=== PATIENT | male | born 1960 | race Caucasian/White ===

== ENCOUNTER 2020-09-23 12:19 | Inpatient (IN) | payer OTHER ==
[2020-09-23] MEDS ORDERED: SODIUM CHLORIDE 0.9% 500 ML 500 ML IV STA (13:04)
--- NOTE | 2020-09-23 13:07 | ED ---
General Adult HPI - General Chief complaint: Chest Pain Stated complaint: MIRIAM, leukemia Time Seen by Provider: 09/23/20 12:25 Source: patient, RN notes reviewed, old records reviewed Mode of arrival: wheelchair Limitations: no limitations - History of Present Illness Initial comments: This is a 60-year-old male who presents emergency Department with a past medical history significant for leukemia and COPD. Patient comes in today because he states she's been coughing and having shortness of breath 1 month. Patient states also during that time anytime he takes a deep breath or coughs he states he has sharp anterior chest pain. Patient states it is not coughing and taking deep breath he has no chest pain whatsoever. Patient also states he occa sionally said some discomfort in epigastric region of his abdomen. Patient denies any fever or chills. Patient states symptoms are worsening over the month. Patient denies any smoking history currently. Patient denies any nausea vomiting or diarrhea. Patient denies lightheadedness or dizziness. Patient denies any loss of taste or smell. Denies any swelling to his legs or calf tenderness. - Related Data Allergies Allergy/AdvReac Type Severity Reaction Status Date / Time Penicillins Allergy Unknown Verified 09/23/20 12:32 Review of Systems ROS Statement: Those systems with pertinent positive or pertinent negative responses have been documented in the HPI. ROS Other: All systems not noted in ROS Statement are negative. Past Medical History Past Medical History: Cancer Additional Past Medical History / Comment(s): CCL leukemia, emphysema History of Any Multi-Drug Resistant Organisms: None Reported Past Surgical History: Appendectomy Past Psychological History: Anxiety, Depression Smoking Status: Former smoker Past Alcohol Use History: None Reported Past Drug Use History: Marijuana General Exam - General Exam Comments Initial Comments: GENERAL: Patient is well-developed and well-nourished. Patient is nontoxic and well- hydrated and is in mild distress. ENT: Neck is soft and supple. No significant lymphadenopathy is noted. Oropharynx is clear. Moist mucous membranes. Neck has full range of motion without eliciting any pain. EYES: The sclera were anicteric and conjunctiva were pink and moist. Extraocular movements were intact and pupils were equal round and reactive to light. Eyelids were unremarkable. PULMONARY: Unlabored respirations. Good breath sounds bilaterally. No audible rales rhonchi or wheezing was noted. CARDIOVASCULAR: There is a regular rate and rhythm without any murmurs gallops or rubs. Patient has reproducible anterior chest pain on both sides of the sternum. ABDOMEN: Soft and nontender with normal bowel sounds. SKIN: Skin is clear with no lesions or rashes and otherwise unremarkable. NEUROLOGIC: Patient is alert and oriented x3. Cranial nerves II through XII are grossly intact. Motor and sensory are also intact. Normal speech, volume and content. Symmetrical smile. MUSCULOSKELETAL: Normal extremities with adequate strength and full range of motion. No lower extremity swelling or edema. No calf tenderness. LYMPHATICS: No significant lymphadenopathy is noted PSYCHIATRIC: Normal psychiatric evaluation. Limitations: no limitations Course Vital Signs 09/23/20 12:26 Temperature 98.6 F Pulse Rate 94 Respiratory 18 Rate Blood Pressure 125/77 O2 Sat by Pulse 96 Oximetry Medical Decision Making - Medical Decision Making EKG shows normal sinus rhythm at 95 bpm ND interval 260 QRS is 92 QT interval 352 QTC is 442. Patient's EKG shows no ST segment elevation or depression. Chest x-ray shows shows bilateral pleural effusions more the left than the right. Computed tomography scan was done because the d-dimer is 26. No PE was noted bilateral pleural effusions were noted. I spoke with Dr. Singer agreed to admit the patient admitted the patient wrote admitting orders. - Lab Data Result diagrams: 09/23/20 13:07 09/23/20 13:06 Lab Results 09/23/20 09/23/20 09/23/20 Range/Units 13:06 13:06 13:07 WBC 51.0 H* (3.8-10.6) k/uL RBC 4.41 (4.30-5.90) m/uL Hgb 11.3 L (13.0-17.5) gm/dL Hct 33.8 L (39.0-53.0) % MCV 76.7 L (80.0-100.0) fL MCH 25.7 (25.0-35.0) pg MCHC 33.5 (31.0-37.0) g/dL RDW 19.7 H (11.5-15.5) % Plt Count 505 H (150-450) k/uL MPV 6.6 Neutrophils % (Manual) 8 % Lymphocytes % (Manual) 92 % Neutrophils # (Manual) 4.08 (1.3-7.7) k/uL Lymphocytes # (Manual) 46.92 H (1.0-4.8) k/uL Nucleated RBCs 0 (0-0) /100 WBC Differential Comment P Manual Slide Review Performed Polychromasia Present Hypochromasia Slight Poikilocytosis (manual Present Anisocytosis Slight Microcytosis Moderate PT (9.0-12.0) sec INR (<1.2) APTT (22.0-30.0) sec D-Dimer (<0.60) mg/L FEU Sodium 135 L (137-145) mmol/L Potassium 4.5 (3.5-5.1) mmol/L Chloride 103 (98-107) mmol/L Carbon Dioxide 26 (22-30) mmol/L Anion Gap 6 mmol/L BUN 17 (9-20) mg/dL Creatinine 1.11 (0.66-1.25) mg/dL Est GFR (CKD-EPI)AfAm 82 (>60 ml/min/1.73 sqM) Est GFR (CKD-EPI)NonAf 71 (>60 ml/min/1.73 sqM) Glucose 124 H (74-99) mg/dL Plasma Lactic Acid Justin (0.7-2.0) mmol/L Calcium 9.4 (8.4-10.2) mg/dL Magnesium 1.9 (1.6-2.3) mg/dL Total Bilirubin 0.8 (0.2-1.3) mg/dL AST 30 (17-59) U/L ALT 14 (4-49) U/L Alkaline Phosphatase 116 (38-126) U/L Troponin I <0.012 (0.000-0.034) ng/mL Total Protein 7.0 (6.3-8.2) g/dL Albumin 3.7 (3.5-5.0) g/dL Amylase 41 (30-110) U/L Lipase 103 (23-300) U/L 09/23/20 09/23/20 Range/Units 13:07 13:07 WBC (3.8-10.6) k/uL RBC (4.30-5.90) m/uL Hgb (13.0-17.5) gm/dL Hct (39.0-53.0) % MCV (80.0-100.0) fL MCH (25.0-35.0) pg MCHC (31.0-37.0) g/dL RDW (11.5-15.5) % Plt Count (150-450) k/uL MPV Neutrophils % (Manual) % Lymphocytes % (Manual) % Neutrophils # (Manual) (1.3-7.7) k/uL Lymphocytes # (Manual) (1.0-4.8) k/uL Nucleated RBCs (0-0) /100 WBC Differential Comment Manual Slide Review Polychromasia Hypochromasia Poikilocytosis (manual Anisocytosis Microcytosis PT 25.8 H (9.0-12.0) sec INR 2.7 H (<1.2) APTT 61.0 H (22.0-30.0) sec D-Dimer 26.85 H (<0.60) mg/L FEU Sodium (137-145) mmol/L Potassium (3.5-5.1) mmol/L Chloride (98-107) mmol/L Carbon Dioxide (22-30) mmol/L Anion Gap mmol/L BUN (9-20) mg/dL Creatinine (0.66-1.25) mg/dL Est GFR (CKD-EPI)AfAm (>60 ml/min/1.73 sqM) Est GFR (CKD-EPI)NonAf (>60 ml/min/1.73 sqM) Glucose (74-99) mg/dL Plasma Lactic Acid Justin 0.8 (0.7-2.0) mmol/L Calcium (8.4-10.2) mg/dL Magnesium (1.6-2.3) mg/dL Total Bilirubin (0.2-1.3) mg/dL AST (17-59) U/L ALT (4-49) U/L Alkaline Phosphatase (38-126) U/L Troponin I (0.000-0.034) ng/mL Total Protein (6.3-8.2) g/dL Albumin (3.5-5.0) g/dL Amylase (30-110) U/L Lipase (23-300) U/L Disposition Clinical Impression: Leukemia, Pleural effusion, Thoracic lymphadenopathy, Dyspnea Disposition: ADMITTED IP TO THIS [facility] Referrals: Mikhail Masters MD [Primary Care Provider] - 1-2 days Time of Disposition: 15:25
--- NOTE | 2020-09-23 13:26 | XR ---
EXAMINATION TYPE: XR chest 2V DATE OF EXAM: 09/23/2020 COMPARISON: NONE HISTORY: Chest pain, weight loss, history of leukemia TECHNIQUE: Frontal and lateral views of the chest are obtained. FINDINGS: There is small left pleural effusion and associated left basilar opacity. No suspicious fo dwayne airspace opacity or pneumothorax. The cardiac silhouette size is within normal limits. The osse ous structures are intact. IMPRESSION: Small left pleural effusion with associated left basilar atelectasis and/or infiltrate.
[2020-09-23 13:55] LABS: Albumin 3.7 g/dL (3.5-5.0); Calcium 9.4 mg/dL (8.4-10.2); Magnesium 1.9 mg/dL (1.6-2.3); Potassium 4.5 mmol/L (3.5-5.1); Total Bilirubin 0.8 mg/dL (0.2-1.3)
[2020-09-23 14:00] LABS: Anisocytosis Slight; HCT 33.8 % (39.0-53.0); HGB 11.3 gm/dL (13.0-17.5); Hypochromasia Slight; MCH 25.7 pg (25.0-35.0); MCHC 33.5 g/dL (31.0-37.0); MCV 76.7 fL (80.0-100.0); Mean Platelet Volume 6.6; Microcytosis Moderate; Platelet Count 505 k/uL (150-450); RBC 4.41 m/uL (4.30-5.90); RDW 19.7 % (11.5-15.5)
[2020-09-23 14:14] LABS: INR 2.7 (<1.2); Prothrombin Time 25.8 sec (9.0-12.0)
[2020-09-23 14:19] LABS: D-Dimer 26.85 mg/L FEU (<0.60)
[2020-09-23] MEDS ORDERED: cefTRIAXone IN SWFI 1,000 MG/10 ML SYRINGE IVP STA (14:20)
[2020-09-23 14:57] LABS: Lymphocytes # (M) 46.92 k/uL (1.0-4.8); Neutrophils # (M) 4.08 k/uL (1.3-7.7); Neutrophils % (M) 8 %; Nucleated Red Blood Cells 0 /100 WBC (0-0); Total Cells Counted 200
[2020-09-23 15:01] LABS: Poikilocytosis (M) Present; Polychromasia Present
--- NOTE | 2020-09-23 15:08 | CT ---
EXAMINATION TYPE: CT chest angio for PE DATE OF EXAM: 09/23/2020 COMPARISON: Chest x-ray earlier today HISTORY: Chest pain. History of leukemia. Elevated d-dimer. Evaluate loss. CT DLP: 225.5 mGycm Automated exposure control for dose reduction was used. CONTRAST: CT Chest for pulmonary embolism performed with with IV Contrast, patient injected with 100 mL of Isov ue 370. MIP Images were created and reviewed. FINDINGS: LUNGS: Mild to moderate underlying emphysematous change. Small left pleural effusion. Associated left basilar compressive atelectasis. Tiny right pleural effusion with associated compressive atelectasis . No pneumothorax seen bilaterally. No suspicious masses MEDIASTINUM: There is satisfactory enhancement of the pulmonary artery and its branches, there is no CT evidence for pulmonary embolism. Satisfactory enhancement of the thoracic aorta without aneurysm o r dissection. Bovine type arch which is normal variant. No cardiomegaly. Coronary artery calcificatio n is present which is noted marker for underlying coronary artery disease. No pericardial effusion. OTHER: Suspicious bilateral abnormal axillary lymph nodes. Mediastinum shows ill-defined fluid and f at stranding with probable abnormal low dense lymph nodes in the prevascular space, AP window, bilate ral hilar region, and subcarinal region. Low dense posterior adenopathy in the lower thorax adjacent to the ascending aorta is present. IMPRESSION: 1. No CT evidence for acute pulmonary embolism. 2. [id number] emphysematous change with multiple tiny left greater than right pleural effusions . 3. Abnormal thoracic adenopathy suspicious for active neoplastic or leukemia recurrence given patient 's history of leukemia.
[2020-09-23] MEDS ORDERED: MAG HYDROX/AL HYDROX/SIMETH 30 ML, HYOSCYAMINE ELIXIR 10 ML, LIDOCAINE VISCOUS 2% 10 ML PO ONE ×3 (17:05)
--- NOTE | 2020-09-23 19:07 | P.CONS ---
History of Present Illness - Reason for Consult Consult date: 09/23/20 CLL, bilateral pleural effusions, adenopathy - History of Present Illness The patient is a 60-year-old white male, with a known history of chronic lymphatic leukemia, followed by Dr. Chen in the outpatient setting. He was diagnosed in 12/02. He has been followed so far without need for treatment. He states his baseline white count is in the 50,000 range. He does have some lymph node enlargement in the submandibular area, and some splenomegaly at baseline. He presented to the hospital with complains of shortness of breath, as well as cough that is mostly dry, present for about one month, with slow progression in symptoms. In the emergency room labs showed a white count of 51,000 with predominant lymphocytes consistent with his known history. CT of the chest was negative for PE. It did show small bilateral pleural effusions left greater than right. He was also noted to have bilateral emphysematous changes. In addition bilateral axillary nodes as well as mediastinal nodes were mentioned. Exact size was not however commented upon. The patient's coronavirus testing was negative. He was therefore admitted for further management and consult placed Review of Systems Constitutional: Reports fatigue, Reports weight loss (Reports gradual weight loss of about 15 pounds. However weight has been stable over the past 6 months) Eyes: denies blurred vision, denies pain Ears: deny: decreased hearing, ear discharge, earache, tinnitus Ears, nose, mouth and throat: Reports neck lump Cardiovascular: Reports shortness of breath Respiratory: Reports congestion, Reports cough with sputum, Reports dyspnea Gastrointestinal: Denies abdominal pain, Denies diarrhea, Denies nausea, Denies vomiting Genitourinary: Reports as per HPI Musculoskeletal: Denies myalgias Integumentary: Denies pruritus, Denies rash Neurological: Reports weakness Psychiatric: Denies anxiety, Denies depression Endocrine: Reports fatigue, Reports weight change Hematologic/Lymphatic: Reports as per HPI, Reports lymphadenopathy Past Medical History Past Medical History: Cancer Additional Past Medical History / Comment(s): CCL leukemia, emphysema, plueral effusion 09/23/2020 History of Any Multi-Drug Resistant Organisms: None Reported Past Surgical History: Appendectomy Past Psychological History: Anxiety, Depression Smoking Status: Former smoker Past Alcohol Use History: None Reported Past Drug Use History: Marijuana Medications and Allergies Home Medications Medication Instructions Recorded Confirmed Type Albuterol Sulfate [Proair Hfa] 2 puff INHALATION RT-QID PRN 09/23/20 09/23/20 History Bismuth Subsalicylate 262 mg PO Q6H PRN 09/23/20 09/23/20 History [Pepto-Bismol] Calcium Carbonate [Tums] 1,000 mg PO TID PRN 09/23/20 09/23/20 History Cyclobenzaprine [Flexeril] 10 mg PO HS 09/23/20 09/23/20 History Ferrous Sulfate [Feosol] 325 mg PO DAILY 09/23/20 09/23/20 History Fluticasone/Salmeterol [Advair 1 puff INHALATION RT-BID 09/23/20 09/23/20 History 250-50 Diskus] Ibuprofen [Motrin] 600 mg PO Q8H PRN 09/23/20 09/23/20 History Omeprazole 20 mg PO DAILY 09/23/20 09/23/20 History PARoxetine [Paxil] 20 mg PO DAILY 09/23/20 09/23/20 History Tiotropium Snow [Spiriva] 1 cap INHALATION RT-DAILY@1200 09/23/20 09/23/20 History clonazePAM [KlonoPIN] 0.5 mg PO BID PRN 09/23/20 09/23/20 History Allergies Allergy/AdvReac Type Severity Reaction Status Date / Time Penicillins Allergy Unknown Verified 09/23/20 15:35 Childhood Physical Exam Vitals: Vital Signs Temp Pulse Resp BP Pulse Ox 09/23/20 17:37 78 18 138/70 97 09/23/20 16:01 98.3 F 78 18 130/86 94 L 09/23/20 12:26 98.6 F 94 18 125/77 96 Intake and Output 09/23/20 09/23/20 09/23/20 06:59 14:59 22:59 Other: Weight 62.142 kg 62.142 kg - Constitutional General appearance: no acute distress - EENT Eyes: EOMI, PERRLA ENT: hearing grossly normal, normal oropharynx - Neck Neck: lymphadenopathy (Bilateral submandibular nodes are large, 2.5-3 cm) Thyroid: bilateral: normal size - Respiratory Respiratory: bilateral: diminished (Suggestive of COPD. Markedly decreased air entry in bilateral bases) - Cardiovascular Rhythm: regular Heart sounds: normal: S1, S2 - Gastrointestinal General gastrointestinal: normal bowel sounds, soft, splenomegaly (About 2 fingers below costal margin) - Integumentary Integumentary: normal - Neurologic Neurologic: CNII-XII intact - Musculoskeletal Musculoskeletal: generalized weakness, strength equal bilaterally - Psychiatric Psychiatric: A&O x's 3, appropriate affect Results CBC & Chem 7: 09/23/20 13:07 09/23/20 13:06 Labs: Abnormal Lab Results - Last 24 Hours (Table) 09/23/20 09/23/20 09/23/20 Range/Units 13:06 13:07 13:07 WBC 51.0 H* (3.8-10.6) k/uL Hgb 11.3 L (13.0-17.5) gm/dL Hct 33.8 L (39.0-53.0) % MCV 76.7 L (80.0-100.0) fL RDW 19.7 H (11.5-15.5) % Plt Count 505 H (150-450) k/uL Lymphocytes # (Manual) 46.92 H (1.0-4.8) k/uL PT 25.8 H (9.0-12.0) sec INR 2.7 H (<1.2) APTT 61.0 H (22.0-30.0) sec D-Dimer 26.85 H (<0.60) mg/L FEU Sodium 135 L (137-145) mmol/L Glucose 124 H (74-99) mg/dL Chest x-ray: report reviewed CT scan - chest: report reviewed Assessment and Plan (1) Chronic lymphocytic leukemia not having achieved remission Narrative/Plan: The patient was diagnosed with the same, almost 2 years ago. He had elevated white count and some palpable adenopathy but no other symptoms. Therefore according to the standard of care, he has been followed with observation with no evidence of progression so far. - On evaluation today his WBC is essentially in the same range at 51,000 with predominant lymphocytes. He does appear to have some progression in adenopathy with bilateral axillary nodes palpable. However this is not very marked. CT scans mention presence of mediastinal adenopathy. However the size was not noted. - From the on-call standpoint, the main issue would be to determine if the patient is having progression which is symptomatic or not. The main factor in this would be the thoracic adenopathy. Bowel movements and has been consulted. I will discuss with them as to how significant the mediastinal nodes appeared t o be. In addition we'll also discuss how significant the pleural effusions are, especially if they are enough to warrant thoracentesis. - If lymph nodes and/or pleural effusions are felt to be significant, then progression of the CLL, including as a cause of his current symptoms becomes more likely. In that situation we would need to consider starting the patient on active treatment, as an outpatient. However if these are not felt to be significant, and shortness of breath is more likely due to COPD exacerbation, then we can continue observation. - If the patient doesn't require a thoracentesis, I would recommend performing a low cytometry for B lymphocytes on the fluid, in addition to the other routine tests. Current Visit: Yes Status: Acute Code(s): C91.10 - CHRONIC LYMPHOCYTIC LEUK OF B-CELL TYPE NOT ACHIEVE REMIS SNOMED Code(s): 83724804 (2) Dyspnea Narrative/Plan: As noted above, at this time the main issue is to determine if this is due to progressive CLL, specifically progressive mediastinal adenopathy and located effusions, versus COPD exacerbation. Plan as noted above. The patient clinically appears fairly comfortable at this time Current Visit: Yes Status: Acute Code(s): R06.00 - DYSPNEA, UNSPECIFIED SNOMED Code(s): 803016837 (3) Anemia Narrative/Plan: The patient has a mild anemia on this admission. Limited workup for the same will be ordered, with labs for blood loss and for hemolysis Current Visit: Yes Status: Acute Code(s): D64.9 - ANEMIA, UNSPECIFIED SNOMED Code(s): 197626754 (4) Coagulopathy Narrative/Plan: Patient's labs show elevated PT, PTT and d-dimer. He denies any use of anticoagulation. Check fibrinogen level. Above labs will be repeated on the other extremity, which does not have the IV. If these are persistently abnormal, and the patient will need additional workup for coagulopathy Current Visit: Yes Status: Acute Code(s): D68.9 - COAGULATION DEFECT, UNSPECIFIED SNOMED Code(s): 32783895
[2020-09-23 20:44] LABS: INR 3.1 (<1.2); Partial Thromboplastin Time 68.3 sec (22.0-30.0)
[2020-09-23] MEDS ORDERED: ACETAMINOPHEN TAB 500 MG TAB PO PRN (22:00)
[2020-09-23] MEDS ORDERED: clonazePAM 0.5 MG TAB PO PRN (22:00)
[2020-09-23] MEDS ORDERED: CALCIUM CARBONATE 500 MG CHEWABLE PO PRN (22:00)
[2020-09-23] MEDS ORDERED: IPRATROPIUM-ALBUTEROL 3 ML NEB INHALATION PRN (22:02)
[2020-09-23] MEDS ORDERED: ALBUTEROL HFA INHALER INHALATION PRN (22:15)
[2020-09-23] MEDS: CYCLOBENZAPRINE 10 MG TAB PO SCH (22:33)
[2020-09-23] MEDS: ACETAMINOPHEN TAB 500 MG TAB PO SCH (22:33)
[2020-09-23] MEDS ORDERED: BISMUTH SUBSALICYLATE 4,192 MG/240 ML BOTTLE PO PRN (23:00)
[2020-09-24] MEDS: ACETAMINOPHEN TAB 500 MG TAB PO SCH ×4 (05:34→23:16)
[2020-09-24 06:53] LABS: INR 3.2 (<1.2); Partial Thromboplastin Time 67.8 sec (22.0-30.0); Prothrombin Time 31.2 sec (9.0-12.0)
[2020-09-24] MEDS: SYMBICORT 80-4.5 MCG INHALER INHALATION SCH ×2 (07:31→20:02)
[2020-09-24] MEDS: FERROUS SULFATE 325 MG TAB PO SCH (09:05)
[2020-09-24] MEDS: PANTOPRAZOLE 40 MG TABLET PO SCH (09:05)
[2020-09-24] MEDS: PARoxetine 20 MG TAB PO SCH (09:05)
--- NOTE | 2020-09-24 10:56 | P.PN ---
Subjective Progress Note Date: 09/24/20 Patient reports improvement in shortness of breath and cough. He states he feels significantly better since his admission. No obvious bleeding or bruising noted. Objective - Vital Signs Vital signs: Vital Signs Temp 98 F 09/24/20 09:10 Pulse 89 09/24/20 09:10 Resp 18 09/24/20 09:10 BP 120/86 09/24/20 09:10 Pulse Ox 97 09/24/20 09:10 Intake & Output 09/23/20 09/24/20 09/24/20 18:59 06:59 18:59 Weight 62.142 kg Other: Voiding Method Toilet # Voids 1 1 - Constitutional General appearance: Present: no acute distress - EENT Eyes: Present: EOMI ENT: Present: hearing grossly normal, normal oropharynx - Neck Neck: Present: lymphadenopathy - Respiratory Respiratory: bilateral: diminished - Cardiovascular Rhythm: regular Heart sounds: normal: S1, S2 - Gastrointestinal General gastrointestinal: Present: soft, splenomegaly - Integumentary Integumentary: Present: normal - Neurologic Neurologic: Present: CNII-XII intact - Musculoskeletal Musculoskeletal: Present: strength equal bilaterally - Psychiatric Psychiatric: Present: A&O x's 3, appropriate affect - Additional findings Additional findings: Stable bilateral axillary adenopathy - Labs CBC & Chem 7: 09/23/20 13:07 09/23/20 13:06 Labs: Abnormal Lab Results - Last 24 Hours (Table) 09/23/20 09/23/20 09/23/20 Range/Units 13:06 13:07 13:07 WBC 51.0 H* (3.8-10.6) k/uL Hgb 11.3 L (13.0-17.5) gm/dL Hct 33.8 L (39.0-53.0) % MCV 76.7 L (80.0-100.0) fL RDW 19.7 H (11.5-15.5) % Plt Count 505 H (150-450) k/uL Lymphocytes # (Manual) 46.92 H (1.0-4.8) k/uL PT 25.8 H (9.0-12.0) sec INR 2.7 H (<1.2) APTT 61.0 H (22.0-30.0) sec D-Dimer 26.85 H (<0.60) mg/L FEU Sodium 135 L (137-145) mmol/L Glucose 124 H (74-99) mg/dL 09/23/20 09/24/20 Range/Units 19:20 05:33 WBC (3.8-10.6) k/uL Hgb (13.0-17.5) gm/dL Hct (39.0-53.0) % MCV (80.0-100.0) fL RDW (11.5-15.5) % Plt Count (150-450) k/uL Lymphocytes # (Manual) (1.0-4.8) k/uL PT 30.0 H 31.2 H (9.0-12.0) sec INR 3.1 H 3.2 H (<1.2) APTT 68.3 H 67.8 H (22.0-30.0) sec D-Dimer (<0.60) mg/L FEU Sodium (137-145) mmol/L Glucose (74-99) mg/dL Assessment and Plan (1) Coagulopathy Narrative/Plan: The patient had coags extubated last night and today, from peripheral stick from the upper extremity without the IV. This continued to show elevated PTT/INR and PTT. Etiology at this time is unclear. The patient is asymptomatic from the same. Given history of CLL, there is suspicion that this could represent an inhibitor. - Mixing study has been ordered, along with lupus anticoagulant - Continue to monitor for any signs of clinical bleeding or bruising. Current Visit: Yes Status: Acute Code(s): D68.9 - COAGULATION DEFECT, UNSPECIFIED SNOMED Code(s): 55437556 (2) Chronic lymphocytic leukemia not having achieved remission Narrative/Plan: If coagulopathy is due to development of new inhibitor, then this could potentially be an indication for treatment. At this time I'm also waiting evaluation by pulmonary medicine as to severity of the pleural effusions and mediastinal adenopathy. Current Visit: Yes Status: Acute Code(s): C91.10 - CHRONIC LYMPHOCYTIC LEUK OF B-CELL TYPE NOT ACHIEVE REMIS SNOMED Code(s): 44887106 (3) Dyspnea Current Visit: Yes Status: Acute Code(s): R06.00 - DYSPNEA, UNSPECIFIED SNOMED Code(s): 319224579 (4) Anemia Narrative/Plan: Labs ordered. Results pending to rule out any blood loss or hemolysis Current Visit: Yes Status: Acute Code(s): D64.9 - ANEMIA, UNSPECIFIED SNOMED Code(s): 249055415
[2020-09-24 11:01] LABS: Anisocytosis Slight; HCT 38.3 % (39.0-53.0); HGB 11.6 gm/dL (13.0-17.5); Hypochromasia Slight; MCH 23.9 pg (25.0-35.0); MCHC 30.3 g/dL (31.0-37.0); MCV 78.8 fL (80.0-100.0); Mean Platelet Volume 7.5; Microcytosis Slight; Platelet Count 527 k/uL (150-450); RBC 4.86 m/uL (4.30-5.90); RDW 19.6 % (11.5-15.5); Reticulocyte % 1.5 % (0.5-2.0); WBC 49.6 k/uL (3.8-10.6)
[2020-09-24] MEDS ORDERED: IPRATROPIUM 0.5 MG/2.5 ML NEBU INHALATION SCH (12:00)
[2020-09-24 12:24] LABS: Lymphocytes # (M) 43.65 k/uL (1.0-4.8); Monocytes # (M) 1.49 k/uL (0-1.0); Neutrophils # (M) 4.46 k/uL (1.3-7.7); Neutrophils % (M) 9 %; Nucleated Red Blood Cells 0 /100 WBC (0-0); Total Cells Counted 100
[2020-09-24 12:26] LABS: Poikilocytosis (M) Present
[2020-09-24 12:39] VITALS: BMI 22.1
--- NOTE | 2020-09-24 14:47 | P.CNPUL ---
History of Present Illness Consult date: 09/24/20 Requesting physician: Gregor Singer Reason for consult: dyspnea, abnormal CXR/CT (Small left-sided pleural effusion) Chief complaint: Shortness of breath, chest wall pain History of present illness: This is a very pleasant 60-year-old gentleman with a known history of chronic lymphocytic leukemia, currently under surveillance, on no treatment, follows with Dr. Chen, anxiety/depression, previous smoking history, marijuana use, COPD. He's been maintained on Advair, Spiriva, pro-air in the outpatient setting. He presented to the emergency room yesterday with complaints of increasing shortness of breath, cough and congestion that his been going on for possibly one month. He is also had some sharp anterior chest pain and chest wall pain. Abdominal discomfort as well. Chest x-ray revealed small left pleural effusion with associated left basilar atelectasis/infiltrate. CT angiogram ruled out pulmonary embolism. There is [id number] emphysematous changes and multiple tiny left greater than right pleural effusions. There is also noted abnormal thoracic adenopathy suspicious for active neoplastic or leukemia progression given the patient's history. His baseline white count is around 50,000. He does have some lymph node enlargement in the submandibular area and possible splenomegaly accounting for his abdominal discomfort. White count 49.6. Hemoglobin 11.6. Platelet count 527. Lymphocytes 43.6. Monocytes 1.49. INR 3.2. D-dimer 26.85. Sodium 135. Potassium 4.5. Creatinine 1.11. Troponin negative. Coronavirus negative. He is seen today in consultation on the regular medical floor. He is currently sitting up at the bedside. Awake and alert in no acute distress. Maintaining good O2 saturations in the upper 90s on room air. He's been afebrile. Hemodynamically stable. Initiated on Symbicort and DuoNeb inhalations. Review of Systems REVIEW OF SYSTEMS: CONSTITUTIONAL: Denies any recent significant weight loss or weight gain. EYES: Denies change in vision. EARS, NOSE, MOUTH, THROAT: Denies headaches, denies sore throat. CARDIOVASCULAR: Positive for chest wall pain no typical chest pain, palpitations or syncopal episodes. RESPIRATORY: Positive for shortness of breath, cough, congestion no hemoptysis. GASTROINTESTINAL: Denies change in appetite, denies abdominal pain GENITOURINARY: Denies hematuria, denies infections. MUSKULOSKELETAL: Denies pain, denies swelling. INTEGUMENTARY: Denies rash, denies eczema. NEUROLOGICAL: Denies recent memory loss, no recent seizure activity. PSYCHIATRIC: Denies anxiety, denies depression. HEMATOLOGIC/LYMPHATIC: Positive for enlarged lymph nodes. Past Medical History Past Medical History: Cancer Additional Past Medical History / Comment(s): CCL leukemia, emphysema, plueral effusion 09/23/2020 History of Any Multi-Drug Resistant Organisms: None Reported Past Surgical History: Appendectomy Past Psychological History: Anxiety, Depression Smoking Status: Former smoker Past Alcohol Use History: None Reported Past Drug Use History: Marijuana Medications and Allergies Home Medications Medication Instructions Recorded Confirmed Type Albuterol Sulfate [Proair Hfa] 2 puff INHALATION RT-QID PRN 09/23/20 09/23/20 History Bismuth Subsalicylate 262 mg PO Q6H PRN 09/23/20 09/23/20 History [Pepto-Bismol] Calcium Carbonate [Tums] 1,000 mg PO TID PRN 09/23/20 09/23/20 History Cyclobenzaprine [Flexeril] 10 mg PO HS 09/23/20 09/23/20 History Ferrous Sulfate [Feosol] 325 mg PO DAILY 09/23/20 09/23/20 History Fluticasone/Salmeterol [Advair 1 puff INHALATION RT-BID 09/23/20 09/23/20 History 250-50 Diskus] Ibuprofen [Motrin] 600 mg PO Q8H PRN 09/23/20 09/23/20 History Omeprazole 20 mg PO DAILY 09/23/20 09/23/20 History PARoxetine [Paxil] 20 mg PO DAILY 09/23/20 09/23/20 History Tiotropium [place] [Spiriva] 1 cap INHALATION RT-DAILY@1200 09/23/20 09/23/20 History clonazePAM [KlonoPIN] 0.5 mg PO BID PRN 09/23/20 09/23/20 History Allergies Allergy/AdvReac Type Severity Reaction Status Date / Time Penicillins Allergy Unknown Verified 09/23/20 15:35 Childhood Physical Exam Vitals: Vital Signs Temp Pulse Pulse Resp BP BP Pulse Ox 09/24/20 11:34 88 09/24/20 11:22 84 09/24/20 09:10 98 F 89 18 120/86 97 09/24/20 07:30 17 09/24/20 01:06 98.1 F 74 16 118/71 95 09/23/20 20:00 97.4 F L 90 20 125/76 95 09/23/20 17:37 78 18 138/70 97 09/23/20 16:01 98.3 F 78 18 130/86 94 L Intake and Output 09/23/20 09/24/20 09/24/20 22:59 06:59 14:59 Other: Voiding Method Toilet # Voids 1 1 Weight 62.142 kg 62.142 kg GENERAL EXAM: Alert, active, very pleasant 60-year-old gentleman, on room air, comfortable in no apparent distress. HEAD: Normocephalic. EYES: Normal reaction of pupils, equal size. NOSE: Clear with pink turbinates. THROAT: No erythema or exudates. NECK: Palpable lymph nodes. CHEST: No chest wall deformity. LUNGS: Equal air entry with faint end expiratory wheeze, diminished in the left base. CVS: S1 and S2 normal with no audible murmur, regular rhythm. ABDOMEN: Suspect splenomegaly, normal bowel sounds, no guarding or rigidity. SPINE: No scoliosis or deformity SKIN: No rashes CENTRAL NERVOUS SYSTEM: No focal deficits, tone is normal in all 4 extremities. EXTREMITIES: Bilateral axillary lymph nodes palpable. There is no peripheral edema. No clubbing, no cyanosis. Peripheral pulses are intact. Results - Laboratory Findings CBC and BMP: 09/24/20 05:33 09/23/20 13:06 PT/INR, D-dimer PT 31.2 sec (9.0-12.0) H 09/24/20 05:33 INR 3.2 (<1.2) H 09/24/20 05:33 D-Dimer 26.85 mg/L FEU (<0.60) H 09/23/20 13:07 Abnormal lab findings: Abnormal Labs 09/23/20 09/23/20 09/23/20 13:06 13:07 13:07 WBC 51.0 H* Hgb 11.3 L Hct 33.8 L MCV 76.7 L MCH MCHC RDW 19.7 H Plt Count 505 H Lymphocytes # (Manual) 46.92 H Monocytes # (Manual) PT 25.8 H INR 2.7 H APTT 61.0 H D-Dimer 26.85 H Sodium 135 L Glucose 124 H 09/23/20 09/24/20 09/24/20 19:20 05:33 05:33 WBC 49.6 H Hgb 11.6 L Hct 38.3 L MCV 78.8 L MCH 23.9 L MCHC 30.3 L RDW 19.6 H Plt Count 527 H Lymphocytes # (Manual) 43.65 H Monocytes # (Manual) 1.49 H PT 30.0 H 31.2 H INR 3.1 H 3.2 H APTT 68.3 H 67.8 H D-Dimer Sodium Glucose - Diagnostic Findings Chest x-ray: image reviewed CT scan - chest: image reviewed Assessment and Plan Assessment: 1 Dyspnea secondary to small bilateral effusions left greater than right, acute exacerbation of chronic obstructive pulmonary disease 2 Chest wall pain secondary to above 3 Lymphadenopathy, splenomegaly secondary to chronic lymphocytic leukemia 4 Chronic lymphocytic leukemia under surveillance, no treatment thus far 5 Leukocytosis secondary to above 6 Coagulopathy secondary to above 7 Former smoker 8 History of anxiety/depression 9 History of marijuana use Plan: The patient was seen and evaluated by Dr. Florez Chest x-ray, CAT scans and labs reviewed Consult interventional radiology for diagnostic CT-guided left-sided thoracentesis Rule out progression of his CLL Continue Symbicort, DuoNeb inhalations Add a short course of steroids We will continue to follow and make further recommendations based on his clinical status I, the cosigning physician, performed a history & physical examination of the patient. Lungs sounds with faint end expiratory wheeze, diminished in the left base. Maintaining good O2 saturations in the 90s on room air. I discussed the assessment and plan of care with my nurse practitioner, Elif Regalado. I attest to the above consultation as dictated by her. Time with Patient: Greater than 30
[2020-09-24] MEDS: IPRATROPIUM-ALBUTEROL 3 ML NEB INHALATION SCH ×2 (15:06→20:02)
[2020-09-24] MEDS: methylPREDNISolone SOD SUCCI 40 MG/ML 1 ML VIAL IV SCH ×2 (15:18→19:39)
[2020-09-24] MEDS ORDERED: HYDROmorphone 1 MG/ML 1 ML SYRINGE IVP PRN (17:13)
[2020-09-24 18:05] LABS: % Iron Saturation 27.94 (15.00-50.00)
[2020-09-24] MEDS: CYCLOBENZAPRINE 10 MG TAB PO SCH (19:38)
--- NOTE | 2020-09-24 21:22 | P.HPIM ---
History of Present Illness H&P Date: 09/24/20 Chief Complaint: Short of breath History of presenting complaint: This is a pleasant 60-year-old patient of Dr. Renny Masters. Chronic stable medical conditions include anxiety depression, GERD, COPD. Patient has known CLL with a baseline count running around 50. Follow[address] Faulkner. For at least over 2 weeks patient is noted to be increasingly short of breath. Has got a cough especially when he lies down. Does bring up some white phlegm. Denies any obvious fever and chills. Appetite is okay. The course of the year patient lost close to 30 pounds from 160 down to about 1:30 pounds. Review of systems: GEN.: Tired EYES: None HEENT: None NECK: None RESPIRATORY: As above CARDIOVASCULAR: None GASTROINTESTINAL: None GENITOURINARY: None MUSCULOSKELETAL: None LYMPHATICS: None HEMATOLOGICAL: None PSYCHIATRY: None NEUROLOGICAL: None Past medical history to include: Chronic lymphoid leukemia, COPD, anxiety, GERD, Social history: Patient smoked about a pack and half a day for close to 42 years stopped about 5 days ago. Lives alone. Employed for [email or web address] Family history: Reviewed, noncontributory to presentation Physical examination: VITAL SIGNS: 98.6, 94, 18, 125/77, 96% room air GENERAL: BMI 22.1, reclining in bed, not in distress. EYES: Pupils equal. Conjunctiva normal. HEENT: External appearance of nose and ears normal, oral cavity grossly normal. NECK: JVD not raised; masses not palpable. HEART: First and second heart sounds are normal; no edema. LUNGS: Respiratory rate increased, decreased breath sounds. ABDOMEN: Soft, nontender, liver spleen not palpable, no masses palpable. PSYCH: Alert and oriented x3; mood and affect normal. NEUROLOGICAL: Cranial nerves grossly intact; no facial asymmetry, power and sensation grossly intact. LYMPHATICS: [Lymph nodes palpable in the neck and submandibular area. INVESTIGATIONS, reviewed in the clinical context: White count 51 hemoglobin 11.3 platelets 505 lymphocytes 46.9 Pro-time 25.8 PTT 61.0 d-dimer 26.8 Potassium 4.5 creatinine 1.11 Coronavirus P/Cr-not detected EKG tracing personally reviewed by me-normal sinus rhythm Chest x-ray film personally reviewed by me-left pleural effusion CT chest angiogram for PE protocol-no PE. Mild to moderate emphysematous changes with left greater than right pleural effusion. Abnormal adenopathy Assessment: -Acute COPD exacerbation in an ex-smoker -Left pleural effusion, cause unclear -Chronic lymphocytic leukemia -Abnormal clotting profile with abnormal pro time PTT -GERD -Anxiety depression not otherwise specified Plan: Patient put on IV Solu-Medrol DuoNeb home medications resumed. Consultation is made to pulmonary and hematology. Left pleural effusion leading to be tapped. Care was discussed with the patient questions answered. Patient is auto anticoagulated. Past Medical History Past Medical History: Cancer Additional Past Medical History / Comment(s): CCL leukemia, emphysema, plueral effusion 09/23/2020 History of Any Multi-Drug Resistant Organisms: None Reported Past Surgical History: Appendectomy Past Psychological History: Anxiety, Depression Smoking Status: Former smoker Past Alcohol Use History: None Reported Past Drug Use History: Marijuana Medications and Allergies Home Medications Medication Instructions Recorded Confirmed Type Albuterol Sulfate [Proair Hfa] 2 puff INHALATION RT-QID PRN 09/23/20 09/23/20 History Bismuth Subsalicylate 262 mg PO Q6H PRN 09/23/20 09/23/20 History [Pepto-Bismol] Calcium Carbonate [Tums] 1,000 mg PO TID PRN 09/23/20 09/23/20 History Cyclobenzaprine [Flexeril] 10 mg PO HS 09/23/20 09/23/20 History Ferrous Sulfate [Feosol] 325 mg PO DAILY 09/23/20 09/23/20 History Fluticasone/Salmeterol [Advair 1 puff INHALATION RT-BID 09/23/20 09/23/20 History 250-50 Diskus] Ibuprofen [Motrin] 600 mg PO Q8H PRN 09/23/20 09/23/20 History Omeprazole 20 mg PO DAILY 09/23/20 09/23/20 History PARoxetine [Paxil] 20 mg PO DAILY 09/23/20 09/23/20 History Tiotropium [place] [Spiriva] 1 cap INHALATION RT-DAILY@1200 09/23/20 09/23/20 History clonazePAM [KlonoPIN] 0.5 mg PO BID PRN 09/23/20 09/23/20 History Allergies Allergy/AdvReac Type Severity Reaction Status Date / Time Penicillins Allergy Unknown Verified 09/23/20 15:35 Childhood Physical Exam Vitals: Vital Signs Temp Pulse Pulse Resp BP BP Pulse Ox 09/24/20 11:34 88 09/24/20 11:22 84 09/24/20 09:10 98 F 89 18 120/86 97 09/24/20 07:30 17 09/24/20 01:06 98.1 F 74 16 118/71 95 09/23/20 20:00 97.4 F L 90 20 125/76 95 09/23/20 17:37 78 18 138/70 97 09/23/20 16:01 98.3 F 78 18 130/86 94 L 09/23/20 12:26 98.6 F 94 18 125/77 96 Intake and Output 09/23/20 09/24/20 09/24/20 22:59 06:59 14:59 Other: Voiding Method Toilet # Voids 1 1 Weight 62.142 kg Results CBC & Chem 7: 09/24/20 05:33 09/23/20 13:06 Labs: Abnormal Lab Results - Last 24 Hours (Table) 09/23/20 09/23/20 09/23/20 Range/Units 13:06 13:07 13:07 WBC 51.0 H* (3.8-10.6) k/uL Hgb 11.3 L (13.0-17.5) gm/dL Hct 33.8 L (39.0-53.0) % MCV 76.7 L (80.0-100.0) fL MCH (25.0-35.0) pg MCHC (31.0-37.0) g/dL RDW 19.7 H (11.5-15.5) % Plt Count 505 H (150-450) k/uL Lymphocytes # (Manual) 46.92 H (1.0-4.8) k/uL PT 25.8 H (9.0-12.0) sec INR 2.7 H (<1.2) APTT 61.0 H (22.0-30.0) sec D-Dimer 26.85 H (<0.60) mg/L FEU Sodium 135 L (137-145) mmol/L Glucose 124 H (74-99) mg/dL 09/23/20 09/24/20 09/24/20 Range/Units 19:20 05:33 05:33 WBC 49.6 H (3.8-10.6) k/uL Hgb 11.6 L (13.0-17.5) gm/dL Hct 38.3 L (39.0-53.0) % MCV 78.8 L (80.0-100.0) fL MCH 23.9 L (25.0-35.0) pg MCHC 30.3 L (31.0-37.0) g/dL RDW 19.6 H (11.5-15.5) % Plt Count 527 H (150-450) k/uL Lymphocytes # (Manual) (1.0-4.8) k/uL PT 30.0 H 31.2 H (9.0-12.0) sec INR 3.1 H 3.2 H (<1.2) APTT 68.3 H 67.8 H (22.0-30.0) sec D-Dimer (<0.60) mg/L FEU Sodium (137-145) mmol/L Glucose (74-99) mg/dL Thrombosis Risk Factor Assmnt - Choose All That Apply Any of the Below Risk Factors Present?: Yes Each Factor Represents 1 point: Abnormal pulmonary function (COPD) Other Risk Factors: Yes Each Risk Factor Represents 2 Points: Age 61-74 years Other congenital or acquired thrombophilia - If yes, enter type in comment: No Thrombosis Risk Factor Assessment Total Risk Factor Score: 3 Thrombosis Risk Factor Assessment Level: Moderate Risk
[2020-09-25] MEDS: ACETAMINOPHEN TAB 500 MG TAB PO SCH ×3 (05:00→18:23)
[2020-09-25] MEDS: IPRATROPIUM-ALBUTEROL 3 ML NEB INHALATION SCH ×4 (08:13→20:53)
[2020-09-25] MEDS: SYMBICORT 80-4.5 MCG INHALER INHALATION SCH ×2 (08:13→20:53)
[2020-09-25] MEDS: FERROUS SULFATE 325 MG TAB PO SCH (09:18)
[2020-09-25] MEDS: PARoxetine 20 MG TAB PO SCH (09:19)
[2020-09-25] MEDS: PANTOPRAZOLE 40 MG TABLET PO SCH (09:19)
[2020-09-25] MEDS: methylPREDNISolone SOD SUCCI 40 MG/ML 1 ML VIAL IV SCH ×2 (09:19→20:31)
--- NOTE | 2020-09-25 13:07 | P.PN ---
Subjective Progress Note Date: 09/25/20 Principal diagnosis: Dyspnea, small left-sided pleural effusion This is a very pleasant 60-year-old gentleman with a known history of chronic lymphocytic leukemia, currently under surveillance, on no treatment, follows with Dr. Chen, anxiety/depression, previous smoking history, marijuana use, COPD. He's been maintained on Advair, Spiriva, pro-air in the outpatient setting. He presented to the emergency room yesterday with complaints of increasing shortness of breath, cough and congestion that his been going on for possibly one month. He is also had some sharp anterior chest pain and chest wall pain. Abdominal discomfort as well. Chest x-ray revealed small left ple ural effusion with associated left basilar atelectasis/infiltrate. CT angiogram ruled out pulmonary embolism. There is [id number] emphysematous changes and multiple tiny left greater than right pleural effusions. There is also noted abnormal thoracic adenopathy suspicious for active neoplastic or leukemia progression given the patient's history. His baseline white count is around 50,000. He does have some lymph node enlargement in the submandibular area and possible splenomegaly accounting for his abdominal discomfort. White count 49.6. Hemoglobin 11.6. Platelet count 527. Lymphocytes 43.6. Monocytes 1.49. INR 3.2. D-dimer 26.85. Sodium 135. Potassium 4.5. Creatinine 1.11. Troponin negative. Coronavirus negative. He is seen today in consultation on the regular medical floor. He is currently sitting up at the bedside. Awake and alert in no acute distress. Maintaining good O2 saturations in the upper 90s on room air. He's been afebrile. Hemodynamically stable. Initiated on Symbicort and DuoNeb inhalations. The patient is seen today February or 2020 follow-up on the regular medical floor. He is awake and alert in no acute distress. Currently sitting up in a chair at the bedside. Maintaining O2 saturations in the 90s on room air. Blood culture reveals no growth to date. Remains on Symbicort, DuoNeb inhalations and IV Solu-Medrol. We easier today compared to yesterday. Objective - Vital Signs Vital signs: Vital Signs Temp 97.5 F L 09/25/20 08:00 Pulse 88 09/25/20 12:01 Resp 17 09/25/20 08:00 BP 117/71 09/25/20 08:00 Pulse Ox 94 L 09/25/20 08:00 Intake & Output 09/24/20 09/25/20 09/25/20 18:59 06:59 18:59 Weight 62.142 kg Other: Voiding Method Toilet # Voids 2 2 # Bowel Movements 1 - Exam GENERAL EXAM: Alert, active, very pleasant 60-year-old gentleman, on room air, comfortable in no apparent distress. HEAD: Normocephalic. EYES: Normal reaction of pupils, equal size. NOSE: Clear with pink turbinates. THROAT: No erythema or exudates. NECK: Palpable lymph nodes. CHEST: No chest wall deformity. LUNGS: Equal air entry with faint end expiratory wheeze, diminished in the left base. CVS: S1 and S2 normal with no audible murmur, regular rhythm. ABDOMEN: Suspect splenomegaly, normal bowel sounds, no guarding or rigidity. SPINE: No scoliosis or deformity SKIN: No rashes CENTRAL NERVOUS SYSTEM: No focal deficits, tone is normal in all 4 extremities. EXTREMITIES: Bilateral axillary lymph nodes palpable. There is no peripheral edema. No clubbing, no cyanosis. Peripheral pulses are intact. - Labs CBC & Chem 7: 09/24/20 05:33 09/23/20 13:06 Labs: Abnormal Lab Results - Last 24 Hours (Table) 09/24/20 09/24/20 Range/Units 05:33 05:33 Haptoglobin 231.0 H (31.2-198.0) mg/dL Iron 57 L (65-175) ug/dL TIBC 204 L (228-460) ug/dL Microbiology - Last 24 Hours (Table) 09/23/20 15:00 Blood Culture - Preliminary Blood No Growth after 24 hours 09/23/20 14:43 Blood Culture - Preliminary Blood No Growth after 24 hours Assessment and Plan Assessment: 1 Dyspnea secondary to small bilateral effusions left greater than right, acute exacerbation of chronic obstructive pulmonary disease 2 Chest wall pain secondary to above 3 Lymphadenopathy, splenomegaly secondary to chronic lymphocytic leukemia 4 Chronic lymphocytic leukemia under surveillance, no treatment thus far 5 Leukocytosis secondary to above 6 Coagulopathy secondary to above 7 Former smoker 8 History of anxiety/depression 9 History of marijuana use Plan: The patient was seen and evaluated by Dr. Vikki Hartley from the pulmonary standpoint, on room air Consulted interventional radiology for diagnostic CT-guided left-sided thoracentesis Rule out progression of his CLL Continue Symbicort, DuoNeb inhalations, steroids We will continue to follow and make further recommendations based on his clinical status I, the cosigning physician, performed a history & physical examination of the patient. Lungs sounds with faint end expiratory wheeze, diminished in the left base. Maintaining good O2 saturations in the 90s on room air. I discussed the assessment and plan of care with my nurse practitioner, Elif Regalado. I attest to the above note as dictated by her.
[2020-09-25] MEDS: CYCLOBENZAPRINE 10 MG TAB PO SCH (20:32)
--- NOTE | 2020-09-25 20:39 | P.PN ---
Progress Note - Text Progress Note Date: 09/25/20 Chief Complaint: Short of breath History of presenting complaint: This is a pleasant 60-year-old patient of Dr. Renny Masters. Chronic stable medical conditions include anxiety depression, GERD, COPD. Patient has known CLL with a baseline count running around 50. Follow[address] by Dr[address] Faulkner. For at least over 2 weeks patient is noted to be increasingly short of breath. Has got a cough especially when he lies down. Does bring up some white phlegm. Denies any obvious fever and chills. Appetite is okay. The course of the year patient lost close to 30 pounds from 160 down to about 1:30 pounds. Admitted with acute COPD exacerbation. Started on nebulized bronchodilators and steroids. Patient does complain of a lesion in the roof of the mouth. That bleeds intermittently. Today-feeling much better. Oral intake is good. Breathing improved. Review of systems: Was done for constitutional, cardiovascular, GI, pulmonary. relevant finding as above Active Medications Acetaminophen (Acetaminophen Tab 500 Mg Tab) 1,000 mg PO Q6HR [facility] Last Admin: 09/25/20 18:23 Dose: 1,000 mg Documented by: Albuterol Sulfate (Albuterol Hfa Inhaler) 2 puff INHALATION RT-QID PRN PRN Reason: Shortness Of Breath Albuterol/Ipratropium (Ipratropium-Albuterol 3 Ml Neb) 3 ml INHALATION RT-QID [facility] Last Admin: 09/25/20 16:48 Dose: 3 ml Documented by: Bismuth Subsalicylate (Bismuth Subsalicylate 4,192 Mg/240 Ml Bottle) 262 mg PO Q6H PRN PRN Reason: GI Upset Last Admin: 09/24/20 19:37 Dose: 262 mg Documented by: Budesonide/Formoterol Fumarate (Symbicort 80-4.5 Mcg Inhaler) 2 puff INHALATION RT-BID [facility] Last Admin: 09/25/20 08:13 Dose: 2 puff Documented by: Calcium Carbonate/Glycine (Calcium Carbonate 500 Mg Chewable) 1,000 mg PO TID PRN PRN Reason: Heartburn Clonazepam (Clonazepam 0.5 Mg Tab) 0.5 mg PO BID PRN PRN Reason: Anxiety Cyclobenzaprine HCl (Cyclobenzaprine 10 Mg Tab) 10 mg PO HS [facility] Last Admin: 09/25/20 20:32 Dose: 10 mg Documented by: Ferrous Sulfate (Ferrous Sulfate 325 Mg Tab) 325 mg PO DAILY [facility] Last Admin: 09/25/20 09:18 Dose: 325 mg Documented by: Methylprednisolone Sodium Succinate (Methylprednisolone Sod Succi 40 Mg/Ml 1 Ml Vial) 40 mg IV Q12HR [facility] Last Admin: 09/25/20 20:31 Dose: 40 mg Documented by: Pantoprazole Sodium (Pantoprazole 40 Mg Tablet) 40 mg PO DAILY [facility] Last Admin: 09/25/20 09:19 Dose: 40 mg Documented by: Paroxetine HCl (Paroxetine 20 Mg Tab) 20 mg PO DAILY [facility] Last Admin: 09/25/20 09:19 Dose: 20 mg Documented by: Past medical history to include: Chronic lymphoid leukemia, COPD, anxiety, GERD, Social history: Patient smoked about a pack and half a day for close to 42 years stopped about 5 days ago. Lives alone. Employed for [employer] Family history: Reviewed, noncontributory to presentation Physical examination: VITAL SIGNS: 97.5, 88, 17, 117/71, 94% room air GENERAL: Sitting up, more comfortable today EYES: Pupils equal. Conjunctiva normal. HEENT: External appearance of nose and ears normal, linear superficial ulcer on the roof of the mouth posteriorly NECK: JVD not raised; masses not palpable. HEART: First and second heart sounds are normal; no edema. LUNGS: Respiratory rate normal, decreased breath sounds. ABDOMEN: Soft, nontender, liver spleen not palpable, no masses palpable. PSYCH: Alert and oriented x3; mood and affect normal. LYMPHATICS: [Lymph nodes palpable in the neck and submandibular area. INVESTIGATIONS, reviewed in the clinical context: White count 51 hemoglobin 11.3 platelets 505 lymphocytes 46.9 Pro-time 25.8 PTT 61.0 d-dimer 26.8 Potassium 4.5 creatinine 1.11 Coronavirus P/Cr-not detected EKG tracing personally reviewed by me-normal sinus rhythm Chest x-ray film personally reviewed by me-left pleural effusion CT chest angiogram for PE protocol-no PE. Mild to moderate emphysematous changes with left greater than right pleural effusion. Abnormal adenopathy Assessment: -Acute COPD exacerbation in an ex-smoker improving -Superficial ulcer on the roof of the mouth, possible apthhous -Left pleural effusion, cause unclear-awaiting diagnostic thoracentesis -Chronic lymphocytic leukemia -Abnormal clotting profile with abnormal pro time PTT-mixing study has been ordered along with lupus anticoagulant. -GERD -Anxiety depression not otherwise specified Plan: We'll consult ENT for the oral ulcer. Awaiting photosynthesis. Continue bronchodilator IV Solu-Medrol. Improving.
[2020-09-25] MEDS: CHLORHEXIDINE GLUCONATE 15 ML CUP MUCOUS MEM SCH (22:00)
[2020-09-26] MEDS: ACETAMINOPHEN TAB 500 MG TAB PO SCH ×5 (00:04→23:10)
[2020-09-26] MEDS: PANTOPRAZOLE 40 MG TABLET PO SCH (07:34)
[2020-09-26] MEDS: methylPREDNISolone SOD SUCCI 40 MG/ML 1 ML VIAL IV SCH ×2 (07:34→20:44)
[2020-09-26] MEDS: FERROUS SULFATE 325 MG TAB PO SCH (07:34)
[2020-09-26] MEDS: PARoxetine 20 MG TAB PO SCH (07:35)
[2020-09-26] MEDS: CHLORHEXIDINE GLUCONATE 15 ML CUP MUCOUS MEM SCH ×2 (07:35→20:44)
[2020-09-26] MEDS: SYMBICORT 80-4.5 MCG INHALER INHALATION SCH ×2 (09:14→19:49)
[2020-09-26] MEDS: IPRATROPIUM-ALBUTEROL 3 ML NEB INHALATION SCH ×4 (09:14→19:49)
[2020-09-26 09:26] LABS: INR 2.9 (<1.2); Prothrombin Time 28.4 sec (9.0-12.0)
[2020-09-26] MEDS ORDERED: PHYTONADIONE 5 MG in SODIUM CHLORIDE 0.9% 50 ML IVPB STA (11:39)
[2020-09-26] MEDS ORDERED: Kcentra PER PHARMACY 1 EACH MISC MISCELLANE PRN (11:55)
--- NOTE | 2020-09-26 13:59 | P.PN ---
Subjective Progress Note Date: 09/26/20 Principal diagnosis: dyspnea In f/u today pt denies MIRIAM, he is able to ambulate without too much SOB. He is tolerating oral intake, no other physical symptoms to report. Objective - Vital Signs Vital signs: Vital Signs Temp 97.6 F 09/26/20 07:48 Pulse 96 09/26/20 12:27 Resp 16 09/26/20 08:00 BP 105/66 09/26/20 07:48 Pulse Ox 98 09/26/20 09:14 Intake & Output 09/25/20 09/26/20 09/26/20 18:59 06:59 18:59 Intake Total 236 Balance 236 Intake: Oral 236 Other: Voiding Method Toilet # Voids 1 # Bowel Movements 1 - Constitutional General appearance: Present: cooperative, no acute distress, thin - EENT Eyes: Present: anicteric sclerae, EOMI - Respiratory Respiratory: bilateral: diminished (bases) - Cardiovascular Rhythm: regular Heart sounds: normal: S1, S2 Abnormal Heart Sounds: Absent: systolic murmur, diastolic murmur, rub, S3 Gallop, S4 Gallop, click, other - Peripheral edema leg Peripheral Edema: bilateral: None - Gastrointestinal General gastrointestinal: Present: normal bowel sounds, soft - Neurologic Neurologic: Present: CNII-XII intact - Musculoskeletal Musculoskeletal: Present: strength equal bilaterally - Psychiatric Psychiatric: Present: A&O x's 3, appropriate affect, intact judgment & insight - Labs CBC & Chem 7: 09/24/20 05:33 09/23/20 13:06 Labs: Abnormal Lab Results - Last 24 Hours (Table) 09/26/20 Range/Units 08:44 PT 28.4 H (9.0-12.0) sec INR 2.9 H (<1.2) Microbiology - Last 24 Hours (Table) 09/23/20 15:00 Blood Culture - Preliminary Blood No Growth after 48 hours 09/23/20 14:43 Blood Culture - Preliminary Blood No Growth after 48 hours Assessment and Plan (1) Pleural effusion Current Visit: Yes Status: Acute Priority: High Code(s): J90 - PLEURAL EFFUSION, NOT ELSEWHERE CLASSIFIED SNOMED Code(s): 78529158 (2) Thoracic lymphadenopathy Current Visit: Yes Status: Acute Priority: Medium Code(s): R59.0 - LOCALIZED ENLARGED LYMPH NODES SNOMED Code(s): 758416668 (3) Coagulopathy Current Visit: Yes Status: Acute Priority: High Code(s): D68.9 - COAGULATION DEFECT, UNSPECIFIED SNOMED Code(s): 71538895 (4) Chronic lymphocytic leukemia not having achieved remission Current Visit: Yes Status: Acute Priority: Medium Code(s): C91.10 - CHRONIC LYMPHOCYTIC LEUK OF B-CELL TYPE NOT ACHIEVE REMIS SNOMED Code(s): 01590075 Plan: Wanting to work up adenopathy. Ordered thoracentesis with flow cytometry on pleural fluid to rule out a progressive CLL. Pt has undiagnosed coagulopathy, pending lupus anticoagulant and mixing studies. If lupus anticoagulant positive then coags are artifactually elevated in vitro. Positive lupus anticoagulant ab is actually a pro coagulant in vivo so, thoracentesis can be performed without further intervention. If negative then, antibodies to clotting factors is the most likely cause for coagulopathy. Then the recommendation is for k-centra administration prior to procedure as there are more activated clotting factors in Kcentric. Case was discussed at length with PharmD. Since pt was not severely symptomatic we will await results of lab studies ordered. Thoracentesis is for diagnostic purposes as well as symptoms. Pending discussion with Pulmonary for comment on mediastinal lymphadenopathy- does it appeear pathologic vs reactive. Attests: I have seen and examined pt, developed impression and plan of care. Discussed with dictator. Agree with dictation, documented as a scribe. Time with Patient: Greater than 30
[2020-09-26 15:29] LABS: APTT 104 Sec(s) (<43); APTT 1:1 Mix 71 Sec(s) (<43); DRVVT 1:1 Mix 58 Sec(s) (<44); DRVVT Confirmation Negative (Negative); Dilute Russell Viper Venom 58 Sec(s) (<44); Hexagonal Phase Neutralization Positive (Negative)
--- NOTE | 2020-09-26 16:11 | P.PN ---
Subjective Progress Note Date: 09/26/20 Principal diagnosis: Dyspnea, small left-sided pleural effusion This is a very pleasant 60-year-old gentleman with a known history of chronic lymphocytic leukemia, currently under surveillance, on no treatment, follows with Dr. Chen, anxiety/depression, previous smoking history, marijuana use, COPD. He's been maintained on Advair, Spiriva, pro-air in the outpatient setting. He presented to the emergency room yesterday with complaints of increasing shortness of breath, cough and congestion that his been going on for possibly one month. He is also had some sharp anterior chest pain and chest wall pain. Abdominal discomfort as well. Chest x-ray revealed small left ple ural effusion with associated left basilar atelectasis/infiltrate. CT angiogram ruled out pulmonary embolism. There is [id number] emphysematous changes and multiple tiny left greater than right pleural effusions. There is also noted abnormal thoracic adenopathy suspicious for active neoplastic or leukemia progression given the patient's history. His baseline white count is around 50,000. He does have some lymph node enlargement in the submandibular area and possible splenomegaly accounting for his abdominal discomfort. White count 49.6. Hemoglobin 11.6. Platelet count 527. Lymphocytes 43.6. Monocytes 1.49. INR 3.2. D-dimer 26.85. Sodium 135. Potassium 4.5. Creatinine 1.11. Troponin negative. Coronavirus negative. He is seen today in consultation on the regular medical floor. He is currently sitting up at the bedside. Awake and alert in no acute distress. Maintaining good O2 saturations in the upper 90s on room air. He's been afebrile. Hemodynamically stable. Initiated on Symbicort and DuoNeb inhalations. The patient is seen today February or 2020 follow-up on the regular medical floor. He is awake and alert in no acute distress. Currently sitting up in a chair at the bedside. Maintaining O2 saturations in the 90s on room air. Blood culture reveals no growth to date. Remains on Symbicort, DuoNeb inhalations and IV Solu-Medrol. We easier today compared to yesterday. On 09/26/2020 patient seen in follow-up on the regular medical floor, is calm and comfortable, his pain management, he states his breathing is easier, does not seem to be any acute respiratory distress, he states at nighttime he still has some coughing episodes, but overall he is feeling better, room air pulse ox is 93%, his been afebrile, hemodynamically stable. His INR today is 2.9, and CT-guided left thoracentesis was postponed related to elevated INR, patient received 5 mg of vitamin K and KCentra. His coronavirus was negative, patient continues on bronchodilators, he is not on any antibiotics at this time. He remains on IV steroids. Objective - Vital Signs Vital signs: Vital Signs Temp 97.6 F 09/26/20 14:00 Pulse 114 H 09/26/20 14:00 Resp 16 09/26/20 14:00 BP 127/69 09/26/20 14:00 Pulse Ox 93 L 09/26/20 14:00 Intake & Output 09/25/20 09/26/20 09/26/20 18:59 06:59 18:59 Intake Total 472 Balance 472 Intake: Oral 472 Other: Voiding Method Toilet # Voids 1 # Bowel Movements 1 - Exam GENERAL EXAM: Alert, pleasant, 60-year-old white male, on room air, pulse ox of 93% comfortable in no apparent distress. HEAD: Normocephalic/atraumatic. EYES: Normal reaction of pupils, equal size. Conjunctiva pink, sclera white. NOSE: Clear with pink turbinates. THROAT: No erythema or exudates. NECK: No masses, no JVD, no thyroid enlargement, no adenopathy. CHEST: No chest wall deformity. Symmetrical expansion. LUNGS: Equal air entry with diminished breath sounds with bibasilar crackles CVS: Regular rate and rhythm, normal S1 and S2, no gallops, no murmurs, no rubs ABDOMEN: Soft, nontender. No hepatosplenomegaly, normal bowel sounds, no guarding or rigidity. EXTREMITIES: No clubbing, no edema, no cyanosis, 2+ pulses and upper and lower extremities. MUSCULOSKELETAL: Muscle strength and tone normal. SPINE: No scoliosis or deformity SKIN: No rashes CENTRAL NERVOUS SYSTEM: Alert and oriented -3. No focal deficits, tone is normal in all 4 extremities. PSYCHIATRIC: Alert and oriented -3. Appropriate affect. Intact judgment and insight. - Labs CBC & Chem 7: 09/24/20 05:33 09/23/20 13:06 Labs: Abnormal Lab Results - Last 24 Hours (Table) 09/23/20 09/26/20 Range/Units 22:20 08:44 PT 28.4 H (9.0-12.0) sec INR 2.9 H (<1.2) Lupus Anticoag aPTT 104 H (<43) Sec(s) Lupus Anticoag PTT Mix 71 H (<43) Sec(s) Dil Eric Viper Venom 58 H (<44) Sec(s) dRVVT 50:50 58 H (<44) Sec(s) Lupus Hexagonal Phase Positive A (Negative) Microbiology - Last 24 Hours (Table) 09/23/20 15:00 Blood Culture - Preliminary Blood No Growth after 48 hours 09/23/20 14:43 Blood Culture - Preliminary Blood No Growth after 48 hours Assessment and Plan Plan: Assessment: #1. Dyspnea, related to small bilateral pleural effusions left greater than right, CT-guided left-sided thoracentesis has been ordered however has been postponed related to increased INR, and this was done for diagnostic purposes #2. Acute exacerbation of COPD #3. Chest wall pain secondary to the above #4. Lymphadenopathy, splenomegaly secondary to chronic lymphocytic leukemia, not currently on any treatment #5. Chronic lymphocytic leukemia under surveillance, no treatment thus far #6. Coagulopathy #7. Former smoker #8. History of anxiety/depression #9. History of marijuana use Plan: Clinically patient is stable, he is feeling better, CT-guided left-sided thoracentesis was postponed related to increased INR. No fever or chills, continue with IV steroids, bronchodilators, blood cultures have shown no growth so far. Repeat INR in the morning. We'll continue to follow I performed a history & physical examination of the patient and discussed their management with my nurse practitioner, Deepa Busby. I reviewed the nurse practitioner's note and agree with the documented findings and plan of care. Lung sounds are positive for some bibasilar crackles. The findings and the impression was discussed with the patient. I attest to the documentation by the nurse practitioner. Time with Patient: Less than 30
[2020-09-26] MEDS: CYCLOBENZAPRINE 10 MG TAB PO SCH (20:44)
--- NOTE | 2020-09-26 20:45 | P.PN ---
Progress Note - Text Progress Note Date: 09/26/20 Chief Complaint: Short of breath History of presenting complaint: This is a pleasant 60-year-old patient of Dr. Renny Masters. Chronic stable medical conditions include anxiety depression, GERD, COPD. Patient has known CLL with a baseline count running around 50. Follows by Dr. Faulkner. For at least over 2 weeks patient is noted to be increasingly short of breath. Has got a cough especially when he lies down. Does bring up some white phlegm. Denies any obvious fever and chills. Appetite is okay. The course of the year patient lost close to 30 pounds from 160 down to about 1:30 pounds. Admitted with acute COPD exacerbation. Started on nebulized bronchodilators and steroids. Patient does complain of a lesion in the roof of the mouth. That bleeds intermittently. Today-breathing much improved. Because of elevated INR, thoracentesis postponed until tomorrow. Review of systems: Was done for constitutional, cardiovascular, GI, pulmonary. relevant finding as above Active Medications Acetaminophen (Acetaminophen Tab 500 Mg Tab) 1,000 mg PO Q6HR [facility] Last Admin: 09/26/20 18:06 Dose: 1,000 mg Documented by: Albuterol Sulfate (Albuterol Hfa Inhaler) 2 puff INHALATION RT-QID PRN PRN Reason: Shortness Of Breath Albuterol/Ipratropium (Ipratropium-Albuterol 3 Ml Neb) 3 ml INHALATION RT-QID [facility] Last Admin: 09/26/20 19:49 Dose: 3 ml Documented by: Bismuth Subsalicylate (Bismuth Subsalicylate 4,192 Mg/240 Ml Bottle) 262 mg PO Q6H PRN PRN Reason: GI Upset Last Admin: 09/24/20 19:37 Dose: 262 mg Documented by: Budesonide/Formoterol Fumarate (Symbicort 80-4.5 Mcg Inhaler) 2 puff INHALATION RT-BID [facility] Last Admin: 09/26/20 19:49 Dose: 2 puff Documented by: Calcium Carbonate/Glycine (Calcium Carbonate 500 Mg Chewable) 1,000 mg PO TID PRN PRN Reason: Heartburn Chlorhexidine Gluconate (Chlorhexidine Gluconate 15 Ml Cup) 15 ml MUCOUS MEM BID [facility] Last Admin: 09/26/20 07:35 Dose: 15 ml Documented by: Clonazepam (Clonazepam 0.5 Mg Tab) 0.5 mg PO BID PRN PRN Reason: Anxiety Cyclobenzaprine HCl (Cyclobenzaprine 10 Mg Tab) 10 mg PO HS [facility] Last Admin: 09/25/20 20:32 Dose: 10 mg Documented by: Ferrous Sulfate (Ferrous Sulfate 325 Mg Tab) 325 mg PO DAILY [facility] Last Admin: 09/26/20 07:34 Dose: 325 mg Documented by: Phytonadione 5 mg/ Sodium (Chloride) 50.5 mls @ 100 mls/hr IVPB ONCE ONE Stop: 09/26/20 21:30 Methylprednisolone Sodium Succinate (Methylprednisolone Sod Succi 40 Mg/Ml 1 Ml Vial) 40 mg IV Q12HR [facility] Last Admin: 09/26/20 07:34 Dose: 40 mg Documented by: Pantoprazole Sodium (Pantoprazole 40 Mg Tablet) 40 mg PO DAILY [facility] Last Admin: 09/26/20 07:34 Dose: 40 mg Documented by: Paroxetine HCl (Paroxetine 20 Mg Tab) 20 mg PO DAILY [facility] Last Admin: 09/26/20 07:35 Dose: 20 mg Documented by: Past medical history to include: Chronic lymphoid leukemia, COPD, anxiety, GERD, Social history: Patient smoked about a pack and half a day for close to 42 years stopped about 5 days ago. Lives alone. Employed for [employer] Family history: Reviewed, noncontributory to presentation Physical examination: VITAL SIGNS: 97.6, 107, 16, and 27/69, 93% room air GENERAL: Sitting up, comfortable EYES: Pupils equal. Conjunctiva normal. HEENT: External appearance of nose and ears normal, linear superficial ulcer on the roof of the mouth in the middle NECK: JVD not raised; masses not palpable. HEART: First and second heart sounds are normal; no edema. LUNGS: Respiratory rate normal, decreased breath sounds. ABDOMEN: Soft, nontender, liver spleen not palpable, no masses palpable. PSYCH: Alert and oriented x3; mood and affect normal. LYMPHATICS: [Lymph nodes palpable in the neck and submandibular area. INVESTIGATIONS, reviewed in the clinical context: September 26: INR 2.9 White count 51 hemoglobin 11.3 platelets 505 lymphocytes 46.9 Pro-time 25.8 PTT 61.0 d-dimer 26.8 Potassium 4.5 creatinine 1.11 Coronavirus P/Cr-not detected EKG tracing personally reviewed by me-normal sinus rhythm Chest x-ray film personally reviewed by me-left pleural effusion CT chest angiogram for PE protocol-no PE. Mild to moderate emphysematous changes with left greater than right pleural effusion. Abnormal adenopathy Assessment: -Acute COPD exacerbation in an ex-smoker improving -Superficial ulcer on the roof of the mouth, possible apthhous -Left pleural effusion, cause unclear-awaiting diagnostic thoracentesis -Chronic lymphocytic leukemia -Abnormal clotting profile with abnormal pro time PTT-mixing study has been ordered along with lupus anticoagulant. -GERD -Anxiety depression not otherwise specified Plan: White count admin K has been ordered. Repeat INR in the morning. Patient getting chlorhexidine mouthwash for the aphthous ulcer. Discussed with the patient. Clotting abnormalities being followed by Dr. Azar
[2020-09-26] MEDS ORDERED: PHYTONADIONE 5 MG in SODIUM CHLORIDE 0.9% 50 ML IVPB ONE (21:00)
[2020-09-27] MEDS: ACETAMINOPHEN TAB 500 MG TAB PO SCH ×2 (05:32→12:19)
[2020-09-27 06:34] LABS: INR 2.3 (<1.2); Prothrombin Time 22.4 sec (9.0-12.0)
[2020-09-27] MEDS: FERROUS SULFATE 325 MG TAB PO SCH (08:40)
[2020-09-27] MEDS: methylPREDNISolone SOD SUCCI 40 MG/ML 1 ML VIAL IV SCH (08:40)
[2020-09-27] MEDS: PANTOPRAZOLE 40 MG TABLET PO SCH (08:40)
[2020-09-27] MEDS: CHLORHEXIDINE GLUCONATE 15 ML CUP MUCOUS MEM SCH (08:41)
[2020-09-27] MEDS: PARoxetine 20 MG TAB PO SCH (08:41)
[2020-09-27] MEDS: SYMBICORT 80-4.5 MCG INHALER INHALATION SCH (09:06)
[2020-09-27] MEDS: IPRATROPIUM-ALBUTEROL 3 ML NEB INHALATION SCH ×2 (09:06→13:23)
--- NOTE | 2020-09-27 10:45 | P.PN ---
Subjective Progress Note Date: 09/27/20 Principal diagnosis: dyspnea In f/u today pt denies MIRIAM, he is able to ambulate without too much SOB. He is tolerating oral intake, no other physical symptoms to report. Objective - Vital Signs Vital signs: Vital Signs Temp 97.6 F 09/27/20 07:51 Pulse 92 09/27/20 09:18 Resp 16 09/27/20 08:00 BP 138/67 09/27/20 07:51 Pulse Ox 92 L 09/27/20 07:51 Intake & Output 09/26/20 09/27/20 09/27/20 18:59 06:59 18:59 Intake Total 472 100 Balance 472 100 Intake: Intake, IV Titration 100 Amount Phytonadione 5 mg In 100 Sodium Chloride 0.9% 50 ml @ 100 mls/hr IVPB ONCE ONE Rx#:[id number] Oral 472 Other: Voiding Method Toilet # Voids 3 4 - Constitutional General appearance: Present: average body habitus, cooperative, no acute distress - EENT Eyes: Present: anicteric sclerae, EOMI ENT: Present: hearing grossly normal - Respiratory Respiratory: bilateral: dullness - Cardiovascular Heart sounds: normal: S1, S2 Abnormal Heart Sounds: Absent: systolic murmur, diastolic murmur, rub, S3 Gallop, S4 Gallop, click, other - Gastrointestinal General gastrointestinal: Present: normal bowel sounds, soft - Neurologic Neurologic: Present: CNII-XII intact - Musculoskeletal Musculoskeletal: Present: strength equal bilaterally - Psychiatric Psychiatric: Present: A&O x's 3, appropriate affect, intact judgment & insight - Labs CBC & Chem 7: 09/24/20 05:33 09/23/20 13:06 Labs: Abnormal Lab Results - Last 24 Hours (Table) 09/23/20 09/27/20 Range/Units 22:20 05:54 PT 22.4 H (9.0-12.0) sec INR 2.3 H (<1.2) Lupus Anticoag aPTT 104 H (<43) Sec(s) Lupus Anticoag PTT Mix 71 H (<43) Sec(s) Dil Eric Viper Venom 58 H (<44) Sec(s) dRVVT 50:50 58 H (<44) Sec(s) Lupus Hexagonal Phase Positive A (Negative) Microbiology - Last 24 Hours (Table) 09/23/20 15:00 Blood Culture - Preliminary Blood No Growth after 72 hours 09/23/20 14:43 Blood Culture - Preliminary Blood No Growth after 72 hours Assessment and Plan (1) Pleural effusion Current Visit: Yes Status: Acute Priority: High Code(s): J90 - PLEURAL EFFUSION, NOT ELSEWHERE CLASSIFIED SNOMED Code(s): 66904726 (2) Thoracic lymphadenopathy Current Visit: Yes Status: Acute Priority: Medium Code(s): R59.0 - LOCALIZED ENLARGED LYMPH NODES SNOMED Code(s): 249072876 (3) Coagulopathy Current Visit: Yes Status: Acute Priority: High Code(s): D68.9 - COAGULATION DEFECT, UNSPECIFIED SNOMED Code(s): 74470262 (4) Chronic lymphocytic leukemia not having achieved remission Current Visit: Yes Status: Acute Priority: Medium Code(s): C91.10 - CHRONIC LYMPHOCYTIC LEUK OF B-CELL TYPE NOT ACHIEVE REMIS SNOMED Code(s): 88472288 Plan: Lupus anticoagulant positive, lab results reviewed. Dr. Azar discussed the case with Interventional Radiologist. Proceed with thoracentesis, no additional vitamin K needed at this time. Pending flow cytometry evaluation of pleural fluid. Autoimmune disease workup ordered due to the positive lupus anticoagulant. Positive lupus anticoagulant, aspirin 325 mg daily to be initiated post procedure. Doctor attests: I performed a history and physical examination of this patient, developed impression and plan of care. Discussed with dictator. I agree with dictators note, documented as a scribe.
[2020-09-27 10:50] VITALS: RESP 18
[2020-09-27 14:26] VITALS: BP 125/66; PULSE 88; TEMP 97.7
--- NOTE | 2020-09-27 14:48 | P.PN ---
Subjective Progress Note Date: 09/27/20 Principal diagnosis: Dyspnea, small left-sided pleural effusion This is a very pleasant 60-year-old gentleman with a known history of chronic lymphocytic leukemia, currently under surveillance, on no treatment, follows with Dr. Chen, anxiety/depression, previous smoking history, marijuana use, COPD. He's been maintained on Advair, Spiriva, pro-air in the outpatient setting. He presented to the emergency room yesterday with complaints of increasing shortness of breath, cough and congestion that his been going on for possibly one month. He is also had some sharp anterior chest pain and chest wall pain. Abdominal discomfort as well. Chest x-ray revealed small left ple ural effusion with associated left basilar atelectasis/infiltrate. CT angiogram ruled out pulmonary embolism. There is [id number] emphysematous changes and multiple tiny left greater than right pleural effusions. There is also noted abnormal thoracic adenopathy suspicious for active neoplastic or leukemia progression given the patient's history. His baseline white count is around 50,000. He does have some lymph node enlargement in the submandibular area and possible splenomegaly accounting for his abdominal discomfort. White count 49.6. Hemoglobin 11.6. Platelet count 527. Lymphocytes 43.6. Monocytes 1.49. INR 3.2. D-dimer 26.85. Sodium 135. Potassium 4.5. Creatinine 1.11. Troponin negative. Coronavirus negative. He is seen today in consultation on the regular medical floor. He is currently sitting up at the bedside. Awake and alert in no acute distress. Maintaining good O2 saturations in the upper 90s on room air. He's been afebrile. Hemodynamically stable. Initiated on Symbicort and DuoNeb inhalations. The patient is seen today February or 2020 follow-up on the regular medical floor. He is awake and alert in no acute distress. Currently sitting up in a chair at the bedside. Maintaining O2 saturations in the 90s on room air. Blood culture reveals no growth to date. Remains on Symbicort, DuoNeb inhalations and IV Solu-Medrol. We easier today compared to yesterday. On 09/26/2020 patient seen in follow-up on the regular medical floor, is calm and comfortable, his pain management, he states his breathing is easier, does not seem to be any acute respiratory distress, he states at nighttime he still has some coughing episodes, but overall he is feeling better, room air pulse ox is 93%, his been afebrile, hemodynamically stable. His INR today is 2.9, and CT-guided left thoracentesis was postponed related to elevated INR, patient received 5 mg of vitamin K and KCentra. His coronavirus was negative, patient continues on bronchodilators, he is not on any antibiotics at this time. He remains on IV steroids. On 09/27/2020 she seen in follow-up on medical floor, he is calm and comfortable, in no acute distress, his INR is down to 2.3, patient went down for his ultrasound-guided thoracentesis however the fluid pocket was very small and interventional radiologist was unable to get any fluid for analysis. Clinically his been stable, no complaints of chest pain, no significant cough or congestion, lung sounds without significant wheezing. Vital signs have been stable overnight, no fever or chills, he remains on bronchodilators, and IV steroids, he is feeling better, he wants to go home today. Blood cultures without any growth, and receive any empiric antibiotics however there is no clear evidence of infection either. Procalcitonin level came back low at 0.04. Objective - Vital Signs Vital signs: Vital Signs Temp 97.7 F 09/27/20 14:00 Pulse 88 09/27/20 14:00 Resp 18 09/27/20 14:00 BP 125/66 09/27/20 14:00 Pulse Ox 97 09/27/20 14:00 Intake & Output 09/26/20 09/27/20 09/27/20 18:59 06:59 18:59 Intake Total 472 100 Balance 472 100 Intake: Intake, IV Titration 100 Amount Phytonadione 5 mg In 100 Sodium Chloride 0.9% 50 ml @ 100 mls/hr IVPB ONCE ONE Rx#:[id number] Oral 472 Other: Voiding Method Toilet # Voids 3 4 - Exam GENERAL EXAM: Alert, pleasant, 60-year-old white male, on room air, pulse ox of 97% comfortable in no apparent distress. HEAD: Normocephalic/atraumatic. EYES: Normal reaction of pupils, equal size. Conjunctiva pink, sclera white. NOSE: Clear with pink turbinates. THROAT: No erythema or exudates. NECK: No masses, no JVD, no thyroid enlargement, no adenopathy. CHEST: No chest wall deformity. Symmetrical expansion. LUNGS: Equal air entry with diminished breath sounds with bibasilar crackles CVS: Regular rate and rhythm, normal S1 and S2, no gallops, no murmurs, no rubs ABDOMEN: Soft, nontender. No hepatosplenomegaly, normal bowel sounds, no guarding or rigidity. EXTREMITIES: No clubbing, no edema, no cyanosis, 2+ pulses and upper and lower extremities. MUSCULOSKELETAL: Muscle strength and tone normal. SPINE: No scoliosis or deformity SKIN: No rashes CENTRAL NERVOUS SYSTEM: Alert and oriented -3. No focal deficits, tone is normal in all 4 extremities. PSYCHIATRIC: Alert and oriented -3. Appropriate affect. Intact judgment and insight. - Labs CBC & Chem 7: 09/24/20 05:33 09/23/20 13:06 Labs: Abnormal Lab Results - Last 24 Hours (Table) 09/23/20 09/27/20 Range/Units 22:20 05:54 PT 22.4 H (9.0-12.0) sec INR 2.3 H (<1.2) Lupus Anticoag aPTT 104 H (<43) Sec(s) Lupus Anticoag PTT Mix 71 H (<43) Sec(s) Dil Eric Viper Venom 58 H (<44) Sec(s) dRVVT 50:50 58 H (<44) Sec(s) Lupus Hexagonal Phase Positive A (Negative) Microbiology - Last 24 Hours (Table) 09/23/20 15:00 Blood Culture - Preliminary Blood No Growth after 72 hours 09/23/20 14:43 Blood Culture - Preliminary Blood No Growth after 72 hours Assessment and Plan Plan: Assessment: #1. Dyspnea, related to small bilateral pleural effusions left greater than right, CT-guided left-sided thoracentesis has been ordered however has been postponed related to increased INR, and this was done for diagnostic purposes. Today on 09/27/2020 was not enough fluid for successful thoracentesis and the procedure was unsuccessful, however clinically patient remains stable #2. Acute exacerbation of COPD #3. Chest wall pain secondary to the above #4. Lymphadenopathy, splenomegaly secondary to chronic lymphocytic leukemia, not currently on any treatment #5. Chronic lymphocytic leukemia under surveillance, no treatment thus far #6. Coagulopathy #7. Former smoker #8. History of anxiety/depression #9. History of marijuana use Plan: The interventional radiology was unable to get any fluid from the left pleural effusion related to its very tiny size, and the risk of pneumothorax. His been stable overnight, no clear evidence of infection, poor calcitonin level is low at 0.04, no fever or chills, no worsening dyspnea, from pulmonary perspective he came to consider for discharge home today, he will need outpatient follow-up with Dr. Aguilar in the office in 7-10 days. I performed a history & physical examination of the patient and discussed their management with my nurse practitioner, Deepa Busby. I reviewed the nurse practitioner's note and agree with the documented findings and plan of care. Lung sounds are positive for some bibasilar crackles. The findings and the impression was discussed with the patient. I attest to the documentation by the nurse practitioner. Time with Patient: Less than 30
--- NOTE | 2020-09-27 16:00 | US ---
Discontinued thoracentesis HISTORY: Pleural effusion left correlation CT scan 09/23/2020 Only minimal effusion was identified on posterior left ultrasound. Exam is discontinued in discussion with the patient. impression: Discontinued exam due to minimal fluid
[2020-09-27 18:01] LABS: Cyclic Citrull Pep IgG Unit 7.6 U/mL; Cyclic Citrullinated Pep IgG POSITIVE (NEGATIVE); DNA Double-Stranded NEGATIVE (NEGATIVE)
--- NOTE | 2020-09-27 22:11 | P.DS ---
Providers Date of admission: 09/23/20 15:25 Expected date of discharge: 09/27/20 Attending physician: Gregor Singer Consults: 09/23/20 15:25 Consult Physician Urgent Consulting Provider: Ector Florez Consult Reason/Comments: Dyspnea Do you want consulting provider notified?: Yes Consult Physician Urgent Consulting Provider: Lance Azar Consult Reason/Comments: Leukemia Do you want consulting provider notified?: Yes 09/25/20 20:39 Consult Physician Routine Consulting Provider: Nj Ordaz Consult Reason/Comments: Mouth roof linear ulcer Do you want consulting provider notified?: Yes Primary care physician: Mikhail Masters [facility] Course: Chief Complaint: Short of breath History of presenting complaint: This is a pleasant 60-year-old patient of Dr. Renny Masters. Chronic stable medical conditions include anxiety depression, GERD, COPD. Patient has known CLL with a baseline count running around 50. Follows by Dr. Faulkner. For at least over 2 weeks patient is noted to be increasingly short of breath. Has got a cough especially when he lies down. Does bring up some white phlegm. Denies any obvious fever and chills. Appetite is okay. The course of the year patient lost close to 30 pounds from 160 down to about 1:30 pounds. Admitted with acute COPD exacerbation. Started on nebulized bronchodilators and steroids. Patient does complain of a lesion in the roof of the mouth. That bleeds intermittently. Today-thoracentesis was attempted today. It does become a very small amount. Unsuccessful. Patient is really doing well from a breathing standpoint. Chlorhexidine mouthwash is helping ulcer much improved. Continue the same. Patient follow-up with his oncologist. Discussion and discharge planning more than 35 minutes Consultation: Dr. Azar from oncology Dr. Caroline Florez from pulmonary. Past medical history to include: Chronic lymphoid leukemia, COPD, anxiety, GERD, Social history: Patient smoked about a pack and half a day for close to 42 years stopped about 5 days ago. Lives alone. Employed for [employer] Family history: Reviewed, noncontributory to presentation Physical examination: VITAL SIGNS: 97.7, 88, 18, 1 25 x 66, 97% room air GENERAL: Sitting up, comfortable EYES: Pupils equal. Conjunctiva normal. HEENT: External appearance of nose and ears normal, linear superficial ulcer on the roof of the mouth in the middle NECK: JVD not raised; masses not palpable. HEART: First and second heart sounds are normal; no edema. LUNGS: Respiratory rate normal, decreased breath sounds. ABDOMEN: Soft, nontender, liver spleen not palpable, no masses palpable. PSYCH: Alert and oriented x3; mood and affect normal. LYMPHATICS: [Lymph nodes palpable in the neck and submandibular area. INVESTIGATIONS, reviewed in the clinical context: September 26: INR 2.9 White count 51 hemoglobin 11.3 platelets 505 lymphocytes 46.9 Pro-time 25.8 PTT 61.0 d-dimer 26.8 Potassium 4.5 creatinine 1.11 Coronavirus P/Cr-not detected EKG tracing personally reviewed by me-normal sinus rhythm Chest x-ray film personally reviewed by me-left pleural effusion CT chest angiogram for PE protocol-no PE. Mild to moderate emphysematous changes with left greater than right pleural effusion. Abnormal adenopathy Assessment: -Acute COPD exacerbation in an ex-smoker -Superficial ulcer on the roof of the mouth, possible apthhous, responded well to chlorhexidine mouthwash -Left pleural effusionsmall, cause unclear-2 small 4 thoracentesis -Chronic lymphocytic leukemia -Abnormal clotting profile with abnormal pro time PTT-mixing study has been ordered along with lupus anticoagulant. -GERD -Anxiety depression not otherwise specified disposition: Home Patient Condition at Discharge: Stable Plan - Discharge Summary New Discharge Prescriptions: New Aspirin 325 mg PO DAILY #30 tab Chlorhexidine Gluconate [Peridex] 15 ml MUCOUS MEM BID #1 ml Continue Calcium Carbonate [Tums] 1,000 mg PO TID PRN PRN Reason: Heartburn clonazePAM [KlonoPIN] 0.5 mg PO BID PRN PRN Reason: Anxiety Tiotropium Garrett [Spiriva] 1 cap INHALATION RT-DAILY@1200 PARoxetine [Paxil] 20 mg PO DAILY Albuterol Sulfate [Proair Hfa] 2 puff INHALATION RT-QID PRN PRN Reason: Shortness Of Breath Omeprazole 20 mg PO DAILY Fluticasone/Salmeterol [Advair 250-50 Diskus] 1 puff INHALATION RT-BID Ferrous Sulfate [Iron (65 MG Elemental)] 325 mg PO DAILY Cyclobenzaprine [Flexeril] 10 mg PO HS Bismuth Subsalicylate [Pepto-Bismol] 262 mg PO Q6H PRN PRN Reason: Gi Upset Discontinued Ibuprofen [Motrin] 600 mg PO Q8H PRN PRN Reason: Pain Discharge Medication List Albuterol Sulfate [Proair Hfa] 2 puff INHALATION RT-QID PRN 09/23/20 [History] Bismuth Subsalicylate [Pepto-Bismol] 262 mg PO Q6H PRN 09/23/20 [History] Calcium Carbonate [Tums] 1,000 mg PO TID PRN 09/23/20 [History] Cyclobenzaprine [Flexeril] 10 mg PO HS 09/23/20 [History] Ferrous Sulfate [Iron (65 MG Elemental)] 325 mg PO DAILY 09/23/20 [History] Fluticasone/Salmeterol [Advair 250-50 Diskus] 1 puff INHALATION RT-BID 09/23/20 [History] Omeprazole 20 mg PO DAILY 09/23/20 [History] PARoxetine [Paxil] 20 mg PO DAILY 09/23/20 [History] Tiotropium Garrett [Spiriva] 1 cap INHALATION RT-DAILY@1200 09/23/20 [History] clonazePAM [KlonoPIN] 0.5 mg PO BID PRN 09/23/20 [History] Aspirin 325 mg PO DAILY #30 tab 09/27/20 [Rx] Chlorhexidine Gluconate [Peridex] 15 ml MUCOUS MEM BID #1 ml 09/27/20 [Rx] Follow up Appointment(s)/Referral(s): Ector Florez MD [STAFF PHYSICIAN] - 10/21/20 9:15 am Kemi Zapien ANPBC [Nurse Practitioner] - 10/05/20 10:30 am Debby Cervantes FNPBC [REFERRING] - 09/30/20 9:30 am Kevon Park MD [STAFF PHYSICIAN] - 1 Week (Office closed at time of discharge Please call to set up an appointment to be seen If they do not take your insurance please speak with your primary at your appointment on the to find an ENT that will accept your insurance) Patient Instructions/Handouts: Pleural Effusion (DC), Chronic Lymphocytic Leukemia (DC)
[2020-09-30 12:33] LABS: ANA Pattern Peripheral (Rim)
== END 2020-09-27 15:30 | disposition home or self-care (01) | DRG 191 ==
LOC: EC 12:19 → 5NMEDONC 15:25
PROVIDERS: ADMIT Hospitalist; ATTEND Hospitalist
PROC: 0WJB3ZZ Inspection of Left Pleural Cavity, Percutaneous Approach (ICD-10-PCS; principal; 2020-09-27)
DX: J44.1 Chronic obstructive pulmonary disease with (acute) exacerbation (principal); J90 Pleural effusion, not elsewhere classified; J98.11 Atelectasis; D68.9 Coagulation defect, unspecified; C91.10 Chronic lymphocytic leukemia of B-cell type not having achieved remission; D64.9 Anemia, unspecified; F41.8 Other specified anxiety disorders; K21.9 Gastro-esophageal reflux disease without esophagitis; F32.9 Major depressive disorder, single episode, unspecified; Z20.822 Contact with and (suspected) exposure to COVID-19; Z60.2 Problems related to living alone; Z53.09 Procedure and treatment not carried out because of other contraindication; Z90.49 Acquired absence of other specified parts of digestive tract; Z88.0 Allergy status to penicillin
CPT/HCPCS: 36415; 71046; 71275; 76604; 80053; 82150; 82728; 83010; 83540; 83550; 83605; 83690; 83735; 84145; 84484; 85025; 85045; 85379; 85384; 85598; 85610; 85613; 85730; 85732; 86038; 86039; 86200; 86225; 86431; 87040; 87635; 93005; 94640; 94760; 96361; 96374; 99285

== ENCOUNTER 2020-10-22 16:48 | Inpatient (IN) | payer OTHER ==
[2020-10-22] MEDS ORDERED: SODIUM CHLORIDE 0.9% 1,000 ML IV STA ×2 (16:56)
[2020-10-22] MEDS ORDERED: methylPREDNISolone SOD SUCCI 125 MG/2 ML VIAL IV STA (16:56)
--- NOTE | 2020-10-22 17:07 | ED ---
SOB HPI - General Chief Complaint: Shortness of Breath Stated Complaint: SOB/Diarrhea Time Seen by Provider: 10/22/20 16:48 Source: patient, EMS, RN notes reviewed, old records reviewed Mode of arrival: EMS Limitations: no limitations - History of Present Illness Initial Comments: this is a 60-year-old male history of emphysema as well as leukemia that was diagnosed recently also history of a pleural effusion who presents by EMS with complaints of shortness of breath exertional dyspnea and cough going on for at least a day or so. He states was refractory to his home medication. He denies any overt fevers chills or sweats he states he does feel very dehydrated however. He does feel weak. Other complaints at this time no other modifying factors he denies being a smoker at this time that he does have a history thereof. MD Complaint: shortness of breath, cough - Related Data Home Medications Medication Instructions Recorded Confirmed Albuterol Sulfate [Proair Hfa] 2 puff INHALATION RT-QID PRN 09/23/20 10/22/20 Bismuth Subsalicylate 262 mg PO Q6H PRN 09/23/20 10/22/20 [Pepto-Bismol] Calcium Carbonate [Tums] 1,000 mg PO TID PRN 09/23/20 10/22/20 Cyclobenzaprine [Flexeril] 10 mg PO HS 09/23/20 10/22/20 Ferrous Sulfate [Iron (65 MG 325 mg PO DAILY 09/23/20 10/22/20 Elemental)] Fluticasone/Salmeterol [Advair 1 puff INHALATION RT-BID 09/23/20 10/22/20 250-50 Diskus] Omeprazole 20 mg PO DAILY 09/23/20 10/22/20 PARoxetine [Paxil] 20 mg PO DAILY 09/23/20 10/22/20 Tiotropium [place] [Spiriva] 1 cap INHALATION RT-DAILY@1200 09/23/20 10/22/20 clonazePAM [KlonoPIN] 0.5 mg PO BID PRN 09/23/20 10/22/20 Previous Rx's Medication Instructions Recorded Aspirin 325 mg PO DAILY #30 tab 09/27/20 Chlorhexidine Gluconate [Peridex] 15 ml MUCOUS MEM BID #1 ml 09/27/20 Allergies Allergy/AdvReac Type Severity Reaction Status Date / Time Penicillins Allergy Unknown Verified 09/23/20 15:35 Childhood Review of Systems ROS Statement: Those systems with pertinent positive or pertinent negative responses have been documented in the HPI. ROS Other: All systems not noted in ROS Statement are negative. Past Medical History Past Medical History: Cancer Additional Past Medical History / Comment(s): CCL leukemia, emphysema, plueral effusion 09/23/2020 History of Any Multi-Drug Resistant Organisms: None Reported Past Surgical History: Appendectomy Past Psychological History: Anxiety, Depression Smoking Status: Former smoker Past Alcohol Use History: None Reported Past Drug Use History: Marijuana General Exam - General Exam Comments Initial Comments: this is a well-developed asthenic appearing male who is awake alert oriented 3 Limitations: no limitations General appearance: alert, in no apparent distress Head exam: Present: atraumatic, normocephalic, normal inspection Eye exam: Present: normal appearance, PERRL, EOMI. Absent: scleral icterus, conjunctival injection, periorbital swelling ENT exam: Present: mucous membranes dry, mucous membranes moist, other ( From his dentition.) Neck exam: Present: normal inspection. Absent: tenderness, meningismus, lymphadenopathy Respiratory exam: Present: wheezes, decreased breath sounds. Absent: resp iratory distress, rales, rhonchi, stridor Cardiovascular Exam: Present: regular rate, normal rhythm, normal heart sounds. Absent: systolic murmur, diastolic murmur, rubs, gallop, clicks GI/Abdominal exam: Present: soft, normal bowel sounds. Absent: distended, tenderness, guarding, rebound, rigid Extremities exam: Present: normal inspection, full ROM, normal capillary refill. Absent: tenderness, pedal edema, joint swelling, calf tenderness Back exam: Present: normal inspection Neurological exam: Present: alert, oriented X3, CN II-XII intact Psychiatric exam: Present: normal affect, normal mood Skin exam: Present: warm, dry, intact, normal color. Absent: rash Course Vital Signs 10/22/20 10/22/20 10/22/20 16:49 17:37 17:47 Temperature 98.9 F Pulse Rate 84 87 89 Respiratory 20 Rate Blood Pressure 96/72 O2 Sat by Pulse 98 Oximetry 10/22/20 18:27 Temperature Pulse Rate 92 Respiratory 18 Rate Blood Pressure 98/61 O2 Sat by Pulse 96 Oximetry Medical Decision Making - Medical Decision Making patient did get treatment in the emergency department with minimal relief thus far. The presentation is consistent with a COPD exacerbation. He does have a history of leukemia as noted. I did discuss the case with him as well as Dr. Singer the patient will be admitted also consultation by pulmonary medicine. - Lab Data Result diagrams: 10/22/20 17:07 10/22/20 17:07 Lab Results 10/22/20 10/22/20 10/22/20 Range/Units 17:07 17:07 17:07 WBC 35.0 H (3.8-10.6) k/uL RBC 4.57 (4.30-5.90) m/uL Hgb 11.7 L (13.0-17.5) gm/dL Hct 35.6 L (39.0-53.0) % MCV 78.0 L (80.0-100.0) fL MCH 25.7 (25.0-35.0) pg MCHC 32.9 (31.0-37.0) g/dL RDW 19.3 H (11.5-15.5) % Plt Count 303 (150-450) k/uL MPV 6.8 Neutrophils % (Manual) 6 % Band Neuts % (Manual) 1 % Lymphocytes % (Manual) 94 % Neutrophils # (Manual) 2.40 (1.3-7.7) k/uL Lymphocytes # (Manual) 32.90 H (1.0-4.8) k/uL Nucleated RBCs 0 (0-0) /100 WBC Manual Slide Review Performed Poikilocytosis Slight Anisocytosis Slight Microcytosis Slight PT 26.0 H (9.0-12.0) sec INR 2.7 H (<1.2) APTT 61.5 H (22.0-30.0) sec Sodium 130 L (137-145) mmol/L Potassium 4.6 (3.5-5.1) mmol/L Chloride 100 (98-107) mmol/L Carbon Dioxide 19 L (22-30) mmol/L Anion Gap 11 mmol/L BUN 30 H (9-20) mg/dL Creatinine 1.22 (0.66-1.25) mg/dL Est GFR (CKD-EPI)AfAm 73 (>60 ml/min/1.73 sqM) Est GFR (CKD-EPI)NonAf 63 (>60 ml/min/1.73 sqM) Glucose 92 (74-99) mg/dL Plasma Lactic Acid Justin (0.7-2.0) mmol/L Calcium 8.9 (8.4-10.2) mg/dL Magnesium 2.3 (1.6-2.3) mg/dL Total Bilirubin 1.2 (0.2-1.3) mg/dL AST 49 (17-59) U/L ALT 15 (4-49) U/L Alkaline Phosphatase 99 (38-126) U/L Creatine Kinase 43 L (55-170) U/L Troponin I (0.000-0.034) ng/mL NT-Pro-B Natriuret Pep pg/mL Total Protein 7.0 (6.3-8.2) g/dL Albumin 3.7 (3.5-5.0) g/dL Coronavirus (PCR) (Not Detectd) 10/22/20 10/22/20 10/22/20 Range/Units 17:07 17:07 17:07 WBC (3.8-10.6) k/uL RBC (4.30-5.90) m/uL Hgb (13.0-17.5) gm/dL Hct (39.0-53.0) % MCV (80.0-100.0) fL MCH (25.0-35.0) pg MCHC (31.0-37.0) g/dL RDW (11.5-15.5) % Plt Count (150-450) k/uL MPV Neutrophils % (Manual) % Band Neuts % (Manual) % Lymphocytes % (Manual) % Neutrophils # (Manual) (1.3-7.7) k/uL Lymphocytes # (Manual) (1.0-4.8) k/uL Nucleated RBCs (0-0) /100 WBC Manual Slide Review Poikilocytosis Anisocytosis Microcytosis PT (9.0-12.0) sec INR (<1.2) APTT (22.0-30.0) sec Sodium (137-145) mmol/L Potassium (3.5-5.1) mmol/L Chloride (98-107) mmol/L Carbon Dioxide (22-30) mmol/L Anion Gap mmol/L BUN (9-20) mg/dL Creatinine (0.66-1.25) mg/dL Est GFR (CKD-EPI)AfAm (>60 ml/min/1.73 sqM) Est GFR (CKD-EPI)NonAf (>60 ml/min/1.73 sqM) Glucose (74-99) mg/dL Plasma Lactic Acid Justin 1.3 (0.7-2.0) mmol/L Calcium (8.4-10.2) mg/dL Magnesium (1.6-2.3) mg/dL Total Bilirubin (0.2-1.3) mg/dL AST (17-59) U/L ALT (4-49) U/L Alkaline Phosphatase (38-126) U/L Creatine Kinase (55-170) U/L Troponin I <0.012 (0.000-0.034) ng/mL NT-Pro-B Natriuret Pep 35 pg/mL Total Protein (6.3-8.2) g/dL Albumin (3.5-5.0) g/dL Coronavirus (PCR) (Not Detectd) 10/22/20 Range/Units Unknown WBC (3.8-10.6) k/uL RBC (4.30-5.90) m/uL Hgb (13.0-17.5) gm/dL Hct (39.0-53.0) % MCV (80.0-100.0) fL MCH (25.0-35.0) pg MCHC (31.0-37.0) g/dL RDW (11.5-15.5) % Plt Count (150-450) k/uL MPV Neutrophils % (Manual) % Band Neuts % (Manual) % Lymphocytes % (Manual) % Neutrophils # (Manual) (1.3-7.7) k/uL Lymphocytes # (Manual) (1.0-4.8) k/uL Nucleated RBCs (0-0) /100 WBC Manual Slide Review Poikilocytosis Anisocytosis Microcytosis PT (9.0-12.0) sec INR (<1.2) APTT (22.0-30.0) sec Sodium (137-145) mmol/L Potassium (3.5-5.1) mmol/L Chloride (98-107) mmol/L Carbon Dioxide (22-30) mmol/L Anion Gap mmol/L BUN (9-20) mg/dL Creatinine (0.66-1.25) mg/dL Est GFR (CKD-EPI)AfAm (>60 ml/min/1.73 sqM) Est GFR (CKD-EPI)NonAf (>60 ml/min/1.73 sqM) Glucose (74-99) mg/dL Plasma Lactic Acid Justin (0.7-2.0) mmol/L Calcium (8.4-10.2) mg/dL Magnesium (1.6-2.3) mg/dL Total Bilirubin (0.2-1.3) mg/dL AST (17-59) U/L ALT (4-49) U/L Alkaline Phosphatase (38-126) U/L Creatine Kinase (55-170) U/L Troponin I (0.000-0.034) ng/mL NT-Pro-B Natriuret Pep pg/mL Total Protein (6.3-8.2) g/dL Albumin (3.5-5.0) g/dL Coronavirus (PCR) Detected A (Not Detectd) - EKG Data -: EKG Interpreted by Sc EKG shows normal: sinus rhythm EKG Comments: Sinus rhythm rate of 83. Interval 164 QRS 94 QT since QTC 360/[address]-T wave changes - Radiology Data Radiology results: report reviewed (imaging reviewed no definitive infiltrate seen.), image reviewed Critical Care Time Critical Care Time: Yes Total Critical Care Time: 31 Critical Care Time: total care time including initial presentation with history physical labs x- raysdiscussed with paramedics upon arrival. Old chart is available multiple reevaluation the patient responsive therapy. Discussed with the main physician admission orders and documentation of the above Disposition Clinical Impression: COPD exacerbation, Leukemia, Acute respiratory distress syndrome in adult, Bronchitis, Bronchospasm, acute Disposition: ADMITTED IP TO THIS HOSP Condition: Fair Referrals: Mikhail Msaters MD [Primary Care Provider] - 1-2 days
[2020-10-22 17:20] LABS: Anisocytosis Slight; HCT 35.6 % (39.0-53.0); HGB 11.7 gm/dL (13.0-17.5); MCH 25.7 pg (25.0-35.0); MCHC 32.9 g/dL (31.0-37.0); Mean Platelet Volume 6.8; Microcytosis Slight; Platelet Count 303 k/uL (150-450); Poikilocytosis Slight; RBC 4.57 m/uL (4.30-5.90); RDW 19.3 % (11.5-15.5)
[2020-10-22 17:34] LABS: Albumin 3.7 g/dL (3.5-5.0); Calcium 8.9 mg/dL (8.4-10.2); Magnesium 2.3 mg/dL (1.6-2.3); Potassium 4.6 mmol/L (3.5-5.1); Total Bilirubin 1.2 mg/dL (0.2-1.3)
[2020-10-22] MEDS: IPRATROPIUM-ALBUTEROL 3 ML NEB INHALATION STA ×2 (17:36→17:37)
[2020-10-22 17:44] LABS: Band Neutrophils % 1 %; Neutrophils % (M) 6 %; Nucleated Red Blood Cells 0 /100 WBC (0-0); Total Cells Counted 200
[2020-10-22 17:46] LABS: INR 2.7 (<1.2)
--- NOTE | 2020-10-22 17:56 | XR ---
EXAMINATION TYPE: XR chest 2V DATE OF EXAM: 10/22/2020 COMPARISON: 09/23/2020 HISTORY: Short of breath TECHNIQUE: FINDINGS: There is mild coarse interstitial density in the lower lung wolfe. Heart size is normal. T here is no heart failure. There are no hilar masses. There is no pulmonary consolidation. IMPRESSION: Mild interstitial increased pulmonary density slightly more than last exam. There is alvarez ring of the minimal fluid and pleural reaction left lateral lung base compared to old exam.
[2020-10-22 17:57] LABS: Partial Thromboplastin Time 61.5 sec (22.0-30.0)
[2020-10-22] MEDS ORDERED: BISMUTH SUBSALICYLATE 4,192 MG/240 ML BOTTLE PO PRN (19:28)
[2020-10-22] MEDS ORDERED: clonazePAM 0.5 MG TAB PO PRN (19:28)
[2020-10-22] MEDS ORDERED: CALCIUM CARBONATE 500 MG CHEWABLE PO PRN (19:28)
[2020-10-22] MEDS: CYCLOBENZAPRINE 10 MG TAB PO SCH (20:39)
[2020-10-22] MEDS: ALBUTEROL HFA INHALER INHALATION SCH (20:43)
[2020-10-22] MEDS: CHLORHEXIDINE GLUCONATE 15 ML CUP MUCOUS MEM SCH (21:19)
[2020-10-22] MEDS: methylPREDNISolone SOD SUCCI 125 MG/2 ML VIAL IV SCH (23:40)
[2020-10-23] MEDS: ALBUTEROL HFA INHALER INHALATION SCH ×7 (00:04→23:55)
[2020-10-23] MEDS: methylPREDNISolone SOD SUCCI 125 MG/2 ML VIAL IV SCH (05:39)
[2020-10-23 07:13] LABS: Glucose,Whole Blood 175 mg/dL (75-99)
[2020-10-23] MEDS ORDERED: PANTOPRAZOLE 40 MG TABLET PO SCH (07:30)
[2020-10-23] MEDS: TIOTROPIUM 2.5 MCG INHALER INHALATION SCH (07:41)
[2020-10-23] MEDS: PARoxetine 20 MG TAB PO SCH (08:33)
[2020-10-23] MEDS: CHLORHEXIDINE GLUCONATE 15 ML CUP MUCOUS MEM SCH ×2 (08:33→21:01)
[2020-10-23] MEDS: LEVOFLOXACIN 500 MG TAB PO SCH (08:35)
[2020-10-23] MEDS: FERROUS SULFATE 325 MG TAB PO SCH (08:35)
[2020-10-23 10:57] LABS: INR 2.35 (0.90-1.11); Prothrombin Time 24.2 sec (9.9-11.9)
[2020-10-23] MEDS ORDERED: REMDESIVIR 200 MG in SODIUM CHLORIDE 0.9% 250 ML IVPB ONE (11:00)
[2020-10-23 11:10] LABS: African American GFR (CKD) 93.1 (60.0-200.0); Albumin 4.2 g/dL (3.80-4.90); Albumin/Globulin Ratio 1.83 (1.60-3.17); Anion Gap 7.7 mmol/L (4.00-12.00); Calcium 8.5 mg/dL (8.7-10.3); Carbon Dioxide 21.3 mmol/L (21.6-31.8); Globulin 2.3 g/dL (1.6-3.3); Non-African American GFR(CKD) 80.3 (60.0-200.0); Potassium 4.5 mmol/L (3.5-5.5); Total Bilirubin 0.8 mg/dL (0.3-1.2); Total Protein 6.5 g/dL (6.2-8.2)
[2020-10-23 11:34] VITALS: BMI 21.4
[2020-10-23 11:47] LABS: HCT 36.9 % (39.6-50.0); HGB 11.4 g/dL (13.0-17.0); MCH 25.2 pg (27.0-32.0); MCHC 30.9 g/dL (32.0-37.0); MCV 81.5 fL (80.0-97.0); Mean Platelet Volume 8.8 fL (9.5-12.2); Platelet Count 286 X 10*3/uL (140-440); RBC 4.53 X 10*6/uL (4.40-5.60); RDW 21.2 % (11.5-14.5); WBC 40.39 X 10*3/uL (4.50-10.00)
[2020-10-23 11:48] LABS: Anisocytosis (M) 2+; Basophils # (M) 0 X 10*3/uL (0.00-0.10); Eosinophils # (M) 0 X 10*3/uL (0.04-0.35); Lymphocytes # (M) 37.16 X 10*3/uL (0.90-5.00); Neutrophils # (M) 2.83 X 10*3/uL (2.00-8.90); Neutrophils % (M) 7 %; Smudge Cells PRESENT
[2020-10-23 12:03] LABS: Glucose,Whole Blood 275 mg/dL (75-99)
--- NOTE | 2020-10-23 13:01 | P.CNPUL ---
History of Present Illness Consult date: 10/23/20 Requesting physician: Gregor Singer Reason for consult: dyspnea, cough, COPD, hypoxemia Chief complaint: Shortness of breath. History of present illness: 60-year-old male with a history of chronic lymphocytic leukemia, and COPD, who presents to the emergency department via EMS, on 10/22/2020, at 1648 in the afternoon. The patient came in complaining of shortness of breath. In addition, he did have a cough, that was mostly nonproductive. He was not getting any better at home and decided to come in to be evaluated. He denied any fever or chills, chest pain or chest discomfort. He was complaining of significant and progressive weakness. In addition, the patient was admitted to black loose stools. The patient also tested positive for COVID 19 infection, which may very well explain his symptoms. His chest x-ray showed some interstitial patchy densities, mostly in the left lung, when compared to a previous chest x-ray done on September 23 of this year. He was evaluated by Dr. Salgado in the emergency department and was admitted with a diagnosis of possible COVID 19 pneumonia, COPD exacerbation, as well as bronchitis, and leukemia. Currently, the patient's on O2 at 2 L. His symptoms started about 3-1/2-4 days ago. Hence, we placed the patient on remdesivir, Decadron, vitamin C, vitamin D3, zinc, Pepcid, and melatonin. We also ordered him 1 unit convalescent plasma. Review of Systems REVIEW OF SYSTEMS: CONSTITUTIONAL: Weakness and fatigue, poor appetite. NEUROLOGIC: [ Negative.] HEENT: [ Negative.] CARDIAC: [Negative.] PULMONARY: Shortness of breath, and mostly nonproductive cough. GI: Loose black stools. : [Negative.] RHEUMATOLOGIC: [ Negative.] IMMUNOLOGIC: [ Negative.] ENDOCRINE: [Negative. ] DERMATOLOGIC: [Negative.] Past Medical History Past Medical History: Cancer Additional Past Medical History / Comment(s): CCL leukemia, emphysema, plueral effusion 09/23/2020 History of Any Multi-Drug Resistant Organisms: None Reported Past Surgical History: Appendectomy Past Anesthesia/Blood Transfusion Reactions: No Reported Reaction Past Psychological History: Anxiety, Depression Additional Psychological History / Comment(s): pt states he gets occassional suicidal thoughts but doesn't have a plan and wants a plan Smoking Status: Former smoker Past Alcohol Use History: None Reported Past Drug Use History: Marijuana Medications and Allergies Home Medications Medication Instructions Recorded Confirmed Type Albuterol Sulfate [Proair Hfa] 2 puff INHALATION RT-QID PRN 09/23/20 10/22/20 History Bismuth Subsalicylate 262 mg PO Q6H PRN 09/23/20 10/22/20 History [Pepto-Bismol] Calcium Carbonate [Tums] 1,000 mg PO TID PRN 09/23/20 10/22/20 History Cyclobenzaprine [Flexeril] 10 mg PO HS 09/23/20 10/22/20 History Ferrous Sulfate [Iron (65 MG 325 mg PO DAILY 09/23/20 10/22/20 History Elemental)] Fluticasone/Salmeterol [Advair 1 puff INHALATION RT-BID 09/23/20 10/22/20 History 250-50 Diskus] Omeprazole 20 mg PO DAILY 09/23/20 10/22/20 History PARoxetine [Paxil] 20 mg PO DAILY 09/23/20 10/22/20 History Tiotropium Ranger [Spiriva] 1 cap INHALATION RT-DAILY@1200 09/23/20 10/22/20 History clonazePAM [KlonoPIN] 0.5 mg PO BID PRN 09/23/20 10/22/20 History Aspirin 325 mg PO DAILY #30 tab 09/27/20 10/22/20 Rx Chlorhexidine Gluconate [Peridex] 15 ml MUCOUS MEM BID #1 ml 09/27/20 10/22/20 Rx Allergies Allergy/AdvReac Type Severity Reaction Status Date / Time Penicillins Allergy Unknown Verified 09/23/20 15:35 Childhood Physical Exam Osteopathic Statement: *. No significant issues noted on an osteopathic structural exam other than those noted in the History and Physical/Consult. Vitals: Vital Signs Temp Pulse Pulse Resp BP BP Pulse Ox 10/23/20 10:30 96 F L 77 18 103/65 96 10/23/20 08:41 98.3 F 75 17 132/70 96 10/23/20 08:00 17 10/23/20 06:40 96.1 F L 68 90/47 96 10/23/20 02:46 97.5 F L 76 104/63 95 10/22/20 20:20 98.7 F 89 103/65 96 10/22/20 18:27 92 18 98/61 96 10/22/20 17:47 89 10/22/20 17:37 87 10/22/20 16:49 98.9 F 84 20 96/72 98 Intake and Output 10/22/20 10/23/20 10/23/20 22:59 06:59 14:59 Intake Total 200 Output Total 1 Balance 199 Intake: Oral 200 Output: Stool 1 Other: Voiding Method Toilet # Voids 2 Weight 60.328 kg 60.328 kg No acute distress, oriented 3. Pale. Nasal O2 in place at 2 L. No conversational dyspnea, use of accessory muscles, or audible wheezing. HEENT examination is grossly unremarkable. Mucous membranes are moist. Neck supple. Full range of motion. No adenopathy thyromegaly or neck vein distention. Cardiovascular examination reveals regular rhythm rate. S1-S2 normal. No S3 or S4. No discernible murmur noted. Heart rate 77 bpm. Heart sounds distant. Lungs reveal mostly clear breath sounds. A few scattered rhonchi are noted. No wheezes or crackles. Breath sounds equal bilaterally. Abdomen soft bowel sounds are heard. No masses or tenderness. Extremities are intact. No cyanosis clubbing or edema. Skin is without rash or lesion. Neurologic examination is brief but nonfocal. Results - Laboratory Findings CBC and BMP: 10/23/20 07:24 10/23/20 07:24 PT/INR, D-dimer PT 24.2 sec (9.9-11.9) H 10/23/20 07:24 INR 2.35 (0.90-1.11) H 10/23/20 07:24 D-Dimer 18.66 mg/L FEU (<0.60) H 10/23/20 10:54 Abnormal lab findings: Abnormal Labs 10/22/20 10/22/20 10/22/20 17:07 17:07 17:07 WBC 35.0 H Hgb 11.7 L Hct 35.6 L MCV 78.0 L MCH MCHC RDW 19.3 H MPV Absolute Nucleated RBC Lymphocytes # (Manual) 32.90 H Eosinophils # (Manual) NRBC/100 WBC Diff PT 26.0 H INR 2.7 H APTT 61.5 H D-Dimer Sodium 130 L Carbon Dioxide 19 L BUN 30 H BUN/Creatinine Ratio Glucose POC Glucose (mg/dL) Calcium Creatine Kinase 43 L Coronavirus (PCR) 10/22/20 10/23/20 10/23/20 Unknown 07:11 07:24 WBC 40.39 H Hgb 11.4 L Hct 36.9 L MCV MCH 25.2 L MCHC 30.9 L RDW 21.2 H MPV 8.8 L Absolute Nucleated RBC 0.03 H Lymphocytes # (Manual) 37.16 H Eosinophils # (Manual) 0 L NRBC/100 WBC Diff 0.1 H PT INR APTT D-Dimer Sodium Carbon Dioxide BUN BUN/Creatinine Ratio Glucose POC Glucose (mg/dL) 175 H Calcium Creatine Kinase Coronavirus (PCR) Detected A 10/23/20 10/23/20 10/23/20 07:24 07:24 10:54 WBC Hgb Hct MCV MCH MCHC RDW MPV Absolute Nucleated RBC Lymphocytes # (Manual) Eosinophils # (Manual) NRBC/100 WBC Diff PT 24.2 H INR 2.35 H APTT D-Dimer 18.66 H Sodium 134 L Carbon Dioxide 21.3 L BUN BUN/Creatinine Ratio 25.00 H Glucose 203 H POC Glucose (mg/dL) Calcium 8.5 L Creatine Kinase Coronavirus (PCR) 10/23/20 12:01 WBC Hgb Hct MCV MCH MCHC RDW MPV Absolute Nucleated RBC Lymphocytes # (Manual) Eosinophils # (Manual) NRBC/100 WBC Diff PT INR APTT D-Dimer Sodium Carbon Dioxide BUN BUN/Creatinine Ratio Glucose POC Glucose (mg/dL) 275 H Calcium Creatine Kinase Coronavirus (PCR) - Diagnostic Findings Chest x-ray: image reviewed Assessment and Plan Assessment: COVID 19 infection, with possible developing/mild pneumonia/pneumonitis, and mild hypoxemic respiratory failure. COPD, with possible COPD exacerbation. History of chronic lymphocytic leukemia. History of pleural effusion. History of gastroesophageal reflux disease. Prior history of heavy tobacco use. History of chronic anemia. Plan: Plan dated 10/23/2020. The patient was given remdesivir, 200 mg IV today, and 100 mg IV day 2,3,4 and 5. In addition, the patient was placed on Decadron, vitamin C, vitamin D3, and zinc. We also wrote for 1 unit of, convalescent plasma. Because of his elevated d-dimer, we will place him on therapeutic doses of Lovenox. We will continue to follow him closely and make recommendations were appropriate. The patient will also be on albuterol inhaler, along with his Symbicort. Prognosis is guarded. Hopefully, the patient will not deteriorate. Time with Patient: Greater than 30
[2020-10-23] MEDS: ZINC SULFATE 220 MG CAP PO SCH (15:12)
[2020-10-23] MEDS: ASCORBIC ACID 500 MG TAB PO SCH (15:12)
[2020-10-23] MEDS: CHOLECALCIFEROL 25 MCG (1000 IU) TABLET PO SCH (15:12)
[2020-10-23] MEDS: DEXAMETHASONE SOD PHOSPHATE 10 MG/ML 1 ML VIAL IV SCH (15:12)
[2020-10-23] MEDS: FAMOTIDINE 20 MG TAB PO SCH (15:12)
[2020-10-23] MEDS: ASPIRIN 325 MG TAB PO SCH (15:13)
[2020-10-23 17:18] LABS: Glucose,Whole Blood 211 mg/dL (75-99)
[2020-10-23] MEDS: SYMBICORT 160-4.5 MCG INHALER INHALATION SCH (20:18)
[2020-10-23 20:20] LABS: Glucose,Whole Blood 154 mg/dL (75-99)
[2020-10-23] MEDS: ENOXAPARIN 60 MG/0.6 ML SYRINGE SQ SCH (21:01)
[2020-10-23] MEDS: CYCLOBENZAPRINE 10 MG TAB PO SCH (21:01)
[2020-10-23] MEDS: MELATONIN 5 MG TABLET PO SCH (21:01)
--- NOTE | 2020-10-23 21:12 | P.HPIM ---
History of Present Illness H&P Date: 10/23/20 Chief Complaint: Not feeling well History of presenting complaint: This is a pleasant 60-year-old patient of Dr. Renny Masters. Chronic stable medical conditions include anxiety depression, GERD, COPD, known CLL with a baseline count running around [address]. [address] Faulkner. Positive lupus anticoagulant Patient now presents feeling unwell about 5 years ago. Had some diarrhea. Subsequently started feeling more weak and tired. The headache body aches. No change in taste or smell. Throat cough with clear phlegm. Having chills. No fever. Episode of dark stool. Patient tested positive for Coronavirus in the ER. Review of systems: GEN.: Tired EYES: None HEENT: None NECK: None RESPIRATORY: Cough some sputum CARDIOVASCULAR: None GASTROINTESTINAL: None GENITOURINARY: None MUSCULOSKELETAL: Generalized achiness LYMPHATICS: None HEMATOLOGICAL: None PSYCHIATRY: None NEUROLOGICAL: None Past medical history to include: Chronic lymphoid leukemia, COPD, anxiety, GERD, lupus anticoagulant positive Social history: Patient smoked about a pack and half a day for close to 42 years stopped recently. Lives alone. Employed for [employer] Family history: Reviewed, noncontributory to presentation Physical examination: VITAL SIGNS: 98.9, 84, 20, 96/72, 98% room air GENERAL: BMI 21.5, reclining in bed, not in distress. EYES: Pupils equal. Conjunctiva normal. HEENT: External appearance of nose and ears normal, oral cavity grossly normal. NECK: JVD not raised; masses not palpable. HEART: First and second heart sounds are normal; no edema. LUNGS: Respiratory rate increased, decreased breath sounds. ABDOMEN: Soft, nontender, liver spleen not palpable, no masses palpable. PSYCH: Alert and oriented x3; mood and affect normal. NEUROLOGICAL: Cranial nerves grossly intact; no facial asymmetry, power and sensation grossly intact. LYMPHATICS: No [Lymph nodes palpable in the neck and submandibular area. INVESTIGATIONS, reviewed in the clinical context: White count 35 hemoglobin 11.7 platelets 303 lymphocytes 32.9 Pro time 26 PTT 61.5 d-dimer 8.6 potassium 4.6 sodium 1:30 creatinine 1.2 to CRP 11 EKG tracing personally reviewed by me-sinus rhythm Chest x-ray film personally reviewed by me-bilateral consultation prominent Coronavirus [PCR]-detected Previous testing: Lupus anticoagulant APTT increased at 104 2% anticoagulant PTT mix increased at 71 Diluted Eric viper venom increased at 58 Lupus Hexagonal phase positive LA DRVVT confirm-negative DRVVT 50:50-increased at 58 Rheumatoid factor XII Cyclical Citra Obrien peptide IgG 7.6 Cyclic central peptide positive ANAs screen [place]NA[place]ón[place] [id number] In a pattern that if oral Double-stranded DNA antibody negative Assessment and plan: -COVID 19 pneumonia. Patient does not any significant hypoxia. Initial pulse ox 98% room air. Given Remdesivir. Also Decadron vitamin C vitamin D3 zinc. Also convalescent plasma ordered. Subcu Lovenox. -Chronic lymphocytic leukemia -GERD -Anxiety depression not otherwise specified -Positive lupus anticoagulant -Pulmonary consulted. Also consult hematology. Care was discussed with the patient. Check pro-calcitonin Past Medical History Past Medical History: Cancer Additional Past Medical History / Comment(s): CCL leukemia, emphysema, plueral effusion 09/23/2020 History of Any Multi-Drug Resistant Organisms: None Reported Past Surgical History: Appendectomy Past Anesthesia/Blood Transfusion Reactions: No Reported Reaction Past Psychological History: Anxiety, Depression Additional Psychological History / Comment(s): pt states he gets occassional suicidal thoughts but doesn't have a plan and wants a plan Smoking Status: Former smoker Past Alcohol Use History: None Reported Past Drug Use History: Marijuana Medications and Allergies Home Medications Medication Instructions Recorded Confirmed Type Albuterol Sulfate [Proair Hfa] 2 puff INHALATION RT-QID PRN 09/23/20 10/22/20 History Bismuth Subsalicylate 262 mg PO Q6H PRN 09/23/20 10/22/20 History [Pepto-Bismol] Calcium Carbonate [Tums] 1,000 mg PO TID PRN 09/23/20 10/22/20 History Cyclobenzaprine [Flexeril] 10 mg PO HS 09/23/20 10/22/20 History Ferrous Sulfate [Iron (65 MG 325 mg PO DAILY 09/23/20 10/22/20 History Elemental)] Fluticasone/Salmeterol [Advair 1 puff INHALATION RT-BID 09/23/20 10/22/20 History 250-50 Diskus] Omeprazole 20 mg PO DAILY 09/23/20 10/22/20 History PARoxetine [Paxil] 20 mg PO DAILY 09/23/20 10/22/20 History Tiotropium Jewett [Spiriva] 1 cap INHALATION RT-DAILY@1200 09/23/20 10/22/20 History clonazePAM [KlonoPIN] 0.5 mg PO BID PRN 09/23/20 10/22/20 History Aspirin 325 mg PO DAILY #30 tab 09/27/20 10/22/20 Rx Chlorhexidine Gluconate [Peridex] 15 ml MUCOUS MEM BID #1 ml 09/27/20 10/22/20 Rx Allergies Allergy/AdvReac Type Severity Reaction Status Date / Time Penicillins Allergy Unknown Verified 09/23/20 15:35 Childhood Physical Exam Vitals: Vital Signs Temp Pulse Pulse Resp BP BP Pulse Ox 10/23/20 08:41 98.3 F 75 17 132/70 96 10/23/20 08:00 17 10/23/20 06:40 96.1 F L 68 90/47 96 10/23/20 02:46 97.5 F L 76 104/63 95 10/22/20 20:20 98.7 F 89 103/65 96 10/22/20 18:27 92 18 98/61 96 10/22/20 17:47 89 10/22/20 17:37 87 10/22/20 16:49 98.9 F 84 20 96/72 98 Intake and Output 10/22/20 10/23/20 10/23/20 22:59 06:59 14:59 Intake Total 200 Output Total 1 Balance 199 Intake: Oral 200 Output: Stool 1 Other: Voiding Method Toilet # Voids 2 Weight 60.328 kg 60.328 kg Results CBC & Chem 7: 10/23/20 07:24 10/23/20 07:24 Labs: Abnormal Lab Results - Last 24 Hours (Table) 10/22/20 10/22/20 10/22/20 Range/Units 17:07 17:07 17:07 WBC 35.0 H (3.8-10.6) k/uL Hgb 11.7 L (13.0-17.5) gm/dL Hct 35.6 L (39.0-53.0) % MCV 78.0 L (80.0-100.0) fL MCH (27.0-32.0) pg MCHC (32.0-37.0) g/dL RDW 19.3 H (11.5-15.5) % MPV (9.5-12.2) fL Absolute Nucleated RBC (0.00-0.00) X 10*3/uL Lymphocytes # (Manual) 32.90 H (1.0-4.8) k/uL Eosinophils # (Manual) (0.04-0.35) X 10*3/uL NRBC/100 WBC Diff (0.0-0.0) /100 WBCS PT 26.0 H (9.0-12.0) sec INR 2.7 H (<1.2) APTT 61.5 H (22.0-30.0) sec D-Dimer (<0.60) mg/L FEU Sodium 130 L (137-145) mmol/L Carbon Dioxide 19 L (22-30) mmol/L BUN 30 H (9-20) mg/dL BUN/Creatinine Ratio (12.00-20.00) Ratio Glucose (70-110) mg/dL POC Glucose (mg/dL) (75-99) mg/dL Calcium (8.7-10.3) mg/dL Creatine Kinase 43 L (55-170) U/L Coronavirus (PCR) (Not Detectd) 10/22/20 10/23/20 10/23/20 Range/Units Unknown 07:11 07:24 WBC 40.39 H (3.8-10.6) k/uL Hgb 11.4 L (13.0-17.5) gm/dL Hct 36.9 L (39.0-53.0) % MCV (80.0-100.0) fL MCH 25.2 L (27.0-32.0) pg MCHC 30.9 L (32.0-37.0) g/dL RDW 21.2 H (11.5-15.5) % MPV 8.8 L (9.5-12.2) fL Absolute Nucleated RBC 0.03 H (0.00-0.00) X 10*3/uL Lymphocytes # (Manual) 37.16 H (1.0-4.8) k/uL Eosinophils # (Manual) 0 L (0.04-0.35) X 10*3/uL NRBC/100 WBC Diff 0.1 H (0.0-0.0) /100 WBCS PT (9.0-12.0) sec INR (<1.2) APTT (22.0-30.0) sec D-Dimer (<0.60) mg/L FEU Sodium (137-145) mmol/L Carbon Dioxide (22-30) mmol/L BUN (9-20) mg/dL BUN/Creatinine Ratio (12.00-20.00) Ratio Glucose (70-110) mg/dL POC Glucose (mg/dL) 175 H (75-99) mg/dL Calcium (8.7-10.3) mg/dL Creatine Kinase (55-170) U/L Coronavirus (PCR) Detected A (Not Detectd) 10/23/20 10/23/20 10/23/20 Range/Units 07:24 07:24 10:54 WBC (3.8-10.6) k/uL Hgb (13.0-17.5) gm/dL Hct (39.0-53.0) % MCV (80.0-100.0) fL MCH (27.0-32.0) pg MCHC (32.0-37.0) g/dL RDW (11.5-15.5) % MPV (9.5-12.2) fL Absolute Nucleated RBC (0.00-0.00) X 10*3/uL Lymphocytes # (Manual) (1.0-4.8) k/uL Eosinophils # (Manual) (0.04-0.35) X 10*3/uL NRBC/100 WBC Diff (0.0-0.0) /100 WBCS PT 24.2 H (9.0-12.0) sec INR 2.35 H (<1.2) APTT (22.0-30.0) sec D-Dimer 18.66 H (<0.60) mg/L FEU Sodium 134 L (137-145) mmol/L Carbon Dioxide 21.3 L (22-30) mmol/L BUN (9-20) mg/dL BUN/Creatinine Ratio 25.00 H (12.00-20.00) Ratio Glucose 203 H (70-110) mg/dL POC Glucose (mg/dL) (75-99) mg/dL Calcium 8.5 L (8.7-10.3) mg/dL Creatine Kinase (55-170) U/L Coronavirus (PCR) (Not Detectd) Thrombosis Risk Factor Assmnt - Choose All That Apply Each Risk Factor Represents 2 Points: Age 61-74 years Thrombosis Risk Factor Assessment Total Risk Factor Score: 2 Thrombosis Risk Factor Assessment Level: Low Risk
[2020-10-24] MEDS: ALBUTEROL HFA INHALER INHALATION SCH ×5 (03:58→20:18)
[2020-10-24 06:11] LABS: D-Dimer 8.06 mg/L FEU (<0.60); INR 2.8 (<1.2); Prothrombin Time 26.7 sec (9.0-12.0)
[2020-10-24 06:19] LABS: ALT 19 U/L (4-49); AST 38 U/L (17-59); African American GFR (CKD) >90 (>60 ml/min/1.73 sqM); Albumin 2.9 g/dL (3.5-5.0); Alkaline Phosphatase 77 U/L (38-126); Anion Gap 6 mmol/L; Blood Urea Nitrogen 21 mg/dL (9-20); C Reactive Protein 50.5 mg/L (<10.0); Calcium 8.6 mg/dL (8.4-10.2); Carbon Dioxide 20 mmol/L (22-30); Chloride 109 mmol/L (98-107); Globulin 2.8 g/dL; Glucose 152 mg/dL (74-99); Non-African American GFR(CKD) >90 (>60 ml/min/1.73 sqM); Potassium 4.4 mmol/L (3.5-5.1); Sodium 135 mmol/L (137-145); Total Bilirubin 0.5 mg/dL (0.2-1.3); Total Protein 5.7 g/dL (6.3-8.2)
[2020-10-24 07:10] LABS: Glucose,Whole Blood 125 mg/dL (75-99)
[2020-10-24] MEDS: FERROUS SULFATE 325 MG TAB PO SCH (07:55)
[2020-10-24] MEDS: CHOLECALCIFEROL 25 MCG (1000 IU) TABLET PO SCH (07:55)
[2020-10-24] MEDS: DEXAMETHASONE SOD PHOSPHATE 10 MG/ML 1 ML VIAL IV SCH ×2 (07:55→23:11)
[2020-10-24] MEDS: PARoxetine 20 MG TAB PO SCH (07:56)
[2020-10-24] MEDS: LEVOFLOXACIN 500 MG TAB PO SCH (07:56)
[2020-10-24] MEDS: ASCORBIC ACID 500 MG TAB PO SCH (07:56)
[2020-10-24] MEDS: ZINC SULFATE 220 MG CAP PO SCH (07:56)
[2020-10-24] MEDS: FAMOTIDINE 20 MG TAB PO SCH ×2 (07:56→20:54)
[2020-10-24] MEDS: ASPIRIN 325 MG TAB PO SCH (07:56)
[2020-10-24] MEDS: ENOXAPARIN 60 MG/0.6 ML SYRINGE SQ SCH ×2 (07:57→20:55)
[2020-10-24] MEDS: CHLORHEXIDINE GLUCONATE 15 ML CUP MUCOUS MEM SCH ×2 (07:57→21:49)
[2020-10-24] MEDS: SYMBICORT 160-4.5 MCG INHALER INHALATION SCH ×2 (08:24→20:26)
[2020-10-24] MEDS: TIOTROPIUM 2.5 MCG INHALER INHALATION SCH (08:25)
[2020-10-24 10:15] LABS: Basophils # (A) 0.06 X 10*3/uL (0.00-0.10); Basophils % (A) 0.1 %; Eosinophils # (A) 0 X 10*3/uL (0.04-0.35); Eosinophils % (A) 0 %; HGB 9.6 g/dL (13.0-17.0); Lymphocytes # (A) 32.44 X 10*3/uL (0.90-5.00); MCH 25.1 pg (27.0-32.0); MCV 80.9 fL (80.0-97.0); Mean Platelet Volume 9.3 fL (9.5-12.2); Monocytes # (A) 1.12 X 10*3/uL (0.20-1.00); Monocytes % (A) 2.8 %; Neutrophils # (A) 6.76 X 10*3/uL (1.80-7.70); Neutrophils % (A) 16.7 %; Platelet Count 310 X 10*3/uL (140-440); RBC 3.83 X 10*6/uL (4.40-5.60); RDW 21.3 % (11.5-14.5); WBC 40.53 X 10*3/uL (4.50-10.00)
[2020-10-24 11:17] LABS: Glucose,Whole Blood 161 mg/dL (75-99)
[2020-10-24] MEDS: REMDESIVIR 100 MG in SODIUM CHLORIDE 0.9% 250 ML IVPB SCH (11:42)
--- NOTE | 2020-10-24 11:51 | P.PN ---
Subjective Progress Note Date: 10/24/20 60-year-old male with a history of chronic lymphocytic leukemia, and COPD, who presents to the emergency department via EMS, on 10/22/2020, at 1648 in the afternoon. The patient came in complaining of shortness of breath. In addition, he did have a cough, that was mostly nonproductive. He was not getting any better at home and decided to come in to be evaluated. He denied any fever or chills, chest pain or chest discomfort. He was complaining of significant and progressive weakness. In addition, the patient was admitted to [facility]. The patient also tested positive for COVID 19 infection, which may very well explain his symptoms. His chest x-ray showed some interstitial patchy densities, mostly in the left lung, when compared to a previous chest x-ray done on September 23 of this year. He was evaluated by Dr. Salgado in the emergency department and was admitted with a diagnosis of possible COVID 19 pneumonia, COPD exacerbation, as well as bronchitis, and leukemia. Currently, the patient's on O2 at 2 L. His symptoms started about 3-1/2-4 days ago. Hence, we placed the patient on remdesivir, Decadron, vitamin C, vitamin D3, zinc, Pepcid, and melatonin. We also ordered him 1 unit convalescent plasma. 10/24/2019 over seeing the patient for a follow-up regarding Covid 19 related pneumonia. The patient's comorbidities including COPD and CLL. The patient also has a positive lupus anticoagulant. The patient was having increased cough and he tested positive for coronary via/Covid 19 infection on 10/22/2020. Currently he is admitted with some limited pneumonia and the patient is currently receiving a combination of treatment including remdesivir, Decadron, vitamin C, vitamin D3, zinc, Pepcid, and melatonin., And he also received 1 unit convalescent plasma.currently is on 6 mg of Decadron. He is afebrile. He remains on 2 L of oxygen by nasal cannula. His inflammatory markers showed a CRP level of 15, his LDH level was at 2 MESSI and his pro-calcitonin level was low at 0.12. Objective - Vital Signs Vital signs: Vital Signs Temp 97.5 F L 10/24/20 10:00 Pulse 87 10/24/20 10:00 Resp 18 10/24/20 10:00 BP 107/51 10/24/20 10:00 Pulse Ox 93 L 10/24/20 10:00 Intake & Output 10/23/20 10/24/20 10/24/20 18:59 06:59 18:59 Intake Total 0 210 Balance 0 210 Weight 60.328 kg Intake: Blood Product 0 210 Ffp Pher Conval Covid19 0 210 Acda 2 Unit [id number] Other: Voiding Method Toilet # Voids 3 2 # Bowel Movements 2 - Exam No acute distress, oriented 3. Pale. Nasal O2 in place at 2 L. No conversational dyspnea, use of accessory muscles, or audible wheezing. HEENT examination is grossly unremarkable. Mucous membranes are moist. Neck supple. Full range of motion. No adenopathy thyromegaly or neck vein distention. Cardiovascular examination reveals regular rhythm rate. S1-S2 normal. No S3 or S4. No discernible murmur noted. Lungs reveal mostly clear breath sounds. A few scattered rhonchi are noted. No wheezes or crackles. Breath sounds equal bilaterally. Abdomen soft bowel sounds are heard. No masses or tenderness. Extremities are intact. No cyanosis clubbing or edema. Skin is without rash or lesion. Neurologic examination is brief but nonfocal. - Labs CBC & Chem 7: 10/24/20 05:25 10/24/20 05:25 Labs: Abnormal Lab Results - Last 24 Hours (Table) 10/23/20 10/23/20 10/23/20 Range/Units 07:24 10:54 10:54 WBC 40.39 H (4.50-10.00) X 10*3/uL RBC (4.40-5.60) X 10*6/uL Hgb 11.4 L (13.0-17.0) g/dL Hct 36.9 L (39.6-50.0) % MCH 25.2 L (27.0-32.0) pg MCHC 30.9 L (32.0-37.0) g/dL RDW 21.2 H (11.5-14.5) % MPV 8.8 L (9.5-12.2) fL Absolute Nucleated RBC 0.03 H (0.00-0.00) X 10*3/uL Immature Gran # (0.00-0.04) X 10*3/uL Lymphocytes # (Manual) 37.16 H (0.90-5.00) X 10*3/uL Monocytes # (0.20-1.00) X 10*3/uL Eosinophils # (0.04-0.35) X 10*3/uL Eosinophils # (Manual) 0 L (0.04-0.35) X 10*3/uL NRBC/100 WBC Diff 0.1 H (0.0-0.0) /100 WBCS PT (9.0-12.0) sec INR (<1.2) D-Dimer 18.66 H (<0.60) mg/L FEU Sodium (137-145) mmol/L Chloride (98-107) mmol/L Carbon Dioxide (22-30) mmol/L BUN (9-20) mg/dL Glucose (74-99) mg/dL POC Glucose (mg/dL) (75-99) mg/dL Lactate Dehydrogenase 280 H (120-246) U/L C-Reactive Protein 11.0 H (0.0-0.8) mg/dL Total Protein (6.3-8.2) g/dL Albumin (3.5-5.0) g/dL Procalcitonin (0.02-0.09) ng/mL 10/23/20 10/23/20 10/23/20 Range/Units 12:01 17:06 20:18 WBC (4.50-10.00) X 10*3/uL RBC (4.40-5.60) X 10*6/uL Hgb (13.0-17.0) g/dL Hct (39.6-50.0) % MCH (27.0-32.0) pg MCHC (32.0-37.0) g/dL RDW (11.5-14.5) % MPV (9.5-12.2) fL Absolute Nucleated RBC (0.00-0.00) X 10*3/uL Immature Gran # (0.00-0.04) X 10*3/uL Lymphocytes # (Manual) (0.90-5.00) X 10*3/uL Monocytes # (0.20-1.00) X 10*3/uL Eosinophils # (0.04-0.35) X 10*3/uL Eosinophils # (Manual) (0.04-0.35) X 10*3/uL NRBC/100 WBC Diff (0.0-0.0) /100 WBCS PT (9.0-12.0) sec INR (<1.2) D-Dimer (<0.60) mg/L FEU Sodium (137-145) mmol/L Chloride (98-107) mmol/L Carbon Dioxide (22-30) mmol/L BUN (9-20) mg/dL Glucose (74-99) mg/dL POC Glucose (mg/dL) 275 H 211 H 154 H (75-99) mg/dL Lactate Dehydrogenase (120-246) U/L C-Reactive Protein (0.0-0.8) mg/dL Total Protein (6.3-8.2) g/dL Albumin (3.5-5.0) g/dL Procalcitonin (0.02-0.09) ng/mL 10/24/20 10/24/20 10/24/20 Range/Units 05:25 05:25 05:25 WBC 40.53 H (4.50-10.00) X 10*3/uL RBC 3.83 L (4.40-5.60) X 10*6/uL Hgb 9.6 L (13.0-17.0) g/dL Hct 31.0 L (39.6-50.0) % MCH 25.1 L (27.0-32.0) pg MCHC 31.0 L (32.0-37.0) g/dL RDW 21.3 H (11.5-14.5) % MPV 9.3 L (9.5-12.2) fL Absolute Nucleated RBC 0.03 H (0.00-0.00) X 10*3/uL Immature Gran # 0.15 H (0.00-0.04) X 10*3/uL Lymphocytes # (Manual) (0.90-5.00) X 10*3/uL Monocytes # 1.12 H (0.20-1.00) X 10*3/uL Eosinophils # 0 L (0.04-0.35) X 10*3/uL Eosinophils # (Manual) (0.04-0.35) X 10*3/uL NRBC/100 WBC Diff 0.1 H (0.0-0.0) /100 WBCS PT 26.7 H (9.0-12.0) sec INR 2.8 H (<1.2) D-Dimer 8.06 H (<0.60) mg/L FEU Sodium 135 L (137-145) mmol/L Chloride 109 H (98-107) mmol/L Carbon Dioxide 20 L (22-30) mmol/L BUN 21 H (9-20) mg/dL Glucose 152 H (74-99) mg/dL POC Glucose (mg/dL) (75-99) mg/dL Lactate Dehydrogenase (120-246) U/L C-Reactive Protein 50.5 H (0.0-0.8) mg/dL Total Protein 5.7 L (6.3-8.2) g/dL Albumin 2.9 L (3.5-5.0) g/dL Procalcitonin (0.02-0.09) ng/mL 10/24/20 10/24/20 10/24/20 Range/Units 05:25 07:07 11:15 WBC (4.50-10.00) X 10*3/uL RBC (4.40-5.60) X 10*6/uL Hgb (13.0-17.0) g/dL Hct (39.6-50.0) % MCH (27.0-32.0) pg MCHC (32.0-37.0) g/dL RDW (11.5-14.5) % MPV (9.5-12.2) fL Absolute Nucleated RBC (0.00-0.00) X 10*3/uL Immature Gran # (0.00-0.04) X 10*3/uL Lymphocytes # (Manual) (0.90-5.00) X 10*3/uL Monocytes # (0.20-1.00) X 10*3/uL Eosinophils # (0.04-0.35) X 10*3/uL Eosinophils # (Manual) (0.04-0.35) X 10*3/uL NRBC/100 WBC Diff (0.0-0.0) /100 WBCS PT (9.0-12.0) sec INR (<1.2) D-Dimer (<0.60) mg/L FEU Sodium (137-145) mmol/L Chloride (98-107) mmol/L Carbon Dioxide (22-30) mmol/L BUN (9-20) mg/dL Glucose (74-99) mg/dL POC Glucose (mg/dL) 125 H 161 H (75-99) mg/dL Lactate Dehydrogenase (120-246) U/L C-Reactive Protein (0.0-0.8) mg/dL Total Protein (6.3-8.2) g/dL Albumin (3.5-5.0) g/dL Procalcitonin 0.12 H (0.02-0.09) ng/mL Microbiology - Last 24 Hours (Table) 10/23/20 16:10 Stool Culture - Preliminary Stool 10/22/20 17:20 Blood Culture - Preliminary Blood No Growth after 24 hours 10/22/20 17:07 Blood Culture - Preliminary Blood No Growth after 24 hours Assessment and Plan Plan: 1 COVID 19 infection, with possible developing/mild pneumonia/pneumonitis, and mild hypoxemic respiratory failure. She has mild hypoxic respiratory failure and currently is on 2 L about 2 by nasal cannula. He is on a combination of Remdesivir, Decadron, zinc oxide, vitamin C, vitamin D, melatonin, Pepcid, and he is also receiving a unit of convalescent plasma. Inflammatory markers are not significantly elevated. He does have comorbidities including COPD and CLL. 2 COPD, with possible COPD exacerbation. 3 History of chronic lymphocytic leukemia. Patient is being monitored for now regarding his CLL. 4 History of pleural effusion. 5 History of gastroesophageal reflux disease. 6 Prior history of heavy tobacco use. 7 History of chronic anemia. 8 Lupus anticoagulant positive, with elevation of the dilation protocol including PT/INR. No history of any DVTs or pulmonary emboli. Plan: Continue same treatment. Monitor oxygenation. Monitor inflammatory markers. Repeat chest x-ray with next 24-48 hours. Continue Lovenox, his d-dimer is at 8 and the patient has a positive lupus anticoagulant.
--- NOTE | 2020-10-24 15:09 | P.CONS ---
History of Present Illness - Reason for Consult Consult date: 10/24/20 CLL, covid 19 infection Requesting physician: Gregor Singer - Chief Complaint SOB, cough - History of Present Illness NrJ Luis Cochran is a very pleasant male pt of Dr. Chen who was referred around 11/2019 for persistent leukocytosis/erythrocytosis and thrombocytosis. 09/29/19 CBC revealed total wbc of 41.5K, significant for lymphocytosis, mild basoplilia and monocytosis, Hgb 17.7gm/dl, Hct 56%, plt 433K. 11/21/19 flow cytometry on peripheral blood was consistent with CLL. 11/22/19 CT CAP revealed borderline enlarged axillary and mediastinal nodes, retroperitoneal nodes, largest 2.7x1.5cm, splenomegaly measured 17.5cm. He was put on observation as overall he was asymptomatic with no other labs abnormalities. He was told to keep up with vaccines and reminded that he is at risk for infection. Last seen in [facility] 08/2020, FISH studies show 13q deletion, monosomy 13, no other genetic abnormalities. He was inpt last month with pleural SOB and pleural effusion. Prior to procedure coags showed abnormal INR. Mixing study was not completed due to specimen, pt was lupus anticoagulant immunoglobulin positive. Pt is admitted with covid 19, cough, SOB, fever and weakness. Denies oral irritation, chest pain, hemoptysis, abd pain, N,V, acute changes in bowel or bladder, bleeding or rash. Review of Systems 14 point ROS is neg except as stated in HPI Past Medical History Past Medical History: Cancer Additional Past Medical History / Comment(s): Chronic lymphocytic leukemia, emphysema, plueral effusion 09/23/2020 History of Any Multi-Drug Resistant Organisms: None Reported Past Surgical History: Appendectomy Past Anesthesia/Blood Transfusion Reactions: No Reported Reaction Past Psychological History: Anxiety, Depression Additional Psychological History / Comment(s): pt states he gets occassional suicidal thoughts but doesn't have a plan and wants a plan Smoking Status: Former smoker Past Alcohol Use History: None Reported Past Drug Use History: Marijuana Medications and Allergies Home Medications Medication Instructions Recorded Confirmed Type Albuterol Sulfate [Proair Hfa] 2 puff INHALATION RT-QID PRN 09/23/20 10/22/20 History Bismuth Subsalicylate 262 mg PO Q6H PRN 09/23/20 10/22/20 History [Pepto-Bismol] Calcium Carbonate [Tums] 1,000 mg PO TID PRN 09/23/20 10/22/20 History Cyclobenzaprine [Flexeril] 10 mg PO HS 09/23/20 10/22/20 History Ferrous Sulfate [Iron (65 MG 325 mg PO DAILY 09/23/20 10/22/20 History Elemental)] Fluticasone/Salmeterol [Advair 1 puff INHALATION RT-BID 09/23/20 10/22/20 History 250-50 Diskus] Omeprazole 20 mg PO DAILY 09/23/20 10/22/20 History PARoxetine [Paxil] 20 mg PO DAILY 09/23/20 10/22/20 History Tiotropium [place] [Spiriva] 1 cap INHALATION RT-DAILY@1200 09/23/20 10/22/20 History clonazePAM [KlonoPIN] 0.5 mg PO BID PRN 09/23/20 10/22/20 History Aspirin 325 mg PO DAILY #30 tab 09/27/20 10/22/20 Rx Chlorhexidine Gluconate [Peridex] 15 ml MUCOUS MEM BID #1 ml 09/27/20 10/22/20 Rx Allergies Allergy/AdvReac Type Severity Reaction Status Date / Time Penicillins Allergy Unknown Verified 09/23/20 15:35 Childhood Physical Exam Vitals: Vital Signs Temp Pulse Pulse Resp BP BP Pulse Ox 10/24/20 10:00 97.5 F L 87 18 107/51 93 L 10/24/20 05:15 97.9 F 84 15 100/48 95 10/24/20 02:30 97.8 F 72 18 103/55 94 L 10/23/20 20:05 97.6 F 73 17 113/64 10/23/20 19:25 72 18 10/23/20 18:44 97.4 F L 69 18 118/70 96 10/23/20 18:14 97 F L 66 19 102/70 96 10/23/20 18:04 97.6 F 60 16 102/59 95 10/23/20 18:03 98 F 66 83 18 103/66 103/66 90 L Intake and Output 10/23/20 10/24/20 10/24/20 22:59 06:59 14:59 Intake Total 210 Balance 210 Intake: Blood Product 210 Ffp Pher Conval Covid19 210 Acda 2 Unit [id number] Other: Voiding Method Toilet # Voids 3 2 # Bowel Movements 2 - Constitutional General appearance: average body habitus, cooperative, no acute distress - EENT Eyes: anicteric sclerae, EOMI ENT: hearing grossly normal, normal oropharynx - Neck Neck: lymphadenopathy (sm LN bilateral axilla) - Respiratory Respiratory: bilateral: diminished - Cardiovascular Rhythm: regular Heart sounds: normal: S1, S2 Abnormal Heart Sounds: no systolic murmur, no diastolic murmur, no rub, no S3 Gallop, no S4 Gallop, no click, no other leg Peripheral Edema: bilateral: Trace - Gastrointestinal General gastrointestinal: no absent bowel sounds, no decreased bowel sounds, no distended, no hepatomegaly, no hyperactive bowel sounds, normal bowel sounds, no organomegaly, no rigid, no scaphoid, soft, splenomegaly, no tenderness, no umbilical hernia, no ventral hernia - Neurologic Neurologic: CNII-XII intact - Musculoskeletal Musculoskeletal: strength equal bilaterally - Psychiatric Psychiatric: A&O x's 3, appropriate affect, intact judgment & insight Results CBC & Chem 7: 10/24/20 05:25 10/24/20 05:25 Labs: Abnormal Lab Results - Last 24 Hours (Table) 10/23/20 10/23/20 10/23/20 Range/Units 10:54 12:01 17:06 WBC (4.50-10.00) X 10*3/uL RBC (4.40-5.60) X 10*6/uL Hgb (13.0-17.0) g/dL Hct (39.6-50.0) % MCH (27.0-32.0) pg MCHC (32.0-37.0) g/dL RDW (11.5-14.5) % MPV (9.5-12.2) fL Absolute Nucleated RBC (0.00-0.00) X 10*3/uL Immature Gran # (0.00-0.04) X 10*3/uL Monocytes # (0.20-1.00) X 10*3/uL Eosinophils # (0.04-0.35) X 10*3/uL NRBC/100 WBC Diff (0.0-0.0) /100 WBCS PT (9.0-12.0) sec INR (<1.2) D-Dimer (<0.60) mg/L FEU Sodium (137-145) mmol/L Chloride (98-107) mmol/L Carbon Dioxide (22-30) mmol/L BUN (9-20) mg/dL Glucose (74-99) mg/dL POC Glucose (mg/dL) 275 H 211 H (75-99) mg/dL Lactate Dehydrogenase 280 H (120-246) U/L C-Reactive Protein 11.0 H (0.0-0.8) mg/dL Total Protein (6.3-8.2) g/dL Albumin (3.5-5.0) g/dL Procalcitonin (0.02-0.09) ng/mL 10/23/20 10/24/20 10/24/20 Range/Units 20:18 05:25 05:25 WBC 40.53 H (4.50-10.00) X 10*3/uL RBC 3.83 L (4.40-5.60) X 10*6/uL Hgb 9.6 L (13.0-17.0) g/dL Hct 31.0 L (39.6-50.0) % MCH 25.1 L (27.0-32.0) pg MCHC 31.0 L (32.0-37.0) g/dL RDW 21.3 H (11.5-14.5) % MPV 9.3 L (9.5-12.2) fL Absolute Nucleated RBC 0.03 H (0.00-0.00) X 10*3/uL Immature Gran # 0.15 H (0.00-0.04) X 10*3/uL Monocytes # 1.12 H (0.20-1.00) X 10*3/uL Eosinophils # 0 L (0.04-0.35) X 10*3/uL NRBC/100 WBC Diff 0.1 H (0.0-0.0) /100 WBCS PT (9.0-12.0) sec INR (<1.2) D-Dimer (<0.60) mg/L FEU Sodium 135 L (137-145) mmol/L Chloride 109 H (98-107) mmol/L Carbon Dioxide 20 L (22-30) mmol/L BUN 21 H (9-20) mg/dL Glucose 152 H (74-99) mg/dL POC Glucose (mg/dL) 154 H (75-99) mg/dL Lactate Dehydrogenase (120-246) U/L C-Reactive Protein 50.5 H (0.0-0.8) mg/dL Total Protein 5.7 L (6.3-8.2) g/dL Albumin 2.9 L (3.5-5.0) g/dL Procalcitonin (0.02-0.09) ng/mL 10/24/20 10/24/20 10/24/20 Range/Units 05:25 05:25 07:07 WBC (4.50-10.00) X 10*3/uL RBC (4.40-5.60) X 10*6/uL Hgb (13.0-17.0) g/dL Hct (39.6-50.0) % MCH (27.0-32.0) pg MCHC (32.0-37.0) g/dL RDW (11.5-14.5) % MPV (9.5-12.2) fL Absolute Nucleated RBC (0.00-0.00) X 10*3/uL Immature Gran # (0.00-0.04) X 10*3/uL Monocytes # (0.20-1.00) X 10*3/uL Eosinophils # (0.04-0.35) X 10*3/uL NRBC/100 WBC Diff (0.0-0.0) /100 WBCS PT 26.7 H (9.0-12.0) sec INR 2.8 H (<1.2) D-Dimer 8.06 H (<0.60) mg/L FEU Sodium (137-145) mmol/L Chloride (98-107) mmol/L Carbon Dioxide (22-30) mmol/L BUN (9-20) mg/dL Glucose (74-99) mg/dL POC Glucose (mg/dL) 125 H (75-99) mg/dL Lactate Dehydrogenase (120-246) U/L C-Reactive Protein (0.0-0.8) mg/dL Total Protein (6.3-8.2) g/dL Albumin (3.5-5.0) g/dL Procalcitonin 0.12 H (0.02-0.09) ng/mL 10/24/20 Range/Units 11:15 WBC (4.50-10.00) X 10*3/uL RBC (4.40-5.60) X 10*6/uL Hgb (13.0-17.0) g/dL Hct (39.6-50.0) % MCH (27.0-32.0) pg MCHC (32.0-37.0) g/dL RDW (11.5-14.5) % MPV (9.5-12.2) fL Absolute Nucleated RBC (0.00-0.00) X 10*3/uL Immature Gran # (0.00-0.04) X 10*3/uL Monocytes # (0.20-1.00) X 10*3/uL Eosinophils # (0.04-0.35) X 10*3/uL NRBC/100 WBC Diff (0.0-0.0) /100 WBCS PT (9.0-12.0) sec INR (<1.2) D-Dimer (<0.60) mg/L FEU Sodium (137-145) mmol/L Chloride (98-107) mmol/L Carbon Dioxide (22-30) mmol/L BUN (9-20) mg/dL Glucose (74-99) mg/dL POC Glucose (mg/dL) 161 H (75-99) mg/dL Lactate Dehydrogenase (120-246) U/L C-Reactive Protein (0.0-0.8) mg/dL Total Protein (6.3-8.2) g/dL Albumin (3.5-5.0) g/dL Procalcitonin (0.02-0.09) ng/mL Microbiology - Last 24 Hours (Table) 10/23/20 16:10 Stool Culture - Preliminary Stool 10/22/20 17:20 Blood Culture - Preliminary Blood No Growth after 24 hours 10/22/20 17:07 Blood Culture - Preliminary Blood No Growth after 24 hours Assessment and Plan (1) COVID-19 Narrative/Plan: Pulm and IM managing Pt at higher risk for coagulopathy Current Visit: Yes Status: Acute Priority: High Code(s): U07.1 - COVID-19 SNOMED Code(s): 363169104 (2) Lupus anticoagulant positive Narrative/Plan: Diagnosed at last month visit after work up when pt presented with coagulopathy of unknown origin. With this diagnosis, INR is going to be falsely elevated. Agree with full dose anticoagulation with lovenox. Current Visit: Yes Status: Acute Priority: High Code(s): R76.0 - RAISED ANTIBODY TITER SNOMED Code(s): 61310830 (3) Chronic lymphocytic leukemia not having achieved remission Narrative/Plan: Pt WBC/ALC 40-60/70-80. Currently stable WBC/ALC. Pt is on observation only 13q deletion, monosomy 13 on recent FISH studies. No acute intervention Immunoglobulin levels ordered. Pt is at high risk for hypogammoglobulinemia Current Visit: Yes Status: Chronic Priority: Medium Code(s): C91.10 - CHRONIC LYMPHOCYTIC LEUK OF B-CELL TYPE NOT ACHIEVE REMIS SNOMED Code(s): 78123990 (4) Thoracic lymphadenopathy Narrative/Plan: Pt has Hx of LDN in chest. Acute resp illness likely contributing. F/U with Dr. Chen after discharge and covid treatment Current Visit: No Status: Chronic Priority: Medium Code(s): R59.0 - LOCALIZED ENLARGED LYMPH NODES SNOMED Code(s): 964693665 Plan: Case discussed with Pulmonary. Agree with full dose anticoagulation with lupus anticoag + and acute covid illness. Close monitoring for bleeding, CBC/Hgb monitoring.
[2020-10-24 16:47] LABS: Glucose,Whole Blood 220 mg/dL (75-99)
[2020-10-24 20:42] LABS: Glucose,Whole Blood 182 mg/dL (75-99)
[2020-10-24] MEDS: CYCLOBENZAPRINE 10 MG TAB PO SCH (20:54)
[2020-10-24] MEDS: MELATONIN 5 MG TABLET PO SCH (20:55)
--- NOTE | 2020-10-24 22:42 | P.PN ---
Progress Note - Text Progress Note Date: 10/24/20 Chief Complaint: Not feeling well History of presenting complaint: This is a pleasant 60-year-old patient of Dr. Renny Masters. Chronic stable medical conditions include anxiety depression, GERD, COPD, known CLL with a baseline count running around 50. Follow[address] Faulkner. Positive lupus anticoagulant Patient now presents feeling unwell about 5 years ago. Had some diarrhea. Subsequently started feeling more weak and tired. The headache body aches. No change in taste or smell. Throat cough with clear phlegm. Having chills. No fever. Episode of dark stool. Patient tested positive for Coronavirus in the ER. Admitted with COVID 19 pneumonia. Started on Remdesivir. Decadron. Vitamin C vitamin D. Zinc. Lovenox. Today-sitting up. Slightly tired. Eating well. Some shortness of breath. Review of systems: Was done for constitutional, cardiovascular, GI, pulmonary. relevant finding as above Active Medications Albuterol Sulfate (Albuterol Hfa Inhaler) 2 puff INHALATION RT-Q4H [facility] Last Admin: 10/24/20 20:18 Dose: 2 puff Documented by: Ascorbic Acid (Ascorbic Acid 500 Mg Tab) 1,000 mg PO DAILY [facility] Last Admin: 10/24/20 07:56 Dose: 1,000 mg Documented by: Aspirin (Aspirin 325 Mg Tab) 325 mg PO DAILY [facility] Last Admin: 10/24/20 07:56 Dose: 325 mg Documented by: Bismuth Subsalicylate (Bismuth Subsalicylate 4,192 Mg/240 Ml Bottle) 262 mg PO Q6H PRN PRN Reason: GI Upset Budesonide/Formoterol Fumarate (Symbicort 160-4.5 Mcg Inhaler) 2 puff INHALATION RT-BID [facility] Last Admin: 10/24/20 20:26 Dose: 2 puff Documented by: Chlorhexidine Gluconate (Chlorhexidine Gluconate 15 Ml Cup) 15 ml MUCOUS MEM B ID [facility] Last Admin: 10/24/20 21:49 Dose: 15 ml Documented by: Cholecalciferol (Cholecalciferol 25 Mcg (1000 Iu) Tablet) 25 mcg PO DAILY [facility] Last Admin: 10/24/20 07:55 Dose: 25 mcg Documented by: Clonazepam (Clonazepam 0.5 Mg Tab) 0.5 mg PO BID PRN PRN Reason: Anxiety Last Admin: 10/23/20 04:07 Dose: 0.5 mg Documented by: Cyclobenzaprine HCl (Cyclobenzaprine 10 Mg Tab) 10 mg PO HS [facility] Last Admin: 10/24/20 20:54 Dose: 10 mg Documented by: Dexamethasone Sodium Phosphate (Dexamethasone Sod Phosphate 10 Mg/Ml 1 Ml Vial) 6 mg IV DAILY [facility] Last Admin: 10/24/20 07:55 Dose: 6 mg Documented by: Enoxaparin Sodium (Enoxaparin 60 Mg/0.6 Ml Syringe) 60 mg SQ Q12HR [facility] Last Admin: 10/24/20 20:55 Dose: 60 mg Documented by: Famotidine (Famotidine 20 Mg Tab) 20 mg PO BID [facility] Last Admin: 10/24/20 20:54 Dose: 20 mg Documented by: Ferrous Sulfate (Ferrous Sulfate 325 Mg Tab) 325 mg PO DAILY [facility] Last Admin: 10/24/20 07:55 Dose: 325 mg Documented by: Remdesivir 100 mg/ Sodium (Chloride) 250 mls @ 250 mls/hr IVPB DAILY@1100 [facility] Stop: 10/27/20 11:59 Last Admin: 10/24/20 11:42 Dose: 250 mls/hr Documented by: Levofloxacin (Levofloxacin 500 Mg Tab) 500 mg PO DAILY [facility] Stop: 10/30/20 09:01 Last Admin: 10/24/20 07:56 Dose: 500 mg Documented by: Melatonin (Melatonin 5 Mg Tablet) 5 mg PO [facility] Last Admin: 10/24/20 20:55 Dose: 5 mg Documented by: Paroxetine HCl (Paroxetine 20 Mg Tab) 20 mg PO DAILY [facility] Last Admin: 10/24/20 07:56 Dose: 20 mg Documented by: Tiotropium [place] (Tiotropium 2.5 Mcg Inhaler) 2 puff INHALATION RT-DAILY [facility] Last Admin: 10/24/20 08:25 Dose: 2 puff Documented by: Zinc Sulfate (Zinc Sulfate 220 Mg Cap) 220 mg PO DAILY [facility] Last Admin: 10/24/20 07:56 Dose: 220 mg Documented by: Past medical history to include: Chronic lymphoid leukemia, COPD, anxiety, GERD, lupus anticoagulant positive Social history: Patient smoked about a pack and half a day for close to 42 years stopped recently. Lives alone. Employed for [employer]-m[employer] Family history: Reviewed, noncontributory to presentation Physical examination: VITAL SIGNS: 97.3, 87, 18, 107/70, 95% room air GENERAL: BMI 21.5, today up, looking better PSYCH: Alert and oriented x3; mood and affect normal. NEUROLOGICAL: Cranial nerves grossly intact; no facial asymmetry, moving all 4 limbs Rest of the exam as per pulmonary and nursing INVESTIGATIONS, reviewed in the clinical context: October 24: White count 40.5 hemoglobin 9.6 platelets 310 potassium 4.4 creatinine 0.85 d-dimer 8.06 CRP 50.5 White count 35 hemoglobin 11.7 platelets 303 lymphocytes 32.9 Pro time 26 PTT 61.5 d-dimer 8.6 potassium 4.6 sodium 1:30 creatinine 1.2 to CRP 11 EKG tracing personally reviewed by me-sinus rhythm Chest x-ray film personally reviewed by me-bilateral consultation prominent Coronavirus [PCR]-detected Previous testing: Lupus anticoagulant APTT increased at 104 2% anticoagulant PTT mix increased at 71 Diluted Eric viper venom increased at 58 Lupus Hexagonal phase positive LA DRVVT confirm-negative DRVVT 50:50-increased at 58 Rheumatoid factor XII Cyclical Citra Obrien peptide IgG 7.6 Cyclic central peptide positive ANAs screen [place]NA[place] [id number] In a pattern that if oral Double-stranded DNA antibody negative Assessment and plan: -COVID 19 pneumonia. Patient does not any significant hypoxia. Initial pulse ox 98% room air. Given Remdesivir. Also Decadron vitamin C vitamin D3 zinc. Also convalescent plasma ordered. Subcu Lovenox. Patient CRP is running high. Give high-dose steroids. -Chronic lymphocytic leukemia -GERD -Anxiety depression not otherwise specified -Positive lupus anticoagulant. High risk of coagulation. Therapeutic dose of Lovenox. Follow CRP/d-dimer
[2020-10-25] MEDS: ALBUTEROL HFA INHALER INHALATION SCH ×6 (01:13→21:38)
[2020-10-25 06:48] LABS: Glucose,Whole Blood 144 mg/dL (75-99)
[2020-10-25] MEDS: SYMBICORT 160-4.5 MCG INHALER INHALATION SCH ×2 (07:18→21:38)
[2020-10-25] MEDS: TIOTROPIUM 2.5 MCG INHALER INHALATION SCH (07:19)
[2020-10-25 07:23] LABS: C Reactive Protein 33.1 mg/L (<10.0)
[2020-10-25 07:34] LABS: D-Dimer 7.92 mg/L FEU (<0.60)
[2020-10-25] MEDS: LEVOFLOXACIN 500 MG TAB PO SCH (08:21)
[2020-10-25] MEDS: ZINC SULFATE 220 MG CAP PO SCH (08:21)
[2020-10-25] MEDS: DEXAMETHASONE SOD PHOSPHATE 10 MG/ML 1 ML VIAL IV SCH ×2 (08:21→20:33)
[2020-10-25] MEDS: ASCORBIC ACID 500 MG TAB PO SCH (08:21)
[2020-10-25] MEDS: ASPIRIN 325 MG TAB PO SCH (08:21)
[2020-10-25] MEDS: CHLORHEXIDINE GLUCONATE 15 ML CUP MUCOUS MEM SCH ×2 (08:21→21:58)
[2020-10-25] MEDS: ENOXAPARIN 60 MG/0.6 ML SYRINGE SQ SCH ×2 (08:21→20:34)
[2020-10-25] MEDS: CHOLECALCIFEROL 25 MCG (1000 IU) TABLET PO SCH (08:21)
[2020-10-25] MEDS: FAMOTIDINE 20 MG TAB PO SCH ×2 (08:21→20:32)
[2020-10-25] MEDS: FERROUS SULFATE 325 MG TAB PO SCH (08:21)
[2020-10-25] MEDS: PARoxetine 20 MG TAB PO SCH (08:21)
[2020-10-25 10:57] LABS: Basophils # (A) 0.08 X 10*3/uL (0.00-0.10); Basophils % (A) 0.2 %; Eosinophils # (A) 0 X 10*3/uL (0.04-0.35); Eosinophils % (A) 0 %; HCT 31.1 % (39.6-50.0); HGB 9.5 g/dL (13.0-17.0); Lymphocytes % (A) 81.4 %; MCHC 30.5 g/dL (32.0-37.0); MCV 81.8 fL (80.0-97.0); Mean Platelet Volume 9.1 fL (9.5-12.2); Monocytes # (A) 1.13 X 10*3/uL (0.20-1.00); Monocytes % (A) 2.6 %; Neutrophils # (A) 6.65 X 10*3/uL (1.80-7.70); Neutrophils % (A) 15.2 %; Platelet Count 372 X 10*3/uL (140-440); RDW 21.5 % (11.5-14.5); WBC 43.71 X 10*3/uL (4.50-10.00)
[2020-10-25 10:58] LABS: Anisocytosis (M) 2+
[2020-10-25 11:30] LABS: Glucose,Whole Blood 211 mg/dL (75-99)
[2020-10-25 12:01] LABS: Ferritin 165.2 ng/mL (22.0-322.0)
--- NOTE | 2020-10-25 12:17 | P.PN ---
Subjective Progress Note Date: 10/25/20 60-year-old male with a history of chronic lymphocytic leukemia, and COPD, who presents to the emergency department via EMS, on 10/22/2020, at 1648 in the afternoon. The patient came in complaining of shortness of breath. In addition, he did have a cough, that was mostly nonproductive. He was not getting any better at home and decided to come in to be evaluated. He denied any fever or chills, chest pain or chest discomfort. He was complaining of significant and progressive weakness. In addition, the patient was admitted to [facility]. The patient also tested positive for COVID 19 infection, which may very well explain his symptoms. His chest x-ray showed some interstitial patchy densities, mostly in the left lung, when compared to a previous chest x-ray done on September 23 of this year. He was evaluated by Dr. Salgado in the emergency department and was admitted with a diagnosis of possible COVID 19 pneumonia, COPD exacerbation, as well as bronchitis, and leukemia. Currently, the patient's on O2 at 2 L. His symptoms started about 3-1/2-4 days ago. Hence, we placed the patient on remdesivir, Decadron, vitamin C, vitamin D3, zinc, Pepcid, and melatonin. We also ordered him 1 unit convalescent plasma. 10/24/2019 over seeing the patient for a follow-up regarding Covid 19 related pneumonia. The patient's comorbidities including COPD and CLL. The patient also has a positive lupus anticoagulant. The patient was having increased cough and he tested positive for coronary via/Covid 19 infection on 10/22/2020. Currently he is admitted with some limited pneumonia and the patient is currently receiving a combination of treatment including remdesivir, Decadron, vitamin C, vitamin D3, zinc, Pepcid, and melatonin., And he also received 1 unit convalescent plasma.currently is on 6 mg of Decadron. He is afebrile. He remains on 2 L of oxygen by nasal cannula. His inflammatory markers showed a CRP level of 15, his LDH level was at 2 MESSI and his pro-calcitonin level was low at 0.12. On 10/25/2020, the patient is being seen for a follow-up. Is currently on room air oxygen. He is currently on 3 L of oxygen by nasal cannula. He is resting comfortably in bed. Based on today's blood work, his CRP level is down to 33, pro-calcitonin from yesterday was 0.12, his LDH level from few days ago was 218, his d-dimer is still elevated at 7.92. His white cell count is 43 consistent with his CLL. He is day #3 Remdesivir , in addition to Decadron and vitamin C and zinc and Pepcid and melatonin. He also received a unit of convalescent plasma. He reports improvement in his energy level. No nausea. No vomiting. No diarrhea. No abdominal pain. No chest pain. No other new complaints otherwise for now. The follow-up chest x-rays to be obtained tomorrow. Objective - Vital Signs Vital signs: Vital Signs Temp 97.5 F L 10/25/20 10:00 Pulse 80 10/25/20 10:00 Resp 18 10/25/20 10:00 BP 107/65 10/25/20 10:00 Pulse Ox 94 L 10/25/20 10:00 Intake & Output 10/24/20 10/25/20 10/25/20 18:59 06:59 18:59 Intake Total 250 Output Total 1 Balance 249 Intake: Intake, IV Titration 250 Amount Remdesivir 100 mg In 250 Sodium Chloride 0.9% 250 ml @ 250 mls/hr IVPB DAILY@1100 [facility] Rx#: [id number] Output: Stool 1 Other: Voiding Method Toilet # Voids 3 2 - Exam No acute distress, oriented 3. Pale. Nasal O2 in place at 3 L. No conversational dyspnea, use of accessory muscles, or audible wheezing. HEENT examination is grossly unremarkable. Mucous membranes are moist. Neck supple. Full range of motion. No adenopathy thyromegaly or neck vein distention. Cardiovascular examination reveals regular rhythm rate. S1-S2 normal. No S3 or S4. No discernible murmur noted. Lungs reveal mostly clear breath sounds. A few scattered rhonchi are noted. No wheezes or crackles. Breath sounds equal bilaterally. Abdomen soft bowel sounds are heard. No masses or tenderness. Extremities are intact. No cyanosis clubbing or edema. Skin is without rash or lesion. Neurologic examination is brief but nonfocal. - Labs CBC & Chem 7: 10/25/20 05:52 10/24/20 05:25 Labs: Abnormal Lab Results - Last 24 Hours (Table) 10/24/20 10/24/20 10/24/20 Range/Units 05:25 05:25 16:43 WBC (4.50-10.00) X 10*3/uL RBC (4.40-5.60) X 10*6/uL Hgb (13.0-17.0) g/dL Hct (39.6-50.0) % MCH (27.0-32.0) pg MCHC (32.0-37.0) g/dL RDW (11.5-14.5) % MPV (9.5-12.2) fL Absolute Nucleated RBC (0.00-0.00) X 10*3/uL Immature Gran # (0.00-0.04) X 10*3/uL Lymphocytes # 32.44 H (0.90-5.00) X 10*3/uL Monocytes # (0.20-1.00) X 10*3/uL Eosinophils # (0.04-0.35) X 10*3/uL NRBC/100 WBC Diff (0.0-0.0) /100 WBCS D-Dimer (<0.60) mg/L FEU POC Glucose (mg/dL) 220 H (75-99) mg/dL C-Reactive Protein (<10.0) mg/L IgM 443.0 H (40.0-280.0) mg/dL 10/24/20 10/25/20 10/25/20 Range/Units 20:41 05:52 05:52 WBC 43.71 H (4.50-10.00) X 10*3/uL RBC 3.80 L (4.40-5.60) X 10*6/uL Hgb 9.5 L (13.0-17.0) g/dL Hct 31.1 L (39.6-50.0) % MCH 25.0 L (27.0-32.0) pg MCHC 30.5 L (32.0-37.0) g/dL RDW 21.5 H (11.5-14.5) % MPV 9.1 L (9.5-12.2) fL Absolute Nucleated RBC 0.03 H (0.00-0.00) X 10*3/uL Immature Gran # 0.25 H (0.00-0.04) X 10*3/uL Lymphocytes # (0.90-5.00) X 10*3/uL Monocytes # 1.13 H (0.20-1.00) X 10*3/uL Eosinophils # 0 L (0.04-0.35) X 10*3/uL NRBC/100 WBC Diff 0.1 H (0.0-0.0) /100 WBCS D-Dimer (<0.60) mg/L FEU POC Glucose (mg/dL) 182 H (75-99) mg/dL C-Reactive Protein 33.1 H (<10.0) mg/L IgM (40.0-280.0) mg/dL 10/25/20 10/25/20 10/25/20 Range/Units 05:52 06:43 11:27 WBC (4.50-10.00) X 10*3/uL RBC (4.40-5.60) X 10*6/uL Hgb (13.0-17.0) g/dL Hct (39.6-50.0) % MCH (27.0-32.0) pg MCHC (32.0-37.0) g/dL RDW (11.5-14.5) % MPV (9.5-12.2) fL Absolute Nucleated RBC (0.00-0.00) X 10*3/uL Immature Gran # (0.00-0.04) X 10*3/uL Lymphocytes # (0.90-5.00) X 10*3/uL Monocytes # (0.20-1.00) X 10*3/uL Eosinophils # (0.04-0.35) X 10*3/uL NRBC/100 WBC Diff (0.0-0.0) /100 WBCS D-Dimer 7.92 H (<0.60) mg/L FEU POC Glucose (mg/dL) 144 H 211 H (75-99) mg/dL C-Reactive Protein (<10.0) mg/L IgM (40.0-280.0) mg/dL Microbiology - Last 24 Hours (Table) 10/22/20 17:20 Blood Culture - Preliminary Blood No Growth after 48 hours 10/22/20 17:07 Blood Culture - Preliminary Blood No Growth after 48 hours Assessment and Plan Plan: 1 COVID 19 infection, with possible developing/mild pneumonia/pneumonitis, and mild hypoxemic respiratory failure. She has mild hypoxic respiratory failure and currently is on 3 L by nasal cannula. He is on a combination of day #3 of Remdesivir, Decadron, zinc oxide, vitamin C, vitamin D, melatonin, Pepcid, and he is also receiving a unit of convalescent plasma. Inflammatory markers are not significantly elevated. He does have comorbidities including COPD and CLL. The patient clinically is doing better. 2 COPD, with possible COPD exacerbation. 3 History of chronic lymphocytic leukemia. Patient is being monitored for now regarding his CLL. 4 History of pleural effusion. 5 History of gastroesophageal reflux disease. 6 Prior history of heavy tobacco use. 7 History of chronic anemia. 8 Lupus anticoagulant positive, with elevation of the dilation protocol including PT/INR. No history of any DVTs or pulmonary emboli. Plan: Continue same treatment. Monitor oxygenation. Monitor inflammatory markers. Repeat chest x-ray tomorrow. Repeat inflammatory markers including LDH, CRP and d-dimer as for tomorrow.. Continue Lovenox, his d-dimer is at 8 and the patient has a positive lupus anticoagulant. Hematology recommended a therapeutic dose of Lovenox and this will be continued for now. We'll continue to follow.
[2020-10-25] MEDS: REMDESIVIR 100 MG in SODIUM CHLORIDE 0.9% 250 ML IVPB SCH (12:18)
[2020-10-25 12:39] LABS: % Iron Saturation 18.86 (15.00-50.00); African American GFR (CKD) 105.7 (60.0-200.0); Albumin 3.6 g/dL (3.80-4.90); Albumin/Globulin Ratio 2.12 (1.60-3.17); Anion Gap 8.2 mmol/L (4.00-12.00); BUN/Creat Ratio 28.89 Ratio (12.00-20.00); Calcium 8.6 mg/dL (8.7-10.3); Carbon Dioxide 21.8 mmol/L (21.6-31.8); Globulin 1.7 g/dL (1.6-3.3); Non-African American GFR(CKD) 91.2 (60.0-200.0); Potassium 4.4 mmol/L (3.5-5.5); Total Bilirubin 0.5 mg/dL (0.3-1.2); Total Protein 5.3 g/dL (6.2-8.2)
--- NOTE | 2020-10-25 15:04 | P.PN ---
Subjective Progress Note Date: 10/25/20 Principal diagnosis: CLL, lupus anticoagulant, covid infection Patient states he is feeling a little bit better today, he doesn't feel as dependent on the oxygen, respirations less labored,he denies any bleeding Objective - Vital Signs Vital signs: Vital Signs Temp 97.5 F L 10/25/20 10:00 Pulse 80 10/25/20 10:00 Resp 18 10/25/20 10:00 BP 107/65 10/25/20 10:00 Pulse Ox 94 L 10/25/20 10:00 Intake & Output 10/24/20 10/25/20 10/25/20 18:59 06:59 18:59 Intake Total 250 Output Total 1 Balance 249 Intake: Intake, IV Titration 250 Amount Remdesivir 100 mg In 250 Sodium Chloride 0.9% 250 ml @ 250 mls/hr IVPB DAILY@1100 [facility] Rx#: [id number] Output: Stool 1 Other: Voiding Method Toilet # Voids 3 2 - Constitutional General appearance: Present: average body habitus, cooperative, no acute distress - EENT Eyes: Present: anicteric sclerae, EOMI ENT: Present: hearing grossly normal - Neurologic Neurologic: Present: CNII-XII intact - Musculoskeletal Musculoskeletal: Present: strength equal bilaterally - Psychiatric Psychiatric: Present: A&O x's 3, appropriate affect, intact judgment & insight - Labs CBC & Chem 7: 10/25/20 05:52 10/25/20 05:52 Labs: Abnormal Lab Results - Last 24 Hours (Table) 10/24/20 10/24/20 10/25/20 Range/Units 16:43 20:41 05:52 WBC (4.50-10.00) X 10*3/uL RBC (4.40-5.60) X 10*6/uL Hgb (13.0-17.0) g/dL Hct (39.6-50.0) % MCH (27.0-32.0) pg MCHC (32.0-37.0) g/dL RDW (11.5-14.5) % MPV (9.5-12.2) fL Absolute Nucleated RBC (0.00-0.00) X 10*3/uL Immature Gran # (0.00-0.04) X 10*3/uL Monocytes # (0.20-1.00) X 10*3/uL Eosinophils # (0.04-0.35) X 10*3/uL NRBC/100 WBC Diff (0.0-0.0) /100 WBCS Haptoglobin (31.2-198.0) mg/dL D-Dimer (<0.60) mg/L FEU BUN/Creatinine Ratio 28.89 H (12.00-20.00) Ratio Glucose 136 H (70-110) mg/dL POC Glucose (mg/dL) 220 H 182 H (75-99) mg/dL Calcium 8.6 L (8.7-10.3) mg/dL Iron 33 L (65-175) ug/dL TIBC 175 L (228-460) ug/dL C-Reactive Protein 33.1 H (<10.0) mg/L Total Protein 5.3 L (6.2-8.2) g/dL Albumin 3.60 L (3.80-4.90) g/dL Vitamin B12 1377.0 H (200.0-944.0) pg/mL 10/25/20 10/25/20 10/25/20 Range/Units 05:52 05:52 05:52 WBC 43.71 H (4.50-10.00) X 10*3/uL RBC 3.80 L (4.40-5.60) X 10*6/uL Hgb 9.5 L (13.0-17.0) g/dL Hct 31.1 L (39.6-50.0) % MCH 25.0 L (27.0-32.0) pg MCHC 30.5 L (32.0-37.0) g/dL RDW 21.5 H (11.5-14.5) % MPV 9.1 L (9.5-12.2) fL Absolute Nucleated RBC 0.03 H (0.00-0.00) X 10*3/uL Immature Gran # 0.25 H (0.00-0.04) X 10*3/uL Monocytes # 1.13 H (0.20-1.00) X 10*3/uL Eosinophils # 0 L (0.04-0.35) X 10*3/uL NRBC/100 WBC Diff 0.1 H (0.0-0.0) /100 WBCS Haptoglobin 244.0 H (31.2-198.0) mg/dL D-Dimer 7.92 H (<0.60) mg/L FEU BUN/Creatinine Ratio (12.00-20.00) Ratio Glucose (70-110) mg/dL POC Glucose (mg/dL) (75-99) mg/dL Calcium (8.7-10.3) mg/dL Iron (65-175) ug/dL TIBC (228-460) ug/dL C-Reactive Protein (<10.0) mg/L Total Protein (6.2-8.2) g/dL Albumin (3.80-4.90) g/dL Vitamin B12 (200.0-944.0) pg/mL 10/25/20 10/25/20 Range/Units 06:43 11:27 WBC (4.50-10.00) X 10*3/uL RBC (4.40-5.60) X 10*6/uL Hgb (13.0-17.0) g/dL Hct (39.6-50.0) % MCH (27.0-32.0) pg MCHC (32.0-37.0) g/dL RDW (11.5-14.5) % MPV (9.5-12.2) fL Absolute Nucleated RBC (0.00-0.00) X 10*3/uL Immature Gran # (0.00-0.04) X 10*3/uL Monocytes # (0.20-1.00) X 10*3/uL Eosinophils # (0.04-0.35) X 10*3/uL NRBC/100 WBC Diff (0.0-0.0) /100 WBCS Haptoglobin (31.2-198.0) mg/dL D-Dimer (<0.60) mg/L FEU BUN/Creatinine Ratio (12.00-20.00) Ratio Glucose (70-110) mg/dL POC Glucose (mg/dL) 144 H 211 H (75-99) mg/dL Calcium (8.7-10.3) mg/dL Iron (65-175) ug/dL TIBC (228-460) ug/dL C-Reactive Protein (<10.0) mg/L Total Protein (6.2-8.2) g/dL Albumin (3.80-4.90) g/dL Vitamin B12 (200.0-944.0) pg/mL Microbiology - Last 24 Hours (Table) 10/22/20 17:20 Blood Culture - Preliminary Blood No Growth after 48 hours 10/22/20 17:07 Blood Culture - Preliminary Blood No Growth after 48 hours Assessment and Plan (1) COVID-19 Narrative/Plan: Pulm and IM managing Pt at higher risk for coagulopathy Current Visit: Yes Status: Acute Priority: High Code(s): U07.1 - COVID-19 SNOMED Code(s): 319584751 (2) Lupus anticoagulant positive Narrative/Plan: Diagnosed at last month visit after work up when pt presented with coagulopathy of unknown origin. With this diagnosis, INR is going to be falsely elevated. Agree with full dose anticoagulation with lovenox. Current Visit: Yes Status: Acute Priority: High Code(s): R76.0 - RAISED ANTIBODY TITER SNOMED Code(s): 90803182 (3) Chronic lymphocytic leukemia not having achieved remission Narrative/Plan: Pt WBC/ALC 40-60/70-80. Currently stable WBC/ALC. 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 No acute intervention Immunoglobulin levels adequate, no hypogammoglobulinemia Current Visit: Yes Status: Chronic Priority: Medium Code(s): C91.10 - CHRONIC LYMPHOCYTIC LEUK OF B-CELL TYPE NOT ACHIEVE REMIS SNOMED Code(s): 53338220 (4) Thoracic lymphadenopathy Narrative/Plan: Pt has Hx of LDN in chest. Acute resp illness likely contributing. F/U with Dr. Chen after discharge and covid recovery Current Visit: No Status: Chronic Priority: Medium Code(s): R59.0 - LOCALIZED ENLARGED LYMPH NODES SNOMED Code(s): 453798419 Plan: Agree with full dose anticoagulation with lupus anticoag + asa with acute covid illness and lupus antocoag +. Close monitoring for bleeding, CBC/Hgb monitoring ongoing.
[2020-10-25 15:55] LABS: INR 2.8 (<1.2); Prothrombin Time 26.9 sec (9.0-12.0)
[2020-10-25 17:00] LABS: Glucose,Whole Blood 195 mg/dL (75-99)
[2020-10-25] MEDS: CYCLOBENZAPRINE 10 MG TAB PO SCH (20:31)
[2020-10-25] MEDS: MELATONIN 5 MG TABLET PO SCH (20:31)
--- NOTE | 2020-10-25 20:43 | P.PN ---
Progress Note - Text Progress Note Date: 10/25/20 Chief Complaint: Not feeling well History of presenting complaint: This is a pleasant 60-year-old patient of Dr. Renny Masters. Chronic stable medical conditions include anxiety depression, GERD, COPD, known CLL with a baseline count running around 50. Follow[address] Faulkner. Positive lupus anticoagulant Patient now presents feeling unwell about 5 years ago. Had some diarrhea. Subsequently started feeling more weak and tired. The headache body aches. No change in taste or smell. Throat cough with clear phlegm. Having chills. No fever. Episode of dark stool. Patient tested positive for Coronavirus in the ER. Admitted with COVID 19 pneumonia. Started on Remdesivir. Decadron. Vitamin C vitamin D. Zinc. Lovenox. Today-Feeling a bit better.oral intake good. Some shortness of breath. Slight cough. Has been up in a chair. Review of systems: Was done for constitutional, cardiovascular, GI, pulmonary. relevant finding as above Active Medications Albuterol Sulfate (Albuterol Hfa Inhaler) 2 puff INHALATION RT-Q4H [facility] Last Admin: 10/25/20 16:10 Dose: 2 puff Documented by: Ascorbic Acid (Ascorbic Acid 500 Mg Tab) 1,000 mg PO DAILY [facility] Last Admin: 10/25/20 08:21 Dose: 1,000 mg Documented by: Aspirin (Aspirin 325 Mg Tab) 325 mg PO DAILY [facility] Last Admin: 10/25/20 08:21 Dose: 325 mg Documented by: Bismuth Subsalicylate (Bismuth Subsalicylate 4,192 Mg/240 Ml Bottle) 262 mg PO Q6H PRN PRN Reason: GI Upset Budesonide/Formoterol Fumarate (Symbicort 160-4.5 Mcg Inhaler) 2 puff INHALATION RT-BID [facility] Last Admin: 10/25/20 07:18 Dose: 2 puff Documented by: Chlorhexidine Gluconate (Chlorhexidine Gluconate 15 Ml Cup) 15 ml MUCOUS MEM BID [facility] Last Admin: 10/25/20 08:21 Dose: 15 ml Documented by: Cholecalciferol (Cholecalciferol 25 Mcg (1000 Iu) Tablet) 25 mcg PO DAILY [facility] Last Admin: 10/25/20 08:21 Dose: 25 mcg Documented by: Clonazepam (Clonazepam 0.5 Mg Tab) 0.5 mg PO BID PRN PRN Reason: Anxiety Last Admin: 10/23/20 04:07 Dose: 0.5 mg Documented by: Cyclobenzaprine HCl (Cyclobenzaprine 10 Mg Tab) 10 mg PO [facility] Last Admin: 10/25/20 20:31 Dose: 10 mg Documented by: Dexamethasone Sodium Phosphate (Dexamethasone Sod Phosphate 10 Mg/Ml 1 Ml Vial) 6 mg IV BID [facility] Last Admin: 10/25/20 20:33 Dose: 6 mg Documented by: Enoxaparin Sodium (Enoxaparin 60 Mg/0.6 Ml Syringe) 60 mg SQ Q12HR [facility] Last Admin: 10/25/20 20:34 Dose: 60 mg Documented by: Famotidine (Famotidine 20 Mg Tab) 20 mg PO BID [facility] Last Admin: 10/25/20 20:32 Dose: 20 mg Documented by: Ferrous Sulfate (Ferrous Sulfate 325 Mg Tab) 325 mg PO DAILY [facility] Last Admin: 10/25/20 08:21 Dose: 325 mg Documented by: Remdesivir 100 mg/ Sodium (Chloride) 250 mls @ 250 mls/hr IVPB DAILY@1100 [facility] Stop: 10/27/20 11:59 Last Admin: 10/25/20 12:18 Dose: 250 mls/hr Documented by: Levofloxacin (Levofloxacin 500 Mg Tab) 500 mg PO DAILY [facility] Stop: 10/30/20 09:01 Last Admin: 10/25/20 08:21 Dose: 500 mg Documented by: Melatonin (Melatonin 5 Mg Tablet) 5 mg PO [facility] Last Admin: 10/25/20 20:31 Dose: 5 mg Documented by: Paroxetine HCl (Paroxetine 20 Mg Tab) 20 mg PO DAILY [facility] Last Admin: 10/25/20 08:21 Dose: 20 mg Documented by: Tiotropium Blair (Tiotropium 2.5 Mcg Inhaler) 2 puff INHALATION RT-DAILY [facility] Last Admin: 10/25/20 07:19 Dose: 2 puff Documented by: Zinc Sulfate (Zinc Sulfate 220 Mg Cap) 220 mg PO DAILY [facility] Last Admin: 10/25/20 08:21 Dose: 220 mg Documented by: Past medical history to include: Chronic lymphoid leukemia, COPD, anxiety, GERD, lupus anticoagulant positive Social history: Patient smoked about a pack and half a day for close to 42 years stopped recently. Lives alone. Employed for [employer]-m[employer] Family history: Reviewed, noncontributory to presentation Physical examination: VITAL SIGNS:97.5, 80, 18, 107/65, 94% room air GENERAL: laying in bed, looks more comfortable PSYCH: Alert and oriented x3; mood and affect normal. NEUROLOGICAL: Cranial nerves grossly intact; no facial asymmetry, moving all 4 limbs Rest of the exam as per pulmonary and nursing INVESTIGATIONS, reviewed in the clinical context: October 25: White count 43.7 hemoglobin 9.5 d-dimer 7.9 to CRP 33.1 October 24: White count 40.5 hemoglobin 9.6 platelets 310 potassium 4.4 creatinine 0.85 d-dimer 8.06 CRP 50.5 White count 35 hemoglobin 11.7 platelets 303 lymphocytes 32.9 Pro time 26 PTT 61.5 d-dimer 8.6 potassium 4.6 sodium 1:30 creatinine 1.2 to CRP 11 EKG tracing personally reviewed by me-sinus rhythm Chest x-ray film personally reviewed by me-bilateral consultation prominent Coronavirus [PCR]-detected Previous testing: Lupus anticoagulant APTT increased at 104 2% anticoagulant PTT mix increased at 71 Diluted Eric viper venom increased at 58 Lupus Hexagonal phase positive LA DRVVT confirm-negative DRVVT 50:50-increased at 58 Rheumatoid factor XII Cyclical Citra Obrien peptide IgG 7.6 Cyclic central peptide positive ANAs screen [place]NA[place] [id number] In a pattern that if oral Double-stranded DNA antibody negative Assessment and plan: -COVID 19 pneumonia. Patient does not any significant hypoxia. Initial pulse ox 98% room air. Given Remdesivir. , Decadron vitamin C vitamin D3 zinc. , convalescent plasma given. Subcu Lovenox., Give high-dose steroids. -Chronic lymphocytic leukemia -GERD -Anxiety depression not otherwise specified -Positive lupus anticoagulant. High risk of coagulation. Therapeutic dose of L ovenox. doing better. Continue with Remdesivir, steroids, Lovenox. Patient encouraged to use incentive spirometry. sit up in a chair.
[2020-10-26] MEDS: ALBUTEROL HFA INHALER INHALATION SCH ×6 (01:18→20:47)
[2020-10-26 07:03] LABS: Glucose,Whole Blood 123 mg/dL (75-99)
--- NOTE | 2020-10-26 07:50 | XR ---
EXAMINATION TYPE: XR chest 1V DATE OF EXAM: 10/26/2020 COMPARISON: 10/22/2020 HISTORY: 60-year-old male COVID TECHNIQUE: Single frontal view of the chest is obtained. FINDINGS: Heart normal size. Aorta and pulmonary vasculature within normal limits. Patchy peripheral left mid a nd lower lung opacity. Patchy left basilar opacity and trace left effusion. Findings slightly more pr onounced as compared to 10/22/2020. Hyperinflation. IMPRESSION: 1. COPD. 2. Patchy peripheral and basilar interstitial infiltrate on the left has increased from prior exam. 3. Recurrent trace left effusion.
[2020-10-26] MEDS: TIOTROPIUM 2.5 MCG INHALER INHALATION SCH (08:21)
[2020-10-26] MEDS: SYMBICORT 160-4.5 MCG INHALER INHALATION SCH ×2 (08:21→20:47)
[2020-10-26 08:56] LABS: C Reactive Protein 21.5 mg/L (<10.0)
[2020-10-26] MEDS: DEXAMETHASONE SOD PHOSPHATE 10 MG/ML 1 ML VIAL IV SCH ×2 (09:25→20:14)
[2020-10-26] MEDS: CHLORHEXIDINE GLUCONATE 15 ML CUP MUCOUS MEM SCH ×2 (09:25→20:14)
[2020-10-26] MEDS: ASCORBIC ACID 500 MG TAB PO SCH (09:26)
[2020-10-26] MEDS: LEVOFLOXACIN 500 MG TAB PO SCH (09:26)
[2020-10-26] MEDS: ZINC SULFATE 220 MG CAP PO SCH (09:26)
[2020-10-26] MEDS: ASPIRIN 325 MG TAB PO SCH (09:26)
[2020-10-26] MEDS: FERROUS SULFATE 325 MG TAB PO SCH (09:26)
[2020-10-26] MEDS: ENOXAPARIN 60 MG/0.6 ML SYRINGE SQ SCH ×2 (09:27→20:14)
[2020-10-26] MEDS: FAMOTIDINE 20 MG TAB PO SCH ×2 (09:27→20:14)
[2020-10-26] MEDS: PARoxetine 20 MG TAB PO SCH (09:27)
[2020-10-26] MEDS: CHOLECALCIFEROL 25 MCG (1000 IU) TABLET PO SCH (09:27)
[2020-10-26] MEDS: REMDESIVIR 100 MG in SODIUM CHLORIDE 0.9% 250 ML IVPB SCH (09:31)
[2020-10-26 12:05] LABS: Anisocytosis (M) 2+; Basophils # (A) 0.04 X 10*3/uL (0.00-0.10); Basophils % (A) 0.1 %; Eosinophils # (A) 0 X 10*3/uL (0.04-0.35); Eosinophils % (A) 0 %; HCT 34.7 % (39.6-50.0); HGB 10.4 g/dL (13.0-17.0); Lymphocytes # (A) 41.68 X 10*3/uL (0.90-5.00); Lymphocytes % (A) 83.8 %; MCH 24.9 pg (27.0-32.0); Mean Platelet Volume 8.9 fL (9.5-12.2); Monocytes # (A) 1.32 X 10*3/uL (0.20-1.00); Monocytes % (A) 2.7 %; Neutrophils # (A) 6.48 X 10*3/uL (1.80-7.70); Platelet Count 440 X 10*3/uL (140-440); RBC 4.18 X 10*6/uL (4.40-5.60); RDW 22.2 % (11.5-14.5); WBC 49.74 X 10*3/uL (4.50-10.00)
--- NOTE | 2020-10-26 12:49 | CT ---
EXAMINATION TYPE: CT angio chest DATE OF EXAM: 10/26/2020 11:23 AM COMPARISON: 09/23/2020 HISTORY: SOB, Covid positive CT DLP: 249.4 mGycm Automated exposure control for dose reduction was used. CONTRAST: CTA scan of the thorax is performed with IV Contrast, patient injected with 100 mL of Isovue 370, pul monary embolism protocol. . FINDINGS: LUNGS: There is diffuse emphysematous changes. Peripheral areas of subsegmental consolidation are see n throughout the lungs bilaterally. There are small bilateral pleural effusions and basilar suspected compressive atelectasis. Central bronchiectasis basilar bronchiectasis to a mild degree noted. No pn eumothorax. MEDIASTINUM: Shotty adenopathy in the mediastinum. Aorta of normal caliber without evidence of aneury sm. Coronary artery calcification noted. Main pulmonary arteries have a normal enhancement pattern there is no diagnostic evidence of filling defect. There is 1.3 cm right lymphadenopathy hilum. OTHER: Hypertrophic and degenerative changes of the spine. There are numerous small sub-1 cm short a xis lymph nodes in the axilla bilaterally. Correlate with serum analysis. Does the patient have histo ry of leukemia? Also appears to be soft tissue fullness in the upper retroperitoneum periaortic regio n on the right which could represent additional areas of lymphadenopathy. Additionally appears to be increased soft tissue density in the nicko hepatis and peripancreatic region also suspicious for lymp hadenopathy. IMPRESSION: 1. No diagnostic evidence of pulmonary embolism. 2. There is a lower lobe and peripheral areas of subsegmental consolidation which could be associated with early pneumonitis including atypical pneumonia. There is a background of underlying chronic emp hysematous changes. 3. Persistent adenopathy as previously described compatible with the patient's reported history of l eukemia.
--- NOTE | 2020-10-26 13:43 | US ---
EXAMINATION TYPE: US venous doppler duplex LE DATE OF EXAM: 10/26/2020 12:35 PM COMPARISON: NONE CLINICAL HISTORY: leg ache. leg pain SIDE PERFORMED: bilateral TECHNIQUE: The lower extremity deep venous system is examined utilizing real time linear array sonog ruth with graded compression, doppler sonography and color-flow sonography. VESSELS IMAGED: Common Femoral Vein Deep Femoral Vein Greater Saphenous Vein * Femoral Vein Popliteal Vein Small Saphenous Vein * Proximal Calf Veins (* superficial vessels) There is normal flow, compressibility, vascular waveforms. Right Leg: no evidence of DVT Left Leg: no evidence of DVT IMPRESSION: No evident deep venous thrombosis at or above the knees
--- NOTE | 2020-10-26 14:41 | P.PN ---
Subjective Progress Note Date: 10/26/20 60-year-old male with a history of chronic lymphocytic leukemia, and COPD, who presents to the emergency department via EMS, on 10/22/2020, at 1648 in the afternoon. The patient came in complaining of shortness of breath. In addition, he did have a cough, that was mostly nonproductive. He was not getting any better at home and decided to come in to be evaluated. He denied any fever or chills, chest pain or chest discomfort. He was complaining of significant and progressive weakness. In addition, the patient was admitted to [facility]. The patient also tested positive for COVID 19 infection, which may very well explain his symptoms. His chest x-ray showed some interstitial patchy densities, mostly in the left lung, when compared to a previous chest x-ray done on September 23 of this year. He was evaluated by Dr. Salgado in the emergency department and was admitted with a diagnosis of possible COVID 19 pneumonia, COPD exacerbation, as well as bronchitis, and leukemia. Currently, the patient's on O2 at 2 L. His symptoms started about 3-1/2-4 days ago. Hence, we placed the patient on remdesivir, Decadron, vitamin C, vitamin D3, zinc, Pepcid, and melatonin. We also ordered him 1 unit convalescent plasma. 10/24/2019 over seeing the patient for a follow-up regarding Covid 19 related pneumonia. The patient's comorbidities including COPD and CLL. The patient also has a positive lupus anticoagulant. The patient was having increased cough and he tested positive for coronary via/Covid 19 infection on 10/22/2020. Currently he is admitted with some limited pneumonia and the patient is currently receiving a combination of treatment including remdesivir, Decadron, vitamin C, vitamin D3, zinc, Pepcid, and melatonin., And he also received 1 unit convalescent plasma.currently is on 6 mg of Decadron. He is afebrile. He remains on 2 L of oxygen by nasal cannula. His inflammatory markers showed a CRP level of 15, his LDH level was at 2 MESSI and his pro-calcitonin level was low at 0.12. On 10/25/2020, the patient is being seen for a follow-up. Is currently on room air oxygen. He is currently on 3 L of oxygen by nasal cannula. He is resting comfortably in bed. Based on today's blood work, his CRP level is down to 33, pro-calcitonin from yesterday was 0.12, his LDH level from few days ago was 218, his d-dimer is still elevated at 7.92. His white cell count is 43 consistent with his CLL. He is day #3 Remdesivir , in addition to Decadron and vitamin C and zinc and Pepcid and melatonin. He also received a unit of convalescent plasma. He reports improvement in his energy level. No nausea. No vomiting. No diarrhea. No abdominal pain. No chest pain. No other new complaints otherwise for now. The follow-up chest x-rays to be obtained tomorrow. 10/26/2020, the patient is resting comfortably in bed. No new complaints. Is currently on room air oxygen. No other significant events overnight. He is still being treated for his coronavirus/Covid 19 infection. He is on a day #4 of Remdesivir , in addition to Decadron and vitamin C and zinc and Pepcid and melatonin. His white cell count today's 49. Hemoglobin is 10.4. Platelet is at 440. CRP is down to 21 and LDH level is 532. No nausea. No vomiting. Griggs ited diarrhea. No chest pain. No altered mentation. No other significant events overnight. No side effects to the offer treatment. He is still receiving Decadron 6 mg IV every 24 hours. Objective - Vital Signs Vital signs: Vital Signs Temp 97.6 F 10/26/20 13:58 Pulse 95 10/26/20 13:58 Resp 18 10/26/20 13:58 BP 126/70 10/26/20 13:58 Pulse Ox 94 L 10/26/20 13:58 Intake & Output 10/25/20 10/26/20 10/26/20 18:59 06:59 18:59 Other: Voiding Method Toilet # Voids 3 2 - Exam No acute distress, oriented 3. The patient is resting comfortably on room air oxygen. No signs of any respiratory distress Head exam was generally normal. There was no scleral icterus or corneal arcus. Mucous membranes were moist. HEENT examination is grossly unremarkable. Mucous membranes are moist. Neck supple. Full range of motion. No adenopathy thyromegaly or neck vein distention. Cardiovascular examination reveals regular rhythm rate. S1-S2 normal. No S3 or S4. No discernible murmur noted. Lungs reveal mostly clear breath sounds. A few scattered rhonchi are noted. No wheezes or crackles. Breath sounds equal bilaterally. Abdomen soft bowel sounds are heard. No masses or tenderness. Extremities are intact. No cyanosis clubbing or edema. Skin is without rash or lesion. Neurologic examination is brief but nonfocal. - Labs CBC & Chem 7: 10/26/20 06:46 10/25/20 05:52 Labs: Abnormal Lab Results - Last 24 Hours (Table) 10/25/20 10/25/20 10/25/20 Range/Units 05:52 05:52 05:52 WBC (4.50-10.00) X 10*3/uL RBC (4.40-5.60) X 10*6/uL Hgb (13.0-17.0) g/dL Hct (39.6-50.0) % MCH (27.0-32.0) pg MCHC (32.0-37.0) g/dL RDW (11.5-14.5) % MPV (9.5-12.2) fL Absolute Nucleated RBC (0.00-0.00) X 10*3/uL Immature Gran # (0.00-0.04) X 10*3/uL Lymphocytes # 35.60 H (0.90-5.00) X 10*3/uL Monocytes # (0.20-1.00) X 10*3/uL Eosinophils # (0.04-0.35) X 10*3/uL NRBC/100 WBC Diff (0.0-0.0) /100 WBCS PT 26.9 H (9.0-12.0) sec INR 2.8 H (<1.2) D-Dimer (<0.60) mg/L FEU POC Glucose (mg/dL) (75-99) mg/dL C-Reactive Protein (<10.0) mg/L RBC Folate 1,323 H (280 - 791) ng/mL 10/25/20 10/26/20 10/26/20 Range/Units 16:45 06:46 06:46 WBC (4.50-10.00) X 10*3/uL RBC (4.40-5.60) X 10*6/uL Hgb (13.0-17.0) g/dL Hct (39.6-50.0) % MCH (27.0-32.0) pg MCHC (32.0-37.0) g/dL RDW (11.5-14.5) % MPV (9.5-12.2) fL Absolute Nucleated RBC (0.00-0.00) X 10*3/uL Immature Gran # (0.00-0.04) X 10*3/uL Lymphocytes # (0.90-5.00) X 10*3/uL Monocytes # (0.20-1.00) X 10*3/uL Eosinophils # (0.04-0.35) X 10*3/uL NRBC/100 WBC Diff (0.0-0.0) /100 WBCS PT (9.0-12.0) sec INR (<1.2) D-Dimer 4.56 H (<0.60) mg/L FEU POC Glucose (mg/dL) 195 H (75-99) mg/dL C-Reactive Protein 21.5 H (<10.0) mg/L RBC Folate (280 - 791) ng/mL 10/26/20 10/26/20 Range/Units 06:46 07:01 WBC 49.74 H (4.50-10.00) X 10*3/uL RBC 4.18 L (4.40-5.60) X 10*6/uL Hgb 10.4 L (13.0-17.0) g/dL Hct 34.7 L (39.6-50.0) % MCH 24.9 L (27.0-32.0) pg MCHC 30.0 L (32.0-37.0) g/dL RDW 22.2 H (11.5-14.5) % MPV 8.9 L (9.5-12.2) fL Absolute Nucleated RBC 0.04 H (0.00-0.00) X 10*3/uL Immature Gran # 0.22 H (0.00-0.04) X 10*3/uL Lymphocytes # (0.90-5.00) X 10*3/uL Monocytes # 1.32 H (0.20-1.00) X 10*3/uL Eosinophils # 0 L (0.04-0.35) X 10*3/uL NRBC/100 WBC Diff 0.1 H (0.0-0.0) /100 WBCS PT (9.0-12.0) sec INR (<1.2) D-Dimer (<0.60) mg/L FEU POC Glucose (mg/dL) 123 H (75-99) mg/dL C-Reactive Protein (<10.0) mg/L RBC Folate (280 - 791) ng/mL Microbiology - Last 24 Hours (Table) 10/22/20 17:20 Blood Culture - Preliminary Blood No Growth after 72 hours 10/22/20 17:07 Blood Culture - Preliminary Blood No Growth after 72 hours 10/23/20 16:10 Stool Culture - Preliminary Stool Assessment and Plan Plan: 1 COVID 19 infection, with possible developing/mild pneumonia/pneumonitis, and mild hypoxemic respiratory failure. The patient was hypoxic at the time of admission and gradually improved and currently is on room air oxygen. He is not having any significant shortness of breath. He continues to complete his t reatment for coronavirus/covered 19 infection. The patient is on a combination of day #4 of Remdesivir, Decadron, zinc oxide, vitamin C, vitamin D, melatonin, Pepcid, and he is also receiving a unit of convalescent plasma. Inflammatory markers are not significantly elevated. He does have comorbidities including COPD and CLL. The patient clinically is doing better. 2 COPD, with possible COPD exacerbation. 3 History of chronic lymphocytic leukemia. Patient is being monitored for now regarding his CLL. 4 History of pleural effusion. 5 History of gastroesophageal reflux disease. 6 Prior history of heavy tobacco use. 7 History of chronic anemia. 8 Lupus anticoagulant positive, with elevation of the dilation protocol including PT/INR. No history of any DVTs or pulmonary emboli. Plan: Continue same treatment. Monitor oxygenation. Monitor inflammatory markers. Repeat chest x-ray tomorrow. The chest x-ray today shows COPD with some patchy peripheral pulmonary infiltrates and his incision infiltrates in the left along with trace left-sided pleural effusion. Repeat inflammatory markers including LDH, CRP and d-dimer as for tomorrow.. Continue Lovenox, his d-dimer is at 4.56 and the patient has a positive lupus anticoagulant. Hematology recommended a therapeutic dose of Lovenox and this will be continued for now. The patient was given a Doppler of the lower extremities which turned out to be negative and CT of the chest that do not to be negative for pulmonary embolism. This was ordered by hematology oncology. The rationale behind these testing is not clear to me especially that patient was clinically getting better.. I reviewed the results and I reviewed the films and I do not have much to add.
--- NOTE | 2020-10-26 15:33 | P.PN ---
Subjective Progress Note Date: 10/26/20 Principal diagnosis: CLL, lupus anticoagulant, covid infection Patient stable today, still on O2, no bleeding. Objective - Vital Signs Vital signs: Vital Signs Temp 97.6 F 10/26/20 10:00 Pulse 82 10/26/20 10:00 Resp 20 10/26/20 10:00 BP 110/71 10/26/20 10:00 Pulse Ox 95 10/26/20 10:00 Intake & Output 10/25/20 10/26/20 10/26/20 18:59 06:59 18:59 Other: Voiding Method Toilet # Voids 3 2 - Constitutional General appearance: Present: average body habitus, cooperative, no acute distress - EENT Eyes: Present: anicteric sclerae, EOMI ENT: Present: hearing grossly normal - Respiratory Details: able to speak without labored breathing - Neurologic Neurologic: Present: CNII-XII intact - Musculoskeletal Musculoskeletal: Present: strength equal bilaterally - Psychiatric Psychiatric: Present: A&O x's 3, appropriate affect, intact judgment & insight - Labs CBC & Chem 7: 10/26/20 06:46 10/25/20 05:52 Labs: Abnormal Lab Results - Last 24 Hours (Table) 10/25/20 10/25/20 10/25/20 Range/Units 05:52 05:52 05:52 WBC 43.71 H (4.50-10.00) X 10*3/uL RBC 3.80 L (4.40-5.60) X 10*6/uL Hgb 9.5 L (13.0-17.0) g/dL Hct 31.1 L (39.6-50.0) % MCH 25.0 L (27.0-32.0) pg MCHC 30.5 L (32.0-37.0) g/dL RDW 21.5 H (11.5-14.5) % MPV 9.1 L (9.5-12.2) fL Absolute Nucleated RBC 0.03 H (0.00-0.00) X 10*3/uL Immature Gran # 0.25 H (0.00-0.04) X 10*3/uL Lymphocytes # 35.60 H (0.90-5.00) X 10*3/uL Monocytes # 1.13 H (0.20-1.00) X 10*3/uL Eosinophils # 0 L (0.04-0.35) X 10*3/uL NRBC/100 WBC Diff 0.1 H (0.0-0.0) /100 WBCS Haptoglobin 244.0 H (31.2-198.0) mg/dL PT (9.0-12.0) sec INR (<1.2) D-Dimer (<0.60) mg/L FEU BUN/Creatinine Ratio 28.89 H (12.00-20.00) Ratio Glucose 136 H (70-110) mg/dL POC Glucose (mg/dL) (75-99) mg/dL Calcium 8.6 L (8.7-10.3) mg/dL Iron 33 L (65-175) ug/dL TIBC 175 L (228-460) ug/dL C-Reactive Protein (<10.0) mg/L Total Protein 5.3 L (6.2-8.2) g/dL Albumin 3.60 L (3.80-4.90) g/dL Vitamin B12 1377.0 H (200.0-944.0) pg/mL 10/25/20 10/25/20 10/25/20 Range/Units 05:52 11:27 16:45 WBC (4.50-10.00) X 10*3/uL RBC (4.40-5.60) X 10*6/uL Hgb (13.0-17.0) g/dL Hct (39.6-50.0) % MCH (27.0-32.0) pg MCHC (32.0-37.0) g/dL RDW (11.5-14.5) % MPV (9.5-12.2) fL Absolute Nucleated RBC (0.00-0.00) X 10*3/uL Immature Gran # (0.00-0.04) X 10*3/uL Lymphocytes # (0.90-5.00) X 10*3/uL Monocytes # (0.20-1.00) X 10*3/uL Eosinophils # (0.04-0.35) X 10*3/uL NRBC/100 WBC Diff (0.0-0.0) /100 WBCS Haptoglobin (31.2-198.0) mg/dL PT 26.9 H (9.0-12.0) sec INR 2.8 H (<1.2) D-Dimer (<0.60) mg/L FEU BUN/Creatinine Ratio (12.00-20.00) Ratio Glucose (70-110) mg/dL POC Glucose (mg/dL) 211 H 195 H (75-99) mg/dL Calcium (8.7-10.3) mg/dL Iron (65-175) ug/dL TIBC (228-460) ug/dL C-Reactive Protein (<10.0) mg/L Total Protein (6.2-8.2) g/dL Albumin (3.80-4.90) g/dL Vitamin B12 (200.0-944.0) pg/mL 10/26/20 10/26/20 10/26/20 Range/Units 06:46 06:46 07:01 WBC (4.50-10.00) X 10*3/uL RBC (4.40-5.60) X 10*6/uL Hgb (13.0-17.0) g/dL Hct (39.6-50.0) % MCH (27.0-32.0) pg MCHC (32.0-37.0) g/dL RDW (11.5-14.5) % MPV (9.5-12.2) fL Absolute Nucleated RBC (0.00-0.00) X 10*3/uL Immature Gran # (0.00-0.04) X 10*3/uL Lymphocytes # (0.90-5.00) X 10*3/uL Monocytes # (0.20-1.00) X 10*3/uL Eosinophils # (0.04-0.35) X 10*3/uL NRBC/100 WBC Diff (0.0-0.0) /100 WBCS Haptoglobin (31.2-198.0) mg/dL PT (9.0-12.0) sec INR (<1.2) D-Dimer 4.56 H (<0.60) mg/L FEU BUN/Creatinine Ratio (12.00-20.00) Ratio Glucose (70-110) mg/dL POC Glucose (mg/dL) 123 H (75-99) mg/dL Calcium (8.7-10.3) mg/dL Iron (65-175) ug/dL TIBC (228-460) ug/dL C-Reactive Protein 21.5 H (<10.0) mg/L Total Protein (6.2-8.2) g/dL Albumin (3.80-4.90) g/dL Vitamin B12 (200.0-944.0) pg/mL Microbiology - Last 24 Hours (Table) 10/22/20 17:20 Blood Culture - Preliminary Blood No Growth after 72 hours 10/22/20 17:07 Blood Culture - Preliminary Blood No Growth after 72 hours 10/23/20 16:10 Stool Culture - Preliminary Stool - Imaging and Cardiology CT scan - chest: report reviewed Venous US: report reviewed Assessment and Plan (1) COVID-19 Narrative/Plan: Pulm and IM managing Pt at higher risk for coagulopathy with infection and underlying health conditions Current Visit: Yes Status: Acute Priority: High Code(s): U07.1 - COVID-19 SNOMED Code(s): 211048350 (2) Lupus anticoagulant positive Narrative/Plan: Diagnosed at last month visit after work up when pt presented with coagulopathy of unknown origin. With this diagnosis, INR is going to be falsely elevated. Agree with full dose anticoagulation with lovenox and asa. Current Visit: Yes Status: Acute Priority: High Code(s): R76.0 - RAISED ANTIBODY TITER SNOMED Code(s): 71425066 (3) Chronic lymphocytic leukemia not having achieved remission Narrative/Plan: Pt WBC/ALC 40-60/70-80. Currently stable WBC/ALC. 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 No acute intervention Immunoglobulin levels adequate, no hypogammoglobulinemia Current Visit: Yes Status: Chronic Priority: Medium Code(s): C91.10 - CHRONIC LYMPHOCYTIC LEUK OF B-CELL TYPE NOT ACHIEVE REMIS SNOMED Code(s): 11961577 (4) Thoracic lymphadenopathy Narrative/Plan: Pt has Hx of LDN in chest. Acute resp illness likely contributing. F/U with Dr. Chen after discharge and covid recovery for follow up imaging Current Visit: No Status: Chronic Priority: Medium Code(s): R59.0 - LOCALIZED ENLARGED LYMPH NODES SNOMED Code(s): 230700286 Plan: Agree with full dose anticoagulation with lupus anticoag + asa with acute covid illness and lupus antocoag +. Cont close monitoring for bleeding, CBC/Hgb monitoring ongoing. Rx sent for 6 weeks of lovenox on discharge, discussed with [facility] who will verify copay CTA for persistent SOB-high risk for PE BLE doppler for achy legs-high risk for DVT Both reports review-no clots. Cont antocoagluation as prescribed and after DC as reported above Attests: I have performed H&P and developed impression and plan of care of patient, discussed with dictator. I agree with dictated note, documented as a scribe.
[2020-10-26] MEDS: MELATONIN 5 MG TABLET PO SCH (20:14)
[2020-10-26] MEDS: CYCLOBENZAPRINE 10 MG TAB PO SCH (20:14)
--- NOTE | 2020-10-26 23:28 | P.PN ---
Progress Note - Text Progress Note Date: 10/26/20 Chief Complaint: Not feeling well History of presenting complaint: This is a pleasant 60-year-old patient of Dr. Renny Masters. Chronic stable medical conditions include anxiety depression, GERD, COPD, known CLL with a baseline count running around 50. Follow[address] by Dr[address] Faulkner. Positive lupus anticoagulant Patient now presents feeling unwell about 5 days . Had some diarrhea. Subsequently started feeling more weak and tired. The headache body aches. No change in taste or smell. cough with clear phlegm. Having chills. No fever. Episode of dark stool. Patient tested positive for Coronavirus in the ER. Admitted with COVID 19 pneumonia. Started on Remdesivir. Decadron. Vitamin C vitamin D. Zinc. Lovenox. Today-feeling much better. Day 4 of Remdesivir. Oral intake good. Has been up in a chair Review of systems: Was done for constitutional, cardiovascular, GI, pulmonary. relevant finding as above Active Medications Albuterol Sulfate (Albuterol Hfa Inhaler) 2 puff INHALATION RT-Q4H [facility] Last Admin: 10/26/20 20:47 Dose: 2 puff Documented by: Ascorbic Acid (Ascorbic Acid 500 Mg Tab) 1,000 mg PO DAILY [facility] Last Admin: 10/26/20 09:26 Dose: 1,000 mg Documented by: Aspirin (Aspirin 325 Mg Tab) 325 mg PO DAILY [facility] Last Admin: 10/26/20 09:26 Dose: 325 mg Documented by: Bismuth Subsalicylate (Bismuth Subsalicylate 4,192 Mg/240 Ml Bottle) 262 mg PO Q6H PRN PRN Reason: GI Upset Budesonide/Formoterol Fumarate (Symbicort 160-4.5 Mcg Inhaler) 2 puff INHALATION RT-BID [facility] Last Admin: 10/26/20 20:47 Dose: 2 puff Documented by: Chlorhexidine Gluconate (Chlorhexidine Gluconate 15 Ml Cup) 15 ml MUCOUS MEM BID [facility] Last Admin: 10/26/20 20:14 Dose: 15 ml Documented by: Cholecalciferol (Cholecalciferol 25 Mcg (1000 Iu) Tablet) 25 mcg PO DAILY [facility] Last Admin: 10/26/20 09:27 Dose: 25 mcg Documented by: Clonazepam (Clonazepam 0.5 Mg Tab) 0.5 mg PO BID PRN PRN Reason: Anxiety Last Admin: 10/23/20 04:07 Dose: 0.5 mg Documented by: Cyclobenzaprine HCl (Cyclobenzaprine 10 Mg Tab) 10 mg PO HS [facility] Last Admin: 10/26/20 20:14 Dose: 10 mg Documented by: Dexamethasone Sodium Phosphate (Dexamethasone Sod Phosphate 10 Mg/Ml 1 Ml Vial) 6 mg IV BID [facility] Last Admin: 10/26/20 20:14 Dose: 6 mg Documented by: Enoxaparin Sodium (Enoxaparin 60 Mg/0.6 Ml Syringe) 60 mg SQ Q12HR [facility] Last Admin: 10/26/20 20:14 Dose: 60 mg Documented by: Famotidine (Famotidine 20 Mg Tab) 20 mg PO BID [facility] Last Admin: 10/26/20 20:14 Dose: 20 mg Documented by: Ferrous Sulfate (Ferrous Sulfate 325 Mg Tab) 325 mg PO DAILY [facility] Last Admin: 10/26/20 09:26 Dose: 325 mg Documented by: Remdesivir 100 mg/ Sodium (Chloride) 250 mls @ 250 mls/hr IVPB DAILY@1100 [facility] Stop: 10/27/20 11:59 Last Admin: 10/26/20 09:31 Dose: 250 mls/hr Documented by: Levofloxacin (Levofloxacin 500 Mg Tab) 500 mg PO DAILY [facility] Stop: 10/30/20 09:01 Last Admin: 10/26/20 09:26 Dose: 500 mg Documented by: Melatonin (Melatonin 5 Mg Tablet) 5 mg PO HS [facility] Last Admin: 10/26/20 20:14 Dose: 5 mg Documented by: Paroxetine HCl (Paroxetine 20 Mg Tab) 20 mg PO DAILY [facility] Last Admin: 10/26/20 09:27 Dose: 20 mg Documented by: Tiotropium [place] (Tiotropium 2.5 Mcg Inhaler) 2 puff INHALATION RT-DAILY [facility] Last Admin: 10/26/20 08:21 Dose: 2 puff Documented by: Zinc Sulfate (Zinc Sulfate 220 Mg Cap) 220 mg PO DAILY [facility] Last Admin: 10/26/20 09:26 Dose: 220 mg Documented by: Past medical history to include: Chronic lymphoid leukemia, COPD, anxiety, GERD, lupus anticoagulant positive Social history: Patient smoked about a pack and half a day for close to 42 years stopped recently. Lives alone. Employed for [employer]-m[employer] Family history: Reviewed, noncontributory to presentation Physical examination: VITAL SIGNS: 97.6, 95, 18, 126.70, 94% on room air GENERAL: Sitting up in bed, comfortable PSYCH: Alert and oriented x3; mood and affect normal. NEUROLOGICAL: Cranial nerves grossly intact; no facial asymmetry, moving all 4 limbs Rest of the exam as per pulmonary and nursing INVESTIGATIONS, reviewed in the clinical context: Family dental: White count 49.7 hemoglobin 10.4 d-dimer 4.56 CRP 21.5 pro- calcitonin 0.06 October 25: White count 43.7 hemoglobin 9.5 d-dimer 7.9 to CRP 33.1 October 24: White count 40.5 hemoglobin 9.6 platelets 310 potassium 4.4 creatinine 0.85 d-dimer 8.06 CRP 50.5 White count 35 hemoglobin 11.7 platelets 303 lymphocytes 32.9 Pro time 26 PTT 61.5 d-dimer 8.6 potassium 4.6 sodium 1:30 creatinine 1.2 to CRP 11 EKG tracing personally reviewed by me-sinus rhythm Chest x-ray film personally reviewed by me-bilateral consultation prominent Coronavirus [PCR]-detected Previous testing: Lupus anticoagulant APTT increased at 104 2% anticoagulant PTT mix increased at 71 Diluted Eric viper venom increased at 58 Lupus Hexagonal phase positive LA DRVVT confirm-negative DRVVT 50:50-increased at 58 Rheumatoid factor XII Cyclical Citra Obrien peptide IgG 7.6 Cyclic central peptide positive ANAs screen [place]NA[place] [id number] In a pattern that if oral Double-stranded DNA antibody negative Assessment and plan: -COVID 19 pneumonia. Patient does not any significant hypoxia. Initial pulse ox 98% room air. Given Remdesivir. , Decadron vitamin C vitamin D3 zinc. , convalescent plasma given. Subcu Lovenox., Give high-dose steroids. Doing better -Chronic lymphocytic leukemia -GERD -Anxiety depression not otherwise specified -Positive lupus anticoagulant. High risk of coagulation. Therapeutic dose of Lovenox. Doing better. Discussed with Dr. Sevilla. Hopefully home tomorrow.
[2020-10-27] MEDS: ALBUTEROL HFA INHALER INHALATION SCH ×4 (02:04→11:44)
[2020-10-27 04:15] VITALS: RESP 16
[2020-10-27] MEDS: SYMBICORT 160-4.5 MCG INHALER INHALATION SCH (08:51)
[2020-10-27] MEDS: TIOTROPIUM 2.5 MCG INHALER INHALATION SCH (08:52)
[2020-10-27 08:57] LABS: Methylmalonic Acid 0.17 umol/L (<0.40)
[2020-10-27] MEDS: ENOXAPARIN 60 MG/0.6 ML SYRINGE SQ SCH (10:02)
[2020-10-27] MEDS: CHLORHEXIDINE GLUCONATE 15 ML CUP MUCOUS MEM SCH (10:02)
[2020-10-27] MEDS: DEXAMETHASONE SOD PHOSPHATE 10 MG/ML 1 ML VIAL IV SCH (10:02)
[2020-10-27] MEDS: REMDESIVIR 100 MG in SODIUM CHLORIDE 0.9% 250 ML IVPB SCH (10:02)
[2020-10-27] MEDS: ASCORBIC ACID 500 MG TAB PO SCH (10:03)
[2020-10-27] MEDS: LEVOFLOXACIN 500 MG TAB PO SCH (10:03)
[2020-10-27] MEDS: ASPIRIN 325 MG TAB PO SCH (10:03)
[2020-10-27] MEDS: FERROUS SULFATE 325 MG TAB PO SCH (10:03)
[2020-10-27] MEDS: PARoxetine 20 MG TAB PO SCH (10:03)
[2020-10-27] MEDS: CHOLECALCIFEROL 25 MCG (1000 IU) TABLET PO SCH (10:03)
[2020-10-27] MEDS: FAMOTIDINE 20 MG TAB PO SCH (10:03)
--- NOTE | 2020-10-27 10:32 | P.PN ---
Subjective Progress Note Date: 10/27/20 Principal diagnosis: CLL, lupus anticoagulant, covid infection Patient doing well today, off O2, being educated on his lovenox injections. He has no acute c/o. Objective - Vital Signs Vital signs: Vital Signs Temp 97.6 F 10/27/20 10:00 Pulse 70 10/27/20 10:00 Resp 16 10/27/20 10:00 BP 105/57 10/27/20 10:00 Pulse Ox 94 L 10/27/20 10:00 Intake & Output 10/26/20 10/27/20 10/27/20 18:59 06:59 18:59 Intake Total 360 296 Balance 360 296 Weight 60.328 kg Intake: Oral 360 296 Other: Voiding Method Toilet # Voids 4 1 # Bowel Movements 1 - Constitutional General appearance: Present: cooperative, no acute distress, thin - EENT Eyes: Present: anicteric sclerae, EOMI ENT: Present: hearing grossly normal - Respiratory Details: Pt is seen moving around without respiratory distress - Neurologic Neurologic: Present: CNII-XII intact (grossly) - Psychiatric Psychiatric: Present: A&O x's 3, appropriate affect, intact judgment & insight - Allied health notes Allied health notes reviewed: case management - Labs CBC & Chem 7: 10/26/20 06:46 10/25/20 05:52 Labs: Abnormal Lab Results - Last 24 Hours (Table) 10/25/20 10/26/20 Range/Units 05:52 06:46 WBC 49.74 H (4.50-10.00) X 10*3/uL RBC 4.18 L (4.40-5.60) X 10*6/uL Hgb 10.4 L (13.0-17.0) g/dL Hct 34.7 L (39.6-50.0) % MCH 24.9 L (27.0-32.0) pg MCHC 30.0 L (32.0-37.0) g/dL RDW 22.2 H (11.5-14.5) % MPV 8.9 L (9.5-12.2) fL Absolute Nucleated RBC 0.04 H (0.00-0.00) X 10*3/uL Immature Gran # 0.22 H (0.00-0.04) X 10*3/uL Monocytes # 1.32 H (0.20-1.00) X 10*3/uL Eosinophils # 0 L (0.04-0.35) X 10*3/uL NRBC/100 WBC Diff 0.1 H (0.0-0.0) /100 WBCS RBC Folate 1,323 H (280 - 791) ng/mL Microbiology - Last 24 Hours (Table) 10/23/20 16:10 Stool Culture - Final Stool 10/22/20 17:20 Blood Culture - Preliminary Blood No Growth after 96 hours 10/22/20 17:07 Blood Culture - Preliminary Blood No Growth after 96 hours - Imaging and Cardiology CT scan - chest: report reviewed Venous US: report reviewed Assessment and Plan (1) COVID-19 Narrative/Plan: Pulm and IM managing Pt at higher risk for coagulopathy with infection and underlying health conditions Pt is recovering Current Visit: Yes Status: Acute Priority: High Code(s): U07.1 - COVID-19 SNOMED Code(s): 212172793 (2) Lupus anticoagulant positive Narrative/Plan: Diagnosed at last month visit after work up when pt presented with coagulopathy of unknown origin. With this diagnosis, INR is going to be falsely elevated. Agree with full dose anticoagulation with lovenox and asa during acute illness and during recovery. Current Visit: Yes Status: Acute Priority: High Code(s): R76.0 - RAISED ANTIBODY TITER SNOMED Code(s): 59320430 (3) Chronic lymphocytic leukemia not having achieved remission Narrative/Plan: Pt WBC/ALC 40-60/70-80. Currently stable WBC/ALC. Pt is on observation only for CLL. F/U Dr. Chen in a few weeks is scheduled 13q deletion, monosomy 13 on recent FISH studies. No acute intervention Immunoglobulin levels adequate, no hypogammoglobulinemia Current Visit: Yes Status: Chronic Priority: Medium Code(s): C91.10 - CHRONIC LYMPHOCYTIC LEUK OF B-CELL TYPE NOT ACHIEVE REMIS SNOMED Code(s): 33054968 (4) Thoracic lymphadenopathy Narrative/Plan: Pt has Hx of LDN in chest. Acute resp illness likely contributing. F/U with Dr. Chen after discharge and covid recovery for follow up imaging. Current Visit: No Status: Chronic Priority: Medium Code(s): R59.0 - LOCALIZED ENLARGED LYMPH NODES SNOMED Code(s): 429569364 Plan: Agree with full dose anticoagulation with lupus anticoag + asa with acute covid illness and lupus antocoag +. Cont close monitoring for bleeding, CBC/Hgb monitoring ongoing. Rx sent for 6 weeks of lovenox on discharge approved. Pt being educated on administration of SQ injections. Reinforced he is to stay on his asa as well, pt verbalized understanding. CTA for persistent SOB-high risk for PE-negative BLE doppler for achy legs-high risk for DVT-negative
[2020-10-27 10:34] LABS: HCT 31.6 % (39.6-50.0); HGB 9.7 g/dL (13.0-17.0); MCH 24.9 pg (27.0-32.0); MCHC 30.7 g/dL (32.0-37.0); MCV 81.2 fL (80.0-97.0); Platelet Count 431 X 10*3/uL (140-440); RBC 3.89 X 10*6/uL (4.40-5.60); WBC 37.41 X 10*3/uL (4.50-10.00)
[2020-10-27] MEDS: ZINC SULFATE 220 MG CAP PO SCH (11:41)
[2020-10-27 11:53] LABS: Anisocytosis (M) 2+; Basophils # (A) 0.07 X 10*3/uL (0.00-0.10); Basophils % (A) 0.2 %; Eosinophils # (A) 0 X 10*3/uL (0.04-0.35); Eosinophils % (A) 0 %; Lymphocytes # (A) 31.39 X 10*3/uL (0.90-5.00); Lymphocytes % (A) 83.9 %; Monocytes # (A) 0.38 X 10*3/uL (0.20-1.00); Neutrophils # (A) 5.38 X 10*3/uL (1.80-7.70); Neutrophils % (A) 14.4 %; Smudge Cells PRESENT
--- NOTE | 2020-10-27 13:53 | CDI ---
Documentation Clarification Form Date: 10/27/2020 01:27:39 PM From: Berenice DesaiKaye, [facility], CCDS Admit Date: 10/22/2020 07:29:00 PM Patient Name: Zana Cochran Visit Number: [id number] Discharge Date: ATTENTION: The Clinical Documentation Specialists (CDI) and [facility] Coding Staff appreciate your assistance in clarifying documentation. Please respond to the clarification below the line at the bottom and electronically sign. The CDI & [facility] Coding staff will review the response and follow-up if needed. Please note: Queries are made part of the Legal Health Record. If you have any questions, please contact the author of this message via ITS. Dr. Lance Azar: History of Chronic Anemia is documented in the 10/23 Pulmonary Consult and subsequent Progress Notes. Per the 10/24 Hematology/Oncology Consult: "Anemia noted on today's CBC: Hemolysis and anemia workup ordered. History/Risk Factors Per the 10/22 ED Note Past Medical History: Emphysema, CLL not in remission, Positive Lupus Anticoagulant, Former Smoker. Clinical indicators: Presented to the ED on 10/22 with SOB and Diarrhea via EMS. History of recently pleural effusion. ED Clinical Impression: COPD Exacerbation, Leukemia, Acute Respiratory Distress Syndrome, Bronchitis, Bronchospasm. 10/23 History & Physical: Patient complained of weakness, tired, diarrhea, headache, cough, fever, episode of dark stool. Tested Positive for COVID-19. Assessment: COVID 19 Pneumonia. Hemoglobin 10/22: 11.7, 10/23: 11.4, 10/24: 9.6, 10/25: 9.5, 10/26: 10.4, 10/27: 9.7 Hematocrit 10/22: 35.6, 10/23: 36.9, 10/24: 31.0, 10/25: 31.1, 10/26: 34.7, 10/27: 31.6 Stool Lactoferrin Negative 10/23 Immunology: IgG 864.0, IgA 105.0, IgM 443.0 10/24 Serology: COVID Detected 10/22. C Diff Negative 10/23. Nutritional Assessment 10/22: Nutrition Intake: Good, consumed 75-100% diet, Weight 60.328 kg, Height 5 ft 6 in, BMI 21.4, W 58.967 kg, 102% [place] body Weight. Dietary Supplement: Ensure. Treatment: INH Duoneb, IV Solumedrol, IV fluid 1,000 mls @ 130 mls/hr q7H, IV fluid 1,000 mls @ 999 mls/hr q1H, INH Ventolin, PO Protonix, PO Aspirin, PO Feosol, PO Levaquin, PO Vit C, PO Vit D3, IV Decadron, PO Orazinc, IV Remdesivir, INH Symbicort, Lovenox sq. Transfused 1 unit FFP/Convalescent Plasma on 10/23 In order to capture the severity of condition, please clarify the type of anemia and etiology if known:. Acute blood loss anemia Acute on chronic blood loss anemia Chronic blood loss anemia Iron deficiency anemia Hemolytic anemia Drug induced anemia Anemia due to malignancy Nutritional anemia Unable to determine Other, please specify (Last Form Revision: November 2019) MTDD
--- NOTE | 2020-10-27 14:06 | CDI ---
Documentation Clarification Form Date: 10/27/2020 01:55:00 PM From: Berenice DesaiKayeJUAN ANTONIO grigsby, CCDS Admit Date: 10/22/2020 07:29:00 PM Patient Name: Zana Cochran Visit Number: [id number] Discharge Date: ATTENTION: The Clinical Documentation Specialists (CDI) and [facility] Coding Staff appreciate your assistance in clarifying documentation. Please respond to the clarification below the line at the bottom and electronically sign. The CDI & [facility] Coding staff will review the response and follow-up if needed. Please note: Queries are made part of the Legal Health Record. If you have any questions, please contact the author of this message via ITS. Dr. Gregor Singer: This patient is admitted with COVID 19 Pneumonia, Possible COPD Exacerbation, Mild Hypoxemic Respiratory Failure and has a history of CLL on observation, also diagnosed with Lupus Anticoagulant Positive. History/Risk Factors Per the 10/22 ED Note Past Medical History: Emphysema, CLL not in remission, Positive Lupus Anticoagulant, Former Smoker. Clinical indicators: Presented to the ED on 10/22 with SOB and Diarrhea via EMS. History of recently pleural effusion. ED Clinical Impression: COPD Exacerbation, Leukemia, Acute Respiratory Distress Syndrome, Bronchitis, Bronchospasm. 10/23 History & Physical: Patient complained of weakness, tired, diarrhea, headache, cough, fever, episode of dark stool. Tested Positive for COVID-19. Assessment: COVID 19 Pneumonia. 10/22 VS: T 98.9, P 84, R 20 (labored, cough), BP 96/72, PO 98 - 96 2Lnc 10/22 LAB: WBC 35.0, Hgb 11.7, Hct 35.6, Lymph 32.90, PT 26.0, INR 2.7, APTT 61.5, Na 130, CO2 19, BUN 30, Cr 1.22, Cr Kinase 43, Lactic Acid 1.3 Stool Lactoferrin Negative 10/23 Immunology: IgG 864.0, IgA 105.0, IgM 443.0 10/24 Serology: COVID Detected 10/22. C Diff Negative 10/23. 10/22 Treatment: INH Duoneb, IV Solumedrol, IV fluid 1,000 mls @ 130 mls/hr q7H, IV fluid 1,000 mls @ 999 mls/hr q1H, INH Ventolin. 10/23: INH Spiriva, Vit C, Vit D3, IV Decadron, po Orazinc, IV Remdesivir, INH Symbicort, Lovenox sq, Transfused Convalescent Plasma In your professional opinion, please clarify if these findings signify one of the following conditions, whether the condition is POA, and cause, if known: Sepsis ruled out Sepsis ruled in: o With Severe Sepsis o Without Severe Sepsis Other, please specify Unable to determine Present on Admission o Yes o No Identify the (suspected) organism Link or clarify if there is associated (due to/with): o Organ failure (Last Revision: December 2017) Sepsis ruled out MTDD
--- NOTE | 2020-10-27 14:13 | CDI ---
Documentation Clarification Form Date: 10/27/2020 02:07:21 PM From: Berenice DesaiKaye, [facility], CCDS Admit Date: 10/22/2020 07:29:00 PM Patient Name: Zana Cochran Visit Number: [id number] Discharge Date: ATTENTION: The Clinical Documentation Specialists (CDI) and [facility] Coding Staff appreciate your assistance in clarifying documentation. Please respond to the clarification below the line at the bottom and electronically sign. The CDI & [facility] Coding staff will review the response and follow-up if needed. Please note: Queries are made part of the Legal Health Record. If you have any questions, please contact the author of this message via ITS. Dr. Gregor Singer: This patient is admitted with COVID 19 pneumonia, possible COPD exacerbation and history of CLL not in remission, Positive Lupus Anticoagulant at high risk for coagulopathy on dietary supplements with BMI 21.5. History/Risk Factors Per the 10/22 ED Note Past Medical History: Emphysema, CLL not in remission, Positive Lupus Anticoagulant, Former Smoker. Clinical indicators: Presented to the ED on 10/22 with SOB and Diarrhea via EMS. History of recently pleural effusion. ED Clinical Impression: COPD Exacerbation, Leukemia, Acute Respiratory Distress Syndrome, Bronchitis, Bronchospasm. 10/23 History & Physical: Patient complained of weakness, tired, diarrhea, headache, cough, fever, episode of dark stool. Tested Positive for COVID-19. Assessment: COVID 19 Pneumonia. VS 10/22: T 98.9, P 84, R 20 (labored, cough), BP 96/72, PO 98 RA. BMI: 21.5 LAB 10/22: WBC 36.0, Hgb 11.7, Hct 35.6, Lymph 32.90, Total Protein 7.0, Albumin 3.7 Stool Lactoferrin Negative 10/23 Immunology: IgG 864.0, IgA 105.0, IgM 443.0 10/24 Serology: COVID Detected 10/22. C Diff Negative 10/23. Nutritional Assessment 10/22: Nutrition Intake: Good, consumed 75-100% diet, Weight 60.328 kg, Height 5 ft 6 in, BMI 21.4, W 58.967 kg, 102% [place] body Weight. Dietary Supplement: Ensure. Treatment: INH Duoneb, IV Solumedrol, IV fluid 1,000 mls @ 130 mls/hr q7H, IV fluid 1,000 mls @ 999 mls/hr q1H, INH Ventolin, PO Protonix, PO Aspirin, PO Feosol, PO Levaquin, PO Vit C, PO Vit D3, IV Decadron, PO Orazinc, IV Remdesivir, INH Symbicort, Lovenox sq. Transfused 1 unit FFP/Convalescent Plasma on 10/23 In your professional opinion, can you please clarify if these findings signify one of the following conditions? o Mild Protein-Calorie Malnutrition o Moderate Protein-Calorie Malnutrition o Other condition, please specify o Unable to determine (Last Revision: March 2019) No malnutrition MTDD
[2020-10-27 14:29] VITALS: BP 126/78; PULSE 74; TEMP 97.5
--- NOTE | 2020-10-27 16:09 | P.PN ---
Subjective Progress Note Date: 10/27/20 60-year-old male with a history of chronic lymphocytic leukemia, and COPD, who presents to the emergency department via EMS, on 10/22/2020, at 1648 in the afternoon. The patient came in complaining of shortness of breath. In addition, he did have a cough, that was mostly nonproductive. He was not getting any better at home and decided to come in to be evaluated. He denied any fever or chills, chest pain or chest discomfort. He was complaining of significant and progressive weakness. In addition, the patient was admitted to [facility]. The patient also tested positive for COVID 19 infection, which may very well explain his symptoms. His chest x-ray showed some interstitial patchy densities, mostly in the left lung, when compared to a previous chest x-ray done on September 23 of this year. He was evaluated by Dr. Salgado in the emergency department and was admitted with a diagnosis of possible COVID 19 pneumonia, COPD exacerbation, as well as bronchitis, and leukemia. Currently, the patient's on O2 at 2 L. His symptoms started about 3-1/2-4 days ago. Hence, we placed the patient on remdesivir, Decadron, vitamin C, vitamin D3, zinc, Pepcid, and melatonin. We also ordered him 1 unit convalescent plasma. 10/24/2019 over seeing the patient for a follow-up regarding Covid 19 related pneumonia. The patient's comorbidities including COPD and CLL. The patient also has a positive lupus anticoagulant. The patient was having increased cough and he tested positive for coronary via/Covid 19 infection on 10/22/2020. Currently he is admitted with some limited pneumonia and the patient is currently receiving a combination of treatment including remdesivir, Decadron, vitamin C, vitamin D3, zinc, Pepcid, and melatonin., And he also received 1 unit convalescent plasma.currently is on 6 mg of Decadron. He is afebrile. He remains on 2 L of oxygen by nasal cannula. His inflammatory markers showed a CRP level of 15, his LDH level was at 2 MESSI and his pro-calcitonin level was low at 0.12. On 10/25/2020, the patient is being seen for a follow-up. Is currently on room air oxygen. He is currently on 3 L of oxygen by nasal cannula. He is resting comfortably in bed. Based on today's blood work, his CRP level is down to 33, pro-calcitonin from yesterday was 0.12, his LDH level from few days ago was 218, his d-dimer is still elevated at 7.92. His white cell count is 43 consistent with his CLL. He is day #3 Remdesivir , in addition to Decadron and vitamin C and zinc and Pepcid and melatonin. He also received a unit of convalescent plasma. He reports improvement in his energy level. No nausea. No vomiting. No diarrhea. No abdominal pain. No chest pain. No other new complaints otherwise for now. The follow-up chest x-rays to be obtained tomorrow. 10/26/2020, the patient is resting comfortably in bed. No new complaints. Is currently on room air oxygen. No other significant events overnight. He is still being treated for his coronavirus/Covid 19 infection. He is on a day #4 of Remdesivir , in addition to Decadron and vitamin C and zinc and Pepcid and melatonin. His white cell count today's 49. Hemoglobin is 10.4. Platelet is at 440. CRP is down to 21 and LDH level is 532. No nausea. No vomiting. Griggs ited diarrhea. No chest pain. No altered mentation. No other significant events overnight. No side effects to the offer treatment. He is still receiving Decadron 6 mg IV every 24 hours. On 10/27/2020, the patient is on room air oxygen. No respiratory distress. Minimal cough. He has completed his course of Remdesivir and the patient is also on Decadron. No new complaints. White cycles at 37.4. Hemoglobin is at 9.7. No nausea. No vomiting. No chest pain. No altered mentation. The plan is to discharge this patient home today to be followed up on outpatient basis. Note that the patient also received 1 unit of convalescent plasma. His energy level is adequate. Objective - Vital Signs Vital signs: Vital Signs Temp 97.5 F L 10/27/20 14:00 Pulse 74 10/27/20 14:00 Resp 16 10/27/20 14:00 BP 126/78 10/27/20 14:00 Pulse Ox 95 10/27/20 14:00 Intake & Output 0210/27/20 10/27/20 18:59 06:59 18:59 Intake Total 360 592 Balance 360 592 Weight 60.328 kg Intake: Oral 360 592 Other: Voiding Method Toilet # Voids 4 1 # Bowel Movements 1 - Exam No acute distress, oriented 3. The patient is resting comfortably on room air oxygen. No signs of any respiratory distress Head exam was generally normal. There was no scleral icterus or corneal arcus. Mucous membranes were moist. HEENT examination is grossly unremarkable. Mucous membranes are moist. Neck supple. Full range of motion. No adenopathy thyromegaly or neck vein distention. Cardiovascular examination reveals regular rhythm rate. S1-S2 normal. No S3 or S4. No discernible murmur noted. Lungs reveal mostly clear breath sounds. A few scattered rhonchi are noted. No wheezes or crackles. Breath sounds equal bilaterally. Abdomen soft bowel sounds are heard. No masses or tenderness. Extremities are intact. No cyanosis clubbing or edema. Skin is without rash or lesion. Neurologic examination is brief but nonfocal. - Labs CBC & Chem 7: 10/27/20 07:28 10/25/20 05:52 Labs: Abnormal Lab Results - Last 24 Hours (Table) 10/26/20 10/27/20 Range/Units 06:46 07:28 WBC 37.41 H (4.50-10.00) X 10*3/uL RBC 3.89 L (4.40-5.60) X 10*6/uL Hgb 9.7 L (13.0-17.0) g/dL Hct 31.6 L (39.6-50.0) % MCH 24.9 L (27.0-32.0) pg MCHC 30.7 L (32.0-37.0) g/dL RDW 22.0 H (11.5-14.5) % MPV 9.0 L (9.5-12.2) fL Absolute Nucleated RBC 0.05 H (0.00-0.00) X 10*3/uL Immature Gran # 0.19 H (0.00-0.04) X 10*3/uL Lymphocytes # 41.68 H (0.90-5.00) X 10*3/uL Eosinophils # 0 L (0.04-0.35) X 10*3/uL NRBC/100 WBC Diff 0.1 H (0.0-0.0) /100 WBCS Microbiology - Last 24 Hours (Table) 10/23/20 16:10 Stool Culture - Final Stool 10/22/20 17:20 Blood Culture - Preliminary Blood No Growth after 96 hours 10/22/20 17:07 Blood Culture - Preliminary Blood No Growth after 96 hours Assessment and Plan Plan: 1 COVID 19 infection, with possible developing/mild pneumonia/pneumonitis, and mild hypoxemic respiratory failure. The patient was hypoxic at the time of admission and gradually improved and currently is on room air oxygen. He is not having any significant shortness of breath. He continues to complete his treatment for coronavirus/covered 19 infection. The patient is on a combination of day #4 of Remdesivir, Decadron, zinc oxide, vitamin C, vitamin D, melatonin, Pepcid, and he is also receiving a unit of convalescent plasma. Inflammatory markers are not significantly elevated. He does have comorbidities including COPD and CLL. The patient clinically is doing better. 2 COPD, with possible COPD exacerbation. 3 History of chronic lymphocytic leukemia. Patient is being monitored for now regarding his CLL. 4 History of pleural effusion. 5 History of gastroesophageal reflux disease. 6 Prior history of heavy tobacco use. 7 History of chronic anemia. 8 Lupus anticoagulant positive, with elevation of the dilation protocol including PT/INR. No history of any DVTs or pulmonary emboli. Plan: Patient can be discharged home. Completed total of 10 day course of Decadron 6 mg by mouth daily Increased level of activity as tolerated Will need a follow-up chest x-ray in 4-6 weeks time in our office regarding the peripheral pulmonary infiltrate described earlier We'll recommend anticoagulation per hematology oncology and the patient is curre ntly on aspirin. The patient is also receiving therapeutic dose of Lovenox 60 mg subcu every 12 hours. Please confirm with hematology oncology the choice of anticoagulant the time of discharge And the patient may benefit from a course of Eliquis or Xarelto or the next 30 days. Otherwise, he can be discharged from the pulmonary and critical care standpoint to be followed up on outpatient basis. He does have a combination of Advair and Spiriva regarding his COPD. Please confirmed anticoagulants with hematology oncology.
--- NOTE | 2020-10-27 23:15 | P.DS ---
Providers Date of admission: 10/22/20 19:29 Expected date of discharge: 10/27/20 Attending physician: Gregor Singer Consults: 10/22/20 19:26 Consult Physician Routine Consulting Provider: Luis A Velazquez Consult Reason/Comments: COPD, bronchitis Do you want consulting provider notified?: Yes, Notify in am 10/23/20 13:12 Consult Physician Routine Consulting Provider: Lance Azar Consult Reason/Comments: Recent CLL diagnosis, known to dr Chen Do you want consulting provider notified?: Yes Primary care physician: Mikhail Masters [facility] Course: Chief Complaint: Not feeling well History of presenting complaint: This is a pleasant 60-year-old patient of Dr. Renny Masters. Chronic stable medical conditions include anxiety depression, GERD, COPD, known CLL with a baseline count running around 50. Follows by Dr[address] Faulkner. Positive lupus anticoagulant Patient now presents feeling unwell about 5 days . Had some diarrhea. Subsequently started feeling more weak and tired. The headache body aches. No change in taste or smell. cough with clear phlegm. Having chills. No fever. Episode of dark stool. Patient tested positive for Coronavirus in the ER. Admitted with COVID 19 pneumonia. Started on Remdesivir. Decadron. Vitamin C vitamin D. Zinc. Lovenox. Today-doing well. Breathing stable. Eating well. Up and about. Pulse ox 95% room air. Because of high risk of clotting patient be discharged on Lovenox. Care was discussed with the patient. Promotional Demonstrator: Dr. Sevilla from pulmonary Dr. Azar from oncology Past medical history to include: Chronic lymphoid leukemia, COPD, anxiety, GERD, lupus anticoagulant positive Social history: Patient smoked about a pack and half a day for close to 42 years stopped recently. Lives alone. Employed for [employer] Family history: Reviewed, noncontributory to presentation Physical examination: VITAL SIGNS: 97.5, 74, 16, 126 bun 78, 95% room air GENERAL: Sitting up in bed, comfortable PSYCH: Alert and oriented x3; mood and affect normal. NEUROLOGICAL: Cranial nerves grossly intact; no facial asymmetry, moving all 4 limbs Rest of the exam as per pulmonary and nursing INVESTIGATIONS, reviewed in the clinical context: October 27: WBC 37.4 hemoglobin 9.7 platelets 431 October 26: White count 49.7 hemoglobin 10.4 d-dimer 4.56 CRP 21.5 pro-calcitonin 0.06 October 25: White count 43.7 hemoglobin 9.5 d-dimer 7.9 to CRP 33.1 October 24: White count 40.5 hemoglobin 9.6 platelets 310 potassium 4.4 creatinine 0.85 d-dimer 8.06 CRP 50.5 White count 35 hemoglobin 11.7 platelets 303 lymphocytes 32.9 Pro time 26 PTT 61.5 d-dimer 8.6 potassium 4.6 sodium 1:30 creatinine 1.2 to CRP 11 EKG tracing personally reviewed by me-sinus rhythm Chest x-ray film personally reviewed by me-bilateral consultation prominent Coronavirus [PCR]-detected Previous testing: Lupus anticoagulant APTT increased at 104 2% anticoagulant PTT mix increased at 71 Diluted Eric viper venom increased at 58 Lupus Hexagonal phase positive LA DRVVT confirm-negative DRVVT 50:50-increased at 58 Rheumatoid factor XII Cyclical Citra Obrien peptide IgG 7.6 Cyclic central peptide positive ANAs screen [place]NA[place] [id number] In a pattern that if oral Double-stranded DNA antibody negative Assessment and plan: -COVID 19 pneumonia. Patient does not any significant hypoxia. Initial pulse ox 98% room air. Given Remdesivir. , Decadron vitamin C vitamin D3 zinc. , convalescent plasma given. Subcu Lovenox., Give high-dose steroids. Improved -Chronic lymphocytic leukemia -GERD -Anxiety depression not otherwise specified -Positive lupus anticoagulant. High risk of coagulation. Disposition: Home Patient Condition at Discharge: Fair Plan - Discharge Summary Discharge Rx Participant: Yes New Discharge Prescriptions: New Enoxaparin [Lovenox] 60 mg SQ Q12H 42 Days #84 syringe Melatonin 5 mg PO HS tablet Zinc Sulfate [Orazinc] 220 mg PO DAILY #30 cap Ascorbic Acid [Vitamin C] 1,000 mg PO DAILY #30 tab Cholecalciferol [Vitamin D3 (25 Mcg = 1000 Iu)] 25 mcg PO DAILY #30 tablet predniSONE 10 mg PO DAILY #30 tab Continue Calcium Carbonate [Tums] 1,000 mg PO TID PRN PRN Reason: Heartburn clonazePAM [KlonoPIN] 0.5 mg PO BID PRN PRN Reason: Anxiety Tiotropium Endeavor [Spiriva] 1 cap INHALATION RT-DAILY@1200 PARoxetine [Paxil] 20 mg PO DAILY Albuterol Sulfate [Proair Hfa] 2 puff INHALATION RT-QID PRN PRN Reason: Shortness Of Breath Omeprazole 20 mg PO DAILY Fluticasone/Salmeterol [Advair 250-50 Diskus] 1 puff INHALATION RT-BID Ferrous Sulfate [Iron (65 MG Elemental)] 325 mg PO DAILY Cyclobenzaprine [Flexeril] 10 mg PO HS Bismuth Subsalicylate [Pepto-Bismol] 262 mg PO Q6H PRN PRN Reason: Gi Upset Aspirin 325 mg PO DAILY #30 tab Discontinued Chlorhexidine Gluconate [Peridex] 15 ml MUCOUS MEM BID #1 ml Discharge Medication List Albuterol Sulfate [Proair Hfa] 2 puff INHALATION RT-QID PRN 09/23/20 [History] Bismuth Subsalicylate [Pepto-Bismol] 262 mg PO Q6H PRN 09/23/20 [History] Calcium Carbonate [Tums] 1,000 mg PO TID PRN 09/23/20 [History] Cyclobenzaprine [Flexeril] 10 mg PO HS 09/23/20 [History] Ferrous Sulfate [Iron (65 MG Elemental)] 325 mg PO DAILY 09/23/20 [History] Fluticasone/Salmeterol [Advair 250-50 Diskus] 1 puff INHALATION RT-BID 09/23/20 [History] Omeprazole 20 mg PO DAILY 09/23/20 [History] PARoxetine [Paxil] 20 mg PO DAILY 09/23/20 [History] Tiotropium Endeavor [Spiriva] 1 cap INHALATION RT-DAILY@1200 09/23/20 [History] clonazePAM [KlonoPIN] 0.5 mg PO BID PRN 09/23/20 [History] Aspirin 325 mg PO DAILY #30 tab 09/27/20 [Rx] Enoxaparin [Lovenox] 60 mg SQ Q12H 42 Days #84 syringe 10/26/20 [Rx] Ascorbic Acid [Vitamin C] 1,000 mg PO DAILY #30 tab 10/27/20 [Rx] Cholecalciferol [Vitamin D3 (25 Mcg = 1000 Iu)] 25 mcg PO DAILY #30 tablet 10/27/20 [Rx] Melatonin 5 mg PO HS tablet 10/27/20 [Rx] Zinc Sulfate [Orazinc] 220 mg PO DAILY #30 cap 10/27/20 [Rx] predniSONE 10 mg PO DAILY #30 tab 10/27/20 [Rx] Follow up Appointment(s)/Referral(s): Mikhail Masters MD [Primary Care Provider] - 10/31/20 11:15 am (Please call the office when arrive - to check in from your vehicle. Nurse will come and collect you from the vehicle when ready.) Teri Chen MD [STAFF PHYSICIAN] - 12/06/20 11:15 am Patient Instructions/Handouts: Enoxaparin (By injection), Coronavirus Disease 2019 (COVID-19), ARDS (Acute Respiratory Distress Syndrome) (GEN) Discharge Disposition: HOME SELF-CARE
== END 2020-10-27 16:21 | disposition home or self-care (01) | DRG 177 ==
LOC: EC 16:48 → 4SSUR 19:29
PROVIDERS: ADMIT Hospitalist; ATTEND Hospitalist
PROC: XW033E5 Introduction of Remdesivir Anti-infective into Peripheral Vein, Percutaneous Approach, New Technology Group 5 (ICD-10-PCS; principal; 2020-10-22)
PROC: XW13325 Transfusion of Convalescent Plasma (Nonautologous) into Peripheral Vein, Percutaneous Approach, New Technology Group 5 (ICD-10-PCS; 2020-10-23)
DX: U07.1 COVID-19 (principal); J80 Acute respiratory distress syndrome; J12.82 Pneumonia due to coronavirus disease 2019; D68.62 Lupus anticoagulant syndrome; C91.10 Chronic lymphocytic leukemia of B-cell type not having achieved remission; Q93.9 Deletion from autosomes, unspecified; R45.851 Suicidal ideations; J43.9 Emphysema, unspecified; F41.8 Other specified anxiety disorders; K21.9 Gastro-esophageal reflux disease without esophagitis; Z79.82 Long term (current) use of aspirin; Z79.899 Other long term (current) drug therapy; Z87.891 Personal history of nicotine dependence; D64.9 Anemia, unspecified; Z90.49 Acquired absence of other specified parts of digestive tract; Z60.2 Problems related to living alone; R59.0 Localized enlarged lymph nodes; Z88.0 Allergy status to penicillin
CPT/HCPCS: 36415; 71045; 71046; 71275; 80053; 82550; 82607; 82728; 82747; 82784; 83010; 83540; 83550; 83605; 83615; 83630; 83735; 83880; 83921; 84145; 84484; 85025; 85379; 85610; 85730; 86140; 86850; 86900; 86901; 87040; 87045; 87046; 87324; 87635; 93005; 93970; 94640; 94760; 96361; 96374; 99291

== ENCOUNTER 2020-11-01 15:58 | Emergency (ER) | payer OTHER ==
[2020-11-01 16:09] VITALS: BP 145/73; PULSE 89; RESP 16; TEMP 98.5
[2020-11-01] MEDS ORDERED: LIDOCAINE/EPINEPHR/TETRACAINE 5 ML BOTTLE TOPICAL ONE ×3 (16:33→17:13)
--- NOTE | 2020-11-01 17:03 | ED ---
ENT HPI - General Chief complaint: Dental/Oral Stated complaint: bit tongue/bleeding Time Seen by Provider: 11/01/20 16:13 Source: patient, RN notes reviewed Mode of arrival: ambulatory Limitations: no limitations - History of Present Illness Initial comments: This a 60-year-old male presents emergency Department chief complaint of bleeding from his tongue. Patient states that he x-ray dizziness tongue few hours ago states the bleeding has not subsided. Patient states he's only put gauze or a has not put much pressure. Patient does admit that his been on Lovenox recently secondary to having Covid denies having on room was more DVT. Patient states she's had this happen the past where he had have sutures placed. Patient offers no complaints. - Related Data Home Medications Medication Instructions Recorded Confirmed Albuterol Sulfate [Proair Hfa] 2 puff INHALATION RT-QID PRN 09/23/20 10/22/20 Bismuth Subsalicylate 262 mg PO Q6H PRN 09/23/20 10/22/20 [Pepto-Bismol] Calcium Carbonate [Tums] 1,000 mg PO TID PRN 09/23/20 10/22/20 Cyclobenzaprine [Flexeril] 10 mg PO HS 09/23/20 10/22/20 Ferrous Sulfate [Iron (65 MG 325 mg PO DAILY 09/23/20 10/22/20 Elemental)] Fluticasone/Salmeterol [Advair 1 puff INHALATION RT-BID 09/23/20 10/22/20 250-50 Diskus] Omeprazole 20 mg PO DAILY 09/23/20 10/22/20 PARoxetine [Paxil] 20 mg PO DAILY 09/23/20 10/22/20 Tiotropium Spencer [Spiriva] 1 cap INHALATION RT-DAILY@1200 09/23/20 10/22/20 clonazePAM [KlonoPIN] 0.5 mg PO BID PRN 09/23/20 10/22/20 Previous Rx's Medication Instructions Recorded Aspirin 325 mg PO DAILY #30 tab 09/27/20 Enoxaparin [Lovenox] 60 mg SQ Q12H 42 Days #84 syringe 10/26/20 Ascorbic Acid [Vitamin C] 1,000 mg PO DAILY #30 tab 10/27/20 Cholecalciferol [Vitamin D3 (25 25 mcg PO DAILY #30 tablet 10/27/20 Mcg = 1000 Iu)] Melatonin 5 mg PO HS tablet 10/27/20 Zinc Sulfate [Orazinc] 220 mg PO DAILY #30 cap 10/27/20 predniSONE 10 mg PO DAILY #30 tab 10/27/20 Allergies Allergy/AdvReac Type Severity Reaction Status Date / Time Penicillins Allergy Unknown Verified 11/01/20 16:10 Childhood Review of Systems ROS Statement: Those systems with pertinent positive or pertinent negative responses have been documented in the HPI. ROS Other: All systems not noted in ROS Statement are negative. Past Medical History Past Medical History: Cancer Additional Past Medical History / Comment(s): Chronic lymphocytic leukemia, emphysema, plueral effusion 09/23/2020 History of Any Multi-Drug Resistant Organisms: None Reported Past Surgical History: Appendectomy Past Anesthesia/Blood Transfusion Reactions: No Reported Reaction Past Psychological History: Anxiety, Depression Smoking Status: Former smoker Past Alcohol Use History: None Reported Past Drug Use History: Marijuana General Exam Limitations: no limitations General appearance: alert, in no apparent distress Head exam: Present: atraumatic, normocephalic, normal inspection Eye exam: Present: normal appearance, PERRL, EOMI. Absent: scleral icterus, conjunctival injection, periorbital swelling ENT exam: Present: mucous membranes moist, TM's normal bilaterally. Absent: normal exam, normal oropharynx (Small puncture wound noted on the right side of the tongue there is no noted large laceration that needs closure) Neck exam: Present: normal inspection, full ROM. Absent: tenderness, meningismus, lymphadenopathy Respiratory exam: Present: normal lung sounds bilaterally. Absent: respiratory distress, wheezes, rales, rhonchi, stridor Cardiovascular Exam: Present: regular rate, normal rhythm, normal heart sounds. Absent: systolic murmur, diastolic murmur, rubs, gallop, clicks Course Vital Signs 11/01/20 16:03 Temperature 98.5 F Pulse Rate 89 Respiratory 16 Rate Blood Pressure 145/73 O2 Sat by Pulse 97 Oximetry Procedures - Procedures Initial comment: Patient held let solution over the wound which minimally improved his symptoms. One mL of lidocaine was injected over the area and pressure was applied and which symptoms have greatly improved Medical Decision Making - Medical Decision Making Patient presented for bleeding from his tongue. Patient's had bleeding for several hours. Patient's bleeding is improved after injection of the site. Patient feels comfortable with discharge she'll continue ice, pressure over the area and return for any worsening changing symptoms. Patient is on Lovenox for slightly after having Covid. Patient will discontinue Lovenox as started by dr serrano. Patient will restart after 2 days in the bleeding Disposition Clinical Impression: Open wound of tongue Disposition: HOME SELF-CARE Condition: Stable Instructions (If sedation given, give patient instructions): Laceration (ED) Additional Instructions: Continued to apply pressure and ice over the area. Please return to the Emergency Department if symptoms worsen or any other concerns. Is patient prescribed a controlled substance at d/c from ED?: No Referrals: Mikhail Masters MD [Primary Care Provider] - 1-2 days Time of Disposition: 18:57
[2020-11-01] MEDS ORDERED: LIDOCAINE 1%-EPI 1:100,000 20 ML VIAL SQ STA (17:54)
== END 2020-11-01 19:10 | disposition home or self-care (01) ==
LOC: EC 15:58
DX: S01.532A Puncture wound without foreign body of oral cavity, initial encounter (principal); F41.9 Anxiety disorder, unspecified; F32.9 Major depressive disorder, single episode, unspecified; J43.9 Emphysema, unspecified; Z79.51 Long term (current) use of inhaled steroids; Z79.899 Other long term (current) drug therapy; Z88.0 Allergy status to penicillin; Z85.6 Personal history of leukemia; Z87.891 Personal history of nicotine dependence; Z90.49 Acquired absence of other specified parts of digestive tract; X58.XXXA Exposure to other specified factors, initial encounter
CPT/HCPCS: 99282

== ENCOUNTER 2020-11-18 17:04 | Inpatient (IN) | payer OTHER ==
[2020-11-18] MEDS ORDERED: PANTOPRAZOLE 40 MG/10 ML VIAL IVP STA (17:28)
--- NOTE | 2020-11-18 17:34 | ED ---
General Adult HPI - General Chief complaint: Shortness of Breath Stated complaint: MIRIAM Time Seen by Provider: 11/18/20 17:16 Source: patient, RN notes reviewed Mode of arrival: wheelchair Limitations: no limitations - History of Present Illness Initial comments: Patient is a pleasant 60-year-old male presenting to the emergency Department with complaints of difficulty breathing. Onset of symptoms was yesterday. Patient does have history of CLL and is currently being watched with Dr. Chen. Patient does admit to having some dark stools recently however appeared somewhat normal today. Patient does feel generally fatigued. No isolated area of we akness. No fevers. No cough. Patient did have huff virus infection 1 month ago however did feel like he was doing better following that. Patient does admit that other people have also felt he looked pale. Patient has not been taking his blood thinners recently because he has occasionally that his mouth/tongue and had some bleeding - Related Data Home Medications Medication Instructions Recorded Confirmed Albuterol Sulfate [Proair Hfa] 2 puff INHALATION RT-QID PRN 09/23/20 11/18/20 Bismuth Subsalicylate 262 mg PO Q6H PRN 09/23/20 11/18/20 [Pepto-Bismol] Calcium Carbonate [Tums] 1,000 mg PO TID PRN 09/23/20 11/18/20 Cyclobenzaprine [Flexeril] 10 mg PO HS 09/23/20 11/18/20 Ferrous Sulfate [Iron (65 MG 325 mg PO DAILY 09/23/20 11/18/20 Elemental)] Fluticasone/Salmeterol [Advair 1 puff INHALATION RT-BID 09/23/20 11/18/20 250-50 Diskus] Omeprazole 20 mg PO DAILY 09/23/20 11/18/20 PARoxetine [Paxil] 20 mg PO DAILY 09/23/20 11/18/20 Tiotropium [place] [Spiriva] 1 cap INHALATION RT-DAILY@1200 09/23/20 11/18/20 clonazePAM [KlonoPIN] 0.5 mg PO BID PRN 09/23/20 11/18/20 Previous Rx's Medication Instructions Recorded Aspirin 325 mg PO DAILY #30 tab 09/27/20 Enoxaparin [Lovenox] 60 mg SQ Q12H 42 Days #84 syringe 10/26/20 Ascorbic Acid [Vitamin C] 1,000 mg PO DAILY #30 tab 10/27/20 Cholecalciferol [Vitamin D3 (25 25 mcg PO DAILY #30 tablet 10/27/20 Mcg = 1000 Iu)] Melatonin 5 mg PO HS tablet 10/27/20 Zinc Sulfate [Orazinc] 220 mg PO DAILY #30 cap 10/27/20 Allergies Allergy/AdvReac Type Severity Reaction Status Date / Time Penicillins Allergy Unknown Verified 11/18/20 18:47 Childhood Review of Systems ROS Statement: Those systems with pertinent positive or pertinent negative responses have been documented in the HPI. ROS Other: All systems not noted in ROS Statement are negative. Constitutional: Denies: fever Eyes: Denies: eye pain ENT: Denies: ear pain Respiratory: Reports: dyspnea. Denies: cough Cardiovascular: Denies: chest pain Endocrine: Reports: fatigue Gastrointestinal: Reports: melena. Denies: abdominal pain, nausea, vomiting Genitourinary: Denies: dysuria Musculoskeletal: Denies: back pain Skin: Denies: rash Neurological: Denies: headache Past Medical History Past Medical History: Cancer Additional Past Medical History / Comment(s): Chronic lymphocytic leukemia, emphysema, plueral effusion 09/23/2020 History of Any Multi-Drug Resistant Organisms: None Reported Past Surgical History: Appendectomy Past Anesthesia/Blood Transfusion Reactions: No Reported Reaction Past Psychological History: Anxiety, Depression Smoking Status: Former smoker Past Alcohol Use History: None Reported Past Drug Use History: Marijuana General Exam Limitations: no limitations General appearance: alert, in no apparent distress Head exam: Present: atraumatic Eye exam: Present: other (Pale conjunctiva) ENT exam: Present: normal oropharynx Neck exam: Present: normal inspection Respiratory exam: Present: normal lung sounds bilaterally Cardiovascular Exam: Present: regular rate, normal rhythm GI/Abdominal exam: Present: soft. Absent: distended, tenderness Rectal exam: Present: normal rectal tone. Absent: black stool, bloody stool Neurological exam: Present: alert Psychiatric exam: Present: normal affect, normal mood Skin exam: Present: pallor Course Vital Signs 11/18/20 17:06 Temperature 98.4 F Pulse Rate 93 Respiratory 20 Rate Blood Pressure 96/61 O2 Sat by Pulse 100 Oximetry EKG Findings - EKG Comments: EKG Findings:: Normal sinus rhythm 84. OR 170. QRS 90. QT 372. QTC 439. Normal axis. Normal QRS. No acute ST change. Medical Decision Making - Medical Decision Making Patient reevaluated and updated. Patient ordered blood transfusion. Dr. Singer has been paged for admission, covering for Dr. Masters. Oncology will also be placed on consult. GI will also be placed on consult - Lab Data Result diagrams: 11/18/20 17:36 11/18/20 17:36 Lab Results 11/18/20 11/18/20 11/18/20 Range/Units 17:30 17:36 17:36 WBC 15.9 H (3.8-10.6) k/uL RBC 2.47 L (4.30-5.90) m/uL Hgb 6.5 L* D (13.0-17.5) gm/dL Hct 20.7 L (39.0-53.0) % MCV 84.2 D (80.0-100.0) fL MCH 26.2 (25.0-35.0) pg MCHC 31.2 (31.0-37.0) g/dL RDW 19.9 H (11.5-15.5) % Plt Count 400 (150-450) k/uL MPV 7.1 Neutrophils % (Manual) 13 % Lymphocytes % (Manual) 85 % Monocytes % (Manual) 2 % Metamyelocytes % 1 % Neutrophils # (Manual) 2.07 (1.3-7.7) k/uL Lymphocytes # (Manual) 13.52 H (1.0-4.8) k/uL Monocytes # (Manual) 0.32 (0-1.0) k/uL Metamyelocytes # (Man) 0.16 H (0) k/uL Nucleated RBCs 1 H (0-0) /100 WBC Manual Slide Review Performed Hypochromasia Marked Poikilocytosis Moderate Anisocytosis Slight Microcytosis Slight PT 18.8 H (9.0-12.0) sec INR 1.9 H (<1.2) APTT 48.7 H (22.0-30.0) sec Sodium (137-145) mmol/L Potassium (3.5-5.1) mmol/L Chloride (98-107) mmol/L Carbon Dioxide (22-30) mmol/L Anion Gap mmol/L BUN (9-20) mg/dL Creatinine (0.66-1.25) mg/dL Est GFR (CKD-EPI)AfAm (>60 ml/min/1.73 sqM) Est GFR (CKD-EPI)NonAf (>60 ml/min/1.73 sqM) Glucose (74-99) mg/dL Plasma Lactic Acid Justin (0.7-2.0) mmol/L Calcium (8.4-10.2) mg/dL Total Bilirubin (0.2-1.3) mg/dL AST (17-59) U/L ALT (4-49) U/L Alkaline Phosphatase (38-126) U/L Troponin I (0.000-0.034) ng/mL C-Reactive Protein (<10.0) mg/L NT-Pro-B Natriuret Pep pg/mL Total Protein (6.3-8.2) g/dL Albumin (3.5-5.0) g/dL Stool Occult Blood (Negative) Blood Type A Negative Blood Type Recheck A Neg Bld Type Recheck Status No Antibody Screen NEGATIVE Spec Expiration Date 11/21/2020 - 232911/18/20 11/18/20 11/18/20 Range/Units 17:36 17:36 17:36 WBC (3.8-10.6) k/uL RBC (4.30-5.90) m/uL Hgb (13.0-17.5) gm/dL Hct (39.0-53.0) % MCV (80.0-100.0) fL MCH (25.0-35.0) pg MCHC (31.0-37.0) g/dL RDW (11.5-15.5) % Plt Count (150-450) k/uL MPV Neutrophils % (Manual) % Lymphocytes % (Manual) % Monocytes % (Manual) % Metamyelocytes % % Neutrophils # (Manual) (1.3-7.7) k/uL Lymphocytes # (Manual) (1.0-4.8) k/uL Monocytes # (Manual) (0-1.0) k/uL Metamyelocytes # (Man) (0) k/uL Nucleated RBCs (0-0) /100 WBC Manual Slide Review Hypochromasia Poikilocytosis Anisocytosis Microcytosis PT (9.0-12.0) sec INR (<1.2) APTT (22.0-30.0) sec Sodium 134 L (137-145) mmol/L Potassium 3.9 (3.5-5.1) mmol/L Chloride 104 (98-107) mmol/L Carbon Dioxide 22 (22-30) mmol/L Anion Gap 8 mmol/L BUN 16 (9-20) mg/dL Creatinine 1.10 (0.66-1.25) mg/dL Est GFR (CKD-EPI)AfAm 83 (>60 ml/min/1.73 sqM) Est GFR (CKD-EPI)NonAf 72 (>60 ml/min/1.73 sqM) Glucose 148 H (74-99) mg/dL Plasma Lactic Acid Justin 2.0 (0.7-2.0) mmol/L Calcium 8.9 (8.4-10.2) mg/dL Total Bilirubin 0.6 (0.2-1.3) mg/dL AST 24 (17-59) U/L ALT 13 (4-49) U/L Alkaline Phosphatase 70 (38-126) U/L Troponin I <0.012 (0.000-0.034) ng/mL C-Reactive Protein <5.0 (<10.0) mg/L NT-Pro-B Natriuret Pep pg/mL Total Protein 5.7 L (6.3-8.2) g/dL Albumin 3.5 (3.5-5.0) g/dL Stool Occult Blood (Negative) Blood Type Blood Type Recheck Bld Type Recheck Status Antibody Screen Spec Expiration Date 11/18/20 11/18/20 Range/Units 17:36 17:36 WBC (3.8-10.6) k/uL RBC (4.30-5.90) m/uL Hgb (13.0-17.5) gm/dL Hct (39.0-53.0) % MCV (80.0-100.0) fL MCH (25.0-35.0) pg MCHC (31.0-37.0) g/dL RDW (11.5-15.5) % Plt Count (150-450) k/uL MPV Neutrophils % (Manual) % Lymphocytes % (Manual) % Monocytes % (Manual) % Metamyelocytes % % Neutrophils # (Manual) (1.3-7.7) k/uL Lymphocytes # (Manual) (1.0-4.8) k/uL Monocytes # (Manual) (0-1.0) k/uL Metamyelocytes # (Man) (0) k/uL Nucleated RBCs (0-0) /100 WBC Manual Slide Review Hypochromasia Poikilocytosis Anisocytosis Microcytosis PT (9.0-12.0) sec INR (<1.2) APTT (22.0-30.0) sec Sodium (137-145) mmol/L Potassium (3.5-5.1) mmol/L Chloride (98-107) mmol/L Carbon Dioxide (22-30) mmol/L Anion Gap mmol/L BUN (9-20) mg/dL Creatinine (0.66-1.25) mg/dL Est GFR (CKD-EPI)AfAm (>60 ml/min/1.73 sqM) Est GFR (CKD-EPI)NonAf (>60 ml/min/1.73 sqM) Glucose (74-99) mg/dL Plasma Lactic Acid Justin (0.7-2.0) mmol/L Calcium (8.4-10.2) mg/dL Total Bilirubin (0.2-1.3) mg/dL AST (17-59) U/L ALT (4-49) U/L Alkaline Phosphatase (38-126) U/L Troponin I (0.000-0.034) ng/mL C-Reactive Protein (<10.0) mg/L NT-Pro-B Natriuret Pep 258 pg/mL Total Protein (6.3-8.2) g/dL Albumin (3.5-5.0) g/dL Stool Occult Blood Positive (Negative) Blood Type Blood Type Recheck Bld Type Recheck Status Antibody Screen Spec Expiration Date Critical Care Time Critical Care Time: Yes Total Critical Care Time: 32 Disposition Clinical Impression: GI hemorrhage, Symptomatic anemia Disposition: ADMITTED IP TO THIS HOSP Condition: Serious Is patient prescribed a controlled substance at d/c from ED?: No Referrals: Mikhail Masters MD [Primary Care Provider] - 1-2 days Decision Time: 19:04
[2020-11-18 17:45] LABS: Anisocytosis Slight; HCT 20.7 % (39.0-53.0); Hypochromasia Marked; MCH 26.2 pg (25.0-35.0); MCHC 31.2 g/dL (31.0-37.0); MCV 84.2 fL (80.0-100.0); Mean Platelet Volume 7.1; Microcytosis Slight; Platelet Count 400 k/uL (150-450); Poikilocytosis Moderate; RBC 2.47 m/uL (4.30-5.90); RDW 19.9 % (11.5-15.5)
[2020-11-18 17:56] LABS: INR 1.9 (<1.2); Partial Thromboplastin Time 48.7 sec (22.0-30.0); Prothrombin Time 18.8 sec (9.0-12.0)
[2020-11-18 17:59] LABS: ALT 13 U/L (4-49); AST 24 U/L (17-59); African American GFR (CKD) 83 (>60 ml/min/1.73 sqM); Albumin 3.5 g/dL (3.5-5.0); Alkaline Phosphatase 70 U/L (38-126); Anion Gap 8 mmol/L; Blood Urea Nitrogen 16 mg/dL (9-20); C Reactive Protein <5.0 mg/L (<10.0); Calcium 8.9 mg/dL (8.4-10.2); Carbon Dioxide 22 mmol/L (22-30); Chloride 104 mmol/L (98-107); Glucose 148 mg/dL (74-99); HGB 6.5 gm/dL (13.0-17.5); Non-African American GFR(CKD) 72 (>60 ml/min/1.73 sqM); Potassium 3.9 mmol/L (3.5-5.1); Sodium 134 mmol/L (137-145); Total Bilirubin 0.6 mg/dL (0.2-1.3); Total Protein 5.7 g/dL (6.3-8.2)
[2020-11-18 18:12] LABS: Lymphocytes # (M) 13.52 k/uL (1.0-4.8); Metamyelocytes # (M) 0.16 k/uL (0); Metamyelocytes % 1 %; Monocytes # (M) 0.32 k/uL (0-1.0); Neutrophils # (M) 2.07 k/uL (1.3-7.7); Neutrophils % (M) 13 %; Nucleated Red Blood Cells 1 /100 WBC (0-0); Total Cells Counted 200; WBC 15.9 k/uL (3.8-10.6)
--- NOTE | 2020-11-18 18:14 | XR ---
EXAMINATION TYPE: XR chest 2V DATE OF EXAM: 11/18/2020 COMPARISON: 10/26/2020 HISTORY: Short of breath. Fatigue. TECHNIQUE: 2 views FINDINGS: Heart and mediastinum are normal. Lungs are clear. Diaphragm is normal. Bony thorax appears normal. IMPRESSION: Normal chest. Normal heart. There is clearing of the left lower lobe pneumonia compared t o old exam.
[2020-11-18] MEDS ORDERED: NALOXONE 0.4 MG/ML 1 ML VIAL IV PRN (19:04)
[2020-11-18] MEDS ORDERED: clonazePAM 0.5 MG TAB PO PRN (19:06)
[2020-11-18] MEDS: ALBUTEROL NEBULIZED 2.5 MG/3 ML INHALATION PRN (20:30)
[2020-11-18] MEDS: SODIUM CHLORIDE 0.9% 1,000 ML IV SCH (21:11)
[2020-11-18] MEDS: CYCLOBENZAPRINE 10 MG TAB PO SCH (22:27)
[2020-11-18] MEDS: MELATONIN 5 MG TABLET PO SCH (22:27)
[2020-11-19] MEDS: ALBUTEROL NEBULIZED 2.5 MG/3 ML INHALATION PRN (06:58)
[2020-11-19] MEDS: FERROUS SULFATE 325 MG TAB PO SCH (09:06)
[2020-11-19] MEDS: PANTOPRAZOLE 40 MG/10 ML VIAL IV SCH (09:06)
[2020-11-19] MEDS: ALBUTEROL HFA INHALER INHALATION PRN (10:42)
[2020-11-19] MEDS ORDERED: CALCIUM CARBONATE 500 MG CHEWABLE PO PRN (11:08)
[2020-11-19] MEDS: SYMBICORT 80-4.5 MCG INHALER INHALATION SCH (11:41)
[2020-11-19] MEDS: TIOTROPIUM 2.5 MCG INHALER INHALATION SCH (11:42)
[2020-11-19] MEDS: SODIUM CHLORIDE 0.9% 1,000 ML IV SCH (11:45)
[2020-11-19] MEDS: ZINC SULFATE 220 MG CAP PO SCH (11:46)
[2020-11-19] MEDS: PARoxetine 20 MG TAB PO SCH (11:46)
[2020-11-19] MEDS: CHOLECALCIFEROL 25 MCG (1000 IU) TABLET PO SCH (11:46)
[2020-11-19] MEDS ORDERED: ONDANSETRON 4 MG/2 ML VIAL IVP PRN (13:14)
[2020-11-19 18:04] LABS: Basophils # (A) 0.03 X 10*3/uL (0.00-0.10); Basophils % (A) 0.2 %; Eosinophils # (A) 0.31 X 10*3/uL (0.04-0.35); Eosinophils % (A) 2.3 %; HCT 22.4 % (39.6-50.0); HGB 6.4 g/dL (13.0-17.0); Lymphocytes # (A) 10.81 X 10*3/uL (0.90-5.00); Lymphocytes % (A) 78.6 %; MCH 25.9 pg (27.0-32.0); MCHC 28.6 g/dL (32.0-37.0); MCV 90.7 fL (80.0-97.0); Mean Platelet Volume 8.8 fL (9.5-12.2); Monocytes # (A) 0.32 X 10*3/uL (0.20-1.00); Monocytes % (A) 2.3 %; Neutrophils # (A) 2.19 X 10*3/uL (1.80-7.70); Neutrophils % (A) 15.9 %; Platelet Count 304 X 10*3/uL (140-440); RBC 2.47 X 10*6/uL (4.40-5.60); RDW 19.9 % (11.5-14.5); WBC 13.75 X 10*3/uL (4.50-10.00)
--- NOTE | 2020-11-19 20:29 | P.HPIM ---
History of Present Illness H&P Date: 11/19/20 Chief Complaint: Dark stools History of presenting complaint: This is a pleasant 60-year-old patient of Dr. Renny Masters. Chronic stable medical conditions include anxiety depression, GERD, COPD, known CLL with a baseline count running around 50. [address] Faulkner. Positive lupus anticoagulant Admitted to the hospital in October 22 with COVID 19 pneumonia. Because of high risk of clotting was discharged home on Lovenox. Patient now presents with dark stools for about 2 weeks. Some nausea. Tired rundown dizzy lightheaded. No fever no chills. Found to have a hemoglobin of 6.5. 1 unit of blood was ordered in the ER. Patient's Lovenox has been now held Review of systems: GEN.: Tired EYES: None HEENT: None NECK: None RESPIRATORY: None CARDIOVASCULAR: None GASTROINTESTINAL: As above GENITOURINARY: None MUSCULOSKELETAL: Generalized achiness LYMPHATICS: None HEMATOLOGICAL: None PSYCHIATRY: None NEUROLOGICAL: None Past medical history to include: Chronic lymphoid leukemia, COPD, anxiety, GERD, lupus anticoagulant positive. COVID 19 pneumonia Social history: Patient smoked about a pack and half a day for close to 42 years stopped recently. Lives alone. Employed for [employer] Family history: Reviewed, noncontributory to presentation Physical examination: VITAL SIGNS: 98.4, 93, 20, 96/61, 100% room air GENERAL: BMI 22.6, laying in bed, tired EYES: Pupils equal. Conjunctiva pale. HEENT: External appearance of nose and ears normal, oral cavity grossly normal. NECK: JVD not raised; masses not palpable. HEART: First and second heart sounds are normal; no edema. LUNGS: Respiratory rate increased, decreased breath sounds. ABDOMEN: Soft, nontender, liver spleen not palpable, no masses palpable. PSYCH: Alert and oriented x3; mood and affect anxious NEUROLOGICAL: Cranial nerves grossly intact; no facial asymmetry, power and sensation grossly intact. LYMPHATICS: No Lymph nodes palpable in the neck and submandibular area. INVESTIGATIONS, reviewed in the clinical context: WBC 15.9 hemoglobin 6.5 platelets 400 pro time 18.8 PTT 48.7 potassium 3.9 creatinine 1.10 CRP less than 5 stool occult blood positive Coronavirus [PCR]-detected Chest x-ray film personally reviewed by me-no obvious infiltrate Previous testing: Lupus anticoagulant APTT increased at 104 2% anticoagulant PTT mix increased at 71 Diluted Eric viper venom increased at 58 Lupus Hexagonal phase positive LA DRVVT confirm-negative DRVVT 50:50-increased at 58 Rheumatoid factor XII Cyclical Citra [place]rien peptide IgG 7.6 Cyclic central peptide positive ANAs screen [place]NAs món[place] [id number] In a pattern that if oral Double-stranded DNA antibody negative Assessment and plan: -Acute GI bleed, on a patient who has been on Lovenox following COVID 19 pneumonia and being a high risk of clotting. Lovenox now being held. GI co nsulted. -Acute severe blood loss anemia hemoglobin 6.4. Symptomatic. 1 unit of blood was given in the ER. -Chronic lymphocytic leukemia. Hematology consulted -GERD -Anxiety depression not otherwise specified -Positive lupus anticoagulant. High risk of coagulation. -Patient was diagnosed with COVID 19 pneumonia on August 21. Was treated. Still positive. Asymptomatic. No respiratory symptoms. Pulse ox 100% on room air. Precautions Care was discussed with the patient. Questions were answered. Follow labs. Expect the patient to be in the hospital at least for 2 nights. Past Medical History Past Medical History: Cancer Additional Past Medical History / Comment(s): Chronic lymphocytic leukemia, emphysema, plueral effusion 09/23/2020 History of Any Multi-Drug Resistant Organisms: None Reported Past Surgical History: Appendectomy Past Anesthesia/Blood Transfusion Reactions: No Reported Reaction Past Psychological History: Anxiety, Depression Additional Psychological History / Comment(s): pt states he gets occassional suicidal thoughts but doesn't have a plan and wants a plan Smoking Status: Former smoker Past Alcohol Use History: None Reported Past Drug Use History: Marijuana Medications and Allergies Home Medications Medication Instructions Recorded Confirmed Type Albuterol Sulfate [Proair Hfa] 2 puff INHALATION RT-QID PRN 09/23/20 11/18/20 History Bismuth Subsalicylate 262 mg PO Q6H PRN 09/23/20 11/18/20 History [Pepto-Bismol] Calcium Carbonate [Tums] 1,000 mg PO TID PRN 09/23/20 11/18/20 History Cyclobenzaprine [Flexeril] 10 mg PO HS 09/23/20 11/18/20 History Ferrous Sulfate [Iron (65 MG 325 mg PO DAILY 09/23/20 11/18/20 History Elemental)] Fluticasone/Salmeterol [Advair 1 puff INHALATION RT-BID 09/23/20 11/18/20 History 250-50 Diskus] Omeprazole 20 mg PO DAILY 09/23/20 11/18/20 History PARoxetine [Paxil] 20 mg PO DAILY 09/23/20 11/18/20 History Tiotropium [place] [Spiriva] 1 cap INHALATION RT-DAILY@1200 09/23/20 11/18/20 History clonazePAM [KlonoPIN] 0.5 mg PO BID PRN 09/23/20 11/18/20 History Aspirin 325 mg PO DAILY #30 tab 09/27/20 11/18/20 Rx Enoxaparin [Lovenox] 60 mg SQ Q12H 42 Days #84 syringe 10/26/20 11/18/20 Rx Ascorbic Acid [Vitamin C] 1,000 mg PO DAILY #30 tab 10/27/20 11/18/20 Rx Cholecalciferol [Vitamin D3 (25 25 mcg PO DAILY #30 tablet 10/27/20 11/18/20 Rx Mcg = 1000 Iu)] Melatonin 5 mg PO HS tablet 10/27/20 11/18/20 Rx Zinc Sulfate [Orazinc] 220 mg PO DAILY #30 cap 10/27/20 11/18/20 Rx Allergies Allergy/AdvReac Type Severity Reaction Status Date / Time Penicillins Allergy Unknown Verified 11/18/20 18:47 Childhood Physical Exam Vitals: Vital Signs Temp Pulse Pulse Resp BP BP Pulse Ox 11/19/20 08:45 18 11/19/20 08:32 97.4 F L 86 18 155/72 99 11/19/20 07:12 80 11/19/20 07:01 88 11/19/20 05:35 97.6 F 82 14 100/67 98 11/19/20 04:40 97.5 F L 81 16 91/46 94 L 11/19/20 00:58 98.1 F 74 18 104/62 100 11/18/20 23:48 98.6 F 79 18 107/62 100 11/18/20 23:18 97.8 F 81 18 102/66 100 11/18/20 23:08 97.7 F 78 18 100/62 100 11/18/20 22:10 97.3 F L 87 16 102/64 98 11/18/20 21:10 77 18 114/81 100 11/18/20 20:42 80 11/18/20 20:36 97 11/18/20 20:30 80 11/18/20 19:30 82 18 104/61 100 11/18/20 19:00 85 18 102/55 100 11/18/20 18:30 111/58 100 11/18/20 18:00 86 18 106/67 100 11/18/20 17:36 100 11/18/20 17:06 98.4 F 93 20 96/61 100 Intake and Output 11/18/20 11/19/20 11/19/20 22:59 06:59 14:59 Intake Total 310 Balance 310 Intake: Blood Product 310 Rc As-1 Unit 310 [id number] Other: Voiding Method Toilet Toilet Weight 63.503 kg Results CBC & Chem 7: 11/19/20 07:33 11/18/20 17:36 Labs: Abnormal Lab Results - Last 24 Hours (Table) 11/18/20 11/18/20 11/18/20 Range/Units 17:30 17:36 17:36 WBC 15.9 H (3.8-10.6) k/uL RBC 2.47 L (4.30-5.90) m/uL Hgb 6.5 L* D (13.0-17.5) gm/dL Hct 20.7 L (39.0-53.0) % RDW 19.9 H (11.5-15.5) % Lymphocytes # (Manual) 13.52 H (1.0-4.8) k/uL Metamyelocytes # (Man) 0.16 H (0) k/uL Nucleated RBCs 1 H (0-0) /100 WBC PT 18.8 H (9.0-12.0) sec INR 1.9 H (<1.2) APTT 48.7 H (22.0-30.0) sec Sodium (137-145) mmol/L Glucose (74-99) mg/dL Total Protein (6.3-8.2) g/dL Coronavirus (PCR) (Not Detectd) Crossmatch See Detail 11/18/20 11/18/20 Range/Units 17:36 20:45 WBC (3.8-10.6) k/uL RBC (4.30-5.90) m/uL Hgb (13.0-17.5) gm/dL Hct (39.0-53.0) % RDW (11.5-15.5) % Lymphocytes # (Manual) (1.0-4.8) k/uL Metamyelocytes # (Man) (0) k/uL Nucleated RBCs (0-0) /100 WBC PT (9.0-12.0) sec INR (<1.2) APTT (22.0-30.0) sec Sodium 134 L (137-145) mmol/L Glucose 148 H (74-99) mg/dL Total Protein 5.7 L (6.3-8.2) g/dL Coronavirus (PCR) Detected A (Not Detectd) Crossmatch Thrombosis Risk Factor Assmnt - Choose All That Apply Any of the Below Risk Factors Present?: Yes Each Factor Represents 1 point: Abnormal pulmonary function (COPD) Other Risk Factors: Yes Each Risk Factor Represents 2 Points: Age 61-74 years, Malignancy Other congenital or acquired thrombophilia - If yes, enter type in comment: No Thrombosis Risk Factor Assessment Total Risk Factor Score: 5 Thrombosis Risk Factor Assessment Level: High Risk
--- NOTE | 2020-11-19 21:10 | P.CONS ---
History of Present Illness - Reason for Consult Consult date: 11/19/20 Anemia, CLL, lupus anticoagulant - History of Present Illness Mr Cochran is a 60 yr old male pt of Dr. Chen who was referred around 11/2019 for persistent leukocytosis/erythrocytosis and thrombocytosis. 09/29/19 C BC revealed total wbc of 41.5K, significant for lymphocytosis, mild basoplilia and monocytosis, Hgb 17.7gm/dl, Hct 56%, plt 433K. 11/21/19 flow cytometry on peripheral blood was consistent with CLL. 11/22/19 CT CAP revealed borderline enlarged axillary and mediastinal nodes, retroperitoneal nodes, largest 2.7x1.5cm, splenomegaly measured 17.5cm. He was put on observation as overall he was asymptomatic with no other labs abnormalities. He was told to keep up with vaccines and reminded that he is at risk for infection. Last seen in [facility] 08/2020, FISH studies show 13q deletion, monosomy 13, no other genetic abnormalities. He was inpt last month with pleural SOB and pleural effusion. Prior to procedure coags showed abnormal INR. Mixing study was not completed due to specimen, pt was lupus anticoagulant immunoglobulin positive. It was discussed with the patient, and the admitting service that this is actually a hypercoagulable state, causing artifactual in vitro elevated coags. Patient was asked to take aspirin as an outpatient Pt was admitted with covid 19, cough, SOB, fever and weakness, On 10/25/20. He was placed on full dose anticoagulation, given underlying lupus anticoagulant, as well as new acute illness which is also associated with high risk of thrombosis. He was discharged on Lovenox, full dose, for 6 weeks. He apparently stopped taking it after a few weeks, Since 11/17/20, because of having bitten his tongue and having some bleeding. Patient was admitted now with some shortness of breath on exertion, and was found to have hemoglobin of 6.5. On further questioning he does endorse possibly some black stools. Review of Systems Constitutional: Reports fatigue Eyes: denies blurred vision, denies pain Ears: deny: decreased hearing, ear discharge, earache, tinnitus Ears, nose, mouth and throat: Reports as per HPI, Denies headache, Denies sore throat Cardiovascular: Reports dyspnea on exertion, Denies chest pain, Denies shortness of breath Respiratory: Reports as per HPI (Recent coronavirus infection), Reports dyspnea Genitourinary: Reports nocturia Musculoskeletal: Denies myalgias Integumentary: Denies pruritus, Denies rash Neurological: Reports weakness Psychiatric: Denies anxiety, Denies depression Endocrine: Reports fatigue Hematologic/Lymphatic: Reports as per HPI, Reports thrombophilia Past Medical History Past Medical History: Cancer Additional Past Medical History / Comment(s): Chronic lymphocytic leukemia, emphysema, plueral effusion 09/23/2020 History of Any Multi-Drug Resistant Organisms: None Reported Past Surgical History: Appendectomy Past Anesthesia/Blood Transfusion Reactions: No Reported Reaction Past Psychological History: Anxiety, Depression Additional Psychological History / Comment(s): pt states he gets occassional suicidal thoughts but doesn't have a plan and wants a plan Smoking Status: Former smoker Past Alcohol Use History: None Reported Past Drug Use History: Marijuana Medications and Allergies Home Medications Medication Instructions Recorded Confirmed Type Albuterol Sulfate [Proair Hfa] 2 puff INHALATION RT-QID PRN 09/23/20 11/18/20 History Bismuth Subsalicylate 262 mg PO Q6H PRN 09/23/20 11/18/20 History [Pepto-Bismol] Calcium Carbonate [Tums] 1,000 mg PO TID PRN 09/23/20 11/18/20 History Cyclobenzaprine [Flexeril] 10 mg PO HS 09/23/20 11/18/20 History Ferrous Sulfate [Iron (65 MG 325 mg PO DAILY 09/23/20 11/18/20 History Elemental)] Fluticasone/Salmeterol [Advair 1 puff INHALATION RT-BID 09/23/20 11/18/20 History 250-50 Diskus] Omeprazole 20 mg PO DAILY 09/23/20 11/18/20 History PARoxetine [Paxil] 20 mg PO DAILY 09/23/20 11/18/20 History Tiotropium [place] [Spiriva] 1 cap INHALATION RT-DAILY@1200 09/23/20 11/18/20 History clonazePAM [KlonoPIN] 0.5 mg PO BID PRN 09/23/20 11/18/20 History Aspirin 325 mg PO DAILY #30 tab 09/27/20 11/18/20 Rx Enoxaparin [Lovenox] 60 mg SQ Q12H 42 Days #84 syringe 02/10/21 03/05/21 Rx Ascorbic Acid [Vitamin C] 1,000 mg PO DAILY #30 tab 10/27/20 11/18/20 Rx Cholecalciferol [Vitamin D3 (25 25 mcg PO DAILY #30 tablet 10/27/20 11/18/20 Rx Mcg = 1000 Iu)] Melatonin 5 mg PO HS tablet 10/27/20 11/18/20 Rx Zinc Sulfate [Orazinc] 220 mg PO DAILY #30 cap 10/27/20 11/18/20 Rx Allergies Allergy/AdvReac Type Severity Reaction Status Date / Time Penicillins Allergy Unknown Verified 11/18/20 18:47 Childhood Physical Exam Vitals: Vital Signs Temp Pulse Pulse Resp BP BP Pulse Ox 11/19/20 08:45 18 11/19/20 08:32 97.4 F L 86 18 155/72 99 11/19/20 07:12 80 11/19/20 07:01 88 11/19/20 05:35 97.6 F 82 14 100/67 98 11/19/20 04:40 97.5 F L 81 16 91/46 94 L 11/19/20 00:58 98.1 F 74 18 104/62 100 11/18/20 23:48 98.6 F 79 18 107/62 100 11/18/20 23:18 97.8 F 81 18 102/66 100 11/18/20 23:08 97.7 F 78 18 100/62 100 11/18/20 22:10 97.3 F L 87 16 102/64 98 11/18/20 21:10 77 18 114/81 100 11/18/20 20:42 80 11/18/20 20:36 97 11/18/20 20:30 80 11/18/20 19:30 82 18 104/61 100 11/18/20 19:00 85 18 102/55 100 11/18/20 18:30 111/58 100 11/18/20 18:00 86 18 106/67 100 11/18/20 17:36 100 11/18/20 17:06 98.4 F 93 20 96/61 100 Intake and Output 11/18/20 11/19/20 11/19/20 22:59 06:59 14:59 Intake Total 310 Balance 310 Intake: Blood Product 310 Rc As-1 Unit 310 [id number] Other: Voiding Method Toilet Toilet Weight 63.503 kg - Constitutional General appearance: no acute distress - EENT Eyes: EOMI, PERRLA ENT: hearing grossly normal, normal oropharynx - Neck Neck: no lymphadenopathy Thyroid: bilateral: normal size - Respiratory Respiratory: bilateral: CTA - Cardiovascular Rhythm: regular Heart sounds: normal: S1, S2 - Gastrointestinal General gastrointestinal: normal bowel sounds, soft - Integumentary Integumentary: normal - Neurologic Neurologic: CNII-XII intact - Musculoskeletal Musculoskeletal: generalized weakness, strength equal bilaterally - Psychiatric Psychiatric: A&O x's 3, appropriate affect Results CBC & Chem 7: 11/19/20 07:33 11/18/20 17:36 Labs: Abnormal Lab Results - Last 24 Hours (Table) 11/18/20 11/18/20 11/18/20 Range/Units 17:30 17:36 17:36 WBC 15.9 H (3.8-10.6) k/uL RBC 2.47 L (4.30-5.90) m/uL Hgb 6.5 L* D (13.0-17.5) gm/dL Hct 20.7 L (39.0-53.0) % RDW 19.9 H (11.5-15.5) % Lymphocytes # (Manual) 13.52 H (1.0-4.8) k/uL Metamyelocytes # (Man) 0.16 H (0) k/uL Nucleated RBCs 1 H (0-0) /100 WBC PT 18.8 H (9.0-12.0) sec INR 1.9 H (<1.2) APTT 48.7 H (22.0-30.0) sec Sodium (137-145) mmol/L Glucose (74-99) mg/dL Total Protein (6.3-8.2) g/dL Coronavirus (PCR) (Not Detectd) Crossmatch See Detail 11/18/20 11/18/20 Range/Units 17:36 20:45 WBC (3.8-10.6) k/uL RBC (4.30-5.90) m/uL Hgb (13.0-17.5) gm/dL Hct (39.0-53.0) % RDW (11.5-15.5) % Lymphocytes # (Manual) (1.0-4.8) k/uL Metamyelocytes # (Man) (0) k/uL Nucleated RBCs (0-0) /100 WBC PT (9.0-12.0) sec INR (<1.2) APTT (22.0-30.0) sec Sodium 134 L (137-145) mmol/L Glucose 148 H (74-99) mg/dL Total Protein 5.7 L (6.3-8.2) g/dL Coronavirus (PCR) Detected A (Not Detectd) Crossmatch Comments: EKG imaging reviewed. Normal sinus rhythm Chest x-ray: report reviewed Assessment and Plan (1) Symptomatic anemia Narrative/Plan: This is a new onset, and given the major change in hemoglobin over a fairly short time, as well as recent and declaration and history of black stools, appears to be most likely due to GI blood loss. This was discussed with the patient. He had stopped anticoagulation just about 3 days ago. - Continue to hold anticoagulation presently - Check labs to rule out other causes, including hemolysis. I will also check iron studies - Patient was advised that he will require upper and lower endoscopic workup. GI has been consulted. The patient has never had endoscopic workup previously. - Continue to monitor and transfuse to keep hemoglobin greater than 7. Assuming other causes such as hemolysis are ruled out, the patient will also need to be started on iron supplementation. Current Visit: Yes Status: Acute Code(s): D64.9 - ANEMIA, UNSPECIFIED SNOMED Code(s): 003346085 (2) Leukemia Narrative/Plan: There appears to be no progression, with no new adenopathy. W BC is actually somewhat lower than baseline. Continue to monitor Current Visit: No Status: Acute Code(s): C95.90 - LEUKEMIA, UNSPECIFIED NOT HAVING ACHIEVED REMISSION SNOMED Code(s): 31342324 (3) Lupus anticoagulant positive Narrative/Plan: The patient had completed nearly 4 weeks of anticoagulation after his recent admission for coronavirus infection. Ideally the patient should be on at least prophylactic anticoagulation during any hospital admission. However as GI blood loss is strongly suspected, that would not be recommended, pending GI workup. Utilize SCDs. Current Visit: No Status: Acute Priority: High Code(s): R76.0 - RAISED ANTIBODY TITER SNOMED Code(s): 99610953
[2020-11-19] MEDS: CYCLOBENZAPRINE 10 MG TAB PO SCH (21:37)
[2020-11-19] MEDS: MELATONIN 5 MG TABLET PO SCH (21:37)
[2020-11-20] MEDS: SYMBICORT 80-4.5 MCG INHALER INHALATION SCH ×3 (02:14→19:28)
[2020-11-20] MEDS: SODIUM CHLORIDE 0.9% 1,000 ML IV SCH ×2 (03:54→11:36)
[2020-11-20] MEDS: TIOTROPIUM 2.5 MCG INHALER INHALATION SCH (07:18)
[2020-11-20] MEDS: ALBUTEROL HFA INHALER INHALATION PRN ×4 (07:18→19:28)
[2020-11-20] MEDS: CHOLECALCIFEROL 25 MCG (1000 IU) TABLET PO SCH (08:24)
[2020-11-20] MEDS: PARoxetine 20 MG TAB PO SCH (08:24)
[2020-11-20] MEDS: FERROUS SULFATE 325 MG TAB PO SCH (08:25)
[2020-11-20] MEDS: PANTOPRAZOLE 40 MG/10 ML VIAL IV SCH (08:25)
[2020-11-20] MEDS: ASCORBIC ACID 500 MG TAB PO SCH (08:25)
[2020-11-20] MEDS: ZINC SULFATE 220 MG CAP PO SCH (08:25)
--- NOTE | 2020-11-20 10:11 | P.CONS ---
History of Present Illness - Reason for Consult Consult date: 11/19/20 Anemia,melena Requesting physician: Gregor Singer - Chief Complaint Difficulty breathing - History of Present Illness 60-year-old male with multiple medical comorbidities including anxiety, depression, GERD, COPD and CLL who presented to the hospital due to complaints of shortness of breath and difficulty breathing. Patient currently follows up in the outpatient setting with hematology/oncology. He does report increasing shortness of breath. The patient states that he has been seen dark-colored stool for approximately 2 weeks. He denies any gross GI bleeding but notes that the bowel movements have been black in color. He denies any abdominal pain, nausea, vomiting, hematemesis or coffee-ground emesis. The patient has not had any prior endoscopy with either EGD or colonoscopy in the past. He denies any history of peptic ulcer disease. He does take omeprazole for GI upset and reports that symptoms of been controlled on this medication. He had a chest x- ray on presentation which was essentially negative for any acute intra-abdominal pathology. Hemoglobin 6.5 on presentation down from his baseline of approximately 9-10 with WBC 15.9, platelet count 400,000, total bilirubin 0.6, alkaline phosphatase 70, AST 24 and ALT 13. Review of Systems REVIEW OF SYSTEMS: CONSTITUTIONAL: Denies any fevers, chills, weight change or fatigue. CARDIOVASCULAR: Denies any chest pain, palpitations high or low blood pressures RESPIRATORY: Denies any cough or hemoptysis but does report shortness of breath orifice with exacerbation. GENITOURINARY: No dysuria or hematuria. MUSCULOSKELETAL: No weakness reported. SKIN: Denies any new rashes or lesions, jaundice or pallor. PSYCHIATRIC: Denies any depression or anxiety currently but does have a history of such at baseline. NEUROLOGY: Denies headache, denies any new focal deficits. EARS/NOSE/THROAT: No recent hearing change, congestion, nasal discharge or sore throat. EYES: No pain in eyes, discharge or change in vision. GASTROINTESTINAL: As per HPI. Past Medical History Past Medical History: Cancer Additional Past Medical History / Comment(s): Chronic lymphocytic leukemia, emphysema, plueral effusion 09/23/2020 History of Any Multi-Drug Resistant Organisms: None Reported Past Surgical History: Appendectomy Past Anesthesia/Blood Transfusion Reactions: No Reported Reaction Past Psychological History: Anxiety, Depression Additional Psychological History / Comment(s): pt states he gets occassional suicidal thoughts but doesn't have a plan and wants a plan Smoking Status: Former smoker Past Alcohol Use History: None Reported Past Drug Use History: Marijuana Additional History: Family history: Reviewed with the patient and noncontributory to current medical presentation. Medications and Allergies Home Medications Medication Instructions Recorded Confirmed Type Albuterol Sulfate [Proair Hfa] 2 puff INHALATION RT-QID PRN 09/23/20 11/18/20 History Bismuth Subsalicylate 262 mg PO Q6H PRN 09/23/20 11/18/20 History [Pepto-Bismol] Calcium Carbonate [Tums] 1,000 mg PO TID PRN 09/23/20 11/18/20 History Cyclobenzaprine [Flexeril] 10 mg PO HS 09/23/20 11/18/20 History Ferrous Sulfate [Iron (65 MG 325 mg PO DAILY 09/23/20 11/18/20 History Elemental)] Fluticasone/Salmeterol [Advair 1 puff INHALATION RT-BID 09/23/20 11/18/20 History 250-50 Diskus] Omeprazole 20 mg PO DAILY 09/23/20 11/18/20 History PARoxetine [Paxil] 20 mg PO DAILY 09/23/20 11/18/20 History Tiotropium [place] [Spiriva] 1 cap INHALATION RT-DAILY@1200 09/23/20 11/18/20 History clonazePAM [KlonoPIN] 0.5 mg PO BID PRN 09/23/20 11/18/20 History Aspirin 325 mg PO DAILY #30 tab 09/27/20 11/18/20 Rx Enoxaparin [Lovenox] 60 mg SQ Q12H 42 Days #84 syringe 10/26/20 11/18/20 Rx Ascorbic Acid [Vitamin C] 1,000 mg PO DAILY #30 tab 10/27/20 11/18/20 Rx Cholecalciferol [Vitamin D3 (25 25 mcg PO DAILY #30 tablet 10/27/20 11/18/20 Rx Mcg = 1000 Iu)] Melatonin 5 mg PO HS tablet 10/27/20 11/18/20 Rx Zinc Sulfate [Orazinc] 220 mg PO DAILY #30 cap 10/27/20 11/18/20 Rx Allergies Allergy/AdvReac Type Severity Reaction Status Date / Time Penicillins Allergy Unknown Verified 11/18/20 18:47 Childhood Physical Exam Vitals: Vital Signs Temp Pulse Pulse Resp BP BP Pulse Ox 11/19/20 08:45 18 11/19/20 08:32 97.4 F L 86 18 155/72 99 11/19/20 07:12 80 11/19/20 07:01 88 11/19/20 05:35 97.6 F 82 14 100/67 98 11/19/20 04:40 97.5 F L 81 16 91/46 94 L 11/19/20 00:58 98.1 F 74 18 104/62 100 11/18/20 23:48 98.6 F 79 18 107/62 100 11/18/20 23:18 97.8 F 81 18 102/66 100 11/18/20 23:08 97.7 F 78 18 100/62 100 11/18/20 22:10 97.3 F L 87 16 102/64 98 11/18/20 21:10 77 18 114/81 100 11/18/20 20:42 80 11/18/20 20:36 97 11/18/20 20:30 80 11/18/20 19:30 82 18 104/61 100 11/18/20 19:00 85 18 102/55 100 11/18/20 18:30 111/58 100 11/18/20 18:00 86 18 106/67 100 11/18/20 17:36 100 11/18/20 17:06 98.4 F 93 20 96/61 100 Intake and Output 11/18/20 11/19/20 11/19/20 22:59 06:59 14:59 Intake Total 310 Balance 310 Intake: Blood Product 310 Rc As-1 Unit 310 [id number] Other: Voiding Method Toilet Toilet Weight 63.503 kg On physical examination, patient appears comfortable in no apparent distress. HEAD: Normocephalic, atraumatic. EYES: No scleral icterus. No conjunctival injection. MOUTH: No lesions, tongue midline. NECK: Trachea midline, no gross abnormalities. CHEST: Clear to auscultation with no wheezing or rhonchi appreciated. HEART: Regular rate and rhythm. ABDOMEN: Soft, obese. Bowel sounds are positive. No organomegaly. No guarding or rigidity. EXTREMITIES: No pedal edema. SKIN: No rashes, no jaundice. NEUROLOGIC: Alert and oriented x3. No focal deficits. Results CBC & Chem 7: 11/19/20 07:33 11/18/20 17:36 Labs: Abnormal Lab Results - Last 24 Hours (Table) 11/18/20 11/18/20 11/18/20 Range/Units 17:30 17:36 17:36 WBC 15.9 H (3.8-10.6) k/uL RBC 2.47 L (4.30-5.90) m/uL Hgb 6.5 L* D (13.0-17.5) gm/dL Hct 20.7 L (39.0-53.0) % RDW 19.9 H (11.5-15.5) % Lymphocytes # (Manual) 13.52 H (1.0-4.8) k/uL Metamyelocytes # (Man) 0.16 H (0) k/uL Nucleated RBCs 1 H (0-0) /100 WBC PT 18.8 H (9.0-12.0) sec INR 1.9 H (<1.2) APTT 48.7 H (22.0-30.0) sec Sodium (137-145) mmol/L Glucose (74-99) mg/dL Total Protein (6.3-8.2) g/dL Coronavirus (PCR) (Not Detectd) Crossmatch See Detail 11/18/20 11/18/20 Range/Units 17:36 20:45 WBC (3.8-10.6) k/uL RBC (4.30-5.90) m/uL Hgb (13.0-17.5) gm/dL Hct (39.0-53.0) % RDW (11.5-15.5) % Lymphocytes # (Manual) (1.0-4.8) k/uL Metamyelocytes # (Man) (0) k/uL Nucleated RBCs (0-0) /100 WBC PT (9.0-12.0) sec INR (<1.2) APTT (22.0-30.0) sec Sodium 134 L (137-145) mmol/L Glucose 148 H (74-99) mg/dL Total Protein 5.7 L (6.3-8.2) g/dL Coronavirus (PCR) Detected A (Not Detectd) Crossmatch Chest x-ray: report reviewed (Chest x-ray negative for any acute process.) Assessment and Plan (1) Symptomatic anemia Narrative/Plan: 60-year-old male with multiple medical comorbidities presenting for shortness of breath and found to be anemic with hemoglobin of 6.5 down from his baseline of 9-10. Patient had normocytic normochromic indices on presentation. Stool testing was positive for blood and he does report dark colored stool. Unclear if anemia is hematologic in nature, with concern for possible GI bleed and plan for endoscopic evaluation to rule out a source of bleeding such as gastritis, peptic ulcer disease, AVM, malignancy or other etiology. Current Visit: Yes Status: Acute Code(s): D64.9 - ANEMIA, UNSPECIFIED SNOMED Code(s): 053827056 (2) Melena Current Visit: Yes Status: Acute Code(s): K92.1 - MELENA SNOMED Code(s): 6749447 (3) Occult blood positive stool Current Visit: Yes Status: Acute Code(s): R19.5 - OTHER FECAL ABNORMALITIES SNOMED Code(s): 91358957 Plan: Supportive care Okay for diet today and clear liquid diet tomorrow Continue to monitor hemoglobin and hematocrit and transfuse as needed Hematology/oncology consulted to see the patient Plan is for EGD and colonoscopy on 11/21/2020 with all of the risks, benefits and possible complications explained to the patient length with all of his questions answered to his satisfaction Thank you for allowing us to participate in the care of the patient we will continue to follow
[2020-11-20 11:49] LABS: Reticulocyte % 4.38 % (0.10-1.80)
[2020-11-20 12:36] LABS: Basophils # (M) 0 X 10*3/uL (0.00-0.10); Eosinophils # (M) 0.64 X 10*3/uL (0.04-0.35); HCT 23.4 % (39.6-50.0); MCHC 29.5 g/dL (32.0-37.0); MCV 88.3 fL (80.0-97.0); Mean Platelet Volume 8.6 fL (9.5-12.2); Monocytes # (M) 0.32 X 10*3/uL (0.20-1.00); Neutrophils # (M) 1.17 X 10*3/uL (2.00-8.90); Neutrophils % (M) 11 %; Platelet Count 241 X 10*3/uL (140-440); RBC 2.65 X 10*6/uL (4.40-5.60); RDW 18.3 % (11.5-14.5); WBC 10.63 X 10*3/uL (4.50-10.00)
[2020-11-20 12:40] LABS: % Iron Saturation 5.34 (15.00-50.00)
--- NOTE | 2020-11-20 12:46 | P.PN ---
Subjective Progress Note Date: 11/20/20 the patient is medically stable. He denies any new symptoms other than persistent fatigue and some weakness. He has not had any obvious bleeding but has not had another bowel movement since our visit yesterday. Objective - Vital Signs Vital signs: Vital Signs Temp 97.7 F 11/20/20 09:20 Pulse 70 11/20/20 09:20 Resp 17 11/20/20 09:20 BP 119/79 11/20/20 08:20 Pulse Ox 96 11/20/20 09:20 Intake & Output 11/19/20 11/20/20 11/20/20 18:59 06:59 18:59 Intake Total 900 284 Balance 900 284 Intake: Intake, IV Titration 900 Amount Sodium Chloride 0.9% 1, 900 000 ml @ 75 mls/hr IV . [id number] [facility] Rx#:[id number] Blood Product 284 Rc Pheresis As-3 Unit 284 [id number] Other: Voiding Method Toilet # Voids 3 1 - Constitutional General appearance: Present: no acute distress - EENT Eyes: Present: EOMI ENT: Present: hearing grossly normal, normal oropharynx - Respiratory Respiratory: bilateral: CTA - Cardiovascular Rhythm: regular Heart sounds: normal: S1, S2 - Gastrointestinal General gastrointestinal: Present: normal bowel sounds, soft - Integumentary Integumentary: Present: normal - Neurologic Neurologic: Present: CNII-XII intact - Musculoskeletal Musculoskeletal: Present: generalized weakness, strength equal bilaterally - Psychiatric Psychiatric: Present: A&O x's 3, appropriate affect - Labs CBC & Chem 7: 11/20/20 06:41 11/18/20 17:36 Labs: Abnormal Lab Results - Last 24 Hours (Table) 11/18/20 11/19/20 11/20/20 Range/Units 17:30 07:33 06:41 WBC 13.75 H 10.63 H (4.50-10.00) X 10*3/uL RBC 2.47 L 2.65 L (4.40-5.60) X 10*6/uL Hgb 6.4 L* 6.9 L* (13.0-17.0) g/dL Hct 22.4 L 23.4 L (39.6-50.0) % MCH 25.9 L 26.0 L (27.0-32.0) pg MCHC 28.6 L 29.5 L (32.0-37.0) g/dL RDW 19.9 H 18.3 H (11.5-14.5) % MPV 8.8 L 8.6 L (9.5-12.2) fL Absolute Nucleated RBC 0.06 H 0.05 H (0.00-0.00) X 10*3/uL Immature Gran # 0.09 H (0.00-0.04) X 10*3/uL Neutrophils # (Manual) 1.17 L (2.00-8.90) X 10*3/uL Lymphocytes # 10.81 H (0.90-5.00) X 10*3/uL Lymphocytes # (Manual) 8.50 H (0.90-5.00) X 10*3/uL Eosinophils # (Manual) 0.64 H (0.04-0.35) X 10*3/uL NRBC/100 WBC Diff 0.4 H 0.5 H (0.0-0.0) /100 WBCS Retic Count (0.10-1.80) % Iron (65-175) ug/dL % Saturation (15.00-50.00) Ferritin (22.0-322.0) ng/mL Crossmatch See Detail 11/20/20 11/20/20 Range/Units 06:41 06:41 WBC (4.50-10.00) X 10*3/uL RBC (4.40-5.60) X 10*6/uL Hgb (13.0-17.0) g/dL Hct (39.6-50.0) % MCH (27.0-32.0) pg MCHC (32.0-37.0) g/dL RDW (11.5-14.5) % MPV (9.5-12.2) fL Absolute Nucleated RBC (0.00-0.00) X 10*3/uL Immature Gran # (0.00-0.04) X 10*3/uL Neutrophils # (Manual) (2.00-8.90) X 10*3/uL Lymphocytes # (0.90-5.00) X 10*3/uL Lymphocytes # (Manual) (0.90-5.00) X 10*3/uL Eosinophils # (Manual) (0.04-0.35) X 10*3/uL NRBC/100 WBC Diff (0.0-0.0) /100 WBCS Retic Count 4.38 H (0.10-1.80) % Iron 14 L (65-175) ug/dL % Saturation 5.34 L (15.00-50.00) Ferritin 18.0 L (22.0-322.0) ng/mL Crossmatch Assessment and Plan (1) Symptomatic anemia Narrative/Plan: this was clinically felt to be due to acute GI blood loss. Patient's and studies confirm the same with markedly low iron stores. Patient has been seen by gastroenterology, and GI workup is planned for 11/21/20. The patient has never had a colonoscopy before. Await results of the same. - The patient received an additional unit of PRBC yesterday for hemoglobin persistently in the 6 range. Await CBC from the same. Repeat transfusion if needed to keep hemoglobin greater than 7 - Hemolysis workup is still pending, but is not felt to be of significant concern at this time, as iron studies are confirming blood loss. Current Visit: Yes Status: Acute Code(s): D64.9 - ANEMIA, UNSPECIFIED SNOMED Code(s): 775148968 (2) Leukemia Narrative/Plan: no evidence of progression as noted. Continue to monitor Current Visit: No Status: Acute Code(s): C95.90 - LEUKEMIA, UNSPECIFIED NOT HAVING ACHIEVED REMISSION SNOMED Code(s): 59435556 (3) Lupus anticoagulant positive Narrative/Plan: anticoagulation is appropriately on hold, given new onset GI bleed. Once GI workup is completed, depending on the patient's status, we will need to make a decision about placing him on aspirin, as soon as this is felt to be appropriate Current Visit: No Status: Acute Priority: High Code(s): R76.0 - RAISED AN TIBODY TITER SNOMED Code(s): 08531051
--- NOTE | 2020-11-20 14:01 | P.PN ---
Subjective Progress Note Date: 11/20/20 Principal diagnosis: Symptomatic anemia, melena Patient seen lying in bed denying any abdominal pain. No further melena since presentation. No nausea vomiting reported. He is on a clear liquid diet. Objective - Vital Signs Vital signs: Vital Signs Temp 97.7 F 11/20/20 09:20 Pulse 70 11/20/20 09:20 Resp 17 11/20/20 09:20 BP 119/79 11/20/20 08:20 Pulse Ox 96 11/20/20 09:20 Intake & Output 11/19/20 11/20/20 11/20/20 18:59 06:59 18:59 Intake Total 900 284 Balance 900 284 Intake: Intake, IV Titration 900 Amount Sodium Chloride 0.9% 1, 900 000 ml @ 75 mls/hr IV . [id number] [facility] Rx#:[id number] Blood Product 284 Rc Pheresis As-3 Unit 284 [id number] Other: Voiding Method Toilet # Voids 3 1 - Exam On physical examination, patient appears comfortable in no apparent distress. HEAD: Normocephalic, atraumatic. EYES: No scleral icterus. No conjunctival injection. MOUTH: No lesions, tongue midline. NECK: Trachea midline, no gross abnormalities. . ABDOMEN: Soft, thin and nontender. Bowel sounds are positive. No organomegaly. No guarding or rigidity. EXTREMITIES: No pedal edema. SKIN: No rashes, no jaundice. NEUROLOGIC: Alert and oriented x3. No focal deficits. - Labs CBC & Chem 7: 11/20/20 06:41 11/18/20 17:36 Labs: Abnormal Lab Results - Last 24 Hours (Table) 11/18/20 11/19/20 Range/Units 17:30 07:33 WBC 13.75 H (4.50-10.00) X 10*3/uL RBC 2.47 L (4.40-5.60) X 10*6/uL Hgb 6.4 L* (13.0-17.0) g/dL Hct 22.4 L (39.6-50.0) % MCH 25.9 L (27.0-32.0) pg MCHC 28.6 L (32.0-37.0) g/dL RDW 19.9 H (11.5-14.5) % MPV 8.8 L (9.5-12.2) fL Absolute Nucleated RBC 0.06 H (0.00-0.00) X 10*3/uL Immature Gran # 0.09 H (0.00-0.04) X 10*3/uL Lymphocytes # 10.81 H (0.90-5.00) X 10*3/uL NRBC/100 WBC Diff 0.4 H (0.0-0.0) /100 WBCS Crossmatch See Detail Assessment and Plan (1) Symptomatic anemia Narrative/Plan: 60-year-old male with multiple medical comorbidities presenting for shortness of breath and found to be anemic with hemoglobin of 6.5 down from his baseline of 9-10. Patient had normocytic normochromic indices on presentation. Stool te sting was positive for blood and he does report dark colored stool. Unclear if anemia is hematologic in nature, with concern for possible GI bleed and plan for endoscopic evaluation to rule out a source of bleeding such as gastritis, peptic ulcer disease, AVM, malignancy or other etiology. Current Visit: Yes Status: Acute Code(s): D64.9 - ANEMIA, UNSPECIFIED SNOMED Code(s): 709557398 (2) Melena Current Visit: Yes Status: Acute Code(s): K92.1 - MELENA SNOMED Code(s): 1034546 (3) Occult blood positive stool Current Visit: Yes Status: Acute Code(s): R19.5 - OTHER FECAL ABNORMALITIES SNOMED Code(s): 46935120 Plan: Supportive care Clear liquid diet, nothing by mouth after midnight Continue to monitor hemoglobin and hematocrit and transfuse as needed Hematology/oncology consulted to see the patient Plan is for EGD and colonoscopy on 11/21/2020 with all of the risks, benefits and possible complications explained to the patient length with all of his questions answered to his satisfaction Bowel prep ordered Thank you for allowing us to participate in the care of the patient we will continue to follow
[2020-11-20] MEDS ORDERED: PEG 3350-NA SULF,BICARB,CL/KCL 4,000 ML BOTTLE PO ONE (16:00)
[2020-11-20] MEDS ORDERED: bisacodyL 5 MG TABLET.DR PO ONE (17:00)
[2020-11-20] MEDS: CYCLOBENZAPRINE 10 MG TAB PO SCH (21:12)
[2020-11-20] MEDS: MELATONIN 5 MG TABLET PO SCH (21:12)
--- NOTE | 2020-11-20 22:04 | P.PN ---
Progress Note - Text Progress Note Date: 11/20/20 Chief Complaint: Dark stools History of presenting complaint: This is a pleasant 60-year-old patient of Dr. Renny Masters. Chronic stable medical conditions include anxiety depression, GERD, COPD, known CLL with a baseline count running around 50. [address] Faulkner. Positive lupus anticoagulant Admitted to the hospital in October 22 with COVID 19 pneumonia. Because of high risk of clotting was discharged home on Lovenox. Patient now presents with dark stools for about 2 weeks. Some nausea. Tired rundown dizzy lightheaded. No fever no chills. Found to have a hemoglobin of 6.5. 1 unit of blood was ordered in the ER. Patient's Lovenox has been now h eld Today-patient received a second unit of blood last night. No further bowel movement. Tired. Hemoglobin is still running low. Below 7. Review of systems: Was done for constitutional, cardiovascular, GI, pulmonary. relevant finding as above Active Medications Albuterol Sulfate (Albuterol Hfa Inhaler) 2 puff INHALATION RT-QID PRN PRN Reason: Shortness Of Breath Last Admin: 11/20/20 19:28 Dose: 2 puff Documented by: Ascorbic Acid (Ascorbic Acid 500 Mg Tab) 1,000 mg PO DAILY [facility] Last Admin: 11/20/20 08:25 Dose: 1,000 mg Documented by: Budesonide/Formoterol Fumarate (Symbicort 80-4.5 Mcg Inhaler) 2 puff INHALATION RT-BID [facility] Last Admin: 11/20/20 19:28 Dose: 2 puff Documented by: Calcium Carbonate/Glycine (Calcium Carbonate 500 Mg Chewable) 1,000 mg PO TID PRN PRN Reason: Heartburn Cholecalciferol (Cholecalciferol 25 Mcg (1000 Iu) Tablet) 25 mcg PO DAILY [facility] Last Admin: 11/20/20 08:24 Dose: 25 mcg Documented by: Clonazepam (Clonazepam 0.5 Mg Tab) 0.5 mg PO BID PRN PRN Reason: Anxiety Cyclobenzaprine HCl (Cyclobenzaprine 10 Mg Tab) 10 mg PO HS [facility] Last Admin: 11/20/20 21:12 Dose: 10 mg Documented by: Ferrous Sulfate (Ferrous Sulfate 325 Mg Tab) 325 mg PO DAILY [facility] Last Admin: 03/07/21 08:25 Dose: 325 mg Documented by: Sodium Chloride (Saline 0.9%) 1,000 mls @ 75 mls/hr IV .[id number] [facility] Last Admin: 11/20/20 11:36 Dose: Not Given Documented by: Melatonin (Melatonin 5 Mg Tablet) 5 mg PO HS [facility] Last Admin: 11/20/20 21:12 Dose: 5 mg Documented by: Naloxone HCl (Naloxone 0.4 Mg/Ml 1 Ml Vial) 0.2 mg IV Q2M PRN PRN Reason: Opioid Reversal Ondansetron HCl (Ondansetron 4 Mg/2 Ml Vial) 4 mg IVP Q6HR PRN PRN Reason: Nausea And Vomiting Pantoprazole Sodium (Pantoprazole 40 Mg/10 Ml Vial) 40 mg IV DAILY [facility] Last Admin: 11/20/20 08:25 Dose: 40 mg Documented by: Paroxetine HCl (Paroxetine 20 Mg Tab) 20 mg PO DAILY [facility] Last Admin: 11/20/20 08:24 Dose: 20 mg Documented by: Tiotropium [place] (Tiotropium 2.5 Mcg Inhaler) 2 puff INHALATION RT-DAILY@1200 [facility] Last Admin: 11/20/20 07:18 Dose: 2 puff Documented by: Zinc Sulfate (Zinc Sulfate 220 Mg Cap) 220 mg PO DAILY [facility] Last Admin: 11/20/20 08:25 Dose: 220 mg Documented by: Past medical history to include: Chronic lymphoid leukemia, COPD, anxiety, GERD, lupus anticoagulant positive. COVID 19 pneumonia Social history: Patient smoked about a pack and half a day for close to 42 years stopped recently. Lives alone. Employed for [employer] Family history: Reviewed, noncontributory to presentation Physical examination: VITAL SIGNS: 97.6, 76, 16, 111/68, 100% room air GENERAL: BMI 22.6, laying in bed, tired EYES: Pupils equal. Conjunctiva pale. HEENT: External appearance of nose and ears normal, oral cavity grossly normal. NECK: JVD not raised; masses not palpable. HEART: First and second heart sounds are normal; no edema. LUNGS: Respiratory rate increased, decreased breath sounds. ABDOMEN: Soft, nontender, liver spleen not palpable, no masses palpable. PSYCH: Alert and oriented x3; mood and affect anxious INVESTIGATIONS, reviewed in the clinical context: November 20: Hemoglobin 6.9 white count 10.6 platelets 241 IM 14 TIBC 262% saturation 5.34 ferritin 18 WBC 15.9 hemoglobin 6.5 platelets 400 pro time 18.8 PTT 48.7 potassium 3.9 creatinine 1.10 CRP less than 5 stool occult blood positive Coronavirus [PCR]-detected Chest x-ray film personally reviewed by me-no obvious infiltrate Previous testing: Lupus anticoagulant APTT increased at 104 2% anticoagulant PTT mix increased at 71 Diluted Eric viper venom increased at 58 Lupus Hexagonal phase positive LA DRVVT confirm-negative DRVVT 50:50-increased at 58 Rheumatoid factor XII Cyclical Citra Obrien peptide IgG 7.6 Cyclic central peptide positive ANAs screen [place]NAs [place]ón[place] [id number] In a pattern that if oral Double-stranded DNA antibody negative Assessment and plan: -Acute GI bleed, on a patient who has been on Lovenox following COVID 19 pneumonia and being a high risk of clotting. Lovenox -discontinued. Pending endoscopy -Acute severe blood loss anemia hemoglobin 6.4. Symptomatic. Receive 2 units of blood. 13 of blood being ordered today.-Slow to respond -Iron deficiency anemia from acute GI bleed. Patient getting third unit of blood today. -Chronic lymphocytic leukemia. Hematology consulted. Not for any further intervention at present time. -GERD -Anxiety depression not otherwise specified -Positive lupus anticoagulant. High risk of coagulation. -Patient was diagnosed with COVID 19 pneumonia on August 21. Was treated. Still positive. Asymptomatic. No respiratory symptoms. Pulse ox 100% on room air. Precautions Care was discussed with the patient. And Dr. Azar from oncology. Out of the unit of blood ordered.
[2020-11-21] MEDS: SODIUM CHLORIDE 0.9% 1,000 ML IV SCH ×2 (02:35→14:32)
[2020-11-21] MEDS: ALBUTEROL HFA INHALER INHALATION PRN ×2 (07:21→19:31)
[2020-11-21] MEDS: TIOTROPIUM 2.5 MCG INHALER INHALATION SCH (07:21)
[2020-11-21] MEDS: SYMBICORT 80-4.5 MCG INHALER INHALATION SCH ×2 (07:22→19:31)
[2020-11-21 08:54] LABS: African American GFR (CKD) 79 (>60 ml/min/1.73 sqM); Anion Gap 8 mmol/L; Blood Urea Nitrogen 7 mg/dL (9-20); Calcium 8.3 mg/dL (8.4-10.2); Carbon Dioxide 24 mmol/L (22-30); Chloride 106 mmol/L (98-107); Glucose 73 mg/dL (74-99); Non-African American GFR(CKD) 68 (>60 ml/min/1.73 sqM); Potassium 3.7 mmol/L (3.5-5.1); Sodium 138 mmol/L (137-145)
[2020-11-21 08:58] LABS: Anisocytosis Slight; HCT 26.2 % (39.0-53.0); Hypochromasia Marked; MCH 27.5 pg (25.0-35.0); MCHC 32.6 g/dL (31.0-37.0); MCV 84.5 fL (80.0-100.0); Mean Platelet Volume 6.7; Platelet Count 246 k/uL (150-450); Poikilocytosis Marked; RDW 17.4 % (11.5-15.5); WBC 8.3 k/uL (3.8-10.6)
[2020-11-21 09:10] LABS: HGB 8.5 gm/dL (13.0-17.5)
[2020-11-21 09:20] LABS: HGB 6.9 g/dL (13.0-17.0)
[2020-11-21] MEDS: PANTOPRAZOLE 40 MG/10 ML VIAL IV SCH (09:57)
[2020-11-21] MEDS ORDERED: LIDOCAINE 1% INJ 10MG/ML (20 ML MDV) ONE (13:23)
[2020-11-21] MEDS ORDERED: PROPOFOL 10 MG/ML 20 ML VIAL IV ONE (13:23)
[2020-11-21] MEDS ORDERED: IV FLUID CONTINUATION 1,000 ML IV ONE ×3 (13:27)
[2020-11-21] MEDS ORDERED: LACTATED RINGERS 1,000 ML IV ONE ×2 (13:59)
--- NOTE | 2020-11-21 14:13 | P.PCN ---
Date of Procedure: 11/21/20 Description of Procedure: Brief history: 60-year-old male with multiple medical comorbidities including anxiety, depression, GERD, COPD and CLL who presented to the hospital due to complaints of shortness of breath and difficulty breathing. Patient currently follows up in the outpatient setting with hematology/oncology. He does report increasing shortness of breath. The patient states that he has been seen dark-colored stool for approximately 2 weeks. He denies any gross GI bleeding but notes that the bowel movements have been black in color. He denies any abdominal pain, nausea, vomiting, hematemesis or coffee-ground emesis. The patient has not had any prior endoscopy with either EGD or colonoscopy in the past. He denies any history of peptic ulcer disease. He does take omeprazole for GI upset and reports that symptoms of been controlled on this medication. He had a chest x- ray on presentation which was essentially negative for any acute intra-abdominal pathology. Hemoglobin 6.5 on presentation down from his baseline of approximately 9-10. Procedure performed: Esophagogastroduodenoscopy with biopsy Colonoscopy Estimated blood loss: Minimal. Preoperative diagnosis: Melena, anemia Anesthesia: MAC Procedure: After informed consent was obtained from the patient was brought into the endoscopy unit and IV sedation was administered by anesthesia under continuous monitoring. Initially upper endoscopy was done. The Olympus GF 190 video endoscope was inserted into the mouth and esophagus intubated without any difficulty and was gradually advanced into the stomach and duodenum and carefully examined. The bulb and second part of the duodenum appeared normal, with biopsies taken. The scope was then withdrawn into the stomach adequately insufflated with air and upon careful examination the antrum and body, cardia and fundus appeared normal, except for some mild scattered erythema in antrum suggestive of mild gastritis with biopsies taken of the antrum body. The scope was then withdrawn into the esophagus. The GE junction was located at 39 cm to the incisors. It appeared regular with no erythema erosions or ulcerations. Rest of the esophagus appeared normal. Patient tolerated the procedure well. At this time the patient continued to remain sedation. Initial digital rectal examination was normal. Olympus CF 190 video colonoscope was then inserted into the rectum and gradually advanced to the cecum without any difficulty. Careful examination was performed as the scope was gradually being withdrawn. The prep was fair with liquid stool throughout the entire colon. The cecum, ascending colon, transverse colon, descending colon, sigmoid colon and rectum appeared normal, with complete visualization prohibited by fair prep. A few scattered diverticula in the sigmoid colon. Retroflexion was performed in the rectum and no lesions were noted, low-grade internal hemorrhoids. Patient tolerated the procedure well. Impression: 1. No active bleeding, or blood or pathology to explain anemia. 2. Mild gastritis. Biopsies of the antrum and body and duodenum. 3. Mild sigmoid diverticulosis. Fair prep. Internal hemorrhoids. Recommendations: Findings of this examination were discussed with the patient. Okay to resume diet. Okay to resume medications. Continue iron supplementation. Continue other medical management per primary team. Continue evaluation by hematology service. If patient continues to have persistent anemia can consider video capsule endoscopy in the outpatient setting for further evaluation and to rule out small bowel pathology.
[2020-11-21] MEDS: PARoxetine 20 MG TAB PO SCH (14:31)
[2020-11-21] MEDS: CHOLECALCIFEROL 25 MCG (1000 IU) TABLET PO SCH (14:31)
[2020-11-21] MEDS: FERROUS SULFATE 325 MG TAB PO SCH (14:31)
[2020-11-21] MEDS: ZINC SULFATE 220 MG CAP PO SCH (14:31)
[2020-11-21] MEDS: ASCORBIC ACID 500 MG TAB PO SCH (14:32)
[2020-11-21] MEDS: MELATONIN 5 MG TABLET PO SCH (20:19)
[2020-11-21] MEDS: CYCLOBENZAPRINE 10 MG TAB PO SCH (20:19)
--- NOTE | 2020-11-21 20:47 | P.PN ---
Progress Note - Text Progress Note Date: 11/21/20 Chief Complaint: Dark stools History of presenting complaint: This is a pleasant 60-year-old patient of Dr. Renny Masters. Chronic stable medical conditions include anxiety depression, GERD, COPD, known CLL with a baseline count running around 50. Follow[address] Faulkner. Positive lupus anticoagulant Admitted to the hospital in October 22 with COVID 19 pneumonia. Because of high risk of clotting was discharged home on Lovenox. Patient now presents with dark stools for about 2 weeks. Some nausea. Tired rundown dizzy lightheaded. No fever no chills. Found to have a hemoglobin of 6.5. Patient's Lovenox discontinued. Patient has received total of 3 units of blood.. Slow the patient this morning. Feeling better. No further dock stools. Pending endoscopy. Review of systems: Was done for constitutional, cardiovascular, GI, pulmonary. relevant finding as above Active Medications Albuterol Sulfate (Albuterol Hfa Inhaler) 2 puff INHALATION RT-QID PRN PRN Reason: Shortness Of Breath Last Admin: 11/21/20 19:31 Dose: 2 puff Documented by: Ascorbic Acid (Ascorbic Acid 500 Mg Tab) 1,000 mg PO DAILY [facility] Last Admin: 11/21/20 14:32 Dose: 1,000 mg Documented by: Budesonide/Formoterol Fumarate (Symbicort 80-4.5 Mcg Inhaler) 2 puff INHALATION RT-BID [facility] Last Admin: 11/21/20 19:31 Dose: 2 puff Documented by: Calcium Carbonate/Glycine (Calcium Carbonate 500 Mg Chewable) 1,000 mg PO TID PRN PRN Reason: Heartburn Cholecalciferol (Cholecalciferol 25 Mcg (1000 Iu) Tablet) 25 mcg PO DAILY [facility] Last Admin: 11/21/20 14:31 Dose: 25 mcg Documented by: Clonazepam (Clonazepam 0.5 Mg Tab) 0.5 mg PO BID PRN PRN Reason: Anxiety Last Admin: 11/21/20 20:19 Dose: 0.5 mg Documented by: Cyclobenzaprine HCl (Cyclobenzaprine 10 Mg Tab) 10 mg PO HS [facility] Last Admin: 11/21/20 20:19 Dose: 10 mg Documented by: Ferrous Sulfate (Ferrous Sulfate 325 Mg Tab) 325 mg PO DAILY [facility] Last Admin: 11/21/20 14:31 Dose: 325 mg Documented by: Sodium Chloride (Saline 0.9%) 1,000 mls @ 75 mls/hr IV .[id number] [facility] Last Admin: 11/21/20 14:32 Dose: 75 mls/hr Documented by: Melatonin (Melatonin 5 Mg Tablet) 5 mg PO HS [facility] Last Admin: 11/21/20 20:19 Dose: 5 mg Documented by: Naloxone HCl (Naloxone 0.4 Mg/Ml 1 Ml Vial) 0.2 mg IV Q2M PRN PRN Reason: Opioid Reversal Ondansetron HCl (Ondansetron 4 Mg/2 Ml Vial) 4 mg IVP Q6HR PRN PRN Reason: Nausea And Vomiting Pantoprazole Sodium (Pantoprazole 40 Mg/10 Ml Vial) 40 mg IV DAILY [facility] Last Admin: 11/21/20 09:57 Dose: 40 mg Documented by: Paroxetine HCl (Paroxetine 20 Mg Tab) 20 mg PO DAILY [facility] Last Admin: 11/21/20 14:31 Dose: 20 mg Documented by: Tiotropium [place] (Tiotropium 2.5 Mcg Inhaler) 2 puff INHALATION RT-DAILY@1200 [facility] Last Admin: 11/21/20 07:21 Dose: 2 puff Documented by: Zinc Sulfate (Zinc Sulfate 220 Mg Cap) 220 mg PO DAILY [facility] Last Admin: 11/21/20 14:31 Dose: 220 mg Documented by: Past medical history to include: Chronic lymphoid leukemia, COPD, anxiety, GERD, lupus anticoagulant positive. COVID 19 pneumonia Social history: Patient smoked about a pack and half a day for close to 42 years stopped recently. Lives alone. Employed for [employer] Family history: Reviewed, noncontributory to presentation Physical examination: VITAL SIGNS: 97.5, 62, 18, 1 22 x 74, 97% room air GENERAL: BMI 22.6, sitting up, awake EYES: Pupils equal. Conjunctiva pale. HEENT: External appearance of nose and ears normal, oral cavity grossly normal. NECK: JVD not raised; masses not palpable. HEART: First and second heart sounds are normal; no edema. LUNGS: Respiratory rate increased, decreased breath sounds. ABDOMEN: Soft, nontender, liver spleen not palpable, no masses palpable. PSYCH: Alert and oriented x3; mood and affect anxious INVESTIGATIONS, reviewed in the clinical context: November 21: Hemoglobin 8.5 platelets 246 November 20: Hemoglobin 6.9 white count 10.6 platelets 241 IM 14 TIBC 262% saturation 5.34 ferritin 18 WBC 15.9 hemoglobin 6.5 platelets 400 pro time 18.8 PTT 48.7 potassium 3.9 creatinine 1.10 CRP less than 5 stool occult blood positive Coronavirus [PCR]-detected Chest x-ray film personally reviewed by me-no obvious infiltrate Previous testing: Lupus anticoagulant APTT increased at 104 2% anticoagulant PTT mix increased at 71 Diluted Eric viper venom increased at 58 Lupus Hexagonal phase positive LA DRVVT confirm-negative DRVVT 50:50-increased at 58 Rheumatoid factor XII Cyclical Citra Obrien peptide IgG 7.6 Cyclic central peptide positive ANAs screen [place]NAs [place]ón[place] is [id number] In a pattern that if oral Double-stranded DNA antibody negative Assessment and plan: -Acute GI bleed, on a patient who has been on Lovenox following COVID 19 pneumonia and being a high risk of clotting. Lovenox -discontinued. Today underwent EGD and colonoscopy. Mild gastritis. Mild sigmoid diverticulosis. Internal hemorrhoids. For the out patient workup. -Acute severe blood loss anemia hemoglobin 6.4. Symptomatic. Received 3 units of blood. -Iron deficiency anemia from acute GI bleed. Patient getting third unit of blood today. -Chronic lymphocytic leukemia. Hematology consulted. Not for any further intervention at present time. -Chronic diverticulosis -Internal hemorrhoids -GERD -Anxiety depression not otherwise specified -Positive lupus anticoagulant. High risk of coagulation. -Patient was diagnosed with COVID 19 pneumonia on August 21. Was treated. Still positive. Asymptomatic. No respiratory symptoms. Pulse ox 100% on room air. Precautions Continue current medication treatment plan. Repeat CBC in the morning. Hopefully home tomorrow.
[2020-11-22] MEDS: SODIUM CHLORIDE 0.9% 1,000 ML IV SCH (05:45)
[2020-11-22 06:41] LABS: Anisocytosis Slight; HCT 26.8 % (39.0-53.0); HGB 8.7 gm/dL (13.0-17.5); Hypochromasia Moderate; MCH 27.7 pg (25.0-35.0); MCHC 32.5 g/dL (31.0-37.0); MCV 85.1 fL (80.0-100.0); Mean Platelet Volume 6.8; Platelet Count 250 k/uL (150-450); Poikilocytosis Moderate; RBC 3.15 m/uL (4.30-5.90); RDW 17.4 % (11.5-15.5); WBC 9.3 k/uL (3.8-10.6)
[2020-11-22 07:26] VITALS: RESP 16
[2020-11-22] MEDS: FERROUS SULFATE 325 MG TAB PO SCH (07:27)
[2020-11-22] MEDS: ZINC SULFATE 220 MG CAP PO SCH (07:27)
[2020-11-22] MEDS: PARoxetine 20 MG TAB PO SCH (07:27)
[2020-11-22] MEDS: CHOLECALCIFEROL 25 MCG (1000 IU) TABLET PO SCH (07:27)
[2020-11-22] MEDS: PANTOPRAZOLE 40 MG/10 ML VIAL IV SCH (07:27)
[2020-11-22] MEDS: ASCORBIC ACID 500 MG TAB PO SCH (07:27)
[2020-11-22] MEDS: ALBUTEROL HFA INHALER INHALATION PRN ×2 (07:55→11:30)
[2020-11-22] MEDS: SYMBICORT 80-4.5 MCG INHALER INHALATION SCH (07:55)
[2020-11-22] MEDS: TIOTROPIUM 2.5 MCG INHALER INHALATION SCH (07:56)
[2020-11-22 10:17] LABS: Eosinophils # (M) 0.19 k/uL (0-0.7); Lymphocytes # (M) 6.88 k/uL (1.0-4.8); Monocytes # (M) 0.19 k/uL (0-1.0); Neutrophils # (M) 2.05 k/uL (1.3-7.7); Neutrophils % (M) 22 %; Nucleated Red Blood Cells 0 /100 WBC (0-0); Total Cells Counted 100
--- NOTE | 2020-11-22 11:15 | P.PN ---
Subjective Progress Note Date: 11/22/20 Principal diagnosis: Anemia Patient is seen and examined sitting up in bed. He is status post upper and lower endoscopy yesterday with no signs of any active bleeding or old blood noted. He denies any abdominal pain, nausea, or vomiting. He denies any symptoms of GI bleed. His hemoglobin is stable at 8.7. Objective - Vital Signs Vital signs: Vital Signs Temp 98.0 F 11/22/20 07:25 Pulse 74 11/22/20 07:25 Resp 16 11/22/20 07:25 BP 118/71 11/22/20 07:25 Pulse Ox 95 11/22/20 07:56 Intake & Output 11/21/20 11/22/20 11/22/20 18:59 06:59 18:59 Intake Total 500 Balance 500 Intake: IV 500 Other: Voiding Method Toilet # Voids 2 3 # Bowel Movements 1 2 - Exam General appearance: The patient is alert, oriented, appears in no acute distress. HET: Head is normocephalic and atraumatic. Conjunctiva pink. Sclera anicteric. Neck: Supple without lymphadenopathy. Abdomen: Soft, nontender, nondistended with bowel sounds. No guarding or rigidity. Extremities: Normal skin color and turgor. No pedal edema Skin: No rashes, no jaundice Neurological: No focal deficits. Alert and oriented 3. - Labs CBC & Chem 7: 11/22/20 05:19 11/21/20 08:16 Labs: Abnormal Lab Results - Last 24 Hours (Table) 11/22/20 Range/Units 05:19 RBC 3.15 L (4.30-5.90) m/uL Hgb 8.7 L (13.0-17.5) gm/dL Hct 26.8 L (39.0-53.0) % RDW 17.4 H (11.5-15.5) % Lymphocytes # (Manual) 6.88 H (1.0-4.8) k/uL Assessment and Plan (1) Symptomatic anemia Narrative/Plan: 60-year-old male with multiple medical comorbidities presenting for shortness of breath and found to be anemic with hemoglobin of 6.5 down from his baseline of 9-10. Patient had normocytic normochromic indices on presentation. Stool testing was positive for blood and he does report dark colored stool. Unclear if anemia is hematologic in nature, with concern for possible GI bleed and plan for endoscopic evaluation to rule out a source of bleeding such as gastritis, peptic ulcer disease, AVM, malignancy or other etiology. Patient is status post EGD and colonoscopy. Upper endoscopy findings included mild gastritis, no evidence of any active bleeding or old blood to explain anemia. Colonoscopy showed mild sigmoid diverticulosis, no active bleeding or old blood noted. Fair prep. Patient had internal hemorrhoids. Current Visit: Yes Status: Acute Priority: High Code(s): D64.9 - ANEMIA, UNSPECIFIED SNOMED Code(s): 716373136 (2) Melena Current Visit: Yes Status: Acute Code(s): K92.1 - MELENA SNOMED Code(s): 6921721 (3) Occult blood positive stool Current Visit: Yes Status: Acute Priority: High Code(s): R19.5 - OTHER FECAL ABNORMALITIES SNOMED Code(s): 88949518 Plan: Supportive care Diet as tolerated Hematology on consult, appreciate recommendations Patient is status post EGD and colonoscopy without any active bleeding or old blood noted Continue Protonix Continue daily CBC, transfuse for hemoglobin less than 7 The patient continues to have severe symptomatic anemia, can consider further investigation with a small bowel video capsule endoscopy as an outpatient The patient may be discharged home from a gastroenterology standpoint once medically stable Thank you for this consult, we sign off at this time I agree with the dictator's note, documented as a scribe by tEta OWENS.
[2020-11-22 11:39] VITALS: BP 121/69; PULSE 84; TEMP 97.5
--- NOTE | 2020-11-22 13:09 | P.PN ---
Subjective Progress Note Date: 11/22/20 Principal diagnosis: Lupus anticoagulant, GI bleeding, anemia In f/u pt denies any bleeding, he feels better then he did on admit, little more energy. His endoscopy did not show any acute pathological findings, biopsies pending Objective - Vital Signs Vital signs: Vital Signs Temp 97.5 F L 11/22/20 11:37 Pulse 84 11/22/20 11:37 Resp 16 11/22/20 11:37 BP 121/69 11/22/20 11:37 Pulse Ox 100 11/22/20 11:37 Intake & Output 11/21/20 11/22/20 11/22/20 18:59 06:59 18:59 Intake Total 500 Balance 500 Intake: IV 500 Other: Voiding Method Toilet # Voids 2 3 # Bowel Movements 1 2 - Constitutional General appearance: Present: cooperative, no acute distress, thin - EENT Eyes: Present: anicteric sclerae, EOMI ENT: Present: hearing grossly normal - Respiratory Details: resp even and unlabored - Cardiovascular Heart sounds: normal: S1, S2 - Peripheral edema leg Peripheral Edema: bilateral: None - Neurologic Neurologic: Present: CNII-XII intact - Musculoskeletal Musculoskeletal: Present: strength equal bilaterally - Psychiatric Psychiatric: Present: A&O x's 3, appropriate affect, intact judgment & insight - Labs CBC & Chem 7: 11/22/20 05:19 11/21/20 08:16 Labs: Abnormal Lab Results - Last 24 Hours (Table) 11/22/20 Range/Units 05:19 RBC 3.15 L (4.30-5.90) m/uL Hgb 8.7 L (13.0-17.5) gm/dL Hct 26.8 L (39.0-53.0) % RDW 17.4 H (11.5-15.5) % Lymphocytes # (Manual) 6.88 H (1.0-4.8) k/uL Assessment and Plan (1) GI hemorrhage Current Visit: Yes Status: Acute Priority: High Code(s): K92.2 - GASTROINTESTINAL HEMORRHAGE, UNSPECIFIED SNOMED Code(s): 40351491 (2) Occult blood positive stool Current Visit: Yes Status: Acute Priority: High Code(s): R19.5 - OTHER FECAL ABNORMALITIES SNOMED Code(s): 51483321 (3) Symptomatic anemia Current Visit: Yes Status: Acute Priority: High Code(s): D64.9 - ANEMIA, UNSPECIFIED SNOMED Code(s): 554374209 (4) Lupus anticoagulant positive Narrative/Plan: Patient is to be on full dose aspirin. Okay to resume the same. Recommend patience se CBC monitoring over the next several weeks Current Visit: No Status: Chronic Priority: Medium Code(s): R76.0 - RAISED ANTIBODY TITER SNOMED Code(s): 35354523 (5) Chronic lymphocytic leukemia not having achieved remission Narrative/Plan: WBC and differential are within normal limits. No treatment needed at this time Current Visit: No Status: Chronic Priority: Medium Code(s): C91.10 - CHRONIC LYMPHOCYTIC LEUK OF B-CELL TYPE NOT ACHIEVE REMIS SNOMED Code(s): 62319496 Plan: Patient was worked up for hemolysis, workup negative. Patient has had upper and lower endoscopy with no acute bleeding, biopsies are pending. Patient was on Lovenox post Covid infection because of lupus anticoagulant positive. Patient had noted black stools since last discharge, reports biting his tongue quite a bit. Patient's significant drop in hemoglobin does appear to be related to acute blood loss. Iron studies show iron deficiency. Parenteral iron ordered. Patient is on oral iron. The Lovenox has been stopped. Patient is okay from a Hematology standpoint to resume his 325 mg aspirin daily once he has been cleared by Gastroenterology, Attending and other Consults.
[2020-11-22] MEDS ORDERED: SODIUM FERRIC GLUCONAT-SUCROSE 125 MG in SODIUM CHLORIDE 0.9% 100 ML IVPB SCH (13:30)
--- NOTE | 2020-11-23 17:41 | P.DS ---
Providers Date of admission: 11/18/20 19:04 Expected date of discharge: 11/22/20 Attending physician: Gregor Singer Consults: 11/18/20 19:05 Consult Physician Urgent Consulting Provider: Teri Chen Consult Reason/Comments: oncological care Do you want consulting provider notified?: Yes Consult Physician Urgent Consulting Provider: Heidi Acuña Consult Reason/Comments: gi hemorrhage Do you want consulting provider notified?: Yes Primary care physician: Mikhail Masters [facility] Course: Chief Complaint: Dark stools History of presenting complaint: This is a pleasant 60-year-old patient of Dr. Renny Masters. Chronic stable medical conditions include anxiety depression, GERD, COPD, known CLL with a baseline count running around 50. Follow[address] Faulkner. Positive lupus anticoagulant Admitted to the hospital in October 22 with COVID 19 pneumonia. Because of high risk of clotting was discharged home on Lovenox. Patient now presents with dark stools for about 2 weeks. Some nausea. Tired rundown dizzy lightheaded. No fever no chills. Found to have a hemoglobin of 6.5. Patient's Lovenox discontinued. Patient has received total of 3 units of blood.. Patient did undergo EGD colonoscopy. Found to have mild gastritis, mild sigmoid diverticulosis, internal hemorrhoids. Today-feels better. Up and about. Hemoglobin 8.7. Patient to remain off Lovenox but to keep an aspirin. Cleared by hematology. Consultation: Dr. Ca from GI Dr. Azar from hematology Past medical history to include: Chronic lymphoid leukemia, COPD, anxiety, GERD, lupus anticoagulant positive. COVID 19 pneumonia Social history: Patient smoked about a pack and half a day for close to 42 years stopped recently. Lives alone. Employed for [employer] Family history: Reviewed, noncontributory to presentation Physical examination: VITAL SIGNS: 97.5, 84, 16, 121/69, 100% on room air GENERAL: BMI 22.6, sitting up, awake EYES: Pupils equal. Conjunctiva pale. HEENT: External appearance of nose and ears normal, oral cavity grossly normal. NECK: JVD not raised; masses not palpable. HEART: First and second heart sounds are normal; no edema. LUNGS: Respiratory rate increased, decreased breath sounds. ABDOMEN: Soft, nontender, liver spleen not palpable, no masses palpable. PSYCH: Alert and oriented x3; mood and affect anxious INVESTIGATIONS, reviewed in the clinical context: November 22: Hemoglobin 8.7 November 21: Hemoglobin 8.5 platelets 246 November 20: Hemoglobin 6.9 white count 10.6 platelets 241 IM 14 TIBC 262% saturation 5.34 ferritin 18 WBC 15.9 hemoglobin 6.5 platelets 400 pro time 18.8 PTT 48.7 potassium 3.9 creatinine 1.10 CRP less than 5 stool occult blood positive Coronavirus [PCR]-detected Chest x-ray film personally reviewed by me-no obvious infiltrate Previous testing: Lupus anticoagulant APTT increased at 104 2% anticoagulant PTT mix increased at 71 Diluted Eric viper venom increased at 58 Lupus Hexagonal phase positive LA DRVVT confirm-negative DRVVT 50:50-increased at 58 Rheumatoid factor XII Cyclical Citra Obrien peptide IgG 7.6 Cyclic central peptide positive ANAs screen [place]NA[place] [id number] In a pattern that if oral Double-stranded DNA antibody negative Assessment and plan: -Acute GI bleed, on a patient who has been on Lovenox following COVID 19 pneumonia and being a high risk of clotting. Lovenox -discontinued. -Mild gastritis, -Mild sigmoid diverticulosis -Internal hemorrhoids -Acute severe blood loss anemia hemoglobin 6.4. Symptomatic. Received 3 units of blood. -Iron deficiency anemia from acute GI bleed. Patient getting third unit of blood today. -Chronic lymphocytic leukemia. Hematology consulted. Not for any further intervention at present time. -Chronic diverticulosis -Internal hemorrhoids -GERD -Anxiety depression not otherwise specified -Positive lupus anticoagulant. High risk of coagulation. -Patient was diagnosed with COVID 19 pneumonia on August 21. Was treated. Still positive. Asymptomatic. No respiratory symptoms. Pulse ox 100% on room air. Precautions Disposition: Home Plan - Discharge Summary Discharge Rx Participant: No New Discharge Prescriptions: Continue Calcium Carbonate [Tums] 1,000 mg PO TID PRN PRN Reason: Heartburn clonazePAM [KlonoPIN] 0.5 mg PO BID PRN PRN Reason: Anxiety Tiotropium Addison [Spiriva] 1 cap INHALATION RT-DAILY@1200 PARoxetine [Paxil] 20 mg PO DAILY Albuterol Sulfate [Proair Hfa] 2 puff INHALATION RT-QID PRN PRN Reason: Shortness Of Breath Omeprazole 20 mg PO DAILY Fluticasone/Salmeterol [Advair 250-50 Diskus] 1 puff INHALATION RT-BID Ferrous Sulfate [Iron (65 MG Elemental)] 325 mg PO DAILY Cyclobenzaprine [Flexeril] 10 mg PO HS Bismuth Subsalicylate [Pepto-Bismol] 262 mg PO Q6H PRN PRN Reason: Gi Upset Aspirin 325 mg PO DAILY #30 tab Melatonin 5 mg PO HS tablet Zinc Sulfate [Orazinc] 220 mg PO DAILY #30 cap Ascorbic Acid [Vitamin C] 1,000 mg PO DAILY #30 tab Cholecalciferol [Vitamin D3 (25 Mcg = 1000 Iu)] 25 mcg PO DAILY #30 tablet Discontinued Enoxaparin [Lovenox] 60 mg SQ Q12H 42 Days #84 syringe Discharge Medication List Albuterol Sulfate [Proair Hfa] 2 puff INHALATION RT-QID PRN 09/23/20 [History] Bismuth Subsalicylate [Pepto-Bismol] 262 mg PO Q6H PRN 09/23/20 [History] Calcium Carbonate [Tums] 1,000 mg PO TID PRN 09/23/20 [History] Cyclobenzaprine [Flexeril] 10 mg PO HS 09/23/20 [History] Ferrous Sulfate [Iron (65 MG Elemental)] 325 mg PO DAILY 09/23/20 [History] Fluticasone/Salmeterol [Advair 250-50 Diskus] 1 puff INHALATION RT-BID 09/23/20 [History] Omeprazole 20 mg PO DAILY 09/23/20 [History] PARoxetine [Paxil] 20 mg PO DAILY 09/23/20 [History] Tiotropium Addison [Spiriva] 1 cap INHALATION RT-DAILY@1200 09/23/20 [History] clonazePAM [KlonoPIN] 0.5 mg PO BID PRN 09/23/20 [History] Aspirin 325 mg PO DAILY #30 tab 09/27/20 [Rx] Ascorbic Acid [Vitamin C] 1,000 mg PO DAILY #30 tab 10/27/20 [Rx] Cholecalciferol [Vitamin D3 (25 Mcg = 1000 Iu)] 25 mcg PO DAILY #30 tablet 10/27/20 [Rx] Melatonin 5 mg PO HS tablet 10/27/20 [Rx] Zinc Sulfate [Orazinc] 220 mg PO DAILY #30 cap 10/27/20 [Rx] Follow up Appointment(s)/Referral(s): Mikhail Masters MD [Primary Care Provider] - 1-2 days Teri Chen MD [STAFF PHYSICIAN] - 12/06/20 11:15 am Activity/Diet/Wound Care/Special Instructions: cbc - 3 days Discharge Disposition: HOME SELF-CARE
== END 2020-11-22 15:40 | disposition home or self-care (01) | DRG 377 ==
LOC: EC 17:04 → 5NMEDONC 19:04 → 4SSUR 11-19 05:48
PROVIDERS: ADMIT Hospitalist; ATTEND Hospitalist
PROC: 0DJD8ZZ Inspection of Lower Intestinal Tract, Via Natural or Artificial Opening Endoscopic (ICD-10-PCS; principal; 2020-11-21 07:30)
PROC: 0DB68ZX Excision of Stomach, Via Natural or Artificial Opening Endoscopic, Diagnostic (ICD-10-PCS; principal; 2020-11-21 07:30)
PROC: 0DB98ZX Excision of Duodenum, Via Natural or Artificial Opening Endoscopic, Diagnostic (ICD-10-PCS; principal; 2020-11-21 07:30)
PROC: 0DB78ZX Excision of Stomach, Pylorus, Via Natural or Artificial Opening Endoscopic, Diagnostic (ICD-10-PCS; principal; 2020-11-21 07:30)
DX: K92.1 Melena (principal); U07.1 COVID-19; C91.10 Chronic lymphocytic leukemia of B-cell type not having achieved remission; D62 Acute posthemorrhagic anemia; D68.62 Lupus anticoagulant syndrome; Q93.9 Deletion from autosomes, unspecified; D50.9 Iron deficiency anemia, unspecified; D47.3 Essential (hemorrhagic) thrombocythemia; F41.8 Other specified anxiety disorders; J43.9 Emphysema, unspecified; K21.9 Gastro-esophageal reflux disease without esophagitis; K29.70 Gastritis, unspecified, without bleeding; K57.30 Diverticulosis of large intestine without perforation or abscess without bleeding; K64.8 Other hemorrhoids; Z79.82 Long term (current) use of aspirin; Z79.899 Other long term (current) drug therapy; Z87.891 Personal history of nicotine dependence; Z88.0 Allergy status to penicillin; Z60.2 Problems related to living alone; Z90.49 Acquired absence of other specified parts of digestive tract
CPT/HCPCS: 36415; 43239; 45378; 71046; 80048; 80053; 82272; 82728; 83010; 83540; 83550; 83605; 83615; 83880; 84484; 85025; 85027; 85045; 85610; 85730; 86140; 86850; 86900; 86901; 86920; 87635; 88305; 93005; 94640; 94760; 96374; 99285

== ENCOUNTER 2021-04-24 17:34 | Observation (INO) | payer BC, OTHER ==
--- NOTE | 2021-04-24 18:14 | ED ---
SOB HPI - General Source: patient Mode of arrival: wheelchair Limitations: no limitations <Rin Cole - Last Filed: 04/24/21 22:18> <Camelia Teran - Last Filed: 05/06/21 19:17> - General Chief Complaint: Shortness of Breath Stated Complaint: SOB Time Seen by Provider: 04/24/21 17:58 - History of Present Illness Initial Comments: 60 year-old male patient with history of chronic lymphocytic leukemia, not c urrently in treatment, presents to the emergency department for evaluation of shortness of breath especially with activity. States symptoms worsening since . Denies any chest pain. Reports productive cough. Denies fever or chills. Denies nausea, vomiting, or abdominal pain. Denies any leg pain or swelling. Denies history of blood clot. Patient denies any recent rash, diarrhea, constipation, back pain, numbness, tingling, dizziness, weakness, hematuria, dysuria, urinary urgency, urinary frequency, headache, visual changes, or any other complaints. (Rin Cole) - Related Data Home Medications Medication Instructions Recorded Confirmed Albuterol Sulfate [Proair Hfa] 2 puff INHALATION RT-QID PRN 09/23/20 05/04/21 Calcium Carbonate [Tums] 1,000 mg PO TID PRN 09/23/20 05/04/21 Cyclobenzaprine [Flexeril] 10 mg PO HS 09/23/20 05/04/21 Ferrous Sulfate [Iron (65 MG 325 mg PO DAILY 09/23/20 05/04/21 Elemental)] Fluticasone/Salmeterol [Advair 1 puff INHALATION RT-BID 09/23/20 05/04/21 250-50 Diskus] Omeprazole 40 mg PO DAILY 09/23/20 05/04/21 PARoxetine [Paxil] 20 mg PO DAILY 09/23/20 05/04/21 Tiotropium North [Spiriva] 1 cap INHALATION RT-DAILY 09/23/20 05/04/21 Ascorbic Acid [Vitamin C] 1,000 mg PO DAILY 04/24/21 05/04/21 Cyanocobalamin (Vitamin B-12) 1,000 mcg PO DAILY 04/24/21 05/04/21 [Vitamin B-12] Diclofenac Sodium Gel [Voltaren 1 applic TOPICAL QID PRN 04/24/21 05/04/21 Gel] Glucosam/Reynold-Msm1/C/Lorenzo/Bosw 2 tab PO DAILY 04/24/21 05/04/21 [Glucosamine-Chondroitin Tablet] Inulin/Chromium Picolinate [Fiber 1 tab PO DAILY 04/24/21 05/04/21 Gummies Chew] Multivitamins, Thera [Multivitamin 1 tab PO DAILY 04/24/21 05/04/21 (formulary)] Previous Rx's Medication Instructions Recorded Aspirin 325 mg PO DAILY #30 tab 09/27/20 Cholecalciferol [Vitamin D3 (25 25 mcg PO DAILY #30 tablet 10/27/20 Mcg = 1000 Iu)] Sulfamethox-Tmp 800-160Mg [Bactrim 1 tab PO Q12HR #6 tab 05/05/21 DS 800-160 mg] Allergies Allergy/AdvReac Type Severity Reaction Status Date / Time Penicillins Allergy Unknown Verified 05/04/21 19:14 Childhood Review of Systems ROS Other: All systems not noted in ROS Statement are negative. <Rin Cole - Last Filed: 04/24/21 22:18> ROS Other: All systems not noted in ROS Statement are negative. <Camelia Teran - Last Filed: 05/06/21 19:17> ROS Statement: Those systems with pertinent positive or pertinent negative responses have been documented in the HPI. Past Medical History Past Medical History: Cancer Additional Past Medical History / Comment(s): Chronic lymphocytic leukemia, emphysema, plueral effusion 09/23/2020, covid 10/2020 History of Any Multi-Drug Resistant Organisms: None Reported Past Surgical History: Appendectomy Past Anesthesia/Blood Transfusion Reactions: No Reported Reaction Past Psychological History: Anxiety, Depression Smoking Status: Former smoker Past Alcohol Use History: None Reported Past Drug Use History: Marijuana <Rin Cole - Last Filed: 04/24/21 22:18> General Exam Limitations: no limitations General appearance: alert, in no apparent distress, other (This is a well- developed, thin appearing adult male patient in no acute distress. Vital signs upon presentation are temperature 97.8F, pulse 92, respirations 22, blood pressure 96/61, pulse ox 97% on room air.) Eye exam: Present: normal appearance, PERRL, EOMI. Absent: scleral icterus, conjunctival injection, periorbital swelling ENT exam: Present: normal exam, normal oropharynx, mucous membranes moist Respiratory exam: Present: normal lung sounds bilaterally. Absent: respiratory distress, wheezes, rales, rhonchi, stridor Cardiovascular Exam: Present: regular rate, normal rhythm, normal heart sounds. Absent: systolic murmur, diastolic murmur, rubs, gallop, clicks GI/Abdominal exam: Present: soft, normal bowel sounds. Absent: distended, tenderness, guarding, rebound, rigid Neurological exam: Present: alert, oriented X3, CN II-XII intact Psychiatric exam: Present: normal affect, normal mood Skin exam: Present: warm, dry, intact, normal color. Absent: rash <CandietleRin M - Last Filed: 04/24/21 22:18> Course Vital Signs 04/24/21 04/24/21 04/24/21 17:52 19:44 21:00 Temperature 97.8 F Pulse Rate 92 84 88 Respiratory 22 20 18 Rate Blood Pressure 96/61 92/60 99/65 O2 Sat by Pulse 97 87 L 93 L Oximetry 04/24/21 04/24/21 04/24/21 22:25 22:35 22:38 Temperature Pulse Rate 81 85 84 Respiratory 18 Rate Blood Pressure 91/64 O2 Sat by Pulse 96 Oximetry 04/25/21 04/25/21 04/25/21 02:29 05:48 06:23 Temperature Pulse Rate 92 93 88 Respiratory 21 22 18 Rate Blood Pressure 99/68 98/65 120/76 O2 Sat by Pulse 96 97 96 Oximetry 04/25/21 04/25/21 04/25/21 07:22 07:36 08:35 Temperature 97.7 F Pulse Rate 87 74 98 Respiratory 16 16 18 Rate Blood Pressure 120/76 O2 Sat by Pulse 94 L 91 L Oximetry 04/25/21 04/25/21 04/25/21 10:37 10:48 11:20 Temperature Pulse Rate 85 88 98 Respiratory 18 18 18 Rate Blood Pressure 120/76 O2 Sat by Pulse 92 L Oximetry 04/25/21 04/25/21 04/25/21 16:00 16:11 16:53 Temperature Pulse Rate 93 84 100 Respiratory 18 18 18 Rate Blood Pressure 120/76 O2 Sat by Pulse 92 L Oximetry Medical Decision Making - Lab Data Result diagrams: 04/24/21 18:34 04/24/21 18:34 - Radiology Data Radiology results: report reviewed, image reviewed <Rin Cole - Last Filed: 04/24/21 22:18> - Lab Data Result diagrams: 04/26/21 07:10 04/26/21 07:10 <Camelia Teran - Last Filed: 05/06/21 19:17> - Medical Decision Making 60-year-old male patient with past medical history significant for leukemia presents for evaluation of increased shortness of breath over the last couple days. Does report productive cough. Lungs did reveal coarse expiratory wheezi ng. Labs reviewed and did reveal white blood cell count is 17.8, hemoglobin 10.6, d-dimer is 24.96, INR 3.1. Carbon dioxide was 21, creatinine 1.44. Troponin negative. EKG unremarkable. CT chest angiography for PE was obtained and showed no evidence for pulmonary embolism. COVID-19 negative. Oxygen saturation did decrease to 87% while here he was placed on oxygen. He'll be admitted to the hospital for COPD exacerbation with IV azithromycin, Solu- Medrol, DuoNeb treatments. We'll consult pulmonology. He is agreeable with this plan. Case discussed with my attending Dr. Teran. (Rin Cole) I was available for consultation in the emergency department. The history and physical exam were done by the midlevel provider. I was consulted for this patients care. I reviewed the case with the midlevel provider and based on their presentation of the patient, I agree with the assessment, medical decision making and plan of care as documented. Chart was dictated using [employer] dictation software. Attempts were made to correct any dictation errors however some typographical errors may persist. Patient was seen during a national state of emergency due to the Covid-19 pandemic. (Camelia Teran) - Lab Data Lab Results 04/24/21 04/24/21 04/24/21 Range/Units 18:34 18:34 18:34 WBC 17.8 H (3.8-10.6) k/uL RBC 4.57 (4.30-5.90) m/uL Hgb 10.6 L (13.0-17.5) gm/dL Hct 33.9 L (39.0-53.0) % MCV 74.2 L (80.0-100.0) fL MCH 23.2 L (25.0-35.0) pg MCHC 31.2 (31.0-37.0) g/dL RDW 18.6 H (11.5-15.5) % Plt Count 387 (150-450) k/uL MPV 6.9 Neutrophils % % Neutrophils % (Manual) 25 % Lymphocytes % % Lymphocytes % (Manual) 74 % Monocytes % % Monocytes % (Manual) 1 % Eosinophils % % Basophils % % Other Cells % % Neutrophils # (1.3-7.7) k/uL Neutrophils # (Manual) 4.45 (1.3-7.7) k/uL Lymphocytes # (1.0-4.8) k/uL Lymphocytes # (Manual) 13.17 H (1.0-4.8) k/uL Monocytes # (0-1.0) k/uL Monocytes # (Manual) 0.18 (0-1.0) k/uL Eosinophils # (0-0.7) k/uL Basophils # (0-0.2) k/uL Nucleated RBCs 0 (0-0) /100 WBC Manual Slide Review Performed Polychromasia Present Hypochromasia Moderate Poikilocytosis Slight Anisocytosis Slight Microcytosis Moderate Tear Drop Cells ESR (0-15) mm/hr Retic Count (0.5-2.0) % Haptoglobin (31.2-198.0) mg/dL PT 29.6 H (9.0-12.0) sec INR 3.1 H (<1.2) APTT Cancelled D-Dimer 24.96 H (<0.60) mg/L FEU Sodium 137 (137-145) mmol/L Potassium 4.3 (3.5-5.1) mmol/L Chloride 106 (98-107) mmol/L Carbon Dioxide 21 L (22-30) mmol/L Anion Gap 10 mmol/L BUN 16 (9-20) mg/dL Creatinine 1.44 H (0.66-1.25) mg/dL Est GFR (CKD-EPI)AfAm 60 (>60 ml/min/1.73 sqM) Est GFR (CKD-EPI)NonAf 52 (>60 ml/min/1.73 sqM) Glucose 111 H (74-99) mg/dL Plasma Lactic Acid Justin (0.7-2.0) mmol/L Uric Acid (3.5-8.5) mg/dL Calcium 10.4 H (8.4-10.2) mg/dL Phosphorus (2.5-4.5) mg/dL Magnesium 2.1 (1.6-2.3) mg/dL Iron (65-175) ug/dL TIBC (228-460) ug/dL % Saturation (15.00-50.00) Ferritin (22.0-322.0) ng/mL Total Bilirubin 1.2 (0.2-1.3) mg/dL AST 25 (17-59) U/L ALT 9 (4-49) U/L Alkaline Phosphatase 121 (38-126) U/L Lactate Dehydrogenase (313-618) U/L Troponin I (0.000-0.034) ng/mL Total Protein 7.0 (6.3-8.2) g/dL Albumin 3.7 (3.5-5.0) g/dL Globulin g/dL Albumin/Globulin Ratio IgG (700.0-1600.0) mg/dL Coronavirus (PCR) (Not Detectd) 04/24/21 04/24/21 04/24/21 Range/Units 18:34 18:34 19:26 WBC (3.8-10.6) k/uL RBC (4.30-5.90) m/uL Hgb (13.0-17.5) gm/dL Hct (39.0-53.0) % MCV (80.0-100.0) fL MCH (25.0-35.0) pg MCHC (31.0-37.0) g/dL RDW (11.5-15.5) % Plt Count (150-450) k/uL MPV Neutrophils % % Neutrophils % (Manual) % Lymphocytes % % Lymphocytes % (Manual) % Monocytes % % Monocytes % (Manual) % Eosinophils % % Basophils % % Other Cells % % Neutrophils # (1.3-7.7) k/uL Neutrophils # (Manual) (1.3-7.7) k/uL Lymphocytes # (1.0-4.8) k/uL Lymphocytes # (Manual) (1.0-4.8) k/uL Monocytes # (0-1.0) k/uL Monocytes # (Manual) (0-1.0) k/uL Eosinophils # (0-0.7) k/uL Basophils # (0-0.2) k/uL Nucleated RBCs (0-0) /100 WBC Manual Slide Review Polychromasia Hypochromasia Poikilocytosis Anisocytosis Microcytosis Tear Drop Cells ESR (0-15) mm/hr Retic Count (0.5-2.0) % Haptoglobin (31.2-198.0) mg/dL PT (9.0-12.0) sec INR (<1.2) APTT D-Dimer (<0.60) mg/L FEU Sodium (137-145) mmol/L Potassium (3.5-5.1) mmol/L Chloride (98-107) mmol/L Carbon Dioxide (22-30) mmol/L Anion Gap mmol/L BUN (9-20) mg/dL Creatinine (0.66-1.25) mg/dL Est GFR (CKD-EPI)AfAm (>60 ml/min/1.73 sqM) Est GFR (CKD-EPI)NonAf (>60 ml/min/1.73 sqM) Glucose (74-99) mg/dL Plasma Lactic Acid Justin 1.1 (0.7-2.0) mmol/L Uric Acid (3.5-8.5) mg/dL Calcium (8.4-10.2) mg/dL Phosphorus (2.5-4.5) mg/dL Magnesium (1.6-2.3) mg/dL Iron (65-175) ug/dL TIBC (228-460) ug/dL % Saturation (15.00-50.00) Ferritin (22.0-322.0) ng/mL Total Bilirubin (0.2-1.3) mg/dL AST (17-59) U/L ALT (4-49) U/L Alkaline Phosphatase (38-126) U/L Lactate Dehydrogenase (313-618) U/L Troponin I <0.012 (0.000-0.034) ng/mL Total Protein (6.3-8.2) g/dL Albumin (3.5-5.0) g/dL Globulin g/dL Albumin/Globulin Ratio IgG (700.0-1600.0) mg/dL Coronavirus (PCR) Not Detected (Not Detectd) 04/24/21 04/25/21 04/25/21 Range/Units 21:20 09:24 09:24 WBC 28.6 H (3.8-10.6) k/uL RBC 4.26 L (4.30-5.90) m/uL Hgb 10.0 L (13.0-17.5) gm/dL Hct 31.9 L (39.0-53.0) % MCV 74.8 L (80.0-100.0) fL MCH 23.4 L (25.0-35.0) pg MCHC 31.3 (31.0-37.0) g/dL RDW 19.0 H (11.5-15.5) % Plt Count 439 (150-450) k/uL MPV 6.4 Neutrophils % 14 % Neutrophils % (Manual) 18 % Lymphocytes % 74 % Lymphocytes % (Manual) 80 % Monocytes % 0 % Monocytes % (Manual) 2 % Eosinophils % 0 % Basophils % 1 % Other Cells % % Neutrophils # 4.1 (1.3-7.7) k/uL Neutrophils # (Manual) 5.15 (1.3-7.7) k/uL Lymphocytes # 21.0 H (1.0-4.8) k/uL Lymphocytes # (Manual) 22.88 H (1.0-4.8) k/uL Monocytes # 0.1 (0-1.0) k/uL Monocytes # (Manual) 0.57 (0-1.0) k/uL Eosinophils # 0.0 (0-0.7) k/uL Basophils # 0.1 (0-0.2) k/uL Nucleated RBCs 0 (0-0) /100 WBC Manual Slide Review Polychromasia Hypochromasia Marked Poikilocytosis Slight Anisocytosis Slight Microcytosis Moderate Tear Drop Cells Present ESR (0-15) mm/hr Retic Count (0.5-2.0) % Haptoglobin (31.2-198.0) mg/dL PT 27.6 H (9.0-12.0) sec INR 2.9 H (<1.2) APTT 40.2 H D-Dimer 16.30 H (<0.60) mg/L FEU Sodium 137 (137-145) mmol/L Potassium 4.3 (3.5-5.1) mmol/L Chloride 108 H (98-107) mmol/L Carbon Dioxide 18 L (22-30) mmol/L Anion Gap 11 mmol/L BUN 17 (9-20) mg/dL Creatinine 1.29 H (0.66-1.25) mg/dL Est GFR (CKD-EPI)AfAm 68 (>60 ml/min/1.73 sqM) Est GFR (CKD-EPI)NonAf 59 (>60 ml/min/1.73 sqM) Glucose 276 H (74-99) mg/dL Plasma Lactic Acid Justin (0.7-2.0) mmol/L Uric Acid 11.0 H (3.5-8.5) mg/dL Calcium 9.9 (8.4-10.2) mg/dL Phosphorus 4.8 H (2.5-4.5) mg/dL Magnesium 2.2 (1.6-2.3) mg/dL Iron (65-175) ug/dL TIBC (228-460) ug/dL % Saturation (15.00-50.00) Ferritin (22.0-322.0) ng/mL Total Bilirubin 0.9 (0.2-1.3) mg/dL AST 27 (17-59) U/L ALT 11 (4-49) U/L Alkaline Phosphatase 110 (38-126) U/L Lactate Dehydrogenase 561 (313-618) U/L Troponin I (0.000-0.034) ng/mL Total Protein 6.6 (6.3-8.2) g/dL Albumin 3.5 (3.5-5.0) g/dL Globulin 3.1 g/dL Albumin/Globulin Ratio 1.1 IgG (700.0-1600.0) mg/dL Coronavirus (PCR) (Not Detectd) 04/25/21 04/25/21 04/25/21 Range/Units 09:24 09:24 09:24 WBC (3.8-10.6) k/uL RBC (4.30-5.90) m/uL Hgb (13.0-17.5) gm/dL Hct (39.0-53.0) % MCV (80.0-100.0) fL MCH (25.0-35.0) pg MCHC (31.0-37.0) g/dL RDW (11.5-15.5) % Plt Count (150-450) k/uL MPV Neutrophils % % Neutrophils % (Manual) % Lymphocytes % % Lymphocytes % (Manual) % Monocytes % % Monocytes % (Manual) % Eosinophils % % Basophils % % Other Cells % % Neutrophils # (1.3-7.7) k/uL Neutrophils # (Manual) (1.3-7.7) k/uL Lymphocytes # (1.0-4.8) k/uL Lymphocytes # (Manual) (1.0-4.8) k/uL Monocytes # (0-1.0) k/uL Monocytes # (Manual) (0-1.0) k/uL Eosinophils # (0-0.7) k/uL Basophils # (0-0.2) k/uL Nucleated RBCs (0-0) /100 WBC Manual Slide Review Polychromasia Hypochromasia Poikilocytosis Anisocytosis Microcytosis Tear Drop Cells ESR 58 H (0-15) mm/hr Retic Count 4.0 H (0.5-2.0) % Haptoglobin (31.2-198.0) mg/dL PT (9.0-12.0) sec INR (<1.2) APTT D-Dimer (<0.60) mg/L FEU Sodium (137-145) mmol/L Potassium (3.5-5.1) mmol/L Chloride (98-107) mmol/L Carbon Dioxide (22-30) mmol/L Anion Gap mmol/L BUN (9-20) mg/dL Creatinine (0.66-1.25) mg/dL Est GFR (CKD-EPI)AfAm (>60 ml/min/1.73 sqM) Est GFR (CKD-EPI)NonAf (>60 ml/min/1.73 sqM) Glucose (74-99) mg/dL Plasma Lactic Acid Justin (0.7-2.0) mmol/L Uric Acid (3.5-8.5) mg/dL Calcium (8.4-10.2) mg/dL Phosphorus (2.5-4.5) mg/dL Magnesium (1.6-2.3) mg/dL Iron 24 L (65-175) ug/dL TIBC 245 (228-460) ug/dL % Saturation 9.80 L (15.00-50.00) Ferritin 39.2 (22.0-322.0) ng/mL Total Bilirubin (0.2-1.3) mg/dL AST (17-59) U/L ALT (4-49) U/L Alkaline Phosphatase (38-126) U/L Lactate Dehydrogenase (313-618) U/L Troponin I (0.000-0.034) ng/mL Total Protein (6.3-8.2) g/dL Albumin (3.5-5.0) g/dL Globulin g/dL Albumin/Globulin Ratio IgG 1290.0 (700.0-1600.0) mg/dL Coronavirus (PCR) (Not Detectd) 04/25/21 Range/Units 09:24 WBC (3.8-10.6) k/uL RBC (4.30-5.90) m/uL Hgb (13.0-17.5) gm/dL Hct (39.0-53.0) % MCV (80.0-100.0) fL MCH (25.0-35.0) pg MCHC (31.0-37.0) g/dL RDW (11.5-15.5) % Plt Count (150-450) k/uL MPV Neutrophils % % Neutrophils % (Manual) % Lymphocytes % % Lymphocytes % (Manual) % Monocytes % % Monocytes % (Manual) % Eosinophils % % Basophils % % Other Cells % % Neutrophils # (1.3-7.7) k/uL Neutrophils # (Manual) (1.3-7.7) k/uL Lymphocytes # (1.0-4.8) k/uL Lymphocytes # (Manual) (1.0-4.8) k/uL Monocytes # (0-1.0) k/uL Monocytes # (Manual) (0-1.0) k/uL Eosinophils # (0-0.7) k/uL Basophils # (0-0.2) k/uL Nucleated RBCs (0-0) /100 WBC Manual Slide Review Polychromasia Hypochromasia Poikilocytosis Anisocytosis Microcytosis Tear Drop Cells ESR (0-15) mm/hr Retic Count (0.5-2.0) % Haptoglobin 210.0 H (31.2-198.0) mg/dL PT (9.0-12.0) sec INR (<1.2) APTT D-Dimer (<0.60) mg/L FEU Sodium (137-145) mmol/L Potassium (3.5-5.1) mmol/L Chloride (98-107) mmol/L Carbon Dioxide (22-30) mmol/L Anion Gap mmol/L BUN (9-20) mg/dL Creatinine (0.66-1.25) mg/dL Est GFR (CKD-EPI)AfAm (>60 ml/min/1.73 sqM) Est GFR (CKD-EPI)NonAf (>60 ml/min/1.73 sqM) Glucose (74-99) mg/dL Plasma Lactic Acid Justin (0.7-2.0) mmol/L Uric Acid (3.5-8.5) mg/dL Calcium (8.4-10.2) mg/dL Phosphorus (2.5-4.5) mg/dL Magnesium (1.6-2.3) mg/dL Iron (65-175) ug/dL TIBC (228-460) ug/dL % Saturation (15.00-50.00) Ferritin (22.0-322.0) ng/mL Total Bilirubin (0.2-1.3) mg/dL AST (17-59) U/L ALT (4-49) U/L Alkaline Phosphatase (38-126) U/L Lactate Dehydrogenase (313-618) U/L Troponin I (0.000-0.034) ng/mL Total Protein (6.3-8.2) g/dL Albumin (3.5-5.0) g/dL Globulin g/dL Albumin/Globulin Ratio IgG (700.0-1600.0) mg/dL Coronavirus (PCR) (Not Detectd) - Radiology Data Two-view x-ray of the chest is obtained. Report was reviewed in its entirety. Impression by Dr. Peña shows emphysematous changes without acute process. CT chest angiography for pulmonary embolism was obtained. Report is reviewed in its entirety. Impression by Dr. Peña shows no central or lobar pulmonary embolism. Limited assessment of the segmental and subsegmental vessels due to poor opacification. Prominent lymphadenopathy and enlarged spleen similar to prior. Emphysematous changes. (Rin Cole) Disposition Decision to Admit Reason: Admit from EC Decision Date: 04/24/21 Decision Time: 22:02 <Rin Cole - Last Filed: 04/24/21 22:18> <Camelia Teran - Last Filed: 05/06/21 19:17> Clinical Impression: COPD exacerbation Disposition: ADMITTED IP TO THIS HOSP Condition: Stable
[2021-04-24 18:54] LABS: Anisocytosis Slight; HCT 33.9 % (39.0-53.0); HGB 10.6 gm/dL (13.0-17.5); Hypochromasia Moderate; MCH 23.2 pg (25.0-35.0); MCHC 31.2 g/dL (31.0-37.0); MCV 74.2 fL (80.0-100.0); Mean Platelet Volume 6.9; Microcytosis Moderate; Platelet Count 387 k/uL (150-450); Poikilocytosis Slight; RBC 4.57 m/uL (4.30-5.90); RDW 18.6 % (11.5-15.5); WBC 17.8 k/uL (3.8-10.6)
[2021-04-24 19:04] LABS: Albumin 3.7 g/dL (3.5-5.0); Calcium 10.4 mg/dL (8.4-10.2); Magnesium 2.1 mg/dL (1.6-2.3); Potassium 4.3 mmol/L (3.5-5.1); Total Bilirubin 1.2 mg/dL (0.2-1.3)
[2021-04-24 19:45] LABS: INR 3.1 (<1.2); Prothrombin Time 29.6 sec (9.0-12.0)
--- NOTE | 2021-04-24 19:55 | XR ---
EXAMINATION TYPE: XR chest 2V DATE OF EXAM: 04/24/2021 COMPARISON: Radiograph 11/18/2020 HISTORY: Difficulty breathing. TECHNIQUE: Frontal and lateral views of the chest are obtained. FINDINGS: There is reticular opacity throughout the lungs similar to prior. There is flattening of t he diaphragm. There is no focal air space opacity, pleural effusion, or pneumothorax seen. The cardi ac silhouette size is within normal limits. The osseous structures are intact. IMPRESSION: Emphysematous lungs without an acute process.
--- NOTE | 2021-04-24 21:33 | CT ---
EXAMINATION TYPE: CT chest angio for PE DATE OF EXAM: 04/24/2021 COMPARISON: CT angiography chest 10/26/2020 HISTORY: SOB CT DLP: 266.2 mGycm Automated exposure control for dose reduction was used. CONTRAST: CT Chest for pulmonary embolism performed with with IV Contrast, patient injected with 80 mL of Isovu e 370. FINDINGS: Artifacts from patient's arms overlying the chest slightly limits assessment. LUNGS: Emphysematous changes. No consolidation. There is no pleural effusion or pneumothorax seen. The tracheobronchial tree is patent. MEDIASTINUM: There is satisfactory enhancement of the pulmonary artery and its branches, there is no CT evidence for pulmonary embolism. Prominent axillary, AP window lymph nodes. No pericardial effusio n is seen. OTHER: Prominent retroperitoneal lymph nodes. The spleen is enlarged. IMPRESSION: 1. No central or lobar pulmonary embolism. Limited assessment of the segmental and subsegmental vess els due to poor opacification. 2. Prominent lymphadenopathy and an enlarged spleen similar to prior. 3. Emphysematous changes.
[2021-04-24 21:38] LABS: Lymphocytes # (M) 13.17 k/uL (1.0-4.8); Monocytes # (M) 0.18 k/uL (0-1.0); Neutrophils # (M) 4.45 k/uL (1.3-7.7); Neutrophils % (M) 25 %; Nucleated Red Blood Cells 0 /100 WBC (0-0); Total Cells Counted 100
[2021-04-24 21:41] LABS: Polychromasia Present
[2021-04-24] MEDS ORDERED: methylPREDNISolone SOD SUCCI 125 MG/2 ML VIAL IV STA (21:59)
[2021-04-24] MEDS ORDERED: IPRATROPIUM-ALBUTEROL 3 ML NEB INHALATION STA (21:59)
[2021-04-24] MEDS ORDERED: SODIUM CHLORIDE 0.9% 1,000 ML IV ONE (21:59)
[2021-04-24] MEDS ORDERED: AZITHROMYCIN 500 MG in SODIUM CHLORIDE 0.9% 250 ML IVPB STA (21:59)
[2021-04-24 22:13] LABS: INR 2.9 (<1.2); Partial Thromboplastin Time 40.2 sec (22.0-30.0); Prothrombin Time 27.6 sec (9.0-12.0)
[2021-04-24] MEDS ORDERED: NALOXONE 0.4 MG/ML 1 ML VIAL IV PRN (22:16)
[2021-04-24] MEDS ORDERED: IPRATROPIUM-ALBUTEROL 3 ML NEB INHALATION PRN (22:17)
[2021-04-25] MEDS ORDERED: SODIUM CHLORIDE 0.9% 1,000 ML IV STA (01:30)
[2021-04-25] MEDS: methylPREDNISolone SOD SUCCI 125 MG/2 ML VIAL IV SCH ×5 (01:34→23:39)
--- NOTE | 2021-04-25 01:50 | P.HPIM ---
History of Present Illness H&P Date: 04/24/21 Chief Complaint: shortness of breath 60-year-old male with CLL, COPD patient comes in today due to hypoxemia trouble breathing. He was checking his pulse ox at home and was dropping to the 80s, he claims that when he is resting doing nothing he would feel better however with slightest activity he will get severely short of breath he denies any fevers or chills he denies any sick contacts he claims that she has very mild cough sometimes productive of whitish yellowish sputum denies any hemoptysis denies any recent travel denies any history of blood clots. Denies any chest pain denies any nausea vomiting or abdominal pain he does report some dysuria denies any hematuria. He has quit smoking 5 years ago after smoking for so many years. He was diagnosed with COPD then he's been using inhalers. He's been sick this year as he had Covid back in October 2020 before that he had pneumonia in September 2020 and then in November 2020 he comes in with GI bleeding after he was on anticoagulation at home through injections subcu post Covid. Since then he's been doing okay he uses a nebulizer and rescue inhaler at home however for the past 5 days she's been feeling weak and progressive shortness of breath with exertion. For which today he decided to come in for evaluation In the ED he was found to have leukocytosis and elevated d-dimer he had a CT angiogram the chest done showed no acute PE however did show some lymphadenopathy and enlarged spleen which are both chronic nature, also showed emphysema. R also showed acute kidney injury, Covid was negative Patient had hypoxemia in the ED he was started on supplemental oxygen given some breathing treatments was admitted for further care Review of Systems Pertinent positives as noted in HPI. All other systems were reviewed and are negative Past Medical History Past Medical History: Cancer Additional Past Medical History / Comment(s): Chronic lymphocytic leukemia, emphysema, plueral effusion 09/23/2020, covid 10/2020 History of Any Multi-Drug Resistant Organisms: None Reported Past Surgical History: Appendectomy Past Anesthesia/Blood Transfusion Reactions: No Reported Reaction Past Psychological History: Anxiety, Depression Smoking Status: Former smoker Past Alcohol Use History: None Reported Past Drug Use History: Marijuana - Past Family History Family Family Medical History: No Reported History Medications and Allergies Home Medications Medication Instructions Recorded Confirmed Type Albuterol Sulfate [Proair Hfa] 2 puff INHALATION RT-QID PRN 09/23/20 04/24/21 History Calcium Carbonate [Tums] 1,000 mg PO TID PRN 09/23/20 04/24/21 History Cyclobenzaprine [Flexeril] 10 mg PO HS 09/23/20 04/24/21 History Ferrous Sulfate [Iron (65 MG 325 mg PO DAILY 09/23/20 04/24/21 History Elemental)] Fluticasone/Salmeterol [Advair 1 puff INHALATION RT-BID 09/23/20 04/24/21 History 250-50 Diskus] Omeprazole 40 mg PO DAILY 09/23/20 04/24/21 History PARoxetine [Paxil] 20 mg PO DAILY 09/23/20 04/24/21 History Tiotropium [place] [Spiriva] 1 cap INHALATION RT-DAILY 09/23/20 04/24/21 History Aspirin 325 mg PO DAILY #30 tab 09/27/20 04/24/21 Rx Cholecalciferol [Vitamin D3 (25 25 mcg PO DAILY #30 tablet 10/27/20 04/24/21 Rx Mcg = 1000 Iu)] Ascorbic Acid [Vitamin C] 1,000 mg PO DAILY 04/24/21 04/24/21 History Cyanocobalamin (Vitamin B-12) 1,000 mcg PO DAILY 04/24/21 04/24/21 History [Vitamin B-12] Diclofenac Sodium Gel [Voltaren 1 applic TOPICAL QID PRN 04/24/21 04/24/21 History Gel] Glucosam/Reynold-Msm1/C/Lorenzo/Bosw 2 tab PO DAILY 04/24/21 04/24/21 History [Glucosamine-Chondroitin Tablet] Inulin/Chromium Picolinate [Fiber 1 tab PO DAILY 04/24/21 04/24/21 History Gummies Chew] Multivitamins, Thera [Multivitamin 1 tab PO DAILY 04/24/21 04/24/21 History (formulary)] Allergies Allergy/AdvReac Type Severity Reaction Status Date / Time Penicillins Allergy Unknown Verified 04/24/21 19:17 Childhood Physical Exam Vitals: Vital Signs Temp Pulse Resp BP Pulse Ox 04/24/21 21:00 88 18 99/65 93 L 08/09/21 19:44 84 20 92/60 87 L 04/24/21 17:52 97.8 F 92 22 96/61 97 Intake and Output 04/24/21 04/24/21 04/24/21 06:59 14:59 22:59 Other: Weight 61.235 kg Constitutional: No acute distress, conversant, pleasant Eyes: Anicteric sclerae, moist conjunctiva, Pupils equal round reactive to light ENMT: NC/AT Oropharynx clear, no erythema, or exudates Neck: Supple, FROM, no masses, or JVD No carotid bruits No thyromegaly Lungs: Decreased breath sounds at lung bases with fine inspiratory rales, no wheezing Clear to percussion Normal respiratory effort, no accessory muscle use Cardiovascular: Heart regular in rate and rhythm, No murmurs, gallops, or rubs No peripheral edema Abdominal: Soft Nontender, no guarding, rebound or rigidity Abdomen moving with respiration Normoactive bowel sounds No hepatomegaly, No splenomegaly No palpable mass No abdominal wall hernia noted Skin: Normal temperature, tone, texture, turgor No induration No subcutaneous nodules No rash, lesions No ulcers Extremities: No digital cyanosis No clubbing Pedal pulses intact and symmetrical Radial pulses intact and symmetrical No calf tenderness Psychiatric: Alert and oriented to person, place and time Appropriate affect fair judgement Neuro Muscles Strength 5/5 in all 4 extremities Sensation to light touch grossly present throughout Cranial nerves II-XII grossly intact No focal sensory deficits Lymphatics: no palpable cervical or supraclavicular , or inguinal lymph nodes Results CBC & Chem 7: 04/24/21 18:34 04/24/21 18:34 Labs: Abnormal Lab Results - Last 24 Hours (Table) 04/24/21 04/24/21 04/24/21 Range/Units 18:34 18:34 18:34 WBC 17.8 H (3.8-10.6) k/uL Hgb 10.6 L (13.0-17.5) gm/dL Hct 33.9 L (39.0-53.0) % MCV 74.2 L (80.0-100.0) fL MCH 23.2 L (25.0-35.0) pg RDW 18.6 H (11.5-15.5) % Lymphocytes # (Manual) 13.17 H (1.0-4.8) k/uL PT 29.6 H (9.0-12.0) sec INR 3.1 H (<1.2) D-Dimer 24.96 H (<0.60) mg/L FEU Carbon Dioxide 21 L (22-30) mmol/L Creatinine 1.44 H (0.66-1.25) mg/dL Glucose 111 H (74-99) mg/dL Calcium 10.4 H (8.4-10.2) mg/dL Assessment and Plan Assessment: Acute hypoxic respiratory failure Acute COPD exacerbation Plan Supplemental oxygen Patient was given azithromycin in the ED DuoNeb's as needed Continue with inhalers Systemic parenteral steroids Pulmonary consultation for evaluation Assess ambulatory oxygen saturation the morning Patient again counseled to avoid smoke exposure Monitor vital signs Covid negative CT angios the chest was reviewed Acute kidney injury Patient received contrast for CT angios and chest Aggressive IV fluid hydration Avoid nephrotoxic meds Monitor urine output and renal function Dysuria Check urinalysis Monitor for any fevers Chronic conditions CLL with leukocytosis and anemia chronic in nature currently not on treatment Hematology consultation for follow-up CODE STATUS: Full code DVT prophylaxis: Heparin subcu 3 times a day Discussed with: Patient, ER, Anticipated length of stay more than [address]: Home A total of 75 minutes was spent on the care of this complex patient more than 50% of the time was spent in counseling and care coordination.
[2021-04-25] MEDS: IPRATROPIUM-ALBUTEROL 3 ML NEB INHALATION SCH ×4 (07:22→21:45)
[2021-04-25] MEDS ORDERED: IPRATROPIUM-ALBUTEROL 3 ML NEB INHALATION PRN (07:55)
[2021-04-25] MEDS ORDERED: NON FORMULARY DRUG (Tiotropium Bromide [Spiriva] 18 MCG Cap.W.Dev) INHALATION SCH (08:00)
[2021-04-25] MEDS ORDERED: SYMBICORT 80-4.5 MCG INHALER INHALATION SCH (08:00)
[2021-04-25] MEDS: PANTOPRAZOLE 40 MG TABLET PO SCH (08:43)
[2021-04-25] MEDS: ASPIRIN 325 MG TAB PO SCH (08:43)
[2021-04-25] MEDS: PARoxetine 20 MG TAB PO SCH (08:43)
[2021-04-25] MEDS: HEPARIN SODIUM,PORCINE/PF 5,000 UNIT/0.5 ML SYRINGE SQ SCH ×3 (08:43→23:39)
--- NOTE | 2021-04-25 09:22 | P.CNPUL ---
History of Present Illness Consult date: 04/25/21 Requesting physician: Kathryn Downs Reason for consult: dyspnea, cough, COPD, hypoxemia Chief complaint: Shortness of breath, cough, wheezing. History of present illness: Pulmonary/critical care consultation dated 04/25/2021. 60-year-old male, who looks much older than his stated age, who has a history of chronic lymphocytic leukemia and COPD. The patient arrives in the emergency room on April 24 at 1734. His complaint was that of increasing shortness of breath with any activity. In addition, he does have cough and chest tightness, as well as wheezing. He is coughing up phlegm. He does have an established history of COPD and apparently used to see a chemical checker at [facility]. Apparently he is not seen anybody recently. The patient was not receiving any IV fluids. He is on 3 L nasal cannula. He states he does not use oxygen at home. His primary care physician is Dr. Masters in [facility]. The patient states that he did have coronavirus infection and October 2020. It should be noted that even though the patient does not smoke currently, he has smoked for 43 straight years. White count 17.8, hemoglobin 10.6, hematocrit 33.9, and platelet count 387,000. PTT 27.6 INR 2.9 PTT is 40.2 and d-dimer is 16.30. Sodium 137, potassium 4.3, chlorides 106, CO2 21, anion gap 10, BUN 16, creatinine 1.44. Chest x-ray shows changes of COPD. Computed tomography scan shows no evidence of pulmonary embolism, changes of COPD, and significant thoracic adenopathy and splenomegaly, consistent with his known history of chronic leukocytic leukemia, unchanged. Review of Systems REVIEW OF SYSTEMS: CONSTITUTIONAL: [Negative.] NEUROLOGIC: [ Negative.] HEENT: [ Negative.] CARDIAC: [Negative.] PULMONARY: Shortness of breath, cough, chest tightness, wheezing, and phlegm production. GI: [Negative.] : [Negative.] RHEUMATOLOGIC: [ Negative.] IMMUNOLOGIC: [ Negative.] ENDOCRINE: [Negative. ] DERMATOLOGIC: [Negative.] Past Medical History Past Medical History: Cancer Additional Past Medical History / Comment(s): Chronic lymphocytic leukemia, emphysema, plueral effusion 09/23/2020, covid 10/2020 History of Any Multi-Drug Resistant Organisms: None Reported Past Surgical History: Appendectomy Past Anesthesia/Blood Transfusion Reactions: No Reported Reaction Past Psychological History: Anxiety, Depression Smoking Status: Former smoker Past Alcohol Use History: None Reported Past Drug Use History: Marijuana - Past Family History Family Family Medical History: No Reported History Medications and Allergies Home Medications Medication Instructions Recorded Confirmed Type Albuterol Sulfate [Proair Hfa] 2 puff INHALATION RT-QID PRN 09/23/20 04/24/21 History Calcium Carbonate [Tums] 1,000 mg PO TID PRN 09/23/20 04/24/21 History Cyclobenzaprine [Flexeril] 10 mg PO HS 09/23/20 04/24/21 History Ferrous Sulfate [Iron (65 MG 325 mg PO DAILY 09/23/20 04/24/21 History Elemental)] Fluticasone/Salmeterol [Advair 1 puff INHALATION RT-BID 09/23/20 04/24/21 History 250-50 Diskus] Omeprazole 40 mg PO DAILY 09/23/20 04/24/21 History PARoxetine [Paxil] 20 mg PO DAILY 09/23/20 04/24/21 History Tiotropium [place] [Spiriva] 1 cap INHALATION RT-DAILY 09/23/20 04/24/21 History Aspirin 325 mg PO DAILY #30 tab 09/27/20 04/24/21 Rx Cholecalciferol [Vitamin D3 (25 25 mcg PO DAILY #30 tablet 10/27/20 04/24/21 Rx Mcg = 1000 Iu)] Ascorbic Acid [Vitamin C] 1,000 mg PO DAILY 04/24/21 04/24/21 History Cyanocobalamin (Vitamin B-12) 1,000 mcg PO DAILY 04/24/21 04/24/21 History [Vitamin B-12] Diclofenac Sodium Gel [Voltaren 1 applic TOPICAL QID PRN 04/24/21 04/24/21 History Gel] Glucosam/Reynold-Msm1/C/Lorenzo/Bosw 2 tab PO DAILY 04/24/21 04/24/21 History [Glucosamine-Chondroitin Tablet] Inulin/Chromium Picolinate [Fiber 1 tab PO DAILY 04/24/21 04/24/21 History Gummies Chew] Multivitamins, Thera [Multivitamin 1 tab PO DAILY 04/24/21 04/24/21 History (formulary)] Allergies Allergy/AdvReac Type Severity Reaction Status Date / Time Penicillins Allergy Unknown Verified 04/24/21 19:17 Childhood Physical Exam Osteopathic Statement: *. No significant issues noted on an osteopathic structural exam other than those noted in the History and Physical/Consult. Vitals: Vital Signs Temp Pulse Resp BP Pulse Ox 04/25/21 08:35 97.7 F 98 18 120/76 91 L 04/25/21 07:36 74 16 04/25/21 07:22 87 16 94 L 04/25/21 06:23 88 18 120/76 96 04/25/21 05:48 93 22 98/65 97 04/25/21 02:29 92 21 99/68 96 04/24/21 22:38 84 18 91/64 96 04/24/21 22:35 85 04/24/21 22:25 81 04/24/21 21:00 88 18 99/65 93 L 04/24/21 19:44 84 20 92/60 87 L 04/24/21 17:52 97.8 F 92 22 96/61 97 Intake and Output 04/24/21 04/25/21 04/25/21 22:59 06:59 14:59 Other: Weight 61.235 kg No acute distress, oriented 3. The patient has no evidence of conversational dyspnea, use of accessory muscles, or audible wheezing. The patient's currently on 3 L. Saturations are excellent. HEENT examination is grossly unremarkable. Neck supple. Full range of motion. No adenopathy thyromegaly or neck vein distention. Cardiovascular examination reveals regular rhythm rate. S1-S2 normal. No S3 or S4. No discernible murmur noted. Heart sounds are distant. Heart rate 98 bpm. Lungs reveal diminished breath sounds bilaterally. Mild expiratory wheezes and rhonchi are noted. No crackles. There is prolongation on forced maneuver. Breath sounds are equal bilaterally but diminished throughout. Abdomen soft bowel sounds are heard. No masses or tenderness. Extremities are intact. No cyanosis clubbing or edema. Skin is without rash or lesion. Neurologic examination is brief but nonfocal. Results - Laboratory Findings CBC and BMP: 04/24/21 18:34 04/24/21 18:34 PT/INR, D-dimer PT 27.6 sec (9.0-12.0) H 04/24/21 21:20 INR 2.9 (<1.2) H 04/24/21 21:20 D-Dimer 16.30 mg/L FEU (<0.60) H 04/24/21 21:20 Abnormal lab findings: Abnormal Labs 04/24/21 04/24/21 04/24/21 18:34 18:34 18:34 WBC 17.8 H Hgb 10.6 L Hct 33.9 L MCV 74.2 L MCH 23.2 L RDW 18.6 H Lymphocytes # (Manual) 13.17 H PT 29.6 H INR 3.1 H APTT D-Dimer 24.96 H Carbon Dioxide 21 L Creatinine 1.44 H Glucose 111 H Calcium 10.4 H 04/24/21 21:20 WBC Hgb Hct MCV MCH RDW Lymphocytes # (Manual) PT 27.6 H INR 2.9 H APTT 40.2 H D-Dimer 16.30 H Carbon Dioxide Creatinine Glucose Calcium - Diagnostic Findings Chest x-ray: image reviewed CT scan - chest: image reviewed Assessment and Plan Assessment: Acute COPD exacerbation, likely complicated by purulent tracheobronchitis, without pasha pneumonia. Chronic lymphocytic leukemia. Prior history of heavy tobacco use. History of pleural effusion. Prior history of coronavirus infection, October 2020. History of anxiety/depression. Plan: Plan dated 04/25/2021. The patient will be treated in standard fashion, with Zithromax orally, Symbi anabel, albuterol sulfate and ipratropium bromide updrafts, and Solu-Medrol. Additional recommendations and suggestions are forthcoming. The patient should reestablish himself with head pulmonary/critical care doctor. He has not seen the prior one for some time. We will continue to follow make recommendations were appropriate. Prognosis is guarded. Time with Patient: Greater than 30
[2021-04-25 09:40] LABS: Anisocytosis Slight; Basophils # (A) 0.1 k/uL (0-0.2); Basophils % (A) 1 %; Eosinophils % (A) 0 %; HCT 31.9 % (39.0-53.0); Hypochromasia Marked; Lymphocytes % (A) 74 %; MCH 23.4 pg (25.0-35.0); MCHC 31.3 g/dL (31.0-37.0); MCV 74.8 fL (80.0-100.0); Mean Platelet Volume 6.4; Microcytosis Moderate; Monocytes # (A) 0.1 k/uL (0-1.0); Monocytes % (A) 0 %; Neutrophils # (A) 4.1 k/uL (1.3-7.7); Neutrophils % (A) 14 %; Platelet Count 439 k/uL (150-450); Poikilocytosis Slight; RBC 4.26 m/uL (4.30-5.90); WBC 28.6 k/uL (3.8-10.6)
[2021-04-25 10:20] LABS: ALT 11 U/L (4-49); AST 27 U/L (17-59); African American GFR (CKD) 68 (>60 ml/min/1.73 sqM); Albumin 3.5 g/dL (3.5-5.0); Albumin/Globulin Ratio 1.1; Alkaline Phosphatase 110 U/L (38-126); Anion Gap 11 mmol/L; Blood Urea Nitrogen 17 mg/dL (9-20); Calcium 9.9 mg/dL (8.4-10.2); Carbon Dioxide 18 mmol/L (22-30); Chloride 108 mmol/L (98-107); Globulin 3.1 g/dL; Glucose 276 mg/dL (74-99); LDH 561 U/L (313-618); Magnesium 2.2 mg/dL (1.6-2.3); Non-African American GFR(CKD) 59 (>60 ml/min/1.73 sqM); Phosphorus 4.8 mg/dL (2.5-4.5); Potassium 4.3 mmol/L (3.5-5.1); Sodium 137 mmol/L (137-145); Total Bilirubin 0.9 mg/dL (0.2-1.3); Total Protein 6.6 g/dL (6.3-8.2)
[2021-04-25 11:55] LABS: Glucose,Whole Blood 268 mg/dL (75-99)
[2021-04-25] MEDS: INSULIN ASPART (NovoLOG) 100 UNIT/ML VIAL SQ SCH ×3 (11:58→21:06)
--- NOTE | 2021-04-25 12:49 | P.CONS ---
History of Present Illness - Reason for Consult Consult date: 04/25/21 CLL Requesting physician: Sylvain العراقي - Chief Complaint Shortness of Breath - History of Present Illness Mr Cochran is a 60 yr old male pt of Dr. Chen who was referred around 11/2019 for persistent leukocytosis/erythrocytosis and thrombocytosis. 09/29/19 CBC revealed total wbc of 41.5K, significant for lymphocytosis, mild basoplilia and monocytosis, Hgb 17.7gm/dl, Hct 56%, plt 433K. 11/21/19 flow cytometry on peripheral blood was consistent with CLL. 11/22/19 CT CAP revealed borderline enlarged axillary and mediastinal nodes, retroperitoneal nodes, largest 2.7x1.5cm, splenomegaly measured 17.5cm. He was put on observation as overall he was asymptomatic with no other labs abnormalities. He was told to keep up with vaccines and reminded that he is at risk for infection. Last seen in ofc 08/2020, FISH studies show 13q deletion, monosomy 13, no other genetic abnormalities. He was inpt in November shortly after a hospitalization in October 2020 in which he presented with with pleural SOB and pleural effusion. Prior to procedure coags showed abnormal INR. Mixing study was not completed due to specimen, pt was lupus anticoagulant immunoglobulin positive. It was discussed with the patient, and the admitting service that this is actually a hypercoagulable state, causing artifactual in vitro elevated coags. Patient was asked to take aspirin as an outpatient although shortly after he was admitted with covid 19, cough, SOB, fever and weakness, On 10/25/20. He was placed on full dose anticoagulation (due to the increased hypercoagulability with COVID 19), given underlying lupus anticoagulant, as well as new acute illness which is also associated with high risk of thrombosis. He was discharged on Lovenox, full dose, for 6 weeks. He apparently stopped taking it after a few weeks, Since 11/17/20, because of having bitten his tongue and having some bleeding. when he was seen in ER in November it was found that he had evidence of GI blood loss, he presented that time with hemoglobin 6.5. He was taken off ongoing full dose anticoagulation and remained on aspirin. He has been stable since. His CLL has remained on obserbation, not requiring treatment. He presents now with complaints of shortness of breath. His CTA was negative for PE. Chest xray also performed. He is winded with conversation during evaluation today. oXYGEN LEVEL ON 3 l IS 86-91%, depending on his exertional conversation. . Review of Systems All systems: negative Constitutional: Reports as per HPI Past Medical History Past Medical History: Cancer Additional Past Medical History / Comment(s): Chronic lymphocytic leukemia, emp hysema, plueral effusion 09/23/2020, covid 10/2020 History of Any Multi-Drug Resistant Organisms: None Reported Past Surgical History: Appendectomy Past Anesthesia/Blood Transfusion Reactions: No Reported Reaction Past Psychological History: Anxiety, Depression Smoking Status: Former smoker Past Alcohol Use History: None Reported Past Drug Use History: Marijuana - Past Family History Family Family Medical History: No Reported History Medications and Allergies Home Medications Medication Instructions Recorded Confirmed Type Albuterol Sulfate [Proair Hfa] 2 puff INHALATION RT-QID PRN 09/23/20 04/24/21 History Calcium Carbonate [Tums] 1,000 mg PO TID PRN 09/23/20 04/24/21 History Cyclobenzaprine [Flexeril] 10 mg PO HS 09/23/20 04/24/21 History Ferrous Sulfate [Iron (65 MG 325 mg PO DAILY 09/23/20 04/24/21 History Elemental)] Fluticasone/Salmeterol [Advair 1 puff INHALATION RT-BID 09/23/20 04/24/21 History 250-50 Diskus] Omeprazole 40 mg PO DAILY 09/23/20 04/24/21 History PARoxetine [Paxil] 20 mg PO DAILY 09/23/20 04/24/21 History Tiotropium [place] [Spiriva] 1 cap INHALATION RT-DAILY 09/23/20 04/24/21 History Aspirin 325 mg PO DAILY #30 tab 09/27/20 04/24/21 Rx Cholecalciferol [Vitamin D3 (25 25 mcg PO DAILY #30 tablet 10/27/20 04/24/21 Rx Mcg = 1000 Iu)] Ascorbic Acid [Vitamin C] 1,000 mg PO DAILY 04/24/21 04/24/21 History Cyanocobalamin (Vitamin B-12) 1,000 mcg PO DAILY 04/24/21 04/24/21 History [Vitamin B-12] Diclofenac Sodium Gel [Voltaren 1 applic TOPICAL QID PRN 04/24/21 04/24/21 History Gel] Glucosam/Reynold-Msm1/C/Lorenzo/Bosw 2 tab PO DAILY 04/24/21 04/24/21 History [Glucosamine-Chondroitin Tablet] Inulin/Chromium Picolinate [Fiber 1 tab PO DAILY 04/24/21 04/24/21 History Gummies Chew] Multivitamins, Thera [Multivitamin 1 tab PO DAILY 04/24/21 04/24/21 History (formulary)] Allergies Allergy/AdvReac Type Severity Reaction Status Date / Time Penicillins Allergy Unknown Verified 04/24/21 19:17 Childhood Physical Exam Vitals: Vital Signs Temp Pulse Resp BP Pulse Ox 04/25/21 11:20 98 18 120/76 92 L 04/25/21 10:48 88 18 04/25/21 10:37 85 18 04/25/21 08:35 97.7 F 98 18 120/76 91 L 04/25/21 07:36 74 16 04/25/21 07:22 87 16 94 L 04/25/21 06:23 88 18 120/76 96 04/25/21 05:48 93 22 98/65 97 04/25/21 02:29 92 21 99/68 96 04/24/21 22:38 84 18 91/64 96 04/24/21 22:35 85 04/24/21 22:25 81 04/24/21 21:00 88 18 99/65 93 L 04/24/21 19:44 84 20 92/60 87 L 04/24/21 17:52 97.8 F 92 22 96/61 97 Intake and Output 04/24/21 04/25/21 04/25/21 22:59 06:59 14:59 Other: Weight 61.235 kg - Constitutional General appearance: Present: cooperative, no acute distress, thin - EENT Eyes: Present: anicteric sclerae, EOMI ENT: Present: hearing grossly normal - Respiratory Details: resp even and unlabored - Cardiovascular Heart sounds: normal: S1, S2 - Peripheral edema leg Peripheral Edema: bilateral: None - Neurologic Neurologic: Present: CNII-XII intact - Musculoskeletal Musculoskeletal: Present: strength equal bilaterally - Psychiatric Psychiatric: Present: A&O x's 3, appropriate affect, intact judgment & insight Results CBC & Chem 7: 04/25/21 09:24 04/25/21 09:24 Labs: Abnormal Lab Results - Last 24 Hours (Table) 04/24/21 04/24/21 04/24/21 Range/Units 18:34 18:34 18:34 WBC 17.8 H (3.8-10.6) k/uL RBC (4.30-5.90) m/uL Hgb 10.6 L (13.0-17.5) gm/dL Hct 33.9 L (39.0-53.0) % MCV 74.2 L (80.0-100.0) fL MCH 23.2 L (25.0-35.0) pg RDW 18.6 H (11.5-15.5) % Lymphocytes # (Manual) 13.17 H (1.0-4.8) k/uL PT 29.6 H (9.0-12.0) sec INR 3.1 H (<1.2) APTT (22.0-30.0) sec D-Dimer 24.96 H (<0.60) mg/L FEU Chloride (98-107) mmol/L Carbon Dioxide 21 L (22-30) mmol/L Creatinine 1.44 H (0.66-1.25) mg/dL Glucose 111 H (74-99) mg/dL POC Glucose (mg/dL) (75-99) mg/dL Uric Acid (3.5-8.5) mg/dL Calcium 10.4 H (8.4-10.2) mg/dL Phosphorus (2.5-4.5) mg/dL 04/24/21 04/25/21 04/25/21 Range/Units 21:20 09:24 09:24 WBC 28.6 H (3.8-10.6) k/uL RBC 4.26 L (4.30-5.90) m/uL Hgb 10.0 L (13.0-17.5) gm/dL Hct 31.9 L (39.0-53.0) % MCV 74.8 L (80.0-100.0) fL MCH 23.4 L (25.0-35.0) pg RDW 19.0 H (11.5-15.5) % Lymphocytes # (Manual) (1.0-4.8) k/uL PT 27.6 H (9.0-12.0) sec INR 2.9 H (<1.2) APTT 40.2 H (22.0-30.0) sec D-Dimer 16.30 H (<0.60) mg/L FEU Chloride 108 H (98-107) mmol/L Carbon Dioxide 18 L (22-30) mmol/L Creatinine 1.29 H (0.66-1.25) mg/dL Glucose 276 H (74-99) mg/dL POC Glucose (mg/dL) (75-99) mg/dL Uric Acid 11.0 H (3.5-8.5) mg/dL Calcium (8.4-10.2) mg/dL Phosphorus 4.8 H (2.5-4.5) mg/dL 04/25/21 Range/Units 11:52 WBC (3.8-10.6) k/uL RBC (4.30-5.90) m/uL Hgb (13.0-17.5) gm/dL Hct (39.0-53.0) % MCV (80.0-100.0) fL MCH (25.0-35.0) pg RDW (11.5-15.5) % Lymphocytes # (Manual) (1.0-4.8) k/uL PT (9.0-12.0) sec INR (<1.2) APTT (22.0-30.0) sec D-Dimer (<0.60) mg/L FEU Chloride (98-107) mmol/L Carbon Dioxide (22-30) mmol/L Creatinine (0.66-1.25) mg/dL Glucose (74-99) mg/dL POC Glucose (mg/dL) 268 H (75-99) mg/dL Uric Acid (3.5-8.5) mg/dL Calcium (8.4-10.2) mg/dL Phosphorus (2.5-4.5) mg/dL Chest x-ray: report reviewed CT scan - chest: report reviewed Assessment and Plan (1) Microcytic anemia Current Visit: Yes Status: Acute Code(s): D50.9 - IRON DEFICIENCY ANEMIA, UNSPECIFIED SNOMED Code(s): 149565852 (2) Acute respiratory distress syndrome in adult Current Visit: No Status: Acute Code(s): J80 - ACUTE RESPIRATORY DISTRESS SYNDROME SNOMED Code(s): 08382899 (3) Symptomatic anemia Current Visit: No Status: Acute Priority: High Code(s): D64.9 - ANEMIA, UNSPECIFIED SNOMED Code(s): 179946900 (4) Chronic lymphocytic leukemia not having achieved remission Current Visit: No Status: Chronic Priority: Medium Code(s): C91.10 - CHRONIC LYMPHOCYTIC LEUK OF B-CELL TYPE NOT ACHIEVE REMIS SNOMED Code(s): 15279710 (5) Lupus anticoagulant positive Current Visit: No Status: Chronic Priority: Medium Code(s): R76.0 - RAISED ANTIBODY TITER SNOMED Code(s): 62625098 (6) Thoracic lymphadenopathy Current Visit: No Status: Chronic Priority: Medium Code(s): R59.0 - LOCALIZED ENLARGED LYMPH NODES SNOMED Code(s): 328150862 Plan: Assessment and Recommendations: CLL: - As far as CLL his WBC and adenopathy appears stable - He can follow up with Dr. Chen as scheduled as outpatient - Check for tumor lysis given increased calcium, renal function Acute on Chronic Respiratory Failure: - Requiring 3-5L oxygen to maintain o2 greater than 90% - CTA negative - Pulmonary is following Microcytic Anemia: - Evidence of anemia present and microcytosis - Repeat Iron Studies, hemolysis labs - Likely component of blood loss anemia from recent GI blood loss admission while on anticoagualtions for COVID infection. Increased Renal Function: - Likely pre-renal dehydration - Approved after hydration Physician Attest: I have completed the full history and physical and agree with above dictation, dictated as a ascribe.
[2021-04-25 14:06] LABS: Erythrocyte Sedimentation Rate 58 mm/hr (0-15)
[2021-04-25 14:46] LABS: Lymphocytes # (M) 22.88 k/uL (1.0-4.8); Monocytes # (M) 0.57 k/uL (0-1.0); Neutrophils # (M) 5.15 k/uL (1.3-7.7); Neutrophils % (M) 18 %; Nucleated Red Blood Cells 0 /100 WBC (0-0); Total Cells Counted 100
[2021-04-25 14:48] LABS: Tear Drop Cells Present
--- NOTE | 2021-04-25 16:10 | P.PN ---
Subjective Progress Note Date: 04/25/21 Hospital course: Patient is a very pleasant 60-year-old male with a past medical history of chronic lymphocytic leukemia, COPD, history of Covid in Oct 2020, and pneumonia. He presented to the emergency department secondary to increased shortness of breath and hypoxia after checking his home pulse ox with reports of dropping into the 80s. He was seen and fully evaluated in the emergency department and found to have leukocytosis with WBC count of 17.8, chest x-ray showing emphysematous changes and negative for acute cardiopulmonary process, elevated d-dimer 24.96, and CTA chest negative for acute PE revealing emphysematous changes as well as lymphodenopathy and enlarged spleen which are both chronic in nature. Covid 19 PCR negative. Troponin negative. EKG normal sinus rhythm at 86 bpm with no noted T-wave or ST abnormalities. Patient was placed on supplemental oxygen, started on azithromycin, and steroids. He was admitted under our services with consultation to cardiology. Physical exam: Patient seen and fully evaluated at the bedside this morning. He reports improvement of his shortness of breath since arrival but states continued shortness of breath with exertion, increase in coughing frequency, increase in sputum productivity, and generalized fatigue. Patient currently on 4 L O2 via nasal cannula. He denies having any headache, lightheadedness, dizziness, chest pain, palpitations, or experiencing any numbness/tingling/weakness/swelling in his extremities. Vital signs reviewed and stable. General: Nontoxic, no distress and appears stated age. Thin build. Derm: Skin warm and dry, normal coloration for ethnicity. Head: Atraumatic, normocephalic and symmetric. Eyes: EOMs intact, no lid lag, and anicteric sclera Mouth: no lip lesions, mucus membranes moist Cardiovascular: regular rate and rhythm with normal S1S2, no murmur, positive posterior tibial pulses bilaterally, and cap refill < 2 seconds. Lungs: Respirations even, regular, and unlabored on 4 L O2 via nasal cannula with SpO2 of 91%. Equal air movement, soft diffuse expiratory wheezes bilaterally, no rhonchi, rales, or crackles noted. No accessory muscle usage. Abdominal: soft, nontender to palpation, no guarding, no appreciable organomegaly Ext: ROM intact. No gross muscle atrophy, no edema, no contractures Neuro: Speech clear, face symmetrical and CN II-XII grossly intact with no noted focal neuro deficits Psych: Alert and oriented to person, place, time, and situation. Appropriate and pleasant affect. Assessment and Plan of Care: Acute on chronic respiratory failure with hypoxia Acute COPD exacerbation -Chest x-ray showing emphysematous changes and negative for acute cardiopulmonary process -CTA chest negative for acute PE revealing emphysematous changes as well as lymphodenopathy and enlarged spleen which are both chronic in nature. -Covid 19 PCR negative. -Consult to Pulmonology, appreciate further recommendations. -Oxygenation to be administered and titrated as needed to maintain SPO2 equal to or greater than 92%, wean once patient tolerates -Telemetry monitoring. -Continuation of Symbicort -Duonebs as needed for SOB and/or wheezing -Incentive Spirometry -Steroids: Solu-Medrol -Antibiotics: Azithromycin Elevated d-dimer, CTA chest negative for acute PE KEERTHI, improved -Continue close monitoring with repeat a.m. labs. Other Chronic conditions include: Leukocytosis and stable Chronic Anemia secondary to CLL. CODE STATUS: Full code DVT prophylaxis: Heparin Discussed with: Patient and RN Anticipated discharge date: Clinical course to determine Anticipated discharge place: Home with home care A total of 40 minutes was spent on the care of this complex patient more than 50% of the time was spent in counseling and care coordination. Objective - Vital Signs Vital signs: Vital Signs Temp 97.7 F 04/25/21 08:35 Pulse 98 04/25/21 11:20 Resp 18 04/25/21 11:20 BP 120/76 04/25/21 11:20 Pulse Ox 92 L 04/25/21 11:20 Intake & Output 04/24/21 04/25/21 04/25/21 18:59 06:59 18:59 Weight 61.235 kg - Labs CBC & Chem 7: 04/25/21 09:24 04/25/21 09:24 Labs: Abnormal Lab Results - Last 24 Hours (Table) 04/24/21 04/24/21 04/24/21 Range/Units 18:34 18:34 18:34 WBC 17.8 H (3.8-10.6) k/uL RBC (4.30-5.90) m/uL Hgb 10.6 L (13.0-17.5) gm/dL Hct 33.9 L (39.0-53.0) % MCV 74.2 L (80.0-100.0) fL MCH 23.2 L (25.0-35.0) pg RDW 18.6 H (11.5-15.5) % Lymphocytes # (1.0-4.8) k/uL Lymphocytes # (Manual) 13.17 H (1.0-4.8) k/uL ESR (0-15) mm/hr Retic Count (0.5-2.0) % PT 29.6 H (9.0-12.0) sec INR 3.1 H (<1.2) APTT (22.0-30.0) sec D-Dimer 24.96 H (<0.60) mg/L FEU Chloride (98-107) mmol/L Carbon Dioxide 21 L (22-30) mmol/L Creatinine 1.44 H (0.66-1.25) mg/dL Glucose 111 H (74-99) mg/dL POC Glucose (mg/dL) (75-99) mg/dL Uric Acid (3.5-8.5) mg/dL Calcium 10.4 H (8.4-10.2) mg/dL Phosphorus (2.5-4.5) mg/dL 04/24/21 04/25/21 04/25/21 Range/Units 21:20 09:24 09:24 WBC 28.6 H (3.8-10.6) k/uL RBC 4.26 L (4.30-5.90) m/uL Hgb 10.0 L (13.0-17.5) gm/dL Hct 31.9 L (39.0-53.0) % MCV 74.8 L (80.0-100.0) fL MCH 23.4 L (25.0-35.0) pg RDW 19.0 H (11.5-15.5) % Lymphocytes # 21.0 H (1.0-4.8) k/uL Lymphocytes # (Manual) 22.88 H (1.0-4.8) k/uL ESR (0-15) mm/hr Retic Count (0.5-2.0) % PT 27.6 H (9.0-12.0) sec INR 2.9 H (<1.2) APTT 40.2 H (22.0-30.0) sec D-Dimer 16.30 H (<0.60) mg/L FEU Chloride 108 H (98-107) mmol/L Carbon Dioxide 18 L (22-30) mmol/L Creatinine 1.29 H (0.66-1.25) mg/dL Glucose 276 H (74-99) mg/dL POC Glucose (mg/dL) (75-99) mg/dL Uric Acid 11.0 H (3.5-8.5) mg/dL Calcium (8.4-10.2) mg/dL Phosphorus 4.8 H (2.5-4.5) mg/dL 04/25/21 04/25/21 Range/Units 09:24 11:52 WBC (3.8-10.6) k/uL RBC (4.30-5.90) m/uL Hgb (13.0-17.5) gm/dL Hct (39.0-53.0) % MCV (80.0-100.0) fL MCH (25.0-35.0) pg RDW (11.5-15.5) % Lymphocytes # (1.0-4.8) k/uL Lymphocytes # (Manual) (1.0-4.8) k/uL ESR 58 H (0-15) mm/hr Retic Count 4.0 H (0.5-2.0) % PT (9.0-12.0) sec INR (<1.2) APTT (22.0-30.0) sec D-Dimer (<0.60) mg/L FEU Chloride (98-107) mmol/L Carbon Dioxide (22-30) mmol/L Creatinine (0.66-1.25) mg/dL Glucose (74-99) mg/dL POC Glucose (mg/dL) 268 H (75-99) mg/dL Uric Acid (3.5-8.5) mg/dL Calcium (8.4-10.2) mg/dL Phosphorus (2.5-4.5) mg/dL
[2021-04-25 17:33] LABS: Glucose,Whole Blood 215 mg/dL (75-99)
[2021-04-25 20:31] LABS: Glucose,Whole Blood 188 mg/dL (75-99)
[2021-04-25] MEDS ORDERED: CYCLOBENZAPRINE 10 MG TAB PO SCH (21:00)
[2021-04-25] MEDS: SYMBICORT 160-4.5 MCG INHALER INHALATION SCH (21:45)
[2021-04-25] MEDS ORDERED: AZITHROMYCIN 500 MG TAB PO SCH (22:00)
[2021-04-25 22:29] LABS: Ferritin 39.2 ng/mL (22.0-322.0)
[2021-04-25 22:37] LABS: % Iron Saturation 9.8 (15.00-50.00)
[2021-04-25] MEDS ORDERED: AZITHROMYCIN 500 MG in SODIUM CHLORIDE 0.9% 250 ML IVPB SCH (23:00)
[2021-04-26] MEDS: methylPREDNISolone SOD SUCCI 125 MG/2 ML VIAL IV SCH (05:32)
[2021-04-26 07:02] LABS: Glucose,Whole Blood 163 mg/dL (75-99)
[2021-04-26] MEDS: PANTOPRAZOLE 40 MG TABLET PO SCH (07:37)
[2021-04-26] MEDS: PARoxetine 20 MG TAB PO SCH (07:37)
[2021-04-26] MEDS: ASPIRIN 325 MG TAB PO SCH (07:37)
[2021-04-26] MEDS: HEPARIN SODIUM,PORCINE/PF 5,000 UNIT/0.5 ML SYRINGE SQ SCH (07:38)
[2021-04-26] MEDS: INSULIN ASPART (NovoLOG) 100 UNIT/ML VIAL SQ SCH ×2 (07:38→13:43)
[2021-04-26] MEDS: SYMBICORT 160-4.5 MCG INHALER INHALATION SCH (07:42)
[2021-04-26] MEDS: IPRATROPIUM-ALBUTEROL 3 ML NEB INHALATION SCH ×2 (07:42→11:11)
[2021-04-26 08:31] VITALS: BP 125/63; TEMP 97.7
[2021-04-26] MEDS ORDERED: SODIUM FERRIC GLUCONAT-SUCROSE 125 MG in SODIUM CHLORIDE 0.9% 100 ML IVPB SCH (09:00)
[2021-04-26 10:48] VITALS: PULSE 96
[2021-04-26 11:14] VITALS: RESP 18
[2021-04-26 11:35] LABS: African American GFR (CKD) 67.8 (60.0-200.0); Albumin 3.5 g/dL (3.80-4.90); Albumin/Globulin Ratio 1.4 (1.60-3.17); Anion Gap 8.3 mmol/L (4.00-12.00); BUN/Creat Ratio 19.23 Ratio (12.00-20.00); Calcium 9.4 mg/dL (8.7-10.3); Carbon Dioxide 21.7 mmol/L (21.6-31.8); Globulin 2.5 g/dL (1.6-3.3); Non-African American GFR(CKD) 58.5 (60.0-200.0); Potassium 4.6 mmol/L (3.5-5.5); Total Bilirubin 0.7 mg/dL (0.3-1.2)
[2021-04-26 12:01] LABS: Glucose,Whole Blood 202 mg/dL (75-99)
[2021-04-26 12:15] LABS: Anisocytosis (M) 2+; Basophils # (M) 0 X 10*3/uL (0.00-0.10); Eosinophils # (M) 0 X 10*3/uL (0.04-0.35); HCT 30.6 % (39.6-50.0); HGB 8.4 g/dL (13.0-17.0); Lymphocytes # (M) 26.84 X 10*3/uL (0.90-5.00); MCH 21.6 pg (27.0-32.0); MCHC 27.5 g/dL (32.0-37.0); MCV 78.9 fL (80.0-97.0); Mean Platelet Volume 8.2 fL (9.5-12.2); Monocytes # (M) 0.37 X 10*3/uL (0.20-1.00); Neutrophils # (M) 10.07 X 10*3/uL (2.00-8.90); Neutrophils % (M) 27 %; Platelet Count 341 X 10*3/uL (140-440); RBC 3.88 X 10*6/uL (4.40-5.60); Smudge Cells PRESENT; WBC 37.28 X 10*3/uL (4.50-10.00)
--- NOTE | 2021-04-26 13:00 | P.DS ---
Providers Date of admission: 04/25/21 11:09 Expected date of discharge: 04/26/21 Attending physician: Kathryn Downs MD Consults: 04/24/21 22:16 Consult Physician Routine Consulting Provider: Luis A Velazquez Consult Reason/Comments: COPD exacerbation Do you want consulting provider notified?: Yes 04/25/21 01:28 Consult Physician Routine Consulting Provider: Teri Chen Consult Reason/Comments: CLL, known to doc Do you want consulting provider notified?: Yes, Notify in am Primary care physician: Mikhail Masters Hospital Course: Discharge Diagnosis: Acute exacerbation of COPD Acute on chronic hypoxic respiratory failure Iron deficiency anemia KEERTHI CLL Leukocytosis due to CLL and steroid use History of prior tobacco abuse Hospital Course: Patient is a 60-year-old male with a history of CLL, COPD, and prior Covid along with pneumonia who initially presented with complaints of shortness of breath and hypoxia at home. In the ER he underwent an extensive evaluation. Chest x- ray showed emphysematous changes and was negative for an acute cardiopulmonary process. He was found have an elevated d-dimer and underwent CT of the chest which was negative for PE but did demonstrate lymphadenopathy and an enlarged spleen chronic in nature reflective of his CLL. Repeat COVID PCR was negative. Troponin was negative. He is admitted for further monitoring. He was placed on oxygen, Zithromax, and steroids. He was seen by pulmonary who agreed with plan of care. He had a rapid improvement in his breathing and he was determined stable for discharge. Follow-up: Complete steroid course, completing antibiotic course, reestablish with service now developer, follow with Dr. Masters in 3-5 days. Patient seen and examined at bedside. No chest pain, breathing much better, no nausea. Vital signs reviewed and stable. General: non toxic, no distress, appears older than stated age Derm: warm, dry Head: atraumatic, normocephalic, symmetric Eyes: EOMI, no lid lag, anicteric sclera Mouth: no lip lesion, mucus membranes moist Cardiovascular: S1S2 reg, no murmur, positive posterior tibial pulse bilateral, Lungs: Course bs bilateral, no rhonchi, no rales , no accessory muscle use Abdominal: soft, nontender to palpation, no guarding, no appreciable organomegaly Ext: no gross muscle atrophy, no edema, no contractures Neuro: CN II-XI grossly intact, no focal neuro deficits Psych: Alert, oriented, appropriate affect A total of 37 minutes of time were spent preparing this complex discharge s sylvie . Patient Condition at Discharge: Stable Plan - Discharge Summary Discharge Rx Participant: Yes New Discharge Prescriptions: New predniSONE [Deltasone] 60 mg PO DAILY #15 tab Azithromycin [Zithromax] 500 mg PO DAILY@2200 #4 tab Continue Calcium Carbonate [Tums] 1,000 mg PO TID PRN PRN Reason: Heartburn Tiotropium [place] [Spiriva] 1 cap INHALATION RT-DAILY PARoxetine [Paxil] 20 mg PO DAILY Albuterol Sulfate [Proair Hfa] 2 puff INHALATION RT-QID PRN PRN Reason: Shortness Of Breath Omeprazole 40 mg PO DAILY Fluticasone/Salmeterol [Advair 250-50 Diskus] 1 puff INHALATION RT-BID Ferrous Sulfate [Iron (65 MG Elemental)] 325 mg PO DAILY Cyclobenzaprine [Flexeril] 10 mg PO HS Aspirin 325 mg PO DAILY #30 tab Cholecalciferol [Vitamin D3 (25 Mcg = 1000 Iu)] 25 mcg PO DAILY #30 tablet Glucosam/Reynold-Msm1/C/Lorenzo/Bosw [Glucosamine-Chondroitin Tablet] 2 tab PO DAILY Cyanocobalamin (Vitamin B-12) [Vitamin B-12] 1,000 mcg PO DAILY Multivitamins, Thera [Multivitamin (formulary)] 1 tab PO DAILY Inulin/Chromium Picolinate [Fiber Gummies Chew] 1 tab PO DAILY Diclofenac Sodium Gel [Voltaren Gel] 1 applic TOPICAL QID PRN PRN Reason: Pain Ascorbic Acid [Vitamin C] 1,000 mg PO DAILY Discharge Medication List Albuterol Sulfate [Proair Hfa] 2 puff INHALATION RT-QID PRN 09/23/20 [History] Calcium Carbonate [Tums] 1,000 mg PO TID PRN 09/23/20 [History] Cyclobenzaprine [Flexeril] 10 mg PO HS 09/23/20 [History] Ferrous Sulfate [Iron (65 MG Elemental)] 325 mg PO DAILY 09/23/20 [History] Fluticasone/Salmeterol [Advair 250-50 Diskus] 1 puff INHALATION RT-BID 09/23/20 [History] Omeprazole 40 mg PO DAILY 09/23/20 [History] PARoxetine [Paxil] 20 mg PO DAILY 09/23/20 [History] Tiotropium [place] [Spiriva] 1 cap INHALATION RT-DAILY 09/23/20 [History] Aspirin 325 mg PO DAILY #30 tab 09/27/20 [Rx] Cholecalciferol [Vitamin D3 (25 Mcg = 1000 Iu)] 25 mcg PO DAILY #30 tablet 10/27/20 [Rx] Ascorbic Acid [Vitamin C] 1,000 mg PO DAILY 04/24/21 [History] Cyanocobalamin (Vitamin B-12) [Vitamin B-12] 1,000 mcg PO DAILY 04/24/21 [History] Diclofenac Sodium Gel [Voltaren Gel] 1 applic TOPICAL QID PRN 04/24/21 [History] Glucosam/Reynold-Msm1/C/Lorenzo/Bosw [Glucosamine-Chondroitin Tablet] 2 tab PO DAILY 04/24/21 [History] Inulin/Chromium Picolinate [Fiber Gummies Chew] 1 tab PO DAILY 04/24/21 [History] Multivitamins, Thera [Multivitamin (formulary)] 1 tab PO DAILY 04/24/21 [History] Azithromycin [Zithromax] 500 mg PO DAILY@2200 #4 tab 04/26/21 [Rx] predniSONE [Deltasone] 60 mg PO DAILY #15 tab 04/26/21 [Rx] Follow up Appointment(s)/Referral(s): Mikhail Masters MD [Primary Care Provider] - 1-2 days Luis A Velazquez DO [Doctor of Osteopathic Medicine] - 2 Weeks Discharge Disposition: HOME SELF-CARE
--- NOTE | 2021-04-26 13:47 | P.PN ---
Subjective Progress Note Date: 04/26/21 iron studies low, Question recurrent gi bleeding. Objective - Vital Signs Vital signs: Vital Signs Temp 97.7 F 04/26/21 07:56 Pulse 96 04/26/21 10:42 Resp 18 04/26/21 11:14 BP 125/63 04/26/21 07:56 Pulse Ox 94 L 04/26/21 11:14 Intake & Output 04/25/21 04/26/21 04/26/21 18:59 06:59 18:59 Intake Total 600 Balance 600 Weight 61.235 kg Intake: Intake, IV Titration 600 Amount Sodium Chloride 0.9% 1, 600 000 ml @ 100 mls/hr IV . Q10H STA Rx#:[id number] Other: Voiding Method Toilet Toilet # Voids 2 - Labs CBC & Chem 7: 04/26/21 07:10 04/26/21 07:10 Labs: Abnormal Lab Results - Last 24 Hours (Table) 04/25/21 04/25/21 04/25/21 Range/Units 09:24 09:24 09:24 WBC (4.50-10.00) X 10*3/uL RBC (4.40-5.60) X 10*6/uL Hgb (13.0-17.0) g/dL Hct (39.6-50.0) % MCV (80.0-97.0) fL MCH (27.0-32.0) pg MCHC (32.0-37.0) g/dL RDW (11.5-14.5) % MPV (9.5-12.2) fL Absolute Nucleated RBC (0.00-0.00) X 10*3/uL Neutrophils # (Manual) (2.00-8.90) X 10*3/uL Lymphocytes # 21.0 H (1.0-4.8) k/uL Lymphocytes # (Manual) 22.88 H (1.0-4.8) k/uL Eosinophils # (Manual) (0.04-0.35) X 10*3/uL NRBC/100 WBC Diff (0.0-0.0) /100 WBCS ESR 58 H (0-15) mm/hr Chloride (96-109) mmol/L Est GFR (CKD-EPI)NonAf (60.0-200.0) Glucose (70-110) mg/dL POC Glucose (mg/dL) (75-99) mg/dL Iron 24 L (65-175) ug/dL % Saturation 9.80 L (15.00-50.00) Total Protein (6.2-8.2) g/dL Albumin (3.80-4.90) g/dL Albumin/Globulin Ratio (1.60-3.17) g/dL 04/25/21 04/25/21 04/26/21 Range/Units 17:25 20:30 07:01 WBC (4.50-10.00) X 10*3/uL RBC (4.40-5.60) X 10*6/uL Hgb (13.0-17.0) g/dL Hct (39.6-50.0) % MCV (80.0-97.0) fL MCH (27.0-32.0) pg MCHC (32.0-37.0) g/dL RDW (11.5-14.5) % MPV (9.5-12.2) fL Absolute Nucleated RBC (0.00-0.00) X 10*3/uL Neutrophils # (Manual) (2.00-8.90) X 10*3/uL Lymphocytes # (1.0-4.8) k/uL Lymphocytes # (Manual) (1.0-4.8) k/uL Eosinophils # (Manual) (0.04-0.35) X 10*3/uL NRBC/100 WBC Diff (0.0-0.0) /100 WBCS ESR (0-15) mm/hr Chloride (96-109) mmol/L Est GFR (CKD-EPI)NonAf (60.0-200.0) Glucose (70-110) mg/dL POC Glucose (mg/dL) 215 H 188 H 163 H (75-99) mg/dL Iron (65-175) ug/dL % Saturation (15.00-50.00) Total Protein (6.2-8.2) g/dL Albumin (3.80-4.90) g/dL Albumin/Globulin Ratio (1.60-3.17) g/dL 04/26/21 04/26/21 04/26/21 Range/Units 07:10 07:10 12:00 WBC 37.28 H (4.50-10.00) X 10*3/uL RBC 3.88 L (4.40-5.60) X 10*6/uL Hgb 8.4 L (13.0-17.0) g/dL Hct 30.6 L (39.6-50.0) % MCV 78.9 L (80.0-97.0) fL MCH 21.6 L (27.0-32.0) pg MCHC 27.5 L (32.0-37.0) g/dL RDW 21.0 H (11.5-14.5) % MPV 8.2 L (9.5-12.2) fL Absolute Nucleated RBC 0.04 H (0.00-0.00) X 10*3/uL Neutrophils # (Manual) 10.07 H (2.00-8.90) X 10*3/uL Lymphocytes # (1.0-4.8) k/uL Lymphocytes # (Manual) 26.84 H (1.0-4.8) k/uL Eosinophils # (Manual) 0 L (0.04-0.35) X 10*3/uL NRBC/100 WBC Diff 0.1 H (0.0-0.0) /100 WBCS ESR (0-15) mm/hr Chloride 110 H (96-109) mmol/L Est GFR (CKD-EPI)NonAf 58.5 L (60.0-200.0) Glucose 157 H (70-110) mg/dL POC Glucose (mg/dL) 202 H (75-99) mg/dL Iron (65-175) ug/dL % Saturation (15.00-50.00) Total Protein 6.0 L (6.2-8.2) g/dL Albumin 3.50 L (3.80-4.90) g/dL Albumin/Globulin Ratio 1.40 L (1.60-3.17) g/dL Assessment and Plan (1) Microcytic anemia Current Visit: Yes Status: Acute Code(s): D50.9 - IRON DEFICIENCY ANEMIA, UNSPECIFIED SNOMED Code(s): 655340709 (2) Acute respiratory distress syndrome in adult Current Visit: No Status: Acute Code(s): J80 - ACUTE RESPIRATORY DISTRESS SYNDROME SNOMED Code(s): 53168083 (3) Symptomatic anemia Current Visit: No Status: Acute Priority: High Code(s): D64.9 - ANEMIA, UNSPECIFIED SNOMED Code(s): 191439816 (4) Chronic lymphocytic leukemia not having achieved remission Current Visit: No Status: Chronic Priority: Medium Code(s): C91.10 - CHRONIC LYMPHOCYTIC LEUK OF B-CELL TYPE NOT ACHIEVE REMIS SNOMED Code(s): 94255254 (5) Lupus anticoagulant positive Current Visit: No Status: Chronic Priority: Medium Code(s): R76.0 - RAISED ANTIBODY TITER SNOMED Code(s): 51673227 (6) Thoracic lymphadenopathy Current Visit: No Status: Chronic Priority: Medium Code(s): R59.0 - LOCALIZED ENLARGED LYMPH NODES SNOMED Code(s): 902502601 Plan: Assessment and Recommendations: CLL: - As far as CLL his WBC and adenopathy appears stable - He can follow up with Dr. Chen as scheduled as outpatient - Check for tumor lysis given increased calcium, renal function Acute on Chronic Respiratory Failure: - Requiring 3-5L oxygen to maintain o2 greater than 90% - CTA negative - Pulmonary is following Microcytic Anemia: - Evidence of anemia present and microcytosis - Repeat Iron Studies, hemolysis labs - Likely component of blood loss anemia from recent GI blood loss admission while on anticoagualtions for COVID infection. Increased Renal Function: - Likely pre-renal dehydration - Approved after hydration Have set up for Parental Iron in office GI to re-evaluate to confirm no active bleeding
--- NOTE | 2021-04-26 14:20 | P.PN ---
Subjective Progress Note Date: 04/26/21 Principal diagnosis: COPD exacerbation 60-year-old male, who looks much older than his stated age, who has a history of chronic lymphocytic leukemia and COPD. The patient arrives in the emergency room on April 24 at 1734. His complaint was that of increasing shortness of breath with any activity. In addition, he does have cough and chest tightness, as well as wheezing. He is coughing up phlegm. He does have an established history of COPD and apparently used to see a stogy maker at [facility]. Apparently he is not seen anybody recently. The patient was not receiving any IV fluids. He is on 3 L nasal cannula. He states he does not use oxygen at home. His primary care physician is Dr. Masters in [facility]. The patient states that he did have coronavirus infection and October 2020. It should be noted that even though the patient does not smoke currently, he has smoked for 43 straight years. White count 17.8, hemoglobin 10.6, hematocrit 33.9, and platelet count 387,000. PTT 27.6 INR 2.9 PTT is 40.2 and d-dimer is 16.30. Sodium 137, potassium 4.3, chlorides 106, CO2 21, anion gap 10, BUN 16, creatinine 1.44. Chest x-ray shows changes of COPD. Computed tomography scan shows no evidence of pulmonary embolism, changes of COPD, and significant thoracic adenopathy and splenomegaly, consistent with his known history of chronic leukocytic leukemia, unchanged. The patient is seen today 04/26/2021 in follow-up on the regular medical floor. He is currently sitting up at the bedside. Awake and alert in no acute distress. Breathing quite a bit easier today compared to yesterday. He is maintaining good O2 saturations in the mid 90s on room air. He's been afebrile. Hemodynamically stable. White count 37.2. Hemoglobin 8.4. Sodium 140. Potassium 4.6. Creatinine 1.3. He is continued on DuoNeb inhalations, Symbicort, IV Solu-Medrol. Antibiotics in the form of azithromycin. Objective - Vital Signs Vital signs: Vital Signs Temp 97.7 F 04/26/21 07:56 Pulse 96 04/26/21 10:42 Resp 18 04/26/21 11:14 BP 125/63 04/26/21 07:56 Pulse Ox 94 L 04/26/21 11:14 Intake & Output 04/25/21 04/26/21 04/26/21 18:59 06:59 18:59 Intake Total 600 Balance 600 Weight 61.235 kg Intake: Intake, IV Titration 600 Amount Sodium Chloride 0.9% 1, 600 000 ml @ 100 mls/hr IV . Q10H STA Rx#:[id number] Other: Voiding Method Toilet Toilet # Voids 2 - Exam GENERAL EXAM: Alert, pleasant 60-year-old gentleman, on room air, comfortable in no apparent distress. HEAD: Normocephalic. EYES: Normal reaction of pupils, equal size. NOSE: Clear with pink turbinates. THROAT: No erythema or exudates. NECK: No masses, no JVD. CHEST: No chest wall deformity. LUNGS: Equal air entry with end expiratory wheeze, few scattered rhonchi. CVS: S1 and S2 normal with no audible murmur, regular rhythm. ABDOMEN: No hepatosplenomegaly, normal bowel sounds, no guarding or rigidity. SPINE: No scoliosis or deformity SKIN: No rashes CENTRAL NERVOUS SYSTEM: No focal deficits, tone is normal in all 4 extremities. EXTREMITIES: There is no peripheral edema. No clubbing, no cyanosis. Peripheral pulses are intact. - Labs CBC & Chem 7: 04/26/21 07:10 04/26/21 07:10 Labs: Abnormal Lab Results - Last 24 Hours (Table) 04/25/21 04/25/21 04/25/21 Range/Units 09:24 09:24 09:24 WBC (4.50-10.00) X 10*3/uL RBC (4.40-5.60) X 10*6/uL Hgb (13.0-17.0) g/dL Hct (39.6-50.0) % MCV (80.0-97.0) fL MCH (27.0-32.0) pg MCHC (32.0-37.0) g/dL RDW (11.5-14.5) % MPV (9.5-12.2) fL Absolute Nucleated RBC (0.00-0.00) X 10*3/uL Neutrophils # (Manual) (2.00-8.90) X 10*3/uL Lymphocytes # 21.0 H (1.0-4.8) k/uL Lymphocytes # (Manual) 22.88 H (1.0-4.8) k/uL Eosinophils # (Manual) (0.04-0.35) X 10*3/uL NRBC/100 WBC Diff (0.0-0.0) /100 WBCS Haptoglobin 210.0 H (31.2-198.0) mg/dL Chloride (96-109) mmol/L Est GFR (CKD-EPI)NonAf (60.0-200.0) Glucose (70-110) mg/dL POC Glucose (mg/dL) (75-99) mg/dL Iron 24 L (65-175) ug/dL % Saturation 9.80 L (15.00-50.00) Total Protein (6.2-8.2) g/dL Albumin (3.80-4.90) g/dL Albumin/Globulin Ratio (1.60-3.17) g/dL 04/25/21 04/25/21 04/26/21 Range/Units 17:25 20:30 07:01 WBC (4.50-10.00) X 10*3/uL RBC (4.40-5.60) X 10*6/uL Hgb (13.0-17.0) g/dL Hct (39.6-50.0) % MCV (80.0-97.0) fL MCH (27.0-32.0) pg MCHC (32.0-37.0) g/dL RDW (11.5-14.5) % MPV (9.5-12.2) fL Absolute Nucleated RBC (0.00-0.00) X 10*3/uL Neutrophils # (Manual) (2.00-8.90) X 10*3/uL Lymphocytes # (1.0-4.8) k/uL Lymphocytes # (Manual) (1.0-4.8) k/uL Eosinophils # (Manual) (0.04-0.35) X 10*3/uL NRBC/100 WBC Diff (0.0-0.0) /100 WBCS Haptoglobin (31.2-198.0) mg/dL Chloride (96-109) mmol/L Est GFR (CKD-EPI)NonAf (60.0-200.0) Glucose (70-110) mg/dL POC Glucose (mg/dL) 215 H 188 H 163 H (75-99) mg/dL Iron (65-175) ug/dL % Saturation (15.00-50.00) Total Protein (6.2-8.2) g/dL Albumin (3.80-4.90) g/dL Albumin/Globulin Ratio (1.60-3.17) g/dL 04/26/21 04/26/21 04/26/21 Range/Units 07:10 07:10 12:00 WBC 37.28 H (4.50-10.00) X 10*3/uL RBC 3.88 L (4.40-5.60) X 10*6/uL Hgb 8.4 L (13.0-17.0) g/dL Hct 30.6 L (39.6-50.0) % MCV 78.9 L (80.0-97.0) fL MCH 21.6 L (27.0-32.0) pg MCHC 27.5 L (32.0-37.0) g/dL RDW 21.0 H (11.5-14.5) % MPV 8.2 L (9.5-12.2) fL Absolute Nucleated RBC 0.04 H (0.00-0.00) X 10*3/uL Neutrophils # (Manual) 10.07 H (2.00-8.90) X 10*3/uL Lymphocytes # (1.0-4.8) k/uL Lymphocytes # (Manual) 26.84 H (1.0-4.8) k/uL Eosinophils # (Manual) 0 L (0.04-0.35) X 10*3/uL NRBC/100 WBC Diff 0.1 H (0.0-0.0) /100 WBCS Haptoglobin (31.2-198.0) mg/dL Chloride 110 H (96-109) mmol/L Est GFR (CKD-EPI)NonAf 58.5 L (60.0-200.0) Glucose 157 H (70-110) mg/dL POC Glucose (mg/dL) 202 H (75-99) mg/dL Iron (65-175) ug/dL % Saturation (15.00-50.00) Total Protein 6.0 L (6.2-8.2) g/dL Albumin 3.50 L (3.80-4.90) g/dL Albumin/Globulin Ratio 1.40 L (1.60-3.17) g/dL Assessment and Plan Assessment: Acute COPD exacerbation, likely complicated by purulent tracheobronchitis, without pasha pneumonia. Chronic lymphocytic leukemia. Prior history of heavy tobacco use. History of pleural effusion. Prior history of coronavirus infection, October 2020. History of anxiety/depression. Plan: The patient was seen and evaluated by Dr. Velazquez He is cleared for discharge from the pulmonary standpoint Complete a prednisone taper starting at 40 mg daily for 4 days Complete a course of antibiotics Follow-up closely with his PCP, oncology, stogy maker I, the cosigning physician, performed a history & physical examination of the patient. Lungs sounds faint end expiratory wheeze, few scattered rhonchi. Main taining good O2 saturations in the 90s on room air. I discussed the assessment and plan of care with my nurse practitioner, Elif Regalado. I attest to the above note as dictated by her.
[2021-04-26] MEDS ORDERED: methylPREDNISolone SOD SUCCI 125 MG/2 ML VIAL IV SCH (21:00)
== END 2021-04-26 14:13 | disposition home or self-care (01) ==
LOC: EC 17:34 → 6NMEDSUR 22:34 → OBSVTOIN 04-25 11:09 → INTOOBSV 04-25 11:09 → 4SSUR 04-25 16:22 → UNDODISIN 04-26 14:13
PROVIDERS: ADMIT Internal Medicine; ATTEND Internal Medicine
DX: J43.9 Emphysema, unspecified (principal); J96.21 Acute and chronic respiratory failure with hypoxia; D50.9 Iron deficiency anemia, unspecified; N17.9 Acute kidney failure, unspecified; C91.10 Chronic lymphocytic leukemia of B-cell type not having achieved remission; R79.89 Other specified abnormal findings of blood chemistry; F41.9 Anxiety disorder, unspecified; R30.0 Dysuria; F32.9 Major depressive disorder, single episode, unspecified; Q93.9 Deletion from autosomes, unspecified; D68.62 Lupus anticoagulant syndrome; Z86.16 Personal history of COVID-19; Z87.01 Personal history of pneumonia (recurrent); Z20.822 Contact with and (suspected) exposure to COVID-19; Z87.891 Personal history of nicotine dependence; Z87.09 Personal history of other diseases of the respiratory system; Z87.19 Personal history of other diseases of the digestive system; Z79.899 Other long term (current) drug therapy; Z79.82 Long term (current) use of aspirin; Z88.0 Allergy status to penicillin; Z98.890 Other specified postprocedural states
CPT/HCPCS: 96376 ×3; 96361 ×3; 96372 ×3; 96365 ×2; 96375; 99285; 36415; 94640 ×5; 93005; 85379; 80053 ×3; 85652; 82728; 83540; 83550; 83605; 83615; 83735 ×2; 84100; 84550; 84484; 85025 ×3; 85610; 85045; 85730; 82784; 83010; 87635; 71046; 71275; G0378 ×4; J2930 ×3; J0456; J2916; Q9967; J1644 ×2

== ENCOUNTER 2021-05-04 14:44 | Observation (INO) | payer BC, OTHER ==
[2021-05-04 16:23] LABS: Anisocytosis Slight; HCT 32.8 % (39.0-53.0); HGB 10.1 gm/dL (13.0-17.5); Hypochromasia Moderate; MCH 23.7 pg (25.0-35.0); MCHC 30.9 g/dL (31.0-37.0); MCV 76.9 fL (80.0-100.0); Mean Platelet Volume 6.6; Microcytosis Moderate; Platelet Count 471 k/uL (150-450); Poikilocytosis Slight; RBC 4.26 m/uL (4.30-5.90); WBC 28.4 k/uL (3.8-10.6)
[2021-05-04 16:28] LABS: Albumin 3.2 g/dL (3.5-5.0); Calcium 8.9 mg/dL (8.4-10.2); Potassium 4.2 mmol/L (3.5-5.1); Total Bilirubin 1.1 mg/dL (0.2-1.3); Total Protein 5.5 g/dL (6.3-8.2)
[2021-05-04 16:37] LABS: RBC,Urine >182 /hpf (0-5); WBC,Urine >182 /hpf (0-5)
[2021-05-04 16:39] LABS: Color,Urine Red
[2021-05-04 17:25] LABS: Lymphocytes # (M) 20.16 k/uL (1.0-4.8); Neutrophils # (M) 7.67 k/uL (1.3-7.7); Neutrophils % (M) 27 %
[2021-05-04 17:26] LABS: Anisocytosis (M) Present; Monocytes # (M) 0.57 k/uL (0-1.0); Nucleated Red Blood Cells 0 /100 WBC (0-0); Poikilocytosis (M) Present; Tear Drop Cells Present; Total Cells Counted 100
--- NOTE | 2021-05-04 17:56 | ED ---
General Adult HPI - General Source: patient, RN notes reviewed Mode of arrival: ambulatory Limitations: no limitations - History of Present Illness -: days(s) (3) Severity scale (1-10): 0 Quality: burning Associated Symptoms: other (Hematuria) Treatments Prior to Arrival: none <Brooks Manuel - Last Filed: 05/04/21 19:33> <WinstonPedro Pablo - Last Filed: 05/04/21 21:34> - General Chief complaint: Urogenital Stated complaint: Blood in urine - History of Present Illness Initial comments: 60-year-old white male, alert and oriented 4, presents to the emergency room with complaints of hematuria that started on Saturday. Patient states that he felt some burning with urination and noticed some cloudiness at that time and then he started to have hematuria for the past 2 days. Patient states that today he had difficulty starting his stream and it was pasha red blood with clots. He denies any pain or any fevers. He states that this is never happened to him before. No history of kidney stones. He does have a history of CLL with WBC counts up to 50. He is a former smoker, quit 4 years ago. (Brooks Manuel) - Related Data Home Medications Medication Instructions Recorded Confirmed Albuterol Sulfate [Proair Hfa] 2 puff INHALATION RT-QID PRN 09/23/20 05/04/21 Calcium Carbonate [Tums] 1,000 mg PO TID PRN 09/23/20 05/04/21 Cyclobenzaprine [Flexeril] 10 mg PO HS 09/23/20 05/04/21 Ferrous Sulfate [Iron (65 MG 325 mg PO DAILY 09/23/20 05/04/21 Elemental)] Fluticasone/Salmeterol [Advair 1 puff INHALATION RT-BID 09/23/20 05/04/21 250-50 Diskus] Omeprazole 40 mg PO DAILY 09/23/20 05/04/21 PARoxetine [Paxil] 20 mg PO DAILY 09/23/20 05/04/21 Tiotropium Vancleve [Spiriva] 1 cap INHALATION RT-DAILY 09/23/20 05/04/21 Ascorbic Acid [Vitamin C] 1,000 mg PO DAILY 04/24/21 05/04/21 Cyanocobalamin (Vitamin B-12) 1,000 mcg PO DAILY 04/24/21 05/04/21 [Vitamin B-12] Diclofenac Sodium Gel [Voltaren 1 applic TOPICAL QID PRN 04/24/21 05/04/21 Gel] Glucosam/Reynold-Msm1/C/Lorenzo/Bosw 2 tab PO DAILY 04/24/21 05/04/21 [Glucosamine-Chondroitin Tablet] Inulin/Chromium Picolinate [Fiber 1 tab PO DAILY 04/24/21 05/04/21 Gummies Chew] Multivitamins, Thera [Multivitamin 1 tab PO DAILY 04/24/21 05/04/21 (formulary)] Previous Rx's Medication Instructions Recorded Aspirin 325 mg PO DAILY #30 tab 09/27/20 Cholecalciferol [Vitamin D3 (25 25 mcg PO DAILY #30 tablet 10/27/20 Mcg = 1000 Iu)] Allergies Allergy/AdvReac Type Severity Reaction Status Date / Time Penicillins Allergy Unknown Verified 05/04/21 19:14 Childhood Review of Systems ROS Other: All systems not noted in ROS Statement are negative. <Brooks Manuel - Last Filed: 05/04/21 19:33> ROS Other: All systems not noted in ROS Statement are negative. <Pedro Pablo Winston - Last Filed: 05/04/21 21:34> ROS Statement: Those systems with pertinent positive or pertinent negative responses have been documented in the HPI. Past Medical History Past Medical History: Cancer Additional Past Medical History / Comment(s): Chronic lymphocytic leukemia, emphysema, plueral effusion 09/23/2020, covid 10/2020 History of Any Multi-Drug Resistant Organisms: None Reported Past Surgical History: Appendectomy Past Anesthesia/Blood Transfusion Reactions: No Reported Reaction Past Psychological History: Anxiety, Depression Smoking Status: Former smoker Past Alcohol Use History: None Reported Past Drug Use History: Marijuana - Past Family History Family Family Medical History: No Reported History <Brooks Manuel - Last Filed: 05/04/21 19:33> General Exam Limitations: no limitations General appearance: alert, in no apparent distress Head exam: Present: atraumatic, normocephalic, normal inspection Eye exam: Present: normal appearance, PERRL, EOMI. Absent: scleral icterus, conjunctival injection, periorbital swelling ENT exam: Present: normal exam, normal oropharynx, mucous membranes moist Neck exam: Present: normal inspection. Absent: tenderness, meningismus, lymphadenopathy Respiratory exam: Present: normal lung sounds bilaterally. Absent: respiratory distress, wheezes, rales, rhonchi, stridor, chest wall tenderness, accessory muscle use, decreased breath sounds Cardiovascular Exam: Present: tachycardia. Absent: JVD GI/Abdominal exam: Present: soft, normal bowel sounds. Absent: distended, tenderness, guarding, rebound, rigid Extremities exam: Present: normal inspection, full ROM, normal capillary refill. Absent: tenderness, pedal edema, joint swelling, calf tenderness Back exam: Present: normal inspection, full ROM. Absent: tenderness, CVA tenderness (R), CVA tenderness (L), muscle spasm, paraspinal tenderness, vertebral tenderness, rash noted Neurological exam: Present: alert, oriented X3, CN II-XII intact Psychiatric exam: Present: normal affect, normal mood Skin exam: Present: warm, dry, intact, normal color, abrasion (Bilateral lower extremity). Absent: rash <Brooks Manuel - Last Filed: 05/04/21 19:33> Course Vital Signs 05/04/21 05/04/21 15:17 20:26 Temperature 98.6 F 98.2 F Pulse Rate 101 H 83 Respiratory 18 20 Rate Blood Pressure 110/71 111/64 O2 Sat by Pulse 98 97 Oximetry Medical Decision Making - Lab Data Result diagrams: 05/04/21 16:09 05/04/21 16:09 <Brooks Manuel - Last Filed: 05/04/21 19:33> - Lab Data Result diagrams: 05/04/21 16:09 05/04/21 16:09 <Pedro Pablo Winston - Last Filed: 05/04/21 21:34> - Medical Decision Making WBC count is 28.4 patient has a history of CLL. His hemoglobin and hematocrit is 10.1 and 32.8 respectively. UA shows greater than 182 WBCs and RBCs. Ultrasound of the kidneys and bladder shows a mild left sided hydronephrosis. There is a solid lesion measuring 1.6 x 1.3 x 1.1 cm the lower pole of the right kidney. As recommended to have CT. There is also evidence of multiple debris within the urinary bladder presumably hemorrhagic clots. Case was discussed with Dr. Winston. A CT abdomen and pelvis with contrast was ordered. (Brooks Manuel) Computed tomography scan of the abdomen shows possible hemorrhoids and an extra renal area by the left kidney. Patient's collecting system on the left also is mildly dilated. Patient has some adenopathy from inguinal area in the iliacs up into the aortic region. I spoke with Dr. Carlene nixon the urologist he wanted the patient admitted he will follow-up the patient tomorrow. I spoke with some physicians Dr. Downs and he agrees to admit the patient I wrote admitting orders. I will keep the patient on antibiotics. (Pedro Pablo Winston) - Lab Data Lab Results 05/04/21 05/04/21 05/04/21 Range/Units 16:09 16:09 16:09 WBC 28.4 H (3.8-10.6) k/uL RBC 4.26 L (4.30-5.90) m/uL Hgb 10.1 L (13.0-17.5) gm/dL Hct 32.8 L (39.0-53.0) % MCV 76.9 L (80.0-100.0) fL MCH 23.7 L (25.0-35.0) pg MCHC 30.9 L (31.0-37.0) g/dL RDW 20.0 H (11.5-15.5) % Plt Count 471 H (150-450) k/uL MPV 6.6 Neutrophils % Not Reportable Neutrophils % (Manual) 27 % Lymphocytes % Not Reportable Lymphocytes % (Manual) 71 % Monocytes % Not Reportable Monocytes % (Manual) 2 % Eosinophils % Not Reportable Basophils % Not Reportable Neutrophils # Not Reportable Neutrophils # (Manual) 7.67 (1.3-7.7) k/uL Lymphocytes # Not Reportable Lymphocytes # (Manual) 20.16 H (1.0-4.8) k/uL Monocytes # Not Reportable Monocytes # (Manual) 0.57 (0-1.0) k/uL Eosinophils # Not Reportable Basophils # Not Reportable Nucleated RBCs 0 (0-0) /100 WBC Manual Slide Review Performed Hypochromasia Moderate Poikilocytosis Slight Poikilocytosis (manual Present Anisocytosis Slight Anisocytosis (manual) Present Microcytosis Moderate Tear Drop Cells Present PT (9.0-12.0) sec INR (<1.2) Sodium 130 L (137-145) mmol/L Potassium 4.2 (3.5-5.1) mmol/L Chloride 98 (98-107) mmol/L Carbon Dioxide 27 (22-30) mmol/L Anion Gap 5 mmol/L BUN 19 (9-20) mg/dL Creatinine 1.21 (0.66-1.25) mg/dL Est GFR (CKD-EPI)AfAm 74 (>60 ml/min/1.73 sqM) Est GFR (CKD-EPI)NonAf 64 (>60 ml/min/1.73 sqM) Glucose 100 H (74-99) mg/dL Calcium 8.9 (8.4-10.2) mg/dL Total Bilirubin 1.1 (0.2-1.3) mg/dL AST 19 (17-59) U/L ALT 10 (4-49) U/L Alkaline Phosphatase 75 (38-126) U/L Total Protein 5.5 L (6.3-8.2) g/dL Albumin 3.2 L (3.5-5.0) g/dL Urine Color Red Urine RBC >182 H (0-5) /hpf Urine WBC >182 H (0-5) /hpf 05/04/21 Range/Units 19:33 WBC (3.8-10.6) k/uL RBC (4.30-5.90) m/uL Hgb (13.0-17.5) gm/dL Hct (39.0-53.0) % MCV (80.0-100.0) fL MCH (25.0-35.0) pg MCHC (31.0-37.0) g/dL RDW (11.5-15.5) % Plt Count (150-450) k/uL MPV Neutrophils % Neutrophils % (Manual) % Lymphocytes % Lymphocytes % (Manual) % Monocytes % Monocytes % (Manual) % Eosinophils % Basophils % Neutrophils # Neutrophils # (Manual) (1.3-7.7) k/uL Lymphocytes # Lymphocytes # (Manual) (1.0-4.8) k/uL Monocytes # Monocytes # (Manual) (0-1.0) k/uL Eosinophils # Basophils # Nucleated RBCs (0-0) /100 WBC Manual Slide Review Hypochromasia Poikilocytosis Poikilocytosis (manual Anisocytosis Anisocytosis (manual) Microcytosis Tear Drop Cells PT 26.3 H (9.0-12.0) sec INR 2.7 H (<1.2) Sodium (137-145) mmol/L Potassium (3.5-5.1) mmol/L Chloride (98-107) mmol/L Carbon Dioxide (22-30) mmol/L Anion Gap mmol/L BUN (9-20) mg/dL Creatinine (0.66-1.25) mg/dL Est GFR (CKD-EPI)AfAm (>60 ml/min/1.73 sqM) Est GFR (CKD-EPI)NonAf (>60 ml/min/1.73 sqM) Glucose (74-99) mg/dL Calcium (8.4-10.2) mg/dL Total Bilirubin (0.2-1.3) mg/dL AST (17-59) U/L ALT (4-49) U/L Alkaline Phosphatase (38-126) U/L Total Protein (6.3-8.2) g/dL Albumin (3.5-5.0) g/dL Urine Color Urine RBC (0-5) /hpf Urine WBC (0-5) /hpf Disposition <Brooks Manuel - Last Filed: 05/04/21 19:33> Time of Disposition: 21:34 <Pedro Pablo Winston - Last Filed: 05/04/21 21:34> Clinical Impression: Hematuria, Renal hemorrhage, left Disposition: ADMITTED IP TO THIS HOSP Referrals: Mikhail Masters MD [Primary Care Provider] - 1-2 days
--- NOTE | 2021-05-04 19:04 | US ---
EXAMINATION TYPE: US kidneys/renal and bladder DATE OF EXAM: 05/04/2021 COMPARISON: Subdiaphragmatic images from CT chest 04/24/[address] chest 10/26/2020 CLINICAL HISTORY: hematuria. patient states passing clots while urinating. Leukemia. EXAM MEASUREMENTS: Right Kidney: 11.3 x 4.2 x 3.7 cm Left Kidney: 9.5 x 5.1 x 4.2 cm Right Kidney: Lower pole lateral solid lesion =1.6 x 1.3 x 1.1 cm Left Kidney: Mild hydronephrosis with possible debris. Appears smaller in size compared to contralat eral kidney. Bladder: Thickened wall. Internal debris seen. Possible clot vs tissue vs lesion seen left posterior bladder = 2.6 x 2.1 x 2.2 cm Bilateral Jets not seen Incidental finding: Enlarged spleen = 19.1 cm IMPRESSION: 1. Mild left-sided hydronephrosis. 2. Evident lower pole solid lesion measuring 1.6 x 1.3 x 1.1 cm. This can be best evaluated with ded icated CT or MRI-abdomen/renal protocol. 3. Echogenic mobile debris within urinary bladder, presumably hemorrhagic clots; cystoscopy can add specificity if indicated. 4. Redemonstrated prominent splenomegaly.
[2021-05-04 20:18] LABS: INR 2.7 (<1.2); Prothrombin Time 26.3 sec (9.0-12.0)
--- NOTE | 2021-05-04 20:57 | CT ---
EXAMINATION TYPE: CT abdomen pelvis w con DATE OF EXAM: 05/04/2021 COMPARISON: Ultrasound 05/04/2021 HISTORY: RT kidney lesion, hematuria CT DLP: 714 mGycm Automated exposure control for dose reduction was used. TECHNIQUE: Helical acquisition of images was performed from the lung bases through the pelvis. CONTRAST: Performed without Oral Contrast and with IV Contrast, patient injected with 100 mL of Isovu e 300. FINDINGS: LUNG BASES: No significant abnormality is appreciated. LIVER/GB: There is no hepatomegaly. No significant abnormality is appreciated. PANCREAS: No significant abnormality is seen. SPLEEN: The spleen measures 18 x 16 x 7 cm. No focal splenic lesions. ADRENALS: No significant abnormality is seen. KIDNEYS: Arising laterally off the lower pole right kidney is the ill-defined approximately 1.5 cm in diameter focus seen at ultrasound. This focus demonstrates ill-defined margins and appears to be ext rarenal. It may represent a focal hemorrhage or peritoneal stud. Follow-up imaging studies will be ab le to further characterize. On the left, mild distention of the collecting system is noted. PERITONEAL CAVITY: No pneumoperitoneum. ADENOPATHY: Bilateral inguinal, external iliac, common iliac, and aortocaval moderate adenopathy note d - up to the level of the renal veins. REPRODUCTIVE ORGANS: No significant abnormality is seen URINARY BLADDER: There is moderate urinary bladder distention. OSSEOUS STRUCTURES: No significant abnormality is seen. BOWEL: No significant abnormality is seen. OTHER: No acute vascular findings. IMPRESSION: 1. Urinary bladder distention with moderate adenopathy in the bilateral inguinal, external iliac, co mmon iliac, and aortocaval positions, up the level of the renal veins. 2. Moderate/marked splenomegaly.
[2021-05-04] MEDS ORDERED: SODIUM CHLORIDE 0.9% 1,000 ML IV ONE (21:34)
[2021-05-04] MEDS ORDERED: cefTRIAXone IN SWFI 1,000 MG/10 ML SYRINGE IVP STA (21:37)
[2021-05-05] MEDS ORDERED: ALBUTEROL NEBULIZED 2.5 MG/3 ML INHALATION PRN (02:13)
--- NOTE | 2021-05-05 02:26 | P.HPIM ---
History of Present Illness H&P Date: 05/04/21 Chief Complaint: Hematuria 60-year-old male with CLL not currently on treatment, lupus anticoagulant, chronic anemia, COPD Patient comes in due to 2 day history of pasha hematuria pretty much denies any fevers or chills or pain however he does get some discomfort when he is unable to initiate urine which he believes is due to blood clots forming into his urinary bladder which has affected his urinary stream. He denies being on any blood thinners he denies any history of hematuria or kidney stones. He denies any denies or vomiting or back pain he denies any recent trauma. He went to an urgent care today before going to work he was told to go to the ER. Patient was recently hospitalized for COPD exacerbation. Patient also recalls Covid infection back in October he was discharged on blood thinners and presents to the hospital with GI bleeding in November of this year. Other than that he denies any history of bleeding Patient denies any recent changes in his medications. He denies being on any blood thinners. He does take daily aspirin In the ED ultrasound of the abdomen was done showed possible debris in his urinary bladder along with left mild hydronephrosis and possible solid lesion around his right kidney this was confirmed with computed tomography scan of the abdomen and pelvis which showed 1.61.31.1 cm mass however it was thought to be extrarenal with possible hemorrhage. Blood work showed chronic anemia with microcytosis, elevated white blood count with history of CLL with lymphocytosis. Elevated INR of 2.7. Low sodium of 130 During my interview with the patient he had to go to the bathroom upon coming back he said urine was flowing fine and it was only showing slight pinkish discoloration he did not notice any clots or any pasha hematuria he felt properly relieved after urinating with no residual discomfort denies any associ ated dysuria Review of Systems Pertinent positives as noted in HPI. All other systems were reviewed and are negative Past Medical History Past Medical History: Cancer, COPD Additional Past Medical History / Comment(s): Chronic lymphocytic leukemia, emphysema, plueral effusion 09/23/2020, covid 10/2020, lupus anticoagulant History of Any Multi-Drug Resistant Organisms: None Reported Past Surgical History: Appendectomy Past Anesthesia/Blood Transfusion Reactions: No Reported Reaction Past Psychological History: Anxiety, Depression Smoking Status: Former smoker Past Alcohol Use History: None Reported Past Drug Use History: Marijuana - Past Family History Family Family Medical History: No Reported History Medications and Allergies Home Medications Medication Instructions Recorded Confirmed Type Albuterol Sulfate [Proair Hfa] 2 puff INHALATION RT-QID PRN 09/23/20 05/04/21 History Calcium Carbonate [Tums] 1,000 mg PO TID PRN 09/23/20 05/04/21 History Cyclobenzaprine [Flexeril] 10 mg PO HS 09/23/20 05/04/21 History Ferrous Sulfate [Iron (65 MG 325 mg PO DAILY 09/23/20 05/04/21 History Elemental)] Fluticasone/Salmeterol [Advair 1 puff INHALATION RT-BID 09/23/20 05/04/21 History 250-50 Diskus] Omeprazole 40 mg PO DAILY 09/23/20 05/04/21 History PARoxetine [Paxil] 20 mg PO DAILY 09/23/20 05/04/21 History Tiotropium [place] [Spiriva] 1 cap INHALATION RT-DAILY 09/23/20 05/04/21 History Aspirin 325 mg PO DAILY #30 tab 09/27/20 05/04/21 Rx Cholecalciferol [Vitamin D3 (25 25 mcg PO DAILY #30 tablet 10/27/20 05/04/21 Rx Mcg = 1000 Iu)] Ascorbic Acid [Vitamin C] 1,000 mg PO DAILY 04/24/21 05/04/21 History Cyanocobalamin (Vitamin B-12) 1,000 mcg PO DAILY 04/24/21 05/04/21 History [Vitamin B-12] Diclofenac Sodium Gel [Voltaren 1 applic TOPICAL QID PRN 04/24/21 05/04/21 History Gel] Glucosam/Reynold-Msm1/C/Lorenzo/Bosw 2 tab PO DAILY 04/24/21 05/04/21 History [Glucosamine-Chondroitin Tablet] Inulin/Chromium Picolinate [Fiber 1 tab PO DAILY 04/24/21 05/04/21 History Gummies Chew] Multivitamins, Thera [Multivitamin 1 tab PO DAILY 04/24/21 05/04/21 History (formulary)] Allergies Allergy/AdvReac Type Severity Reaction Status Date / Time Penicillins Allergy Unknown Verified 05/04/21 19:14 Childhood Physical Exam Vitals: Vital Signs Temp Pulse Resp BP Pulse Ox 05/05/21 02:00 88 20 111/59 96 05/04/21 22:20 84 20 103/68 97 05/04/21 20:26 98.2 F 83 20 111/64 97 05/04/21 15:17 98.6 F 101 H 18 110/71 98 Intake and Output 05/04/21 05/04/21 05/05/21 14:59 22:59 06:59 Other: Weight 61.235 kg Constitutional: No acute distress, conversant, pleasant Eyes: Anicteric sclerae, moist conjunctiva, Pupils equal round reactive to light ENMT: NC/AT Oropharynx clear, no erythema, or exudates Neck: Supple, FROM, no masses, or JVD No carotid bruits No thyromegaly Lungs: Clear to auscultation Clear to percussion Normal respiratory effort, no accessory muscle use Cardiovascular: Heart regular in rate and rhythm, No murmurs, gallops, or rubs No peripheral edema Abdominal: Soft, slight discomfort to deep suprapubic palpation, no tenderness to percussion over the costovertebral angles bilaterally Nontender, no guarding, rebound or rigidity Abdomen moving with respiration Normoactive bowel sounds No hepatomegaly, spleen is palpable 3 fingers below costal margin No palpable mass No abdominal wall hernia noted Skin: Normal temperature, tone, texture, turgor No induration No subcutaneous nodules No rash, lesions No ulcers Extremities: No digital cyanosis No clubbing Pedal pulses intact and symmetrical Radial pulses intact and symmetrical No calf tenderness Psychiatric: Alert and oriented to person, place and time Appropriate affect fair judgement Neuro Muscles Strength 5/5 in all 4 extremities Sensation to light touch grossly present throughout Cranial nerves II-XII grossly intact No focal sensory deficits Lymphatics: no palpable cervical or supraclavicular lymph nodes , positive inguinal lymph nodes Results CBC & Chem 7: 05/04/21 16:09 05/04/21 16:09 Labs: Abnormal Lab Results - Last 24 Hours (Table) 05/04/21 05/04/21 05/04/21 Range/Units 16:09 16:09 16:09 WBC 28.4 H (3.8-10.6) k/uL RBC 4.26 L (4.30-5.90) m/uL Hgb 10.1 L (13.0-17.5) gm/dL Hct 32.8 L (39.0-53.0) % MCV 76.9 L (80.0-100.0) fL MCH 23.7 L (25.0-35.0) pg MCHC 30.9 L (31.0-37.0) g/dL RDW 20.0 H (11.5-15.5) % Plt Count 471 H (150-450) k/uL Lymphocytes # (Manual) 20.16 H (1.0-4.8) k/uL PT (9.0-12.0) sec INR (<1.2) Sodium 130 L (137-145) mmol/L Glucose 100 H (74-99) mg/dL Total Protein 5.5 L (6.3-8.2) g/dL Albumin 3.2 L (3.5-5.0) g/dL Urine RBC >182 H (0-5) /hpf Urine WBC >182 H (0-5) /hpf 05/04/21 Range/Units 19:33 WBC (3.8-10.6) k/uL RBC (4.30-5.90) m/uL Hgb (13.0-17.5) gm/dL Hct (39.0-53.0) % MCV (80.0-100.0) fL MCH (25.0-35.0) pg MCHC (31.0-37.0) g/dL RDW (11.5-15.5) % Plt Count (150-450) k/uL Lymphocytes # (Manual) (1.0-4.8) k/uL PT 26.3 H (9.0-12.0) sec INR 2.7 H (<1.2) Sodium (137-145) mmol/L Glucose (74-99) mg/dL Total Protein (6.3-8.2) g/dL Albumin (3.5-5.0) g/dL Urine RBC (0-5) /hpf Urine WBC (0-5) /hpf Assessment and Plan Assessment: Pasha hematuria Unknown underlying cause Patient was given 1 dose of antibiotic in the ED for possible UTI Computed tomography scan of the abdomen and pelvis, ultrasound of the abdomen both were reviewed Await urology recommendations and evaluation Continue to monitor urine output with postvoid bladder scan to assess for residual Monitor hemoglobin Hold aspirin Hyponatremia IV fluid hydration with normal saline Monitor sodium level Chronic conditions CLL not currently on treatment continue outpatient follow-up with oncology Lupus anticoagulant with hypercoagulability. Per hematology this creates a falls in vitro elevated coags and INR, resume aspirin once cleared by urology, utilize mechanical DVT prophylaxis for now until cleared by hematology then consider starting patient on pharmacologic DVT prophylaxis if patient stays in the hospital COPD currently compensated continue with home inhalers Chronic microcytic anemia continue with by mouth iron Preformed a thorough record review from recent hospitalization in October for Covid, in November for GI bleeding, earlier this month for acute COPD exacerbation CODE STATUS: Full code DVT prophylaxis: Mechanical Discussed with: Patient, ER, RN Anticipated length of stay less than [address]: Home A total of 70 minutes was spent on the care of this complex patient more than 50% of the time was spent in counseling and care coordination.
[2021-05-05] MEDS ORDERED: IPRATROPIUM 0.5 MG/2.5 ML NEBU INHALATION SCH (08:00)
[2021-05-05] MEDS ORDERED: SYMBICORT 80-4.5 MCG INHALER INHALATION SCH (08:00)
[2021-05-05] MEDS ORDERED: PARoxetine 20 MG TAB PO SCH (09:00)
[2021-05-05] MEDS ORDERED: FERROUS SULFATE 325 MG TAB PO SCH (09:00)
[2021-05-05] MEDS ORDERED: PANTOPRAZOLE 40 MG TABLET PO SCH (09:00)
[2021-05-05 09:19] VITALS: BP 109/66; PULSE 94; RESP 18; TEMP 97.9
[2021-05-05 09:38] LABS: Anisocytosis Slight; Calcium 8.9 mg/dL (8.4-10.2); HCT 30.1 % (39.0-53.0); HGB 9.5 gm/dL (13.0-17.5); Hypochromasia Marked; MCHC 31.4 g/dL (31.0-37.0); MCV 76.5 fL (80.0-100.0); Mean Platelet Volume 6.3; Microcytosis Moderate; Platelet Count 454 k/uL (150-450); Poikilocytosis Slight; RBC 3.94 m/uL (4.30-5.90); RDW 19.5 % (11.5-15.5); WBC 15.9 k/uL (3.8-10.6)
--- NOTE | 2021-05-05 13:25 | P.DS ---
Providers Date of admission: 05/04/21 21:35 Expected date of discharge: 05/05/21 Attending physician: Kathryn Downs MD Consults: 05/04/21 21:34 Consult Physician Urgent Consulting Provider: Jeff Adair Consult Reason/Comments: Renal hemorrhage, hematuria Do you want consulting provider notified?: Already Contacted Primary care physician: Mikhail Masters Hospital Course: Discharge Diagnosis: Hematuria, gorss Cystitis Bladder Abnormality on ultrasound Chornic anemia, stable CLL COPD without exacerbation Thrombocytosis Hospital Course: Patient is a 60-year-old male with a history of CLL, Lupus anticoagulant on ASA, COPD, and prior Covid along with pneumonia who initially presented with complai nts of heamturia. He had recently been admitted from 04/25-04/26 due to COPD exacerbation. US demonstrated cystitis and he was started on an antibiotic. He was seen by urology who recommended f/u in 4 weeks for cystoscopy. His hematuria resolved, his hemoglobin was stable. He was determined stable for discharge with close outpatient follow-up. Follow-up: Dr. Li in 4 weeks, Dr. Masters in 2 days, Dr. Azar in 2 weeks, take antibiotics as prescribed. Monitor urine. Repeat CBC with Dr. Masters office's in 3-[address] abd and pelvis- bladder distention with moderate adenopathy, marked spleno megally, mass appears to be extrarenal and is possible focal hemorrhage. Renal ultrasound- mild left hydro, lower pole lesion left kidney, echogenic material in the urinary bladder likely hemorrhagic clots, splenomegaly. Patient seen and examined at bedside. He reports that his heamturia is resolved. He deneis any pain. His breathing is at baseline. He was seen by Dr. Adair and is aware of the need for follow up for visualization of the bladder. Vital signs reviewed and stable. General: non toxic, no distress, appears at stated age Derm: warm, dry Head: atraumatic, normocephalic, symmetric Eyes: EOMI, no lid lag, anicteric sclera Mouth: no lip lesion, mucus membranes moist Cardiovascular: S1S2 reg, no murmur, positive posterior tibial pulse bilateral, Lungs: CTA bilateral, no rhonchi, no rales , no accessory muscle use Abdominal: soft, nontender to palpation, no guarding, no appreciable organomegaly Ext: no gross muscle atrophy, no edema, no contractures Neuro: CN II-XI grossly intact, no focal neuro deficits Psych: Alert, oriented, appropriate affect A total of 35 minutes of time were spent preparing this complex discharge summary . Patient Condition at Discharge: Stable Plan - Discharge Summary New Discharge Prescriptions: New Sulfamethox-Tmp 800-160Mg [Bactrim DS 800-160 mg] 1 tab PO Q12HR #6 tab Continue Calcium Carbonate [Tums] 1,000 mg PO TID PRN PRN Reason: Heartburn Tiotropium [place] [Spiriva] 1 cap INHALATION RT-DAILY PARoxetine [Paxil] 20 mg PO DAILY Albuterol Sulfate [Proair Hfa] 2 puff INHALATION RT-QID PRN PRN Reason: Shortness Of Breath Omeprazole 40 mg PO DAILY Fluticasone/Salmeterol [Advair 250-50 Diskus] 1 puff INHALATION RT-BID Ferrous Sulfate [Iron (65 MG Elemental)] 325 mg PO DAILY Cyclobenzaprine [Flexeril] 10 mg PO HS Aspirin 325 mg PO DAILY #30 tab Cholecalciferol [Vitamin D3 (25 Mcg = 1000 Iu)] 25 mcg PO DAILY #30 tablet Glucosam/Reynold-Msm1/C/Lorenzo/Bosw [Glucosamine-Chondroitin Tablet] 2 tab PO DAILY Cyanocobalamin (Vitamin B-12) [Vitamin B-12] 1,000 mcg PO DAILY Multivitamins, Thera [Multivitamin (formulary)] 1 tab PO DAILY Inulin/Chromium Picolinate [Fiber Gummies Chew] 1 tab PO DAILY Diclofenac Sodium Gel [Voltaren Gel] 1 applic TOPICAL QID PRN PRN Reason: Pain Ascorbic Acid [Vitamin C] 1,000 mg PO DAILY Discharge Medication List Albuterol Sulfate [Proair Hfa] 2 puff INHALATION RT-QID PRN 09/23/20 [History] Calcium Carbonate [Tums] 1,000 mg PO TID PRN 09/23/20 [History] Cyclobenzaprine [Flexeril] 10 mg PO HS 09/23/20 [History] Ferrous Sulfate [Iron (65 MG Elemental)] 325 mg PO DAILY 09/23/20 [History] Fluticasone/Salmeterol [Advair 250-50 Diskus] 1 puff INHALATION RT-BID 09/23/20 [History] Omeprazole 40 mg PO DAILY 09/23/20 [History] PARoxetine [Paxil] 20 mg PO DAILY 09/23/20 [History] Tiotropium [place] [Spiriva] 1 cap INHALATION RT-DAILY 09/23/20 [History] Aspirin 325 mg PO DAILY #30 tab 09/27/20 [Rx] Cholecalciferol [Vitamin D3 (25 Mcg = 1000 Iu)] 25 mcg PO DAILY #30 tablet 10/27/20 [Rx] Ascorbic Acid [Vitamin C] 1,000 mg PO DAILY 04/24/21 [History] Cyanocobalamin (Vitamin B-12) [Vitamin B-12] 1,000 mcg PO DAILY 04/24/21 [History] Diclofenac Sodium Gel [Voltaren Gel] 1 applic TOPICAL QID PRN 04/24/21 [History] Glucosam/Reynold-Msm1/C/Lorenzo/Bosw [Glucosamine-Chondroitin Tablet] 2 tab PO DAILY 04/24/21 [History] Inulin/Chromium Picolinate [Fiber Gummies Chew] 1 tab PO DAILY 04/24/21 [History] Multivitamins, Thera [Multivitamin (formulary)] 1 tab PO DAILY 04/24/21 [History] Sulfamethox-Tmp 800-160Mg [Bactrim DS 800-160 mg] 1 tab PO Q12HR #6 tab 05/05/21 [Rx] Follow up Appointment(s)/Referral(s): Mikhail Masters MD [Primary Care Provider] - 1-2 days Lance Azar MD [STAFF PHYSICIAN] - 2 Weeks Jeff Adair MD [STAFF PHYSICIAN] - 4 Weeks Activity/Diet/Wound Care/Special Instructions: Activity: as tolerated Diet: Heart healthy Special Instructions: Resume Aspirin on 05/07 Repeat blood count in 3-[address] Masters Discharge Disposition: HOME SELF-CARE
[2021-05-05 14:16] LABS: Band Neutrophils % 3 %; Eosinophils # (M) 0.32 k/uL (0-0.7); Lymphocytes # (M) 10.65 k/uL (1.0-4.8); Monocytes # (M) 0.32 k/uL (0-1.0); Neutrophils % (M) 26 %; Nucleated Red Blood Cells 0 /100 WBC (0-0); Total Cells Counted 100
--- NOTE | 2021-05-05 18:00 | P.GSCN ---
History of Present Illness Consult date: 05/05/21 Reason for Consult: Gross hematuria History of present illness: This is a 60-year-old male presents with gross hematuria, of sudden onset. Den ies any previous history of gross hematuria, he indicates his hematuria is associated with blood clots, and mild dysuria area denies any voiding difficulty. No previous history of gross hematuria. Denies any flank pain. He underwent a CT abdomen and pelvis demonstrated evidence 1.5 cm well-defined lesion inferior to the lower pole of the right kidney. CT also showed evidence of lymphadenopathy along the inguinal and iliac chain. Of note he has history of CLL currently not on any treatment. On evaluation today he indicated his hematuria has resolved, he is voiding without any issues. Review of Systems - Constitutional Denies fever, Denies weight loss - Cardiovascular Denies chest pain, Denies shortness of breath - Respiratory Denies cough, Denies 7 - Gastrointestinal Reports as per HPI - Genitourinary Reports hematuria - Integumentary Denies rash, Denies unusual bruising - Neurological Denies headaches, Denies syncope Past Medical History Past Medical History: Cancer, COPD Additional Past Medical History / Comment(s): Chronic lymphocytic leukemia, emphysema, plueral effusion 09/23/2020, covid 10/2020, lupus anticoagulant History of Any Multi-Drug Resistant Organisms: None Reported Past Surgical History: Appendectomy Past Anesthesia/Blood Transfusion Reactions: No Reported Reaction Past Psychological History: Anxiety, Depression Smoking Status: Former smoker Past Alcohol Use History: None Reported Past Drug Use History: Marijuana - Past Family History Family Family Medical History: No Reported History Medications and Allergies Home Medications Medication Instructions Recorded Confirmed Type Albuterol Sulfate [Proair Hfa] 2 puff INHALATION RT-QID PRN 09/23/20 05/04/21 History Calcium Carbonate [Tums] 1,000 mg PO TID PRN 09/23/20 05/04/21 History Cyclobenzaprine [Flexeril] 10 mg PO HS 09/23/20 05/04/21 History Ferrous Sulfate [Iron (65 MG 325 mg PO DAILY 09/23/20 05/04/21 History Elemental)] Fluticasone/Salmeterol [Advair 1 puff INHALATION RT-BID 09/23/20 05/04/21 History 250-50 Diskus] Omeprazole 40 mg PO DAILY 09/23/20 05/04/21 History PARoxetine [Paxil] 20 mg PO DAILY 09/23/20 05/04/21 History Tiotropium [place] [Spiriva] 1 cap INHALATION RT-DAILY 09/23/20 05/04/21 History Aspirin 325 mg PO DAILY #30 tab 09/27/20 05/04/21 Rx Cholecalciferol [Vitamin D3 (25 25 mcg PO DAILY #30 tablet 10/27/20 05/04/21 Rx Mcg = 1000 Iu)] Ascorbic Acid [Vitamin C] 1,000 mg PO DAILY 04/24/21 05/04/21 History Cyanocobalamin (Vitamin B-12) 1,000 mcg PO DAILY 04/24/21 05/04/21 History [Vitamin B-12] Diclofenac Sodium Gel [Voltaren 1 applic TOPICAL QID PRN 04/24/21 05/04/21 History Gel] Glucosam/Reynold-Msm1/C/Lorenzo/Bosw 2 tab PO DAILY 04/24/21 05/04/21 History [Glucosamine-Chondroitin Tablet] Inulin/Chromium Picolinate [Fiber 1 tab PO DAILY 04/24/21 05/04/21 History Gummies Chew] Multivitamins, Thera [Multivitamin 1 tab PO DAILY 04/24/21 05/04/21 History (formulary)] Sulfamethox-Tmp 800-160Mg [Bactrim 1 tab PO Q12HR #6 tab 05/05/21 Rx DS 800-160 mg] Allergies Allergy/AdvReac Type Severity Reaction Status Date / Time Penicillins Allergy Unknown Verified 05/04/21 19:14 Childhood Surgical - Exam Vital Signs Temp Pulse Resp BP Pulse Ox 98.6 F 101 H 18 110/71 98 05/04/21 15:17 05/04/21 15:17 05/04/21 15:17 05/04/21 15:17 05/04/21 15:17 - General well developed, well nourished, no distress, no pain - Eyes PERRL, normal ocular movement - ENT normal nares, normal mucosa - Respiratory normal expansion, normal respiratory effort - Abdomen Abdomen: soft, non tender - Psychiatric oriented to time, oriented to person, oriented to place, speech is normal Results - Labs 05/05/21 08:31 05/05/21 08:31 Abnormal Lab Results - Last 24 Hours (Table) 05/04/21 05/05/21 05/05/21 Range/Units 19:33 08:31 08:31 WBC 15.9 H (3.8-10.6) k/uL RBC 3.94 L (4.30-5.90) m/uL Hgb 9.5 L (13.0-17.5) gm/dL Hct 30.1 L (39.0-53.0) % MCV 76.5 L (80.0-100.0) fL MCH 24.0 L (25.0-35.0) pg RDW 19.5 H (11.5-15.5) % Plt Count 454 H (150-450) k/uL Lymphocytes # (Manual) 10.65 H (1.0-4.8) k/uL PT 26.3 H (9.0-12.0) sec INR 2.7 H (<1.2) Sodium 134 L (137-145) mmol/L Glucose 110 H (74-99) mg/dL Diabetes panel 05/05/21 Range/Units 08:31 Sodium 134 L (137-145) mmol/L Potassium 4.0 (3.5-5.1) mmol/L Chloride 101 (98-107) mmol/L Carbon Dioxide 27 (22-30) mmol/L BUN 18 (9-20) mg/dL Creatinine 1.20 (0.66-1.25) mg/dL Glucose 110 H (74-99) mg/dL Calcium 8.9 (8.4-10.2) mg/dL Calcium panel 05/05/21 Range/Units 08:31 Calcium 8.9 (8.4-10.2) mg/dL Pituitary panel 05/05/21 Range/Units 08:31 Sodium 134 L (137-145) mmol/L Potassium 4.0 (3.5-5.1) mmol/L Chloride 101 (98-107) mmol/L Carbon Dioxide 27 (22-30) mmol/L BUN 18 (9-20) mg/dL Creatinine 1.20 (0.66-1.25) mg/dL Glucose 110 H (74-99) mg/dL Calcium 8.9 (8.4-10.2) mg/dL Adrenal panel 05/05/21 Range/Units 08:31 Sodium 134 L (137-145) mmol/L Potassium 4.0 (3.5-5.1) mmol/L Chloride 101 (98-107) mmol/L Carbon Dioxide 27 (22-30) mmol/L BUN 18 (9-20) mg/dL Creatinine 1.20 (0.66-1.25) mg/dL Glucose 110 H (74-99) mg/dL Calcium 8.9 (8.4-10.2) mg/dL Assessment and Plan Assessment: 60-year-old male admitted to the hospital with gross hematuria, he UA showed a possible UTI. CT showed an ill-defined lesion, we will delay lower pole of the right kidney. I reviewed the images difficult to exclude an exophytic RCC. His hemoglobin is stable, his hematuria has resolved -Recommend discharging home with antibiotics -We will arrange for an outpatient CT urogram to better evaluate that renal lesion. He will also need an outpatient cystoscopy given his gross hematuria.
[2021-05-05] MEDS ORDERED: CYCLOBENZAPRINE 10 MG TAB PO SCH (21:00)
== END 2021-05-05 12:41 | disposition home or self-care (01) ==
LOC: EC 14:44 → 1SOBS 21:35 → 6NMEDSUR 05-05 05:08
PROVIDERS: ADMIT Internal Medicine; ATTEND Internal Medicine
DX: N30.01 Acute cystitis with hematuria (principal); D50.9 Iron deficiency anemia, unspecified; C91.10 Chronic lymphocytic leukemia of B-cell type not having achieved remission; E87.1 Hypo-osmolality and hyponatremia; F32.9 Major depressive disorder, single episode, unspecified; F41.9 Anxiety disorder, unspecified; J44.9 Chronic obstructive pulmonary disease, unspecified; Z79.82 Long term (current) use of aspirin; Z79.899 Other long term (current) drug therapy; Z86.16 Personal history of COVID-19; Z87.891 Personal history of nicotine dependence
CPT/HCPCS: 96361 ×2; 96374; 99284; 36415; 94640 ×2; 80053; 80048; 85025 ×2; 85610; 81001; 76770; 74177; G0378 ×2; J0696; Q9967

== ENCOUNTER 2021-05-22 21:38 | Inpatient (IN) | payer BC, OTHER ==
[2021-05-22] MEDS ORDERED: KETOROLAC 15 MG/ML 1 ML VIAL IVP STA (22:18)
[2021-05-22] MEDS ORDERED: SODIUM CHLORIDE 0.9% 1,000 ML IV STA (22:18)
[2021-05-22] MEDS ORDERED: ACETAMINOPHEN TAB 500 MG TAB PO STA (22:18)
[2021-05-22] MEDS ORDERED: IPRATROPIUM-ALBUTEROL 3 ML NEB INHALATION STA (22:22)
--- NOTE | 2021-05-22 22:34 | ED ---
Fever HPI - General Chief Complaint: Shortness of Breath Stated Complaint: SOB, Abd Pain Time Seen by Provider: 05/22/21 22:08 Source: patient, RN notes reviewed, old records reviewed Mode of arrival: wheelchair Limitations: no limitations - History of Present Illness MD Complaint: fever, weakness -: days(s) Temperature Source: subjective Context: on chemotherapy Associated Symptoms: chills, myalgias, shortness of breath, abdominal pain, nausea Treatments Prior to Arrival: none - Related Data Home Medications Medication Instructions Recorded Confirmed Albuterol Sulfate [Proair Hfa] 2 puff INHALATION RT-QID PRN 09/23/20 05/22/21 Calcium Carbonate [Tums] 1,000 mg PO TID PRN 09/23/20 05/22/21 Cyclobenzaprine [Flexeril] 10 mg PO HS 09/23/20 05/22/21 Ferrous Sulfate [Iron (65 MG 325 mg PO DAILY 09/23/20 05/22/21 Elemental)] Fluticasone/Salmeterol [Advair 1 puff INHALATION RT-BID 09/23/20 05/22/21 250-50 Diskus] Omeprazole 40 mg PO DAILY 09/23/20 05/22/21 PARoxetine [Paxil] 20 mg PO DAILY 09/23/20 05/22/21 Tiotropium [place] [Spiriva] 1 cap INHALATION RT-DAILY 09/23/20 05/22/21 Ascorbic Acid [Vitamin C] 1,000 mg PO DAILY 04/24/21 05/22/21 Cyanocobalamin (Vitamin B-12) 1,000 mcg PO DAILY 04/24/21 05/22/21 [Vitamin B-12] Diclofenac Sodium Gel [Voltaren 1 applic TOPICAL QID PRN 04/24/21 05/22/21 Gel] Glucosam/[place]old-Msm1/C/Lorenzo/Bosw 2 tab PO DAILY 04/24/21 05/22/21 [Glucosamine-Chondroitin Tablet] Inulin/Chromium Picolinate [Fiber 1 tab PO DAILY 04/24/21 05/22/21 Gummies Chew] Multivitamins, Thera [Multivitamin 1 tab PO DAILY 04/24/21 05/22/21 (formulary)] Previous Rx's Medication Instructions Recorded Aspirin 325 mg PO DAILY #30 tab 01/12/21 Cholecalciferol [Vitamin D3 (25 25 mcg PO DAILY #30 tablet 10/27/20 Mcg = 1000 Iu)] Allergies Allergy/AdvReac Type Severity Reaction Status Date / Time Penicillins Allergy Unknown Verified 05/22/21 22:03 Childhood Review of Systems ROS Statement: Those systems with pertinent positive or pertinent negative responses have been documented in the HPI. ROS Other: All systems not noted in ROS Statement are negative. Past Medical History Past Medical History: Cancer, COPD Additional Past Medical History / Comment(s): Chronic lymphocytic leukemia, emphysema, plueral effusion 09/23/2020, covid 10/2020, lupus anticoagulant History of Any Multi-Drug Resistant Organisms: None Reported Past Surgical History: Appendectomy, Orthopedic Surgery Additional Past Surgical History / Comment(s): rt knee Past Anesthesia/Blood Transfusion Reactions: No Reported Reaction Past Psychological History: Anxiety, Depression Smoking Status: Former smoker Past Alcohol Use History: None Reported Past Drug Use History: Marijuana - Past Family History Family Family Medical History: No Reported History General Exam Limitations: no limitations General appearance: alert, in no apparent distress, anxious Head exam: Present: atraumatic, normocephalic, normal inspection Eye exam: Present: normal appearance, PERRL, EOMI. Absent: scleral icterus, conjunctival injection, periorbital swelling ENT exam: Present: normal exam, mucous membranes moist Neck exam: Present: normal inspection. Absent: tenderness, meningismus, lymphadenopathy Respiratory exam: Present: wheezes, accessory muscle use, decreased breath sounds, prolonged expiratory. Absent: respiratory distress, rales, rhonchi, stridor Cardiovascular Exam: Present: normal rhythm, tachycardia, normal heart sounds. Absent: systolic murmur, diastolic murmur, rubs, gallop, clicks GI/Abdominal exam: Present: soft, normal bowel sounds. Absent: distended, tenderness, guarding, rebound, rigid Extremities exam: Present: normal inspection, full ROM, normal capillary refill. Absent: tenderness, pedal edema, joint swelling, calf tenderness Back exam: Present: normal inspection Neurological exam: Present: alert, oriented X3, CN II-XII intact Psychiatric exam: Present: normal affect, normal mood Skin exam: Present: warm, dry, intact, normal color. Absent: rash Course Vital Signs 05/22/21 05/22/21 05/22/21 22:00 22:03 23:02 Temperature 101.5 F H 99.0 F Pulse Rate 114 H 112 H Respiratory 24 Rate Blood Pressure 109/64 O2 Sat by Pulse 99 Oximetry 05/22/21 23:18 Temperature Pulse Rate 113 H Respiratory Rate Blood Pressure O2 Sat by Pulse Oximetry - Reevaluation(s) Reevaluation #1: 05/23/21 00:03 Medical record is reviewed Reevaluation #2: 05/23/21 00:03 Patient's breathing is improved here in the ER, symptoms are improved Reevaluation #3: 05/23/21 00:04 Patient informed results and questions have been answered Medical Decision Making - Lab Data Result diagrams: 05/22/21 22:30 05/22/21 22:30 Lab Results 05/22/21 05/22/21 05/22/21 Range/Units 22:30 22:30 22:30 WBC 17.4 H (3.8-10.6) k/uL RBC 4.21 L (4.30-5.90) m/uL Hgb 10.1 L (13.0-17.5) gm/dL Hct 32.6 L (39.0-53.0) % MCV 77.5 L (80.0-100.0) fL MCH 23.9 L (25.0-35.0) pg MCHC 30.8 L (31.0-37.0) g/dL RDW 19.1 H (11.5-15.5) % Plt Count 440 (150-450) k/uL MPV 6.5 Hypochromasia Moderate Poikilocytosis Slight Anisocytosis Slight Microcytosis Slight PT 30.2 H (9.0-12.0) sec INR 3.1 H (<1.2) APTT 69.6 H (22.0-30.0) sec VBG pH (7.31-7.41) VBG pCO2 (37-51) mmHg VBG HCO3 (24-28) mmol/L Sodium (137-145) mmol/L Potassium (3.5-5.1) mmol/L Chloride (98-107) mmol/L Carbon Dioxide (22-30) mmol/L Anion Gap mmol/L BUN (9-20) mg/dL Creatinine (0.66-1.25) mg/dL Est GFR (CKD-EPI)AfAm (>60 ml/min/1.73 sqM) Est GFR (CKD-EPI)NonAf (>60 ml/min/1.73 sqM) Glucose (74-99) mg/dL Plasma Lactic Acid Justin (0.7-2.0) mmol/L Calcium (8.4-10.2) mg/dL Magnesium (1.6-2.3) mg/dL Total Bilirubin (0.2-1.3) mg/dL AST (17-59) U/L ALT (4-49) U/L Alkaline Phosphatase (38-126) U/L Lactate Dehydrogenase (313-618) U/L C-Reactive Protein (<1.0) mg/dL Total Protein (6.3-8.2) g/dL Albumin (3.5-5.0) g/dL Urine Color Yellow Urine Appearance Turbid (Clear) Urine pH 8.5 H (5.0-8.0) Ur Specific [place] 1.019 (1.001-1.035) Urine Protein 2+ H (Negative) Urine Glucose (UA) Negative (Negative) Urine Ketones Negative (Negative) Urine Blood Large H (Negative) Urine Nitrite Positive (Negative) Urine Bilirubin Negative (Negative) Urine Urobilinogen <2.0 (<2.0) mg/dL Ur Leukocyte Esterase Large H (Negative) Urine RBC 65 H (0-5) /hpf Urine WBC >182 H (0-5) /hpf Urine WBC Clumps Many H (None) /hpf Urine Bacteria Few H (None) /hpf 05/22/21 05/22/21 05/22/21 Range/Units 22:30 22:30 22:30 WBC (3.8-10.6) k/uL RBC (4.30-5.90) m/uL Hgb (13.0-17.5) gm/dL Hct (39.0-53.0) % MCV (80.0-100.0) fL MCH (25.0-35.0) pg MCHC (31.0-37.0) g/dL RDW (11.5-15.5) % Plt Count (150-450) k/uL MPV Hypochromasia Poikilocytosis Anisocytosis Microcytosis PT (9.0-12.0) sec INR (<1.2) APTT (22.0-30.0) sec VBG pH 7.40 (7.31-7.41) VBG pCO2 34 L (37-51) mmHg VBG HCO3 20 L (24-28) mmol/L Sodium 134 L (137-145) mmol/L Potassium 4.7 (3.5-5.1) mmol/L Chloride 103 (98-107) mmol/L Carbon Dioxide 20 L (22-30) mmol/L Anion Gap 11 mmol/L BUN 33 H (9-20) mg/dL Creatinine 2.49 H (0.66-1.25) mg/dL Est GFR (CKD-EPI)AfAm 31 (>60 ml/min/1.73 sqM) Est GFR (CKD-EPI)NonAf 27 (>60 ml/min/1.73 sqM) Glucose 110 H (74-99) mg/dL Plasma Lactic Acid Justin 1.5 (0.7-2.0) mmol/L Calcium 9.6 (8.4-10.2) mg/dL Magnesium 2.0 (1.6-2.3) mg/dL Total Bilirubin 1.1 (0.2-1.3) mg/dL AST 30 (17-59) U/L ALT 10 (4-49) U/L Alkaline Phosphatase 137 H (38-126) U/L Lactate Dehydrogenase 687 H (313-618) U/L C-Reactive Protein 15.9 H (<1.0) mg/dL Total Protein 7.0 (6.3-8.2) g/dL Albumin 4.2 (3.5-5.0) g/dL Urine Color Urine Appearance (Clear) Urine pH (5.0-8.0) Ur Specific [place] (1.001-1.035) Urine Protein (Negative) Urine Glucose (UA) (Negative) Urine Ketones (Negative) Urine Blood (Negative) Urine Nitrite (Negative) Urine Bilirubin (Negative) Urine Urobilinogen (<2.0) mg/dL Ur Leukocyte Esterase (Negative) Urine RBC (0-5) /hpf Urine WBC (0-5) /hpf Urine WBC Clumps (None) /hpf Urine Bacteria (None) /hpf - EKG Data -: EKG Interpreted by Me (EKG shows sinus tachycardia 121 QRS 84 QTc 426) Disposition Clinical Impression: Leukemia, Bronchospasm, acute, COPD exacerbation, Community acquired pneumonia, Fever, UTI (urinary tract infection) Disposition: ADMITTED IP TO THIS HOSP Condition: Fair Is patient prescribed a controlled substance at d/c from ED?: No
[2021-05-22 23:01] LABS: Anisocytosis Slight; HCT 32.6 % (39.0-53.0); HGB 10.1 gm/dL (13.0-17.5); Hypochromasia Moderate; MCH 23.9 pg (25.0-35.0); MCHC 30.8 g/dL (31.0-37.0); MCV 77.5 fL (80.0-100.0); Mean Platelet Volume 6.5; Microcytosis Slight; Platelet Count 440 k/uL (150-450); Poikilocytosis Slight; RBC 4.21 m/uL (4.30-5.90); RDW 19.1 % (11.5-15.5); VBG PH 7.4 (7.31-7.41); WBC 17.4 k/uL (3.8-10.6)
--- NOTE | 2021-05-22 23:11 | XR ---
EXAMINATION TYPE: XR chest 1V portable DATE OF EXAM: 05/22/2021 COMPARISON: 04/24/2021 HISTORY: Short of breath TECHNIQUE: Single view FINDINGS: There is some infiltrate in the medial left lower lobe. Heart size is normal. There are no hilar masses. There is no mediastinal adenopathy. Costophrenic angles are clear. IMPRESSION: There is some infiltrate and volume loss in the medial left lower lobe that is increased compared to recent exam. No heart failure. Normal heart.
[2021-05-22 23:16] LABS: Albumin 4.2 g/dL (3.5-5.0); Calcium 9.6 mg/dL (8.4-10.2); Potassium 4.7 mmol/L (3.5-5.1); Total Bilirubin 1.1 mg/dL (0.2-1.3)
[2021-05-22 23:33] LABS: C Reactive Protein 15.9 mg/dL (<1.0)
[2021-05-22 23:38] LABS: INR 3.1 (<1.2); Prothrombin Time 30.2 sec (9.0-12.0)
[2021-05-22] MEDS ORDERED: SODIUM CHLORIDE 0.9% 1,000 ML IV SCH (23:45)
[2021-05-22] MEDS ORDERED: ONDANSETRON 4 MG/2 ML VIAL IVP PRN (23:47)
[2021-05-22] MEDS ORDERED: AZITHROMYCIN 500 MG in SODIUM CHLORIDE 0.9% 250 ML IVPB STA (23:47)
[2021-05-22] MEDS ORDERED: ACETAMINOPHEN TAB 325 MG TAB PO PRN (23:47)
[2021-05-22] MEDS ORDERED: PNEUMONIA PROTOCOL UTILIZED 1 EACH MISC PO PRN (23:47)
[2021-05-22] MEDS ORDERED: NALOXONE 0.4 MG/ML 1 ML VIAL IV PRN (23:47)
[2021-05-22 23:54] LABS: Appearance,Urine Turbid (Clear); Bacteria,Urine Few /hpf; Bilirubin,Urine Negative (Negative); Blood,Urine Large (Negative); Color,Urine Yellow; Glucose,Urine (UA) Negative (Negative); Ketones,Urine Negative (Negative); Leukocyte Esterase,Urine Large (Negative); Nitrite,Urine Positive (Negative); PH, Urine 8.5 (5.0-8.0); Protein,Urine 2+ (Negative); RBC,Urine 65 /hpf (0-5); Specific Gravity,Urine 1.019 (1.001-1.035); Urobilinogen,Urine <2.0 mg/dL (<2.0); WBC,Urine >182 /hpf (0-5)
[2021-05-23 00:10] LABS: Partial Thromboplastin Time 69.6 sec (22.0-30.0)
[2021-05-23] MEDS: MORPHINE SULFATE 4 MG/ML SYRINGE IV PRN ×2 (00:41→08:46)
[2021-05-23 01:13] LABS: Band Neutrophils % 1 %; Lymphocytes # (M) 10.44 k/uL (1.0-4.8); Monocytes # (M) 1.22 k/uL (0-1.0); Neutrophils % (M) 32 %; Nucleated Red Blood Cells 0 /100 WBC (0-0); Total Cells Counted 100
[2021-05-23 01:14] LABS: Polychromasia Present
[2021-05-23] MEDS ORDERED: HYDROmorphone 1 MG/ML 1 ML SYRINGE IVP STA (02:28)
--- NOTE | 2021-05-23 03:40 | P.HPIM ---
History of Present Illness H&P Date: 05/23/21 Chief Complaint: urianry symptoms, SOB 60 year old male with CLL, COPD not on home oxygen , Lupus anticoagulant on ASA, patient was discharged recently 05/05 after an admission for pasha hematuria , he was also found to have possible renal or extrarenal mass, and urology re commended repeat testing OP in 4 weeks from discharge, he was also admitted 04/25-04/26 for acute COPD exacerbation October 2020 admitted for COVID November 2020 admitted for GI bleeding this time he comes in due to not feeling well, he describes, cloudy urine with dysuria mainly today , but urine was bothering him for couple days, he was also having progressive difficulty breathing described as heavy breathing denies any wheezing , or sick contact, but he is having worsening of his baseline cough. denies any chest pain , denies any hematuria . denies any sore throat , loss of smell or taste sensation , denies any generalized body aches. however, he does report not feeling well, and struggling through his work due to generalized weakness and fatigue no recent travel , no recent changes in his medications. blood work inthe ED showed , leukocytosis which is slightly worse than last adm ission , however he does have chronic elevation of his WBC from CLL, stable microcytic anemia , INR elevated 3.1 (lupus anticoagulant ) new KEERTHI CXR showed left lower lobe infilterates, and his urine was positive for UTI, patient does report one episode of vomiting yesterday , but claims to be due to pulmonary congestion and repeated coughing Review of Systems Pertinent positives as noted in HPI. All other systems were reviewed and are negative Past Medical History Past Medical History: Cancer, COPD Additional Past Medical History / Comment(s): Chronic lymphocytic leukemia, emphysema, plueral effusion 09/23/2020, covid 10/2020, lupus anticoagulant History of Any Multi-Drug Resistant Organisms: None Reported Past Surgical History: Appendectomy, Orthopedic Surgery Additional Past Surgical History / Comment(s): rt knee Past Anesthesia/Blood Transfusion Reactions: No Reported Reaction Past Psychological History: Anxiety, Depression Smoking Status: Former smoker Past Alcohol Use History: None Reported Past Drug Use History: Marijuana - Past Family History Family Family Medical History: No Reported History Medications and Allergies Home Medications Medication Instructions Recorded Confirmed Type Albuterol Sulfate [Proair Hfa] 2 puff INHALATION RT-QID PRN 09/23/20 05/22/21 History Calcium Carbonate [Tums] 1,000 mg PO TID PRN 09/23/20 05/22/21 History Cyclobenzaprine [Flexeril] 10 mg PO HS 09/23/20 05/22/21 History Ferrous Sulfate [Iron (65 MG 325 mg PO DAILY 09/23/20 05/22/21 History Elemental)] Fluticasone/Salmeterol [Advair 1 puff INHALATION RT-BID 09/23/20 05/22/21 History 250-50 Diskus] Omeprazole 40 mg PO DAILY 09/23/20 05/22/21 History PARoxetine [Paxil] 20 mg PO DAILY 09/23/20 05/22/21 History Tiotropium Lima [Spiriva] 1 cap INHALATION RT-DAILY 09/23/20 05/22/21 History Aspirin 325 mg PO DAILY #30 tab 09/27/20 05/22/21 Rx Cholecalciferol [Vitamin D3 (25 25 mcg PO DAILY #30 tablet 10/27/20 05/22/21 Rx Mcg = 1000 Iu)] Ascorbic Acid [Vitamin C] 1,000 mg PO DAILY 04/24/21 05/22/21 History Cyanocobalamin (Vitamin B-12) 1,000 mcg PO DAILY 04/24/21 05/22/21 History [Vitamin B-12] Diclofenac Sodium Gel [Voltaren 1 applic TOPICAL QID PRN 04/24/21 05/22/21 History Gel] Glucosam/Reynold-Msm1/C/Lorenzo/Bosw 2 tab PO DAILY 04/24/21 05/22/21 History [Glucosamine-Chondroitin Tablet] Inulin/Chromium Picolinate [Fiber 1 tab PO DAILY 04/24/21 05/22/21 History Gummies Chew] Multivitamins, Thera [Multivitamin 1 tab PO DAILY 04/24/21 05/22/21 History (formulary)] Allergies Allergy/AdvReac Type Severity Reaction Status Date / Time Penicillins Allergy Unknown Verified 05/22/21 22:03 Childhood Physical Exam Vitals: Vital Signs Temp Pulse Resp BP Pulse Ox 05/23/21 02:32 88 17 108/65 93 L 05/23/21 00:44 98.6 F 109 H 16 124/62 92 L 09/06/21 23:18 113 H 05/22/21 23:02 112 H 05/22/21 22:03 99.0 F 05/22/21 22:00 101.5 F H 114 H 24 109/64 99 Intake and Output 05/22/21 05/22/21 05/23/21 14:59 22:59 06:59 Other: Voiding Method Toilet Weight 61.235 kg Constitutional: No acute distress, conversant, pleasant Eyes: Anicteric sclerae, moist conjunctiva, Pupils equal round reactive to light ENMT: NC/AT Oropharynx clear, no erythema, or exudates Neck: Supple, no masses, or JVD No carotid bruits No thyromegaly Lungs: Clear to auscultation, good breath sounds throughout Clear to percussion Normal respiratory effort, no accessory muscle use Cardiovascular: Heart regular in rate and rhythm, No murmurs, gallops, or rubs No peripheral edema Abdominal: Soft, no tenderness to percussion over costovertebral angles Nontender, no guarding, rebound or rigidity Abdomen moving with respiration Normoactive bowel sounds marked splenomegaly No palpable mass No abdominal wall hernia noted Skin: Normal temperature, tone, texture, turgor No induration No subcutaneous nodules No rash, lesions No ulcers Extremities: No digital cyanosis No clubbing Pedal pulses intact and symmetrical Radial pulses intact and symmetrical No calf tenderness Psychiatric: Alert and oriented to person, place and time Appropriate affect fair judgement Neuro Muscles Strength 4/5 in all 4 extremities Sensation to light touch grossly present throughout Cranial nerves II-XII grossly intact No focal sensory deficits Lymphatics: no palpable cervical or supraclavicular , or inguinal lymph nodes Results CBC & Chem 7: 05/22/21 22:30 05/22/21 22:30 Labs: Abnormal Lab Results - Last 24 Hours (Table) 05/22/21 05/22/21 05/22/21 Range/Units 22:30 22:30 22:30 WBC 17.4 H (3.8-10.6) k/uL RBC 4.21 L (4.30-5.90) m/uL Hgb 10.1 L (13.0-17.5) gm/dL Hct 32.6 L (39.0-53.0) % MCV 77.5 L (80.0-100.0) fL MCH 23.9 L (25.0-35.0) pg MCHC 30.8 L (31.0-37.0) g/dL RDW 19.1 H (11.5-15.5) % Lymphocytes # (Manual) 10.44 H (1.0-4.8) k/uL Monocytes # (Manual) 1.22 H (0-1.0) k/uL PT 30.2 H (9.0-12.0) sec INR 3.1 H (<1.2) APTT 69.6 H (22.0-30.0) sec VBG pCO2 (37-51) mmHg VBG HCO3 (24-28) mmol/L Sodium (137-145) mmol/L Carbon Dioxide (22-30) mmol/L BUN (9-20) mg/dL Creatinine (0.66-1.25) mg/dL Glucose (74-99) mg/dL Alkaline Phosphatase (38-126) U/L Lactate Dehydrogenase (313-618) U/L C-Reactive Protein (<1.0) mg/dL Urine pH 8.5 H (5.0-8.0) Urine Protein 2+ H (Negative) Urine Blood Large H (Negative) Ur Leukocyte Esterase Large H (Negative) Urine RBC 65 H (0-5) /hpf Urine WBC >182 H (0-5) /hpf Urine WBC Clumps Many H (None) /hpf Urine Bacteria Few H (None) /hpf 05/22/21 05/22/21 Range/Units 22:30 22:30 WBC (3.8-10.6) k/uL RBC (4.30-5.90) m/uL Hgb (13.0-17.5) gm/dL Hct (39.0-53.0) % MCV (80.0-100.0) fL MCH (25.0-35.0) pg MCHC (31.0-37.0) g/dL RDW (11.5-15.5) % Lymphocytes # (Manual) (1.0-4.8) k/uL Monocytes # (Manual) (0-1.0) k/uL PT (9.0-12.0) sec INR (<1.2) APTT (22.0-30.0) sec VBG pCO2 34 L (37-51) mmHg VBG HCO3 20 L (24-28) mmol/L Sodium 134 L (137-145) mmol/L Carbon Dioxide 20 L (22-30) mmol/L BUN 33 H (9-20) mg/dL Creatinine 2.49 H (0.66-1.25) mg/dL Glucose 110 H (74-99) mg/dL Alkaline Phosphatase 137 H (38-126) U/L Lactate Dehydrogenase 687 H (313-618) U/L C-Reactive Protein 15.9 H (<1.0) mg/dL Urine pH (5.0-8.0) Urine Protein (Negative) Urine Blood (Negative) Ur Leukocyte Esterase (Negative) Urine RBC (0-5) /hpf Urine WBC (0-5) /hpf Urine WBC Clumps (None) /hpf Urine Bacteria (None) /hpf Assessment and Plan Assessment: severe sepsis secondary to UTI and possible pneumonia KEERTHI CLL chronic microcytic anemia , stable lupus anticoagulant renal mass (or extrarenal mass) continue with OP follow up plan follow up cultures started on azithro and rocephin IVF hydration with 1 L bolus normal saline , then continue at 100 cc per hour lactic acid unremarkable tylenol for fever, breathing treatment as needed continue home inhalers no systemic steroids monitor vital signs f/u morning labs lovenox SC daily for DVT PPX GI PPX with PPI avoid nephrotoxic meds monitor urine output follow up renal function COVID test negative full code anticipated length of stay > 2 midnights anticipated discharge to home
[2021-05-23 05:01] LABS: Anisocytosis Slight; HCT 33.1 % (39.0-53.0); HGB 9.8 gm/dL (13.0-17.5); Hypochromasia Marked; MCH 24.5 pg (25.0-35.0); MCHC 29.6 g/dL (31.0-37.0); Mean Platelet Volume 6.6; Microcytosis Slight; Platelet Count 361 k/uL (150-450); Poikilocytosis Slight; WBC 16.5 k/uL (3.8-10.6)
[2021-05-23] MEDS ORDERED: LORazepam 2 MG/ML INJ IV STA (05:05)
[2021-05-23] MEDS ORDERED: LORazepam 2 MG/ML INJ IV PRN (05:05)
[2021-05-23 05:17] LABS: Albumin 3.9 g/dL (3.5-5.0); Calcium 8.8 mg/dL (8.4-10.2); Phosphorus 5.5 mg/dL (2.5-4.5); Total Bilirubin 0.9 mg/dL (0.2-1.3); Total Protein 6.8 g/dL (6.3-8.2)
[2021-05-23 05:20] LABS: Potassium 5.1 mmol/L (3.5-5.1)
[2021-05-23] MEDS ORDERED: SODIUM CHLORIDE 0.9% 500 ML 500 ML IV ONE (05:55)
[2021-05-23] MEDS ORDERED: SODIUM CHLORIDE 0.9% 1,000 ML IV ONE (05:55)
[2021-05-23] MEDS: SODIUM CHLORIDE 0.9% 1,000 ML IV SCH ×3 (06:03→20:52)
[2021-05-23] MEDS: methylPREDNISolone SOD SUCCI 125 MG/2 ML VIAL IV SCH ×3 (06:04→18:28)
[2021-05-23 06:09] LABS: MCV 82.7 fL (80.0-100.0)
[2021-05-23 07:45] LABS: Eosinophils # (M) 0.17 k/uL (0-0.7); Lymphocytes # (M) 10.73 k/uL (1.0-4.8); Monocytes # (M) 0.66 k/uL (0-1.0); Neutrophils # (M) 4.95 k/uL (1.3-7.7); Neutrophils % (M) 30 %; Nucleated Red Blood Cells 0 /100 WBC (0-0); Total Cells Counted 100
[2021-05-23] MEDS: TIOTROPIUM 2.5 MCG INHALER INHALATION SCH ×2 (07:55→11:19)
[2021-05-23] MEDS: ALBUTEROL HFA INHALER INHALATION PRN ×4 (07:56→19:23)
[2021-05-23] MEDS: SYMBICORT 80-4.5 MCG INHALER INHALATION SCH ×2 (07:56→19:24)
[2021-05-23] MEDS ORDERED: IPRATROPIUM 0.5 MG/2.5 ML NEBU INHALATION SCH (08:00)
[2021-05-23] MEDS: ASPIRIN 325 MG TAB PO SCH (08:35)
[2021-05-23] MEDS: PANTOPRAZOLE 40 MG TABLET PO SCH (08:35)
[2021-05-23] MEDS: PARoxetine 20 MG TAB PO SCH (08:35)
[2021-05-23] MEDS ORDERED: ENOXAPARIN 40 MG/0.4 ML SYRINGE SQ SCH (09:00)
--- NOTE | 2021-05-23 10:18 | XR ---
EXAMINATION TYPE: XR chest 2V DATE OF EXAM: 05/23/2021 COMPARISON: 05/22/2021 INDICATION: Pneumonia TECHNIQUE: Frontal and lateral views of the chest are obtained. FINDINGS: The heart size is normal. The pulmonary vasculature is normal. On the lateral projection there is some posterior infiltrate above the diaphragm. Additional infiltra jose r are not evident. IMPRESSION: 1. Posterior basilar infiltrate. Correlate for pneumonia and atelectasis. Follow-up can be performed as clinically indicated.
--- NOTE | 2021-05-23 14:48 | P.PN ---
Subjective Progress Note Date: 05/23/21 Hospital course: Patient is a very pleasant 60-year-old male with a past medical history of CLL, COPD, and lupus anticoagulant in which she takes aspirin for treatment. He presented to the emergency department with a chief complaint of generally just not feeling well accompanied by dysuria, generalized weakness, fatigue, dyspnea with exertion, and worsening cough. Patient reports these symptoms began 2 days ago and progressively worsened. He was seen and fully evaluated in the emergency department where he was found to have an elevated temp of 101.5F, t achycardia with heart rate of 130, and hypoxic requiring 4L O2 to maintain SpO2 of 90%. Labs completed revealing leukocytosis with WBC count of 17.4 with left shift; and microcytic microchromic anemia with hemoglobin of 10.1 (at baseline level); compensated metabolic acidosis with pH of 7.4, pCO2 of 34, and bicarb of 20; acute kidney injury with BUN 33, creatinine 2.49, and GFR of 27 with baselin e creatinine of 1.2; and urinalysis was positive for UTI. Covid PCR negative. Chest x-ray showing posterior basilar infiltrate concerning for possible pneumonia versus atelectasis. EKG revealed sinus tachycardia at 121 bpm. Patient was admitted under our services and started on IV antibiotics az ithromycin and Rocephin. Physical exam: Vital signs reviewed and stable. General: Nontoxic, no distress and appears stated age. Derm: Skin warm and dry, normal coloration for ethnicity. Head: Atraumatic, normocephalic and symmetric. Eyes: EOMs intact, no lid lag, and anicteric sclera Mouth: no lip lesions, mucus membranes moist Cardiovascular: regular rate and rhythm with normal S1S2, no murmur, positive posterior tibial pulses bilaterally, and cap refill < 2 seconds. Lungs: Respirations even, regular, and unlabored on room air. Lungs CTA echo aterally, no rhonchi, no rales, no wheezing, and no accessory muscle usage. Abdominal: soft, nontender to palpation, no guarding, no appreciable organomegaly Ext: ROM intact. No gross muscle atrophy, no edema, no contractures Neuro: Speech clear, face symmetrical and CN II-XII grossly intact with no noted focal neuro deficits Psych: Alert and oriented to person, place, time, and situation. Appropriate and pleasant affect. Assessment and Plan of Care: Severe sepsis secondary to UTI and concerns of underlying pneumonia with imaging findings of posterior basilar infiltrate -Covid PCR negative. -Urinalysis positive for infection, urine cultures sent to lab and pending results -Chest x-ray showing posterior basilar infiltrate concerning for possible pneumonia versus atelectasis -Oxygenation to be administered and titrated as needed to maintain SPO2 equal to or greater than 92% -Telemetry monitoring. -Bladder management to monitor for postvoid residual -Duonebs as needed for SOB and/or wheezing -Incentive Spirometry -Steroids: Solu-Medrol -Antibiotics: Azithromycin and Rocephin Acute kidney injury -Treatment of underlying infection. -Bladder management, monitor for postvoid residuals -Urine culture pending -Continue with hydration with IV fluids -Continued close monitoring with repeat a.m. labs. -Hold nephrotoxic medications Lupus anticoagulant -Continue daily aspirin COPD, not home oxygen dependent -Patient currently requiring 4 L O2 to maintain SpO2 of 90%. -Patient to continue daily Symbicort and albuterol as needed. -Solu-Medrol CODE STATUS: Full code DVT prophylaxis: Heparin Discussed with: Patient and RN Anticipated discharge date: Clinical course to determine Anticipated discharge place: Home A total of 45 minutes was spent on the care of this complex patient more than 50% of the time was spent in counseling and care coordination. Objective - Vital Signs Vital signs: Vital Signs Temp 97.8 F 05/23/21 05:13 Pulse 127 H 05/23/21 06:07 Resp 18 05/23/21 06:07 BP 117/57 05/23/21 06:07 Pulse Ox 95 05/23/21 07:59 Intake & Output 05/22/21 05/23/21 05/23/21 18:59 06:59 18:59 Weight 61.235 kg Other: Voiding Method Toilet - Labs CBC & Chem 7: 05/23/21 04:39 05/23/21 04:39 Labs: Abnormal Lab Results - Last 24 Hours (Table) 05/22/21 05/22/21 05/22/21 Range/Units 22:30 22:30 22:30 WBC 17.4 H (3.8-10.6) k/uL RBC 4.21 L (4.30-5.90) m/uL Hgb 10.1 L (13.0-17.5) gm/dL Hct 32.6 L (39.0-53.0) % MCV 77.5 L (80.0-100.0) fL MCH 23.9 L (25.0-35.0) pg MCHC 30.8 L (31.0-37.0) g/dL RDW 19.1 H (11.5-15.5) % Lymphocytes # (Manual) 10.44 H (1.0-4.8) k/uL Monocytes # (Manual) 1.22 H (0-1.0) k/uL PT 30.2 H (9.0-12.0) sec INR 3.1 H (<1.2) APTT 69.6 H (22.0-30.0) sec VBG pCO2 (37-51) mmHg VBG HCO3 (24-28) mmol/L Sodium (137-145) mmol/L Carbon Dioxide (22-30) mmol/L BUN (9-20) mg/dL Creatinine (0.66-1.25) mg/dL Glucose (74-99) mg/dL Phosphorus (2.5-4.5) mg/dL Alkaline Phosphatase (38-126) U/L Lactate Dehydrogenase (313-618) U/L C-Reactive Protein (<1.0) mg/dL Urine pH 8.5 H (5.0-8.0) Urine Protein 2+ H (Negative) Urine Blood Large H (Negative) Ur Leukocyte Esterase Large H (Negative) Urine RBC 65 H (0-5) /hpf Urine WBC >182 H (0-5) /hpf Urine WBC Clumps Many H (None) /hpf Urine Bacteria Few H (None) /hpf 05/22/21 05/22/21 05/23/21 Range/Units 22:30 22:30 04:39 WBC 16.5 H (3.8-10.6) k/uL RBC 4.00 L (4.30-5.90) m/uL Hgb 9.8 L (13.0-17.5) gm/dL Hct 33.1 L (39.0-53.0) % MCV (80.0-100.0) fL MCH 24.5 L (25.0-35.0) pg MCHC 29.6 L (31.0-37.0) g/dL RDW 19.0 H (11.5-15.5) % Lymphocytes # (Manual) 10.73 H (1.0-4.8) k/uL Monocytes # (Manual) (0-1.0) k/uL PT (9.0-12.0) sec INR (<1.2) APTT (22.0-30.0) sec VBG pCO2 34 L (37-51) mmHg VBG HCO3 20 L (24-28) mmol/L Sodium 134 L (137-145) mmol/L Carbon Dioxide 20 L (22-30) mmol/L BUN 33 H (9-20) mg/dL Creatinine 2.49 H (0.66-1.25) mg/dL Glucose 110 H (74-99) mg/dL Phosphorus (2.5-4.5) mg/dL Alkaline Phosphatase 137 H (38-126) U/L Lactate Dehydrogenase 687 H (313-618) U/L C-Reactive Protein 15.9 H (<1.0) mg/dL Urine pH (5.0-8.0) Urine Protein (Negative) Urine Blood (Negative) Ur Leukocyte Esterase (Negative) Urine RBC (0-5) /hpf Urine WBC (0-5) /hpf Urine WBC Clumps (None) /hpf Urine Bacteria (None) /hpf 05/23/21 Range/Units 04:39 WBC (3.8-10.6) k/uL RBC (4.30-5.90) m/uL Hgb (13.0-17.5) gm/dL Hct (39.0-53.0) % MCV (80.0-100.0) fL MCH (25.0-35.0) pg MCHC (31.0-37.0) g/dL RDW (11.5-15.5) % Lymphocytes # (Manual) (1.0-4.8) k/uL Monocytes # (Manual) (0-1.0) k/uL PT (9.0-12.0) sec INR (<1.2) APTT (22.0-30.0) sec VBG pCO2 (37-51) mmHg VBG HCO3 (24-28) mmol/L Sodium (137-145) mmol/L Carbon Dioxide 14 L (22-30) mmol/L BUN 34 H (9-20) mg/dL Creatinine 2.58 H (0.66-1.25) mg/dL Glucose 106 H (74-99) mg/dL Phosphorus 5.5 H (2.5-4.5) mg/dL Alkaline Phosphatase (38-126) U/L Lactate Dehydrogenase (313-618) U/L C-Reactive Protein (<1.0) mg/dL Urine pH (5.0-8.0) Urine Protein (Negative) Urine Blood (Negative) Ur Leukocyte Esterase (Negative) Urine RBC (0-5) /hpf Urine WBC (0-5) /hpf Urine WBC Clumps (None) /hpf Urine Bacteria (None) /hpf
[2021-05-23] MEDS: CYCLOBENZAPRINE 10 MG TAB PO SCH (22:00)
[2021-05-24] MEDS: methylPREDNISolone SOD SUCCI 125 MG/2 ML VIAL IV SCH ×4 (01:00→17:15)
[2021-05-24] MEDS: SODIUM CHLORIDE 0.9% 1,000 ML IV SCH ×3 (02:13→14:14)
[2021-05-24] MEDS: AZITHROMYCIN 500 MG in SODIUM CHLORIDE 0.9% 250 ML IVPB SCH (02:15)
[2021-05-24] MEDS: ALBUTEROL HFA INHALER INHALATION PRN ×4 (07:27→20:03)
[2021-05-24] MEDS: SYMBICORT 80-4.5 MCG INHALER INHALATION SCH ×2 (07:28→20:03)
[2021-05-24] MEDS: TIOTROPIUM 2.5 MCG INHALER INHALATION SCH (07:28)
[2021-05-24] MEDS: PARoxetine 20 MG TAB PO SCH (09:13)
[2021-05-24] MEDS: ASPIRIN 325 MG TAB PO SCH (09:15)
[2021-05-24] MEDS: HEPARIN SODIUM,PORCINE/PF 5,000 UNIT/0.5 ML SYRINGE SQ SCH ×2 (09:16→17:14)
[2021-05-24] MEDS: PANTOPRAZOLE 40 MG TABLET PO SCH (09:16)
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
--- NOTE | 2021-05-24 14:18 | P.PN ---
Subjective Progress Note Date: 05/24/21 Hospital course: Patient is a very pleasant 60-year-old male with a past medical history of CLL, COPD, and lupus anticoagulant in which she takes aspirin for treatment. He presented to the emergency department with a chief complaint of generally just not feeling well accompanied by dysuria, generalized weakness, fatigue, dyspnea with exertion, and worsening cough. Patient reports these symptoms began 2 days ago and progressively worsened. He was seen and fully evaluated in the emergency department where he was found to have an elevated temp of 101.5F, t achycardia with heart rate of 130, and hypoxic requiring 4L O2 to maintain SpO2 of 90%. Labs completed revealing leukocytosis with WBC count of 17.4 with left shift; and microcytic microchromic anemia with hemoglobin of 10.1 (at baseline level); compensated metabolic acidosis with pH of 7.4, pCO2 of 34, and bicarb of 20; acute kidney injury with BUN 33, creatinine 2.49, and GFR of 27 with baselin e creatinine of 1.2; and urinalysis was positive for UTI. Covid PCR negative. Chest x-ray showing posterior basilar infiltrate concerning for possible pneumonia versus atelectasis. EKG revealed sinus tachycardia at 121 bpm. Patient was admitted under our services and started on IV antibiotics az ithromycin and Rocephin. Subjective: Feels okay, no chest pain no abdominal pain no nausea no vomiting. He remains afebrile. Objective - Vital Signs Vital signs: Vital Signs Temp 97.5 F L 05/24/21 07:00 Pulse 82 05/24/21 13:11 Resp 14 05/24/21 13:11 BP 130/70 05/24/21 07:00 Pulse Ox 94 L 05/24/21 07:00 Intake & Output 05/23/21 05/24/21 05/24/21 18:59 06:59 18:59 Weight 61.235 kg Other: Voiding Method Toilet Toilet # Voids 1 - Exam General: Nontoxic, no distress and appears stated age. Derm: Skin warm and dry, normal coloration for ethnicity. Head: Atraumatic, normocephalic and symmetric. Eyes: EOMs intact Mouth: no lip lesions, mucus membranes moist Cardiovascular: regular rate and rhythm with normal S1S2, no murmur, positive posterior tibial pulses bilaterally, and cap refill < 2 seconds. Lungs: Respirations even, regular, and unlabored on room air. Lungs CTA bilaterally, no rhonchi, no rales, no wheezing Abdominal: soft, nontender to palpation, no guarding, no appreciable organomegaly Ext: ROM intact. No gross muscle atrophy, no edema, no contractures Neuro: Speech clear, face symmetrical and CN II-XII grossly intact with no noted focal neuro deficits Psych: Alert and oriented to person, place, time, and situation. Appropriate and pleasant affect. - Labs CBC & Chem 7: 05/23/21 04:39 05/23/21 04:39 Labs: Microbiology - Last 24 Hours (Table) 05/22/21 22:30 Urine Culture - Preliminary Urine,Voided Gram Neg Bacilli 05/22/21 22:30 Blood Culture Gram Stain - Preliminary Blood Blood Culture - Preliminary Proteus spec 05/22/21 15:59 Gram Stain - Preliminary Sputum Sputum Culture - Preliminary 05/22/21 22:30 Blood Culture - Final Blood Assessment and Plan Plan: Severe sepsis secondary to UTI and concerns of underlying pneumonia with imaging findings of posterior basilar infiltrate -Covid PCR negative. -Urinalysis positive for infection, urine cultures sent to lab and pending results -Chest x-ray showing posterior basilar infiltrate concerning for possible pneumonia versus atelectasis -Oxygenation to be administered and titrated as needed to maintain SPO2 equal to or greater than 92% -Telemetry monitoring. -Bladder management to monitor for postvoid residual -Duonebs as needed for SOB and/or wheezing -Incentive Spirometry -Steroids: Solu-Medrol -Antibiotics: Azithromycin and Rocephin WBC 16,000 from 17,000 on admission Acute kidney injury -Treatment of underlying infection. -Bladder management, monitor for postvoid residuals -Urine culture pending -Continue with IV fluids -Continued close monitoring with repeat a.m. labs. -Hold nephrotoxic medications Serum creatinine remained stable at 2.5, pending labs today. Lupus anticoagulant -Continue daily aspirin COPD, not home oxygen dependent -Oxygen bronchodilators antibiotics and steroids. CODE STATUS: Full code DVT prophylaxis: Heparin Discussed with: Patient and RN Anticipated discharge date: Clinical course to determine Anticipated discharge place: Home in 1-2 days
[2021-05-24] MEDS: CYCLOBENZAPRINE 10 MG TAB PO SCH (21:59)
[2021-05-25] MEDS: HEPARIN SODIUM,PORCINE/PF 5,000 UNIT/0.5 ML SYRINGE SQ SCH ×3 (00:33→16:13)
[2021-05-25] MEDS: methylPREDNISolone SOD SUCCI 125 MG/2 ML VIAL IV SCH ×4 (00:33→18:16)
[2021-05-25] MEDS: AZITHROMYCIN 500 MG in SODIUM CHLORIDE 0.9% 250 ML IVPB SCH (02:23)
[2021-05-25] MEDS: SODIUM CHLORIDE 0.9% 1,000 ML IV SCH ×2 (04:21→18:18)
[2021-05-25] MEDS: TIOTROPIUM 2.5 MCG INHALER INHALATION SCH (07:50)
[2021-05-25] MEDS: ALBUTEROL HFA INHALER INHALATION PRN ×3 (07:50→20:16)
[2021-05-25] MEDS: SYMBICORT 80-4.5 MCG INHALER INHALATION SCH ×2 (07:50→20:16)
[2021-05-25] MEDS: ASPIRIN 325 MG TAB PO SCH (10:19)
[2021-05-25] MEDS: PARoxetine 20 MG TAB PO SCH (10:19)
[2021-05-25] MEDS: PANTOPRAZOLE 40 MG TABLET PO SCH (10:19)
[2021-05-25 13:59] LABS: Basophils # (A) 0.03 X 10*3/uL (0.00-0.10); Basophils % (A) 0.1 %; Eosinophils # (A) 0 X 10*3/uL (0.04-0.35); Eosinophils % (A) 0 %; HCT 26.5 % (39.6-50.0); HGB 7.9 g/dL (13.0-17.0); Lymphocytes # (A) 14.08 X 10*3/uL (0.90-5.00); Lymphocytes % (A) 64.3 %; MCH 23.7 pg (27.0-32.0); MCHC 29.8 g/dL (32.0-37.0); MCV 79.6 fL (80.0-97.0); Monocytes # (A) 1.39 X 10*3/uL (0.20-1.00); Monocytes % (A) 6.3 %; Neutrophils # (A) 6.27 X 10*3/uL (1.80-7.70); Neutrophils % (A) 28.7 %; Platelet Count 312 X 10*3/uL (140-440); RBC 3.33 X 10*6/uL (4.40-5.60); RDW 20.9 % (11.5-14.5); WBC 21.91 X 10*3/uL (4.50-10.00)
[2021-05-25 14:54] LABS: ALT 9 U/L (4-49); AST 23 U/L (17-59); African American GFR (CKD) 54 (>60 ml/min/1.73 sqM); Albumin 3.2 g/dL (3.5-5.0); Albumin/Globulin Ratio 1.2; Alkaline Phosphatase 90 U/L (38-126); Anion Gap 11 mmol/L; Blood Urea Nitrogen 42 mg/dL (9-20); Calcium 8.6 mg/dL (8.4-10.2); Carbon Dioxide 14 mmol/L (22-30); Chloride 115 mmol/L (98-107); Globulin 2.6 g/dL; Glucose 175 mg/dL (74-99); Non-African American GFR(CKD) 47 (>60 ml/min/1.73 sqM); Sodium 140 mmol/L (137-145); Total Bilirubin 0.3 mg/dL (0.2-1.3); Total Protein 5.8 g/dL (6.3-8.2)
--- NOTE | 2021-05-25 16:43 | P.PN ---
Subjective Progress Note Date: 05/25/21 Hospital course: Patient is a very pleasant 60-year-old male with a past medical history of CLL, COPD, and lupus anticoagulant in which she takes aspirin for treatment. He presented to the emergency department with a chief complaint of generally just not feeling well accompanied by dysuria, generalized weakness, fatigue, dyspnea with exertion, and worsening cough. Patient reports these symptoms began 2 days ago and progressively worsened. He was seen and fully evaluated in the emergency department where he was found to have an elevated temp of 101.5F, t achycardia with heart rate of 130, and hypoxic requiring 4L O2 to maintain SpO2 of 90%. Labs completed revealing leukocytosis with WBC count of 17.4 with left shift; and microcytic microchromic anemia with hemoglobin of 10.1 (at baseline level); compensated metabolic acidosis with pH of 7.4, pCO2 of 34, and bicarb of 20; acute kidney injury with BUN 33, creatinine 2.49, and GFR of 27 with baselin e creatinine of 1.2; and urinalysis was positive for UTI. Covid PCR negative. Chest x-ray showing posterior basilar infiltrate concerning for possible pneumonia versus atelectasis. EKG revealed sinus tachycardia at 121 bpm. Patient was admitted under our services and started on IV antibiotics az ithromycin and Rocephin. Subjective: Feels okay, no chest pain no abdominal pain no nausea no vomiting. He remains afebrile. No dizziness Objective - Vital Signs Vital signs: Vital Signs Temp 97 F L 05/25/21 14:54 Pulse 88 05/25/21 14:54 Resp 16 05/25/21 14:54 BP 121/66 05/25/21 14:54 Pulse Ox 96 05/25/21 14:54 Intake & Output 05/24/21 05/25/21 05/25/21 18:59 06:59 18:59 Intake Total 120 Balance 120 Intake: Oral 120 Other: Voiding Method Toilet Toilet Toilet # Voids 3 2 1 # Bowel Movements 0 - Exam General: Nontoxic, no distress and appears stated age. Derm: Skin warm and dry, normal coloration for ethnicity. Head: Atraumatic, normocephalic and symmetric. Eyes: EOMs intact Mouth: no lip lesions, Cardiovascular: regular rate and rhythm with normal S1S2, no murmur, positive posterior tibial pulses bilaterally, and cap refill < 2 seconds. Lungs: Respirations even, regular, and unlabored on room air. Lungs CTA bilaterally, no rhonchi, no rales, no wheezing Abdominal: soft, nontender to palpation, no guarding, no appreciable organomegaly Ext: ROM intact. No gross muscle atrophy, no edema, no contractures Neuro: Speech clear, face symmetrical and CN II-XII grossly intact with no noted focal neuro deficits Psych: Alert and oriented to person, place, time, and situation. Appropriate and pleasant affect. - Labs CBC & Chem 7: 05/25/21 07:26 05/25/21 07:26 Labs: Abnormal Lab Results - Last 24 Hours (Table) 05/25/21 05/25/21 Range/Units 07:26 07:26 WBC 21.91 H (4.50-10.00) X 10*3/uL RBC 3.33 L (4.40-5.60) X 10*6/uL Hgb 7.9 L (13.0-17.0) g/dL Hct 26.5 L (39.6-50.0) % MCV 79.6 L (80.0-97.0) fL MCH 23.7 L (27.0-32.0) pg MCHC 29.8 L (32.0-37.0) g/dL RDW 20.9 H (11.5-14.5) % MPV 9.0 L (9.5-12.2) fL Absolute Nucleated RBC 0.02 H (0.00-0.00) X 10*3/uL Immature Gran # 0.14 H (0.00-0.04) X 10*3/uL Lymphocytes # 14.08 H (0.90-5.00) X 10*3/uL Monocytes # 1.39 H (0.20-1.00) X 10*3/uL Eosinophils # 0 L (0.04-0.35) X 10*3/uL NRBC/100 WBC Diff 0.1 H (0.0-0.0) /100 WBCS Chloride 115 H (98-107) mmol/L Carbon Dioxide 14 L (22-30) mmol/L BUN 42 H (9-20) mg/dL Creatinine 1.56 H (0.66-1.25) mg/dL Glucose 175 H (74-99) mg/dL Total Protein 5.8 L (6.3-8.2) g/dL Albumin 3.2 L (3.5-5.0) g/dL Microbiology - Last 24 Hours (Table) 05/22/21 15:59 Gram Stain - Final Sputum Sputum Culture - Final 05/22/21 22:30 Urine Culture - Final Urine,Voided Proteus mirabilis Assessment and Plan Plan: Severe sepsis secondary to UTI and concerns of underlying pneumonia with imaging findings of posterior basilar infiltrate -Covid PCR negative. -Urinalysis positive for infection, urine cultures sent to lab and pending results -Chest x-ray showing posterior basilar infiltrate concerning for possible pneumonia versus atelectasis -Oxygenation to be administered and titrated as needed to maintain SPO2 equal to or greater than 92% -Telemetry monitoring. -Bladder management to monitor for postvoid residual -Duonebs as needed for SOB and/or wheezing -Incentive Spirometry -Steroids: Solu-Medrol -Antibiotics: Azithromycin and Rocephin WBC fluctuates , up to 21,000 Acute kidney injury -Treatment of underlying infection. -Bladder management, monitor for postvoid residuals -Urine culture pending -Continue with IV fluids -Hold nephrotoxic medications Serum creatinine improve to 1.5 from 2.5 Lupus anticoagulant -Continue daily aspirin COPD, not home oxygen dependent -Oxygen bronchodilators antibiotics and steroids. Metabolic acidosis secondary to acute kidney injury Serum bicarbonate 14, start oral bicarbonate CODE STATUS: Full code DVT prophylaxis: Heparin Discussed with: Patient and RN Anticipated discharge date: Clinical course to determine Anticipated discharge place: Home in 1-2 days, pending clinical progression
[2021-05-25] MEDS: SODIUM BICARBONATE TAB 650 MG TAB PO SCH ×2 (17:15→20:15)
[2021-05-25] MEDS: clonazePAM 0.5 MG TAB PO PRN (20:15)
[2021-05-25] MEDS: CYCLOBENZAPRINE 10 MG TAB PO SCH (20:15)
[2021-05-26] MEDS: methylPREDNISolone SOD SUCCI 125 MG/2 ML VIAL IV SCH ×2 (00:05→05:26)
[2021-05-26] MEDS: HEPARIN SODIUM,PORCINE/PF 5,000 UNIT/0.5 ML SYRINGE SQ SCH ×4 (00:05→20:21)
[2021-05-26] MEDS: SODIUM CHLORIDE 0.9% 1,000 ML IV SCH ×2 (05:25→20:23)
[2021-05-26] MEDS: SYMBICORT 80-4.5 MCG INHALER INHALATION SCH ×2 (08:19→21:16)
[2021-05-26] MEDS: TIOTROPIUM 2.5 MCG INHALER INHALATION SCH (08:20)
[2021-05-26] MEDS: AZITHROMYCIN 500 MG TAB PO SCH (08:22)
[2021-05-26] MEDS: SODIUM BICARBONATE TAB 650 MG TAB PO SCH ×3 (08:22→20:21)
[2021-05-26] MEDS: ASPIRIN 325 MG TAB PO SCH (08:22)
[2021-05-26] MEDS: PANTOPRAZOLE 40 MG TABLET PO SCH ×2 (08:22→16:57)
[2021-05-26] MEDS: PARoxetine 20 MG TAB PO SCH (08:23)
[2021-05-26 10:20] LABS: Basophils # (A) 0.01 X 10*3/uL (0.00-0.10); Basophils % (A) 0.1 %; Eosinophils # (A) 0 X 10*3/uL (0.04-0.35); Eosinophils % (A) 0 %; HCT 26.5 % (39.6-50.0); HGB 7.7 g/dL (13.0-17.0); Lymphocytes # (A) 12.66 X 10*3/uL (0.90-5.00); Lymphocytes % (A) 68.6 %; MCH 23.1 pg (27.0-32.0); MCHC 29.1 g/dL (32.0-37.0); MCV 79.6 fL (80.0-97.0); Monocytes # (A) 0.91 X 10*3/uL (0.20-1.00); Monocytes % (A) 4.9 %; Neutrophils # (A) 4.71 X 10*3/uL (1.80-7.70); Neutrophils % (A) 25.5 %; Platelet Count 304 X 10*3/uL (140-440); Polychromasia 2+; RBC 3.33 X 10*6/uL (4.40-5.60); RDW 20.8 % (11.5-14.5); WBC 18.45 X 10*3/uL (4.50-10.00)
[2021-05-26 10:24] LABS: Anisocytosis Slight; HCT 29.2 % (39.0-53.0); HGB 8.7 gm/dL (13.0-17.5); Hypochromasia Marked; MCH 23.8 pg (25.0-35.0); MCHC 29.9 g/dL (31.0-37.0); MCV 79.7 fL (80.0-100.0); Microcytosis Slight; Platelet Count 362 k/uL (150-450); Poikilocytosis Slight; RBC 3.67 m/uL (4.30-5.90); RDW 18.8 % (11.5-15.5); WBC 19.7 k/uL (3.8-10.6)
[2021-05-26 10:28] LABS: African American GFR (CKD) 52.7 (60.0-200.0); Albumin 3.4 g/dL (3.80-4.90); Albumin/Globulin Ratio 1.62 (1.60-3.17); Anion Gap 9.9 mmol/L (4.00-12.00); BUN/Creat Ratio 28.13 Ratio (12.00-20.00); Calcium 8.3 mg/dL (8.7-10.3); Carbon Dioxide 19.1 mmol/L (21.6-31.8); Globulin 2.1 g/dL (1.6-3.3); Non-African American GFR(CKD) 45.5 (60.0-200.0); Potassium 3.9 mmol/L (3.5-5.5); Total Bilirubin 0.3 mg/dL (0.2-1.2); Total Protein 5.5 g/dL (6.2-8.2)
--- NOTE | 2021-05-26 11:41 | XR ---
EXAMINATION TYPE: XR chest 2V DATE OF EXAM: 05/26/2021 COMPARISON: 05/23/2021 HISTORY: Shortness of breath TECHNIQUE: Frontal and lateral views of the chest are obtained. FINDINGS: Scattered senescent parenchymal changes noted. Hyperinflation compatible with COPD. Moderate sized infiltrate right upper lobe. Left lower lobe atelectasis or additional infiltrate. Sma ll left effusion. Heart size is stable. Mediastinal structures are stable and grossly unremarkable. No evidence for hilar prominence. Degenerative changes dorsal spine. IMPRESSION: 1. Moderate sized infiltrate right upper lobe. Left lower lobe atelectasis or additional infiltrate. Small left effusion.
--- NOTE | 2021-05-26 12:24 | P.PN ---
Subjective Progress Note Date: 05/26/21 Interval history:Patient is a very pleasant 60-year-old male with a past medical history of CLL, COPD, and lupus anticoagulant in which she takes aspirin for treatment. He presented to the emergency department with a chief complaint of generally just not feeling well accompanied by dysuria, generalized weakness, fatigue, dyspnea with exertion, and worsening cough. Patient reports these symptoms began 2 days ago and progressively worsened. He was seen and fully evaluated in the emergency department where he was found to have an elevated temp of 101.5F, tachycardia with heart rate of 130, and hypoxic requiring 4L O2 to maintain SpO2 of 90%. Labs completed revealing leukocytosis with WBC count of 17.4 with left shift; and microcytic microchromic anemia with hemoglobin of 10.1 (at baseline level); compensated metabolic acidosis with pH of 7.4, pCO2 of 34, and bicarb of 20; acute kidney injury with BUN 33, creatinine 2.49, and GFR of 27 with baseline creatinine of 1.2; and urinalysis was positive for UTI. Covid PCR negative. Chest x-ray showing posterior basilar infiltrate concerning for possible pneumonia versus atelectasis. EKG revealed sinus tachycardia at 121 bpm. Patient was admitted under our services and started on IV antibiotics azithromycin and Rocephin. [id number]: Patient seen and examined today. His breathing has improved. He denies any nausea vomiting fever or chills. He remains on IV antibiotic therapy. He continues to remain on 4 L of oxygen Objective - Vital Signs Vital signs: Vital Signs Temp 97.4 F L 05/26/21 07:00 Pulse 82 05/26/21 07:00 Resp 18 05/26/21 08:00 BP 143/69 05/26/21 07:00 Pulse Ox 91 L 05/26/21 07:00 Intake & Output 05/25/21 05/26/21 05/26/21 18:59 06:59 18:59 Intake Total 210 118 Balance 210 118 Intake: Oral 210 118 Other: Voiding Method Toilet Toilet Toilet # Voids 1 2 - Constitutional General appearance: Present: average body habitus - EENT Eyes: Present: EOMI, PERRLA ENT: Present: normal oropharynx - Neck Neck: Present: normal ROM - Respiratory Respiratory: bilateral: CTA - Cardiovascular Rhythm: regular Heart sounds: normal: S1, S2 - Gastrointestinal General gastrointestinal: Present: normal bowel sounds, soft - Neurologic Neurologic: Present: CNII-XII intact - Psychiatric Psychiatric: Present: A&O x's 3 - Labs CBC & Chem 7: 05/26/21 09:34 05/26/21 05:05 Labs: Abnormal Lab Results - Last 24 Hours (Table) 05/25/21 05/25/21 05/26/21 Range/Units 07:26 07:26 05:05 WBC 21.91 H 18.45 H (4.50-10.00) X 10*3/uL RBC 3.33 L 3.33 L (4.40-5.60) X 10*6/uL Hgb 7.9 L 7.7 L (13.0-17.0) g/dL Hct 26.5 L 26.5 L (39.6-50.0) % MCV 79.6 L 79.6 L (80.0-97.0) fL MCH 23.7 L 23.1 L (27.0-32.0) pg MCHC 29.8 L 29.1 L (32.0-37.0) g/dL RDW 20.9 H 20.8 H (11.5-14.5) % MPV 9.0 L 9.0 L (9.5-12.2) fL Absolute Nucleated RBC 0.02 H 0.04 H (0.00-0.00) X 10*3/uL Immature Gran # 0.14 H 0.16 H (0.00-0.04) X 10*3/uL Lymphocytes # 14.08 H 12.66 H (0.90-5.00) X 10*3/uL Monocytes # 1.39 H (0.20-1.00) X 10*3/uL Eosinophils # 0 L 0 L (0.04-0.35) X 10*3/uL NRBC/100 WBC Diff 0.1 H 0.2 H (0.0-0.0) /100 WBCS Chloride 115 H (98-107) mmol/L Carbon Dioxide 14 L (22-30) mmol/L BUN 42 H (9-20) mg/dL Creatinine 1.56 H (0.66-1.25) mg/dL Est GFR (CKD-EPI)AfAm (60.0-200.0) Est GFR (CKD-EPI)NonAf (60.0-200.0) BUN/Creatinine Ratio (12.00-20.00) Ratio Glucose 175 H (74-99) mg/dL Calcium (8.7-10.3) mg/dL Total Protein 5.8 L (6.3-8.2) g/dL Albumin 3.2 L (3.5-5.0) g/dL 05/26/21 05/26/21 Range/Units 05:05 09:34 WBC 19.7 H (4.50-10.00) X 10*3/uL RBC 3.67 L (4.40-5.60) X 10*6/uL Hgb 8.7 L (13.0-17.0) g/dL Hct 29.2 L (39.6-50.0) % MCV 79.7 L (80.0-97.0) fL MCH 23.8 L (27.0-32.0) pg MCHC 29.9 L (32.0-37.0) g/dL RDW 18.8 H (11.5-14.5) % MPV (9.5-12.2) fL Absolute Nucleated RBC (0.00-0.00) X 10*3/uL Immature Gran # (0.00-0.04) X 10*3/uL Lymphocytes # (0.90-5.00) X 10*3/uL Monocytes # (0.20-1.00) X 10*3/uL Eosinophils # (0.04-0.35) X 10*3/uL NRBC/100 WBC Diff (0.0-0.0) /100 WBCS Chloride 115 H (98-107) mmol/L Carbon Dioxide 19.1 L (22-30) mmol/L BUN 45.0 H (9-20) mg/dL Creatinine 1.6 H (0.66-1.25) mg/dL Est GFR (CKD-EPI)AfAm 52.7 L (60.0-200.0) Est GFR (CKD-EPI)NonAf 45.5 L (60.0-200.0) BUN/Creatinine Ratio 28.13 H (12.00-20.00) Ratio Glucose 152 H (74-99) mg/dL Calcium 8.3 L (8.7-10.3) mg/dL Total Protein 5.5 L (6.3-8.2) g/dL Albumin 3.40 L (3.5-5.0) g/dL Microbiology - Last 24 Hours (Table) 05/22/21 22:30 Blood Culture Gram Stain - Final Blood Blood Culture - Final Proteus mirabilis 05/22/21 15:59 Gram Stain - Final Sputum Sputum Culture - Final 05/22/21 22:30 Urine Culture - Final Urine,Voided Proteus mirabilis Assessment and Plan Assessment: Severe sepsis secondary to UTI, Bilateral pneumonia. -Covid PCR negative. -Urinalysis positive for infection, urine cultures sent to lab and pending results -Chest x-ray reviewed today shows a moderate-sized infiltrate involving the right upper lobe, left lower lobe atelectasis/infiltrate. -Patient's current oxygenation is 91% on 2 L nasal cannula which has improved from yesterday. -Telemetry monitoring. -Duonebs as needed for SOB and/or wheezing -Incentive Spirometry -Steroids: Solu-Medrol has been changed to prednisone daily -Antibiotics: Azithromycin and Rocephin Acute kidney injury -Prerenal injury. Which has improved with IV fluids. Patient is urinating without any difficulty -Hold nephrotoxic medications current serum creatinine 1.6 Lupus anticoagulant Patient's home medication regimen is a daily aspirin 325 daily for anticoagulation. At this time patient has worsening anemia therefore aspirin w ill be discontinued and we'll monitor Acute exacerbation of COPD Patient does not use any home oxygen at baseline. Currently on 2 L. Patient was started on IV Solu-Medrol on admission to the hospital. At this time we'll de-escalate to 40 mg daily steroid taper Metabolic acidosis secondary to acute kidney injury Continue with oral bicarbonate. Patient's acidosis has improved. Microcytic anemia We'll check iron studies. Concern for hemoglobin drop. Patient's hemoglobin on admission was 10.1 most recently has dropped down to 7.7. Patient denies any symptoms of bleeding. Denies any melanotic stools. Will change patient Protonix to twice daily. We will discontinue aspirin for now. We'll repeat a stat CBC. We'll continue to monitor hemoglobin. We'll check iron studies CODE STATUS: Full code DVT prophylaxis: Heparin Discussed with: Patient and RN Anticipated discharge date: Clinical course to determine Anticipated discharge place: Home in 1-2 days, pending clinical progression (1) Community acquired pneumonia Current Visit: Yes Status: Acute Code(s): J18.9 - PNEUMONIA, UNSPECIFIED ORGANISM SNOMED Code(s): 151144571
[2021-05-26] MEDS: ALBUTEROL HFA INHALER INHALATION PRN ×2 (15:20→21:16)
[2021-05-26] MEDS: clonazePAM 0.5 MG TAB PO PRN (20:21)
[2021-05-26] MEDS: CYCLOBENZAPRINE 10 MG TAB PO SCH (20:21)
[2021-05-26 21:49] LABS: % Iron Saturation 8.8 (15.00-50.00)
[2021-05-27 06:26] LABS: Anisocytosis Slight; Basophils % (A) 0 %; Eosinophils % (A) 0 %; HCT 25.8 % (39.0-53.0); Hypochromasia Marked; Lymphocytes # (A) 10.2 k/uL (1.0-4.8); Lymphocytes % (A) 65 %; MCH 24.3 pg (25.0-35.0); MCV 78.2 fL (80.0-100.0); Mean Platelet Volume 6.6; Microcytosis Slight; Monocytes # (A) 0.3 k/uL (0-1.0); Monocytes % (A) 2 %; Neutrophils # (A) 4.6 k/uL (1.3-7.7); Neutrophils % (A) 29 %; Platelet Count 376 k/uL (150-450); Poikilocytosis Slight; RBC 3.29 m/uL (4.30-5.90); WBC 15.6 k/uL (3.8-10.6)
[2021-05-27 06:42] LABS: African American GFR (CKD) 64 (>60 ml/min/1.73 sqM); Anion Gap 9 mmol/L; Blood Urea Nitrogen 38 mg/dL (9-20); Calcium 8.8 mg/dL (8.4-10.2); Carbon Dioxide 18 mmol/L (22-30); Chloride 116 mmol/L (98-107); Glucose 136 mg/dL (74-99); Non-African American GFR(CKD) 55 (>60 ml/min/1.73 sqM); Potassium 3.8 mmol/L (3.5-5.1); Sodium 143 mmol/L (137-145)
[2021-05-27] MEDS: ALBUTEROL HFA INHALER INHALATION PRN ×2 (06:57→19:21)
[2021-05-27] MEDS: TIOTROPIUM 2.5 MCG INHALER INHALATION SCH (06:57)
[2021-05-27] MEDS: SYMBICORT 80-4.5 MCG INHALER INHALATION SCH ×2 (06:57→19:19)
[2021-05-27] MEDS: PANTOPRAZOLE 40 MG TABLET PO SCH ×2 (07:26→17:25)
[2021-05-27] MEDS: HEPARIN SODIUM,PORCINE/PF 5,000 UNIT/0.5 ML SYRINGE SQ SCH ×3 (07:26→20:24)
[2021-05-27] MEDS: predniSONE 20 MG TAB PO SCH (07:26)
[2021-05-27] MEDS: PARoxetine 20 MG TAB PO SCH (07:27)
[2021-05-27] MEDS: SODIUM BICARBONATE TAB 650 MG TAB PO SCH ×3 (07:27→20:24)
[2021-05-27] MEDS: AZITHROMYCIN 500 MG TAB PO SCH (07:27)
[2021-05-27] MEDS: SODIUM CHLORIDE 0.9% 1,000 ML IV SCH ×2 (10:42→20:24)
[2021-05-27] MEDS: MORPHINE SULFATE 4 MG/ML SYRINGE IV PRN (15:19)
--- NOTE | 2021-05-27 16:43 | P.PN ---
Subjective Progress Note Date: 05/27/21 Principal diagnosis: Shortness of breath Interval history:Patient is a very pleasant 60-year-old male with a past medical history of CLL, COPD, and lupus anticoagulant in which she takes aspirin for treatment. He presented to the emergency department with a chief complaint of generally just not feeling well accompanied by dysuria, generalized weakness, fatigue, dyspnea with exertion, and worsening cough. Patient reports these symptoms began 2 days ago and progressively worsened. He was seen and fully evaluated in the emergency department where he was found to have an elevated temp of 101.5F, tachycardia with heart rate of 130, and hypoxic requiring 4L O2 to maintain SpO2 of 90%. Labs completed revealing leukocytosis with WBC count of 17.4 with left shift; and microcytic microchromic anemia with hemoglobin of 10.1 (at baseline level); compensated metabolic acidosis with pH of 7.4, pCO2 of 34, and bicarb of 20; acute kidney injury with BUN 33, creatinine 2.49, and GFR of 27 with baseline creatinine of 1.2; and urinalysis was positive for UTI. Covid PCR negative. Chest x-ray showing posterior basilar infiltrate concerning for possible pneumonia versus atelectasis. EKG revealed sinus tachycardia at 121 bpm. Patient was admitted under our services and started on IV antibiotics azithromycin and Rocephin. [id number]: Patient seen and examined today. His breathing has improved. He denies any nausea vomiting fever or chills. Patient remains on IV antibiotic therapy for his pneumonia. Patient continues to remain on 4 L of oxygen at this time at home patient is not on any oxygen at all Objective - Vital Signs Vital signs: Vital Signs Temp 97.7 F 05/27/21 13:38 Pulse 85 05/27/21 13:38 Resp 22 05/27/21 13:38 BP 155/88 05/27/21 13:38 Pulse Ox 97 05/27/21 13:38 Intake & Output 05/26/21 05/27/21 05/27/21 18:59 06:59 18:59 Intake Total 118 398 Balance 118 398 Intake: Oral 118 398 Other: Voiding Method Toilet Toilet Toilet # Voids 2 3 1 - Exam - Constitutional General appearance: Present: average body habitus - EENT Eyes: Present: EOMI, PERRLA ENT: Present: normal oropharynx - Neck Neck: Present: normal ROM - Respiratory Respiratory: bilateral: CTA - Cardiovascular Rhythm: regular Heart sounds: normal: S1, S2 - Gastrointestinal General gastrointestinal: Present: normal bowel sounds, soft - Neurologic Neurologic: Present: CNII-XII intact - Psychiatric Psychiatric: Present: A&O x's 3 - Labs CBC & Chem 7: 05/27/21 05:50 05/27/21 05:50 Labs: Abnormal Lab Results - Last 24 Hours (Table) 05/26/21 05/27/21 05/27/21 Range/Units 05:50 05:50 05:50 WBC 15.6 H (3.8-10.6) k/uL RBC 3.29 L (4.30-5.90) m/uL Hgb 8.0 L (13.0-17.5) gm/dL Hct 25.8 L (39.0-53.0) % MCV 78.2 L (80.0-100.0) fL MCH 24.3 L (25.0-35.0) pg RDW 19.0 H (11.5-15.5) % Lymphocytes # 10.2 H (1.0-4.8) k/uL Chloride 116 H (98-107) mmol/L Carbon Dioxide 18 L (22-30) mmol/L BUN 38 H (9-20) mg/dL Creatinine 1.36 H (0.66-1.25) mg/dL Glucose 136 H (74-99) mg/dL Iron 22 L (65-175) ug/dL % Saturation 8.80 L (15.00-50.00) Assessment and Plan Assessment: Severe sepsis secondary to UTI, Bilateral pneumonia with bacteremia -Proteus Mirabelis bacteremia -Urine culture positive for Proteus Mirabilis -Chest x-ray reviewed shows a moderate-sized infiltrate involving the right upper lobe, left lower lobe atelectasis/infiltrate. -Patient's current oxygenation is 96% on 3 L nasal cannula which is improving -Telemetry monitoring. -Duonebs as needed for SOB and/or wheezing -Incentive Spirometry -Steroids: Patient is on prednisone daily for COPD exacerbation -Antibiotics: Azithromycin and Rocephin Acute kidney injury -Prerenal injury. Which has improved with IV fluids. Patient is urinating without any difficulty -Hold nephrotoxic medications. IV fluids have now been discontinued patient encouraged for oral intake current serum creatinine 1.6 Lupus anticoagulant Patient's home medication regimen is a daily aspirin 325 daily for anticoagulation. Due to concern of worsening anemia and patient's given history of upper GI bleed. I have discontinued his aspirin and will continue to monitor his hemoglobin. May resume aspirin on discharge of patient's anemia stays stable Acute exacerbation of COPD Patient does not use any home oxygen at baseline. Currently on 3 L. Patient was started on IV Solu-Medrol on admission to the hospital. She has been now been tapered down to 40 mg daily. Patient is no longer having any further w heezing Metabolic acidosis secondary to acute kidney injury Continue with oral bicarbonate. Patient's acidosis has improved. Microcytic anemia We'll check iron studies. Concern for hemoglobin drop. Patient's hemoglobin on admission was 10.1 most recently has dropped down to 8. Patient denies any symptoms of bleeding. Denies any melanotic stools. She was on Protonix twice daily. Aspirin was discontinued. Iron studies are currently pending CODE STATUS: Full code DVT prophylaxis: Heparin Discussed with: Patient and RN Anticipated discharge date: Clinical course to determine Anticipated discharge place: Home in 1-2 days, pending clinical progression (1) Community acquired pneumonia Current Visit: Yes Status: Acute Code(s): J18.9 - PNEUMONIA, UNSPECIFIED ORGANISM SNOMED Code(s): 357053379
[2021-05-27] MEDS: CYCLOBENZAPRINE 10 MG TAB PO SCH (20:23)
[2021-05-28] MEDS: SODIUM BICARBONATE TAB 650 MG TAB PO SCH ×3 (07:11→21:05)
[2021-05-28] MEDS: PANTOPRAZOLE 40 MG TABLET PO SCH ×2 (07:11→16:00)
[2021-05-28] MEDS: predniSONE 20 MG TAB PO SCH (07:11)
[2021-05-28] MEDS: AZITHROMYCIN 500 MG TAB PO SCH (07:12)
[2021-05-28] MEDS: PARoxetine 20 MG TAB PO SCH (07:12)
[2021-05-28] MEDS: HEPARIN SODIUM,PORCINE/PF 5,000 UNIT/0.5 ML SYRINGE SQ SCH ×2 (07:12→16:00)
[2021-05-28] MEDS: SYMBICORT 80-4.5 MCG INHALER INHALATION SCH ×2 (08:31→20:54)
[2021-05-28] MEDS: TIOTROPIUM 2.5 MCG INHALER INHALATION SCH (08:31)
[2021-05-28] MEDS: ALBUTEROL HFA INHALER INHALATION PRN ×2 (08:31→20:54)
[2021-05-28] MEDS: SODIUM CHLORIDE 0.9% 1,000 ML IV SCH ×2 (12:00→16:00)
[2021-05-28 12:26] LABS: HCT 30.8 % (39.6-50.0); HGB 8.7 g/dL (13.0-17.0); MCH 22.5 pg (27.0-32.0); MCHC 28.2 g/dL (32.0-37.0); MCV 79.8 fL (80.0-97.0); Mean Platelet Volume 8.6 fL (9.5-12.2); Platelet Count 362 X 10*3/uL (140-440); RBC 3.86 X 10*6/uL (4.40-5.60); RDW 20.5 % (11.5-14.5); WBC 20.75 X 10*3/uL (4.50-10.00)
[2021-05-28 13:12] LABS: African American GFR (CKD) 74.7 (60.0-200.0); Anion Gap 7.7 mmol/L (4.00-12.00); BUN/Creat Ratio 24.17 Ratio (12.00-20.00); Calcium 8.9 mg/dL (8.7-10.3); Carbon Dioxide 24.3 mmol/L (21.6-31.8); Non-African American GFR(CKD) 64.4 (60.0-200.0); Potassium 3.7 mmol/L (3.5-5.5)
[2021-05-28 13:27] LABS: Basophils # (A) 0.03 X 10*3/uL (0.00-0.10); Basophils % (A) 0.1 %; Eosinophils # (A) 0.06 X 10*3/uL (0.04-0.35); Eosinophils % (A) 0.3 %; Lymphocytes # (A) 16.45 X 10*3/uL (0.90-5.00); Lymphocytes % (A) 79.3 %; Monocytes % (A) 1.9 %; Neutrophils # (A) 3.65 X 10*3/uL (1.80-7.70); Neutrophils % (A) 17.6 %
--- NOTE | 2021-05-28 14:19 | P.PN ---
Subjective Progress Note Date: 05/28/21 Hospital course: Patient is a very pleasant 60-year-old male with a past medical history of CLL, COPD, and lupus anticoagulant in which she takes aspirin for treatment. He presented to the emergency department with a chief complaint of generally just not feeling well accompanied by dysuria, generalized weakness, fatigue, dyspnea with exertion, and worsening cough. Patient reports these symptoms began 2 days ago and progressively worsened. He was seen and fully evaluated in the emergency department where he was found to have an elevated temp of 101.5F, t achycardia with heart rate of 130, and hypoxic requiring 4L O2 to maintain SpO2 of 90%. Labs completed revealing leukocytosis with WBC count of 17.4 with left shift; and microcytic microchromic anemia with hemoglobin of 10.1 (at baseline level); compensated metabolic acidosis with pH of 7.4, pCO2 of 34, and bicarb of 20; acute kidney injury with BUN 33, creatinine 2.49, and GFR of 27 with baselin e creatinine of 1.2; and urinalysis was positive for UTI. Covid PCR negative. Chest x-ray showing posterior basilar infiltrate concerning for possible pneumonia versus atelectasis. EKG revealed sinus tachycardia at 121 bpm. Patient was admitted under our services and started on IV antibiotics az ithromycin and Rocephin. Subjective: 05/28/2021: Feels okay, no chest pain no abdominal pain no nausea no vomiting. He remains afebrile. No dizziness . Now on 3 L of oxygen. Objective - Vital Signs Vital signs: Vital Signs Temp 97.9 F 05/28/21 14:03 Pulse 86 05/28/21 14:03 Resp 20 05/28/21 14:03 BP 134/75 05/28/21 14:03 Pulse Ox 99 05/28/21 14:03 Intake & Output 05/27/21 05/28/21 05/28/21 18:59 06:59 18:59 Intake Total 398 200 Balance 398 200 Intake: Oral 398 200 Other: Voiding Method Toilet Toilet Toilet # Voids 1 1 - Exam General: Nontoxic, no distress and appears stated age. Derm: Skin warm and dry, normal coloration for ethnicity. Head: Atraumatic, normocephalic and symmetric. Eyes: EOMs intact Mouth: no lip lesions, Cardiovascular: regular rate and rhythm with normal S1S2, no murmur Lungs: Respirations even, regular, and unlabored on room air. Lungs CTA bilaterally, no rhonchi, no rales, no wheezing Abdominal: soft, nontender to palpation, no guarding, no appreciable organomeg lisa Ext: ROM intact. No gross muscle atrophy, no edema, Neuro: Speech clear, face symmetrical and CN II-XII grossly intact with no noted focal neuro deficits Psych: Alert and oriented to person, place, time, and situation. Appropriate and pleasant affect. - Labs CBC & Chem 7: 05/28/21 07:02 05/28/21 07:02 Labs: Abnormal Lab Results - Last 24 Hours (Table) 05/28/21 05/28/21 Range/Units 07:02 07:02 WBC 20.75 H (4.50-10.00) X 10*3/uL RBC 3.86 L (4.40-5.60) X 10*6/uL Hgb 8.7 L (13.0-17.0) g/dL Hct 30.8 L (39.6-50.0) % MCV 79.8 L (80.0-97.0) fL MCH 22.5 L (27.0-32.0) pg MCHC 28.2 L (32.0-37.0) g/dL RDW 20.5 H (11.5-14.5) % MPV 8.6 L (9.5-12.2) fL Absolute Nucleated RBC 0.10 H (0.00-0.00) X 10*3/uL Immature Gran # 0.16 H (0.00-0.04) X 10*3/uL NRBC/100 WBC Diff 0.5 H (0.0-0.0) /100 WBCS BUN 29.0 H (9.0-27.0) mg/dL BUN/Creatinine Ratio 24.17 H (12.00-20.00) Ratio Glucose 62 L (70-110) mg/dL Assessment and Plan Plan: Severe sepsis secondary to UTI and concerns of underlying pneumonia with imaging findings of posterior basilar infiltrate -Covid PCR negative. -Urinalysis positive for infection, urine cultures sent to lab and pending r esults -Chest x-ray showing posterior basilar infiltrate concerning for possible pneumonia versus atelectasis -Oxygenation to be administered and titrated as needed to maintain SPO2 equal to or greater than 92% -Telemetry monitoring. -Bladder management to monitor for postvoid residual -Duonebs as needed for SOB and/or wheezing -Incentive Spirometry -Steroids: Solu-Medrol -Antibiotics: Azithromycin and Rocephin WBC fluctuates , up to 20,000 Recheck chest x-ray by tomorrow. Acute kidney injury -Treatment of underlying infection. -Bladder management, monitor for postvoid residuals -Urine culture pending -Continue with IV fluids -Hold nephrotoxic medications Serum creatinine improve to 1.2 from 2.5 Lupus anticoagulant -Continue daily aspirin COPD, not home oxygen dependent -Oxygen bronchodilators antibiotics and steroids. Currently on 3 L of oxygen. Metabolic acidosis secondary to acute kidney injury Serum bicarbonate was 14, continue oral bicarbonate, currently up to 24. Discontinue sodium bicarbonate by tomorrow if bicarbonate remained stable. CODE STATUS: Full code DVT prophylaxis: Heparin Discussed with: Patient and RN Anticipated discharge date: Clinical course to determine Anticipated discharge place: Home in 1-2 days, pending clinical progression
[2021-05-28] MEDS: CYCLOBENZAPRINE 10 MG TAB PO SCH (21:05)
[2021-05-29] MEDS: HEPARIN SODIUM,PORCINE/PF 5,000 UNIT/0.5 ML SYRINGE SQ SCH ×4 (00:18→23:49)
[2021-05-29] MEDS: SODIUM BICARBONATE TAB 650 MG TAB PO SCH ×3 (07:20→21:51)
[2021-05-29] MEDS: PARoxetine 20 MG TAB PO SCH (07:20)
[2021-05-29] MEDS: AZITHROMYCIN 500 MG TAB PO SCH (07:21)
[2021-05-29] MEDS: PANTOPRAZOLE 40 MG TABLET PO SCH ×2 (07:32→16:40)
[2021-05-29] MEDS: SYMBICORT 80-4.5 MCG INHALER INHALATION SCH ×2 (08:28→20:22)
[2021-05-29] MEDS: ALBUTEROL HFA INHALER INHALATION PRN ×4 (08:28→20:22)
[2021-05-29] MEDS: TIOTROPIUM 2.5 MCG INHALER INHALATION SCH (08:28)
--- NOTE | 2021-05-29 10:08 | XR ---
EXAMINATION TYPE: XR chest 1V DATE OF EXAM: 05/29/2021 HISTORY: Shortness of breath. COMPARISON: 05/26/21 TECHNIQUE: Single view of the chest is submitted. FINDINGS: Demonstrated are scattered senescent parenchymal change. Right upper lobe infiltrate persists although is much improved. Left lower lobe atelectasis or infilt rate is unchanged. I suspect tiny effusions. The heart is stable. Hilar and mediastinal structures are within normal limits. Degenerative changes are seen of the dorsal spine. IMPRESSION: 1. Right upper lobe infiltrate persists although is much improved. Left lower lobe atelectasis or in filtrate is unchanged. I suspect tiny effusions.
[2021-05-29] MEDS: SODIUM CHLORIDE 0.9% 1,000 ML IV SCH (12:05)
[2021-05-29] MEDS: predniSONE 20 MG TAB PO SCH (12:05)
[2021-05-29 12:34] LABS: HCT 25.7 % (39.6-50.0); HGB 7.5 g/dL (13.0-17.0); MCH 22.7 pg (27.0-32.0); MCHC 29.2 g/dL (32.0-37.0); MCV 77.9 fL (80.0-97.0); Mean Platelet Volume 8.9 fL (9.5-12.2); Platelet Count 316 X 10*3/uL (140-440); RDW 19.9 % (11.5-14.5); WBC 11.63 X 10*3/uL (4.50-10.00)
[2021-05-29 16:07] LABS: African American GFR (CKD) 74.7 (60.0-200.0); Albumin 3.3 g/dL (3.80-4.90); Albumin/Globulin Ratio 1.83 (1.60-3.17); Anion Gap 7.2 mmol/L (4.00-12.00); BUN/Creat Ratio 21.67 Ratio (12.00-20.00); Calcium 8.4 mg/dL (8.7-10.3); Carbon Dioxide 25.8 mmol/L (21.6-31.8); Globulin 1.8 g/dL (1.6-3.3); Non-African American GFR(CKD) 64.4 (60.0-200.0); Potassium 3.5 mmol/L (3.5-5.5); Total Bilirubin 0.7 mg/dL (0.2-1.2); Total Protein 5.1 g/dL (6.2-8.2)
[2021-05-29] MEDS: CYCLOBENZAPRINE 10 MG TAB PO SCH (21:51)
--- NOTE | 2021-05-29 21:51 | P.PN ---
Subjective Progress Note Date: 05/29/21 (delayed charting seen at 1400) Patient is a 60-year-old male with a history of CLL, COPD not requiring home oxygen, lupus anticoagulant, and prior COVID-19 who presented to the hospital with complaints of shortness of breath and feelings of urinary retention. Patient had been discharged here on 820 after an admission for pasha hematuria with possible renal or extrarenal mass. The ER he was found to have urinary tract infection and possible pneumonia with severe sepsis and acute kidney injury. He was started on Rocephin and Zithromax. He was also given IV fluids. There was also concerns for acute COPD He was seen by psychiatry for depression and they recommended outpatient follow-up. He ultimately came back with Proteus urinary tract infection and Proteus bacteremia. Chest x-ray continued to demonstrate a right upper lobe infiltrate as well as left lower lobe atelectasis or infiltrate throughout his hospital stay. Patient seen and examined at bedside. He is feeling much better today his breathing is better, he states that he is urinating better than he hasn't months, no nausea, vomiting, or diarrhea. General: non toxic, no distress, appears older than stated age Derm: warm, dry Head: atraumatic, normocephalic, symmetric Eyes: EOMI, no lid lag, anicteric sclera Mouth: no lip lesion, mucus membranes moist Cardiovascular: S1S2 reg, no murmur, positive posterior tibial pulse bilateral, Lungs: Coarse breath sounds bilateral bilateral, no rhonchi, no rales , no accessory muscle use Abdominal: soft, nontender to palpation, no guarding, no appreciable organomegaly Ext: no gross muscle atrophy, no edema, no contractures Neuro: CN II-XI grossly intact, no focal neuro deficits Psych: Alert, oriented, appropriate affect Proteus urinary tract infection with Proteus bacteremia, present on admission Severe sepsis -Patient with recent renal versus extrarenal lesion demonstrated on CT 05/04 -Repeat renal ultrasound -Consult ID -Continue with Rocephin - need outpatient urology follow-up Pneumonia, present on admission -COVID-19 testing negative -Continue with Rocephin and Zithromax -Supportive care Severe iron deficiency anemia with percent saturation of 8.8 -IV iron 1 CLL -Continue outpatient follow-up COPD with acute exacerbation -Patient has been on IV Solu-Medrol -Now transitioned to oral prednisone - conitnue with bronchdilators KEERTHI, resolved Metabolic acidosis Objective - Vital Signs Vital signs: Vital Signs Temp 97.8 F 05/29/21 20:00 Pulse 89 05/29/21 20:00 Resp 16 05/29/21 20:00 BP 145/73 05/29/21 20:00 Pulse Ox 92 L 05/29/21 20:22 Intake & Output 05/29/21 05/29/21 05/30/21 06:59 18:59 06:59 Other: Voiding Method Toilet # Voids 2 3 - Labs CBC & Chem 7: 05/29/21 05:41 05/29/21 05:41 Labs: Abnormal Lab Results - Last 24 Hours (Table) 05/28/21 05/29/21 05/29/21 Range/Units 07:02 05:41 05:41 WBC 11.63 H (4.50-10.00) X 10*3/uL RBC 3.30 L (4.40-5.60) X 10*6/uL Hgb 7.5 L (13.0-17.0) g/dL Hct 25.7 L (39.6-50.0) % MCV 77.9 L (80.0-97.0) fL MCH 22.7 L (27.0-32.0) pg MCHC 29.2 L (32.0-37.0) g/dL RDW 19.9 H (11.5-14.5) % MPV 8.9 L (9.5-12.2) fL Absolute Nucleated RBC 0.07 H (0.00-0.00) X 10*3/uL Lymphocytes # 16.45 H (0.90-5.00) X 10*3/uL NRBC/100 WBC Diff 0.6 H (0.0-0.0) /100 WBCS BUN/Creatinine Ratio 21.67 H (12.00-20.00) Ratio Calcium 8.4 L (8.7-10.3) mg/dL AST 13 L (14-35) U/L Total Protein 5.1 L (6.2-8.2) g/dL Albumin 3.30 L (3.80-4.90) g/dL
--- NOTE | 2021-05-29 23:31 | P.CONS ---
History of Present Illness - Reason for Consult Consult date: 05/29/21 Proteus bacteremia Requesting physician: Cindy Aggarwal - Chief Complaint urinary burning x few days - History of Present Illness History of present illness : Patient is 60-year-old male presenting to the ER about a week ago on 05/22/2021 for evaluation of not feeling well patient did have a cloudy urine dysuria with the symptoms that has been progressively getting worse for the last few days also complaining of increasing shortness of breath no chest pain no worsening cough no nausea no vomiting no abdominal pain or any diarrhea on presentation to the hospital patient did have a fever of 101.5 degree form height patient has been afebrile since then patient did have a white count of 21.9 that is down to 11.63 today patient did have elevated BUN and creatinine that has subsequently normalized did have a positive UA huff PCR has been negative patient did have a positive blood culture as well as urine culture for Proteus mirabilis that is a sensitive pathogen patient is being treated with Rocephin 1 g daily along with Zithromax patient chest x-ray on admission medial left lower lobe infiltrate chest x-ray obtained today right upper lobe infiltrate persists but much improved infectious disease was consulted today for his bacteremia after the patient has been in the hospital for almost a week, patient is overall feeling better urinary symptom has improved denies having headache chest pain shortness of breath minimal cough no abdominal pain no diarrhea Review of system: CONSTITUTIONAL: Positive for weakness along with the fever. EYES: No complaint. ENT: No complaint. RESPIRATORY: As per history of present illness. CARDIOVASCULAR: No complaint. GENITOURINARY: As per history of present illness. GASTROINTESTINAL: No complaint. MUSCULOSKELETAL: No complaint. INTEGUMENTARY: No complaint. PSYCHOLOGIC: No complaint. ENDOCRINE: No complaint. NEUROLOGIC: No complaint. Past medical history : Reviewed, documented below Past surgical history : Reviewed, documented below Social history: Reviewed, documented below Medications: Reviewed, as documented below EXAMINATION: Vital sigans= Reviewed and documented below GENERAL DESCRIPTION: Middle-aged male lying in bed, no distress. No tachypnea or accessory muscle of respiration use. HEENT: Shows Pallor , no scleral icterus. Oral mucous membrane is dry. NECK: Trachea central, no thyromegaly. LUNGS: Unlabored breathing. Clear to auscultation anteriorly. No wheeze or crackle. HEART: S1, S2, regular rate and rhythm. ABDOMEN: Soft, no tenderness , guarding or rigidity EXTREMITIES: No edema of feet. SKIN: No rash, no masses palpable. NEUROLOGICAL: The patient is awake, alert, oriented x3, mood and affect normal. LABS AND RADIOLOGY: Reviewed results see below Assessment : Patient presented to hospital with urinary burning frequency in this patient who did have a fever did have a positive UA now do have evidence of Proteus mirabilis bacteremia secondary to urinary source concerning for possible complicated UTI in this patient seen her overall improvement with the Rocephin Plan: 1-Rocephin 1 g daily to continue 2-obtain ultrasound of the kidney bladder to make sure no evidence of any structural abnormality 3-if continue to improve to finish therapy with either Cipro or Ceftin, and duration of antibiotic should be total of 12 weeks We will follow on clinical condition and cultures to further adjust medication if needed Thank you for this consultation we will follow the patient along with you Past Medical History Past Medical History: Cancer, COPD Additional Past Medical History / Comment(s): Chronic lymphocytic leukemia, emphysema, plueral effusion 09/23/2020, covid 10/2020, lupus anticoagulant History of Any Multi-Drug Resistant Organisms: None Reported Past Surgical History: Appendectomy, Orthopedic Surgery Additional Past Surgical History / Comment(s): rt knee Past Anesthesia/Blood Transfusion Reactions: No Reported Reaction Past Psychological History: Anxiety, Depression Additional Psychological History / Comment(s): pt states he gets occassional suicidal thoughts but doesn't have a plan and wants a plan Smoking Status: Former smoker Past Alcohol Use History: None Reported Past Drug Use History: Marijuana - Past Family History Family Family Medical History: No Reported History Medications and Allergies Home Medications Medication Instructions Recorded Confirmed Type Albuterol Sulfate [Proair Hfa] 2 puff INHALATION RT-QID PRN 09/23/20 05/22/21 History Calcium Carbonate [Tums] 1,000 mg PO TID PRN 09/23/20 05/22/21 History Cyclobenzaprine [Flexeril] 10 mg PO HS 09/23/20 05/22/21 History Ferrous Sulfate [Iron (65 MG 325 mg PO DAILY 09/23/20 05/22/21 History Elemental)] Fluticasone/Salmeterol [Advair 1 puff INHALATION RT-BID 09/23/20 05/22/21 History 250-50 Diskus] Omeprazole 40 mg PO DAILY 09/23/20 05/22/21 History PARoxetine [Paxil] 20 mg PO DAILY 09/23/20 05/22/21 History Tiotropium [place] [Spiriva] 1 cap INHALATION RT-DAILY 09/23/20 05/22/21 History Aspirin 325 mg PO DAILY #30 tab 09/27/20 05/22/21 Rx Cholecalciferol [Vitamin D3 (25 25 mcg PO DAILY #30 tablet 10/27/20 05/22/21 Rx Mcg = 1000 Iu)] Ascorbic Acid [Vitamin C] 1,000 mg PO DAILY 04/24/21 05/22/21 History Cyanocobalamin (Vitamin B-12) 1,000 mcg PO DAILY 04/24/21 05/22/21 History [Vitamin B-12] Diclofenac Sodium Gel [Voltaren 1 applic TOPICAL QID PRN 04/24/21 05/22/21 History Gel] Glucosam/Reynold-Msm1/C/Lorenzo/Bosw 2 tab PO DAILY 04/24/21 05/22/21 History [Glucosamine-Chondroitin Tablet] Inulin/Chromium Picolinate [Fiber 1 tab PO DAILY 04/24/21 05/22/21 History Gummies Chew] Multivitamins, Thera [Multivitamin 1 tab PO DAILY 04/24/21 05/22/21 History (formulary)] Allergies Allergy/AdvReac Type Severity Reaction Status Date / Time Penicillins Allergy Unknown Verified 05/22/21 22:03 Childhood Physical Exam Vitals: Vital Signs Temp Pulse Resp BP Pulse Ox 05/29/21 14:43 97.9 F 84 16 112/61 92 L 05/29/21 14:00 16 05/29/21 08:00 18 05/29/21 07:00 97.7 F 87 17 140/88 96 05/29/21 01:06 97.5 F L 68 16 142/73 92 L 05/28/21 19:32 97.4 F L 73 16 152/80 100 Intake and Output 05/29/21 05/29/21 05/29/21 06:59 14:59 22:59 Other: Voiding Method Toilet # Voids 2 3 Results CBC & Chem 7: 05/29/21 05:41 05/29/21 05:41 Labs: Abnormal Lab Results - Last 24 Hours (Table) 05/28/21 05/29/21 05/29/21 Range/Units 07:02 05:41 05:41 WBC 11.63 H (4.50-10.00) X 10*3/uL RBC 3.30 L (4.40-5.60) X 10*6/uL Hgb 7.5 L (13.0-17.0) g/dL Hct 25.7 L (39.6-50.0) % MCV 77.9 L (80.0-97.0) fL MCH 22.7 L (27.0-32.0) pg MCHC 29.2 L (32.0-37.0) g/dL RDW 19.9 H (11.5-14.5) % MPV 8.9 L (9.5-12.2) fL Absolute Nucleated RBC 0.07 H (0.00-0.00) X 10*3/uL Lymphocytes # 16.45 H (0.90-5.00) X 10*3/uL NRBC/100 WBC Diff 0.6 H (0.0-0.0) /100 WBCS BUN/Creatinine Ratio 21.67 H (12.00-20.00) Ratio Calcium 8.4 L (8.7-10.3) mg/dL AST 13 L (14-35) U/L Total Protein 5.1 L (6.2-8.2) g/dL Albumin 3.30 L (3.80-4.90) g/dL
[2021-05-29] MEDS: SODIUM FERRIC GLUCONAT-SUCROSE 125 MG in SODIUM CHLORIDE 0.9% 100 ML IVPB SCH (23:41)
[2021-05-30] MEDS: TIOTROPIUM 2.5 MCG INHALER INHALATION SCH (07:45)
[2021-05-30] MEDS: ALBUTEROL HFA INHALER INHALATION PRN ×2 (07:45→11:18)
[2021-05-30] MEDS: SYMBICORT 80-4.5 MCG INHALER INHALATION SCH (07:45)
--- NOTE | 2021-05-30 08:24 | US ---
EXAMINATION TYPE: US kidneys/renal and bladder DATE OF EXAM: 05/30/2021 COMPARISON: 05/04/2021 CLINICAL HISTORY: 60-year-old male with GI and bacteremia. Acute Lymphocytic Leukemia, pneumonia, UTI , renal infection. TECHNIQUE: Multiple sonographic images of the kidneys and bladder are obtained. FINDINGS: EXAM MEASUREMENTS: Right Kidney: 11.1 x 5.1 x 3.5 cm Left Kidney: 12.1 x 3.8 x 5.1 cm Post Void Residual Volume: not assessed on inpatient Right Kidney: inferior pole solid, oval mass seen adjacent to the cortex = 1.3 x 1.1 x 0.6cm and is i soechoic to renal cortex (measured at 1.6 x 1.3 cm on 05/04/2021) Left Kidney: mild hydronephrosis is noted Bladder: appears wnl Bilateral Jets seen: yes Nitroglycerin Supervisor notes: Incidental findings: small amount of ascites seen near liver and spleen; left pleu ral effusion is also seen; enlarged spleen is imaged = 19.8 x 19.3cm. IMPRESSION: 1. Interval development of mild left-sided hydronephrosis. 2. Known pararenal soft tissue deposit on the right currently measuring 1.3 cm versus 1.6 cm on 2020. 3. Mild abdominal ascites, small left pleural effusion. 4. Marked splenomegaly at 19.8 cm redemonstrated.
[2021-05-30 08:26] VITALS: BP 136/78; PULSE 72; TEMP 97.9
[2021-05-30] MEDS: SODIUM FERRIC GLUCONAT-SUCROSE 125 MG in SODIUM CHLORIDE 0.9% 100 ML IVPB SCH (08:39)
[2021-05-30] MEDS: HEPARIN SODIUM,PORCINE/PF 5,000 UNIT/0.5 ML SYRINGE SQ SCH (08:40)
[2021-05-30] MEDS: SODIUM BICARBONATE TAB 650 MG TAB PO SCH (08:40)
[2021-05-30] MEDS: PANTOPRAZOLE 40 MG TABLET PO SCH (08:40)
[2021-05-30] MEDS: AZITHROMYCIN 500 MG TAB PO SCH (08:40)
[2021-05-30] MEDS: predniSONE 20 MG TAB PO SCH (08:40)
[2021-05-30] MEDS: PARoxetine 20 MG TAB PO SCH (08:40)
[2021-05-30] MEDS: SODIUM CHLORIDE 0.9% 1,000 ML IV SCH (08:51)
[2021-05-30 09:07] VITALS: RESP 16
--- NOTE | 2021-05-30 13:47 | PN ---
PROGRESS NOTE DATE OF SERVICE: 05/30/2021 REASON FOR FOLLOWUP: Proteus mirabilis urinary tract infection and bacteremia. INTERVAL HISTORY: The patient was seen on rounds this morning. The patient has been afebrile. The patient overall is feeling better, breathing comfortably. No chest pain. No cough. No abdominal pain or diarrhea. PHYSICAL EXAMINATION: Blood pressure 133/78 with a pulse of 72, temperature 97.9. He is 95% on 3 L nasal cannula. GENERAL DESCRIPTION: General description is a middle-aged male lying in bed in no distress. RESPIRATORY SYSTEM: Unlabored breathing. Clear to auscultation anteriorly. HEART: S1, S2. Regular rate and rhythm. ABDOMEN: Soft. No tenderness. LABS: No new labs have been obtained today. Ultrasound shows mild hydronephrosis. DIAGNOSTIC IMPRESSION AND PLAN: Patient with Proteus mirabilis bacteremia secondary to urinary tract infection, finishing therapy with 12 days of oral Ceftin. Plan of care was discussed with the admitting physician. Continue supportive care. MMODL / IJN: [id number] /
--- NOTE | 2021-05-30 19:47 | P.DS ---
Providers Date of admission: 05/24/21 09:41 Expected date of discharge: 05/30/21 Attending physician: Kathryn Downs MD Consults: 05/23/21 19:18 Consult Physician Routine Consulting Provider: Damian Villasenor Consult Reason/Comments: suicide ideation, depressed mood, frequent hospitalization Do you want consulting provider notified?: Already Contacted 05/29/21 14:38 Consult Physician Routine Consulting Provider: Crystal Maher Consult Reason/Comments: proteous bacteremia Do you want consulting provider notified?: Yes Primary care physician: Mikhail Masters Hospital Course: Discharge Diagnosis: Proteus urinary tract infection with Proteus bacteremia, present on admission Severe sepsis Pneumonia, present on admission CLL COPD with acute exacerbation KEERTHI, resolved Metabolic acidosis Hospital Course: Patient is a 60-year-old male with a history of CLL, COPD not requiring home oxygen, lupus anticoagulant, and prior COVID-19 who presented to the hospital with complaints of shortness of breath and feelings of urinary retention. Patient had been discharged here on 05/05 after an admission for pasha hematuria with possible renal or extrarenal mass. In the ER this admission he was found to have urinary tract infection and possible pneumonia with severe sepsis and acute kidney injury. He was started on Rocephin and Zithromax. He was also given IV fluids. There was also concerns for acute COPD He was seen by psychiatry for depression and they recommended outpatient follow-up. He ultimately came back with Proteus urinary tract infection and Proteus bacteremia. Chest x-ray continued to demonstrate a right upper lobe infiltrate as well as left lower lobe atelectasis or infiltrate throughout his hospital stay. He was seen by infectious disease who recommended 2 weeks of oral antibiotics. Imaging: Chest x-ray bilateral infiltrate Renal ultrasound: Mild left-sided high or low, no pararenal soft tissue deposition on the right now 1.3 cm versus prior 1.6, mild abdominal ascites, marked splenomegaly Follow-up: Dr. Masters in 2-3 days, Dr. Adair of urology in 2 weeks, Ceftin 12 additional days, prednisone 20 mg for 3 additional days. Patient seen and examined at bedside. He is feeling much better and is ready to go home. He feels too tired to go back to work yet. He denies any chest pain, shortness breath, nausea, vomiting, or additional I'll bowel movement. He understands the importance of follow-up. Vital signs reviewed and stable. General: non toxic, no distress, appears at stated age Derm: warm, dry Head: atraumatic, normocephalic, symmetric Eyes: EOMI, no lid lag, anicteric sclera Mouth: no lip lesion, mucus membranes moist, poor dentition Cardiovascular: S1S2 reg, no murmur, positive posterior tibial pulse bilateral, Lungs: Worse breath sounds bilateral, no rhonchi, no rales , no accessory muscle use Abdominal: soft, nontender to palpation, no guarding, no appreciable organomegaly Ext: no gross muscle atrophy, no edema, no contractures Neuro: CN II-XI grossly intact, no focal neuro deficits Psych: Alert, oriented, appropriate affect A total of 32 minutes of time were spent preparing this complex discharge summary . Patient Condition at Discharge: Fair Plan - Discharge Summary Discharge Rx Participant: No New Discharge Prescriptions: New Cefuroxime Axetil [Ceftin] 500 mg PO BID 12 Days #24 tab predniSONE [Deltasone] 20 mg PO DAILY #3 tab Continue Calcium Carbonate [Tums] 1,000 mg PO TID PRN PRN Reason: Heartburn Tiotropium [place] [Spiriva] 1 cap INHALATION RT-DAILY PARoxetine [Paxil] 20 mg PO DAILY Albuterol Sulfate [Proair Hfa] 2 puff INHALATION RT-QID PRN PRN Reason: Shortness Of Breath Omeprazole 40 mg PO DAILY Fluticasone/Salmeterol [Advair 250-50 Diskus] 1 puff INHALATION RT-BID Cyclobenzaprine [Flexeril] 10 mg PO HS Aspirin 325 mg PO DAILY #30 tab Cholecalciferol [Vitamin D3 (25 Mcg = 1000 Iu)] 25 mcg PO DAILY #30 tablet Glucosam/Reynold-Msm1/C/Lorenzo/Bosw [Glucosamine-Chondroitin Tablet] 2 tab PO DAILY Cyanocobalamin (Vitamin B-12) [Vitamin B-12] 1,000 mcg PO DAILY Multivitamins, Thera [Multivitamin (formulary)] 1 tab PO DAILY Inulin/Chromium Picolinate [Fiber Gummies Chew] 1 tab PO DAILY Diclofenac Sodium Gel [Voltaren Gel] 1 applic TOPICAL QID PRN PRN Reason: Pain Ferrous Sulfate [Iron (65 MG Elemental)] 325 mg PO DAILY #0 Ascorbic Acid [Vitamin C] 1,000 mg PO DAILY Discharge Medication List Albuterol Sulfate [Proair Hfa] 2 puff INHALATION RT-QID PRN 09/23/20 [History] Calcium Carbonate [Tums] 1,000 mg PO TID PRN 09/23/20 [History] Cyclobenzaprine [Flexeril] 10 mg PO HS 09/23/20 [History] Fluticasone/Salmeterol [Advair 250-50 Diskus] 1 puff INHALATION RT-BID 09/23/20 [History] Omeprazole 40 mg PO DAILY 09/23/20 [History] PARoxetine [Paxil] 20 mg PO DAILY 09/23/20 [History] Tiotropium [place] [Spiriva] 1 cap INHALATION RT-DAILY 09/23/20 [History] Aspirin 325 mg PO DAILY #30 tab 09/27/20 [Rx] Cholecalciferol [Vitamin D3 (25 Mcg = 1000 Iu)] 25 mcg PO DAILY #30 tablet 10/27/20 [Rx] Ascorbic Acid [Vitamin C] 1,000 mg PO DAILY 04/24/21 [History] Cyanocobalamin (Vitamin B-12) [Vitamin B-12] 1,000 mcg PO DAILY 04/24/21 [History] Diclofenac Sodium Gel [Voltaren Gel] 1 applic TOPICAL QID PRN 04/24/21 [History] Glucosam/Reynold-Msm1/C/Lorenzo/Bosw [Glucosamine-Chondroitin Tablet] 2 tab PO DAILY 04/24/21 [History] Inulin/Chromium Picolinate [Fiber Gummies Chew] 1 tab PO DAILY 04/24/21 [History] Multivitamins, Thera [Multivitamin (formulary)] 1 tab PO DAILY 04/24/21 [History] Cefuroxime Axetil [Ceftin] 500 mg PO BID 12 Days #24 tab 05/30/21 [Rx] Ferrous Sulfate [Iron (65 MG Elemental)] 325 mg PO DAILY #0 05/30/21 [Rx] predniSONE [Deltasone] 20 mg PO DAILY #3 tab 05/30/21 [Rx] Follow up Appointment(s)/Referral(s): Mikhail Masters MD [Primary Care Provider] - 06/02/21 8:45 am Jeff Adair MD [STAFF PHYSICIAN] - 06/23/21 11:20 am Patient Instructions/Handouts: Urinary Tract Infection in Men (DC), Pneumonia (DC) Activity/Diet/Wound Care/Special Instructions: Activity: as tolerated Diet: Regular Special Instructions: ensure you take antibiotics as prescribed Please follow-up on renal lesion Discharge/Stand Alone Forms: Work/Release Restrictions Form Discharge Disposition: HOME SELF-CARE
== END 2021-05-30 11:44 | disposition home or self-care (01) | DRG 871 ==
LOC: EC 21:38 → 6NMEDSUR 23:47 → OBSVTOIN 05-24 09:41
PROVIDERS: ADMIT Internal Medicine; ATTEND Internal Medicine
DX: A41.59 Other Gram-negative sepsis (principal); J18.9 Pneumonia, unspecified organism; C91.10 Chronic lymphocytic leukemia of B-cell type not having achieved remission; D68.62 Lupus anticoagulant syndrome; E87.2 Acidosis; N39.0 Urinary tract infection, site not specified; R45.851 Suicidal ideations; N17.9 Acute kidney failure, unspecified; J44.0 Chronic obstructive pulmonary disease with (acute) lower respiratory infection; J44.1 Chronic obstructive pulmonary disease with (acute) exacerbation; R18.8 Other ascites; Z87.891 Personal history of nicotine dependence; R65.20 Severe sepsis without septic shock; Z79.899 Other long term (current) drug therapy; Z20.822 Contact with and (suspected) exposure to COVID-19; Z79.82 Long term (current) use of aspirin; D50.9 Iron deficiency anemia, unspecified; F32.9 Major depressive disorder, single episode, unspecified; F41.9 Anxiety disorder, unspecified; N28.89 Other specified disorders of kidney and ureter; R31.0 Gross hematuria; R16.1 Splenomegaly, not elsewhere classified; F10.21 Alcohol dependence, in remission; F19.11 Other psychoactive substance abuse, in remission
CPT/HCPCS: 36415; 71045; 71046; 76770; 80048; 80053; 81001; 82803; 83540; 83550; 83605; 83615; 83735; 84100; 85025; 85027; 85610; 85730; 86140; 87040; 87070; 87077; 87086; 87186; 87205; 87635; 93005; 94640; 94760; 96361; 96374; 99285

== ENCOUNTER 2021-07-18 19:00 | Emergency (ER) | payer BC, OTHER ==
[2021-07-18 19:57] VITALS: TEMP 98.2
[2021-07-18 20:57] LABS: Appearance,Urine Clear (Clear); Bilirubin,Urine Negative (Negative); Blood,Urine Negative (Negative); Color,Urine Yellow; Glucose,Urine (UA) Negative (Negative); Ketones,Urine Negative (Negative); Leukocyte Esterase,Urine Negative (Negative); Nitrite,Urine Negative (Negative); Protein,Urine Trace (Negative); Specific Gravity,Urine 1.012 (1.001-1.035); Urobilinogen,Urine <2.0 mg/dL (<2.0)
[2021-07-18 20:59] LABS: Anisocytosis Slight; HCT 33.6 % (39.0-53.0); HGB 10.6 gm/dL (13.0-17.5); Hypochromasia Slight; MCH 24.1 pg (25.0-35.0); MCHC 31.5 g/dL (31.0-37.0); MCV 76.5 fL (80.0-100.0); Microcytosis Slight; Platelet Count 270 k/uL (150-450); RDW 16.9 % (11.5-15.5); WBC 7.7 k/uL (3.8-10.6)
[2021-07-18 21:24] LABS: Prothrombin Time 28.6 sec (9.0-12.0)
[2021-07-18 21:25] LABS: Albumin 4.2 g/dL (3.5-5.0); Calcium 10.1 mg/dL (8.4-10.2); Potassium 3.9 mmol/L (3.5-5.1); Total Bilirubin 0.8 mg/dL (0.2-1.3); Total Protein 7.3 g/dL (6.3-8.2)
--- NOTE | 2021-07-18 21:27 | ED ---
General Adult HPI - General Chief complaint: Abdominal Pain Stated complaint: abd pain Time Seen by Provider: 07/18/21 19:59 Source: patient, RN notes reviewed, old records reviewed Mode of arrival: ambulatory Limitations: no limitations - History of Present Illness Initial comments: 61-year-old male presenting with abdominal pain. Patient states over the past several weeks he's noticed increased abdominal distention. He states he has a bowel movement every 3 days which is normal for him. No vomiting. No fevers. He does have leukemia and COPD. - Related Data Home Medications Medication Instructions Recorded Confirmed Albuterol Sulfate [Proair Hfa] 2 puff INHALATION RT-QID PRN 09/23/20 07/18/21 Calcium Carbonate [Tums] 1,000 mg PO TID PRN 09/23/20 07/18/21 Cyclobenzaprine [Flexeril] 10 mg PO HS 09/23/20 07/18/21 Fluticasone/Salmeterol [Advair 1 puff INHALATION RT-BID 09/23/20 07/18/21 250-50 Diskus] Omeprazole 40 mg PO DAILY 09/23/20 07/18/21 PARoxetine [Paxil] 20 mg PO DAILY 09/23/20 07/18/21 Tiotropium [place] [Spiriva] 1 cap INHALATION RT-DAILY 09/23/20 07/18/21 Ascorbic Acid [Vitamin C] 1,000 mg PO DAILY 04/24/21 07/18/21 Cyanocobalamin (Vitamin B-12) 1,000 mcg PO DAILY 04/24/21 07/18/21 [Vitamin B-12] Diclofenac Sodium Gel [Voltaren 1 applic TOPICAL QID PRN 04/24/21 07/18/21 Gel] Glucosam/Reynold-Msm1/C/Lorenzo/Bosw 2 tab PO DAILY 04/24/21 07/18/21 [Glucosamine-Chondroitin Tablet] Inulin/Chromium Picolinate [Fiber 1 tab PO DAILY 04/24/21 07/18/21 Gummies Chew] Multivitamins, Thera [Multivitamin 1 tab PO DAILY 04/24/21 07/18/21 (formulary)] Albuterol Nebulized [Ventolin 2.5 mg INHALATION RT-QID PRN 07/18/21 07/18/21 Nebulized] Ferrous Sulfate [Iron (65 MG 325 mg PO Q48H 07/18/21 07/18/21 Elemental)] Gabapentin [Neurontin] 100 mg PO HS 07/18/21 07/18/21 Previous Rx's Medication Instructions Recorded Aspirin 325 mg PO DAILY #30 tab 09/27/20 Cholecalciferol [Vitamin D3 (25 25 mcg PO DAILY #30 tablet 10/27/20 Mcg = 1000 Iu)] Allergies Allergy/AdvReac Type Severity Reaction Status Date / Time Penicillins Allergy Unknown Verified 07/18/21 19:57 Childhood Review of Systems ROS Statement: Those systems with pertinent positive or pertinent negative responses have been documented in the HPI. ROS Other: All systems not noted in ROS Statement are negative. Past Medical History Past Medical History: Cancer, COPD Additional Past Medical History / Comment(s): Chronic lymphocytic leukemia, emphysema, plueral effusion 09/23/2020, covid 10/2020, lupus anticoagulant History of Any Multi-Drug Resistant Organisms: None Reported Past Surgical History: Appendectomy, Orthopedic Surgery Additional Past Surgical History / Comment(s): rt knee Past Anesthesia/Blood Transfusion Reactions: No Reported Reaction Past Psychological History: Anxiety, Depression Smoking Status: Former smoker Past Alcohol Use History: None Reported Past Drug Use History: Marijuana - Past Family History Family Family Medical History: No Reported History General Exam Limitations: no limitations General appearance: alert, in no apparent distress Head exam: Present: atraumatic, normocephalic Eye exam: Present: normal appearance, PERRL ENT exam: Present: normal exam Neck exam: Present: normal inspection. Absent: tenderness, meningismus Respiratory exam: Present: normal lung sounds bilaterally. Absent: respiratory distress, wheezes Cardiovascular Exam: Present: regular rate, normal rhythm GI/Abdominal exam: Present: soft, distended, tenderness. Absent: guarding Extremities exam: Present: normal inspection, normal capillary refill. Absent: pedal edema Neurological exam: Present: alert, oriented X3, CN II-XII intact. Absent: motor sensory deficit Psychiatric exam: Present: normal affect, normal mood Skin exam: Present: warm, dry, intact. Absent: cyanosis, diaphoretic Course Vital Signs 07/18/21 19:53 Temperature 98.2 F Pulse Rate 92 Respiratory 22 Rate Blood Pressure 115/68 O2 Sat by Pulse 97 Oximetry Medical Decision Making - Medical Decision Making 61-year-old male who does follow with Dr. Faulkner for leukemia presents with abdominal pain and distention. Patient has minimal tenderness. He has stable vitals. Workup was initiated, normal white blood cell count, hemoglobin is improved from prior attempt 0.6. He has a mild elevation in creatinine at 1.9 which she has had several times in the past. Urinalysis is negative. CT of the abdomen and chest showing lymphadenopathy and splenomegaly. He states that he has not been to see the campaign marketing manager or oncologist in several months. I did encourage this patient to arrange for more urgent follow-up. He states that he will call in the morning. Return parameters are discussed. - Lab Data Result diagrams: 07/18/21 20:50 07/18/21 20:50 Lab Results 07/18/21 07/18/21 07/18/21 Range/Units 20:50 20:50 20:50 WBC 7.7 (3.8-10.6) k/uL RBC 4.40 (4.30-5.90) m/uL Hgb 10.6 L (13.0-17.5) gm/dL Hct 33.6 L (39.0-53.0) % MCV 76.5 L (80.0-100.0) fL MCH 24.1 L (25.0-35.0) pg MCHC 31.5 (31.0-37.0) g/dL RDW 16.9 H (11.5-15.5) % Plt Count 270 (150-450) k/uL MPV 7.0 Neutrophils % (Manual) 48 % Lymphocytes % (Manual) 45 % Monocytes % (Manual) 6 % Eosinophils % (Manual) 1 % Neutrophils # (Manual) 3.70 (1.3-7.7) k/uL Lymphocytes # (Manual) 3.47 (1.0-4.8) k/uL Monocytes # (Manual) 0.46 (0-1.0) k/uL Eosinophils # (Manual) 0.08 (0-0.7) k/uL Nucleated RBCs 0 (0-0) /100 WBC Differential Comment Manual Slide Review Performed Hypochromasia Slight Poikilocytosis (manual Present Anisocytosis Slight Anisocytosis (manual) Present Microcytosis Slight Tear Drop Cells Present Ovalocytes Present PT 28.6 H (9.0-12.0) sec INR 3.0 H (<1.2) APTT 85.7 H (22.0-30.0) sec Sodium (137-145) mmol/L Potassium (3.5-5.1) mmol/L Chloride (98-107) mmol/L Carbon Dioxide (22-30) mmol/L Anion Gap mmol/L BUN (9-20) mg/dL Creatinine (0.66-1.25) mg/dL Est GFR (CKD-EPI)AfAm (>60 ml/min/1.73 sqM) Est GFR (CKD-EPI)NonAf (>60 ml/min/1.73 sqM) Glucose (74-99) mg/dL Plasma Lactic Acid Justin (0.7-2.0) mmol/L Calcium (8.4-10.2) mg/dL Total Bilirubin (0.2-1.3) mg/dL AST (17-59) U/L ALT (4-49) U/L Alkaline Phosphatase (38-126) U/L Total Protein (6.3-8.2) g/dL Albumin (3.5-5.0) g/dL Amylase (30-110) U/L Lipase (23-300) U/L Urine Color Yellow Urine Appearance Clear (Clear) Urine pH 6.0 (5.0-8.0) Ur Specific [place] 1.012 (1.001-1.035) Urine Protein Trace H (Negative) Urine Glucose (UA) Negative (Negative) Urine Ketones Negative (Negative) Urine Blood Negative (Negative) Urine Nitrite Negative (Negative) Urine Bilirubin Negative (Negative) Urine Urobilinogen <2.0 (<2.0) mg/dL Ur Leukocyte Esterase Negative (Negative) 07/18/21 07/18/21 Range/Units 20:50 20:50 WBC (3.8-10.6) k/uL RBC (4.30-5.90) m/uL Hgb (13.0-17.5) gm/dL Hct (39.0-53.0) % MCV (80.0-100.0) fL MCH (25.0-35.0) pg MCHC (31.0-37.0) g/dL RDW (11.5-15.5) % Plt Count (150-450) k/uL MPV Neutrophils % (Manual) % Lymphocytes % (Manual) % Monocytes % (Manual) % Eosinophils % (Manual) % Neutrophils # (Manual) (1.3-7.7) k/uL Lymphocytes # (Manual) (1.0-4.8) k/uL Monocytes # (Manual) (0-1.0) k/uL Eosinophils # (Manual) (0-0.7) k/uL Nucleated RBCs (0-0) /100 WBC Differential Comment Manual Slide Review Hypochromasia Poikilocytosis (manual Anisocytosis Anisocytosis (manual) Microcytosis Tear Drop Cells Ovalocytes PT (9.0-12.0) sec INR (<1.2) APTT (22.0-30.0) sec Sodium 140 (137-145) mmol/L Potassium 3.9 (3.5-5.1) mmol/L Chloride 96 L (98-107) mmol/L Carbon Dioxide 20 L (22-30) mmol/L Anion Gap 24 mmol/L BUN 28 H (9-20) mg/dL Creatinine 1.91 H (0.66-1.25) mg/dL Est GFR (CKD-EPI)AfAm 42 (>60 ml/min/1.73 sqM) Est GFR (CKD-EPI)NonAf 37 (>60 ml/min/1.73 sqM) Glucose 89 (74-99) mg/dL Plasma Lactic Acid Justin 0.8 (0.7-2.0) mmol/L Calcium 10.1 (8.4-10.2) mg/dL Total Bilirubin 0.8 (0.2-1.3) mg/dL AST 32 (17-59) U/L ALT 10 (4-49) U/L Alkaline Phosphatase 92 (38-126) U/L Total Protein 7.3 (6.3-8.2) g/dL Albumin 4.2 (3.5-5.0) g/dL Amylase 51 (30-110) U/L Lipase 119 (23-300) U/L Urine Color Urine Appearance (Clear) Urine pH (5.0-8.0) Ur Specific [place] (1.001-1.035) Urine Protein (Negative) Urine Glucose (UA) (Negative) Urine Ketones (Negative) Urine Blood (Negative) Urine Nitrite (Negative) Urine Bilirubin (Negative) Urine Urobilinogen (<2.0) mg/dL Ur Leukocyte Esterase (Negative) Disposition Clinical Impression: Chronic lymphocytic leukemia not having achieved remission, Lymphadenopathy, Splenomegaly Disposition: HOME SELF-CARE Condition: Fair Instructions (If sedation given, give patient instructions): Lymphadenopathy (ED), Abdominal Pain (ED) Is patient prescribed a controlled substance at d/c from ED?: No Referrals: Mikhail Masters MD [Primary Care Provider] - 1-2 days Teri Chen MD [STAFF PHYSICIAN] - 1-2 days Time of Disposition: 22:45
[2021-07-18 21:35] LABS: Partial Thromboplastin Time 85.7 sec (22.0-30.0)
--- NOTE | 2021-07-18 22:07 | CT ---
EXAMINATION TYPE: CT ChestAbdPelvis wo con DATE OF EXAM: 07/18/2021 INDICATION: Cough, abdominal pain, bloating and nausea. COMPARISON: 05/04/2021 CT DLP: 450.2 mGycm CONTRAST: Performed without Oral Contrast. TECHNIQUE: Axial images at 5 mm thick sections. Reconstructed images in the coronal plane. Delayed images through the kidneys. FINDINGS: CT CHEST: Portion of the thyroid visualized is normal. No suspicious lung nodules or focal infiltrates are present. There may be a 1.2 cm subcarinal lymph node present. Small aortopulmonic window and pretracheal space lymphadenopathy appears to be present. Multiple small lymph nodes are in the axillary regions. Small left pleural effusion is present. There appears to be large posterior lymph node in the subcari nal space. Additional workup is recommended. The ascending aorta diameter at the level of the main pulmonary artery is 3.8 cm. The main pulmonary artery diameter at the bifurcation is 2.[address] ABDOMEN: Liver: Normal Spleen: There is marked splenomegaly. Pancreas: Normal Adrenal glands: The adrenal glands are normal. Gallbladder: Normal Kidneys: No masses are evident. No hydronephrosis is present. No cysts are present. No renal stone s are identified. Aorta: Vascular calcification is within the aorta. . There appear to multiple scattered mesenteric l ymph nodes present. Inferior vena cava: Normal. CT PELVIS: Loops of bowel within the abdomen and pelvis are normal. Exam is limited due to lack of oral cont rast Appendix: Not identified. No obvious dilated tubular structures are evident Urinary bladder: Normal. Genitourinary structures: Uterus and adnexa appear normal Osseous structures: No suspicious lytic or sclerotic lesions. IMPRESSIONS: 1. Extensive lymphadenopathy present especially noted through the retrocrural region. There is marked splenomegaly. Workup for lymphoma is recommended. 2. Small left pleural effusion. 3. Exam is limited due to lack of intravenous and oral contrast.
[2021-07-18 22:16] LABS: Eosinophils # (M) 0.08 k/uL (0-0.7); Lymphocytes # (M) 3.47 k/uL (1.0-4.8); Monocytes # (M) 0.46 k/uL (0-1.0); Neutrophils % (M) 48 %; Nucleated Red Blood Cells 0 /100 WBC (0-0); Total Cells Counted 100
[2021-07-18 22:18] LABS: Anisocytosis (M) Present; Ovalocytes Present; Poikilocytosis (M) Present; Tear Drop Cells Present
[2021-07-18 23:17] VITALS: BP 108/74; PULSE 97; RESP 16
== END 2021-07-18 23:15 | disposition home or self-care (01) ==
LOC: EC 19:00
DX: C91.10 Chronic lymphocytic leukemia of B-cell type not having achieved remission (principal); R16.1 Splenomegaly, not elsewhere classified; R59.0 Localized enlarged lymph nodes; J44.9 Chronic obstructive pulmonary disease, unspecified; D68.62 Lupus anticoagulant syndrome; F41.9 Anxiety disorder, unspecified; F32.9 Major depressive disorder, single episode, unspecified; F12.90 Cannabis use, unspecified, uncomplicated; Z79.82 Long term (current) use of aspirin; Z88.0 Allergy status to penicillin; Z90.49 Acquired absence of other specified parts of digestive tract; Z87.891 Personal history of nicotine dependence
CPT/HCPCS: 36415; 71250; 74176; 80053; 81003; 82150; 83605; 83690; 85025; 85610; 85730; 99284

== ENCOUNTER 2021-07-21 16:50 | Observation (INO) | payer BC, OTHER ==
[2021-07-21] MEDS ORDERED: IPRATROPIUM-ALBUTEROL 3 ML NEB INHALATION STA (19:59)
--- NOTE | 2021-07-21 20:05 | ED ---
General Adult HPI - General Chief complaint: Shortness of Breath Stated complaint: MIRIAM, Weakness, CA PT Time Seen by Provider: 07/21/21 19:44 Source: patient, RN notes reviewed, old records reviewed Mode of arrival: wheelchair Limitations: no limitations - History of Present Illness Initial comments: 61-year-old male gentleman presents to the emergency room with complaints of cough and fatigue for the past 3 days. Patient states that he was in the em ergency room 3 days ago and seen for abdominal pain. He states he did a CAT scan at that time and nothing was found. 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 He states he has an appointment with them on Saturday morning with the nurse practitioner. He states he is coming back to the emergency room with shortness of breath for 3 days. He states he used his albuterol at home with no relief. He is concerned for Covid virus. He states he did get 1 vaccine but just the first dose he has not had second dose yet. He is satting 98% on room air, denies any fevers at home. He does have a history of leukemia and COPD. He is no longer smoking. -: days(s) (3) Location: chest, abdomen Severity scale (1-10): 8 Consistency: intermittent Improves with: rest Worsens with: other (cough) Associated Symptoms: cough, malaise, shortness of breath Treatments Prior to Arrival: other (albuterol 1600) - Related Data Home Medications Medication Instructions Recorded Confirmed Albuterol Sulfate [Proair Hfa] 2 puff INHALATION RT-Q6H PRN 09/23/20 07/21/21 Cyclobenzaprine [Flexeril] 10 mg PO HS PRN 09/23/20 07/21/21 Fluticasone/Salmeterol [Advair 1 puff INHALATION RT-BID 09/23/20 07/21/21 250-50 Diskus] Omeprazole 40 mg PO DAILY 09/23/20 07/21/21 PARoxetine [Paxil] 20 mg PO HS 09/23/20 07/21/21 Tiotropium [place] [Spiriva] 1 cap INHALATION RT-DAILY 09/23/20 07/21/21 Ascorbic Acid [Vitamin C] 1,000 mg PO DAILY 04/24/21 07/21/21 Inulin/Chromium Picolinate [Fiber 4 tab PO DAILY 04/24/21 07/21/21 Gummies Chew] Multivitamins, Thera [Multivitamin 1 tab PO DAILY 04/24/21 07/21/21 (formulary)] Albuterol Nebulized [Ventolin 2.5 mg INHALATION RT-QID PRN 07/18/21 07/21/21 Nebulized] Ferrous Sulfate [Iron (65 MG 325 mg PO Q48H 07/18/21 07/21/21 Elemental)] Gabapentin [Neurontin] 100 mg PO HS 07/18/21 07/21/21 [place]-3 Fatty Acids/Fish Oil [Fish 1 cap PO DAILY 07/21/21 07/21/21 Oil 1,000 mg Softgel] Vitamin B Complex 1 cap PO DAILY 07/21/21 07/21/21 Previous Rx's Medication Instructions Recorded Aspirin 325 mg PO DAILY #30 tab 09/27/20 Cholecalciferol [Vitamin D3 (25 25 mcg PO DAILY #30 tablet 10/27/20 Mcg = 1000 Iu)] Allergies Allergy/AdvReac Type Severity Reaction Status Date / Time Penicillins Allergy Unknown Verified 07/21/21 22:20 Childhood Review of Systems ROS Statement: Those systems with pertinent positive or pertinent negative responses have been documented in the HPI. ROS Other: All systems not noted in ROS Statement are negative. Past Medical History Past Medical History: Cancer, COPD Additional Past Medical History / Comment(s): Chronic lymphocytic leukemia, emphysema, plueral effusion 09/23/2020, covid 10/2020, lupus anticoagulant History of Any Multi-Drug Resistant Organisms: None Reported Past Surgical History: Appendectomy, Orthopedic Surgery Additional Past Surgical History / Comment(s): rt knee Past Anesthesia/Blood Transfusion Reactions: No Reported Reaction Past Psychological History: Anxiety, Depression Smoking Status: Former smoker Past Alcohol Use History: None Reported Past Drug Use History: Marijuana - Past Family History Family Family Medical History: No Reported History General Exam Limitations: no limitations General appearance: alert, in no apparent distress Head exam: Present: atraumatic, normocephalic, normal inspection Eye exam: Present: normal appearance, PERRL, EOMI. Absent: scleral icterus, conjunctival injection, periorbital swelling ENT exam: Present: normal exam, mucous membranes moist, other Neck exam: Present: normal inspection, full ROM. Absent: tenderness, meningismus, lymphadenopathy, thyromegaly Respiratory exam: Present: wheezes. Absent: rhonchi, stridor, chest wall tenderness, accessory muscle use Cardiovascular Exam: Present: regular rate, normal rhythm. Absent: JVD GI/Abdominal exam: Present: soft, distended, normal bowel sounds. Absent: tenderness, guarding, rebound, rigid Extremities exam: Present: normal inspection, full ROM, normal capillary refill. Absent: tenderness, pedal edema, joint swelling, calf tenderness Back exam: Present: normal inspection. Absent: tenderness, CVA tenderness (R), CVA tenderness (L), rash noted Neurological exam: Present: alert, oriented X3 Psychiatric exam: Present: normal affect, normal mood Skin exam: Present: warm, dry, intact, normal color. Absent: rash, cyanosis, diaphoretic, petechiae, pallor Course Vital Signs 07/21/21 07/21/21 07/21/21 17:53 20:22 20:23 Temperature 96.9 F L Pulse Rate 71 64 Respiratory 18 28 H Rate Blood Pressure 99/63 O2 Sat by Pulse 98 Oximetry 07/21/21 07/21/21 07/21/21 20:29 21:00 21:24 Temperature Pulse Rate 66 91 Respiratory 22 Rate Blood Pressure 102/54 O2 Sat by Pulse 91 L 95 Oximetry EKG Findings - EKG Results: EKG: sinus rhythm (Ventricular rate 90, UT interval 0.172, QRS 0.94, QTC 0.440) Medical Decision Making - Medical Decision Making Patient presents to the emergency room with 3 days of difficulty in breathing. He was seen in the emergency room on July 18 for abdominal pain. He is concerned for exposure to coronavirus. There is no evidence of leukocytosis. His d-dimer is elevated at 31.51 and his coronavirus swab is negative. His chest x-ray shows no pneumothorax or pleural effusion. His hemoglobin is stable. His BUN and creatinine are elevated at 33 and 2.06, he states he has had elevation in the past. Due to his kidney function unable to do CT angiogram of the chest to rule out pulmonary embolism. Patient was started on heparin and admitted to the hospital. Case discussed with Dr. Wong. - Lab Data Result diagrams: 07/21/21 20:30 07/21/21 20:30 Lab Results 07/21/21 07/21/21 07/21/21 Range/Units 19:37 20:30 20:30 WBC 8.2 (3.8-10.6) k/uL RBC 4.37 (4.30-5.90) m/uL Hgb 10.4 L (13.0-17.5) gm/dL Hct 33.2 L (39.0-53.0) % MCV 75.9 L (80.0-100.0) fL MCH 23.8 L (25.0-35.0) pg MCHC 31.4 (31.0-37.0) g/dL RDW 17.1 H (11.5-15.5) % Plt Count 284 (150-450) k/uL MPV 7.2 Neutrophils % (Manual) 57 % Band Neuts % (Manual) 1 % Lymphocytes % (Manual) 32 % Monocytes % (Manual) 8 % Eosinophils % (Manual) 2 % Metamyelocytes % 2 % Myelocytes % 1 % Neutrophils # (Manual) 4.70 (1.3-7.7) k/uL Lymphocytes # (Manual) 2.62 (1.0-4.8) k/uL Monocytes # (Manual) 0.66 (0-1.0) k/uL Eosinophils # (Manual) 0.16 (0-0.7) k/uL Metamyelocytes # (Man) 0.16 H (0) k/uL Myelocytes # (Manual) 0.08 H (0) k/uL Nucleated RBCs 0 (0-0) /100 WBC Manual Slide Review Performed Hypochromasia Slight Anisocytosis Slight Microcytosis Slight Rouleaux Present D-Dimer 31.51 H (<0.60) mg/L FEU Sodium (137-145) mmol/L Potassium (3.5-5.1) mmol/L Chloride (98-107) mmol/L Carbon Dioxide (22-30) mmol/L Anion Gap mmol/L BUN (9-20) mg/dL Creatinine (0.66-1.25) mg/dL Est GFR (CKD-EPI)AfAm (>60 ml/min/1.73 sqM) Est GFR (CKD-EPI)NonAf (>60 ml/min/1.73 sqM) Glucose (74-99) mg/dL Calcium (8.4-10.2) mg/dL Magnesium (1.6-2.3) mg/dL Total Bilirubin (0.2-1.3) mg/dL AST (17-59) U/L ALT (4-49) U/L Alkaline Phosphatase (38-126) U/L Troponin I (0.000-0.034) ng/mL Total Protein (6.3-8.2) g/dL Albumin (3.5-5.0) g/dL Coronavirus (PCR) Not Detected (Not Detectd) 07/21/21 07/21/21 Range/Units 20:30 20:30 WBC (3.8-10.6) k/uL RBC (4.30-5.90) m/uL Hgb (13.0-17.5) gm/dL Hct (39.0-53.0) % MCV (80.0-100.0) fL MCH (25.0-35.0) pg MCHC (31.0-37.0) g/dL RDW (11.5-15.5) % Plt Count (150-450) k/uL MPV Neutrophils % (Manual) % Band Neuts % (Manual) % Lymphocytes % (Manual) % Monocytes % (Manual) % Eosinophils % (Manual) % Metamyelocytes % % Myelocytes % % Neutrophils # (Manual) (1.3-7.7) k/uL Lymphocytes # (Manual) (1.0-4.8) k/uL Monocytes # (Manual) (0-1.0) k/uL Eosinophils # (Manual) (0-0.7) k/uL Metamyelocytes # (Man) (0) k/uL Myelocytes # (Manual) (0) k/uL Nucleated RBCs (0-0) /100 WBC Manual Slide Review Hypochromasia Anisocytosis Microcytosis Rouleaux D-Dimer (<0.60) mg/L FEU Sodium 136 L (137-145) mmol/L Potassium 4.1 (3.5-5.1) mmol/L Chloride 103 (98-107) mmol/L Carbon Dioxide 24 (22-30) mmol/L Anion Gap 9 mmol/L BUN 33 H (9-20) mg/dL Creatinine 2.06 H (0.66-1.25) mg/dL Est GFR (CKD-EPI)AfAm 39 (>60 ml/min/1.73 sqM) Est GFR (CKD-EPI)NonAf 33 (>60 ml/min/1.73 sqM) Glucose 87 (74-99) mg/dL Calcium 12.7 H (8.4-10.2) mg/dL Magnesium 2.0 (1.6-2.3) mg/dL Total Bilirubin 1.0 (0.2-1.3) mg/dL AST 38 (17-59) U/L ALT 13 (4-49) U/L Alkaline Phosphatase 107 (38-126) U/L Troponin I <0.012 (0.000-0.034) ng/mL Total Protein 7.9 (6.3-8.2) g/dL Albumin 4.2 (3.5-5.0) g/dL Coronavirus (PCR) (Not Detectd) Disposition Clinical Impression: Elevated d-dimer Clinical Impression: (Ruled Out): KEERTHI (acute kidney injury) Disposition: ADMITTED IP TO THIS [facility] Decision Date: 07/21/21 Decision Time: 21:35
[2021-07-21 20:41] LABS: Anisocytosis Slight; HCT 33.2 % (39.0-53.0); HGB 10.4 gm/dL (13.0-17.5); Hypochromasia Slight; MCH 23.8 pg (25.0-35.0); MCHC 31.4 g/dL (31.0-37.0); MCV 75.9 fL (80.0-100.0); Mean Platelet Volume 7.2; Microcytosis Slight; Platelet Count 284 k/uL (150-450); RBC 4.37 m/uL (4.30-5.90); RDW 17.1 % (11.5-15.5); WBC 8.2 k/uL (3.8-10.6)
--- NOTE | 2021-07-21 20:52 | XR ---
EXAMINATION TYPE: XR chest 2V DATE OF EXAM: 07/21/2021 COMPARISON: 05/29/2021 and prior HISTORY: 61 years Male. STUDY INDICATION GIVEN: SOB . TECHNIQUE: Frontal lateral chest radiographs IMPRESSION: Patchy right lower lobe opacities are again demonstrated slightly increased in the interval may be re flective of chronic changes such as scarring, atelectasis and/or fibrotic changes though a developing pneumonic infiltrate cannot be entirely excluded. Hyperdense foci in the left perihilar region likely reflective of remote granulomatous disease simila r to prior studies. No pneumothorax or pleural effusion. The heart is normal in size. No acute osseous abnormalities.
[2021-07-21 21:17] LABS: Albumin 4.2 g/dL (3.5-5.0); Calcium 12.7 mg/dL (8.4-10.2); Potassium 4.1 mmol/L (3.5-5.1); Total Protein 7.9 g/dL (6.3-8.2)
[2021-07-21] MEDS ORDERED: HEPARIN SODIUM 1,000 UN/ML (10ML VL) IV PRN (21:32)
[2021-07-21] MEDS ORDERED: HEPARIN SODIUM 1,000 UN/ML (10ML VL) IV ONE (21:32)
[2021-07-21] MEDS ORDERED: NALOXONE 0.4 MG/ML 1 ML VIAL IV PRN (21:39)
[2021-07-21 21:51] LABS: Band Neutrophils % 1 %; Eosinophils # (M) 0.16 k/uL (0-0.7); Lymphocytes # (M) 2.62 k/uL (1.0-4.8); Metamyelocytes # (M) 0.16 k/uL (0); Metamyelocytes % 2 %; Monocytes # (M) 0.66 k/uL (0-1.0); Myelocytes # (M) 0.08 k/uL (0); Myelocytes % 1 %; Neutrophils % (M) 57 %; Nucleated Red Blood Cells 0 /100 WBC (0-0); Total Cells Counted 200
[2021-07-21 21:52] LABS: Rouleaux Present
[2021-07-21] MEDS: HEPARIN SOD,PORK IN 0.45% NACL 25,000 UNIT in 0.45% NACL 1 250ML.BAG IV SCH (22:10)
--- NOTE | 2021-07-21 22:46 | US ---
EXAMINATION TYPE: US venous doppler duplex LE BI DATE OF EXAM: 07/21/2021 9:59 PM COMPARISON: NONE CLINICAL HISTORY: pain. SOB. Elevated ddimer. SIDE PERFORMED: Bilateral TECHNIQUE: The lower extremity deep venous system is examined utilizing real time linear array sonog ruth with graded compression, doppler sonography and color-flow sonography. VESSELS IMAGED: Common Femoral Vein Deep Femoral Vein Greater Saphenous Vein * Femoral Vein Popliteal Vein Small Saphenous Vein * Proximal Calf Veins (* superficial vessels) Right Leg: Negative for DVT Left Leg: Negative for DVT IMPRESSION: No evidence of deep vein thrombosis in both legs.
[2021-07-22] MEDS ORDERED: predniSONE 20 MG TAB PO STA (01:22)
--- NOTE | 2021-07-22 01:24 | P.HPIM ---
History of Present Illness H&P Date: 07/21/21 The patient is a 58-year-old male with a PMH of CLL (not on treatment), lupus anticoagulant on aspirin, COPD, recently diagnosed renal mass, who presents to the emergency room with complaints of shortness breath. The patient has had numerous admissions to the hospital over the past 1 year for several complaints including shortness of breath and hematuria. The patient reports that his breathing has gradually been worsening over the past few days. He reports associated wheezing and cough productive of yellow-green phlegm. Denied fever or chills. He denied associated chest discomfort, or palpitations. Reports that he has not seen any physicians since his discharge from the hospital nearly 2 months ago. He denied lower extremity pain or swelling. He denied weight loss. In the emergency room, laboratory evaluation revealed a d-dimer of 31.51, hemoglobin 10.4, BUN 33, creatinine 2.06 (baseline 1.2), and calcium 12.7. A recent CT chest abdomen pelvis performed on 07/18/21 revealed extensive lymphadenopathy and splenomegaly with workup for lymphoma recommended. Review of systems: Pertinent positives and negatives as discussed in HPI, a complete review of systems was performed and all other systems are negative. Physical examination: General: Somewhat ill-appearing male, no distress, appears at stated age, normal weight Derm: no unusual rashes/lesions no unusual ecchymoses, warm, dry Head: atraumatic, normocephalic, symmetric Eyes: EOMI, no lid lag, anicteric sclera, pupils equal round reactive to light ENT: Nose and ears atraumatic, no thrush, no pharyngeal erythema Neck: No thyromegaly, no cervical lymphadenopathy, trachea midline, supple Mouth: no lip lesion, mucus membranes moist Cardiovascular: S1S2 reg, no murmur, positive posterior tibial pulse bilateral, no edema, capillary refill less than 2 seconds Lungs: CTA bilateral, no rhonchi, no rales , no accessory muscle use Abdominal: soft, nontender to palpation, no guarding, no appreciable organomegaly, normal bowel sounds Ext: no gross muscle atrophy, muscle strength 5 out of 5 in all 4 extremities grossly, no contractures, no calf tenderness noted Neuro: CN II-XI grossly intact, light touch intact all 4 extremities, finger to nose within normal limits, Psych: Alert, oriented, appropriate affect Assessment/plan Shortness of breath, suspected secondary to acute COPD exacerbation, cannot rule out PE -Lower extremity venous Doppler negative -Continue with heparin infusion -DuoNeb's -Oral prednisone for now -VQ scan in a.m. Renal mass, with poor follow-up -Obtain urology consult -An outpatient CT urogram was recommended though patient was lost to follow-up -Patient however no longer having hematuria at this time Acute kidney injury, on chronic kidney disease -Gentle IV hydration -Monitor BMP DVT prophylaxis -Heparin infusion The patient is admitted with an anticipated greater than 2 midnight stay for evaluation of shortness of breath CODE STATUS: Full Code Discussed with: patient Anticipated discharge date: 07/[address]: Home Past Medical History Past Medical History: Cancer, COPD Additional Past Medical History / Comment(s): Chronic lymphocytic leukemia, emphysema, plueral effusion 09/23/2020, covid 10/2020, lupus anticoagulant History of Any Multi-Drug Resistant Organisms: None Reported Past Surgical History: Appendectomy, Orthopedic Surgery Additional Past Surgical History / Comment(s): rt knee Past Anesthesia/Blood Transfusion Reactions: No Reported Reaction Past Psychological History: Anxiety, Depression Smoking Status: Former smoker Past Alcohol Use History: None Reported Past Drug Use History: Marijuana - Past Family History Family Family Medical History: Hypertension Medications and Allergies Home Medications Medication Instructions Recorded Confirmed Type Albuterol Sulfate [Proair Hfa] 2 puff INHALATION RT-Q6H PRN 09/23/20 07/21/21 History Cyclobenzaprine [Flexeril] 10 mg PO HS PRN 09/23/20 07/21/21 History Fluticasone/Salmeterol [Advair 1 puff INHALATION RT-BID 09/23/20 07/21/21 History 250-50 Diskus] Omeprazole 40 mg PO DAILY 09/23/20 07/21/21 History PARoxetine [Paxil] 20 mg PO HS 09/23/20 07/21/21 History Tiotropium [place] [Spiriva] 1 cap INHALATION RT-DAILY 09/23/20 07/21/21 History Aspirin 325 mg PO DAILY #30 tab 09/27/20 07/21/21 Rx Cholecalciferol [Vitamin D3 (25 25 mcg PO DAILY #30 tablet 10/27/20 07/21/21 Rx Mcg = 1000 Iu)] Ascorbic Acid [Vitamin C] 1,000 mg PO DAILY 04/24/21 07/21/21 History Inulin/Chromium Picolinate [Fiber 4 tab PO DAILY 04/24/21 07/21/21 History Gummies Chew] Multivitamins, Thera [Multivitamin 1 tab PO DAILY 04/24/21 07/21/21 History (formulary)] Albuterol Nebulized [Ventolin 2.5 mg INHALATION RT-QID PRN 07/18/21 07/21/21 History Nebulized] Ferrous Sulfate [Iron (65 MG 325 mg PO Q48H 07/18/21 07/21/21 History Elemental)] Gabapentin [Neurontin] 100 mg PO HS 07/18/21 07/21/21 History [place]-3 Fatty Acids/Fish Oil [Fish 1 cap PO DAILY 07/21/21 07/21/21 History Oil 1,000 mg Softgel] Vitamin B Complex 1 cap PO DAILY 07/21/21 07/21/21 History Allergies Allergy/AdvReac Type Severity Reaction Status Date / Time Penicillins Allergy Unknown Verified 07/21/21 22:20 Childhood Physical Exam Vitals: Vital Signs Temp Pulse Resp BP Pulse Ox 07/21/21 21:24 95 07/21/21 21:00 91 22 102/54 91 L 07/21/21 20:29 66 07/21/21 20:23 64 07/21/21 20:22 28 H 07/21/21 17:53 96.9 F L 71 18 99/63 98 Intake and Output 07/21/21 07/21/21 07/21/21 06:59 14:59 22:59 Other: Weight 72.575 kg Results CBC & Chem 7: 07/21/21 20:30 07/21/21 20:30 Labs: Abnormal Lab Results - Last 24 Hours (Table) 07/21/21 07/21/21 07/21/21 Range/Units 20:30 20:30 20:30 Hgb 10.4 L (13.0-17.5) gm/dL Hct 33.2 L (39.0-53.0) % MCV 75.9 L (80.0-100.0) fL MCH 23.8 L (25.0-35.0) pg RDW 17.1 H (11.5-15.5) % Metamyelocytes # (Man) 0.16 H (0) k/uL Myelocytes # (Manual) 0.08 H (0) k/uL D-Dimer 31.51 H (<0.60) mg/L FEU Sodium 136 L (137-145) mmol/L BUN 33 H (9-20) mg/dL Creatinine 2.06 H (0.66-1.25) mg/dL Calcium 12.7 H (8.4-10.2) mg/dL
[2021-07-22] MEDS ORDERED: LORazepam 1 MG TAB PO STA (01:30)
[2021-07-22] MEDS ORDERED: CYCLOBENZAPRINE 10 MG TAB PO PRN (01:30)
[2021-07-22] MEDS: SODIUM CHLORIDE 0.9% 1,000 ML IV SCH ×2 (02:24→15:39)
[2021-07-22] MEDS: IPRATROPIUM-ALBUTEROL 3 ML NEB INHALATION PRN (02:51)
[2021-07-22 06:42] LABS: Anisocytosis Slight; HCT 32.9 % (39.0-53.0); Hypochromasia Moderate; MCH 23.5 pg (25.0-35.0); MCHC 30.2 g/dL (31.0-37.0); MCV 77.7 fL (80.0-100.0); Mean Platelet Volume 7.1; Microcytosis Slight; Platelet Count 270 k/uL (150-450); RBC 4.24 m/uL (4.30-5.90); RDW 16.8 % (11.5-15.5)
[2021-07-22 06:52] LABS: Calcium 12.4 mg/dL (8.4-10.2); Potassium 4.3 mmol/L (3.5-5.1)
[2021-07-22] MEDS: IPRATROPIUM-ALBUTEROL 3 ML NEB INHALATION SCH ×4 (07:14→20:09)
[2021-07-22] MEDS: SYMBICORT 80-4.5 MCG INHALER INHALATION SCH ×3 (07:15→20:09)
[2021-07-22] MEDS: predniSONE 20 MG TAB PO SCH (07:57)
[2021-07-22] MEDS: ASPIRIN 325 MG TAB PO SCH (07:57)
[2021-07-22] MEDS: FERROUS SULFATE 325 MG TAB PO SCH (07:58)
[2021-07-22] MEDS ORDERED: IPRATROPIUM 0.5 MG/2.5 ML NEBU INHALATION SCH (08:00)
[2021-07-22 08:13] LABS: Basophils # (M) 0.09 k/uL (0-0.2); Lymphocytes # (M) 3.51 k/uL (1.0-4.8); Monocytes # (M) 0.54 k/uL (0-1.0); Neutrophils # (M) 4.86 k/uL (1.3-7.7); Neutrophils % (M) 54 %; Nucleated Red Blood Cells 0 /100 WBC (0-0); Total Cells Counted 100
[2021-07-22] MEDS: HEPARIN SOD,PORK IN 0.45% NACL 25,000 UNIT in 0.45% NACL 1 250ML.BAG IV SCH (15:40)
--- NOTE | 2021-07-22 16:22 | P.PN ---
Subjective Progress Note Date: 07/22/21 Patient is a 58 [id number] with a PMH of CLL (not on treatmeant), lupus anticoagulant and recent renal mass who presented to the emergency department with complaints of shortness of breath. Patient has had numerous admissions for the hospital for complaints of shortness of breath and hematuria over the last year. In the ER he underwent an extensive evaluation. Initial vital signs are within normal limits. Laboratory analysis showed elevated calcium, BUN 33, elevated creatinine at 2.06. His d-dimer was 31.51. There is concern for possible pulmonary embolism however patient could not undergo CTA of the chest secondary to his elevated creatinine. He was started on a prophylactic heparin drip. Extremity venous Dopplers were obtained which showed no signs of clot. Arrangements are made for admission. Patient was unable to lie flat for VQ scan on 07/22. Patient seen and examined at bedside. He states the shortness of breath is somewhat better. He denies any chest pain no nausea or vomiting. States he has not followed up with urology. General: Ill appearing, mild distress appears at stated age Derm: warm, dry Head: atraumatic, normocephalic, symmetric Eyes: EOMI, no lid lag, anicteric sclera Mouth: no lip lesion, mucus membranes moist Cardiovascular: S1S2 reg, no murmur, positive posterior tibial pulse bilateral, Lungs: Decreased breath sounds bilateral, no rhonchi, no rales , no accessory muscle use Abdominal: soft, nontender to palpation, no guarding, no appreciable org anomegaly Ext: no gross muscle atrophy, no edema, no contractures Neuro: CN II-XI grossly intact, no focal neuro deficits Psych: Alert, oriented, appropriate affect Acute exacerbation of COPD Possible pulmonary embolism -Patient is unable to lay flat for VQ scan, lower showed a venous Dopplers-ne gative, continue heparin infusion -Continue with DuoNeb's, prednisone, pulmonary hygiene. Right kidney lesion - not seen on most recent CT but had been 1.5 CM - has not followed up outpatient with urology CLL - not on treatment - WBC controlled Acute kidney injury on chronic kidney disease with baseline creatinine 1.2-1.6 - Follow cr - no nephrotoxic medications - gentle IVF Anemia - follow CBC - stable and improved from baseline DVT prophylaxis: Heparin gtt Discussed with: patient and nursing Anticipated discharge: in 2-[address]: home A total of 35 minutes was spent on the care of this complex patient more than 50% of the time was spent in counseling and care coordination. Objective - Vital Signs Vital signs: Vital Signs Temp 98.2 F 07/22/21 15:43 Pulse 86 07/22/21 15:50 Resp 18 07/22/21 15:43 BP 116/72 07/22/21 15:43 Pulse Ox 94 L 07/22/21 15:43 Intake & Output 07/21/21 07/22/21 07/22/21 18:59 06:59 18:59 Intake Total 485 1802.833 Balance 485 1802.833 Weight 72.575 kg 72.575 kg Intake: IV 470 Invasive Line 1 20 Sodium Chloride 0.9% 1, 450 000 ml @ 75 mls/hr IV . [id number] PRIMO Rx#:[id number] Intake, IV Titration 212.833 Amount Heparin Sod,Pork in 0.45% 212.833 NaCl 25,000 unit In 0.45 % NaCl 1 250ml.bag @ 18 UNITS/KG/HR 13.064 mls/hr IV .[id number] PRIMO Rx#: [id number] Oral 485 1120 Other: Voiding Method Toilet Toilet Urinal # Voids 2 2 - Labs CBC & Chem 7: 07/22/21 05:48 07/22/21 05:48 Labs: Abnormal Lab Results - Last 24 Hours (Table) 07/21/21 07/21/21 07/21/21 Range/Units 20:30 20:30 20:30 RBC (4.30-5.90) m/uL Hgb 10.4 L (13.0-17.5) gm/dL Hct 33.2 L (39.0-53.0) % MCV 75.9 L (80.0-100.0) fL MCH 23.8 L (25.0-35.0) pg MCHC (31.0-37.0) g/dL RDW 17.1 H (11.5-15.5) % Metamyelocytes # (Man) 0.16 H (0) k/uL Myelocytes # (Manual) 0.08 H (0) k/uL D-Dimer 31.51 H (<0.60) mg/L FEU Sodium 136 L (137-145) mmol/L Carbon Dioxide (22-30) mmol/L BUN 33 H (9-20) mg/dL Creatinine 2.06 H (0.66-1.25) mg/dL Calcium 12.7 H (8.4-10.2) mg/dL 07/22/21 07/22/21 Range/Units 05:48 05:48 RBC 4.24 L (4.30-5.90) m/uL Hgb 10.0 L (13.0-17.5) gm/dL Hct 32.9 L (39.0-53.0) % MCV 77.7 L (80.0-100.0) fL MCH 23.5 L (25.0-35.0) pg MCHC 30.2 L (31.0-37.0) g/dL RDW 16.8 H (11.5-15.5) % Metamyelocytes # (Man) (0) k/uL Myelocytes # (Manual) (0) k/uL D-Dimer (<0.60) mg/L FEU Sodium 135 L (137-145) mmol/L Carbon Dioxide 20 L (22-30) mmol/L BUN 31 H (9-20) mg/dL Creatinine 2.00 H (0.66-1.25) mg/dL Calcium 12.4 H (8.4-10.2) mg/dL
[2021-07-22] MEDS: PARoxetine 20 MG TAB PO SCH (20:52)
[2021-07-22] MEDS: GABAPENTIN 100 MG CAP PO SCH (20:52)
[2021-07-22 21:31] LABS: % Iron Saturation 17.9 (15.00-50.00); Ferritin 24.8 ng/mL (22.0-322.0)
[2021-07-23] MEDS: SODIUM CHLORIDE 0.9% 1,000 ML IV SCH ×2 (06:51→20:31)
[2021-07-23] MEDS: IPRATROPIUM-ALBUTEROL 3 ML NEB INHALATION SCH ×4 (07:55→19:02)
[2021-07-23] MEDS: SYMBICORT 80-4.5 MCG INHALER INHALATION SCH ×2 (07:56→19:02)
[2021-07-23] MEDS: ASPIRIN 325 MG TAB PO SCH (08:31)
[2021-07-23] MEDS: predniSONE 20 MG TAB PO SCH (08:31)
--- NOTE | 2021-07-23 12:19 | P.GSCN ---
History of Present Illness Consult date: 07/23/21 Reason for Consult: Right renal mass History of present illness: This is a 61-year-old male presents to the hospital with shortness of breath. He was seen back in the hospital in April of this year with gross hematuria and a possible right-sided renal mass. At that time he underwent an ultrasound and CT with IV contrast that showed evidence of 1.6 cm mass. He underwent subsequent ultrasound in May that showed them the lesion has decreased 1.3 cm in size. On evaluation of imaging appeared to be extra renal. He was recommended to undergo a cystoscopy and CT Urogram as an outpatient but he hasn't followed up. Of note he underwent a repeat CT earlier this month that showed resolution of the renal lesion, but of note it was a noncontrasted image. Denies any voiding issues, gross hematuria, or flank pain at this time. He does have history of CLL, not on any treatment currently Review of Systems - Constitutional Denies fever, Denies weight loss - EENT Ears, nose, mouth and throat: Denies dysphagia - Cardiovascular Reports shortness of breath, Denies chest pain - Respiratory Reports dyspnea, Denies cough - Gastrointestinal Reports as per HPI - Genitourinary Denies dysuria, Denies hematuria - Neurological Denies headaches, Denies syncope Past Medical History Past Medical History: Cancer, COPD Additional Past Medical History / Comment(s): Chronic lymphocytic leukemia, emphysema, plueral effusion 09/23/2020, covid 10/2020, lupus anticoagulant History of Any Multi-Drug Resistant Organisms: None Reported Past Surgical History: Appendectomy, Orthopedic Surgery Additional Past Surgical History / Comment(s): rt knee Past Anesthesia/Blood Transfusion Reactions: No Reported Reaction Past Psychological History: Anxiety, Depression Smoking Status: Former smoker Past Alcohol Use History: None Reported Past Drug Use History: None Reported - Past Family History Family Family Medical History: Hypertension Medications and Allergies Home Medications Medication Instructions Recorded Confirmed Type Albuterol Sulfate [Proair Hfa] 2 puff INHALATION RT-Q6H PRN 09/23/20 07/21/21 History Cyclobenzaprine [Flexeril] 10 mg PO HS PRN 09/23/20 07/21/21 History Fluticasone/Salmeterol [Advair 1 puff INHALATION RT-BID 09/23/20 07/21/21 History 250-50 Diskus] Omeprazole 40 mg PO DAILY 09/23/20 07/21/21 History PARoxetine [Paxil] 20 mg PO HS 09/23/20 07/21/21 History Tiotropium [place] [Spiriva] 1 cap INHALATION RT-DAILY 09/23/20 07/21/21 History Aspirin 325 mg PO DAILY #30 tab 09/27/20 07/21/21 Rx Cholecalciferol [Vitamin D3 (25 25 mcg PO DAILY #30 tablet 10/27/20 07/21/21 Rx Mcg = 1000 Iu)] Ascorbic Acid [Vitamin C] 1,000 mg PO DAILY 04/24/21 07/21/21 History Inulin/Chromium Picolinate [Fiber 4 tab PO DAILY 04/24/21 07/21/21 History Gummies Chew] Multivitamins, Thera [Multivitamin 1 tab PO DAILY 04/24/21 07/21/21 History (formulary)] Albuterol Nebulized [Ventolin 2.5 mg INHALATION RT-QID PRN 07/18/21 07/21/21 History Nebulized] Ferrous Sulfate [Iron (65 MG 325 mg PO Q48H 07/18/21 07/21/21 History Elemental)] Gabapentin [Neurontin] 100 mg PO HS 07/18/21 07/21/21 History [place]-3 Fatty Acids/Fish Oil [Fish 1 cap PO DAILY 07/21/21 07/21/21 History Oil 1,000 mg Softgel] Vitamin B Complex 1 cap PO DAILY 07/21/21 07/21/21 History Allergies Allergy/AdvReac Type Severity Reaction Status Date / Time Penicillins Allergy Unknown Verified 07/21/21 22:20 Childhood Surgical - Exam Vital Signs Temp Pulse Resp BP Pulse Ox 96.9 F L 71 18 99/63 98 07/21/21 17:53 07/21/21 17:53 07/21/21 17:53 07/21/21 17:53 07/21/21 17:53 Results - Labs 07/22/21 05:48 07/22/21 05:48 Abnormal Lab Results - Last 24 Hours (Table) 07/22/21 07/23/21 Range/Units 05:48 09:43 APTT 118.4 H* (22.0-30.0) sec Iron 60 L (65-175) ug/dL Assessment and Plan Assessment: 61-year-old male with history of a 1.6 cm extra renal lesion, initially seen on the CT and ultrasound back in April 2021. At that time he also had evidence of gross hematuria. His hematuria has resolved, repeat renal ultrasound in May showed that the lesion has decreased in size to 1.3 cm. Repeat noncontrasted imaging earlier this month showed resolution of the lesion. Discussed this unlikely to be renal cell carcinoma, given that it's been decrea sing in size. But given the most recent image was a noncontrasted images recommend he undergoes a repeat ultrasound in approximately 6 months to assess the resolution of that lesion. He also will need cystoscopy as an outpatient to complete his hematuria workup.
[2021-07-23] MEDS: ENOXAPARIN 60 MG/0.6 ML SYRINGE SQ SCH ×2 (12:23→20:31)
[2021-07-23] MEDS: guaiFENesin 600 MG TABLET.ER PO SCH ×2 (12:27→20:30)
--- NOTE | 2021-07-23 12:29 | P.PN ---
Subjective Progress Note Date: 07/23/21 (delayed charting seen at 0930) Principal diagnosis: shortness of breath Patient is a 58 [id number] with a PMH of CLL (not on treatmeant), lupus anticoagulant and recent renal mass who presented to the emergency department with complaints of shortness of breath. Patient has had numerous admissions for the hospital for complaints of shortness of breath and hematuria over the last year. In the ER he underwent an extensive evaluation. Initial vital signs are within normal limits. Laboratory analysis showed elevated calcium, BUN 33, elevated creatinine at 2.06. His d-dimer was 31.51. There is concern for possible pulmonary embolism however patient could not undergo CTA of the chest secondary to his elevated creatinine. He was started on a prophylactic heparin drip. Extremity venous Dopplers were obtained which showed no signs of clot. Arrangements are made for admission. Patient was unable to lie flat for VQ scan on 07/22. He now states that he was supposed to start infusions for his CLL and follow with Dr. Chen on 07/24. Patient seen and examined at bedside. Breathing is better, no nausea, no vomiting, worried about if CLL could be causing shortness of breath, we discussed could make him more prone to blood clots. General: Ill appearing, no distress appears at stated age Derm: diffuse abdominal maculopapular rash with convalescence on abdominal wall, warm, dry Head: atraumatic, normocephalic, symmetric Eyes: EOMI, no lid lag, anicteric sclera Mouth: no lip lesion, mucus membranes moist Cardiovascular: S1S2 reg, no murmur, positive posterior tibial pulse bilateral, Lungs: Decreased breath sounds bilateral, no rhonchi, no rales , no accessory muscle use Abdominal: soft, nontender to palpation, no guarding, no appreciable organomegaly Ext: no gross muscle atrophy, no edema, no contractures Neuro: CN II-XI grossly intact, no focal neuro deficits Psych: Alert, oriented, appropriate affect Acute exacerbation of COPD Possible pulmonary embolism - Patient is unable to lay flat for VQ scan, lower showed a venous Dopplers- negative - unable to calcuate ptt here and will transition to lovenox - states he will be able to layflat for VQ now. - Continue with DuoNeb's, prednisone, pulmonary hygiene. Right kidney lesion - not seen on most recent CT but had been 1.5 CM - has not followed up outpatient with urology CLL - consult heme/onc was supposed to see in office on 07/24 and concerned about if SOB is coming from CLL - WBC controlled Acute kidney injury on chronic kidney disease with baseline creatinine 1.2-1.6 - Follow cr - no nephrotoxic medications - gentle IVF Anemia - follow CBC - stable and improved from baseline Dermatitis - has been presents for 3 weeks, following with his PCP. DVT prophylaxis: Heparin gtt Discussed with: patient and nursing Anticipated discharge: in 2-[address]: home A total of 35 minutes was spent on the care of this complex patient more than 50% of the time was spent in counseling and care coordination. Objective - Vital Signs Vital signs: Vital Signs Temp 98.2 F 07/23/21 08:25 Pulse 88 07/23/21 11:08 Resp 18 07/23/21 08:25 BP 119/67 07/23/21 08:25 Pulse Ox 87 L 07/23/21 08:25 Intake & Output 07/22/21 07/23/21 07/23/21 19:59 06:59 18:59 Intake Total 118 Output Total Balance 118 Weight Intake: IV Invasive Line 1 Sodium Chloride 0.9% 1, 000 ml @ 75 mls/hr IV . [id number] [facility] Rx#:[id number] Intake, IV Titration Amount Heparin Sod,Pork in 0.45% NaCl 25,000 unit In 0.45 % NaCl 1 250ml.bag @ 18 UNITS/KG/HR 13.064 mls/hr IV .Q19H9M [facility] Rx#: [id number] Oral 118 Output: Urine Other: Voiding Method Urinal # Voids - Labs CBC & Chem 7: 07/22/21 05:48 07/22/21 05:48 Labs: Abnormal Lab Results - Last 24 Hours (Table) 07/22/21 07/23/21 Range/Units 05:48 09:43 APTT 118.4 H* (22.0-30.0) sec Iron 60 L (65-175) ug/dL
--- NOTE | 2021-07-23 17:41 | P.CONS ---
History of Present Illness - Reason for Consult Consult date: 07/23/21 CLL Requesting physician: Cindy Aggarwal - Chief Complaint SOB and abdominal Pain - History of Present Illness Mr. Cochran is a pleasant male patient of Dr. Coats who has been on observation for his known CLL diagnosis. He has had a rough 2020. In October Covid requirin g hospitalization. Because of the concern of antiphospholipid syndrome and his history of positive lupus anticoagulant full dose anticoagulation was given at that time and attempted to continue post discharge, however shortly after discharge he was re-hospitalized with hemoglobin of 6.5, evidence of GI bleed blood loss anemia. Since that time he has had hospitalizations for MIRIAM and Hematuria. In October a LLL Nodule that was ordered to be re-evaluated in February. Also in a 1cm hypoechoic lesion identified on Kidney. He did not show for his appointment in February, but did recently schedule appointment in to re-evaluate if time to begin treatment for his CLL. He presents today with respiratory distress, difficult when speaking. he complains of abdominal pain. Renal function is increased, creat >2 (baseline closer to 1.5). He was seen in ER on 07/[address] chest/Abdomen/Pelvis was performed. this eas without contrast, no comparision performed. He now presents with increased shortness of breath, abdominal pain, requiring admission. There was high suspicion of Pulmonary Embolis, although VQ could not be performed. It appears full dose anticoagulation has been started again on patient. Venous doppler negative. Review of Systems All systems: negative Constitutional: Reports as per HPI Past Medical History Past Medical History: Cancer, COPD Additional Past Medical History / Comment(s): Chronic lymphocytic leukemia, emphysema, plueral effusion 09/23/2020, covid 10/2020, lupus anticoagulant History of Any Multi-Drug Resistant Organisms: None Reported Past Surgical History: Appendectomy, Orthopedic Surgery Additional Past Surgical History / Comment(s): rt knee Past Anesthesia/Blood Transfusion Reactions: No Reported Reaction Past Psychological History: Anxiety, Depression Smoking Status: Former smoker Past Alcohol Use History: None Reported Past Drug Use History: None Reported - Past Family History Family Family Medical History: Hypertension Medications and Allergies Home Medications Medication Instructions Recorded Confirmed Type Albuterol Sulfate [Proair Hfa] 2 puff INHALATION RT-Q6H PRN 09/23/20 07/21/21 History Cyclobenzaprine [Flexeril] 10 mg PO HS PRN 09/23/20 07/21/21 History Fluticasone/Salmeterol [Advair 1 puff INHALATION RT-BID 09/23/20 07/21/21 History 250-50 Diskus] Omeprazole 40 mg PO DAILY 09/23/20 07/21/21 History PARoxetine [Paxil] 20 mg PO HS 09/23/20 07/21/21 History Tiotropium [place] [Spiriva] 1 cap INHALATION RT-DAILY 09/23/20 07/21/21 History Aspirin 325 mg PO DAILY #30 tab 09/27/20 07/21/21 Rx Cholecalciferol [Vitamin D3 (25 25 mcg PO DAILY #30 tablet 10/27/20 07/21/21 Rx Mcg = 1000 Iu)] Ascorbic Acid [Vitamin C] 1,000 mg PO DAILY 04/24/21 07/21/21 History Inulin/Chromium Picolinate [Fiber 4 tab PO DAILY 04/24/21 07/21/21 History Gummies Chew] Multivitamins, Thera [Multivitamin 1 tab PO DAILY 04/24/21 07/21/21 History (formulary)] Albuterol Nebulized [Ventolin 2.5 mg INHALATION RT-QID PRN 07/18/21 07/21/21 History Nebulized] Ferrous Sulfate [Iron (65 MG 325 mg PO Q48H 07/18/21 07/21/21 History Elemental)] Gabapentin [Neurontin] 100 mg PO HS 07/18/21 07/21/21 History [place]-3 Fatty Acids/Fish Oil [Fish 1 cap PO DAILY 07/21/21 07/21/21 History Oil 1,000 mg Softgel] Vitamin B Complex 1 cap PO DAILY 07/21/21 07/21/21 History Allergies Allergy/AdvReac Type Severity Reaction Status Date / Time Penicillins Allergy Unknown Verified 07/21/21 22:20 Childhood Physical Exam Vitals: Vital Signs Temp Pulse Pulse Resp BP Pulse Ox 07/23/21 16:30 93 16 124/66 93 L 07/23/21 15:25 84 07/23/21 15:20 80 07/23/21 12:25 97.3 F L 81 16 124/67 95 07/23/21 11:08 88 07/23/21 11:01 80 07/23/21 08:25 98.2 F 76 18 119/67 87 L 07/23/21 08:10 84 07/23/21 07:57 88 07/23/21 03:55 98.2 F 72 16 104/68 98 07/23/21 00:00 98.0 F 80 18 114/72 97 07/22/21 20:21 88 07/22/21 20:11 86 07/22/21 20:00 97.6 F 83 18 122/60 95 Intake and Output 07/23/21 07/23/21 07/23/21 06:59 14:59 22:59 Intake Total 718 Output Total Balance 718 Intake: Intake, IV Titration Amount Heparin Sod,Pork in 0.45% NaCl 25,000 unit In 0.45 % NaCl 1 250ml.bag @ 18 UNITS/KG/HR 13.064 mls/hr IV .Q19H9M [facility] Rx#: [id number] Oral 718 Output: Urine Other: Voiding Method Urinal # Voids 2 Weight - Constitutional General appearance: cooperative, mild distress - EENT Eyes: EOMI ENT: NA/AT - Neck Neck: lymphadenopathy - Respiratory Respiratory: bilateral: diminished, wheezing - Cardiovascular Rhythm: regular - Gastrointestinal General gastrointestinal: distended, soft, tenderness - Integumentary Integumentary: pale - Neurologic Neurologic: CNII-XII intact - Musculoskeletal Musculoskeletal: generalized weakness, strength equal bilaterally, left sided weakness - Psychiatric Psychiatric: A&O x's 3, appropriate affect, intact judgment & insight Results CBC & Chem 7: 07/22/21 05:48 07/22/21 05:48 Labs: Abnormal Lab Results - Last 24 Hours (Table) 07/22/21 07/23/21 Range/Units 05:48 09:43 APTT 118.4 H* (22.0-30.0) sec Iron 60 L (65-175) ug/dL CT scan - abdomen: report reviewed CT scan - chest: report reviewed CT scan - pelvis: report reviewed Venous US: report reviewed Assessment and Plan (1) Elevated d-dimer Current Visit: Yes Status: Acute Code(s): R79.89 - OTHER SPECIFIED ABNORMAL FINDINGS OF BLOOD CHEMISTRY SNOMED Code(s): 684785460 (2) Acute respiratory distress syndrome in adult Current Visit: No Status: Acute Code(s): J80 - ACUTE RESPIRATORY DISTRESS SYNDROME SNOMED Code(s): 88657548 (3) Coagulopathy Current Visit: No Status: Acute Priority: High Code(s): D68.9 - COAGULATION DEFECT, UNSPECIFIED SNOMED Code(s): 22634459 (4) Microcytic anemia Current Visit: No Status: Acute Code(s): D50.9 - IRON DEFICIENCY ANEMIA, UNSPECIFIED SNOMED Code(s): 912001405 (5) Chronic lymphocytic leukemia Current Visit: Yes Status: Acute Code(s): C91.10 - CHRONIC LYMPHOCYTIC LEUK OF B-CELL TYPE NOT ACHIEVE REMIS SNOMED Code(s): 41331609 Plan: Overall difficult to determine risk verse benefit of patient in regards to active thrombus. patients d-dimer is increased, increased from baseline 33. The re does appear to be probable evidence of progressive CLL, Concern of coagulopathy on 07/18 INR 3.0 (possibly from decreased po intake versus other) at which I did not identify any anticoagulation to explain this and then factoring in his recent history of GI bleed with anticoagulation. I have sent a message to Primary team to discuss further. D-Dimer increased (higher then prior trends) - Likely CLL Progression but cannot exclude Thrombolic event without definitive means Recent INR 3.0 (will need to confirm no other recent contributing medications - Drawn on 07/18 Increased renal Function - Concern of lysis from CLL - Will check LDH, Uric acid, Mag, Phos Microcytic anemia: Hx: GI blood loss and hematuria - PO Iron Supp therefore normal Iron studies today At this time continue supportive care, I anticipate patient to require treatment for CLL post discharge given the most recent imaging in comparison to prior Discussed with Eliseo VERDUGO with [facility] who will discuss further with team and updated recs maybe placed In the interim repeat stat INR/PT TLS labs IgG Supportive care Spoke to primary team, they would like to continue lovenox full dose continuing. Will continue to monitor closely for any signs of bleeding, none during assessment. monitor cbc and coags.
[2021-07-23 19:13] LABS: INR 3.1 (<1.2); Prothrombin Time 30.1 sec (9.0-12.0)
[2021-07-23] MEDS: GABAPENTIN 100 MG CAP PO SCH (20:30)
[2021-07-23] MEDS: PARoxetine 20 MG TAB PO SCH (20:30)
[2021-07-23] MEDS: IPRATROPIUM-ALBUTEROL 3 ML NEB INHALATION PRN (23:50)
[2021-07-24 06:34] LABS: Albumin 3.7 g/dL (3.5-5.0); Calcium 11.1 mg/dL (8.4-10.2); Magnesium 2.1 mg/dL (1.6-2.3); Phosphorus 3.6 mg/dL (2.5-4.5); Potassium 3.8 mmol/L (3.5-5.1); Total Bilirubin 0.8 mg/dL (0.2-1.3); Uric Acid 11.8 mg/dL (3.5-8.5)
[2021-07-24] MEDS: SODIUM CHLORIDE 0.9% 1,000 ML IV SCH (06:38)
[2021-07-24 06:41] LABS: Anisocytosis Slight; HCT 30.7 % (39.0-53.0); HGB 9.7 gm/dL (13.0-17.5); Hypochromasia Slight; MCHC 31.6 g/dL (31.0-37.0); MCV 76.1 fL (80.0-100.0); Mean Platelet Volume 6.9; Microcytosis Slight; Platelet Count 311 k/uL (150-450); RBC 4.04 m/uL (4.30-5.90); RDW 17.4 % (11.5-15.5); WBC 6.9 k/uL (3.8-10.6)
[2021-07-24 07:20] LABS: Anisocytosis (M) Present; Lymphocytes # (M) 3.17 k/uL (1.0-4.8); Monocytes # (M) 0.07 k/uL (0-1.0); Neutrophils # (M) 3.66 k/uL (1.3-7.7); Neutrophils % (M) 53 %; Nucleated Red Blood Cells 0 /100 WBC (0-0); Polychromasia Present; Total Cells Counted 100
[2021-07-24] MEDS: ASPIRIN 325 MG TAB PO SCH (07:52)
[2021-07-24] MEDS: guaiFENesin 600 MG TABLET.ER PO SCH ×2 (07:52→20:59)
[2021-07-24] MEDS: ENOXAPARIN 60 MG/0.6 ML SYRINGE SQ SCH (07:52)
[2021-07-24] MEDS: FERROUS SULFATE 325 MG TAB PO SCH (07:52)
[2021-07-24] MEDS: predniSONE 20 MG TAB PO SCH (07:53)
[2021-07-24] MEDS: IPRATROPIUM-ALBUTEROL 3 ML NEB INHALATION SCH ×4 (08:06→19:46)
[2021-07-24] MEDS: SYMBICORT 80-4.5 MCG INHALER INHALATION SCH ×2 (08:07→19:46)
[2021-07-24 08:35] VITALS: BMI 20.5
--- NOTE | 2021-07-24 09:09 | P.PN ---
Subjective Progress Note Date: 07/24/21 Principal diagnosis: Acute on Chronic Respiratory Failure Renal function is improving, as well as, hemoglobin is stable (no signs of bleeding). Objective - Vital Signs Vital signs: Vital Signs Temp 98 F 07/24/21 07:50 Pulse 80 07/24/21 08:20 Resp 17 07/24/21 07:50 BP 113/70 07/24/21 07:50 Pulse Ox 95 07/24/21 07:50 Intake & Output 07/23/21 07/24/21 07/24/21 18:59 06:59 18:59 Intake Total 1272.537 Balance 1272.537 Weight 57.5 kg 57.5 kg Intake: Intake, IV Titration 74.537 Amount Heparin Sod,Pork in 0.45% 74.537 NaCl 25,000 unit In 0.45 % NaCl 1 250ml.bag @ 18 UNITS/KG/HR 13.064 mls/hr IV .Q19H9M [facility] Rx#: [id number] Oral 1198 Other: Voiding Method Urinal # Voids 3 1 - Exam Alert and Oriented Mild Respiratory Distress Lungs: Rhonchi and increased effort Heart: Tachy Abdomen: Tender, Splenomegaly Ext: No edema Pale Calm - Labs CBC & Chem 7: 07/24/21 05:32 07/24/21 05:32 Labs: Abnormal Lab Results - Last 24 Hours (Table) 07/23/21 07/23/21 07/24/21 Range/Units 09:43 18:35 05:32 RBC 4.04 L (4.30-5.90) m/uL Hgb 9.7 L (13.0-17.5) gm/dL Hct 30.7 L (39.0-53.0) % MCV 76.1 L (80.0-100.0) fL MCH 24.0 L (25.0-35.0) pg RDW 17.4 H (11.5-15.5) % PT 30.1 H (9.0-12.0) sec INR 3.1 H (<1.2) APTT 118.4 H* (22.0-30.0) sec Chloride (98-107) mmol/L Carbon Dioxide (22-30) mmol/L BUN (9-20) mg/dL Creatinine (0.66-1.25) mg/dL Uric Acid (3.5-8.5) mg/dL Calcium (8.4-10.2) mg/dL 07/24/21 Range/Units 05:32 RBC (4.30-5.90) m/uL Hgb (13.0-17.5) gm/dL Hct (39.0-53.0) % MCV (80.0-100.0) fL MCH (25.0-35.0) pg RDW (11.5-15.5) % PT (9.0-12.0) sec INR (<1.2) APTT (22.0-30.0) sec Chloride 110 H (98-107) mmol/L Carbon Dioxide 20 L (22-30) mmol/L BUN 35 H (9-20) mg/dL Creatinine 1.44 H (0.66-1.25) mg/dL Uric Acid 11.8 H (3.5-8.5) mg/dL Calcium 11.1 H (8.4-10.2) mg/dL Assessment and Plan (1) Elevated d-dimer Current Visit: Yes Status: Acute Code(s): R79.89 - OTHER SPECIFIED ABNORMAL FINDINGS OF BLOOD CHEMISTRY SNOMED Code(s): 599081266 (2) Acute respiratory distress syndrome in adult Current Visit: No Status: Acute Code(s): J80 - ACUTE RESPIRATORY DISTRESS SYNDROME SNOMED Code(s): 19284452 (3) Coagulopathy Current Visit: No Status: Acute Priority: High Code(s): D68.9 - COAGULATION DEFECT, UNSPECIFIED SNOMED Code(s): 33480672 (4) Microcytic anemia Current Visit: No Status: Acute Code(s): D50.9 - IRON DEFICIENCY ANEMIA, UNSPECIFIED SNOMED Code(s): 749581662 (5) Chronic lymphocytic leukemia Current Visit: Yes Status: Acute Code(s): C91.10 - CHRONIC LYMPHOCYTIC LEUK OF B-CELL TYPE NOT ACHIEVE REMIS SNOMED Code(s): 83109884 Plan: Overall difficult to determine risk verse benefit of patient in regards to active thrombus. patients d-dimer is increased, increased from baseline 33. There does appear to be probable evidence of progressive CLL, Concern of coagulopathy, recent history of GI bleed with anticoagulation, although increased risk for thrombolic event given his known malignancy and lupus anticoagulant. Acute on Chronic Respiratory Insufficiency: - Secondary to progressive CLL versus other - PE cannot be definitively ruled out at this time Acute Renal Insufficiency: - Improved today, Creat -1.44 (Closer to his baseline) - Continue Hydration and likely further improvement tomorrow to move forward with CTA - Monitor for TLS CLL: - Possible progressive and benefit from treatment in near future - Primary Oncologist Dr. Chen Microcytic anemia: - Hx: GI blood loss and hematuria - - Continue on PO Iron Supp (normal Iron studies likely secondary to supplement ation) Elevated D-Dimer, Lupus Anticoagulant, Hypercoagulable State: - Full dose anticoagulation per primary team management - Patient was unable to lay flat for VQ - Recommend CTA with hydration when renally safe - Venous Doppler Negative for DVT Plan: - Continue monitor for any s/s bleeding - Continue monitoring for TLS - Rec CTA when safe with post hydration - AC therapy per primary team
[2021-07-24] MEDS ORDERED: MORPHINE SULFATE 4 MG/ML SYRINGE IVP STA (09:33)
[2021-07-24 10:52] LABS: Folate, Serum >20.00 ng/mL (4.40-31.00)
[2021-07-24] MEDS: methylPREDNISolone SOD SUCCI 125 MG/2 ML VIAL IV SCH ×2 (11:51→15:24)
--- NOTE | 2021-07-24 12:23 | CDI ---
Documentation Clarification Form Date: 07/24/2021 12:19:21 PM From: Theresa Howell RN, CCDS Admit Date: 07/21/2021 09:28:00 PM Patient Name: Zana Cochran Visit Number: [id number] Discharge Date: ATTENTION: The Clinical Documentation Specialists (CDI) and [facility] Coding Staff appreciate your assistance in clarifying documentation. Please respond to the clarification below the line at the bottom and electronically sign. The CDI & [facility] Coding staff will review the response and follow-up if needed. Please note: Queries are made part of the Legal Health Record. If you have any questions, please contact the author of this message via ITS. Dr. Cindy Aggarwal Unspecified CKD is documented the progress note on 07/22/21. Additional clarification regarding the stage of CKD is requested. History/Risk Factors: Cancer, CLL, Covid 11/06, Lupus anticoagulant, former smoker Patients Historical CR 1.2-1.6 Clinical Indicators: 61-year-old male with PMH of CLL( not on treatment) recent renal mass with presented to emergency department with shortness of breath. Lab analysis showed elevated BUN 33, elevated creatinine at 2.06, GFR 33 07/22/21 BUN 31, CR 2.00 GFR 35 07/24/21 BUN 35, CR 1.44 GFR 51 Treatment: Monitor BUN, CR, Lytes /per orders .9NS IV@ 75 MLS/HR Please clarify the stage of the CKD, if known: [ ] CKD Stage 1 (GFR > 90) [ ] CKD Stage 2 (GFR 60-89) [ X ] CKD Stage 3 (GFR 30-59) [ ] CKD Stage 3a (GFR 45-59) [ ] CKD Stage 3b (GFR 30-44) [ ] CKD Stage 4 (GFR 15-29) [ ] CKD Stage 5 (GFR <15) [ ] ESRD [ ] Other, please specify [ ] Unable to determine (Template Last revised: October 2020) MTDD
--- NOTE | 2021-07-24 13:30 | P.PN ---
Subjective Progress Note Date: 07/24/21 Principal diagnosis: shortness of breath Patient is a 58 [id number] with a PMH of CLL (not on treatmeant), lupus anticoagulant and recent renal mass who presented to the emergency department with complaints of shortness of breath. Patient has had numerous admissions for the hospital for complaints of shortness of breath and hematuria over the last year. In the ER he underwent an extensive evaluation. Initial vital signs are within normal limits. Laboratory analysis showed elevated calcium, BUN 33, elevated creatinine at 2.06. His d-dimer was 31.51. There is concern for possible pulmonary embolism however patient could not undergo CTA of the chest secondary to his elevated creatinine. He was started on a prophylactic heparin drip. Extremity venous Dopplers were obtained which showed no signs of clot. Arrangements were made for admission. Patient was unable to lie flat for VQ scan on 07/22. He now states that he was supposed to start infusions for his CLL and follow with Dr. Chen on 07/24. He did have some hemoptysis Patient seen and examined at bedside. Breathing is worse today, no nausea, no vomiting, no diarrhea. Had bleeding from his ear, but denies coughing up blood. General: Ill appearing, no distress appears at stated age Derm: diffuse abdominal maculopapular rash with convalescence on abdominal wall, warm, dry Head: atraumatic, normocephalic, symmetric Eyes: EOMI, no lid lag, anicteric sclera Mouth: no lip lesion, mucus membranes moist Cardiovascular: S1S2 reg, no murmur, positive posterior tibial pulse bilateral, Lungs: + wheezing bilateral , no accessory muscle use Abdominal: soft, nontender to palpation, no guarding, no appreciable organomegaly Ext: no gross muscle atrophy, no edema, no contractures Neuro: CN II-XI grossly intact, no focal neuro deficits Psych: Alert, oriented, appropriate affect Acute exacerbation of COPD Possible pulmonary embolism - VQ scan today (patient will lay flat)lower showed a venous Dopplers-negative - stop lovenox with INR >3 - Continue with DuoNeb's, prednisone transitioned to lovenox on 07/24/21, pulmonary hygiene. Right kidney lesion - not seen on most recent CT but had been 1.5 CM - has not followed up outpatient with urology CLL - consult heme/onc was supposed to see in office on 07/24 and concerned about if SOB is coming from CLL - WBC controlled Acute kidney injury on chronic kidney disease stage III with baseline creatinine 1.2-1.6 - Follow cr - no nephrotoxic medications - gentle IVF completed Anemia - follow CBC - stable and improved from baseline Dermatitis - has been presents for 3 weeks, following with his PCP. - improved with steroids DVT prophylaxis: SCDs Discussed with: patient and nursing Anticipated discharge: in 2-[address]: home A total of 35 minutes was spent on the care of this complex patient more than 50% of the time was spent in counseling and care coordination. Objective - Vital Signs Vital signs: Vital Signs Temp 98 F 07/24/21 11:49 Pulse 83 07/24/21 11:49 Resp 17 07/24/21 11:49 BP 122/66 07/24/21 11:49 Pulse Ox 93 L 07/24/21 11:49 Intake & Output 07/23/21 07/24/21 07/24/21 18:59 06:59 18:59 Intake Total 1272.537 Balance 1272.537 Weight 57.5 kg 57.5 kg Intake: Intake, IV Titration 74.537 Amount Heparin Sod,Pork in 0.45% 74.537 NaCl 25,000 unit In 0.45 % NaCl 1 250ml.bag @ 18 UNITS/KG/HR 13.064 mls/hr IV .Q19H9M [facility] Rx#: [id number] Oral 1198 Other: Voiding Method Urinal Urinal # Voids 3 1 - Labs CBC & Chem 7: 07/24/21 05:32 07/24/21 05:32 Labs: Abnormal Lab Results - Last 24 Hours (Table) 07/23/21 07/23/21 07/24/21 Range/Units 18:35 18:35 05:32 RBC 4.04 L (4.30-5.90) m/uL Hgb 9.7 L (13.0-17.5) gm/dL Hct 30.7 L (39.0-53.0) % MCV 76.1 L (80.0-100.0) fL MCH 24.0 L (25.0-35.0) pg RDW 17.4 H (11.5-15.5) % PT 30.1 H (9.0-12.0) sec INR 3.1 H (<1.2) Chloride (98-107) mmol/L Carbon Dioxide (22-30) mmol/L BUN (9-20) mg/dL Creatinine (0.66-1.25) mg/dL Uric Acid (3.5-8.5) mg/dL Calcium (8.4-10.2) mg/dL Vitamin B12 1518.0 H (200.0-944.0) pg/mL 07/24/21 Range/Units 05:32 RBC (4.30-5.90) m/uL Hgb (13.0-17.5) gm/dL Hct (39.0-53.0) % MCV (80.0-100.0) fL MCH (25.0-35.0) pg RDW (11.5-15.5) % PT (9.0-12.0) sec INR (<1.2) Chloride 110 H (98-107) mmol/L Carbon Dioxide 20 L (22-30) mmol/L BUN 35 H (9-20) mg/dL Creatinine 1.44 H (0.66-1.25) mg/dL Uric Acid 11.8 H (3.5-8.5) mg/dL Calcium 11.1 H (8.4-10.2) mg/dL Vitamin B12 (200.0-944.0) pg/mL
--- NOTE | 2021-07-24 16:57 | NM ---
EXAMINATION TYPE: NM pul vent and perfuse DATE OF EXAM: 07/24/2021 COMPARISON: Chest x-ray 07/24/2021 HISTORY: Pulmonary embolism, difficulty breathing, cough TECHNIQUE: Utilizing inhalation of 36.6 mCi Tc 99m DTPA aerosol and intravenous injection of 4.6 mCi of Tc 99m MAA, ventilation and perfusion images are acquired post injection in multiple projections. FINDINGS: Overall radial pharmaceutical uptake is better on perfusion imaging than on ventilation images. There is essentially homogenous uptake of radio pharmaceutical and perfusion imaging within the lungs. Óscar e central clumping of the radial pharmaceutical and ventilation images may be due to underlying COPD. . There is no evidence of mismatched defects. IMPRESSION: Low probability for pulmonary embolus.
--- NOTE | 2021-07-24 16:58 | XR ---
EXAMINATION TYPE: XR chest 2V DATE OF EXAM: 07/24/2021 COMPARISON: 07/21/2021 HISTORY: Short of breath TECHNIQUE: FINDINGS: Heart is normal. Lungs are clear of consolidation. There is small left pleural effusion. Th ere are no hilar masses. IMPRESSION: There is small left pleural effusion which is increased compared to recent exam. Normal h eart.
[2021-07-24 17:03] LABS: Glucose,Whole Blood 170 mg/dL (75-99)
[2021-07-24] MEDS: INSULIN ASPART (NovoLOG) 100 UNIT/ML VIAL SQ SCH ×2 (17:34→20:59)
[2021-07-24 20:29] LABS: Glucose,Whole Blood 183 mg/dL (75-99)
[2021-07-24] MEDS: GABAPENTIN 100 MG CAP PO SCH (20:59)
[2021-07-24] MEDS: PARoxetine 20 MG TAB PO SCH (20:59)
[2021-07-25] MEDS: methylPREDNISolone SOD SUCCI 125 MG/2 ML VIAL IV SCH ×2 (00:14→08:00)
[2021-07-25 06:02] LABS: Glucose,Whole Blood 155 mg/dL (75-99)
[2021-07-25 06:21] LABS: Anisocytosis Slight; HCT 33.8 % (39.0-53.0); HGB 10.2 gm/dL (13.0-17.5); Hypochromasia Moderate; MCH 23.9 pg (25.0-35.0); MCHC 30.3 g/dL (31.0-37.0); MCV 78.6 fL (80.0-100.0); Mean Platelet Volume 7.1; Microcytosis Slight; Platelet Count 330 k/uL (150-450); RBC 4.29 m/uL (4.30-5.90); WBC 11.7 k/uL (3.8-10.6)
[2021-07-25] MEDS: INSULIN ASPART (NovoLOG) 100 UNIT/ML VIAL SQ SCH ×2 (06:28→12:21)
[2021-07-25 06:45] LABS: Calcium 11.2 mg/dL (8.4-10.2); Potassium 4.7 mmol/L (3.5-5.1)
[2021-07-25] MEDS: IPRATROPIUM-ALBUTEROL 3 ML NEB INHALATION SCH ×3 (07:25→15:13)
[2021-07-25] MEDS: SYMBICORT 80-4.5 MCG INHALER INHALATION SCH (07:26)
[2021-07-25] MEDS ORDERED: PANTOPRAZOLE 40 MG TABLET PO SCH (07:30)
[2021-07-25 07:59] VITALS: TEMP 98
[2021-07-25] MEDS: ASPIRIN 325 MG TAB PO SCH (08:00)
[2021-07-25] MEDS: guaiFENesin 600 MG TABLET.ER PO SCH (08:00)
--- NOTE | 2021-07-25 09:10 | CDI ---
Documentation Clarification Form Date: 07/24/2021 12:37:00 PM From: Theresa Howell RN, CCDS Admit Date: 07/21/2021 09:28:00 PM Patient Name: Zana Cochran Visit Number: [id number] Discharge Date: 07/25/2021 ATTENTION: The Clinical Documentation Specialists (CDI) and [facility] Coding Staff appreciate your assistance in clarifying documentation. Please respond to the clarification below the line at the bottom and electronically sign. The CDI & [facility] Coding staff will review the response and follow-up if needed. Please note: Queries are made part of the Legal Health Record. If you have any questions, please contact the author of this message via ITS. Dr. Lance Azar Conflicting documentation has been found in the medical record. Acute respiratory distress syndrome, acute respiratory insufficiency and acute on chronic respiratory failure, in the consult and subsequent progress notes Further clarification is needed to clarify the most appreciate diagnosis that support the clinical findings.. 07/23-07/24 Assessment and plan: Acute respiratory distress syndrome in adults 07/24/21 Principle diagnosis: Acute on chronic respiratory failure, acute on chronic respiratory insufficiency. History/Risk Factors: CCL, Covid -19 11/06, Lupus anticoagulant, COPD, Clinical Indicators: 61-year-old male present to emergency room with complaints of cough and fatigue for past 3 days. 07/21 Vital signs on admission: 102/54 91 22 91 % RA, 95 % on 2/L NC 07/21 ED Lung assessment: present: wheezes. Absent: rhonchi, stridor no accessory muscle use 07/23 Medical consult: Assessment: Acute respiratory distress syndrome in adult 07/23 Vital signs: 119/67 76 18 97.2 87 % RA, 95 % 2/L NC 07/24 Medical consult progress not: principle diagnosis: acute on chronic respiratory failure. Plan: Acute respiratory distress syndrome in adult. Acute on chronic respiratory insufficiency secondary to progressive CLL versus other PE cannot be definitively ruled out at this time. General appearance: cooperative, mild distress Lung sounds: bilateral: diminished, wheezing Treatment: Telemetry Monitoring Continue with DuoNeb's per orders Pulmonary hygiene Solu-Medrol 60 MG IV Q 8 HRS Heparin gtt per orders (07/21-07/23) Please clarify which diagnosis is most appropriate: [ ] Acute on chronic hypoxic respiratory failure [ ] Acute respiratory distress syndrome in adult (provide clinical support for this diagnosis [ X ] Acute on chronic respiratory insufficiency [ ] Other (please specify) [ ] Unable to determine (Template Last Revised: November 2020) MTDD
--- NOTE | 2021-07-25 11:59 | P.PN ---
Subjective Progress Note Date: 07/25/21 Principal diagnosis: Acute on Chronic Respiratory Failure Case reviewed with primary oncologist, agree with holding off on full dose anticoagulation at this time without a definitive diagnosis of thrombolic event. Continue gentle hydration with hypercalcemia. Objective - Vital Signs Vital signs: Vital Signs Temp 98 F 07/25/21 07:58 Pulse 77 07/25/21 07:58 Resp 16 07/25/21 07:58 BP 144/80 07/25/21 07:58 Pulse Ox 93 L 07/25/21 07:58 Intake & Output 07/24/21 07/25/21 07/25/21 18:59 06:59 18:59 Intake Total 1200 118 Output Total 600 Balance 600 118 Weight 57.5 kg 57.2 kg Intake: Oral 1200 118 Output: Urine 600 Other: Voiding Method Urinal # Voids 1 - Labs CBC & Chem 7: 07/25/21 05:42 07/25/21 05:42 Labs: Abnormal Lab Results - Last 24 Hours (Table) 07/23/21 07/24/21 07/24/21 Range/Units 18:35 17:02 20:27 WBC (3.8-10.6) k/uL RBC (4.30-5.90) m/uL Hgb (13.0-17.5) gm/dL Hct (39.0-53.0) % MCV (80.0-100.0) fL MCH (25.0-35.0) pg MCHC (31.0-37.0) g/dL RDW (11.5-15.5) % BUN (9-20) mg/dL Creatinine (0.66-1.25) mg/dL Glucose (74-99) mg/dL POC Glucose (mg/dL) 170 H 183 H (75-99) mg/dL Calcium (8.4-10.2) mg/dL Vitamin B12 1518.0 H (200.0-944.0) pg/mL 07/25/21 07/25/21 07/25/21 Range/Units 05:42 05:42 06:01 WBC 11.7 H (3.8-10.6) k/uL RBC 4.29 L (4.30-5.90) m/uL Hgb 10.2 L (13.0-17.5) gm/dL Hct 33.8 L (39.0-53.0) % MCV 78.6 L (80.0-100.0) fL MCH 23.9 L (25.0-35.0) pg MCHC 30.3 L (31.0-37.0) g/dL RDW 17.0 H (11.5-15.5) % BUN 34 H (9-20) mg/dL Creatinine 1.36 H (0.66-1.25) mg/dL Glucose 176 H (74-99) mg/dL POC Glucose (mg/dL) 155 H (75-99) mg/dL Calcium 11.2 H (8.4-10.2) mg/dL Vitamin B12 (200.0-944.0) pg/mL Assessment and Plan (1) Elevated d-dimer Current Visit: Yes Status: Acute Code(s): R79.89 - OTHER SPECIFIED ABNORMAL FINDINGS OF BLOOD CHEMISTRY SNOMED Code(s): 810652407 (2) Acute respiratory distress syndrome in adult Current Visit: No Status: Acute Code(s): J80 - ACUTE RESPIRATORY DISTRESS SYNDROME SNOMED Code(s): 94550370 (3) Coagulopathy Current Visit: No Status: Acute Priority: High Code(s): D68.9 - COAGULATION DEFECT, UNSPECIFIED SNOMED Code(s): 97330768 (4) Microcytic anemia Current Visit: No Status: Acute Code(s): D50.9 - IRON DEFICIENCY ANEMIA, UNSPECIFIED SNOMED Code(s): 396412592 (5) Chronic lymphocytic leukemia Current Visit: Yes Status: Acute Code(s): C91.10 - CHRONIC LYMPHOCYTIC LEUK OF B-CELL TYPE NOT ACHIEVE REMIS SNOMED Code(s): 38292409
[2021-07-25 12:08] LABS: Glucose,Whole Blood 191 mg/dL (75-99)
[2021-07-25 12:47] VITALS: RESP 17
[2021-07-25 13:10] LABS: INR 2.7 (<1.2); Prothrombin Time 26.3 sec (9.0-12.0)
[2021-07-25 13:41] LABS: Albumin 3.9 g/dL (3.5-5.0); Calcium 11.1 mg/dL (8.4-10.2); Magnesium 2.1 mg/dL (1.6-2.3); Phosphorus 3.9 mg/dL (2.5-4.5); Potassium 4.3 mmol/L (3.5-5.1); Total Bilirubin 0.7 mg/dL (0.2-1.3); Total Protein 7.1 g/dL (6.3-8.2); Uric Acid 10.9 mg/dL (3.5-8.5)
[2021-07-25 13:44] LABS: Anisocytosis Slight; HCT 32.4 % (39.0-53.0); HGB 10.2 gm/dL (13.0-17.5); Hypochromasia Slight; MCHC 31.4 g/dL (31.0-37.0); MCV 76.3 fL (80.0-100.0); Mean Platelet Volume 7.4; Microcytosis Slight; Platelet Count 341 k/uL (150-450); RBC 4.25 m/uL (4.30-5.90); RDW 17.4 % (11.5-15.5); WBC 12.3 k/uL (3.8-10.6)
[2021-07-25] MEDS ORDERED: SODIUM CHLORIDE 0.9% 1,000 ML IV ONE (14:30)
[2021-07-25 15:37] VITALS: BP 123/78; PULSE 65
[2021-07-25 15:58] LABS: Lymphocytes # (M) 5.17 k/uL (1.0-4.8); Monocytes # (M) 0.12 k/uL (0-1.0); Neutrophils # (M) 7.01 k/uL (1.3-7.7); Neutrophils % (M) 57 %; Nucleated Red Blood Cells 0 /100 WBC (0-0); Total Cells Counted 100
[2021-07-25 15:59] LABS: Poikilocytosis (M) Present
--- NOTE | 2021-07-25 18:17 | P.DS ---
Providers Date of admission: 07/21/21 21:28 Expected date of discharge: 07/25/21 Attending physician: Peng Corona MD Consults: 07/22/21 01:23 Consult Physician Urgent Consulting Provider: Neno Webb Consult Reason/Comments: renal mass Do you want consulting provider notified?: Yes 07/23/21 10:49 Consult Physician Routine Consulting Provider: Lance Azar Consult Reason/Comments: CLL, hypoxemia Do you want consulting provider notified?: Yes Primary care physician: Mikhail Masters Hospital Course: Discharge Diagnosis: Acute exacerbation of COPD Right lesion CLL, progressive, will need treatment soon Hypercalcemia likely due to cancer Acute kidney injury chronic kidney disease stage III Anemia Dermatitis Hospital Course: Patient is a 58 [id number] with a PMH of CLL (not currently on treatmeant), lupus anticoagulant and recent renal mass who presented to the emergency department with complaints of shortness of breath. Patient has had numerous admissions for the hospital for complaints of shortness of breath and hematuria over the last year. In the ER he underwent an extensive evaluation. Initial vital signs are within normal limits. Laboratory analysis showed elevated calcium, BUN 33, elevated creatinine at 2.06. His d-dimer was 31.51. There is concern for possible pulmonary embolism however patient could not undergo CTA of the chest secondary to his elevated creatinine. He was started on a prophylactic heparin drip. Extremity venous Dopplers were obtained which showed no signs of clot. Arrangements were made for admission. Patient was unable to lie flat for VQ scan on 07/22 her breathing improved and was able to lie flat on 07/22. VQ scan was low probability for pulmonary embolism. Was felt that his elevated d-dimer was likely secondary to CLL. He was seen by oncology and multiple tests were drawn as they felt his CLL was progressive that he needed treatment. His calcium was high this hospital stay and improved throughout. He will follow with oncology on for lab and repeat IVF vs Zometa if needed. FOllow-up: Oncology on . Prednisone taper for COPD, Dr. Masters in 1-2 days. Use Nebulizer 4X daily for 4 days and then as needed. Patient seen and examined at bedside. Breathing is much better, up and walking in the hallways. Has his nebulizer and supplies at home. Vital signs reviewed and stable. General: non toxic, no distress, appears at stated age Derm: warm, dry, diffuse maculopapular rash with convolesence on the abdomen Head: atraumatic, normocephalic, symmetric Eyes: EOMI, no lid lag, anicteric sclera Mouth: no lip lesion, mucus membranes moist Cardiovascular: S1S2 reg, no murmur, positive posterior tibial pulse bilateral, Lungs: Decreased bs bilateral, no rhonchi, no rales , no accessory muscle use Abdominal: soft, nontender to palpation, no guarding, no appreciable organomegaly Ext: no gross muscle atrophy, no edema, no contractures Neuro: CN II-XI grossly intact, no focal neuro deficits Psych: Alert, oriented, appropriate affect A total of 37 minutes of time were spent preparing this complex discharge summa ry . Patient Condition at Discharge: Stable Plan - Discharge Summary Discharge Rx Participant: No New Discharge Prescriptions: New predniSONE [Deltasone] 0 mg PO DIRECTED #30 tab guaiFENesin [Mucinex] 600 mg PO Q12HR tablet Continue Tiotropium Cory [Spiriva] 1 cap INHALATION RT-DAILY PARoxetine [Paxil] 20 mg PO HS Albuterol Sulfate [Proair Hfa] 2 puff INHALATION RT-Q6H PRN PRN Reason: Shortness Of Breath Omeprazole 40 mg PO DAILY Fluticasone/Salmeterol [Advair 250-50 Diskus] 1 puff INHALATION RT-BID Cyclobenzaprine [Flexeril] 10 mg PO HS PRN PRN Reason: Muscle Pain Aspirin 325 mg PO DAILY #30 tab Albuterol Nebulized [Ventolin Nebulized] 2.5 mg INHALATION RT-QID PRN PRN Reason: Shortness Of Breath Ferrous Sulfate [Iron (65 MG Elemental)] 325 mg PO Q48H [place]-3 Fatty Acids/Fish Oil [Fish Oil 1,000 mg Softgel] 1 cap PO DAILY Ascorbic Acid [Vitamin C] 1,000 mg PO DAILY Gabapentin [Neurontin] 100 mg PO HS Vitamin B Complex 1 cap PO DAILY Discontinued Cholecalciferol [Vitamin D3 (25 Mcg = 1000 Iu)] 25 mcg PO DAILY #30 tablet Multivitamins, Thera [Multivitamin (formulary)] 1 tab PO DAILY Inulin/Chromium Picolinate [Fiber Gummies Chew] 4 tab PO DAILY Discharge Medication List Albuterol Sulfate [Proair Hfa] 2 puff INHALATION RT-Q6H PRN 09/23/20 [History] Cyclobenzaprine [Flexeril] 10 mg PO HS PRN 09/23/20 [History] Fluticasone/Salmeterol [Advair 250-50 Diskus] 1 puff INHALATION RT-BID 09/23/20 [History] Omeprazole 40 mg PO DAILY 09/23/20 [History] PARoxetine [Paxil] 20 mg PO HS 09/23/20 [History] Tiotropium Cory [Spiriva] 1 cap INHALATION RT-DAILY 09/23/20 [History] Aspirin 325 mg PO DAILY #30 tab 09/27/20 [Rx] Ascorbic Acid [Vitamin C] 1,000 mg PO DAILY 04/24/21 [History] Albuterol Nebulized [Ventolin Nebulized] 2.5 mg INHALATION RT-QID PRN 07/18/21 [History] Ferrous Sulfate [Iron (65 MG Elemental)] 325 mg PO Q48H 07/18/21 [History] Gabapentin [Neurontin] 100 mg PO HS 07/18/21 [History] [place]-3 Fatty Acids/Fish Oil [Fish Oil 1,000 mg Softgel] 1 cap PO DAILY 07/21/21 [History] Vitamin B Complex 1 cap PO DAILY 07/21/21 [History] guaiFENesin [Mucinex] 600 mg PO Q12HR tablet 07/25/21 [Rx] predniSONE [Deltasone] 0 mg PO DIRECTED #30 tab 07/25/21 [Rx] Follow up Appointment(s)/Referral(s): Mikhail Masters MD [Primary Care Provider] - 07/27/21 2:00 pm Lance Azar MD [STAFF PHYSICIAN] - 08/02/21 11:30 am (follow-up Kemi Castro 07/28/21 for labs and IV fluids in office. ) Jeff Adair MD [STAFF PHYSICIAN] - 08/08/21 3:40 pm (Cystoscopy ) Patient Instructions/Handouts: COPD (Chronic Obstructive Pulmonary Disease) (DC), Dyspnea (DC), Chronic Lung Disease and Infection Prevention (DC) Activity/Diet/Wound Care/Special Instructions: Activity: as tolerated Diet: heart healthy Special Instructions: nebulizer 4 times daily for the next 4 days then 4 times daily as needed Discharge Disposition: HOME SELF-CARE
[2021-07-25 20:43] LABS: Protein, Total 6.9 g/dL (6.2-8.2)
[2021-07-26 10:40] LABS: Free Kappa Lt Chain Qnt, Serum <0.06 mg/dL (0.33-1.94)
[2021-07-27 12:47] LABS: Albumin 3.99 g/dL (3.80-4.90); Gamma Globulin 1.31 g/dL (0.70-1.50)
== END 2021-07-25 16:16 | disposition home or self-care (01) ==
LOC: EC 16:50 → INTOOBSV 21:28 → 3SCARD 21:28 → UNDODISIN 07-25 16:16
PROVIDERS: ADMIT Internal Medicine; ATTEND Internal Medicine
DX: J43.9 Emphysema, unspecified (principal); C91.10 Chronic lymphocytic leukemia of B-cell type not having achieved remission; D68.62 Lupus anticoagulant syndrome; N17.9 Acute kidney failure, unspecified; N18.30 Chronic kidney disease, stage 3 unspecified; E83.52 Hypercalcemia; D50.0 Iron deficiency anemia secondary to blood loss (chronic); R79.89 Other specified abnormal findings of blood chemistry; N28.89 Other specified disorders of kidney and ureter; L30.9 Dermatitis, unspecified; F41.9 Anxiety disorder, unspecified; F32.A Depression, unspecified; Z20.822 Contact with and (suspected) exposure to COVID-19; Z79.82 Long term (current) use of aspirin; Z79.51 Long term (current) use of inhaled steroids; Z79.899 Other long term (current) drug therapy; Z88.0 Allergy status to penicillin; Z86.16 Personal history of COVID-19; Z90.49 Acquired absence of other specified parts of digestive tract; Z87.891 Personal history of nicotine dependence; Z87.19 Personal history of other diseases of the digestive system; Z98.890 Other specified postprocedural states; Z82.49 Family history of ischemic heart disease and other diseases of the circulatory system
CPT/HCPCS: 96376 ×3; 96361; 96366 ×4; 96372 ×2; 96375; 96365; 99285; 36415; 94640 ×9; 94760 ×2; 93005; 83921; 85379; 80053 ×3; 80048 ×2; 84443; 82330; 82607; 82728; 82746; 83540; 83550; 83615 ×2; 83735 ×3; 84100 ×2; 84550 ×2; 84484; 85025 ×4; 85027; 85610 ×2; 85730; 82784 ×4; 84165; 82306; 83010; 83970; 86334; 83883; 87635; 71046 ×2; 93970; 78582; G0378 ×5; A9540; A9567; J2930 ×2; J1650 ×2; J1644 ×3; J7512 ×3

== ENCOUNTER 2022-03-18 04:51 | Inpatient (IN) | payer BC, OTHER ==
[2022-03-18] MEDS ORDERED: ALBUTEROL NEBULIZED 2.5 MG/3 ML INHALATION STA (05:50)
[2022-03-18] MEDS ORDERED: HYDROmorphone 0.5 MG/0.5 ML SYRINGE IVP STA ×2 (06:25→07:48)
[2022-03-18] MEDS ORDERED: SODIUM CHLORIDE 0.9% 500 ML 500 ML IV STA (06:25)
--- NOTE | 2022-03-18 06:32 | ED ---
Abdominal Pain HPI - General Chief Complaint: Abdominal Pain Stated Complaint: Abd Pain Time Seen by Provider: 03/18/22 06:20 Source: patient, RN notes reviewed, old records reviewed Mode of arrival: ambulatory Limitations: no limitations - History of Present Illness Initial Comments: 61-year-old male presents emergency room with left lower quadrant abdominal pain for the past couple of days. He denies any fevers. States he has been having diarrhea. No vomiting. Denies any chest pain. He states that he's also been short of breath for the past couple of weeks. His oxygen level at home has been as low as 77%. He does have a history of COPD and uses 3 L of nasal cannula at night but has been using oygen during the day. He also has a history of leukemia. MD Complaint: abdominal pain -: days(s) (2) Location: LLQ Radiation: none Consistency: constant Improves With: nothing Worsens With: movement, other (palpation) Associated Symptoms: diarrhea - Related Data Home Medications Medication Instructions Recorded Confirmed Albuterol Sulfate [Proair Hfa] 2 puff INHALATION RT-Q6H PRN 09/23/20 03/18/22 Cyclobenzaprine [Flexeril] 10 mg PO HS PRN 09/23/20 03/18/22 Fluticasone Propion/Salmeterol 1 puff INHALATION RT-BID 09/23/20 03/18/22 [Advair 250-50 Diskus] Omeprazole 20 mg PO BID 09/23/20 03/18/22 PARoxetine [Paxil] 20 mg PO HS 09/23/20 03/18/22 Tiotropium [place] [Spiriva] 1 cap INHALATION RT-DAILY 09/23/20 03/18/22 Ascorbic Acid [Vitamin C] 1,000 mg PO DAILY 04/24/21 03/18/22 Albuterol Nebulized [Ventolin 2.5 mg INHALATION RT-QID PRN 07/18/21 03/18/22 Nebulized] Ferrous Sulfate [Iron (65 MG 325 mg PO DAILY 07/18/21 03/18/22 Elemental)] Gabapentin [Neurontin] 100 mg PO BID 07/18/21 03/18/22 [place]-3 Fatty Acids/Fish Oil [Fish 1 cap PO DAILY 07/21/21 03/18/22 Oil 1,000 mg Softgel] Vitamin B Complex 1 cap PO DAILY 07/21/21 03/18/22 Acalabrutinib [Calquence] 100 mg PO BID 03/18/22 03/18/22 Furosemide [Lasix] 20 mg PO DAILY 03/18/22 03/18/22 clonazePAM [KlonoPIN] 0.5 mg PO BID PRN 03/18/22 03/18/22 ondansetron HCL [Zofran] 8 mg PO TID PRN 03/18/22 03/18/22 Previous Rx's Medication Instructions Recorded Aspirin 325 mg PO DAILY #30 tab 09/27/20 Allergies Allergy/AdvReac Type Severity Reaction Status Date / Time Penicillins Allergy Unknown Verified 03/18/22 12:06 Childhood Review of Systems ROS Statement: Those systems with pertinent positive or pertinent negative responses have been documented in the HPI. ROS Other: All systems not noted in ROS Statement are negative. Past Medical History Past Medical History: Cancer, COPD Additional Past Medical History / Comment(s): Chronic lymphocytic leukemia, emphysema, plueral effusion 09/23/2020, covid 10/2020, lupus anticoagulant History of Any Multi-Drug Resistant Organisms: None Reported Past Surgical History: Appendectomy, Orthopedic Surgery Additional Past Surgical History / Comment(s): rt knee Past Anesthesia/Blood Transfusion Reactions: No Reported Reaction Past Psychological History: Anxiety, Depression Smoking Status: Former smoker Past Alcohol Use History: None Reported Past Drug Use History: None Reported - Past Family History Family Family Medical History: Hypertension General Exam Limitations: no limitations General appearance: alert, in no apparent distress Head exam: Present: atraumatic Neck exam: Present: normal inspection. Absent: tenderness, meningismus Respiratory exam: Present: normal lung sounds bilaterally. Absent: respiratory distress, wheezes, rales, rhonchi, stridor, chest wall tenderness, accessory muscle use, decreased breath sounds Cardiovascular Exam: Present: regular rate, normal rhythm GI/Abdominal exam: Present: soft, tenderness (LLQ), other (Petechiae left lower quadrant scattered). Absent: distended, guarding, rebound, rigid Extremities exam: Present: normal inspection, normal capillary refill. Absent: pedal edema Back exam: Present: normal inspection. Absent: tenderness, CVA tenderness (R), CVA tenderness (L) Neurological exam: Present: alert, oriented X3 Psychiatric exam: Present: normal affect, normal mood Skin exam: Present: warm, dry, other (Multiple areas of ecchymosis bilateral forearms ). Absent: cyanosis, diaphoretic Course Vital Signs 03/18/22 03/18/22 03/18/22 04:58 06:06 06:16 Temperature 97.8 F Pulse Rate 81 64 64 Respiratory 18 Rate Blood Pressure 108/70 O2 Sat by Pulse 94 L Oximetry 03/18/22 03/18/22 06:59 10:00 Temperature 98.6 F Pulse Rate 78 78 Respiratory 18 18 Rate Blood Pressure 114/64 110/68 O2 Sat by Pulse 93 L 98 Oximetry Medical Decision Making - Medical Decision Making Patient presents with shortness of breath and left lower quadrant abdominal pain. He has a history of CLL. States that he has an appointment with Dr. Chen next week. States has been having shortness of breath with worsening oxygen saturations at home of 77%, states using his oxygen more during the day rather than just at night. White blood cell count was 18.9 hemoglobin and hematocrit are stable. BUN and creatinine elevated however the patient does have history of elevation of cre atinine of 1.[address] shows left perinephric retroperitoneal soft tissue mass versus hematoma. Subtle findings on prior CT 2020. Due to patient's creatinine patient is unable to perform CT with contrast. There is also overlying worsening lymphedema throughout the abdomen extending into the mediastinum with persistent splenomegaly. Patient does have a history of CLL in splenomegaly. There is also evidence of bilateral pleural effusions left greater than right which is likely the cause of the patient's shortness of breath in combination with his COPD. Chest x-ray shows a left lower lobe pneumonia. He was given Zithromax IV. Coronavirus testing is negative. Patient will be admitted for splenomegaly with perinephritic mass, pneumonia, COPD. Case discussed with Dr. Winston. Patient is able to this plan of care. - Lab Data Result diagrams: 03/18/22 06:34 03/18/22 06:34 Lab Results 03/18/22 03/18/22 03/18/22 Range/Units 06:34 06:34 06:34 WBC 18.9 H (3.8-10.6) k/uL RBC 6.05 H (4.30-5.90) m/uL Hgb 14.1 (13.0-17.5) gm/dL Hct 48.0 (39.0-53.0) % MCV 79.3 L (80.0-100.0) fL MCH 23.3 L (25.0-35.0) pg MCHC 29.4 L (31.0-37.0) g/dL RDW 18.3 H (11.5-15.5) % Plt Count 362 (150-450) k/uL MPV 7.9 Neutrophils % (Manual) 32 % Lymphocytes % (Manual) 60 % Monocytes % (Manual) 6 % Eosinophils % (Manual) 2 % Neutrophils # (Manual) 6.05 (1.3-7.7) k/uL Lymphocytes # (Manual) 11.34 H (1.0-4.8) k/uL Monocytes # (Manual) 1.13 H (0-1.0) k/uL Eosinophils # (Manual) 0.38 (0-0.7) k/uL Nucleated RBCs 0 (0-0) /100 WBC Manual Slide Review Performed Hypochromasia Marked Poikilocytosis (manual Present Anisocytosis Slight Microcytosis Slight PT 34.6 H (9.0-12.0) sec INR 3.5 H (<1.2) APTT 59.6 H (22.0-30.0) sec Sodium 137 (137-145) mmol/L Potassium 4.2 (3.5-5.1) mmol/L Chloride 106 (98-107) mmol/L Carbon Dioxide 20 L (22-30) mmol/L Anion Gap 11 mmol/L BUN 26 H (9-20) mg/dL Creatinine 1.72 H (0.66-1.25) mg/dL Est GFR (CKD-EPI)AfAm 48 (>60 ml/min/1.73 sqM) Est GFR (CKD-EPI)NonAf 41 (>60 ml/min/1.73 sqM) Glucose 107 H (74-99) mg/dL Plasma Lactic Acid Justin (0.7-2.0) mmol/L Calcium 11.7 H (8.4-10.2) mg/dL Total Bilirubin 0.9 (0.2-1.3) mg/dL AST 29 (17-59) U/L ALT 10 (4-49) U/L Alkaline Phosphatase 77 (38-126) U/L Troponin I (0.000-0.034) ng/mL Total Protein 6.2 L (6.3-8.2) g/dL Albumin 4.1 (3.5-5.0) g/dL Amylase 55 (30-110) U/L Lipase 67 (23-300) U/L Coronavirus (PCR) (Not Detectd) 03/18/22 03/18/22 03/18/22 Range/Units 06:34 06:34 06:40 WBC (3.8-10.6) k/uL RBC (4.30-5.90) m/uL Hgb (13.0-17.5) gm/dL Hct (39.0-53.0) % MCV (80.0-100.0) fL MCH (25.0-35.0) pg MCHC (31.0-37.0) g/dL RDW (11.5-15.5) % Plt Count (150-450) k/uL MPV Neutrophils % (Manual) % Lymphocytes % (Manual) % Monocytes % (Manual) % Eosinophils % (Manual) % Neutrophils # (Manual) (1.3-7.7) k/uL Lymphocytes # (Manual) (1.0-4.8) k/uL Monocytes # (Manual) (0-1.0) k/uL Eosinophils # (Manual) (0-0.7) k/uL Nucleated RBCs (0-0) /100 WBC Manual Slide Review Hypochromasia Poikilocytosis (manual Anisocytosis Microcytosis PT (9.0-12.0) sec INR (<1.2) APTT (22.0-30.0) sec Sodium (137-145) mmol/L Potassium (3.5-5.1) mmol/L Chloride (98-107) mmol/L Carbon Dioxide (22-30) mmol/L Anion Gap mmol/L BUN (9-20) mg/dL Creatinine (0.66-1.25) mg/dL Est GFR (CKD-EPI)AfAm (>60 ml/min/1.73 sqM) Est GFR (CKD-EPI)NonAf (>60 ml/min/1.73 sqM) Glucose (74-99) mg/dL Plasma Lactic Acid Justin 2.0 (0.7-2.0) mmol/L Calcium (8.4-10.2) mg/dL Total Bilirubin (0.2-1.3) mg/dL AST (17-59) U/L ALT (4-49) U/L Alkaline Phosphatase (38-126) U/L Troponin I <0.012 (0.000-0.034) ng/mL Total Protein (6.3-8.2) g/dL Albumin (3.5-5.0) g/dL Amylase (30-110) U/L Lipase (23-300) U/L Coronavirus (PCR) Not Detected (Not Detectd) Disposition Clinical Impression: Left kidney mass, Splenomegaly, CLL (chronic lymphocytic leukemia), Pleural effusion, Pneumonia Disposition: ADMITTED IP TO THIS HOSP Decision Date: 03/18/22 Decision Time: 08:12
[2022-03-18 06:56] LABS: Anisocytosis Slight; HGB 14.1 gm/dL (13.0-17.5); Hypochromasia Marked; MCH 23.3 pg (25.0-35.0); MCHC 29.4 g/dL (31.0-37.0); MCV 79.3 fL (80.0-100.0); Mean Platelet Volume 7.9; Microcytosis Slight; Platelet Count 362 k/uL (150-450); RBC 6.05 m/uL (4.30-5.90); RDW 18.3 % (11.5-15.5); WBC 18.9 k/uL (3.8-10.6)
[2022-03-18 07:05] LABS: INR 3.5 (<1.2); Partial Thromboplastin Time 59.6 sec (22.0-30.0); Prothrombin Time 34.6 sec (9.0-12.0)
[2022-03-18 07:10] LABS: Albumin 4.1 g/dL (3.5-5.0); Calcium 11.7 mg/dL (8.4-10.2); Potassium 4.2 mmol/L (3.5-5.1); Total Bilirubin 0.9 mg/dL (0.2-1.3); Total Protein 6.2 g/dL (6.3-8.2)
--- NOTE | 2022-03-18 07:58 | CT ---
EXAMINATION TYPE: CT abdomen pelvis wo con CT DLP: 421.3 mGycm, Automated exposure control for dose reduction was used. DATE OF EXAM: 03/18/2022 7:28 AM COMPARISON: CT chest abdomen pelvis 07/18/2021 CLINICAL INDICATION:Male, 61 years old with history of abdominal pain; Left lower quadrant pain TECHNIQUE: Standard CT of the abdomen and pelvis without IV or oral contrast. Lack of IV or oral co ntrast limits evaluation of solid and hollow organ viscera. Coronal and sagittal reformats were perfo rmed. FINDINGS: LOWER CHEST: Interval increase in size of left pleural effusion. Interval increase in soft tissue yesenia rounding the aorta extending up into the mediastinum. Atelectasis changes seen adjacent to the pleura l effusions. ABDOMEN LIVER: Unremarkable GALLBLADDER AND BILE DUCTS: Unremarkable. PANCREAS: Unremarkable. SPLEEN: Spleen is enlarged measuring up to 20.1 x 13.3 cm which may be fractionally smaller than prio r. ADRENAL GLANDS: Right adrenal gland is unremarkable. The left is suboptimally visualized given surrou nding lymphadenopathy. KIDNEYS AND URETERS: No evidence of hydronephrosis or renal calculus. Adjacent left retroperitoneal h ematoma as described below. PELVIS BLADDER: Unremarkable REPRODUCTIVE: Unremarkable. ABDOMEN & PELVIS STOMACH AND BOWEL: Scattered clonic diverticula are present. No evidence of colonic diverticulitis. N o evidence of bowel obstruction. Surgical clips are seen near the cecum. PERITONEUM: There is a left perinephric heterogenous soft tissue density surrounding the left upper q uadrant and left kidney. This area grossly measures 6.8 x 9.5 x 5.3 cm and measures approximately 36 Hounsfield units. This area was suboptimally visualized on prior and on this exam secondary to lack o f IV contrast. VASCULATURE: No evidence of aortic aneurysm. MUSCULOSKELETAL: No acute osseous abnormalities LYMPH NODES: Interval increase in extensive lymphadenopathy both in size and number throughout the ab domen. Examples include Retrocrural measuring 3.9 x 2.8 cm, previously 2.4 x 1.3 cm. Left periaortic measuring 3.1 x 2.7 cm previously 2.5 x 1.4 cm. Right common iliac measuring 1.4 cm in short axis which may be smaller on today's exam however evalua tion is limited from prior without IV contrast. SOFT TISSUE/ABDOMINAL WALL: Unremarkable Findings communicated to Dr. Brooks Manuel, NPC on 03/18/2022 7:[address] Luis A Almanza. IMPRESSION: 1. Left perinephric/retroperitoneal soft tissue suspicious for mass versus hematoma. There may been s ubtle findings on prior in 2020. Further evaluation with MRI with IV contrast could be of benefit. 2. Overall worsening of lymphadenopathy throughout the abdomen and ascending into the mediastinum wit h persistent splenomegaly consistent prior history lymphoma. 3. Increase in bilateral pleural effusions left greater than right.
[2022-03-18 08:54] LABS: Eosinophils # (M) 0.38 k/uL (0-0.7); Lymphocytes # (M) 11.34 k/uL (1.0-4.8); Monocytes # (M) 1.13 k/uL (0-1.0); Neutrophils # (M) 6.05 k/uL (1.3-7.7); Neutrophils % (M) 32 %; Nucleated Red Blood Cells 0 /100 WBC (0-0); Total Cells Counted 100
[2022-03-18 08:55] LABS: Poikilocytosis (M) Present
--- NOTE | 2022-03-18 09:26 | XR ---
EXAMINATION TYPE: XR chest 2V DATE OF EXAM: 03/18/2022 8:33 AM COMPARISON: Chest radiographs from 08/03/2021 TECHNIQUE: XR chest 2V Frontal and lateral views of the chest. CLINICAL INDICATION:Male, 61 years old with history of MIRIAM; FINDINGS: Lungs/Pleura: Left basilar airspace opacities. There is no evidence of pleural effusion or pneumothor ax. Pulmonary vascularity: Unremarkable. Heart/mediastinum: Cardiomediastinal silhouette is unremarkable. Musculoskeletal: No acute osseous pathology. IMPRESSION: Left lower lobe hazy opacities concerning for developing pneumonia..
[2022-03-18] MEDS ORDERED: AZITHROMYCIN 500 MG in SODIUM CHLORIDE 0.9% 250 ML IVPB STA (09:32)
[2022-03-18] MEDS ORDERED: NALOXONE 0.4 MG/ML 1 ML VIAL IV PRN ×2 (09:44→10:31)
[2022-03-18] MEDS ORDERED: HYDROmorphone 0.5 MG/0.5 ML SYRINGE IVP PRN (09:44)
[2022-03-18] MEDS ORDERED: MELATONIN 3 MG TABLET PO PRN (10:31)
[2022-03-18] MEDS ORDERED: ONDANSETRON 4 MG/2 ML VIAL IVP PRN (10:31)
[2022-03-18] MEDS ORDERED: PANTOPRAZOLE 40 MG/10 ML VIAL IVP SCH (10:45)
[2022-03-18] MEDS ORDERED: PHYTONADIONE 5 MG in SODIUM CHLORIDE 0.9% 50 ML IVPB STA (10:47)
--- NOTE | 2022-03-18 11:00 | US ---
EXAMINATION TYPE: US abdomen limited DATE OF EXAM: 03/18/2022 COMPARISON: Same day CT CLINICAL HISTORY: LEFT RENAL MASS VS PERINEPHRIC HEMATOMA. LUQ pain, pt states having leukemia EXAM MEASUREMENTS: Spleen: 19.2 cm Left Kidney: 11.8 x 4.8 x 3.8 cm 1. Spleen: Enlarged 2. Left Kidney: No evidence of hydro Complex area upper/lateral pole of left kidney= 11.1 x 5.8 x 9.3 cm/ this area has vascularity/ cooper ble to determine if this area communicates/attached to the left kidney . IMPRESSION: Left perinephric complex vascular is felt to represent a mass given internal vascularity. Further dixon luation with MRI with IV contrast is recommended
--- NOTE | 2022-03-18 11:26 | P.CNPUL ---
History of Present Illness Consult date: 03/18/22 Reason for consult: COPD History of present illness: This is a 61-year-old male patient, known history of COPD, coming in with a left flank pain has been going on for few weeks with progressive worsening over the past few days. No nausea. No vomiting. No hematemesis. No hematuria. No shortness of breath other than his chronic dyspnea. He is known to have COPD maintained on a combination of Advair and Spiriva on outpatient basis. He also carries a diagnosis of CLL that was followed up by Dr. Faulkner. He is known to have extensive lymphadenopathy related to his CLL. Based on the most recent oncology evaluation, there has been progression his CLL based on progression his lymphadenopathy. In the ED, the patient was found to have a hemoglobin of 14.1 with a white cell count of 18.9. Coagulation profile was abnormal and the patient has been quite neuropathic even prior admissions. No known history of chronic liver disease although the patient has drank alcohol many years back in excessive amounts. He has chronic kidney disease in the creatinine is at 1.7 with a BUN of 26 and creatinine of 1.7. Sodium is at 137. COVID 19 testing is negative. Electrodes are normal. Calcium level was 11.7. A CAT scan of the abdomen and pelvis was done and it showed a left perinephric/retroperitoneal soft tissue density which is either a mass versus hematoma and this was not present on previous evaluation or there has been probably a subtle finding in 2020. There is also overall worsening in the lymphadenopathy about the abdomen and ascending into the mediastinum with splenomegaly. The patient also has small bilateral pleural effusions. The patient is currently on room air oxygen. Ultrasound of the left kidney was ordered. Review of Systems Constitutional: Reports fatigue, Reports weakness, Reports weight loss Eyes: denies as per HPI, denies blurred vision, denies bulging eye, denies decreased vision, denies diplopia, denies discharge, denies dry eye, denies irritation, denies itching, denies pain, denies photophobia, denies loss of peripheral vision, denies loss of vision, denies tunnel vision/blind spots Ears: deny: decreased hearing, ear discharge, earache, tinnitus Ears, nose, mouth and throat: Reports as per HPI Breasts: absent: as per HPI, gynecomastia Cardiovascular: Reports decreased exercise tolerance, Reports dyspnea on exertion Respiratory: Reports dyspnea Gastrointestinal: Reports as per HPI Genitourinary: Reports as per HPI Musculoskeletal: Reports as per HPI Musculoskeletal: absent: ankle pain, ankle stiffness, ankle swelling Integumentary: Reports as per HPI Neurological: Reports as per HPI Psychiatric: Reports as per HPI Endocrine: Reports as per HPI Hematologic/Lymphatic: Reports as per HPI Allergic/Immunologic: Reports as per HPI Past Medical History Past Medical History: Cancer, COPD Additional Past Medical History / Comment(s): Chronic lymphocytic leukemia, emphysema, plueral effusion 09/23/2020, covid 10/2020, lupus anticoagulant History of Any Multi-Drug Resistant Organisms: None Reported Past Surgical History: Appendectomy, Orthopedic Surgery Additional Past Surgical History / Comment(s): rt knee Past Anesthesia/Blood Transfusion Reactions: No Reported Reaction Past Psychological History: Anxiety, Depression Smoking Status: Former smoker Past Alcohol Use History: None Reported Past Drug Use History: None Reported - Past Family History Family Family Medical History: Hypertension Medications and Allergies Home Medications Medication Instructions Recorded Confirmed Type Albuterol Sulfate [Proair Hfa] 2 puff INHALATION RT-Q6H PRN 09/23/20 10/19/21 History Cyclobenzaprine [Flexeril] 10 mg PO HS PRN 09/23/20 10/19/21 History Fluticasone Propion/Salmeterol 1 puff INHALATION RT-BID 09/23/20 10/19/21 History [Advair 250-50 Diskus] Omeprazole 40 mg PO DAILY 09/23/20 10/19/21 History PARoxetine [Paxil] 20 mg PO HS 09/23/20 10/19/21 History Tiotropium [place] [Spiriva] 1 cap INHALATION RT-DAILY 09/23/20 10/19/21 History Aspirin 325 mg PO DAILY #30 tab 09/27/20 10/19/21 Rx Ascorbic Acid [Vitamin C] 1,000 mg PO DAILY 04/24/21 10/19/21 History Albuterol Nebulized [Ventolin 2.5 mg INHALATION RT-QID PRN 07/18/21 10/19/21 History Nebulized] Ferrous Sulfate [Iron (65 MG 325 mg PO Q48H 07/18/21 10/19/21 History Elemental)] Gabapentin [Neurontin] 100 mg PO HS 07/18/21 10/19/21 History [place]-3 Fatty Acids/Fish Oil [Fish 1 cap PO DAILY 07/21/21 10/19/21 History Oil 1,000 mg Softgel] Vitamin B Complex 1 cap PO DAILY 07/21/21 10/19/21 History guaiFENesin [Mucinex] 600 mg PO Q12HR tablet 07/25/21 10/19/21 Rx predniSONE [Deltasone] 0 mg PO DIRECTED #30 tab 07/25/21 10/19/21 Rx Allergies Allergy/AdvReac Type Severity Reaction Status Date / Time Penicillins Allergy Unknown Verified 03/18/22 05:01 Childhood Physical Exam Vitals: Vital Signs Temp Pulse Resp BP Pulse Ox 03/18/22 10:00 98.6 F 78 18 110/68 98 03/18/22 06:59 78 18 114/64 93 L 03/18/22 06:16 64 03/18/22 06:06 64 03/18/22 04:58 97.8 F 81 18 108/70 94 L Intake and Output 03/17/22 03/18/22 03/18/22 22:59 06:59 14:59 Other: Weight 72.575 kg Vital signs reviewed and stable. The patient is currently on room in oxygen General: non toxic, no distress, appears at stated age Derm: warm, dry, diffuse maculopapular rash with convolesence on the abdomen Head: atraumatic, normocephalic, symmetric Eyes: EOMI, no lid lag, anicteric sclera Mouth: no lip lesion, mucus membranes moist Cardiovascular: S1S2 reg, no murmur, positive posterior tibial pulse bilateral, Lungs: Decreased bs bilateral, no rhonchi, no rales , no accessory muscle use Abdominal: soft, nontender to palpation, no guarding, no appreciable organomegaly Ext: no gross muscle atrophy, no edema, no contractures Neuro: CN II-XI grossly intact, no focal neuro deficits Psych: Alert, oriented, appropriate affect Results - Laboratory Findings CBC and BMP: 03/18/22 06:34 03/18/22 06:34 PT/INR, D-dimer PT 34.6 sec (9.0-12.0) H 03/18/22 06:34 INR 3.5 (<1.2) H 03/18/22 06:34 Abnormal lab findings: Abnormal Labs 0703/18/22 03/18/22 06:34 06:34 06:34 WBC 18.9 H RBC 6.05 H MCV 79.3 L MCH 23.3 L MCHC 29.4 L RDW 18.3 H Lymphocytes # (Manual) 11.34 H Monocytes # (Manual) 1.13 H PT 34.6 H INR 3.5 H APTT 59.6 H Carbon Dioxide 20 L BUN 26 H Creatinine 1.72 H Glucose 107 H Calcium 11.7 H Total Protein 6.2 L Assessment and Plan Plan: Left flank pain probably due to an enlarging complex mass in the left perinephr ic area, consider lymphoma or conglomeration of lymphadenopathy as part of this patient's history of CLL. Doubt acute hematoma or bleeding. Chronic lymphocytic leukemia/CLL with history of disease progression with extensive abdominal and mediastinal lymphadenopathy Small bilateral pleural effusions Lupus anticoagulant with underlying abnormal correlation profile on blood work COPD maintained on examination of [employer] on outpatient basis Previous history of COVID 19 infection in October 2020 Chronic anemia Coagulopathy, likely secondary to a positive lupus anticoagulant mild hypercalcemia Plan Ultrasound of the kidney with possibly an MRI of the left kidney to rule out any mass causing fullness and pain in the left flank area No evidence of any pneumonia Patient is known to have COPD he was currently inactive in stable Urology consult and hematology oncology consultation We'll continue to follow
[2022-03-18 11:30] LABS: C Reactive Protein 0.6 mg/dL (<1.0)
--- NOTE | 2022-03-18 11:40 | P.HPIM ---
History of Present Illness H&P Date: 03/18/22 Chief Complaint: Left flank pain History of present illness: his is a 61-year-old male patient, known history of CLL on Calquence, chronic kidney stage III, COPD, coming in with a left flank pain has been going on for few weeks with progressive worsening over the past few days. Patient is nauseous but no vomiting. No hematemesis. No hematuria. Patient was taken [id number] naproxen and ibuprofen for his pain control for the past few days. He stated that he was supposed to follow-up with Dr. Faulkner from oncology last month but he canceled his appointment. Patient has a chronic exertional dyspnea but no changes. He denies any cough. He denies any fever or chills.. He is known to have COPD maintained on a combination of Advair and Spiriva on outpatient basis. He also carries a diagnosis of CLL that was followed up by Dr. Faulkner. He is known to have extensive lymphadenopathy related to his CLL. Based on the most recent oncology evaluation, there has been progression his CLL based on progression his lymphadenopathy. In the ED, the patient was found to have a hemoglobin of 14.1 with a white cell count of 18.9. Coagulation profile was abnormal and the patient has been quite neuropathic even prior admissions. No known history of chronic liver disease although the patient has drank alcohol many years back in excessive amounts. He has chronic kidney disease in the creatinine is at 1.7 with a BUN of 26 and creatinine of 1.7. Sodium is at 137. COVID 19 testing is negative. Electrodes are normal. Calcium level was 11.7. A CAT scan of the abdomen and pelvis was done and it showed a left perinephric/retroperitoneal soft tissue density which is either a mass versus hematoma and this was not present on previous evaluation or there has been probably a subtle finding in 2020. There is also overall worsening in the lymphadenopathy about the abdomen and ascending into the mediastinum with splenomegaly. The patient also has small bilateral pleural effusions. The patient is currently on room air oxygen. Ultrasound of the left kidney was ordered. Review of system: All 14 review of systems evaluated and all negative except for above. Physical examination: General: Appears older than his stated age. Appears malnourished and cachectic. Derm: warm, dry Head: atraumatic, normocephalic, symmetric Eyes: EOMI, no lid lag, anicteric sclera Mouth: no lip lesion, mucus membranes moist Cardiovascular: S1S2 reg, no murmur, positive posterior tibial pulse bilateral, Lungs: Diminished air entry bilaterally Abdominal: soft, tender left flank without rebound tenderness or rigidity positive bowel sounds. Ext: no gross muscle atrophy, no edema, no contractures Neuro: CN II-XI grossly intact, no focal neuro deficits Psych: Alert, oriented, appropriate affect Assessment and plan: #Left flank pain #Left perinephric mass, questionable hematoma -Computed tomography scan of the abdomen without contrast showed complex mass in the left perinephric area could be secondary to his lymphoma/CLL. Urology and hematology oncology consulted -Questionable perinephric bleeding. Patient was stable. INR and PTT elevated. Vascular surgery consulted -Abdominal ultrasound still pending -Patient is not a candidate for CT IV contrast secondary to his renal failure -Keep the patient nothing by mouth -Pain control with IV Dilaudid -Antiemetics as needed #Chronic coagulopathy -Possibly secondary to CLL #Chronic lymphocytic leukemia -Splenomegaly abdominal and mediastinal lymphadenopathy -Possible lymphoma transformation -Patient on Calquence -Pathology oncology consulted #Acute kidney injury -Could be secondary to NSAID use or prerenal as a ISA -Hydrate the patient -Nephrology consulted #Chronic kidney stage III #Lupus anticogulant #COPD without exacerbation #Mild hypercalcemia #Chronic anemia #Severe protein Malnutrition #Full code Past Medical History Past Medical History: Cancer, COPD Additional Past Medical History / Comment(s): Chronic lymphocytic leukemia, emphysema, plueral effusion 09/23/2020, covid 10/2020, lupus anticoagulant History of Any Multi-Drug Resistant Organisms: None Reported Past Surgical History: Appendectomy, Orthopedic Surgery Additional Past Surgical History / Comment(s): rt knee Past Anesthesia/Blood Transfusion Reactions: No Reported Reaction Past Psychological History: Anxiety, Depression Smoking Status: Former smoker Past Alcohol Use History: None Reported Past Drug Use History: None Reported - Past Family History Family Family Medical History: Hypertension Medications and Allergies Home Medications Medication Instructions Recorded Confirmed Type Albuterol Sulfate [Proair Hfa] 2 puff INHALATION RT-Q6H PRN 09/23/20 10/19/21 History Cyclobenzaprine [Flexeril] 10 mg PO HS PRN 09/23/20 10/19/21 History Fluticasone Propion/Salmeterol 1 puff INHALATION RT-BID 09/23/20 10/19/21 History [Advair 250-50 Diskus] Omeprazole 40 mg PO DAILY 09/23/20 10/19/21 History PARoxetine [Paxil] 20 mg PO HS 09/23/20 10/19/21 History Tiotropium [place] [Spiriva] 1 cap INHALATION RT-DAILY 09/23/20 10/19/21 History Aspirin 325 mg PO DAILY #30 tab 09/27/20 10/19/21 Rx Ascorbic Acid [Vitamin C] 1,000 mg PO DAILY 04/24/21 10/19/21 History Albuterol Nebulized [Ventolin 2.5 mg INHALATION RT-QID PRN 07/18/21 10/19/21 History Nebulized] Ferrous Sulfate [Iron (65 MG 325 mg PO Q48H 07/18/21 10/19/21 History Elemental)] Gabapentin [Neurontin] 100 mg PO HS 07/18/21 10/19/21 History [place]-3 Fatty Acids/Fish Oil [Fish 1 cap PO DAILY 07/21/21 10/19/21 History Oil 1,000 mg Softgel] Vitamin B Complex 1 cap PO DAILY 07/21/21 10/19/21 History guaiFENesin [Mucinex] 600 mg PO Q12HR tablet 07/25/21 10/19/21 Rx predniSONE [Deltasone] 0 mg PO DIRECTED #30 tab 07/25/21 10/19/21 Rx Allergies Allergy/AdvReac Type Severity Reaction Status Date / Time Penicillins Allergy Unknown Verified 03/18/22 05:01 Childhood Physical Exam Vitals: Vital Signs Temp Pulse Resp BP Pulse Ox 03/18/22 10:00 98.6 F 78 18 110/68 98 03/18/22 06:59 78 18 114/64 93 L 03/18/22 06:16 64 03/18/22 06:06 64 03/18/22 04:58 97.8 F 81 18 108/70 94 L Intake and Output 03/17/22 03/18/22 03/18/22 22:59 06:59 14:59 Other: Weight 72.575 kg Results CBC & Chem 7: 03/18/22 06:34 03/18/22 06:34 Labs: Abnormal Lab Results - Last 24 Hours (Table) 0703/18/22 03/18/22 Range/Units 06:34 06:34 06:34 WBC 18.9 H (3.8-10.6) k/uL RBC 6.05 H (4.30-5.90) m/uL MCV 79.3 L (80.0-100.0) fL MCH 23.3 L (25.0-35.0) pg MCHC 29.4 L (31.0-37.0) g/dL RDW 18.3 H (11.5-15.5) % Lymphocytes # (Manual) 11.34 H (1.0-4.8) k/uL Monocytes # (Manual) 1.13 H (0-1.0) k/uL PT 34.6 H (9.0-12.0) sec INR 3.5 H (<1.2) APTT 59.6 H (22.0-30.0) sec Carbon Dioxide 20 L (22-30) mmol/L BUN 26 H (9-20) mg/dL Creatinine 1.72 H (0.66-1.25) mg/dL Glucose 107 H (74-99) mg/dL Calcium 11.7 H (8.4-10.2) mg/dL Total Protein 6.2 L (6.3-8.2) g/dL
[2022-03-18 12:32] LABS: T4, Free (Free Thyroxine) 2.05 ng/dL (0.78-2.19)
--- NOTE | 2022-03-18 12:33 | P.GSCN ---
History of Present Illness Consult date: 03/18/22 History of present illness: Patient is a 61-year-old male with a past medical history of CLL, CK 83, COPD who presented to the hospital with left flank pain that is an worsening. He has extensive lymphadenopathy related to CLL and known splenomegaly. We are asked to see him regarding an abnormal computed tomography scan showing a left perinephric/retroperitoneal soft tissue density which was possibly a hematoma. The patient denies any trauma. He denies any blood in his urine. He denies any lightheadedness. Past Medical History Past Medical History: Cancer, COPD Additional Past Medical History / Comment(s): Chronic lymphocytic leukemia, emphysema, plueral effusion 09/23/2020, covid 10/2020, lupus anticoagulant History of Any Multi-Drug Resistant Organisms: None Reported Past Surgical History: Appendectomy, Orthopedic Surgery Additional Past Surgical History / Comment(s): rt knee Past Anesthesia/Blood Transfusion Reactions: No Reported Reaction Past Psychological History: Anxiety, Depression Smoking Status: Former smoker Past Alcohol Use History: None Reported Past Drug Use History: None Reported - Past Family History Family Family Medical History: Hypertension Medications and Allergies Home Medications Medication Instructions Recorded Confirmed Type Albuterol Sulfate [Proair Hfa] 2 puff INHALATION RT-Q6H PRN 09/23/20 03/18/22 History Cyclobenzaprine [Flexeril] 10 mg PO HS PRN 09/23/20 03/18/22 History Fluticasone Propion/Salmeterol 1 puff INHALATION RT-BID 09/23/20 03/18/22 History [Advair 250-50 Diskus] Omeprazole 20 mg PO BID 09/23/20 03/18/22 History PARoxetine [Paxil] 20 mg PO HS 09/23/20 03/18/22 History Tiotropium [place] [Spiriva] 1 cap INHALATION RT-DAILY 09/23/20 03/18/22 History Aspirin 325 mg PO DAILY #30 tab 09/27/20 03/18/22 Rx Ascorbic Acid [Vitamin C] 1,000 mg PO DAILY 04/24/21 03/18/22 History Albuterol Nebulized [Ventolin 2.5 mg INHALATION RT-QID PRN 07/18/21 03/18/22 History Nebulized] Ferrous Sulfate [Iron (65 MG 325 mg PO DAILY 07/18/21 03/18/22 History Elemental)] Gabapentin [Neurontin] 100 mg PO BID 07/18/21 03/18/22 History [place]-3 Fatty Acids/Fish Oil [Fish 1 cap PO DAILY 07/21/21 03/18/22 History Oil 1,000 mg Softgel] Vitamin B Complex 1 cap PO DAILY 07/21/21 03/18/22 History Acalabrutinib [Calquence] 100 mg PO BID 03/18/22 03/18/22 History Furosemide [Lasix] 20 mg PO DAILY 03/18/22 03/18/22 History clonazePAM [KlonoPIN] 0.5 mg PO BID PRN 03/18/22 03/18/22 History ondansetron HCL [Zofran] 8 mg PO TID PRN 03/18/22 03/18/22 History Allergies Allergy/AdvReac Type Severity Reaction Status Date / Time Penicillins Allergy Unknown Verified 03/18/22 12:06 Childhood Surgical - Exam Vital Signs Temp Pulse Resp BP Pulse Ox 97.8 F 81 18 108/70 94 L 03/18/22 04:58 03/18/22 04:58 03/18/22 04:58 03/18/22 04:58 03/18/22 04:58 Gen. is a pleasant and cooperative chronically ill-appearing male in no acute distress. She does no cephalic, atraumatic, etc. he motion intact. Heart appears. Lungs are clear bilaterally. Abdomen is soft, left upper quadrant fullness. Diffuse tenderness elevation. No clubbing, cyanosis or edema. Results Imaging is reviewed. Labs are reviewed. - Labs 03/18/22 06:34 03/18/22 06:34 Abnormal Lab Results - Last 24 Hours (Table) 03/18/22 03/18/22 03/18/22 Range/Units 06:34 06:34 06:34 WBC 18.9 H (3.8-10.6) k/uL RBC 6.05 H (4.30-5.90) m/uL MCV 79.3 L (80.0-100.0) fL MCH 23.3 L (25.0-35.0) pg MCHC 29.4 L (31.0-37.0) g/dL RDW 18.3 H (11.5-15.5) % Lymphocytes # (Manual) 11.34 H (1.0-4.8) k/uL Monocytes # (Manual) 1.13 H (0-1.0) k/uL PT 34.6 H (9.0-12.0) sec INR 3.5 H (<1.2) APTT 59.6 H (22.0-30.0) sec Carbon Dioxide 20 L (22-30) mmol/L BUN 26 H (9-20) mg/dL Creatinine 1.72 H (0.66-1.25) mg/dL Glucose 107 H (74-99) mg/dL Calcium 11.7 H (8.4-10.2) mg/dL Total Protein 6.2 L (6.3-8.2) g/dL TSH (0.465-4.680) mIU/L 03/18/22 Range/Units 11:05 WBC (3.8-10.6) k/uL RBC (4.30-5.90) m/uL MCV (80.0-100.0) fL MCH (25.0-35.0) pg MCHC (31.0-37.0) g/dL RDW (11.5-15.5) % Lymphocytes # (Manual) (1.0-4.8) k/uL Monocytes # (Manual) (0-1.0) k/uL PT (9.0-12.0) sec INR (<1.2) APTT (22.0-30.0) sec Carbon Dioxide (22-30) mmol/L BUN (9-20) mg/dL Creatinine (0.66-1.25) mg/dL Glucose (74-99) mg/dL Calcium (8.4-10.2) mg/dL Total Protein (6.3-8.2) g/dL TSH 5.600 H (0.465-4.680) mIU/L Diabetes panel 03/18/22 Range/Units 06:34 Sodium 137 (137-145) mmol/L Potassium 4.2 (3.5-5.1) mmol/L Chloride 106 (98-107) mmol/L Carbon Dioxide 20 L (22-30) mmol/L BUN 26 H (9-20) mg/dL Creatinine 1.72 H (0.66-1.25) mg/dL Glucose 107 H (74-99) mg/dL Calcium 11.7 H (8.4-10.2) mg/dL AST 29 (17-59) U/L ALT 10 (4-49) U/L Alkaline Phosphatase 77 (38-126) U/L Total Protein 6.2 L (6.3-8.2) g/dL Albumin 4.1 (3.5-5.0) g/dL Thyroid panel 03/18/22 Range/Units 11:05 TSH 5.600 H (0.465-4.680) mIU/L Calcium panel 03/18/22 Range/Units 06:34 Calcium 11.7 H (8.4-10.2) mg/dL Albumin 4.1 (3.5-5.0) g/dL Pituitary panel 03/18/22 03/18/22 Range/Units 06:34 11:05 Sodium 137 (137-145) mmol/L Potassium 4.2 (3.5-5.1) mmol/L Chloride 106 (98-107) mmol/L Carbon Dioxide 20 L (22-30) mmol/L BUN 26 H (9-20) mg/dL Creatinine 1.72 H (0.66-1.25) mg/dL Glucose 107 H (74-99) mg/dL Calcium 11.7 H (8.4-10.2) mg/dL TSH 5.600 H (0.465-4.680) mIU/L Adrenal panel 03/18/22 Range/Units 06:34 Sodium 137 (137-145) mmol/L Potassium 4.2 (3.5-5.1) mmol/L Chloride 106 (98-107) mmol/L Carbon Dioxide 20 L (22-30) mmol/L BUN 26 H (9-20) mg/dL Creatinine 1.72 H (0.66-1.25) mg/dL Glucose 107 H (74-99) mg/dL Calcium 11.7 H (8.4-10.2) mg/dL Total Bilirubin 0.9 (0.2-1.3) mg/dL AST 29 (17-59) U/L ALT 10 (4-49) U/L Alkaline Phosphatase 77 (38-126) U/L Total Protein 6.2 L (6.3-8.2) g/dL Albumin 4.1 (3.5-5.0) g/dL Assessment and Plan Assessment: Left perinephric mass CLL Splenomegaly Left flank pain Plan: At this time a computed tomography scan has been reviewed. Subsequentlyultrasound performed showing no evidence of obvious hematoma. There is a perinephric mass. This time his laboratories remained stable. He is not anemic. Would recommend urology consultation for evaluation. We'll sign off. Please let me know if we can be of further assistance
[2022-03-18] MEDS: SODIUM CHLORIDE 0.9% 1,000 ML IV SCH ×2 (13:15→22:56)
[2022-03-18 13:35] LABS: Appearance,Urine Clear (Clear); Bilirubin,Urine Negative (Negative); Blood,Urine Negative (Negative); Color,Urine Yellow; Glucose,Urine (UA) Negative (Negative); Ketones,Urine Negative (Negative); Leukocyte Esterase,Urine Negative (Negative); Nitrite,Urine Negative (Negative); PH, Urine 5.5 (5.0-8.0); Protein,Urine Negative (Negative); Specific Gravity,Urine 1.015 (1.001-1.035); Urobilinogen,Urine <2.0 mg/dL (<2.0)
[2022-03-18] MEDS ORDERED: CYCLOBENZAPRINE 10 MG TAB PO PRN (14:23)
[2022-03-18] MEDS ORDERED: ALBUTEROL HFA INHALER INHALATION PRN (14:23)
[2022-03-18] MEDS ORDERED: ONDANSETRON 4 MG TAB PO PRN (14:23)
[2022-03-18] MEDS: HYDROmorphone 1 MG/ML 1 ML SYRINGE IVP PRN (16:11)
[2022-03-18] MEDS: PANTOPRAZOLE 40 MG TABLET PO SCH (16:12)
--- NOTE | 2022-03-18 19:03 | P.CONS ---
History of Present Illness - Reason for Consult Consult date: 03/18/22 CLL on Calquence Requesting physician: Geneva Puente - Chief Complaint Left flank pain - History of Present Illness Mr. Cochran is a very pleasant 61-year-old gentleman, patient of Dr. Chen, with a history of CLL, recently started on Calquence in 10/2021, who is here for left flank pain that has been slowly worsening over the past 2 weeks. Workup with noncontrast CT due to KEERTHI and CKD revealed left perinephric/retroperitoneal soft tissue mass versus hematoma as well as worsening lymphadenopathy in the abdomen and mediastinum compared to CT from 07/2021. He has chronically elevated INR 3's, repeat today was 3.5. Hemoglobin however was normal at 14.1. Ultrasound was obtained which revealed a left perinephric complex vascular structure that is likely a mass and unlikely to be hematoma as well as persistent splenomegaly and 19 cm. We were consulted due to new renal mass and history of CLL on Calquence. Patient states his flank pain started couple weeks ago however it has been worsening. He was continuing to work however last 2 days his pain has been unbearable. Has been taking NSAIDs for this. He states that he has been taking his Calquence religiously with only 1-2 missed doses since he started in October. He had significant symptoms from his CLL including significant lymphadenopathy that have significantly improved clinically. Denies any bleeding or urinary symptoms other than noting that his urine was cloudy last night without dysuria and possibly slight dysuria today. Does not appear that he is hydrating adequately at home. His creatinine has been elevated around 1.7 for the past couple months. Baseline is 1.21.3. No other significant complaints at this point. He does mention being very claustrophobic however when I did mention MRI recommendation. Oncologic history: This is a very nice patient who was referred because of persistent leukocytosis/erythrocytosis and thrombocytosis. On 09/29/2019,CBC revealed total wbc of 41.5K,significant lymphocytosis,mild basoplilia and monocytosis,hemoglobin of 17.7gm/dl,hematocrit 56%,platelets counts of 433K,RF IgG was over 100CCP was 22. On 08/04/2019,CMP was unremarkable,his RF was 14, On 11/21/2019,flow cytometry on peripheral blood was consistent with CLL. On 11/22/2019,CT scan of chest/abdomen/pelvis revealed borderline enlarged axillary and mediastinal nodes,retroperitoneal nodes,largest 2.7x1.5cm,splenomegaly measured 17.5cm He had COVID infection in 10/2020,complicated by pneumonia (LLL consolidation),he also was on anticoagulation which was complicated by GIB He was admitted to [facility] in July/2021 with dyspnea and abdominal pain,CT scan revealed thoracic/abdominal/pelvic adenopathies,(2.4 cm in left iliac chain,2.3 cam in axilla and periaortic nodes) On 10/03/2021,CBC revealed microcytic anemia,no evidence of iron deficiency,normal LDH,his uric acid was evelated,flow cytometry was consistent with CLL,repeat FISH revealed heterozygous 13q14 deletion. On 10/10/2021,PET scan revealed generalized adenopathies with low SUV uptake,no PET evidence to suggest transformation. He started acalabrutinib in October/[address] Chen on 01/22/22. At that time, feels much better,active and tolerating treatment well. Continue treatment and follow up in 6-8 weeks, however I don't see any follow up appointments scheduled. Review of Systems All systems: negative Constitutional: Reports as per HPI Past Medical History Past Medical History: Cancer, COPD Additional Past Medical History / Comment(s): Chronic lymphocytic leukemia, emphysema, plueral effusion 09/23/2020, covid 10/2020, lupus anticoagulant History of Any Multi-Drug Resistant Organisms: None Reported Past Surgical History: Appendectomy, Orthopedic Surgery Additional Past Surgical History / Comment(s): rt knee Past Anesthesia/Blood Transfusion Reactions: No Reported Reaction Past Psychological History: Anxiety, Depression Smoking Status: Former smoker Past Alcohol Use History: None Reported Past Drug Use History: None Reported - Past Family History Family Family Medical History: Hypertension Medications and Allergies Home Medications Medication Instructions Recorded Confirmed Type Albuterol Sulfate [Proair Hfa] 2 puff INHALATION RT-Q6H PRN 09/23/20 03/18/22 History Cyclobenzaprine [Flexeril] 10 mg PO HS PRN 09/23/20 03/18/22 History Fluticasone Propion/Salmeterol 1 puff INHALATION RT-BID 09/23/20 03/18/22 History [Advair 250-50 Diskus] Omeprazole 20 mg PO BID 09/23/20 03/18/22 History PARoxetine [Paxil] 20 mg PO HS 09/23/20 03/18/22 History Tiotropium [place] [Spiriva] 1 cap INHALATION RT-DAILY 09/23/20 03/18/22 History Aspirin 325 mg PO DAILY #30 tab 09/27/20 03/18/22 Rx Ascorbic Acid [Vitamin C] 1,000 mg PO DAILY 04/24/21 03/18/22 History Albuterol Nebulized [Ventolin 2.5 mg INHALATION RT-QID PRN 07/18/21 03/18/22 History Nebulized] Ferrous Sulfate [Iron (65 MG 325 mg PO DAILY 07/18/21 03/18/22 History Elemental)] Gabapentin [Neurontin] 100 mg PO BID 07/18/21 03/18/22 History [place]-3 Fatty Acids/Fish Oil [Fish 1 cap PO DAILY 07/21/21 03/18/22 History Oil 1,000 mg Softgel] Vitamin B Complex 1 cap PO DAILY 07/21/21 03/18/22 History Acalabrutinib [Calquence] 100 mg PO BID 03/18/22 03/18/22 History Furosemide [Lasix] 20 mg PO DAILY 03/18/22 03/18/22 History clonazePAM [KlonoPIN] 0.5 mg PO BID PRN 03/18/22 03/18/22 History ondansetron HCL [Zofran] 8 mg PO TID PRN 03/18/22 03/18/22 History Allergies Allergy/AdvReac Type Severity Reaction Status Date / Time Penicillins Allergy Unknown Verified 03/18/22 12:06 Childhood Physical Exam Vitals: Vital Signs Temp Pulse Pulse Resp BP BP Pulse Ox 03/18/22 16:00 97.6 F 75 18 119/67 91 L 03/18/22 11:18 97.5 F L 84 16 104/73 90 L 03/18/22 10:00 98.6 F 78 18 110/68 98 03/18/22 06:59 78 18 114/64 93 L 03/18/22 06:16 64 03/18/22 06:06 64 03/18/22 04:58 97.8 F 81 18 108/70 94 L Intake and Output 03/18/22 03/18/22 03/18/22 06:59 14:59 22:59 Other: Voiding Method Toilet Toilet Urinal # Voids 1 Weight 72.575 kg 72.575 kg Gen.: NAD HEENT: Mucosa moist, no conjunctival pallor. Neck: Supple. Bilateral small cervical lymphadenopathy that are mobile however no bulky disease palpable. Lymph:Bilateral small cervical lymphadenopathy that are mobile however no bulky disease palpable. Lungs: No respiratory distress. Heart: Regular rate. Abdomen: Soft, nontender. MSK: Left flank tenderness. Neuro: Alert and oriented 3. Skin: No jaundice. Psych: Initially appropriate affect however he became highly anxious after I mentioned the recommendation of MRI stating his very claustrophobic. Results CBC & Chem 7: 03/18/22 06:34 03/18/22 06:34 Labs: Abnormal Lab Results - Last 24 Hours (Table) 03/18/22 03/18/22 03/18/22 Range/Units 06:34 06:34 06:34 WBC 18.9 H (3.8-10.6) k/uL RBC 6.05 H (4.30-5.90) m/uL MCV 79.3 L (80.0-100.0) fL MCH 23.3 L (25.0-35.0) pg MCHC 29.4 L (31.0-37.0) g/dL RDW 18.3 H (11.5-15.5) % Lymphocytes # (Manual) 11.34 H (1.0-4.8) k/uL Monocytes # (Manual) 1.13 H (0-1.0) k/uL PT 34.6 H (9.0-12.0) sec INR 3.5 H (<1.2) APTT 59.6 H (22.0-30.0) sec Carbon Dioxide 20 L (22-30) mmol/L BUN 26 H (9-20) mg/dL Creatinine 1.72 H (0.66-1.25) mg/dL Glucose 107 H (74-99) mg/dL Calcium 11.7 H (8.4-10.2) mg/dL Total Protein 6.2 L (6.3-8.2) g/dL TSH (0.465-4.680) mIU/L 03/18/22 Range/Units 11:05 WBC (3.8-10.6) k/uL RBC (4.30-5.90) m/uL MCV (80.0-100.0) fL MCH (25.0-35.0) pg MCHC (31.0-37.0) g/dL RDW (11.5-15.5) % Lymphocytes # (Manual) (1.0-4.8) k/uL Monocytes # (Manual) (0-1.0) k/uL PT (9.0-12.0) sec INR (<1.2) APTT (22.0-30.0) sec Carbon Dioxide (22-30) mmol/L BUN (9-20) mg/dL Creatinine (0.66-1.25) mg/dL Glucose (74-99) mg/dL Calcium (8.4-10.2) mg/dL Total Protein (6.3-8.2) g/dL TSH 5.600 H (0.465-4.680) mIU/L CT scan - abdomen: report reviewed US - abdomen: report reviewed Assessment and Plan Assessment: 1. Left flank pain 2. Left renal mass 3. CLL 4. KEERTHI on CKD 5. Leukocytosis due to CLL 6. Chronic coagulopathy Plan: Mr. Cochran is a very pleasant 61-year-old gentleman with multiple comorbidities including baseline CKD and CLL on Calquence since 10/2021, here for worsening left flank pain for the past 2 weeks, work up with noncontrast CT of the abdomen and pelvis revealing left perinephritic/retroperitoneal soft tissue mass versus hematoma as well as worsening lymphadenopathy compared to CT in 07/2021. Abdominal ultrasound was obtained which revealed a left perinephritic complex vascular lesion likely a mass, MRI recommended, measuring 11.8 cm. Also noted splenomegaly at 19 cm. CBC with normal hemoglobin at 14.1, slightly elevated WBC at 18.9, and creatinine 1.7 which is slightly above his baseline of 1.2. INR 3.5 however he has a chronic history of coagulopathy with multiple INRs checked in the past that have been 3's. Surgery has been consulted due to CT findings. Appreciate recommendations. I would recommend an MRI of the kidneys to better assess the possible mass that is being seen. It does not appear that this was present in 07/2021. Although lymphadenopathy seems to be worsened compared to 07/2021, he was not started on treatment for CLL until 10/2021 due to worsening disease. Clinically he has noted significant improvement of his disease overall and had a PET scan prior to initiation of therapy which was noted in his last office note of having low- grade activity in his lymph nodes however I don't have access to that report at this point. It does not appear that the perirenal mass was seen on the PET scan based on the information I have available at this point. Would recommend close monitoring of his hemoglobin to ensure that this is not infected hematoma. For now, until a better idea of what this lesion is and how it's going to be treated we'll hold Calquence, in case surgery is needed in the near future. Patient became highly anxious when I mentioned the recommendation of pursuing an MRI. He says he's highly claustrophobic. Would recommend obtaining MRI with sedation if possible. Discussed with patient in detail and is agreeable to the plan. All of his questions were answered. His cussed with primary team. Time with Patient: Greater than 30
[2022-03-18] MEDS: SYMBICORT 80-4.5 MCG INHALER INHALATION SCH (19:18)
[2022-03-18] MEDS: PARoxetine 20 MG TAB PO SCH (20:33)
[2022-03-18] MEDS: GABAPENTIN 100 MG CAP PO SCH (20:33)
[2022-03-18] MEDS ORDERED: ACALABRUTINIB 100 MG PO SCH (21:00)
[2022-03-19] MEDS: HYDROmorphone 1 MG/ML 1 ML SYRINGE IVP PRN ×5 (03:14→22:45)
[2022-03-19] MEDS: PANTOPRAZOLE 40 MG TABLET PO SCH ×2 (06:29→15:54)
[2022-03-19] MEDS: ASCORBIC ACID 500 MG TAB PO SCH (08:23)
[2022-03-19] MEDS: FERROUS SULFATE 325 MG TAB PO SCH (08:23)
[2022-03-19] MEDS: GABAPENTIN 100 MG CAP PO SCH ×2 (08:23→19:39)
[2022-03-19] MEDS: ASPIRIN 325 MG TAB PO SCH (08:24)
[2022-03-19] MEDS: IPRATROPIUM 0.5 MG/2.5 ML NEBU INHALATION SCH ×4 (08:34→21:01)
[2022-03-19] MEDS: SYMBICORT 80-4.5 MCG INHALER INHALATION SCH ×2 (08:35→21:01)
[2022-03-19 08:41] LABS: Anisocytosis Slight; HCT 48.9 % (39.0-53.0); HGB 14.2 gm/dL (13.0-17.5); Hypochromasia Marked; MCH 23.8 pg (25.0-35.0); MCV 82.1 fL (80.0-100.0); Mean Platelet Volume 7.7; Microcytosis Slight; Platelet Count 300 k/uL (150-450); RBC 5.95 m/uL (4.30-5.90); RDW 18.3 % (11.5-15.5); WBC 12.8 k/uL (3.8-10.6)
[2022-03-19 08:42] LABS: INR 4.1 (<1.2); Prothrombin Time 40.4 sec (9.0-12.0)
[2022-03-19] MEDS ORDERED: NON FORMULARY DRUG (Vitamin B Complex [Vitamin B Complex] 1 EACH Capsule) PO SCH (09:00)
[2022-03-19] MEDS ORDERED: FUROSEMIDE 20 MG TAB PO SCH (09:00)
[2022-03-19] MEDS ORDERED: NON FORMULARY DRUG (Omega-3 Fatty Acids/Fish Oil [Fish Oil 1,000 Mg Softgel] 1 EACH Capsul PO SCH (09:00)
[2022-03-19 09:03] LABS: Albumin 3.7 g/dL (3.5-5.0); Total Bilirubin 0.9 mg/dL (0.2-1.3); Total Protein 5.7 g/dL (6.3-8.2)
--- NOTE | 2022-03-19 09:13 | P.NPCON ---
History of Present Illness - Reason for Consult acute renal failure, chronic renal failure - History of Present Illness Reason for consultation: Acute kidney injury on chronic kidney disease History of present illness: Patient is a 61-year-old male seen in renal consultation for acute kidney injury on chronic kidney disease. Patient's baseline creatinine appears to be in the range of 1.2-1.3 from May 2021. Patient presented to the hospital due to pain in his left lower quadrant with radiation to his flank. Patient states the pains been going on for the last couple of weeks. Oral intake has been less than usual. He does admit to taking NSAIDs about 3 times a week for pain control. He was also taking Lasix at home which is currently held. He was receiving IV fluids. CT of the abdomen and pelvis showed no evidence of hydronephrosis. However her left retroperitoneal mass versus hematoma was noted. Patient denies history of diabetes. Blood pressure stable. Denies family history of renal disease. No gross hematuria or dysuria. Denies history of kidney stones. Denies cough. No fever. UA is benign. Vital signs are stable. General: Awake. No acute distress. HEENT: Head exam is unremarkable. LUNGS: Breath sounds decreased. HEART: Rate and Rhythm are regular. ABDOMEN: Soft, no distention. Slight tenderness to touch. EXTREMITITES: No edema. Past Medical History Past Medical History: Cancer, COPD Additional Past Medical History / Comment(s): Chronic lymphocytic leukemia, emphysema, plueral effusion 09/23/2020, covid 10/2020, lupus anticoagulant History of Any Multi-Drug Resistant Organisms: None Reported Past Surgical History: Appendectomy, Orthopedic Surgery Additional Past Surgical History / Comment(s): rt knee Past Anesthesia/Blood Transfusion Reactions: No Reported Reaction Past Psychological History: Anxiety, Depression Smoking Status: Former smoker Past Alcohol Use History: None Reported Past Drug Use History: None Reported - Past Family History Family Family Medical History: Hypertension Medications and Allergies Home Medications Medication Instructions Recorded Confirmed Type Albuterol Sulfate [Proair Hfa] 2 puff INHALATION RT-Q6H PRN 09/23/20 03/18/22 History Cyclobenzaprine [Flexeril] 10 mg PO HS PRN 09/23/20 03/18/22 History Fluticasone Propion/Salmeterol 1 puff INHALATION RT-BID 09/23/20 03/18/22 History [Advair 250-50 Diskus] Omeprazole 20 mg PO BID 09/23/20 03/18/22 History PARoxetine [Paxil] 20 mg PO HS 09/23/20 03/18/22 History Tiotropium [place] [Spiriva] 1 cap INHALATION RT-DAILY 09/23/20 03/18/22 History Aspirin 325 mg PO DAILY #30 tab 09/27/20 03/18/22 Rx Ascorbic Acid [Vitamin C] 1,000 mg PO DAILY 04/24/21 03/18/22 History Albuterol Nebulized [Ventolin 2.5 mg INHALATION RT-QID PRN 07/18/21 03/18/22 History Nebulized] Ferrous Sulfate [Iron (65 MG 325 mg PO DAILY 07/18/21 03/18/22 History Elemental)] Gabapentin [Neurontin] 100 mg PO BID 07/18/21 03/18/22 History [place]-3 Fatty Acids/Fish Oil [Fish 1 cap PO DAILY 07/21/21 03/18/22 History Oil 1,000 mg Softgel] Vitamin B Complex 1 cap PO DAILY 07/21/21 03/18/22 History Acalabrutinib [Calquence] 100 mg PO BID 03/18/22 03/18/22 History Furosemide [Lasix] 20 mg PO DAILY 03/18/22 03/18/22 History clonazePAM [KlonoPIN] 0.5 mg PO BID PRN 03/18/22 03/18/22 History ondansetron HCL [Zofran] 8 mg PO TID PRN 03/18/22 03/18/22 History Allergies Allergy/AdvReac Type Severity Reaction Status Date / Time Penicillins Allergy Unknown Verified 03/18/22 12:06 Childhood Physical Exam Vitals: Vital Signs Temp Pulse Pulse Resp BP BP Pulse Ox 03/19/22 08:47 64 03/19/22 08:35 64 03/19/22 08:21 97.5 F L 72 16 120/71 96 03/19/22 03:49 97.8 F 70 17 122/65 96 03/19/22 00:00 97.5 F L 68 18 113/69 95 03/18/22 20:00 96 F L 69 20 114/70 97 03/18/22 16:00 97.6 F 75 18 119/67 91 L 03/18/22 11:18 97.5 F L 84 16 104/73 90 L 03/18/22 10:00 98.6 F 78 18 110/68 98 Intake and Output 03/18/22 03/19/22 03/19/22 22:59 06:59 14:59 Intake Total 358 237 Balance 358 237 Intake: Oral 358 237 Other: Voiding Method Toilet Toilet # Voids 1 1 Results - Lab Results Most recent lab results Calcium 11.7 mg/dL (8.4-10.2) H 03/18/22 06:34 03/18/22 06:34 03/18/22 06:34 Assessment and Plan Plan: Assessment: 1. Acute kidney injury mostly prerenal secondary to nonsteroidals, hypovolemia and hypercalcemia. Creatinine 1.72 on admission and is down to 1.48 today. UA benign. No hydronephrosis noted on CAT scan. 2. Chronic kidney disease stage IIIA with baseline creatinine in the range of 1.2-1.3 secondary to nephrosclerosis. 3. Left lower quadrant abdominal pain. Left kidney mass versus hematoma noted on CAT scan. Oncology and urology following. 4. Hypercalcemia secondary to hypovolemia. Not on any vitamin D or calcium supplementation. Improved. 5. History of CLL. Oncology following. 6. Metabolic acidosis secondary to acute kidney injury. Improved. Plan: Maintain IV fluids. Continue to hold Lasix. Encouraged oral intake. Avoid nephrotoxins. Check further workup for hypercalcemia. Continue to monitor renal function and urine output. Thank you for the consultation. I will continue to follow the patient with you during his hospital stay.
[2022-03-19 09:45] LABS: Eosinophils # (M) 0.51 k/uL (0-0.7); Lymphocytes # (M) 8.32 k/uL (1.0-4.8); Monocytes # (M) 0.26 k/uL (0-1.0); Neutrophils # (M) 3.71 k/uL (1.3-7.7); Neutrophils % (M) 29 %; Nucleated Red Blood Cells 0 /100 WBC (0-0); Total Cells Counted 200
[2022-03-19 09:47] LABS: Polychromasia Present
--- NOTE | 2022-03-19 13:07 | P.GSCN ---
History of Present Illness Consult date: 03/19/22 Reason for Consult: Left perinephric mass History of present illness: This is a 61-year-old male with history of CLL. He presented to the hospital with progressively worsening left flank pain. He indicates his been ongoing for the past few weeks but this got worse more recently. On presentation underwent a CT noncontrasted imaging that showed evidence of 9.5 x 6.8 soft tissue mass arising in the perinephric space at the level of the upper pole of the kidney, this is a new finding. Of note he had a CT in April 2021 that showed a 1.4 cm lesion but that appeared to be arising from the lower pole of the kidney, and on follow-up imaging in july of 2021 showed resolution. Denies any fevers chills, or dysuria. Indicated did have an episode of gross hematuria approximately 2 weeks ago, which resolved , but no further evidence of gross hematuria. On imaging it appears to be progression of his lymphadenopathy secondary to his CLL. No family history of renal cell carcinoma. Denies any flank trauma. Hemoglobin is stable at 14, INR on presentation was 3.5. Review of Systems - Constitutional Denies fever, Denies weight loss - EENT Ears, nose, mouth and throat: Denies dysphagia - Cardiovascular Denies chest pain, Denies shortness of breath - Respiratory Denies cough, Denies 7 - Gastrointestinal Reports abdominal pain - Genitourinary Reports flank pain - Integumentary Denies rash, Denies unusual bruising - Neurological Denies headaches, Denies syncope Past Medical History Past Medical History: Cancer, COPD Additional Past Medical History / Comment(s): Chronic lymphocytic leukemia, emphysema, plueral effusion 09/23/2020, covid 10/2020, lupus anticoagulant History of Any Multi-Drug Resistant Organisms: None Reported Past Surgical History: Appendectomy, Orthopedic Surgery Additional Past Surgical History / Comment(s): rt knee Past Anesthesia/Blood Transfusion Reactions: No Reported Reaction Past Psychological History: Anxiety, Depression Smoking Status: Former smoker Past Alcohol Use History: None Reported Past Drug Use History: None Reported - Past Family History Family Family Medical History: Hypertension Medications and Allergies Home Medications Medication Instructions Recorded Confirmed Type Albuterol Sulfate [Proair Hfa] 2 puff INHALATION RT-Q6H PRN 09/23/20 03/18/22 History Cyclobenzaprine [Flexeril] 10 mg PO HS PRN 09/23/20 03/18/22 History Fluticasone Propion/Salmeterol 1 puff INHALATION RT-BID 09/23/20 03/18/22 History [Advair 250-50 Diskus] Omeprazole 20 mg PO BID 09/23/20 03/18/22 History PARoxetine [Paxil] 20 mg PO HS 09/23/20 03/18/22 History Tiotropium [place] [Spiriva] 1 cap INHALATION RT-DAILY 09/23/20 03/18/22 History Aspirin 325 mg PO DAILY #30 tab 09/27/20 03/18/22 Rx Ascorbic Acid [Vitamin C] 1,000 mg PO DAILY 04/24/21 03/18/22 History Albuterol Nebulized [Ventolin 2.5 mg INHALATION RT-QID PRN 07/18/21 03/18/22 History Nebulized] Ferrous Sulfate [Iron (65 MG 325 mg PO DAILY 07/18/21 03/18/22 History Elemental)] Gabapentin [Neurontin] 100 mg PO BID 07/18/21 03/18/22 History [place]-3 Fatty Acids/Fish Oil [Fish 1 cap PO DAILY 07/21/21 03/18/22 History Oil 1,000 mg Softgel] Vitamin B Complex 1 cap PO DAILY 07/21/21 03/18/22 History Acalabrutinib [Calquence] 100 mg PO BID 03/18/22 03/18/22 History Furosemide [Lasix] 20 mg PO DAILY 03/18/22 03/18/22 History clonazePAM [KlonoPIN] 0.5 mg PO BID PRN 03/18/22 03/18/22 History ondansetron HCL [Zofran] 8 mg PO TID PRN 03/18/22 03/18/22 History Allergies Allergy/AdvReac Type Severity Reaction Status Date / Time Penicillins Allergy Unknown Verified 03/18/22 12:06 Childhood Surgical - Exam Vital Signs Temp Pulse Resp BP Pulse Ox 97.8 F 81 18 108/70 94 L 03/18/22 04:58 03/18/22 04:58 03/18/22 04:58 03/18/22 04:58 03/18/22 04:58 - General no distress, moderate pain - Eyes normal ocular movement, no pale - ENT normal nares, normal mucosa - Respiratory normal expansion, normal respiratory effort - Abdomen Abdomen: soft, tender (Left flank left upper quadrant) - Psychiatric oriented to time, oriented to person, oriented to place, speech is normal Results - Labs 03/19/22 08:20 03/19/22 08:20 Abnormal Lab Results - Last 24 Hours (Table) 03/19/22 03/19/22 03/19/22 Range/Units 08:20 08:20 08:20 WBC 12.8 H (3.8-10.6) k/uL RBC 5.95 H (4.30-5.90) m/uL MCH 23.8 L (25.0-35.0) pg MCHC 29.0 L (31.0-37.0) g/dL RDW 18.3 H (11.5-15.5) % Lymphocytes # (Manual) 8.32 H (1.0-4.8) k/uL PT 40.4 H (9.0-12.0) sec INR 4.1 H (<1.2) BUN 22 H (9-20) mg/dL Creatinine 1.48 H (0.66-1.25) mg/dL Total Protein 5.7 L (6.3-8.2) g/dL Microbiology - Last 24 Hours (Table) 03/18/22 09:30 Blood Culture - Preliminary Blood No Growth after 24 hours 03/18/22 09:49 Blood Culture - Preliminary Blood No Growth after 24 hours Diabetes panel 03/19/22 Range/Units 08:20 Sodium 138 (137-145) mmol/L Potassium 4.0 (3.5-5.1) mmol/L Chloride 107 (98-107) mmol/L Carbon Dioxide 23 (22-30) mmol/L BUN 22 H (9-20) mg/dL Creatinine 1.48 H (0.66-1.25) mg/dL Glucose 87 (74-99) mg/dL Calcium 10.0 (8.4-10.2) mg/dL AST 28 (17-59) U/L ALT 9 (4-49) U/L Alkaline Phosphatase 66 (38-126) U/L Total Protein 5.7 L (6.3-8.2) g/dL Albumin 3.7 (3.5-5.0) g/dL Calcium panel 03/19/22 Range/Units 08:20 Calcium 10.0 (8.4-10.2) mg/dL Albumin 3.7 (3.5-5.0) g/dL Pituitary panel 03/19/22 Range/Units 08:20 Sodium 138 (137-145) mmol/L Potassium 4.0 (3.5-5.1) mmol/L Chloride 107 (98-107) mmol/L Carbon Dioxide 23 (22-30) mmol/L BUN 22 H (9-20) mg/dL Creatinine 1.48 H (0.66-1.25) mg/dL Glucose 87 (74-99) mg/dL Calcium 10.0 (8.4-10.2) mg/dL Adrenal panel 03/19/22 Range/Units 08:20 Sodium 138 (137-145) mmol/L Potassium 4.0 (3.5-5.1) mmol/L Chloride 107 (98-107) mmol/L Carbon Dioxide 23 (22-30) mmol/L BUN 22 H (9-20) mg/dL Creatinine 1.48 H (0.66-1.25) mg/dL Glucose 87 (74-99) mg/dL Calcium 10.0 (8.4-10.2) mg/dL Total Bilirubin 0.9 (0.2-1.3) mg/dL AST 28 (17-59) U/L ALT 9 (4-49) U/L Alkaline Phosphatase 66 (38-126) U/L Total Protein 5.7 L (6.3-8.2) g/dL Albumin 3.7 (3.5-5.0) g/dL - Imaging CT scan - abdomen: image reviewed (9.5 cm mass in the left retroperitoneal space, difficult to assess whether arising from the kidney) Assessment and Plan Assessment: 61-year-old male admitted to the hospital with a 9.5 cm left-sided retroperitoneal mass. Imaging was noncontrast difficult to assess whether to rising from the kidney. Lack of contrast limited evaluation. At this time agree with recommendation of MRI of the abdomen with contrast to better visualize the lesion. Discussed with the patient this could be a renal mass, retroperitoneal mass, or renal hematoma,. Discussed this will be better evaluated with an MRI, further Recs based on MRI finding
--- NOTE | 2022-03-19 13:18 | P.PN ---
Subjective Progress Note Date: 03/19/22 History of Present Illness H&P Date: 03/18/22 Chief Complaint: Left flank pain History of present illness: his is a 61-year-old male patient, known history of CLL on Calquence, chronic kidney stage III, COPD, coming in with a left flank pain has been going on for few weeks with progressive worsening over the past few days. Patient is nauseous but no vomiting. No hematemesis. No hematuria. Patient was taken ove [id number] naproxen and ibuprofen for his pain control for the past few days. He stated that he was supposed to follow-up with Dr. Faulkner from oncology last month but he canceled his appointment. Patient has a chronic exertional dyspnea but no changes. He denies any cough. He denies any fever or chills.. He is known to have COPD maintained on a combination of Advair and Spiriva on outpatie nt basis. He also carries a diagnosis of CLL that was followed up by Dr. Faulkner. He is known to have extensive lymphadenopathy related to his CLL. Based on the most recent oncology evaluation, there has been progression his CLL based on progression his lymphadenopathy. In the ED, the patient was found to have a hemoglobin of 14.1 with a white cell count of 18.9. Coagulation profile was abnormal and the patient has been quite neuropathic even prior admissions. No known history of chronic liver disease although the patient has drank alcohol many years back in excessive amounts. He has chronic kidney disease in the creatinine is at 1.7 with a BUN of 26 and creatinine of 1.7. Sodium is at 137. COVID 19 testing is negative. Electrodes are normal. Calcium level was 11.7. A CAT scan of the abdomen and pelvis was done and it showed a left perinephric/retroperitoneal soft tissue density which is either a mass versus hematoma and this was not present on previous evaluation or there has been probably a subtle finding in 2020. There is also overall worsening in the lymphadenopathy about the abdomen and ascending into the mediastinum with splenomegaly. The patient also has small bilateral pleural effusions. The patient is currently on room air oxygen. Ultrasound of the left kidney was ordered. Interval history: Patient was examined at the bedside. He reports improvement in his left flank pain. No nausea no vomiting patient tolerating clear liquid diet and ask for his diet to be advanced Physical examination: General: Appears older than his stated age. Appears malnourished and cachectic. Derm: warm, dry Head: atraumatic, normocephalic, symmetric Eyes: EOMI, no lid lag, anicteric sclera Mouth: no lip lesion, mucus membranes moist Cardiovascular: S1S2 reg, no murmur, positive posterior tibial pulse bilateral, Lungs: Diminished air entry bilaterally Abdominal: soft, tender left flank without rebound tenderness or rigidity positive bowel sounds. Ext: no gross muscle atrophy, no edema, no contractures Neuro: CN II-XI grossly intact, no focal neuro deficits Psych: Alert, oriented, appropriate affect Assessment and plan: #Left flank pain #Left perinephric complex vascular mass -Computed tomography scan of the abdomen without contrast showed complex mass in the left perinephric area. -Abdominal ultrasound still pending -MRI of the abdomen with and without contrast ordered per oncology recommendation. Patient is very claustrophobic MRI ordered with sedation by anesthesia. -Keep the patient nothing by mouth -Pain control with IV Dilaudid #Chronic coagulopathy -Possibly secondary to CLL #Chronic lymphocytic leukemia -Splenomegaly abdominal and mediastinal lymphadenopathy -Possible lymphoma transformation -Patient on Calquence -Pathology oncology consulted #Acute kidney injury -Could be secondary prerenal azotemia secondary to hypercalcemia and dehydration in the setting of NSAIDs for pain control use or prerenal as a ISA -Improving With hydration -Nephrology consulted -Continue holding Lasix -Avoid nephrotoxic agents #Chronic kidney stage III #Mild Hypercalcemia -Improved -secondary to dehydration #Lupus anticogulant #COPD without exacerbation #Chronic anemia #Severe protein Malnutrition #Full code Objective - Vital Signs Vital signs: Vital Signs Temp 97.5 F L 03/19/22 08:21 Pulse 64 03/19/22 11:49 Resp 16 03/19/22 08:21 BP 120/71 03/19/22 08:21 Pulse Ox 96 03/19/22 08:21 FiO2 Intake & Output 03/18/22 03/19/22 03/19/22 18:59 06:59 18:59 Intake Total 118 240 237 Balance 118 240 237 Weight 72.575 kg Intake: Oral 118 240 237 Other: Voiding Method Toilet Toilet # Voids 1 1 - Labs CBC & Chem 7: 03/19/22 08:20 03/19/22 08:20 Labs: Abnormal Lab Results - Last 24 Hours (Table) 03/19/22 03/19/22 03/19/22 Range/Units 08:20 08:20 08:20 WBC 12.8 H (3.8-10.6) k/uL RBC 5.95 H (4.30-5.90) m/uL MCH 23.8 L (25.0-35.0) pg MCHC 29.0 L (31.0-37.0) g/dL RDW 18.3 H (11.5-15.5) % Lymphocytes # (Manual) 8.32 H (1.0-4.8) k/uL PT 40.4 H (9.0-12.0) sec INR 4.1 H (<1.2) BUN 22 H (9-20) mg/dL Creatinine 1.48 H (0.66-1.25) mg/dL Total Protein 5.7 L (6.3-8.2) g/dL Microbiology - Last 24 Hours (Table) 03/18/22 09:30 Blood Culture - Preliminary Blood No Growth after 24 hours 03/18/22 09:49 Blood Culture - Preliminary Blood No Growth after 24 hours
--- NOTE | 2022-03-19 13:45 | P.PN ---
Subjective Progress Note Date: 03/19/22 This is a 61-year-old male patient, known history of COPD, coming in with a left flank pain has been going on for few weeks with progressive worsening over the past few days. No nausea. No vomiting. No hematemesis. No hematuria. No shortness of breath other than his chronic dyspnea. He is known to have COPD maintained on a combination of Advair and Spiriva on outpatient basis. He also carries a diagnosis of CLL that was followed up by Dr. Faulkner. He is known to have extensive lymphadenopathy related to his CLL. Based on the most recent oncology evaluation, there has been progression his CLL based on progression his lymphadenopathy. In the ED, the patient was found to have a hemoglobin of 14.1 with a white cell count of 18.9. Coagulation profile was abnormal and the patient has been quite neuropathic even prior admissions. No known history of chronic liver disease although the patient has drank alcohol many years back in excessive amounts. He has chronic kidney disease in the creatinine is at 1.7 with a BUN of 26 and creatinine of 1.7. Sodium is at 137. COVID 19 testing is negative. Electrodes are normal. Calcium level was 11.7. A CAT scan of the abdomen and pelvis was done and it showed a left perinephric/retroperitoneal soft tissue density which is either a mass versus hematoma and this was not present on previous evaluation or there has been probably a subtle finding in 2020. There is also overall worsening in the lymphadenopathy about the abdomen and ascending into the mediastinum with splenomegaly. The patient also has small bilateral pleural effusions. The patient is currently on room air oxygen. Ultrasound of the left kidney was ordered. 03/19/2022, no signs of pneumonia. The patient has no new GI symptoms. Left flank pain is improving. Ultrasound the left kidney was noted. The patient has a complex soft tissue mass and will need an MRI. This is likely progression of his underlying CLL with possibly lymphomatous transformation. Mother the patient was receiving Calquence since October 2021. Objective - Vital Signs Vital signs: Vital Signs Temp 97.5 F L 03/19/22 08:21 Pulse 64 03/19/22 11:49 Resp 16 03/19/22 08:21 BP 120/71 03/19/22 08:21 Pulse Ox 96 03/19/22 08:21 FiO2 Intake & Output 07/12/0503/19/22 03/19/22 18:59 06:59 18:59 Intake Total 118 240 237 Balance 118 240 237 Weight 72.575 kg Intake: Oral 118 240 237 Other: Voiding Method Toilet Toilet # Voids 1 1 - Exam Vital signs reviewed and stable. The patient is currently on room in oxygen General: non toxic, no distress, appears at stated age Derm: warm, dry, diffuse maculopapular rash with convolesence on the abdomen Head: atraumatic, normocephalic, symmetric Eyes: EOMI, no lid lag, anicteric sclera Mouth: no lip lesion, mucus membranes moist Cardiovascular: S1S2 reg, no murmur, positive posterior tibial pulse bilateral, Lungs: Decreased bs bilateral, no rhonchi, no rales , no accessory muscle use Abdominal: soft, nontender to palpation, no guarding, no appreciable organomegaly Ext: no gross muscle atrophy, no edema, no contractures Neuro: CN II-XI grossly intact, no focal neuro deficits Psych: Alert, oriented, appropriate affect - Labs CBC & Chem 7: 03/19/22 08:20 03/19/22 08:20 Labs: Abnormal Lab Results - Last 24 Hours (Table) 03/19/22 03/19/22 03/19/22 Range/Units 08:20 08:20 08:20 WBC 12.8 H (3.8-10.6) k/uL RBC 5.95 H (4.30-5.90) m/uL MCH 23.8 L (25.0-35.0) pg MCHC 29.0 L (31.0-37.0) g/dL RDW 18.3 H (11.5-15.5) % Lymphocytes # (Manual) 8.32 H (1.0-4.8) k/uL PT 40.4 H (9.0-12.0) sec INR 4.1 H (<1.2) BUN 22 H (9-20) mg/dL Creatinine 1.48 H (0.66-1.25) mg/dL Total Protein 5.7 L (6.3-8.2) g/dL Microbiology - Last 24 Hours (Table) 03/18/22 09:30 Blood Culture - Preliminary Blood No Growth after 24 hours 03/18/22 09:49 Blood Culture - Preliminary Blood No Growth after 24 hours Assessment and Plan Plan: Left flank pain probably due to an enlarging complex mass in the left perinephric area, consider lymphoma or conglomeration of lymphadenopathy as part of this patient's history of CLL. Doubt acute hematoma or bleeding. Chronic lymphocytic leukemia/CLL with history of disease progression with extensive abdominal and mediastinal lymphadenopathy Small bilateral pleural effusions Lupus anticoagulant with underlying abnormal correlation profile on blood work COPD maintained on examination of Advair and Luiva on outpatient basis Previous history of COVID 19 infection in October 2020 Chronic anemia Coagulopathy, likely secondary to a positive lupus anticoagulant mild hypercalcemia Plan Ultrasound the kidneys was noted. Please proceed with MRI of the left kidney Oncology follow-up No evidence of any pneumonia Patient is known to have COPD he was currently inactive in stable Patient is under adequate control. No need for any pulmonary services at this point in time. We'll sign off
[2022-03-19] MEDS: SODIUM CHLORIDE 0.9% 1,000 ML IV SCH ×2 (15:55→22:45)
[2022-03-19] MEDS: PARoxetine 20 MG TAB PO SCH (19:39)
[2022-03-19 21:28] LABS: Protein, Total 5.5 g/dL (6.2-8.2)
[2022-03-20] MEDS: HYDROmorphone 1 MG/ML 1 ML SYRINGE IVP PRN ×6 (03:07→23:31)
[2022-03-20] MEDS: PANTOPRAZOLE 40 MG TABLET PO SCH ×2 (06:35→17:05)
[2022-03-20] MEDS: IPRATROPIUM 0.5 MG/2.5 ML NEBU INHALATION SCH ×4 (07:14→19:19)
[2022-03-20] MEDS: SYMBICORT 80-4.5 MCG INHALER INHALATION SCH ×2 (07:14→19:19)
[2022-03-20 07:45] LABS: Anisocytosis Slight; Basophils % (A) 1 %; Eosinophils # (A) 0.2 k/uL (0-0.7); Eosinophils % (A) 3 %; HCT 48.8 % (39.0-53.0); HGB 14.4 gm/dL (13.0-17.5); Hypochromasia Marked; Lymphocytes # (A) 2.6 k/uL (1.0-4.8); Lymphocytes % (A) 39 %; MCH 23.8 pg (25.0-35.0); MCHC 29.5 g/dL (31.0-37.0); MCV 80.8 fL (80.0-100.0); Mean Platelet Volume 7.7; Microcytosis Slight; Monocytes # (A) 0.3 k/uL (0-1.0); Monocytes % (A) 4 %; Neutrophils # (A) 3.4 k/uL (1.3-7.7); Neutrophils % (A) 52 %; Platelet Count 270 k/uL (150-450); RBC 6.04 m/uL (4.30-5.90); RDW 18.4 % (11.5-15.5); WBC 6.5 k/uL (3.8-10.6)
[2022-03-20 07:54] LABS: Albumin 3.6 g/dL (3.5-5.0); Magnesium 1.8 mg/dL (1.6-2.3); Potassium 4.1 mmol/L (3.5-5.1); Total Bilirubin 0.9 mg/dL (0.2-1.3); Total Protein 5.6 g/dL (6.3-8.2)
[2022-03-20 08:10] LABS: INR 3.3 (<1.2); Prothrombin Time 32.8 sec (9.0-12.0)
[2022-03-20] MEDS: ASPIRIN 325 MG TAB PO SCH (09:16)
[2022-03-20] MEDS: FERROUS SULFATE 325 MG TAB PO SCH (09:17)
[2022-03-20] MEDS: GABAPENTIN 100 MG CAP PO SCH ×2 (09:17→20:12)
[2022-03-20] MEDS: ASCORBIC ACID 500 MG TAB PO SCH (09:17)
--- NOTE | 2022-03-20 10:08 | P.PN ---
Subjective Patient is seen in follow-up for acute kidney injury on chronic kidney disease. Renal function improving with IV hydration. Good urine output. No hematuria. No vomiting or diarrhea. Vital signs are stable. General: Awake. No acute distress. HEENT: Head exam is unremarkable. LUNGS: Breath sounds decreased. HEART: Rate and Rhythm are regular. ABDOMEN: Soft, no distention. EXTREMITITES: No edema. Objective - Vital Signs Vital signs: Vital Signs Temp 97.7 F 03/20/22 03:43 Pulse 76 03/20/22 07:30 Resp 18 03/20/22 03:43 BP 115/68 03/20/22 03:43 Pulse Ox 96 03/20/22 03:43 FiO2 Intake & Output 03/19/22 03/20/22 03/20/22 18:59 06:59 18:59 Intake Total 458 240 90 Output Total 675 375 Balance 805 -292 -676 Intake: Oral 458 240 90 Output: Urine 675 375 Other: Voiding Method Toilet Urinal # Voids 1 1 - Labs CBC & Chem 7: 03/20/22 06:44 03/20/22 06:44 Labs: Abnormal Lab Results - Last 24 Hours (Table) 03/19/22 03/19/22 03/20/22 Range/Units 12:50 12:50 06:44 RBC 6.04 H (4.30-5.90) m/uL MCH 23.8 L (25.0-35.0) pg MCHC 29.5 L (31.0-37.0) g/dL RDW 18.4 H (11.5-15.5) % PT (9.0-12.0) sec INR (<1.2) Carbon Dioxide (22-30) mmol/L Creatinine (0.66-1.25) mg/dL Glucose (74-99) mg/dL Total Protein (6.3-8.2) g/dL Total Protein (PEP) 5.5 L (6.2-8.2) g/dL PTH Intact 2.3 L (14.0-72.0) pg/mL 03/20/22 03/20/22 Range/Units 06:44 06:44 RBC (4.30-5.90) m/uL MCH (25.0-35.0) pg MCHC (31.0-37.0) g/dL RDW (11.5-15.5) % PT 32.8 H (9.0-12.0) sec INR 3.3 H (<1.2) Carbon Dioxide 20 L (22-30) mmol/L Creatinine 1.28 H (0.66-1.25) mg/dL Glucose 70 L (74-99) mg/dL Total Protein 5.6 L (6.3-8.2) g/dL Total Protein (PEP) (6.2-8.2) g/dL PTH Intact (14.0-72.0) pg/mL Microbiology - Last 24 Hours (Table) 03/18/22 09:30 Blood Culture - Preliminary Blood No Growth after 24 hours 03/18/22 09:49 Blood Culture - Preliminary Blood No Growth after 24 hours Assessment and Plan Plan: Assessment: 1. Acute kidney injury mostly prerenal secondary to nonsteroidals, hypovolemia and hypercalcemia. Creatinine 1.72 on admission and is down to 1.28 today. UA benign. No hydronephrosis noted on CAT scan. 2. Chronic kidney disease stage IIIA with baseline creatinine in the range of 1.2-1.3 secondary to nephrosclerosis. 3. Left lower quadrant abdominal pain. Left kidney mass versus hematoma noted on CAT scan. Oncology and urology following. MRI pending. 4. Hypercalcemia secondary to hypovolemia. Not on any vitamin D or calcium supplementation. Improved. PTH low at 2.3. Vitamin D level 43.6. 5. History of CLL. Oncology following. 6. Metabolic acidosis secondary to acute kidney injury and IV fluids. Plan: Maintain IV fluids. Continue to hold Lasix. Encouraged oral intake. Avoid nephrotoxins. Follow-up pending workup for hypercalcemia. Continue to monitor renal function and urine output. Add oral bicarb.
[2022-03-20] MEDS: SODIUM CHLORIDE 0.9% 1,000 ML IV SCH ×2 (12:17→23:36)
[2022-03-20] MEDS: SODIUM BICARBONATE TAB 650 MG TAB PO SCH ×2 (12:17→20:12)
[2022-03-20] MEDS ORDERED: LORazepam 2 MG/ML INJ IV PRN (14:15)
--- NOTE | 2022-03-20 14:26 | P.PN ---
Subjective Progress Note Date: 03/20/22 Hospital course: Patient is a very pleasant 61-year-old male with a past medical history of CLL on Calquence, chronic kidney stage III, and COPD. He presented to the emergency department on 03/18/22 with a chief complaint of left flank pain. Patient reported this pain began approximately a few weeks ago and significantly worsened over the past few days. He reported the pain still left flank and was accompanied by nausea. He underwent full evaluation in the emergency department. He was found to have significant leukocytosis with WBC count of 18.9 and an acute kidney injury with BUN 26, creatinine 1.72, and GFR 41. Urinalysis was negative for blood, protein, or infection. Covid PCR negative. CT abdomen and pelvis revealed a left perinephritic/retroperitoneal soft tissue suspicious for mass with overall worsening of previously known lymphadenopathy throughout the abdomen and ascending into the mediastinum with persistent splenomegaly consistent with his prior history of lymphoma along with increase and bilateral pleural effusions with left greater than right. Patient was admitted under our services with consultation to oncology, vascular surgery, nephrology, and urology. Abdominal ultrasound was completed revealing a left perinephritic complex vascular mass, recommending further evaluation with MRI. MRI with and without contrast has been ordered and awaiting completion. Physical exam: Pt seen and fully evaluated at bedside this morning. He anxious and adamant that he wants total sedation with intubation to have an MRI completed. Patient was educated that this will not be done at this facility as her MRI does not even accommodate intubated patients. Had long discussion with patient patient reports that he is severely claustrophobic and will have a severe panic attack. Informed patient that medication can be given to sedate him prior to going down to help him relax but that he would not be put fully unconscious. Patient reports that he will consider this option but at this time awaiting MRI to be completed. RN reports MRI will likely not be completed until tomorrow. Patient denies currently having any nausea, vomiting, hematemesis, melena, hematochezia, hematuria, or dysuria. Urinary output over the past 24 hours is documented at 6 75 mL. Vital signs reviewed and stable. General: Nontoxic, no distress and appears stated age. Thin, malnourished. Derm: Skin warm and dry, normal coloration for ethnicity. Head: Atraumatic, normocephalic and symmetric. Eyes: EOMs intact, no lid lag, and anicteric sclera Mouth: no lip lesions, mucus membranes moist Cardiovascular: regular rate and rhythm with normal S1S2, no murmur, positive posterior tibial pulses bilaterally, and cap refill < 2 seconds. Lungs: Respirations even, regular, and unlabored on room air. Lungs diminished however no rhonchi, rales, or wheezing present, and no accessory muscle usage. Abdominal: soft, diffuse left-sided abdominal tenderness and left flank pain with guarding of left flank. Bowel sounds 4 quadrants. Ext: ROM intact. No gross muscle atrophy, no edema, no contractures Neuro: Speech clear, face symmetrical and CN II-XII grossly intact with no noted focal neuro deficits Psych: Alert and oriented to person, place, time, and situation. Appropriate and pleasant affect. Assessment and Plan of Care: Left flank pain Left perinephric complex mass -Computed tomography scan of the abdomen without contrast showed complex mass in the left perinephric area. -Abdominal ultrasound confirmed left. Nephritic complex vascular mass -MRI abdomen with and with contrast pending completion, patient to be medicated with Ativan secondary to his reports of severe claustrophobia. -Pain control with IV Dilaudid -Hematology/oncology following, appreciate recommendations -Nephrology following, appreciate recommendations -Urology following in agreement with recommendation of MRI and reports further recommendations based on MRI findings. Chronic coagulopathy Chronic anemia of chronic disease Lupus anticogulant -Likely secondary to CLL, hematology/oncology following Chronic lymphocytic leukemia Splenomegaly with lymphadenopathy throughout abdomen and ascending into mediastinum -Patient on Calquence -Hematology/oncology following, appreciate recommendations. Acute kidney injury on stage III chronic kidney disease , improving -Could be secondary prerenal azotemia secondary to hypercalcemia and dehydration in the setting of NSAIDs for pain control use or prerenal as a ISA -Improving with IV fluid hydration -Nephrology consulted started patient on bicarb -Continue holding Lasix -Avoid nephrotoxic agents Mild Hypercalcemia -Improved with IV fluid hydration Bilateral pleural effusions, no evidence of pneumonia COPD without acute exacerbation -Supplemental oxygen to be provided as needed to maintain SpO2 equal to or greater than 92%. -Continue Symbicort 2 puffs twice daily along with PRN nebulizer treatments for shortness of breath and/or wheezing. CODE STATUS: Full code DVT prophylaxis: SCDs Discussed with: Patient and RN Anticipated discharge date: Clinical course to determine Anticipated discharge place: Home A total of 39 minutes was spent on the care of this complex patient more than 50% of the time was spent in counseling and care coordination. I reviewed the documentation as provided by the CAYLA above, who is the original author of this note. I agree with the documented assessment and plan, with the following changes: none Objective - Vital Signs Vital signs: Vital Signs Temp 97.6 F 03/20/22 08:10 Pulse 89 03/20/22 08:10 Resp 18 03/20/22 08:10 BP 134/79 03/20/22 08:10 Pulse Ox 90 L 03/20/22 08:10 FiO2 Intake & Output 03/19/22 03/20/22 03/20/22 18:59 06:59 18:59 Intake Total 458 240 90 Output Total 675 375 Balance 225 -391 -321 Intake: Oral 458 240 90 Output: Urine 675 375 Other: Voiding Method Toilet Urinal Toilet Urinal # Voids 1 1 - Labs CBC & Chem 7: 03/20/22 06:44 03/20/22 06:44 Labs: Abnormal Lab Results - Last 24 Hours (Table) 03/19/22 03/19/22 03/20/22 Range/Units 12:50 12:50 06:44 RBC 6.04 H (4.30-5.90) m/uL MCH 23.8 L (25.0-35.0) pg MCHC 29.5 L (31.0-37.0) g/dL RDW 18.4 H (11.5-15.5) % PT (9.0-12.0) sec INR (<1.2) Carbon Dioxide (22-30) mmol/L Creatinine (0.66-1.25) mg/dL Glucose (74-99) mg/dL Total Protein (6.3-8.2) g/dL Total Protein (PEP) 5.5 L (6.2-8.2) g/dL PTH Intact 2.3 L (14.0-72.0) pg/mL 03/20/22 03/20/22 Range/Units 06:44 06:44 RBC (4.30-5.90) m/uL MCH (25.0-35.0) pg MCHC (31.0-37.0) g/dL RDW (11.5-15.5) % PT 32.8 H (9.0-12.0) sec INR 3.3 H (<1.2) Carbon Dioxide 20 L (22-30) mmol/L Creatinine 1.28 H (0.66-1.25) mg/dL Glucose 70 L (74-99) mg/dL Total Protein 5.6 L (6.3-8.2) g/dL Total Protein (PEP) (6.2-8.2) g/dL PTH Intact (14.0-72.0) pg/mL Microbiology - Last 24 Hours (Table) 03/18/22 09:30 Blood Culture - Preliminary Blood No Growth after 24 hours 03/18/22 09:49 Blood Culture - Preliminary Blood No Growth after 24 hours
[2022-03-20] MEDS: PARoxetine 20 MG TAB PO SCH (20:12)
--- NOTE | 2022-03-20 20:19 | P.PN ---
Subjective Progress Note Date: 03/20/22 Principal diagnosis: Concern of Renal Mass We are waiting on MRI for further recommendations at this time. Creatinine has improved, nephrology is following. Oxygen 90% on 3L, appears worsening, pulmonology following. Objective - Vital Signs Vital signs: Vital Signs Temp 97.6 F 03/20/22 08:10 Pulse 89 03/20/22 08:10 Resp 18 03/20/22 08:10 BP 134/79 03/20/22 08:10 Pulse Ox 90 L 03/20/22 08:10 FiO2 Intake & Output 03/19/22 03/20/22 03/20/22 18:59 06:59 18:59 Intake Total 458 240 90 Output Total 675 375 Balance 458 -504 -736 Intake: Oral 458 240 90 Output: Urine 675 375 Other: Voiding Method Toilet Urinal Toilet Urinal # Voids 1 1 - Exam Gen.: NAD HEENT: Mucosa moist, no conjunctival pallor. Neck: Supple. Bilateral small cervical lymphadenopathy that are mobile however no bulky disease palpable. Lymph:Bilateral small cervical lymphadenopathy that are mobile however no bulky disease palpable. Lungs: No respiratory distress. Heart: Regular rate. Abdomen: Soft, nontender. MSK: Left flank tenderness. Neuro: Alert and oriented 3. Skin: No jaundice. Psych: Initially appropriate affect however he became highly anxious after I mentioned the recommendation of MRI stating his very claustrophobic. - Labs CBC & Chem 7: 03/20/22 06:44 03/20/22 06:44 Labs: Abnormal Lab Results - Last 24 Hours (Table) 03/19/22 03/19/22 03/20/22 Range/Units 12:50 12:50 06:44 RBC 6.04 H (4.30-5.90) m/uL MCH 23.8 L (25.0-35.0) pg MCHC 29.5 L (31.0-37.0) g/dL RDW 18.4 H (11.5-15.5) % PT (9.0-12.0) sec INR (<1.2) Carbon Dioxide (22-30) mmol/L Creatinine (0.66-1.25) mg/dL Glucose (74-99) mg/dL Total Protein (6.3-8.2) g/dL Total Protein (PEP) 5.5 L (6.2-8.2) g/dL PTH Intact 2.3 L (14.0-72.0) pg/mL 03/20/22 03/20/22 Range/Units 06:44 06:44 RBC (4.30-5.90) m/uL MCH (25.0-35.0) pg MCHC (31.0-37.0) g/dL RDW (11.5-15.5) % PT 32.8 H (9.0-12.0) sec INR 3.3 H (<1.2) Carbon Dioxide 20 L (22-30) mmol/L Creatinine 1.28 H (0.66-1.25) mg/dL Glucose 70 L (74-99) mg/dL Total Protein 5.6 L (6.3-8.2) g/dL Total Protein (PEP) (6.2-8.2) g/dL PTH Intact (14.0-72.0) pg/mL Microbiology - Last 24 Hours (Table) 03/18/22 09:49 Blood Culture - Preliminary Blood No Growth after 48 hours 03/18/22 09:30 Blood Culture - Preliminary Blood No Growth after 24 hours Assessment and Plan Plan: CT scan - abdomen: report reviewed US - abdomen: report reviewed Assessment and Plan Assessment: 1. Left flank pain 2. Left renal mass: - Likely related to CLL, concern of lymphatic transformation, await MRI for further evaluation - Awaiting MRI for recommendations from surgery 3. CLL: - Calquence on hold until further evaluation of acute hospital proble 4. KEERTHI on CKD 5. Leukocytosis: - due to CLL 6. Chronic coagulopathy 7. Hypoxia: - RLL developing pneumonia on admission -Pulm Following - Also high anxiety, espec with upcoming MRI, premed prior Plan: Last PET did objectively show improvement, It does not appear that the perirenal mass was seen on the PET scan. Hemoglobin remains stable, therefore less likely hematoma related. Pre-medication will be needed prior to MRI.
[2022-03-20] MEDS: clonazePAM 0.5 MG TAB PO PRN (23:36)
[2022-03-21] MEDS: PANTOPRAZOLE 40 MG TABLET PO SCH ×2 (06:43→18:41)
[2022-03-21] MEDS: GABAPENTIN 100 MG CAP PO SCH ×2 (08:02→20:19)
[2022-03-21] MEDS: FERROUS SULFATE 325 MG TAB PO SCH (08:02)
[2022-03-21] MEDS: SODIUM BICARBONATE TAB 650 MG TAB PO SCH ×2 (08:02→20:19)
[2022-03-21] MEDS: ASCORBIC ACID 500 MG TAB PO SCH (08:02)
[2022-03-21] MEDS: ASPIRIN 325 MG TAB PO SCH (08:02)
[2022-03-21] MEDS: HYDROmorphone 1 MG/ML 1 ML SYRINGE IVP PRN ×3 (08:03→22:00)
[2022-03-21] MEDS: SYMBICORT 80-4.5 MCG INHALER INHALATION SCH ×3 (08:11→19:27)
[2022-03-21] MEDS: IPRATROPIUM 0.5 MG/2.5 ML NEBU INHALATION SCH ×4 (08:11→19:21)
[2022-03-21 08:17] LABS: Anisocytosis Slight; Basophils % (A) 1 %; Eosinophils # (A) 0.1 k/uL (0-0.7); Eosinophils % (A) 2 %; HGB 14.2 gm/dL (13.0-17.5); Hypochromasia Marked; Lymphocytes # (A) 0.9 k/uL (1.0-4.8); Lymphocytes % (A) 18 %; MCHC 30.3 g/dL (31.0-37.0); MCV 79.3 fL (80.0-100.0); Mean Platelet Volume 7.7; Microcytosis Slight; Monocytes # (A) 0.3 k/uL (0-1.0); Monocytes % (A) 5 %; Neutrophils # (A) 3.7 k/uL (1.3-7.7); Neutrophils % (A) 73 %; Platelet Count 215 k/uL (150-450); RBC 5.93 m/uL (4.30-5.90); RDW 18.1 % (11.5-15.5); WBC 5.1 k/uL (3.8-10.6)
[2022-03-21 08:30] LABS: INR 3.1 (<1.2); Prothrombin Time 30.6 sec (9.0-12.0)
[2022-03-21 08:41] LABS: Magnesium 1.6 mg/dL (1.6-2.3); Potassium 3.8 mmol/L (3.5-5.1); Total Bilirubin 1.3 mg/dL (0.2-1.3)
[2022-03-21 08:41] LABS: Angiotensin-1 Converting Enz. 20 U/L (8-52)
[2022-03-21 08:42] LABS: Albumin 3.5 g/dL (3.5-5.0); Total Protein 5.4 g/dL (6.3-8.2)
[2022-03-21 09:09] LABS: Albumin 3.67 g/dL (3.80-4.90)
--- NOTE | 2022-03-21 10:21 | P.PN ---
Subjective Patient is seen in follow-up for acute kidney injury on chronic kidney disease. Renal function improved with IV hydration. Good urine output. Blood pressure stable. No active complaints. Vital signs are stable. General: Awake. No acute distress. HEENT: Head exam is unremarkable. LUNGS: Breath sounds decreased. HEART: Rate and Rhythm are regular. ABDOMEN: Soft, no distention. EXTREMITITES: No edema. Objective - Vital Signs Vital signs: Vital Signs Temp 97.7 F 03/21/22 04:00 Pulse 83 03/21/22 04:00 Resp 20 03/21/22 04:00 BP 135/70 03/21/22 04:00 Pulse Ox 93 L 03/21/22 04:00 FiO2 Intake & Output 03/20/22 03/21/22 03/21/22 18:59 06:59 18:59 Intake Total 330 240 Output Total 375 505 Balance -45 -505 240 Intake: Oral 330 240 Output: Urine 375 505 Other: Voiding Method Toilet Toilet Urinal Urinal # Voids 2 1 - Labs CBC & Chem 7: 03/21/22 07:23 03/21/22 07:23 Labs: Abnormal Lab Results - Last 24 Hours (Table) 03/19/22 03/21/22 03/21/22 Range/Units 12:50 07:23 07:23 RBC 5.93 H (4.30-5.90) m/uL MCV 79.3 L (80.0-100.0) fL MCH 24.0 L (25.0-35.0) pg MCHC 30.3 L (31.0-37.0) g/dL RDW 18.1 H (11.5-15.5) % Lymphocytes # 0.9 L (1.0-4.8) k/uL PT 30.6 H (9.0-12.0) sec INR 3.1 H (<1.2) Creatinine (0.66-1.25) mg/dL Glucose (74-99) mg/dL Total Protein (6.3-8.2) g/dL Albumin (PEP) 3.67 L (3.80-4.90) g/dL Clkmu-[id number] 0.54 L (0.60-1.00) g/dL Beta Globulins 0.50 L (0.60-1.30) g/dL Gamma Globulins 0.50 L (0.70-1.50) g/dL 03/21/22 Range/Units 07:23 RBC (4.30-5.90) m/uL MCV (80.0-100.0) fL MCH (25.0-35.0) pg MCHC (31.0-37.0) g/dL RDW (11.5-15.5) % Lymphocytes # (1.0-4.8) k/uL PT (9.0-12.0) sec INR (<1.2) Creatinine 1.28 H (0.66-1.25) mg/dL Glucose 56 L (74-99) mg/dL Total Protein 5.4 L (6.3-8.2) g/dL Albumin (PEP) (3.80-4.90) g/dL Pmkis-1-Aaqpnilru (0.60-1.00) g/dL Beta Globulins (0.60-1.30) g/dL Gamma Globulins (0.70-1.50) g/dL Microbiology - Last 24 Hours (Table) 03/18/22 09:30 Blood Culture - Preliminary Blood No Growth after 48 hours 03/18/22 09:49 Blood Culture - Preliminary Blood No Growth after 48 hours Assessment and Plan Plan: Assessment: 1. Acute kidney injury mostly prerenal secondary to nonsteroidals, hypovolemia and hypercalcemia. Creatinine 1.72 on admission and is stable at 1.28 today. U A benign. No hydronephrosis noted on CAT scan. 2. Chronic kidney disease stage IIIA with baseline creatinine in the range of 1.2-1.3 secondary to nephrosclerosis. 3. Left lower quadrant abdominal pain. Left kidney mass versus hematoma noted on CAT scan. Oncology and urology following. MRI pending. 4. Hypercalcemia secondary to hypovolemia. Not on any vitamin D or calcium supplementation. Improved. PTH low at 2.3. Vitamin D level 43.6. BEATRICE 20. 5. History of CLL. Oncology following. 6. Metabolic acidosis secondary to acute kidney injury and IV fluids. On oral bicarbonate. Better. Plan: Maintain IV fluids. Continue to hold Lasix. Encouraged oral intake. Avoid nephrotoxins. Follow-up pending workup for hypercalcemia. Continue to monitor renal function and urine output. MRI pending.
[2022-03-21 12:42] LABS: Glucose,Whole Blood 55 mg/dL (70-110)
[2022-03-21] MEDS ORDERED: DEXTROSE 50% SYRINGE 50 ML IVP STA (12:50)
[2022-03-21 12:52] LABS: Glucose,Whole Blood 58 mg/dL (70-110)
[2022-03-21 13:12] LABS: Glucose,Whole Blood 66 mg/dL (70-110)
[2022-03-21 13:26] LABS: Glucose,Whole Blood 78 mg/dL (70-110)
[2022-03-21] MEDS: DEXTROSE 5%-0.45% NACL 1,000 ML IV SCH (13:33)
--- NOTE | 2022-03-21 15:51 | P.PN ---
Subjective Progress Note Date: 03/21/22 Hospital course: Patient is a very pleasant 61-year-old male with a past medical history of CLL on Calquence, chronic kidney stage III, and COPD. He presented to the emergency department on 03/18/22 with a chief complaint of left flank pain. Patient reported this pain began approximately a few weeks ago and significantly worsened over the past few days. He reported the pain still left flank and was accompanied by nausea. He underwent full evaluation in the emergency department. He was found to have significant leukocytosis with WBC count of 18.9 and an acute kidney injury with BUN 26, creatinine 1.72, and GFR 41. Urinalysis was negative for blood, protein, or infection. Covid PCR negative. CT abdomen and pelvis revealed a left perinephritic/retroperitoneal soft tissue suspicious for mass with overall worsening of previously known lymphadenopathy throughout the abdomen and ascending into the mediastinum with persistent splenomegaly consistent with his prior history of lymphoma along with increase and bilateral pleural effusions with left greater than right. Patient was admitted under our services with consultation to oncology, vascular surgery, nephrology, and urology. Abdominal ultrasound was completed revealing a left perinephritic complex vascular mass, recommending further evaluation with MRI. MRI with and without contrast has been ordered and is scheduled to be completed at 1:45 PM this afternoon. Physical exam: Pt seen and fully evaluated at bedside this morning. At time of assessment patient was resting comfortably as he was just medicated for reported left flank pain with Dilaudid by RN. Patient reports current pain medication regimen is successful in controlling pain. Patient is scheduled to undergo MRI later this afternoon. Patient had an episode of hypoglycemia with blood glucose of 56. Order placed for 1 amp D50 and 0.9% normal saline infusion was changed to D5 0.45% due to patient's poor oral appetite. Order also placed for ensure and consult dietitian. Patient has had good urine output over the past 24 hours of 880 mL. Vital signs reviewed and stable. General: Nontoxic, no distress and appears stated age. Thin, malnourished. Derm: Skin warm and dry, normal coloration for ethnicity. Head: Atraumatic, normocephalic and symmetric. Eyes: EOMs intact, no lid lag, and anicteric sclera Mouth: no lip lesions, mucus membranes moist Cardiovascular: regular rate and rhythm with normal S1S2, no murmur, positive posterior tibial pulses bilaterally, and cap refill < 2 seconds. Lungs: Respirations even, regular, and unlabored on room air. Lungs diminished however no rhonchi, rales, or wheezing present, and no accessory muscle usage. Abdominal: soft, diffuse left-sided abdominal tenderness and left flank pain wit h guarding of left flank. Bowel sounds 4 quadrants. Ext: ROM intact. No gross muscle atrophy, no edema, no contractures Neuro: Speech clear, face symmetrical and CN II-XII grossly intact with no noted focal neuro deficits Psych: Alert and oriented to person, place, time, and situation. Appropriate and pleasant affect. Assessment and Plan of Care: Left flank pain Left perinephric complex mass -Computed tomography scan of the abdomen without contrast showed complex mass in the left perinephric area. -Abdominal ultrasound confirmed left. Nephritic complex vascular mass -MRI abdomen with and with contrast pending completion, patient to be medicated with Ativan secondary to his reports of severe claustrophobia prior to being taken down. -Pain control with IV Dilaudid -Hematology/oncology following, appreciate recommendations -Nephrology following, appreciate recommendations -Urology following in agreement with recommendation of MRI and reports further recommendations based on MRI findings. Chronic coagulopathy Chronic anemia of chronic disease Lupus anticogulant -Likely secondary to CLL, hematology/oncology following Chronic lymphocytic leukemia Splenomegaly with lymphadenopathy throughout abdomen and ascending into mediastinum -Patient on Calquence -Hematology/oncology following, appreciate recommendations. Acute kidney injury on stage III chronic kidney disease , improving -Could be secondary prerenal azotemia secondary to hypercalcemia and dehydration in the setting of NSAIDs for pain control use or prerenal as a ISA -Improving with IV fluid hydration -Nephrology consulted started patient on bicarb -Continue holding Lasix -Avoid nephrotoxic agents Mild Hypercalcemia -Improved with IV fluid hydration with current calcium of 10.0. Bilateral pleural effusions, no evidence of pneumonia COPD without acute exacerbation -Supplemental oxygen to be provided as needed to maintain SpO2 equal to or greater than 92%. -Continue Symbicort 2 puffs twice daily along with PRN nebulizer treatments for shortness of breath and/or wheezing. CODE STATUS: Full code DVT prophylaxis: SCDs Discussed with: Patient and RN Anticipated discharge date: Clinical course to determine Anticipated discharge place: Home A total of 39 minutes was spent on the care of this complex patient more than 50% of the time was spent in counseling and care coordination. Eliseo Sanon [employer]NAL TECHNICIAN rendered care for this patient independently, reviewed the findings and plan as documented in the note above. I did not physically speak with or examine the patient on this date. Objective - Vital Signs Vital signs: Vital Signs Temp 97.7 F 03/21/22 04:00 Pulse 83 03/21/22 04:00 Resp 20 03/21/22 04:00 BP 135/70 03/21/22 04:00 Pulse Ox 93 L 03/21/22 04:00 FiO2 Intake & Output 03/20/22 03/21/22 03/21/22 18:59 06:59 18:59 Intake Total 330 Output Total 375 505 Balance -45 -505 Intake: Oral 330 Output: Urine 375 505 Other: Voiding Method Toilet Toilet Urinal Urinal # Voids 2 1 - Labs CBC & Chem 7: 03/21/22 07:23 03/21/22 07:23 Labs: Abnormal Lab Results - Last 24 Hours (Table) 03/20/22 Range/Units 06:44 PT 32.8 H (9.0-12.0) sec INR 3.3 H (<1.2) Microbiology - Last 24 Hours (Table) 03/18/22 09:30 Blood Culture - Preliminary Blood No Growth after 48 hours 03/18/22 09:49 Blood Culture - Preliminary Blood No Growth after 48 hours
[2022-03-21] MEDS ORDERED: LORazepam 1 MG/0.5 ML VIAL IV PRN (16:53)
[2022-03-21 17:03] LABS: Glucose,Whole Blood 97 mg/dL (70-110)
--- NOTE | 2022-03-21 18:20 | MR ---
EXAMINATION TYPE: MR abdomen wo/w con DATE OF EXAM: 03/21/2022 COMPARISON: CT scan 03/18/2022 HISTORY: Left perinephric mass CONTRAST: Standard multiplanar, multisequence MRI departmental protocol images were obtained without contrast a nd with 8 mL intravenous gadolinium contrast. There are large bilateral pleural effusions. Liver shows no focal defect. Liver measures 20 cm in length. There is markedly enlarged spleen that m easures 21 cm. There is some anterior displacement of the left kidney. There is a large mass on the p osterior aspect of the left kidney with mixed signal and measures 9 x 5 cm. No evidence of pancreatic mass. The right kidney appears normal. No adrenal mass. There is massive retroperitoneal adenopathy. There is enlarged abdominal or para-aortic lymph nodes that measure up to 3.5 cm. There is no hydron ephrosis. There is some abdominal ascites fluid in the right paracolic gutter. No evidence of a bowel obstruction. Contrast images show some enhancement of the mass posterior to the left kidney as well as the retrope ritoneal adenopathy. The mass posterior to the left kidney does not appear to be arising from the vickey al cortex. There is normal enhancement of the portal venous system. IMPRESSION: Large posterior perinephric mass likely related to lymphoma. Massive retroperitoneal adenopathy consi stent with lymphoma. Massive splenomegaly. Primary left renal tumor I think is unlikely. Bilateral pleural effusions. Small amount of abdominal ascites fluid in the right abdomen. Abdomen pe lvis not significantly different than recent CT scan.
[2022-03-21 20:09] LABS: Glucose,Whole Blood 76 mg/dL (70-110)
[2022-03-21] MEDS: PARoxetine 20 MG TAB PO SCH (20:19)
[2022-03-21 21:14] LABS: Vitamin D, 1, 25-Dihydroxy 98 pg/mL (20 - 79)
[2022-03-22] MEDS: DEXTROSE 5%-0.45% NACL 1,000 ML IV SCH ×2 (01:42→11:02)
[2022-03-22] MEDS: HYDROmorphone 1 MG/ML 1 ML SYRINGE IVP PRN ×7 (01:42→23:04)
[2022-03-22 06:15] LABS: Glucose,Whole Blood 79 mg/dL (70-110)
[2022-03-22] MEDS: PANTOPRAZOLE 40 MG TABLET PO SCH ×2 (06:53→17:02)
[2022-03-22] MEDS: SYMBICORT 80-4.5 MCG INHALER INHALATION SCH ×2 (07:44→19:28)
[2022-03-22] MEDS: IPRATROPIUM 0.5 MG/2.5 ML NEBU INHALATION SCH ×4 (07:44→19:28)
[2022-03-22] MEDS: FERROUS SULFATE 325 MG TAB PO SCH (08:56)
[2022-03-22] MEDS: GABAPENTIN 100 MG CAP PO SCH ×2 (08:56→21:25)
[2022-03-22] MEDS: SODIUM BICARBONATE TAB 650 MG TAB PO SCH ×2 (08:56→21:26)
[2022-03-22] MEDS: ASPIRIN 325 MG TAB PO SCH (08:56)
[2022-03-22] MEDS: ASCORBIC ACID 500 MG TAB PO SCH (08:56)
[2022-03-22 09:15] LABS: Magnesium 1.6 mg/dL (1.6-2.3); Potassium 3.8 mmol/L (3.5-5.1)
[2022-03-22] MEDS ORDERED: FUROSEMIDE 10 MG/ML 4 ML VIAL IV STA (10:16)
--- NOTE | 2022-03-22 10:18 | P.PN ---
Subjective Patient is seen in follow-up for acute kidney injury on chronic kidney disease. Renal function improved with IV hydration. Good urine output. Blood pressure stable. No active complaints. Blood sugars were low so started on D5 half normal saline by primary team. Vital signs are stable. General: Awake. No acute distress. HEENT: Head exam is unremarkable. LUNGS: Breath sounds decreased. HEART: Rate and Rhythm are regular. ABDOMEN: Soft, no distention. EXTREMITITES: No edema. Objective - Vital Signs Vital signs: Vital Signs Temp 97.8 F 03/22/22 08:53 Pulse 89 03/22/22 08:53 Resp 18 03/22/22 08:53 BP 123/69 03/22/22 08:53 Pulse Ox 90 L 03/22/22 08:53 FiO2 Intake & Output 03/21/22 03/22/22 03/22/22 18:59 06:59 18:59 Intake Total 1526 0 Balance 1526 0 Intake: Intake, IV Titration 1050 Amount Dextrose 5%-0.45% NaCl 1, 600 000 ml @ 100 mls/hr IV . Q10H [facility] Rx#:[id number] Sodium Chloride 0.9% 1, 450 000 ml @ 75 mls/hr IV . [id number] [facility] Rx#:[id number] Oral 476 0 Other: Voiding Method Toilet Toilet Toilet # Voids 0 - Labs CBC & Chem 7: 03/21/22 07:23 03/22/22 08:07 Labs: Abnormal Lab Results - Last 24 Hours (Table) 03/19/22 03/21/22 03/21/22 Range/Units 12:50 12:35 12:51 Sodium (137-145) mmol/L POC Glucose (mg/dL) 55 L 58 L (70-110) mg/dL Vit D 1,25-Dihydroxy 98 H (20 - 79) pg/mL 03/21/22 03/22/22 Range/Units 13:09 08:07 Sodium 135 L (137-145) mmol/L POC Glucose (mg/dL) 66 L (70-110) mg/dL Vit D 1,25-Dihydroxy (20 - 79) pg/mL Microbiology - Last 24 Hours (Table) 03/18/22 09:30 Blood Culture - Preliminary Blood No Growth after 72 hours 03/18/22 09:49 Blood Culture - Preliminary Blood No Growth after 72 hours Assessment and Plan Plan: Assessment: 1. Acute kidney injury mostly prerenal secondary to nonsteroidals, hypovolemia and hypercalcemia. Creatinine 1.72 on admission and is stable at 1.2 today. UA benign. No hydronephrosis noted on CAT scan. 2. Chronic kidney disease stage IIIA with baseline creatinine in the range of 1.2-1.3 secondary to nephrosclerosis. 3. Left lower quadrant abdominal pain. Left kidney mass versus hematoma noted on CAT scan. Oncology and urology following. MRI showed large posterior left perinephric mass related to lymphoma. Retinal peritoneal adenopathy noted. 4. Hypercalcemia secondary to hypovolemia. Not on any vitamin D or calcium supplementation. Improved. PTH low at 2.3. Vitamin D level 43.6. BEATRICE 20. Serum immunofixation showed IgG Paraprotein. 1,25D3 high at 98. Oncology following. 5. History of CLL. Oncology following. 6. Metabolic acidosis secondary to acute kidney injury and IV fluids. On oral bicarbonate. Better. 7. Hypomagnesemia from poor intake. 8. Volume overload. Bilateral effusions noted on MRI. Plan: Stop half-normal saline sodium is at 135. Start D10 at 20 mL an hour. Check chest x-ray. Lasix 40 mg IV once today. Encouraged oral intake. Avoid nephrotoxins. Follow-up pending workup for hypercalcemia. Continue to monitor renal function and urine output. Replace magnesium.
--- NOTE | 2022-03-22 10:38 | P.PN ---
Subjective Progress Note Date: 03/22/22 Hospital course: Patient is a very pleasant 61-year-old male with a past medical history of CLL on Cal[place], chronic kidney stage III, and COPD. He presented to the emergency department on 03/18/22 with a chief complaint of left flank pain. Patient reported this pain began approximately a few weeks ago and significantly worsened over the past few days. He reported the pain still left flank and was accompanied by nausea. He underwent full evaluation in the emergency department. He was found to have significant leukocytosis with WBC count of 18.9 and an acute kidney injury with BUN 26, creatinine 1.72, and GFR 41. Urinalysis was negative for blood, protein, or infection. Covid PCR negative. CT abdomen and pelvis revealed a left perinephritic/retroperitoneal soft tissue suspicious for mass with overall worsening of previously known lymphadenopathy throughout the abdomen and ascending into the mediastinum with persistent splenomegaly consistent with his prior history of lymphoma along with increase and bilateral pleural effusions with left greater than right. Patient was admitted under our services with consultation to oncology, vascular surgery, nephrology, and urology. Abdominal ultrasound was completed revealing a left perinephritic complex vascular mass, recommending further evaluation with MRI. MRI with and without contrast revealed large posterior perinephrotic mass with massive retroperitoneal adenopathy and massive splenomegaly. Physical exam: Pt seen and fully evaluated at bedside this morning. Patient continues to appear in mild distress secondary to reports of pain and again medicated by RN at this time. MRI revealed large posterior perinephrotic mass with massive retroperitoneal adenopathy and massive splenomegaly. MRI also showing signs of fluid overload, D5.45 was discontinued and patient was placed on D5W at 20 mL's per hour by nephrology. Magnesium was also low at 1.6 and 2 g were given for replacement. Vital signs reviewed and stable. General: Nontoxic, no distress and appears stated age. Thin, malnourished. Derm: Skin warm and dry, normal coloration for ethnicity. Head: Atraumatic, normocephalic and symmetric. Eyes: EOMs intact, no lid lag, and anicteric sclera Mouth: no lip lesions, mucus membranes moist Cardiovascular: regular rate and rhythm with normal S1S2, no murmur, positive posterior tibial pulses bilaterally, and cap refill < 2 seconds. Lungs: Respirations even, regular, and unlabored on room air. Lungs diminished however no rhonchi, rales, or wheezing present, and no accessory muscle usage. Abdominal: soft, diffuse left-sided abdominal tenderness and left flank pain with guarding of left flank. Bowel sounds 4 quadrants. Ext: ROM intact. No gross muscle atrophy, no edema, no contractures Neuro: Speech clear, face symmetrical and CN II-XII grossly intact with no noted focal neuro deficits Psych: Alert and oriented to person, place, time, and situation. Appropriate and pleasant affect. Assessment and Plan of Care: Left flank pain Left perinephric complex mass -Computed tomography scan of the abdomen without contrast showed complex mass in the left perinephric area. -Abdominal ultrasound confirmed left. Nephritic complex vascular mass -MRI with and without contrast revealed large posterior perinephrotic mass with massive retroperitoneal adenopathy and massive splenomegaly. -Pain control with IV Dilaudid -Hematology/oncology following, appreciate recommendations -Nephrology following, appreciate recommendations -Urology following and awaiting further recommendations. Chronic coagulopathy Chronic anemia of chronic disease Lupus anticogulant -Likely secondary to CLL, hematology/oncology following Chronic lymphocytic leukemia Splenomegaly with lymphadenopathy throughout abdomen and ascending into mediastinum -Patient on Calquence -Hematology/oncology following, appreciate recommendations. Acute kidney injury on stage III chronic kidney disease , resolved -Improving with IV fluid hydration. -Nephrology consulted started patient on bicarb. -Continue holding Lasix. -Avoid nephrotoxic agents. Mild Hypercalcemia -Improved with IV fluid hydration with current calcium of 10.0. Hypomagnesemia, replaced Bilateral pleural effusions, no evidence of pneumonia COPD without acute exacerbation -Supplemental oxygen to be provided as needed to maintain SpO2 equal to or greater than 92%. -Continue Symbicort 2 puffs twice daily along with PRN nebulizer treatments for shortness of breath and/or wheezing. CODE STATUS: Full code DVT prophylaxis: SCDs Discussed with: Patient and RN Anticipated discharge date: Clinical course to determine Anticipated discharge place: Home A total of 37 minutes was spent on the care of this complex patient more than 50% of the time was spent in counseling and care coordination. Eliseo Sanon NP rendered care for this patient independently, reviewed the findings and plan as documented in the note above. I did not physically speak with or examine the patient on this date. Objective - Vital Signs Vital signs: Vital Signs Temp 98.3 F 03/22/22 03:56 Pulse 88 03/22/22 07:56 Resp 20 03/22/22 03:56 BP 134/82 03/22/22 03:56 Pulse Ox 90 L 03/22/22 07:44 FiO2 Intake & Output 03/21/22 03/22/22 03/22/22 18:59 06:59 18:59 Intake Total 1526 Balance 1526 Intake: Intake, IV Titration 1050 Amount Dextrose 5%-0.45% NaCl 1, 600 000 ml @ 100 mls/hr IV . Q10H [facility] Rx#:[id number] Sodium Chloride 0.9% 1, 450 000 ml @ 75 mls/hr IV . [id number] [facility] Rx#:[id number] Oral 476 Other: Voiding Method Toilet Toilet # Voids 0 - Labs CBC & Chem 7: 03/21/22 07:23 03/22/22 08:07 Labs: Abnormal Lab Results - Last 24 Hours (Table) 03/19/22 03/19/22 03/21/22 Range/Units 12:50 12:50 07:23 PT 30.6 H (9.0-12.0) sec INR 3.1 H (<1.2) Creatinine (0.66-1.25) mg/dL Glucose (74-99) mg/dL POC Glucose (mg/dL) (70-110) mg/dL Total Protein (6.3-8.2) g/dL Albumin (PEP) 3.67 L (3.80-4.90) g/dL Kxsem-4-Magegubgh 0.54 L (0.60-1.00) g/dL Beta Globulins 0.50 L (0.60-1.30) g/dL Gamma Globulins 0.50 L (0.70-1.50) g/dL Vit D 1,25-Dihydroxy 98 H (20 - 79) pg/mL 03/21/22 03/21/22 03/21/22 Range/Units 07:23 12:35 12:51 PT (9.0-12.0) sec INR (<1.2) Creatinine 1.28 H (0.66-1.25) mg/dL Glucose 56 L (74-99) mg/dL POC Glucose (mg/dL) 55 L 58 L (70-110) mg/dL Total Protein 5.4 L (6.3-8.2) g/dL Albumin (PEP) (3.80-4.90) g/dL Absov-3-Ntqtkilug (0.60-1.00) g/dL Beta Globulins (0.60-1.30) g/dL Gamma Globulins (0.70-1.50) g/dL Vit D 1,25-Dihydroxy (20 - 79) pg/mL 03/21/22 Range/Units 13:09 PT (9.0-12.0) sec INR (<1.2) Creatinine (0.66-1.25) mg/dL Glucose (74-99) mg/dL POC Glucose (mg/dL) 66 L (70-110) mg/dL Total Protein (6.3-8.2) g/dL Albumin (PEP) (3.80-4.90) g/dL Jajja-6-Ibzokxqip (0.60-1.00) g/dL Beta Globulins (0.60-1.30) g/dL Gamma Globulins (0.70-1.50) g/dL Vit D 1,25-Dihydroxy (20 - 79) pg/mL Microbiology - Last 24 Hours (Table) 03/18/22 09:30 Blood Culture - Preliminary Blood No Growth after 72 hours 03/18/22 09:49 Blood Culture - Preliminary Blood No Growth after 72 hours
[2022-03-22 10:41] LABS: Free Kappa Lt Chain Qnt, Serum <31.79 mg/dL (0.33-1.94); Free Lambda Lt Chain Qnt, Seru 11.89 mg/dL (0.57-2.63)
--- NOTE | 2022-03-22 11:01 | XR ---
EXAMINATION TYPE: XR chest 1V DATE OF EXAM: 03/22/2022 HISTORY: Shortness of breath. COMPARISON: 03/18/2022 TECHNIQUE: Single view of the chest is submitted. FINDINGS: Demonstrated are scattered senescent parenchymal change. Increasing left lower lobe opacity which may reflect a combination of effusion, atelectasis and/or in filtrate. Additional infiltrate right midlung zone. The heart is stable. Hilar and mediastinal structures are within normal limits. Degenerative changes are seen of the dorsal spine. IMPRESSION: 1. Increasing left lower lobe opacity which may reflect a combination of effusion, atelectasis and/o r infiltrate. Additional infiltrate right midlung zone.
[2022-03-22] MEDS: MAGNESIUM SULFATE-D5W PMX 1 GM in DEXTROSE/WATER 1 100ML.BAG IVPB SCH ×2 (11:03→12:24)
[2022-03-22 12:18] LABS: Glucose,Whole Blood 126 mg/dL (70-110)
[2022-03-22] MEDS: DEXTROSE 10% IN WATER 500 ML in EMPTY BAG 1 BAG IV SCH (13:00)
--- NOTE | 2022-03-22 16:03 | P.PN ---
Subjective No acute overnight events, reviewed MRI that was done yesterday the mass appears to be extrarenal. It appears to be compressing the kidney rather than arising from the kidney. Objective - Vital Signs Vital signs: Vital Signs Temp 98.0 F 03/22/22 11:02 Pulse 88 03/22/22 15:45 Resp 20 03/22/22 11:02 BP 114/69 03/22/22 11:02 Pulse Ox 92 L 03/22/22 15:35 FiO2 Intake & Output 03/21/22 03/22/22 03/22/22 18:59 06:59 18:59 Intake Total 1526 0 Output Total 1050 Balance 1526 -1050 Weight 72.575 kg Intake: Intake, IV Titration 1050 Amount Dextrose 5%-0.45% NaCl 1, 600 000 ml @ 100 mls/hr IV . Q10H [facility] Rx#:[id number] Sodium Chloride 0.9% 1, 450 000 ml @ 75 mls/hr IV . [id number] [facility] Rx#:[id number] Oral 476 0 Output: Urine 1050 Other: Voiding Method Toilet Toilet Toilet # Voids 0 - Constitutional General appearance: Present: no acute distress - Gastrointestinal General gastrointestinal: Present: soft. Absent: distended, tenderness - Psychiatric Psychiatric: Present: A&O x's 3 - Labs CBC & Chem 7: 03/21/22 07:23 03/22/22 08:07 Labs: Abnormal Lab Results - Last 24 Hours (Table) 03/19/22 03/19/22 03/22/22 Range/Units 12:50 12:50 08:07 Sodium 135 L (137-145) mmol/L POC Glucose (mg/dL) (70-110) mg/dL Vit D 1,25-Dihydroxy 98 H (20 - 79) pg/mL Free [place] LC, Quant <31.79 H (0.33-1.94) mg/dL Free Lambda LC, Quant 11.89 H (0.57-2.63) mg/dL 03/22/22 Range/Units 12:05 Sodium (137-145) mmol/L POC Glucose (mg/dL) 126 H (70-110) mg/dL Vit D 1,25-Dihydroxy (20 - 79) pg/mL Free [place] LC, Quant (0.33-1.94) mg/dL Free Lambda LC, Quant (0.57-2.63) mg/dL Microbiology - Last 24 Hours (Table) 03/18/22 09:30 Blood Culture - Preliminary Blood No Growth after 96 hours 03/18/22 09:49 Blood Culture - Preliminary Blood No Growth after 96 hours Assessment and Plan Assessment: 61-year-old male admitted to the hospital with a 9.5 cm left-sided retroperitoneal mass. Underwent MRI of the abdomen on March 21, the the mass appears to be extrarenal. And on review imaging it appears to be compressing the kidney rather than arising from the kidney. Discussed with him this is more likely to be related to his CLL, and given the finding on MRI this does not appear to be renal cell carcinoma. At this time he will not benefit from radical nephrectomy We'll leave management of the lesion to medical oncology. I discussed the finding of the MRI with patient in detail
--- NOTE | 2022-03-22 16:24 | P.PN ---
Subjective Progress Note Date: 03/22/22 Principal diagnosis: Concern of Renal Mass Worsening hypoxia today, MRI performed review of urology and they do not feel nephrectomy will be beneficial. Discussed with primary oncologist Dr. Chen and concern for transformation Richkters transformation, placed biopsy order of en larging node or perirenal mass, if unable possible to ask Urology for biopsy Objective - Vital Signs Vital signs: Vital Signs Temp 97.8 F 03/22/22 08:53 Pulse 89 03/22/22 08:53 Resp 18 03/22/22 08:53 BP 123/69 03/22/22 08:53 Pulse Ox 90 L 03/22/22 08:53 FiO2 Intake & Output 03/21/22 03/22/22 03/22/22 18:59 06:59 18:59 Intake Total 1526 0 Balance 1526 0 Intake: Intake, IV Titration 1050 Amount Dextrose 5%-0.45% NaCl 1, 600 000 ml @ 100 mls/hr IV . Q10H [facility] Rx#:[id number] Sodium Chloride 0.9% 1, 450 000 ml @ 75 mls/hr IV . [id number] [facility] Rx#:[id number] Oral 476 0 Other: Voiding Method Toilet Toilet Toilet # Voids 0 - Exam Gen.: NAD HEENT: Mucosa moist, no conjunctival pallor. Neck: Supple. Bilateral small cervical lymphadenopathy that are mobile however no bulky disease palpable. Lymph:Bilateral small cervical lymphadenopathy that are mobile however no bulky disease palpable. Lungs: No respiratory distress. Heart: Regular rate. Abdomen: Soft, nontender. MSK: Left flank tenderness. Neuro: Alert and oriented 3. Skin: No jaundice. Psych: Initially appropriate affect however he became highly anxious after I mentioned the recommendation of MRI stating his very claustrophobic. - Labs CBC & Chem 7: 03/21/22 07:23 03/22/22 08:07 Labs: Abnormal Lab Results - Last 24 Hours (Table) 03/19/22 03/19/22 03/21/22 Range/Units 12:50 12:50 12:35 Sodium (137-145) mmol/L POC Glucose (mg/dL) 55 L (70-110) mg/dL Vit D 1,25-Dihydroxy 98 H (20 - 79) pg/mL Free [place] LC, Quant <31.79 H (0.33-1.94) mg/dL Free Lambda LC, Quant 11.89 H (0.57-2.63) mg/dL 03/21/22 03/21/22 03/22/22 Range/Units 12:51 13:09 08:07 Sodium 135 L (137-145) mmol/L POC Glucose (mg/dL) 58 L 66 L (70-110) mg/dL Vit D 1,25-Dihydroxy (20 - 79) pg/mL Free [place] LC, Quant (0.33-1.94) mg/dL Free Lambda LC, Quant (0.57-2.63) mg/dL Microbiology - Last 24 Hours (Table) 03/18/22 09:30 Blood Culture - Preliminary Blood No Growth after 72 hours 03/18/22 09:49 Blood Culture - Preliminary Blood No Growth after 72 hours Assessment and Plan Plan: CT scan - abdomen: report reviewed US - abdomen: report reviewed Assessment and Plan Assessment: 1. Left flank pain - Significant not controlled - Add fentanyl and increase Dilaudid frequency 2. Left renal mass: - Likely related to CLL, concern of lymphatic transformation, await MRI for further evaluation - Biopsy ordered if transformed patient is very treatable and options to control quality and quanitity of life exist. 3. CLL: - Calquence on hold until further evaluation of acute hospital proble 4. KEERTHI on CKD 5. Leukocytosis: - due to CLL 6. Chronic coagulopathy 7. Hypoxia: - RLL developing pneumonia on admission -Pulm Following - Also high anxiety, espec with upcoming MRI, premed prior Plan: MRI performed review of urology and they do not feel nephrectomy will be beneficial. Discussed with primary oncologist Dr. Chen and concern for transformation Richkters transformation, placed biopsy order of enlarging node or perirenal mass, if unable possible to ask Urology for biopsy discussed with primary team and palliaitive care for assistance with pain management, hospice should not be considered at this time with options to control symptoms available.
[2022-03-22 16:37] LABS: Glucose,Whole Blood 94 mg/dL (70-110)
[2022-03-22 20:16] LABS: Glucose,Whole Blood 86 mg/dL (70-110)
[2022-03-22] MEDS: SENNOSIDES-DOCUSATE SODIUM 1 EACH TAB PO SCH (21:25)
[2022-03-22] MEDS: PARoxetine 20 MG TAB PO SCH (21:26)
[2022-03-22] MEDS ORDERED: MORPHINE SULFATE 4 MG/ML SYRINGE IVP STA (23:13)
[2022-03-23 06:10] LABS: Glucose,Whole Blood 86 mg/dL (70-110)
[2022-03-23] MEDS: HYDROmorphone 1 MG/ML 1 ML SYRINGE IVP PRN ×4 (06:46→21:21)
[2022-03-23] MEDS: PANTOPRAZOLE 40 MG TABLET PO SCH ×2 (06:46→18:19)
[2022-03-23] MEDS: IPRATROPIUM 0.5 MG/2.5 ML NEBU INHALATION SCH ×4 (08:10→20:07)
[2022-03-23] MEDS: SYMBICORT 80-4.5 MCG INHALER INHALATION SCH ×2 (08:11→20:06)
[2022-03-23] MEDS: ASCORBIC ACID 500 MG TAB PO SCH (09:43)
[2022-03-23] MEDS: SODIUM BICARBONATE TAB 650 MG TAB PO SCH (09:43)
[2022-03-23] MEDS: ASPIRIN 325 MG TAB PO SCH (09:43)
[2022-03-23] MEDS: FERROUS SULFATE 325 MG TAB PO SCH (09:43)
[2022-03-23] MEDS: SENNOSIDES-DOCUSATE SODIUM 1 EACH TAB PO SCH ×2 (09:43→19:50)
[2022-03-23] MEDS: GABAPENTIN 100 MG CAP PO SCH ×2 (09:43→19:50)
[2022-03-23 09:48] LABS: Calcium 11.3 mg/dL (8.4-10.2); Potassium 3.9 mmol/L (3.5-5.1); Total Bilirubin 1.4 mg/dL (0.2-1.3); Total Protein 6.1 g/dL (6.3-8.2)
--- NOTE | 2022-03-23 10:03 | P.PN ---
Subjective Progress Note Date: 03/23/22 Hospital course: Patient is a very pleasant 61-year-old male with a past medical history of CLL on [place], chronic kidney stage III, and COPD. He presented to the emergency department on 03/18/22 with a chief complaint of left flank pain. Patient reported this pain began approximately a few weeks ago and significantly worsened over the past few days. He reported the pain still left flank and was accompanied by nausea. He underwent full evaluation in the emergency department. He was found to have significant leukocytosis with WBC count of 18.9 and an acute kidney injury with BUN 26, creatinine 1.72, and GFR 41. Urinalysis was negative for blood, protein, or infection. Covid PCR negative. CT abdomen and pelvis revealed a left perinephritic/retroperitoneal soft tissue suspicious for mass with overall worsening of previously known lymphadenopathy throughout the abdomen and ascending into the mediastinum with persistent splenomegaly consistent with his prior history of lymphoma along with increase and bilateral pleural effusions with left greater than right. Patient was admitted under our services with consultation to oncology, vascular surgery, nephrology, and urology. Abdominal ultrasound was completed revealing a left perinephritic complex vascular mass, recommending further evaluation with MRI. MRI with and without contrast revealed large posterior perinephrotic mass with massive retroperitoneal adenopathy and massive splenomegaly. Physical exam: Pt seen and fully evaluated at bedside this morning. He continues to appear in mild distress secondary to moderate pain. Morning labs reviewed. Creatinine 1.3 a and total bili slightly elevated at 1.4 otherwise no significant abnormal ities. Patient was sitting up in bed, he appeared uncomfortable and anxious and requesting additional pain medications at this time. Patient was on the phone throughout assessment, states that he has to talk with his landlord, Pt states he is trying to let them know that he is in the hospital so they do not evict him because his rent payment was due on the first. Patient on 3 L O2 via nasal cannula. He remains on D5 at 20 mL's per hour and blood glucose levels stable. Magnesium improved and was 2.0 this morning. Update Shortly after initial assessment around 9:40 AM, Patient was found by RN to be hypoxic with SpO2 of 78% on room air at this time as patient removed his nasal cannula. Patient was placed on nonrebreather mask at 15 L via nasal cannula. Nephrology was at bedside and ordered for Lasix 40 mg IVP 1 dose secondary to his fluid overload. I went back to assess patient and a repeat time of assessment, patient on nonrebreather with respirations even, regular, and unlabored. Patient is much more calm at this time and appeared to be breathing comfortably. On discussion with patient regarding CODE STATUS if respiratory symptoms worsen, patient initially wanting to be a DO NOT RESUSCITATE, however he stated he needs to talk to his niece and nephew and wants to remain a full code at this time. Vital signs reviewed and stable. General: Nontoxic, no distress and appears stated age. Thin, malnourished. Derm: Skin warm and dry, normal coloration for ethnicity. Head: Atraumatic, normocephalic and symmetric. Eyes: EOMs intact, no lid lag, and anicteric sclera Mouth: no lip lesions, mucus membranes moist Cardiovascular: regular rate and rhythm with normal S1S2, no murmur, positive posterior tibial pulses bilaterally, and cap refill < 2 seconds. Lungs: Respirations even, regular, and unlabored on room air. Lungs diminished however no rhonchi, rales, or wheezing present, and no accessory muscle usage. Abdominal: soft, diffuse left-sided abdominal tenderness and left flank pain with guarding of left flank. Bowel sounds 4 quadrants. Ext: ROM intact. No gross muscle atrophy, no edema, no contractures Neuro: Speech clear, face symmetrical and CN II-XII grossly intact with no noted focal neuro deficits Psych: Alert and oriented to person, place, time, and situation. Appropriate and pleasant affect. Assessment and Plan of Care: Left flank pain Left perinephric complex mass -Computed tomography scan of the abdomen without contrast showed complex mass in the left perinephric area. -Abdominal ultrasound confirmed left. Nephritic complex vascular mass -MRI with and without contrast revealed large posterior perinephrotic mass with massive retroperitoneal adenopathy and massive splenomegaly. -Pain control with IV Dilaudid -Hematology/oncology following, appreciate recommendations -Nephrology following, appreciate recommendations -Urology following and awaiting further recommendations. Acute respiratory failure with hypoxia -Secondary to fluid overload. -Chest x-ray revealing increasing left lower lobe opacity reflective of effusion and an additional infiltrate in right midlung. -Lasix administered -Pulmonology re-consulted Chronic coagulopathy Chronic anemia of chronic disease Lupus anticogulant -Likely secondary to CLL, hematology/oncology following Chronic lymphocytic leukemia Splenomegaly with lymphadenopathy throughout abdomen and ascending into mediastinum -Patient on Calquence -Hematology/oncology following, appreciate recommendations. Acute kidney injury on stage III chronic kidney disease , resolved -Improving with IV fluid hydration. -Nephrology consulted started patient on bicarb. -Continue holding Lasix. -Avoid nephrotoxic agents. Mild Hypercalcemia -Improved with IV fluid hydration with current calcium of 10.0. Hypomagnesemia, replaced Bilateral pleural effusions, no evidence of pneumonia COPD without acute exacerbation -Supplemental oxygen to be provided as needed to maintain SpO2 equal to or greater than 92%. -Continue Symbicort 2 puffs twice daily along with PRN nebulizer treatments for shortness of breath and/or wheezing. CODE STATUS: Full code DVT prophylaxis: SCDs Discussed with: Patient and RN Anticipated discharge date: Clinical course to determine Anticipated discharge place: Home A total of 42 minutes was spent on the care of this complex patient more than 50% of the time was spent in counseling and care coordination. Objective - Vital Signs Vital signs: Vital Signs Temp 98.7 F 03/23/22 04:00 Pulse 99 03/23/22 04:00 Resp 18 03/23/22 04:00 BP 120/62 03/23/22 04:00 Pulse Ox 92 L 03/23/22 04:00 FiO2 Intake & Output 03/22/22 03/23/22 03/23/22 18:59 06:59 18:59 Intake Total 0 Output Total 1550 640 Balance -1550 -640 Weight 72.575 kg Intake: Oral 0 Output: Urine 1550 640 Other: Voiding Method Toilet Urinal # Voids 1 - Labs CBC & Chem 7: 03/23/22 08:14 03/23/22 08:14 Labs: Abnormal Lab Results - Last 24 Hours (Table) 03/19/22 03/22/22 03/22/22 Range/Units 12:50 08:07 12:05 Sodium 135 L (137-145) mmol/L POC Glucose (mg/dL) 126 H (70-110) mg/dL Free [place] LC, Quant <31.79 H (0.33-1.94) mg/dL Free Lambda LC, Quant 11.89 H (0.57-2.63) mg/dL Microbiology - Last 24 Hours (Table) 03/18/22 09:30 Blood Culture - Preliminary Blood No Growth after 96 hours 03/18/22 09:49 Blood Culture - Preliminary Blood No Growth after 96 hours
[2022-03-23] MEDS ORDERED: FUROSEMIDE 10 MG/ML 4 ML VIAL IV STA (10:09)
--- NOTE | 2022-03-23 10:14 | P.PN ---
Subjective Patient is seen in follow-up for acute kidney injury on chronic kidney disease. Renal function a little worse today from diuresis. Calcium level also higher at 11.3. Good urine output. Blood pressure stable. No active complaints. Receiving D10 due to low blood sugars. Vital signs are stable. General: Awake. No acute distress. HEENT: Head exam is unremarkable. LUNGS: Breath sounds decreased. HEART: Rate and Rhythm are regular. ABDOMEN: Soft, no distention. EXTREMITITES: No edema. Objective - Vital Signs Vital signs: Vital Signs Temp 98.7 F 03/23/22 04:00 Pulse 92 03/23/22 08:24 Resp 18 03/23/22 04:00 BP 120/62 03/23/22 04:00 Pulse Ox 92 L 03/23/22 04:00 FiO2 Intake & Output 03/22/22 03/23/22 03/23/22 18:59 06:59 18:59 Intake Total 0 330 Output Total 1550 640 Balance -1550 -640 330 Weight 72.575 kg Intake: Oral 0 330 Output: Urine 1550 640 Other: Voiding Method Toilet Urinal # Voids 1 - Labs CBC & Chem 7: 03/21/22 07:23 03/23/22 08:14 Labs: Abnormal Lab Results - Last 24 Hours (Table) 03/19/22 03/22/22 03/23/22 Range/Units 12:50 12:05 08:14 Sodium 136 L (137-145) mmol/L Chloride 97 L (98-107) mmol/L Creatinine 1.38 H (0.66-1.25) mg/dL POC Glucose (mg/dL) 126 H (70-110) mg/dL Calcium 11.3 H (8.4-10.2) mg/dL Total Bilirubin 1.4 H (0.2-1.3) mg/dL Total Protein 6.1 L (6.3-8.2) g/dL Free [place] LC, Quant <31.79 H (0.33-1.94) mg/dL Free [place] LC, Quant 11.89 H (0.57-2.63) mg/dL Microbiology - Last 24 Hours (Table) 03/18/22 09:30 Blood Culture - Preliminary Blood No Growth after 96 hours 03/18/22 09:49 Blood Culture - Preliminary Blood No Growth after 96 hours Assessment and Plan Plan: Assessment: 1. Acute kidney injury mostly prerenal secondary to nonsteroidals, hypovolemia and hypercalcemia. Creatinine 1.72 on admission - 1.38 today. Renal function slightly worse from diuresis. UA benign. No hydronephrosis noted on CAT scan. 2. Chronic kidney disease stage IIIA with baseline creatinine in the range of 1.2-1.3 secondary to nephrosclerosis. 3. Left lower quadrant abdominal pain. Left kidney mass versus hematoma noted on CAT scan. Oncology and urology following. MRI showed large posterior left perinephric mass related to lymphoma. Retinal peritoneal adenopathy noted. 4. Hypercalcemia secondary to hypovolemia and lymphoma. Not on any vitamin D or calcium supplementation. Improved. PTH low at 2.3. Vitamin D level 43.6. BEATRICE 20. Serum immunofixation showed IgG Paraprotein. 1,25D3 high at 98. Oncolog y following. 5. History of CLL. Oncology following. 6. Metabolic acidosis secondary to acute kidney injury and IV fluids. On oral bicarbonate. Better. 7. Hypomagnesemia from poor intake. Replaced. Better. 8. Volume overload. Plan: Calcium level 11.3 today and also has an elevated calcitriol level which is due to enhanced calcitriol production from the underlying malignancy. Will start him on prednisone to reduce calcitriol production and subsequently calcium concentration - plan to start prednisone after biopsy done. Discussed with oncology. Repeat IV Lasix 40 mg once today. I will give him a dose of IM calcitonin today. Encouraged oral intake. Avoid nephrotoxins. Continue to monitor renal function and urine output. Stop oral bicarbonate.
[2022-03-23] MEDS ORDERED: predniSONE 20 MG TAB PO SCH (10:15)
[2022-03-23] MEDS ORDERED: CALCITONIN INJ 200 UNIT/ML (MDV) VIAL IM ONE (11:00)
[2022-03-23 11:41] LABS: Glucose,Whole Blood 97 mg/dL (70-110)
--- NOTE | 2022-03-23 12:06 | P.PN ---
Subjective Progress Note Date: 03/23/22 Principal diagnosis: Concern of Renal Mass Consult placed for biopsy to assess for CLL transformation, Recheck CBC and OCags, likely will need reversle of Coagulopathy prior to biopsy. Discussed with nephrology today and would like to start prednision, will await if we are able to obtain biopsy first so that results are not altered. Objective - Vital Signs Vital signs: Vital Signs Temp 97.3 F L 03/23/22 08:00 Pulse 95 03/23/22 11:51 Resp 18 03/23/22 08:00 BP 122/65 03/23/22 08:00 Pulse Ox 94 L 03/23/22 11:43 FiO2 Intake & Output 03/22/22 03/23/22 03/23/22 18:59 06:59 18:59 Intake Total 0 330 Output Total 1550 640 Balance -1550 -640 330 Weight 72.575 kg Intake: Oral 0 330 Output: Urine 1550 640 Other: Voiding Method Toilet Urinal Urinal # Voids 1 - Exam Gen.: NAD HEENT: Mucosa moist, no conjunctival pallor. Neck: Supple. Bilateral small cervical lymphadenopathy that are mobile however no bulky disease palpable. Lymph:Bilateral small cervical lymphadenopathy that are mobile however no bulky disease palpable. Lungs: No respiratory distress. Heart: Regular rate. Abdomen: Soft, nontender. MSK: Left flank tenderness. Neuro: Alert and oriented 3. Skin: No jaundice. Psych: Initially appropriate affect however he became highly anxious after I mentioned the recommendation of MRI stating his very claustrophobic. - Labs CBC & Chem 7: 03/21/22 07:23 03/23/22 08:14 Labs: Abnormal Lab Results - Last 24 Hours (Table) 03/22/22 03/23/22 Range/Units 12:05 08:14 Sodium 136 L (137-145) mmol/L Chloride 97 L (98-107) mmol/L Creatinine 1.38 H (0.66-1.25) mg/dL POC Glucose (mg/dL) 126 H (70-110) mg/dL Calcium 11.3 H (8.4-10.2) mg/dL Total Bilirubin 1.4 H (0.2-1.3) mg/dL Total Protein 6.1 L (6.3-8.2) g/dL Microbiology - Last 24 Hours (Table) 03/18/22 09:49 Blood Culture - Preliminary Blood No Growth after 120 hours 03/18/22 09:30 Blood Culture - Preliminary Blood No Growth after 96 hours Assessment and Plan Plan: CT scan - abdomen: report reviewed US - abdomen: report reviewed Assessment and Plan Assessment: 1. Left flank pain - Significant not controlled - Add fentanyl and increase Dilaudid frequency 2. Left renal mass: - Likely related to CLL, concern of lymphatic transformation, await MRI for further evaluation - Biopsy ordered if transformed patient is very treatable and options to control quality and quanitity of life exist. 3. CLL: - Calquence on hold until further evaluation of acute hospital proble 4. KEERTHI on CKD 5. Leukocytosis: - due to CLL 6. Chronic coagulopathy 7. Hypoxia: - RLL developing pneumonia on admission -Pulm Following - Also high anxiety, espec with upcoming MRI, premed prior Plan: Await CBC and COag - Vitamin K likely needed in preparation for biopsy Await IR plan for Biopsy Discussed with nephrology and would like to begin prednisone, idealy obtaining biopsy first would favor most accurate resulrts Continue pain management and bowel protocol
[2022-03-23 12:36] LABS: Anisocytosis Slight; Basophils % (A) 1 %; Eosinophils # (A) 0.1 k/uL (0-0.7); Eosinophils % (A) 3 %; HCT 53.4 % (39.0-53.0); HGB 15.8 gm/dL (13.0-17.5); Hypochromasia Marked; Lymphocytes # (A) 0.8 k/uL (1.0-4.8); Lymphocytes % (A) 18 %; MCH 24.1 pg (25.0-35.0); MCHC 29.7 g/dL (31.0-37.0); MCV 81.1 fL (80.0-100.0); Mean Platelet Volume 8.9; Microcytosis Slight; Monocytes # (A) 0.3 k/uL (0-1.0); Monocytes % (A) 6 %; Neutrophils % (A) 68 %; Platelet Count 225 k/uL (150-450); RBC 6.58 m/uL (4.30-5.90); RDW 18.7 % (11.5-15.5); WBC 4.5 k/uL (3.8-10.6)
[2022-03-23 13:15] LABS: INR 2.8 (<1.2); Prothrombin Time 27.8 sec (9.0-12.0)
[2022-03-23] MEDS ORDERED: PHYTONADIONE 5 MG in SODIUM CHLORIDE 0.9% 50 ML IVPB STA (14:47)
[2022-03-23 15:52] LABS: Uric Acid 11.9 mg/dL (3.5-8.5)
[2022-03-23] MEDS: ALBUTEROL NEBULIZED 2.5 MG/3 ML INHALATION PRN ×2 (16:03→20:07)
[2022-03-23 16:31] LABS: Glucose,Whole Blood 81 mg/dL (70-110)
[2022-03-23] MEDS: PARoxetine 20 MG TAB PO SCH (19:50)
[2022-03-23] MEDS: DEXTROSE 10% IN WATER 500 ML in EMPTY BAG 1 BAG IV SCH (19:53)
[2022-03-23 21:48] LABS: Glucose,Whole Blood 94 mg/dL (70-110)
[2022-03-24] MEDS: HYDROmorphone 1 MG/ML 1 ML SYRINGE IVP PRN ×6 (02:07→23:32)
[2022-03-24 06:08] LABS: Glucose,Whole Blood 88 mg/dL (70-110)
[2022-03-24] MEDS: PANTOPRAZOLE 40 MG TABLET PO SCH ×2 (06:39→18:15)
[2022-03-24 08:04] LABS: Anisocytosis Slight; Basophils % (A) 1 %; Eosinophils # (A) 0.1 k/uL (0-0.7); Eosinophils % (A) 3 %; HCT 50.4 % (39.0-53.0); HGB 15.1 gm/dL (13.0-17.5); Hypochromasia Marked; Lymphocytes # (A) 0.8 k/uL (1.0-4.8); Lymphocytes % (A) 17 %; MCH 23.7 pg (25.0-35.0); MCHC 29.9 g/dL (31.0-37.0); MCV 79.3 fL (80.0-100.0); Mean Platelet Volume 8.5; Microcytosis Slight; Monocytes # (A) 0.4 k/uL (0-1.0); Monocytes % (A) 9 %; Neutrophils # (A) 3.3 k/uL (1.3-7.7); Neutrophils % (A) 67 %; Platelet Count 203 k/uL (150-450); RBC 6.36 m/uL (4.30-5.90); RDW 18.5 % (11.5-15.5)
[2022-03-24] MEDS: SYMBICORT 80-4.5 MCG INHALER INHALATION SCH ×2 (08:08→19:40)
[2022-03-24] MEDS: IPRATROPIUM 0.5 MG/2.5 ML NEBU INHALATION SCH ×4 (08:08→19:40)
[2022-03-24 08:20] LABS: Ionized Calcium 5.3 mg/dL (4.5-5.3)
[2022-03-24 08:25] LABS: Calcium 10.5 mg/dL (8.4-10.2); Potassium 3.7 mmol/L (3.5-5.1); Total Bilirubin 1.3 mg/dL (0.2-1.3); Total Protein 5.9 g/dL (6.3-8.2)
[2022-03-24 08:36] LABS: INR 3.3 (<1.2)
[2022-03-24 08:37] LABS: Magnesium 1.7 mg/dL (1.6-2.3); Prothrombin Time 33.3 sec (9.0-12.0)
[2022-03-24] MEDS ORDERED: PHYTONADIONE 10 MG in SODIUM CHLORIDE 0.9% 50 ML IVPB STA (09:25)
--- NOTE | 2022-03-24 09:30 | P.PN ---
Subjective Patient is seen in follow-up for acute kidney injury on chronic kidney disease. Renal function is stable. Calcium level 10.5 today with normal albumin. Good urine output. Blood pressure stable. Required nonrebreather yesterday due to worsening shortness of breath. Currently on nasal cannula. Vital signs are stable. General: Awake. No acute distress. HEENT: Head exam is unremarkable. LUNGS: Breath sounds decreased. HEART: Rate and Rhythm are regular. ABDOMEN: Soft, no distention. EXTREMITITES: No edema. Objective - Vital Signs Vital signs: Vital Signs Temp 97.5 F L 03/24/22 04:00 Pulse 96 03/24/22 08:25 Resp 18 03/24/22 04:00 BP 138/78 03/24/22 04:00 Pulse Ox 93 L 03/24/22 04:00 FiO2 40 03/24/22 08:09 Intake & Output 03/23/22 03/24/22 03/24/22 18:59 06:59 18:59 Intake Total 570 Output Total 825 300 Balance -255 -300 Intake: Oral 570 Output: Urine 825 300 Other: Voiding Method Urinal # Voids 1 - Labs CBC & Chem 7: 03/24/22 07:40 03/24/22 07:40 Labs: Abnormal Lab Results - Last 24 Hours (Table) 03/23/22 03/23/22 03/23/22 Range/Units 08:14 08:14 12:30 RBC 6.58 H (4.30-5.90) m/uL Hct 53.4 H (39.0-53.0) % MCV (80.0-100.0) fL MCH 24.1 L (25.0-35.0) pg MCHC 29.7 L (31.0-37.0) g/dL RDW 18.7 H (11.5-15.5) % Lymphocytes # 0.8 L (1.0-4.8) k/uL PT 27.8 H (9.0-12.0) sec INR 2.8 H (<1.2) Fibrinogen (200-500) mg/dL D-Dimer (<0.60) mg/L FEU Sodium 136 L (137-145) mmol/L Chloride 97 L (98-107) mmol/L Creatinine 1.38 H (0.66-1.25) mg/dL Glucose (74-99) mg/dL Uric Acid (3.5-8.5) mg/dL Calcium 11.3 H (8.4-10.2) mg/dL Total Bilirubin 1.4 H (0.2-1.3) mg/dL Lactate Dehydrogenase (313-618) U/L Total Protein 6.1 L (6.3-8.2) g/dL 03/23/22 03/24/22 03/24/22 Range/Units 15:07 07:40 07:40 RBC 6.36 H (4.30-5.90) m/uL Hct (39.0-53.0) % MCV 79.3 L (80.0-100.0) fL MCH 23.7 L (25.0-35.0) pg MCHC 29.9 L (31.0-37.0) g/dL RDW 18.5 H (11.5-15.5) % Lymphocytes # 0.8 L (1.0-4.8) k/uL PT (9.0-12.0) sec INR (<1.2) Fibrinogen (200-500) mg/dL D-Dimer (<0.60) mg/L FEU Sodium 134 L (137-145) mmol/L Chloride 96 L (98-107) mmol/L Creatinine 1.34 H (0.66-1.25) mg/dL Glucose 105 H (74-99) mg/dL Uric Acid 11.9 H (3.5-8.5) mg/dL Calcium 10.5 H (8.4-10.2) mg/dL Total Bilirubin (0.2-1.3) mg/dL Lactate Dehydrogenase 781 H (313-618) U/L Total Protein 5.9 L (6.3-8.2) g/dL 03/24/22 Range/Units 07:40 RBC (4.30-5.90) m/uL Hct (39.0-53.0) % MCV (80.0-100.0) fL MCH (25.0-35.0) pg MCHC (31.0-37.0) g/dL RDW (11.5-15.5) % Lymphocytes # (1.0-4.8) k/uL PT 33.3 H (9.0-12.0) sec INR 3.3 H (<1.2) Fibrinogen 179 L (200-500) mg/dL D-Dimer 1.49 H (<0.60) mg/L FEU Sodium (137-145) mmol/L Chloride (98-107) mmol/L Creatinine (0.66-1.25) mg/dL Glucose (74-99) mg/dL Uric Acid (3.5-8.5) mg/dL Calcium (8.4-10.2) mg/dL Total Bilirubin (0.2-1.3) mg/dL Lactate Dehydrogenase (313-618) U/L Total Protein (6.3-8.2) g/dL Microbiology - Last 24 Hours (Table) 03/18/22 09:30 Blood Culture - Preliminary Blood No Growth after 120 hours 03/18/22 09:49 Blood Culture - Preliminary Blood No Growth after 120 hours Assessment and Plan Plan: Assessment: 1. Acute kidney injury mostly prerenal secondary to nonsteroidals, hypovolemia and hypercalcemia. Creatinine 1.72 on admission - stable at 1.34 today. UA benign. No hydronephrosis noted on CAT scan. 2. Chronic kidney disease stage IIIA with baseline creatinine in the range of 1.2-1.3 secondary to nephrosclerosis. 3. Left lower quadrant abdominal pain. Left kidney mass versus hematoma noted on CAT scan. Oncology and urology following. MRI showed large posterior left perinephric mass related to lymphoma. Retinal peritoneal adenopathy noted. 4. Hypercalcemia secondary to hypovolemia and lymphoma. Not on any vitamin D or calcium supplementation. Improved. PTH low at 2.3. Vitamin D level 43.6. BEATRICE 20. Serum immunofixation showed IgG Paraprotein. 1,25D3 high at 98. Oncology following. 5. History of CLL. Oncology following. Biopsy pending. 6. Metabolic acidosis secondary to acute kidney injury and IV fluids. Status post by mouth bicarb. Resolved. 7. Hypomagnesemia from poor intake and diuresis. 8. Volume overload. Plan: Patient has hypercalcemia with an elevated calcitriol level which is due to enhanced calcitriol production from the underlying malignancy. Will start him on prednisone to reduce calcitriol production and subsequently calcium concentration - plan to start prednisone after biopsy done. Discussed with oncology. Add IV Lasix 40 mg once daily. Encouraged oral intake. Avoid nephrotoxins. Continue to monitor renal function and urine output. Replace magnesium.
--- NOTE | 2022-03-24 10:21 | XR ---
EXAMINATION TYPE: XR chest 1V portable DATE OF EXAM: 03/24/2022 CLINICAL HISTORY: Difficulty breathing progress study. TECHNIQUE: Single AP portable upright view of the chest is obtained. COMPARISON: Chest x-ray from 2 days earlier FINDINGS: Persistent small to moderate size left pleural effusion with associated left lung atelecta sis and/or infiltrate. Slightly more prominent right basilar opacity. Improved aeration right mid jeniffer g. Cardiac silhouette size is stable and within normal limits. Osseous structures are intact. IMPRESSION: Stable small to moderate-size left pleural effusion with associated left mid to lower jeniffer g acute infiltrate and/or atelectasis. Improved right midlung acute infiltrate. New right basilar acu te infiltrate and/or atelectasis and possible tiny right pleural effusion.
[2022-03-24] MEDS: GABAPENTIN 100 MG CAP PO SCH ×2 (10:32→20:19)
[2022-03-24] MEDS: FERROUS SULFATE 325 MG TAB PO SCH (10:32)
[2022-03-24] MEDS: SENNOSIDES-DOCUSATE SODIUM 1 EACH TAB PO SCH ×2 (10:32→20:19)
[2022-03-24] MEDS: ASCORBIC ACID 500 MG TAB PO SCH (10:33)
[2022-03-24] MEDS: MAGNESIUM SULFATE-D5W PMX 1 GM in DEXTROSE/WATER 1 100ML.BAG IVPB SCH ×2 (10:34→11:21)
[2022-03-24] MEDS: clonazePAM 0.5 MG TAB PO PRN (10:35)
[2022-03-24] MEDS: ASPIRIN 325 MG TAB PO SCH (11:16)
[2022-03-24 11:35] LABS: Glucose,Whole Blood 95 mg/dL (70-110)
[2022-03-24] MEDS: FUROSEMIDE 10 MG/ML 4 ML VIAL IV SCH (12:30)
--- NOTE | 2022-03-24 15:35 | P.PN ---
Subjective Progress Note Date: 03/24/22 Hospital course: Patient is a very pleasant 61-year-old male with a past medical history of CLL on Calquence, chronic kidney stage III, and COPD. He presented to the emergency department on 03/18/22 with a chief complaint of left flank pain. Patient reported this pain began approximately a few weeks ago and significantly worsened over the past few days. He reported the pain still left flank and was accompanied by nausea. He underwent full evaluation in the emergency department. He was found to have significant leukocytosis with WBC count of 18.9 and an acute kidney injury with BUN 26, creatinine 1.72, and GFR 41. Urinalysis was negative for blood, protein, or infection. Covid PCR negative. CT abdomen and pelvis revealed a left perinephritic/retroperitoneal soft tissue suspicious for mass with overall worsening of previously known lymphadenopathy throughout the abdomen and ascending into the mediastinum with persistent splenomegaly consistent with his prior history of lymphoma along with increase and bilateral pleural effusions with left greater than right. Patient was admitted under our services with consultation to oncology, vascular surgery, nephrology, and urology. Abdominal ultrasound was completed revealing a left perinephritic complex vascular mass, recommending further evaluation with MRI. MRI with and without contrast revealed large posterior perinephrotic mass with massive retroperitoneal adenopathy and massive splenomegaly. Physical exam: Pt seen and fully evaluated at bedside this morning. Patient currently on a venturi mask at 12 L O2 with 40% FiO2 with oxygen saturations of 93%. Patient does report that his pain to his left flank has improved when compared to the p ain he has experienced in the previous days. Oncology recommending biopsy of mass, INR was elevated yesterday and interventional radiology unable to perform. Patient was given 1 dose of vitamin K yesterday and awaiting repeat INR today. We will obtain a repeat chest x-ray secondary to increased oxygenation needs and continue to monitor closely. Vital signs reviewed and stable. General: Nontoxic, no distress and appears stated age. Thin, malnourished. Derm: Skin warm and dry, normal coloration for ethnicity. Head: Atraumatic, normocephalic and symmetric. Eyes: EOMs intact, no lid lag, and anicteric sclera Mouth: no lip lesions, mucus membranes moist Cardiovascular: regular rate and rhythm with normal S1S2, no murmur, positive posterior tibial pulses bilaterally, and cap refill < 2 seconds. Lungs: Respirations even, regular, and unlabored on 12 L O2 via venturi mask with FiO2 of 40%. Lungs diminished with soft expiratory wheezes with no rhonchi, rales, or crackles present, and no accessory muscle usage. Abdominal: soft, diffuse left-sided abdominal tenderness and left flank pain with guarding of left flank. Bowel sounds 4 quadrants. Ext: ROM intact. No gross muscle atrophy, no edema, no contractures Neuro: Speech clear, face symmetrical and CN II-XII grossly intact with no noted focal neuro deficits Psych: Alert and oriented to person, place, time, and situation. Appropriate and pleasant affect. Assessment and Plan of Care: Left flank pain Left perinephric complex mass -Computed tomography scan of the abdomen without contrast showed complex mass in the left perinephric area. -Abdominal ultrasound confirmed left. Nephritic complex vascular mass -MRI with and without contrast revealed large posterior perinephrotic mass with massive retroperitoneal adenopathy and massive splenomegaly. -Pain control with IV Dilaudid -Hematology/oncology following, appreciate recommendations -Nephrology following, appreciate recommendations -Urology following and awaiting further recommendations. Acute respiratory failure with hypoxia -Secondary to fluid overload. -Chest x-ray revealing increasing left lower lobe opacity reflective of effusion and an additional infiltrate in right midlung. -Lasix 40 mg daily with strict monitoring of I's and O's. -Pulmonology following, appreciate further recommendations. -Order placed for repeat chest x-ray secondary to increasing oxygenation needs. Chronic coagulopathy Chronic anemia of chronic disease Lupus anticogulant -Likely secondary to CLL, hematology/oncology following Chronic lymphocytic leukemia Splenomegaly with lymphadenopathy throughout abdomen and ascending into mediastinum -Patient on Calquence -Hematology/oncology following, appreciate recommendations. Acute kidney injury on stage III chronic kidney disease , resolved -Improving with IV fluid hydration. -Nephrology consulted started patient on bicarb. -Continue holding Lasix. -Avoid nephrotoxic agents. Mild Hypercalcemia -Improved with IV fluid hydration with current calcium of 10.5 with ionized calc ium of 5.3. Hypomagnesemia, replaced Bilateral pleural effusions, no evidence of pneumonia COPD without acute exacerbation -Supplemental oxygen to be provided as needed to maintain SpO2 equal to or greater than 92%. -Continue Symbicort 2 puffs twice daily along with PRN nebulizer treatments for shortness of breath and/or wheezing. CODE STATUS: Full code DVT prophylaxis: SCDs Discussed with: Patient and RN Anticipated discharge date: Clinical course to determine Anticipated discharge place: Home A total of 39 minutes was spent on the care of this complex patient more than 50% of the time was spent in counseling and care coordination. Objective - Vital Signs Vital signs: Vital Signs Temp 97.5 F L 03/24/22 04:00 Pulse 96 03/24/22 08:09 Resp 18 03/24/22 04:00 BP 138/78 03/24/22 04:00 Pulse Ox 93 L 03/24/22 04:00 FiO2 40 03/24/22 08:09 Intake & Output 03/23/22 03/24/22 03/24/22 18:59 06:59 18:59 Intake Total 570 Output Total 825 300 Balance -255 -300 Intake: Oral 570 Output: Urine 825 300 Other: Voiding Method Urinal # Voids 1 - Labs CBC & Chem 7: 03/24/22 07:40 03/24/22 07:40 Labs: Abnormal Lab Results - Last 24 Hours (Table) 03/23/22 03/23/22 03/23/22 Range/Units 08:14 08:14 12:30 RBC 6.58 H (4.30-5.90) m/uL Hct 53.4 H (39.0-53.0) % MCV (80.0-100.0) fL MCH 24.1 L (25.0-35.0) pg MCHC 29.7 L (31.0-37.0) g/dL RDW 18.7 H (11.5-15.5) % Lymphocytes # 0.8 L (1.0-4.8) k/uL PT 27.8 H (9.0-12.0) sec INR 2.8 H (<1.2) Sodium 136 L (137-145) mmol/L Chloride 97 L (98-107) mmol/L Creatinine 1.38 H (0.66-1.25) mg/dL Glucose (74-99) mg/dL Uric Acid (3.5-8.5) mg/dL Calcium 11.3 H (8.4-10.2) mg/dL Total Bilirubin 1.4 H (0.2-1.3) mg/dL Lactate Dehydrogenase (313-618) U/L Total Protein 6.1 L (6.3-8.2) g/dL 03/23/22 03/24/22 03/24/22 Range/Units 15:07 07:40 07:40 RBC 6.36 H (4.30-5.90) m/uL Hct (39.0-53.0) % MCV 79.3 L (80.0-100.0) fL MCH 23.7 L (25.0-35.0) pg MCHC 29.9 L (31.0-37.0) g/dL RDW 18.5 H (11.5-15.5) % Lymphocytes # 0.8 L (1.0-4.8) k/uL PT (9.0-12.0) sec INR (<1.2) Sodium 134 L (137-145) mmol/L Chloride 96 L (98-107) mmol/L Creatinine 1.34 H (0.66-1.25) mg/dL Glucose 105 H (74-99) mg/dL Uric Acid 11.9 H (3.5-8.5) mg/dL Calcium 10.5 H (8.4-10.2) mg/dL Total Bilirubin (0.2-1.3) mg/dL Lactate Dehydrogenase 781 H (313-618) U/L Total Protein 5.9 L (6.3-8.2) g/dL Microbiology - Last 24 Hours (Table) 03/18/22 09:30 Blood Culture - Preliminary Blood No Growth after 120 hours 03/18/22 09:49 Blood Culture - Preliminary Blood No Growth after 120 hours
[2022-03-24 16:41] LABS: Glucose,Whole Blood 96 mg/dL (70-110)
[2022-03-24 17:17] LABS: Uric Acid 12.2 mg/dL (3.5-8.5)
[2022-03-24] MEDS: DEXTROSE 10% IN WATER 500 ML in EMPTY BAG 1 BAG IV SCH (18:15)
[2022-03-24] MEDS: LEVOFLOXACIN 500MG-D5W PMX 500 MG in DEXTROSE/WATER 1 100ML.BAG IVPB SCH (18:16)
[2022-03-24] MEDS: PARoxetine 20 MG TAB PO SCH (20:19)
[2022-03-24 21:15] LABS: Glucose,Whole Blood 105 mg/dL (70-110)
--- NOTE | 2022-03-24 21:33 | P.PN ---
Subjective Progress Note Date: 03/24/22 Principal diagnosis: Concern of Renal Mass Vitamin K 10mg today ASA Held for biopsy Worsening Oxygenation, requiring NRB/Venti Repeat chest xray worsening infiltrates, Levaquin started. Pulmonary is following Objective - Vital Signs Vital signs: Vital Signs Temp 97.5 F L 03/24/22 04:00 Pulse 96 03/24/22 08:25 Resp 18 03/24/22 04:00 BP 138/78 03/24/22 04:00 Pulse Ox 93 L 03/24/22 04:00 FiO2 40 03/24/22 08:09 Intake & Output 03/23/22 03/24/22 03/24/22 18:59 06:59 18:59 Intake Total 570 Output Total 825 300 Balance -255 -300 Intake: Oral 570 Output: Urine 825 300 Other: Voiding Method Urinal # Voids 1 - Exam Gen.: NAD HEENT: Mucosa moist, no conjunctival pallor. Neck: Supple. Bilateral small cervical lymphadenopathy that are mobile however no bulky disease palpable. Lymph:Bilateral small cervical lymphadenopathy that are mobile however no bulky disease palpable. Lungs: No respiratory distress. Heart: Regular rate. Abdomen: Soft, nontender. MSK: Left flank tenderness. Neuro: Alert and oriented 3. Skin: No jaundice. Psych: Initially appropriate affect however he became highly anxious after I mentioned the recommendation of MRI stating his very claustrophobic. - Labs CBC & Chem 7: 03/24/22 07:40 03/24/22 07:40 Labs: Abnormal Lab Results - Last 24 Hours (Table) 03/23/22 03/23/22 03/23/22 Range/Units 08:14 08:14 12:30 RBC 6.58 H (4.30-5.90) m/uL Hct 53.4 H (39.0-53.0) % MCV (80.0-100.0) fL MCH 24.1 L (25.0-35.0) pg MCHC 29.7 L (31.0-37.0) g/dL RDW 18.7 H (11.5-15.5) % Lymphocytes # 0.8 L (1.0-4.8) k/uL PT 27.8 H (9.0-12.0) sec INR 2.8 H (<1.2) Fibrinogen (200-500) mg/dL D-Dimer (<0.60) mg/L FEU Sodium 136 L (137-145) mmol/L Chloride 97 L (98-107) mmol/L Creatinine 1.38 H (0.66-1.25) mg/dL Glucose (74-99) mg/dL Uric Acid (3.5-8.5) mg/dL Calcium 11.3 H (8.4-10.2) mg/dL Total Bilirubin 1.4 H (0.2-1.3) mg/dL Lactate Dehydrogenase (313-618) U/L Total Protein 6.1 L (6.3-8.2) g/dL 03/23/22 03/24/22 03/24/22 Range/Units 15:07 07:40 07:40 RBC 6.36 H (4.30-5.90) m/uL Hct (39.0-53.0) % MCV 79.3 L (80.0-100.0) fL MCH 23.7 L (25.0-35.0) pg MCHC 29.9 L (31.0-37.0) g/dL RDW 18.5 H (11.5-15.5) % Lymphocytes # 0.8 L (1.0-4.8) k/uL PT (9.0-12.0) sec INR (<1.2) Fibrinogen (200-500) mg/dL D-Dimer (<0.60) mg/L FEU Sodium 134 L (137-145) mmol/L Chloride 96 L (98-107) mmol/L Creatinine 1.34 H (0.66-1.25) mg/dL Glucose 105 H (74-99) mg/dL Uric Acid 11.9 H (3.5-8.5) mg/dL Calcium 10.5 H (8.4-10.2) mg/dL Total Bilirubin (0.2-1.3) mg/dL Lactate Dehydrogenase 781 H (313-618) U/L Total Protein 5.9 L (6.3-8.2) g/dL 03/24/22 Range/Units 07:40 RBC (4.30-5.90) m/uL Hct (39.0-53.0) % MCV (80.0-100.0) fL MCH (25.0-35.0) pg MCHC (31.0-37.0) g/dL RDW (11.5-15.5) % Lymphocytes # (1.0-4.8) k/uL PT 33.3 H (9.0-12.0) sec INR 3.3 H (<1.2) Fibrinogen 179 L (200-500) mg/dL D-Dimer 1.49 H (<0.60) mg/L FEU Sodium (137-145) mmol/L Chloride (98-107) mmol/L Creatinine (0.66-1.25) mg/dL Glucose (74-99) mg/dL Uric Acid (3.5-8.5) mg/dL Calcium (8.4-10.2) mg/dL Total Bilirubin (0.2-1.3) mg/dL Lactate Dehydrogenase (313-618) U/L Total Protein (6.3-8.2) g/dL Microbiology - Last 24 Hours (Table) 03/18/22 09:30 Blood Culture - Preliminary Blood No Growth after 120 hours 03/18/22 09:49 Blood Culture - Preliminary Blood No Growth after 120 hours Assessment and Plan Plan: CT scan - abdomen: report reviewed US - abdomen: report reviewed Assessment and Plan Assessment: 1. Left flank pain - Significant not controlled - Add fentanyl and increase Dilaudid frequency 2. Left renal mass: - Likely related to CLL, concern of lymphatic transformation, await MRI for further evaluation - Biopsy ordered if transformed patient is very treatable and options to control quality and quanitity of life exist. - Have asked for comparision of PET cscan from September 18. CLL: - Calquence on hold until further evaluation of acute hospital proble 4. KEERTHI on CKD 5. Leukocytosis: - due to CLL 6. Chronic coagulopathy 7. Hypoxia: - RLL developing pneumonia on admission -Pulm Following - Also high anxiety, espec with upcoming MRI, premed prior Plan: Await CBC and COag - Vitamin K likely needed in preparation for biopsy Await IR plan for Biopsy Continue pain management and bowel protocol Uric acid 11.9 - rasburicase for lysis Stat IgG Level and IVIG for less than 500 Serial Pt/INR/PTT Patient appears to be critical at the moment, have attempted to contact his family to discuss goals of care, no ability to leave message. Concern for rapidly progressing and possible transformed CLL
[2022-03-25] MEDS: HYDROmorphone 1 MG/ML 1 ML SYRINGE IVP PRN ×6 (01:56→20:07)
[2022-03-25] MEDS: PANTOPRAZOLE 40 MG TABLET PO SCH ×3 (05:58→16:37)
[2022-03-25 06:28] LABS: Glucose,Whole Blood 90 mg/dL (70-110)
[2022-03-25] MEDS: clonazePAM 0.5 MG TAB PO PRN ×2 (08:03→20:06)
[2022-03-25] MEDS: SENNOSIDES-DOCUSATE SODIUM 1 EACH TAB PO SCH ×2 (08:03→20:06)
[2022-03-25] MEDS: GABAPENTIN 100 MG CAP PO SCH ×2 (08:03→20:06)
[2022-03-25] MEDS: ASCORBIC ACID 500 MG TAB PO SCH (08:03)
[2022-03-25] MEDS: FERROUS SULFATE 325 MG TAB PO SCH (08:04)
[2022-03-25] MEDS: FUROSEMIDE 10 MG/ML 4 ML VIAL IV SCH ×2 (08:04→20:07)
[2022-03-25 08:31] LABS: INR 2.8 (<1.2); Partial Thromboplastin Time 71.2 sec (22.0-30.0); Prothrombin Time 27.8 sec (9.0-12.0)
[2022-03-25] MEDS: IPRATROPIUM 0.5 MG/2.5 ML NEBU INHALATION SCH ×4 (08:32→19:22)
[2022-03-25 08:46] LABS: Ionized Calcium 5.9 mg/dL (4.5-5.3)
[2022-03-25 08:59] LABS: Anisocytosis Slight; HCT 49.7 % (39.0-53.0); Hypochromasia Marked; MCH 24.1 pg (25.0-35.0); MCHC 30.2 g/dL (31.0-37.0); MCV 79.8 fL (80.0-100.0); Mean Platelet Volume 8.6; Microcytosis Slight; Platelet Count 223 k/uL (150-450); RBC 6.22 m/uL (4.30-5.90); RDW 18.3 % (11.5-15.5); WBC 6.1 k/uL (3.8-10.6)
[2022-03-25 09:16] LABS: Albumin 4.2 g/dL (3.5-5.0); Calcium 11.3 mg/dL (8.4-10.2); Magnesium 1.9 mg/dL (1.6-2.3); Phosphorus 3.6 mg/dL (2.5-4.5); Potassium 3.8 mmol/L (3.5-5.1); Total Bilirubin 1.3 mg/dL (0.2-1.3); Total Protein 6.2 g/dL (6.3-8.2); Uric Acid 12.2 mg/dL (3.5-8.5)
[2022-03-25] MEDS ORDERED: CALCITONIN INJ 200 UNIT/ML (MDV) VIAL IM ONE (10:32)
--- NOTE | 2022-03-25 10:38 | P.PN ---
Subjective Patient is seen in follow-up for acute kidney injury on chronic kidney disease. Renal function is stable. Calcium level up to 11.3 today. Good urine output. Blood pressure stable. Currently on 50% Ventimask. Quite lethargic. Vital signs are stable. General: Awake. No acute distress. HEENT: Head exam is unremarkable. On Ventimask. LUNGS: Breath sounds decreased. HEART: Rate and Rhythm are regular. ABDOMEN: Soft, no distention. EXTREMITITES: No edema. Objective - Vital Signs Vital signs: Vital Signs Temp 97.5 F L 03/25/22 08:00 Pulse 96 03/25/22 08:00 Resp 20 03/25/22 08:00 BP 117/71 03/25/22 08:00 Pulse Ox 93 L 03/25/22 08:00 FiO2 50 03/25/22 08:00 Intake & Output 03/24/22 03/25/22 03/25/22 18:59 06:59 18:59 Intake Total 270 Output Total 575 550 Balance -575 -280 Intake: Oral 270 Output: Urine 575 550 Other: Voiding Method Urinal Urinal Urinal - Labs CBC & Chem 7: 03/25/22 07:54 03/25/22 07:54 Labs: Abnormal Lab Results - Last 24 Hours (Table) 03/24/22 03/24/22 03/25/22 Range/Units 07:40 15:53 07:54 RBC 6.22 H (4.30-5.90) m/uL MCV 79.8 L (80.0-100.0) fL MCH 24.1 L (25.0-35.0) pg MCHC 30.2 L (31.0-37.0) g/dL RDW 18.3 H (11.5-15.5) % PT (9.0-12.0) sec INR (<1.2) APTT (22.0-30.0) sec Fibrinogen (200-500) mg/dL Sodium (137-145) mmol/L Chloride (98-107) mmol/L Carbon Dioxide (22-30) mmol/L Creatinine (0.66-1.25) mg/dL Uric Acid 12.2 H (3.5-8.5) mg/dL Calcium (8.4-10.2) mg/dL Ionized Calcium Young (4.5-5.3) mg/dL Lactate Dehydrogenase 803 H (313-618) U/L Total Protein (6.3-8.2) g/dL IgG 573.0 L (700.0-1600.0) mg/dL 03/25/22 03/25/22 Range/Units 07:54 07:54 RBC (4.30-5.90) m/uL MCV (80.0-100.0) fL MCH (25.0-35.0) pg MCHC (31.0-37.0) g/dL RDW (11.5-15.5) % PT 27.8 H (9.0-12.0) sec INR 2.8 H (<1.2) APTT 71.2 H (22.0-30.0) sec Fibrinogen 148 L (200-500) mg/dL Sodium 133 L (137-145) mmol/L Chloride 93 L (98-107) mmol/L Carbon Dioxide 32 H (22-30) mmol/L Creatinine 1.35 H (0.66-1.25) mg/dL Uric Acid 12.2 H (3.5-8.5) mg/dL Calcium 11.3 H (8.4-10.2) mg/dL Ionized Calcium Young 5.9 H (4.5-5.3) mg/dL Lactate Dehydrogenase 698 H (313-618) U/L Total Protein 6.2 L (6.3-8.2) g/dL IgG (700.0-1600.0) mg/dL Microbiology - Last 24 Hours (Table) 03/18/22 09:30 Blood Culture - Final Blood No Growth after 144 hours 03/18/22 09:49 Blood Culture - Final Blood No Growth after 144 hours Assessment and Plan Plan: Assessment: 1. Acute kidney injury mostly prerenal secondary to nonsteroidals, hypovolemia and hypercalcemia. Creatinine 1.72 on admission - stable at 1.35 today. UA benign. No hydronephrosis noted on CAT scan. 2. Chronic kidney disease stage IIIA with baseline creatinine in the range of 1.2-1.3 secondary to nephrosclerosis. 3. Left lower quadrant abdominal pain. Left kidney mass versus hematoma noted on CAT scan. Oncology and urology following. MRI showed large posterior left perinephric mass related to lymphoma. Retroperitoneal adenopathy noted. 4. Hypercalcemia secondary to hypovolemia and lymphoma. Not on any vitamin D or calcium supplementation. Improved. PTH low at 2.3. Vitamin D level 43.6. BEATRICE 20. Serum immunofixation showed IgG Paraprotein. 1,25D3 high at 98. Oncology following. 5. History of CLL. Oncology following. Biopsy pending. 6. Metabolic acidosis secondary to acute kidney injury and IV fluids. Status post po bicarb. Resolved. 7. Hypomagnesemia from poor intake and diuresis. Replaced. Better. 8. Volume overload. On IV Lasix. 9. Hyperuricemia. ?tumor lysis; defer rasburicase to heme/onc. Plan: Patient has hypercalcemia with an elevated calcitriol level which is due to enhanced calcitriol production from the underlying malignancy. Will start him on prednisone to reduce calcitriol production and subsequently calcium concentration - plan to start prednisone after biopsy done. Discussed with oncology. Increase IV Lasix to 40 mg twice daily. I will give him a dose of calcitonin today. Encouraged oral intake. Avoid nephrotoxins. Continue to monitor renal function and urine output.
--- NOTE | 2022-03-25 10:52 | US ---
EXAMINATION TYPE: US chest DATE OF EXAM: 03/25/2022 COMPARISON: chest xray from yesterday. CLINICAL HISTORY: left pleural effusion. Abnormal x-ray. TECHNIQUE: Targeted ultrasound of the posterior lower bilateral hemithoraces EXAM MEASUREMENTS: Left Pleural Effusion pocket size: 11.8 cm Left skin surface to fluid distance: 1.3 cm Left side marked for possible thoracentesis outside the dept. Pulmonologists are able to review the images in the patient?s EMR. Small to moderate size left pleural effusion is confirmed on images saved. Only small to tiny right p leural effusion is present. IMPRESSIONS: As above.
[2022-03-25 11:00] LABS: Eosinophils # (M) 0.31 k/uL (0-0.7); Lymphocytes # (M) 0.31 k/uL (1.0-4.8); Monocytes # (M) 0.43 k/uL (0-1.0); Neutrophils # (M) 5.06 k/uL (1.3-7.7); Neutrophils % (M) 83 %; Nucleated Red Blood Cells 0 /100 WBC (0-0); Total Cells Counted 100
[2022-03-25 11:33] LABS: Glucose,Whole Blood 92 mg/dL (70-110)
[2022-03-25] MEDS: SYMBICORT 80-4.5 MCG INHALER INHALATION SCH ×2 (11:50→19:22)
[2022-03-25] MEDS ORDERED: PHYTONADIONE 10 MG in SODIUM CHLORIDE 0.9% 50 ML IVPB STA (13:03)
--- NOTE | 2022-03-25 13:08 | P.PN ---
Subjective Progress Note Date: 03/25/22 Principal diagnosis: Increasing left pleural effusion This is a 61-year-old male patient, known history of COPD, coming in with a left flank pain has been going on for few weeks with progressive worsening over the past few days. No nausea. No vomiting. No hematemesis. No hematuria. No shortness of breath other than his chronic dyspnea. He is known to have COPD maintained on a combination of Advair and Spiriva on outpatient basis. He also carries a diagnosis of CLL that was followed up by Dr. Faulkner. He is known to have extensive lymphadenopathy related to his CLL. Based on the most recent oncology evaluation, there has been progression his CLL based on progression his lymphadenopathy. In the ED, the patient was found to have a hemoglobin of 14.1 with a white cell count of 18.9. Coagulation profile was abnormal and the patient has been quite neuropathic even prior admissions. No known history of chronic liver disease although the patient has drank alcohol many years back in excessive amounts. He has chronic kidney disease in the creatinine is at 1.7 with a BUN of 26 and creatinine of 1.7. Sodium is at 137. COVID 19 testing is negative. Electrodes are normal. Calcium level was 11.7. A CAT scan of the abdomen and pelvis was done and it showed a left perinephric/retroperitoneal soft tissue density which is either a mass versus hematoma and this was not present on previous evaluation or there has been probably a subtle finding in 2020. There is also overall worsening in the lymphadenopathy about the abdomen and ascending into the mediastinum with splenomegaly. The patient also has small bilateral pleural effusions. The patient is currently on room air oxygen. Ultrasound of the left kidney was ordered. 03/19/2022, no signs of pneumonia. The patient has no new GI symptoms. Left flank pain is improving. Ultrasound the left kidney was noted. The patient has a complex soft tissue mass and will need an MRI. This is likely progression of his underlying CLL with possibly lymphomatous transformation. Mother the patient was receiving Calquence since October 2021. On 03/25/2022 we're asked to see the patient again in regards to increasing left-sided pleural effusion with associated mid to lower lung infiltrate/atelectasis. Right midlung acute infiltrate was noted to be improving. Patient is currently on 50% Ventimask, he states his breathing is about the same, however is having some left upper abdominal discomfort. Patient has not had his biopsy of his left kidney related to increased INR. He was given vitamin K, today's INR is 2.8. Patient is afebrile, overall does not appear to be in distress. An ultrasound the chest was obtained today showing left pleural effusion pocket measuring 11.8 cm. Objective - Vital Signs Vital signs: Vital Signs Temp 97.5 F L 03/25/22 08:00 Pulse 96 03/25/22 12:04 Resp 20 03/25/22 12:00 BP 139/84 03/25/22 12:00 Pulse Ox 97 03/25/22 12:00 FiO2 50 03/25/22 11:50 Intake & Output 03/24/22 03/25/22 03/25/22 18:59 06:59 18:59 Intake Total 270 Output Total 575 550 500 Balance -575 280 500 Intake: Oral 270 Output: Urine 575 550 500 Other: Voiding Method Urinal Urinal Urinal - Exam GENERAL EXAM: Alert, very pleasant, 61-year-old white male, on 50% Ventimask comfortable in no apparent distress. HEAD: Normocephalic/atraumatic. EYES: Normal reaction of pupils, equal size. Conjunctiva pink, sclera white. NOSE: Clear with pink turbinates. THROAT: No erythema or exudates. NECK: No masses, no JVD, no thyroid enlargement, no adenopathy. CHEST: No chest wall deformity. Symmetrical expansion. LUNGS: Diminished breath sounds over left lower lobe, with dullness to percussion CVS: Regular rate and rhythm, normal S1 and S2, no gallops, no murmurs, no rubs ABDOMEN: Soft, nontender. No hepatosplenomegaly, normal bowel sounds, no guarding or rigidity. EXTREMITIES: No clubbing, no edema, no cyanosis, 2+ pulses and upper and lower extremities. MUSCULOSKELETAL: Muscle strength and tone normal. SPINE: No scoliosis or deformity SKIN: No rashes CENTRAL NERVOUS SYSTEM: Alert and oriented -3. No focal deficits, tone is normal in all 4 extremities. PSYCHIATRIC: Alert and oriented -3. Appropriate affect. Intact judgment and insight. - Labs CBC & Chem 7: 03/25/22 07:54 03/25/22 07:54 Labs: Abnormal Lab Results - Last 24 Hours (Table) 03/24/22 03/24/22 03/25/22 Range/Units 07:40 15:53 07:54 RBC 6.22 H (4.30-5.90) m/uL MCV 79.8 L (80.0-100.0) fL MCH 24.1 L (25.0-35.0) pg MCHC 30.2 L (31.0-37.0) g/dL RDW 18.3 H (11.5-15.5) % Lymphocytes # (Manual) 0.31 L (1.0-4.8) k/uL PT (9.0-12.0) sec INR (<1.2) APTT (22.0-30.0) sec Fibrinogen (200-500) mg/dL Sodium (137-145) mmol/L Chloride (98-107) mmol/L Carbon Dioxide (22-30) mmol/L Creatinine (0.66-1.25) mg/dL Uric Acid 12.2 H (3.5-8.5) mg/dL Calcium (8.4-10.2) mg/dL Ionized Calcium Young (4.5-5.3) mg/dL Lactate Dehydrogenase 803 H (313-618) U/L Total Protein (6.3-8.2) g/dL IgG 573.0 L (700.0-1600.0) mg/dL 03/25/22 03/25/22 Range/Units 07:54 07:54 RBC (4.30-5.90) m/uL MCV (80.0-100.0) fL MCH (25.0-35.0) pg MCHC (31.0-37.0) g/dL RDW (11.5-15.5) % Lymphocytes # (Manual) (1.0-4.8) k/uL PT 27.8 H (9.0-12.0) sec INR 2.8 H (<1.2) APTT 71.2 H (22.0-30.0) sec Fibrinogen 148 L (200-500) mg/dL Sodium 133 L (137-145) mmol/L Chloride 93 L (98-107) mmol/L Carbon Dioxide 32 H (22-30) mmol/L Creatinine 1.35 H (0.66-1.25) mg/dL Uric Acid 12.2 H (3.5-8.5) mg/dL Calcium 11.3 H (8.4-10.2) mg/dL Ionized Calcium Young 5.9 H (4.5-5.3) mg/dL Lactate Dehydrogenase 698 H (313-618) U/L Total Protein 6.2 L (6.3-8.2) g/dL IgG (700.0-1600.0) mg/dL Microbiology - Last 24 Hours (Table) 03/18/22 09:30 Blood Culture - Final Blood No Growth after 144 hours 03/18/22 09:49 Blood Culture - Final Blood No Growth after 144 hours Assessment and Plan Plan: Assessment: #1. Increasing left pleural effusion, ultrasound of the chest showing 11.8 cm pleural effusion pocket. We'll consider thoracentesis once the INR is down to less than 1.5-1.8 #2. Left flank pain, likely due to enlarging complex mass in the left perinephric area consider lymphoma or conglomeration of lymphadenopathy related to patient's history of CLL #3. Chronic lymphocytic leukemia/CLL with history of disease progression and extensive abdominal and mediastinal lymphadenopathy #4. Lupus anticoagulant blood work #5. History of COPD maintained on Advair and Spiriva on an outpatient basis #6. Previous history of COVID-19 infection in October 2020 #7. Chronic anemia #8. Coagulopathy likely secondary to positive lupus anticoagulant #9. Mild hypercalcemia Plan: Chest ultrasound results have been reviewed Today's INR is 2.8 We'll give additional vitamin K 10 mg IV piggyback today Daily PT/INR Obtain consent for possible left-sided thoracentesis tomorrow on 03/26/2022 if his INR is between 1.5-1.8 I have personally seen and examined the patient, performed the documentation and the assessment and plan as written. Number of minutes spent on the visit: [15] Time with Patient: Less than 30
[2022-03-25 13:56] LABS: Total Protein 6.3 g/dL (6.3-8.2)
--- NOTE | 2022-03-25 14:14 | P.PN ---
Subjective Progress Note Date: 03/25/22 Hospital course: Patient is a very pleasant 61-year-old male with a past medical history of CLL on Calquence, chronic kidney stage III, and COPD. He presented to the emergency department on 03/18/22 with a chief complaint of left flank pain. Patient reported this pain began approximately a few weeks ago and significantly worsened over the past few days. He reported the pain still left flank and was accompanied by nausea. He underwent full evaluation in the emergency department. He was found to have significant leukocytosis with WBC count of 18.9 and an acute kidney injury with BUN 26, creatinine 1.72, and GFR 41. Urinalysis was negative for blood, protein, or infection. Covid PCR negative. CT abdomen and pelvis revealed a left perinephritic/retroperitoneal soft tissue suspicious for mass with overall worsening of previously known lymphadenopathy throughout the abdomen and ascending into the mediastinum with persistent splenomegaly consistent with his prior history of lymphoma along with increase and bilateral pleural effusions with left greater than right. Patient was admitted under our services with consultation to oncology, vascular surgery, nephrology, and urology. Abdominal ultrasound was completed revealing a left perinephritic complex vascular mass, recommending further evaluation with MRI. MRI with and without contrast revealed large posterior perinephrotic mass with massive retroperitoneal adenopathy and massive splenomegaly. Oncology consulted interventional radiology to perform biopsy of renal mass. INR remains elevated, unable to complete biopsy until INR has improved. Patient given vitamin K. On 03/23/22, patient was found to be hypoxic and had increasing oxygen needs. Repeat x-ray revealed increasing left lower lobe effusion. Pulmonology re-consulted at this time for evaluation. On 03/25/22 ultrasound of chest was completed which revealed an 11.8 cm pleural effusion pocket. Patient will likely need to u ndergo thoracentesis. However INR remains elevated at this time and patient given additional dose of vitamin K. Physical exam: Pt seen and fully evaluated at bedside this morning. Patient was on venturi mask at 15 L O2 with 50% FiO2 with oxygen saturations of 93%. Patient appeared to be breathing comfortably at this time. He reported mild pain to left flank stating it is about the same as yesterday and definitely more tolerable than in the previous days. Patient has received a total of 2 doses of vitamin K. Morning labs reveal INR remaining elevated at 2.8. Pulmonology evaluated patient this morning and completed ultrasound of chest which revealed an 11.8 cm pleural effusion pocket, they're giving an additional dose of vitamin K as patient will likely need to have thoracentesis once INR is less than 1.5. Oncology and interventional radiology continue to follow. Patient will also undergo biopsy of renal mass again once INR is less than 1.5. Vital signs reviewed and stable. General: Nontoxic, no distress and appears stated age. Thin, malnourished. Derm: Skin warm and dry, normal coloration for ethnicity. Head: Atraumatic, normocephalic and symmetric. Eyes: EOMs intact, no lid lag, and anicteric sclera Mouth: no lip lesions, mucus membranes moist Cardiovascular: regular rate and rhythm with normal S1S2, no murmur, positive posterior tibial pulses bilaterally, and cap refill < 2 seconds. Lungs: Respirations even, regular, and unlabored on 15 L O2 via venturi mask with FiO2 of 50%. Lungs diminished no rhonchi, rales, wheezes or crackles present, and no accessory muscle usage. Abdominal: soft, diffuse left-sided abdominal tenderness and left flank pain with guarding of left flank. Bowel sounds 4 quadrants. Ext: ROM intact. No gross muscle atrophy, no edema, no contractures Neuro: Speech clear, face symmetrical and CN II-XII grossly intact with no noted focal neuro deficits Psych: Alert and oriented to person, place, time, and situation. Appropriate and pleasant affect. Assessment and Plan of Care: Left flank pain Left perinephric complex mass -Computed tomography scan of the abdomen without contrast showed complex mass in the left perinephric area. -Abdominal ultrasound confirmed left. Nephritic complex vascular mass -MRI with and without contrast revealed large posterior perinephrotic mass with massive retroperitoneal adenopathy and massive splenomegaly. -Pain control with IV Dilaudid -Hematology/oncology following, appreciate recommendations -Nephrology following, appreciate recommendations -Urology following and awaiting further recommendations. Acute respiratory failure with hypoxia secondary to increasing left pleural effusion -Ultrasound chest completed revealing an 11.8 cm pleural effusion pocket -Chest x-ray revealing increasing left lower lobe opacity reflective of effusion and an additional infiltrate in right midlung. -Lasix 40 mg daily with strict monitoring of I's and O's. -Pulmonology following, planning for possible thoracentesis once INR has improved. Chronic coagulopathy Chronic anemia of chronic disease Lupus anticogulant -Likely secondary to CLL, hematology/oncology following. -Patient given vitamin K and hopes to obtain improvement of INR so renal biopsy and thoracentesis can be completed. Chronic lymphocytic leukemia Splenomegaly with lymphadenopathy throughout abdomen and ascending into mediastinum -Patient on Calquence -Hematology/oncology following, appreciate recommendations. Acute kidney injury on stage III chronic kidney disease , resolved -Improving with IV fluid hydration. -Nephrology consulted started patient on bicarb. -Continue holding Lasix. -Avoid nephrotoxic agents. Mild Hypercalcemia -Improved with IV fluid hydration with current calcium of 11.3 with ionized calcium of 5.9. Hypomagnesemia, replaced COPD without acute exacerbation -Continue Symbicort 2 puffs twice daily along with PRN nebulizer treatments for shortness of breath and/or wheezing. CODE STATUS: Full code DVT prophylaxis: SCDs Discussed with: Patient, pulmonary and RN Anticipated discharge date: Clinical course to determine Anticipated discharge place: Home A total of 37 minutes was spent on the care of this complex patient more than 50% of the time was spent in counseling and care coordination. Objective - Vital Signs Vital signs: Vital Signs Temp 97.9 F 03/25/22 04:00 Pulse 95 03/25/22 04:00 Resp 22 03/25/22 04:00 BP 125/74 03/25/22 04:00 Pulse Ox 94 L 03/25/22 04:00 FiO2 50 03/25/22 04:00 Intake & Output 03/24/22 03/25/22 03/25/22 18:59 06:59 18:59 Intake Total 270 Output Total 575 550 Balance -575 -280 Intake: Oral 270 Output: Urine 575 550 Other: Voiding Method Urinal Urinal - Labs CBC & Chem 7: 03/25/22 07:54 03/25/22 07:54 Labs: Abnormal Lab Results - Last 24 Hours (Table) 03/24/22 03/24/22 03/25/22 Range/Units 07:40 15:53 07:54 PT 27.8 H (9.0-12.0) sec INR 2.8 H (<1.2) APTT 71.2 H (22.0-30.0) sec Fibrinogen 148 L (200-500) mg/dL Uric Acid 12.2 H (3.5-8.5) mg/dL Lactate Dehydrogenase 803 H (313-618) U/L IgG 573.0 L (700.0-1600.0) mg/dL Microbiology - Last 24 Hours (Table) 03/18/22 09:30 Blood Culture - Final Blood No Growth after 144 hours 03/18/22 09:49 Blood Culture - Final Blood No Growth after 144 hours
[2022-03-25] MEDS: DEXTROSE 10% IN WATER 500 ML in EMPTY BAG 1 BAG IV SCH (14:43)
[2022-03-25 16:19] LABS: Glucose,Whole Blood 91 mg/dL (70-110)
[2022-03-25] MEDS: LEVOFLOXACIN 500MG-D5W PMX 500 MG in DEXTROSE/WATER 1 100ML.BAG IVPB SCH (16:37)
[2022-03-25] MEDS: LORazepam 0.5 MG TAB PO PRN (16:37)
[2022-03-25] MEDS: PARoxetine 20 MG TAB PO SCH (20:06)
[2022-03-25 21:10] LABS: Glucose,Whole Blood 92 mg/dL (70-110)
--- NOTE | 2022-03-25 22:25 | P.PN ---
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 Awaiting repeat antiphospholipid work-up will further discuss with IR in am Objective - Vital Signs Vital signs: Vital Signs Temp 97.5 F L 03/25/22 08:00 Pulse 96 03/25/22 12:04 Resp 20 03/25/22 12:00 BP 139/84 03/25/22 12:00 Pulse Ox 97 03/25/22 12:00 FiO2 50 03/25/22 11:50 Intake & Output 03/24/22 03/25/22 03/25/22 18:59 06:59 18:59 Intake Total 270 Output Total 575 550 500 Balance -575 280 -500 Intake: Oral 270 Output: Urine 575 550 500 Other: Voiding Method Urinal Urinal Urinal - Exam Gen.: NAD HEENT: Mucosa moist, no conjunctival pallor. Neck: Supple. Bilateral small cervical lymphadenopathy that are mobile however no bulky disease palpable. Lymph:Bilateral small cervical lymphadenopathy that are mobile however no bulky disease palpable. Lungs: No respiratory distress. Heart: Regular rate. Abdomen: Soft, nontender. MSK: Left flank tenderness. Neuro: Alert and oriented 3. Skin: No jaundice. Psych: Initially appropriate affect however he became highly anxious after I mentioned the recommendation of MRI stating his very claustrophobic. - Labs CBC & Chem 7: 03/25/22 07:54 03/25/22 07:54 Labs: Abnormal Lab Results - Last 24 Hours (Table) 03/24/22 03/24/22 03/25/22 Range/Units 07:40 15:53 07:54 RBC 6.22 H (4.30-5.90) m/uL MCV 79.8 L (80.0-100.0) fL MCH 24.1 L (25.0-35.0) pg MCHC 30.2 L (31.0-37.0) g/dL RDW 18.3 H (11.5-15.5) % Lymphocytes # (Manual) 0.31 L (1.0-4.8) k/uL PT (9.0-12.0) sec INR (<1.2) APTT (22.0-30.0) sec Fibrinogen (200-500) mg/dL Sodium (137-145) mmol/L Chloride (98-107) mmol/L Carbon Dioxide (22-30) mmol/L Creatinine (0.66-1.25) mg/dL Uric Acid 12.2 H (3.5-8.5) mg/dL Calcium (8.4-10.2) mg/dL Ionized Calcium Young (4.5-5.3) mg/dL Lactate Dehydrogenase 803 H (313-618) U/L Total Protein (6.3-8.2) g/dL IgG 573.0 L (700.0-1600.0) mg/dL 03/25/22 03/25/22 Range/Units 07:54 07:54 RBC (4.30-5.90) m/uL MCV (80.0-100.0) fL MCH (25.0-35.0) pg MCHC (31.0-37.0) g/dL RDW (11.5-15.5) % Lymphocytes # (Manual) (1.0-4.8) k/uL PT 27.8 H (9.0-12.0) sec INR 2.8 H (<1.2) APTT 71.2 H (22.0-30.0) sec Fibrinogen 148 L (200-500) mg/dL Sodium 133 L (137-145) mmol/L Chloride 93 L (98-107) mmol/L Carbon Dioxide 32 H (22-30) mmol/L Creatinine 1.35 H (0.66-1.25) mg/dL Uric Acid 12.2 H (3.5-8.5) mg/dL Calcium 11.3 H (8.4-10.2) mg/dL Ionized Calcium Young 5.9 H (4.5-5.3) mg/dL Lactate Dehydrogenase 698 H (313-618) U/L Total Protein 6.2 L (6.3-8.2) g/dL IgG (700.0-1600.0) mg/dL Microbiology - Last 24 Hours (Table) 03/18/22 09:30 Blood Culture - Final Blood No Growth after 144 hours 03/18/22 09:49 Blood Culture - Final Blood No Growth after 144 hours Assessment and Plan Plan: CT scan - abdomen: report reviewed US - abdomen: report reviewed Assessment and Plan Assessment: 1. Left flank pain - Significant not controlled - Add fentanyl and increase Dilaudid frequency 2. Left renal mass: - Likely related to CLL, concern of lymphatic transformation, await MRI for further evaluation - Biopsy ordered if transformed patient is very treatable and options to control quality and quanitity of life exist. - Have asked for comparision of PET cscan from September 3. CLL: - Calquence on hold until further evaluation of acute hospital proble 4. KEERTHI on CKD 5. Leukocytosis: - due to CLL 6. Chronic coagulopathy: - Due to lupus antocoagulation and antiphospholipid - This is not typically risk of increased bleeding and therefore reversile will not show in the numbers. - This should not be factor with biopsy needed, will discuss with IR saturday morning. 7. Hypoxia: - RLL developing pneumonia on admission -Pulm Following - Also high anxiety, espec with upcoming MRI, premed prior Plan: Await IR plan for Biopsy Continue pain management and bowel protocol Uric acid 12.2 Rasburicase ordered Primary oncologist April Gee in favor of biopsy for likely tranformation CLL Kp hkters Transformation is of concern. Will discuss further with IR in am Vitamin K will not reverse Coagulopathy if due to antiphosopholipid
[2022-03-25] MEDS ORDERED: RASBURICASE 6 MG in SODIUM CHLORIDE 0.9% 46 ML IV ONE (22:30)
[2022-03-26] MEDS: HYDROmorphone 1 MG/ML 1 ML SYRINGE IVP PRN ×2 (04:17→08:44)
[2022-03-26 06:14] LABS: Glucose,Whole Blood 83 mg/dL (70-110)
[2022-03-26] MEDS: PANTOPRAZOLE 40 MG TABLET PO SCH ×2 (06:17→16:46)
[2022-03-26 07:43] LABS: Anisocytosis Slight; Basophils # (A) 0.1 k/uL (0-0.2); Basophils % (A) 1 %; Eosinophils # (A) 0.1 k/uL (0-0.7); Eosinophils % (A) 1 %; HCT 52.7 % (39.0-53.0); HGB 15.9 gm/dL (13.0-17.5); Hypochromasia Marked; Lymphocytes # (A) 1.1 k/uL (1.0-4.8); Lymphocytes % (A) 17 %; MCH 24.1 pg (25.0-35.0); MCHC 30.2 g/dL (31.0-37.0); MCV 79.8 fL (80.0-100.0); Mean Platelet Volume 7.7; Microcytosis Slight; Monocytes # (A) 0.5 k/uL (0-1.0); Monocytes % (A) 7 %; Neutrophils # (A) 4.8 k/uL (1.3-7.7); Neutrophils % (A) 70 %; Platelet Count 256 k/uL (150-450); RDW 18.5 % (11.5-15.5); WBC 6.8 k/uL (3.8-10.6)
[2022-03-26 07:59] LABS: Albumin 4.2 g/dL (3.5-5.0); Magnesium 1.6 mg/dL (1.6-2.3); Total Bilirubin 1.4 mg/dL (0.2-1.3); Total Protein 6.4 g/dL (6.3-8.2)
[2022-03-26 08:04] LABS: INR 2.9 (<1.2); Prothrombin Time 28.9 sec (9.0-12.0)
[2022-03-26] MEDS: SYMBICORT 80-4.5 MCG INHALER INHALATION SCH ×2 (08:24→20:06)
[2022-03-26] MEDS: IPRATROPIUM 0.5 MG/2.5 ML NEBU INHALATION SCH ×4 (08:24→20:06)
[2022-03-26] MEDS: SENNOSIDES-DOCUSATE SODIUM 1 EACH TAB PO SCH ×2 (08:41→19:53)
[2022-03-26] MEDS: FUROSEMIDE 10 MG/ML 4 ML VIAL IV SCH ×2 (08:42→19:51)
[2022-03-26] MEDS: GABAPENTIN 100 MG CAP PO SCH ×2 (08:42→19:53)
[2022-03-26] MEDS ORDERED: PHYTONADIONE 10 MG in SODIUM CHLORIDE 0.9% 50 ML IVPB STA (09:52)
[2022-03-26 11:45] LABS: Glucose,Whole Blood 103 mg/dL (70-110)
--- NOTE | 2022-03-26 12:21 | P.PN ---
Subjective Progress Note Date: 03/26/22 Principal diagnosis: Pleural effusion. On 03/25/2022 we're asked to see the patient again in regards to increasing left-sided pleural effusion with associated mid to lower lung in filtrate/atelectasis. Right midlung acute infiltrate was noted to be improving. Patient is currently on 50% Ventimask, he states his breathing is about the same, however is having some left upper abdominal discomfort. Patient has not had his biopsy of his left kidney related to increased INR. He was given vitamin K, today's INR is 2.8. Patient is afebrile, overall does not appear to be in distress. An ultrasound the chest was obtained today showing left pleural effusion pocket measuring 11.8 cm. Progress note dated 03/26/2022. The patient does have a large left-sided pleural effusion. Unfortunately, his blood is too thin, for us to be able to safely perform thoracentesis. The pat ient's PT was 28.9 with an INR 0.9. White count 6.8, hemoglobin 15.9, hematocrit 52.7, with a normal platelet count. Sodium 134, potassium 4, chlorides 91, CO2 32, BUN 25, and creatinine 1.54. Calcium is 12. Ultrasound shows a left pleural effusion pocket size of 11.8 cm. Objective - Vital Signs Vital signs: Vital Signs Temp 97.9 F 03/26/22 08:39 Pulse 92 03/26/22 12:06 Resp 12 03/26/22 12:00 BP 114/74 03/26/22 12:00 Pulse Ox 91 L 03/26/22 12:00 FiO2 50 03/26/22 08:39 Intake & Output 03/25/22 03/26/22 03/26/22 18:59 06:59 18:59 Output Total 950 450 500 Balance -950 -450 -500 Weight 56.5 kg Output: Urine 950 450 500 Other: Voiding Method Urinal Urinal Urinal - Exam No acute distress, oriented 3. Very thin and cachectic appearing. Currently on 6 L nasal O2. Saturations 91%. No conversational dyspnea or use of accessory muscles. HEENT examination is grossly unremarkable. Neck supple. Full range of motion. No adenopathy thyromegaly or neck vein distention. Cardiovascular examination reveals regular rhythm rate. S1-S2 normal. No S3 or S4. No discernible murmur noted. Heart sounds are distant. Heart rate 92 bpm. Lungs reveal some diminished breath sounds at the left lung base. There is dullness on percussion on the left side. The right lung is essentially clear. Saturations are reasonable. Abdomen soft bowel sounds are heard. No masses or tenderness. Extremities are intact. No cyanosis clubbing or edema. Skin is without rash or lesion. Neurologic examination is brief but nonfocal. - Labs CBC & Chem 7: 03/26/22 07:10 03/26/22 07:10 Labs: Abnormal Lab Results - Last 24 Hours (Table) 03/25/22 03/26/22 03/26/22 Range/Units 13:15 07:10 07:10 RBC (4.30-5.90) m/uL MCV (80.0-100.0) fL MCH (25.0-35.0) pg MCHC (31.0-37.0) g/dL RDW (11.5-15.5) % PT 28.9 H (9.0-12.0) sec INR 2.9 H (<1.2) Sodium 134 L (137-145) mmol/L Chloride 91 L (98-107) mmol/L Carbon Dioxide 32 H (22-30) mmol/L BUN 25 H (9-20) mg/dL Creatinine 1.54 H (0.66-1.25) mg/dL Calcium 12.0 H (8.4-10.2) mg/dL Total Bilirubin 1.4 H (0.2-1.3) mg/dL Lactate Dehydrogenase 714 H (313-618) U/L 03/26/22 Range/Units 07:10 RBC 6.60 H (4.30-5.90) m/uL MCV 79.8 L (80.0-100.0) fL MCH 24.1 L (25.0-35.0) pg MCHC 30.2 L (31.0-37.0) g/dL RDW 18.5 H (11.5-15.5) % PT (9.0-12.0) sec INR (<1.2) Sodium (137-145) mmol/L Chloride (98-107) mmol/L Carbon Dioxide (22-30) mmol/L BUN (9-20) mg/dL Creatinine (0.66-1.25) mg/dL Calcium (8.4-10.2) mg/dL Total Bilirubin (0.2-1.3) mg/dL Lactate Dehydrogenase (313-618) U/L Assessment and Plan Assessment: Left-sided pleural effusion, contributing to the patient's shortness of breath and hypoxemia. Left flank pain, likely due to enlarging complex mass in the left perinephric area. Chronic lymphocytic leukemia. History of COPD. Prior history of coronavirus infection, October 2020. History of chronic anemia. Coagulopathy. Hypercalcemia. Plan: Plan dated 03/26/2022. The patient's INR was 2.9, he will get some additional vitamin K. Once the INR is 1.5 or less, it would be safe to do a left-sided thoracentesis. We will continue to follow the patient and make recommendations were appropriate. His overall prognosis remains very guarded. He has severe anorexia/cachexia syndrome. Labs, x-rays, and medications are all reviewed. Prognosis is certainly guarded. Time with Patient: Less than 30
--- NOTE | 2022-03-26 12:38 | P.CONS ---
History of Present Illness - Reason for Consult Consult date: 03/26/22 Goals of care/pain management Requesting physician: Kemi Zapien - Chief Complaint abdominal pain and shortness of breath - History of Present Illness The patient is a 61-year-old male patient, known history of CLL on Calquence, chronic kidney stage III, COPD. He presented to the [facility] on 03/18/22 with abdominal pain has been going on for few weeks with progressive worsening over the past few days. Patient is nauseous but no vomiting. No hematemesis. No hematuria. Patient was taken [id number] naproxen and ibuprofen for his pain control for the past few days. He stated that he was supposed to follow-up with Dr. Faulkner from oncology last month but he canceled his appointment. Patient has a chronic exertional dyspnea, but it seems to be worsening. He is known to have COPD maintained on 3L home O2, and a combination of Advair and Spiriva on outpatient basis. He also carries a diagnosis of CLL that was followed up by Dr. Faulkner. He is known to have extensive lymphadenopathy related to his CLL. Based on the most recent oncology evaluation, there has been progression his CLL based on progression his lymphadenopathy. In the [facility], the patient was found to have a coagulation profile was abnormal, and the patient has been quite neuropathic even prior admissions. An abdominal CT of the abdomen and pelvis was done and it showed a left perinephric/retroper itoneal soft tissue density which is either a mass versus hematoma and this was not present on previous evaluation or there has been probably a subtle finding in 2020. There is also overall worsening in the lymphadenopathy about the abdomen and ascending into the mediastinum with splenomegaly. The patient also had small bilateral pleural effusions L>R. Abdominal ultrasound was then completed revealing a left perinephritic complex vascular mass, recommending further evaluation with MRI. MRI with and without contrast revealed large posterior perinephrotic mass with massive retroperitoneal adenopathy and massive splenomegaly. Oncology consulted interventional radiology to perform biopsy of renal mass. INR remains elevated, unable to complete biopsy until INR has improved. Patient given vitamin K. On 03/23/22, patient was found to be hypoxic and had increasing oxygen needs. Repeat x-ray revealed increasing left lower lobe effusion. Pulmonology re-consulted at this time for evaluation. On 03/25/22 ultrasound of chest was completed which revealed an 11.8 cm pleural effusion pocket. Patient will likely need to undergo thoracentesis. However, INR still remains elevated at this time despite receiving multiple doses of Vitamin K. Oncology and interventional radiology continue to follow. The patient will also undergo biopsy of renal mass. Both the thoracentesis and the renal biopsy is on hold until the patient's INR is less than 1.5. Review of Systems ROS unobtainable: due to mental status Past Medical History Past Medical History: Cancer, COPD Additional Past Medical History / Comment(s): Chronic lymphocytic leukemia, emphysema, plueral effusion 09/23/2020, covid 10/2020, lupus anticoagulant History of Any Multi-Drug Resistant Organisms: None Reported Past Surgical History: Appendectomy, Orthopedic Surgery Additional Past Surgical History / Comment(s): rt knee Past Anesthesia/Blood Transfusion Reactions: No Reported Reaction Past Psychological History: Anxiety, Depression Smoking Status: Former smoker Past Alcohol Use History: None Reported Past Drug Use History: None Reported - Past Family History Family Family Medical History: Hypertension Medications and Allergies Home Medications Medication Instructions Recorded Confirmed Type Albuterol Sulfate [Proair Hfa] 2 puff INHALATION RT-Q6H PRN 09/23/20 03/18/22 History Cyclobenzaprine [Flexeril] 10 mg PO HS PRN 09/23/20 03/18/22 History Fluticasone Propion/Salmeterol 1 puff INHALATION RT-BID 09/23/20 03/18/22 History [Advair 250-50 Diskus] Omeprazole 20 mg PO BID 09/23/20 03/18/22 History PARoxetine [Paxil] 20 mg PO HS 09/23/20 03/18/22 History Tiotropium [place] [Spiriva] 1 cap INHALATION RT-DAILY 09/23/20 03/18/22 History Aspirin 325 mg PO DAILY #30 tab 09/27/20 03/18/22 Rx Ascorbic Acid [Vitamin C] 1,000 mg PO DAILY 04/24/21 03/18/22 History Albuterol Nebulized [Ventolin 2.5 mg INHALATION RT-QID PRN 07/18/21 03/18/22 History Nebulized] Ferrous Sulfate [Iron (65 MG 325 mg PO DAILY 07/18/21 03/18/22 History Elemental)] Gabapentin [Neurontin] 100 mg PO BID 07/18/21 03/18/22 History [place]-3 Fatty Acids/Fish Oil [Fish 1 cap PO DAILY 07/21/21 03/18/22 History Oil 1,000 mg Softgel] Vitamin B Complex 1 cap PO DAILY 07/21/21 03/18/22 History Acalabrutinib [Calquence] 100 mg PO BID 03/18/22 03/18/22 History Furosemide [Lasix] 20 mg PO DAILY 03/18/22 03/18/22 History clonazePAM [KlonoPIN] 0.5 mg PO BID PRN 03/18/22 03/18/22 History ondansetron HCL [Zofran] 8 mg PO TID PRN 03/18/22 03/18/22 History Allergies Allergy/AdvReac Type Severity Reaction Status Date / Time Penicillins Allergy Unknown Verified 03/18/22 12:06 Childhood Physical Exam Vitals: Vital Signs Temp Pulse Pulse Resp BP Pulse Ox FiO2 03/26/22 08:44 93 L 03/26/22 08:39 97.9 F 103 H 22 124/78 92 L 50 03/26/22 08:38 90 03/26/22 08:24 88 50 03/26/22 04:00 96.8 F L 101 H 20 140/90 91 L 50 03/26/22 02:00 88 12 03/26/22 00:00 97.1 F L 93 12 119/66 92 L 50 03/25/22 20:00 97.0 F L 96 12 125/77 95 50 03/25/22 19:33 100 18 03/25/22 19:22 101 H 18 96 50 03/25/22 16:00 96.6 F L 96 20 131/80 96 03/25/22 14:00 106 H 20 03/25/22 12:04 96 03/25/22 12:00 106 H 20 139/84 97 03/25/22 11:50 96 50 Intake and Output 03/25/22 03/26/22 03/26/22 22:59 06:59 14:59 Output Total 450 450 Balance -450 -450 Output: Urine 450 450 Other: Voiding Method Urinal Urinal Urinal Weight 56.5 kg General: Patient lethargic. No acute distress. Appears cachectic and older than stated age. HEENT: Head is atraumatic, normocephalic Sclerae are clear. Pupils equal, round and reactive to light bilaterally. CV: Heart regular in rate and rhythm positive S1 and S2. No clicks, rubs or murmurs. Peripheral pulses equal. 2/4 Lungs: Diminished Left lower lobe. No wheezes rales or rhonchi. Respirations even and nonlabored. 6L NC Abdomen/GI: Soft. Bowel sounds present in all 4 quadrants. Bowel sounds normoactive. No abdominal tenderness. Musculoskeletal/ Extremities: + generalized weakness, No tenderness on muscular exam. Vascular: Radial pulses equal. 2/4. Skin: Warm and dry. No rash. Neurologic: Oriented times 2-3. Psychiatric: Flat affect Results CBC & Chem 7: 03/26/22 07:10 03/26/22 07:10 Labs: Abnormal Lab Results - Last 24 Hours (Table) 03/25/22 03/26/22 03/26/22 Range/Units 13:15 07:10 07:10 RBC (4.30-5.90) m/uL MCV (80.0-100.0) fL MCH (25.0-35.0) pg MCHC (31.0-37.0) g/dL RDW (11.5-15.5) % PT 28.9 H (9.0-12.0) sec INR 2.9 H (<1.2) Sodium 134 L (137-145) mmol/L Chloride 91 L (98-107) mmol/L Carbon Dioxide 32 H (22-30) mmol/L BUN 25 H (9-20) mg/dL Creatinine 1.54 H (0.66-1.25) mg/dL Calcium 12.0 H (8.4-10.2) mg/dL Total Bilirubin 1.4 H (0.2-1.3) mg/dL Lactate Dehydrogenase 714 H (313-618) U/L 03/26/22 Range/Units 07:10 RBC 6.60 H (4.30-5.90) m/uL MCV 79.8 L (80.0-100.0) fL MCH 24.1 L (25.0-35.0) pg MCHC 30.2 L (31.0-37.0) g/dL RDW 18.5 H (11.5-15.5) % PT (9.0-12.0) sec INR (<1.2) Sodium (137-145) mmol/L Chloride (98-107) mmol/L Carbon Dioxide (22-30) mmol/L BUN (9-20) mg/dL Creatinine (0.66-1.25) mg/dL Calcium (8.4-10.2) mg/dL Total Bilirubin (0.2-1.3) mg/dL Lactate Dehydrogenase (313-618) U/L Chest x-ray: report reviewed CT scan - abdomen: report reviewed CT scan - pelvis: report reviewed US - abdomen: report reviewed MRI - abdomen: report reviewed Assessment and Plan Assessment: Reason for consult - pain management/goals of care Social * 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 * Fatigue - Generalized weakness and fatigue * SOB - Yes - chronic dyspnea on exertion, Continue Symbicort, Albuterol, Atrovent and Lasix. On 6L NC. Thoracentesis when INR down. * Insomnia - Occasional, Continue Melatonin prn * N/V - Occasioal nausea, Continue Zofran prn * Anxiety - Yes, continue Ativan and Klonopin * Depression - No, Continue Paxil * Confusion - Yes 11/07 pain medication * Agitation - No * Hallucinations - No * Appetite/weight loss - + loss of appetite and recent weight loss, encourage PO intake, continue with regular diet and ensure TIDWM * Dysphagia - No * Constipation - No, continue Senokot--s * Incontinence - No, voids per urinal * Itch - No Summary/Goals - The patient was lethargic during examination. He was confused and unable to follow a conversation fully. He did state he still has lower left quadrant pain, but it is mild and much better today. He received Dilaudid prior to examination. Spoke with the patient's nephew, Dejon, via telephone. He states he is the patient's next of kin and would like to be updated regularly. He was told the patient's procedures are still on hold because his blood is too thin despite the vitamin K that was given. Awaiting oncology's recommendations. Dejon has never had conversations with the patient regarding his goals of care or wishes. Code status discussed at length. Dejon would like to wait for the renal biopsy and the thoracentesis before deciding on a plan of care moving f orward. He would like the patient to remain a full code. Advanced Directives - No, none on file Code Status - Full code Thank you for this consult Antonella Paz [facility] [id number] Email: [email or web address] Time with Patient: Greater than 30
[2022-03-26 13:15] LABS: APTT 104 Sec(s) (<43); APTT 1:1 Mix 69 Sec(s) (<43); DRVVT 1:1 Mix 59 Sec(s) (<44); DRVVT Confirmation Positive (Negative); Dilute Russell Viper Venom 55 Sec(s) (<44); Hexagonal Phase Neutralization Positive (Negative)
--- NOTE | 2022-03-26 14:30 | P.PN ---
Subjective Patient is seen for follow-up for acute kidney injury, associated with NSAIDs, hypercalcemia and hypovolemia. Patient is maintained on IV Lasix Hypercalcemia is secondary to underlying lymphoma Serum creatinine is at 1.5 for today. Calcium is at 12. Urine output at 1400 ML last 24 hours. Objective - Vital Signs Vital signs: Vital Signs Temp 97.9 F 03/26/22 08:39 Pulse 92 03/26/22 12:15 Resp 12 03/26/22 12:00 BP 114/74 03/26/22 12:00 Pulse Ox 91 L 03/26/22 12:00 FiO2 50 03/26/22 08:39 Intake & Output 03/25/22 03/26/22 03/26/22 18:59 06:59 18:59 Output Total 950 450 500 Balance -950 -450 -500 Weight 56.5 kg 56.5 kg Output: Urine 950 450 500 Other: Voiding Method Urinal Urinal Urinal - Exam Patient is awake, comfortable, not in any acute distress Infuse Examination of the heart S1 and S2 Examination lungs shows decreased breath sounds at the bases Abdomen is soft nontender Examination of the lower extremity shows no significant edema - Labs CBC & Chem 7: 03/26/22 07:10 03/26/22 07:10 Labs: Abnormal Lab Results - Last 24 Hours (Table) 03/23/22 03/26/22 03/26/22 Range/Units 15:07 07:10 07:10 RBC (4.30-5.90) m/uL MCV (80.0-100.0) fL MCH (25.0-35.0) pg MCHC (31.0-37.0) g/dL RDW (11.5-15.5) % PT 28.9 H (9.0-12.0) sec INR 2.9 H (<1.2) Lupus Anticoag aPTT 104 H (<43) Sec(s) Lupus Anticoag PTT Mix 69 H (<43) Sec(s) Dil Eric Viper Venom 55 H (<44) Sec(s) LA dRVVT Confirm Positive A (Negative) dRVVT 50:50 59 H (<44) Sec(s) Lupus Hexagonal Phase Positive A (Negative) Sodium 134 L (137-145) mmol/L Chloride 91 L (98-107) mmol/L Carbon Dioxide 32 H (22-30) mmol/L BUN 25 H (9-20) mg/dL Creatinine 1.54 H (0.66-1.25) mg/dL Calcium 12.0 H (8.4-10.2) mg/dL Total Bilirubin 1.4 H (0.2-1.3) mg/dL 03/26/22 Range/Units 07:10 RBC 6.60 H (4.30-5.90) m/uL MCV 79.8 L (80.0-100.0) fL MCH 24.1 L (25.0-35.0) pg MCHC 30.2 L (31.0-37.0) g/dL RDW 18.5 H (11.5-15.5) % PT (9.0-12.0) sec INR (<1.2) Lupus Anticoag aPTT (<43) Sec(s) Lupus Anticoag PTT Mix (<43) Sec(s) Dil Eric Viper Venom (<44) Sec(s) LA dRVVT Confirm (Negative) dRVVT 50:50 (<44) Sec(s) Lupus Hexagonal Phase (Negative) Sodium (137-145) mmol/L Chloride (98-107) mmol/L Carbon Dioxide (22-30) mmol/L BUN (9-20) mg/dL Creatinine (0.66-1.25) mg/dL Calcium (8.4-10.2) mg/dL Total Bilirubin (0.2-1.3) mg/dL Assessment and Plan Assessment: 1. Acute kidney injury secondary to NSAIDs, hypercalcemia. Serum creatinine had improved to 1.3 from 1.7-1 admission. To date is at 1.5. UA is benign. No evidence of obstruction on CAT scan. Started on diuretics recently 2. CK D stage III a with baseline creatinine 1.2-1.3 secondary to nephroscl erosis 3. Hypercalcemia associated with lymphoma with elevated one 25-hydroxy vitamin D level at 98 and low PTH. 4. History of CLL 5. Metabolic acidosis associated with acute kidney injury and IV fluids, status post by mouth bicarb 6. Volume overload currently on IV Lasix 7. Hyperuricemia questionable tumor lysis status post rasburicase Plan: Decrease Lasix to once a day Pamidronate IV 1 Treatment of lymphoma as per oncology Repeat labs in a.m.
[2022-03-26] MEDS: DEXTROSE 10% IN WATER 500 ML in EMPTY BAG 1 BAG IV SCH ×2 (14:54→16:51)
[2022-03-26] MEDS: SODIUM CHLORIDE 0.9% 250 ML with PAMIDRONATE 30 MG IV ONE ×4 (15:19→16:17)
--- NOTE | 2022-03-26 15:52 | P.PN ---
Subjective Progress Note Date: 03/26/22 Principal diagnosis: Concern of Renal Mass PATIENT"S COAGULOPATHY IS CHRONIC and will not change and should not place at increased risk of bleeding as it is related to antiphospholipid antibodies. Discussed with RN Discussed with Pulm Have left message for IR as a biopsy for possible transformation of CLL is needed and per their message Saturday was holding off related to coagulopathy. Objective - Vital Signs Vital signs: Vital Signs Temp 97.9 F 03/26/22 08:39 Pulse 92 03/26/22 12:15 Resp 12 03/26/22 12:00 BP 114/74 03/26/22 12:00 Pulse Ox 91 L 03/26/22 12:00 FiO2 50 03/26/22 08:39 Intake & Output 03/25/22 03/26/22 03/26/22 18:59 06:59 18:59 Output Total 950 450 500 Balance -950 -450 -500 Weight 56.5 kg Output: Urine 950 450 500 Other: Voiding Method Urinal Urinal Urinal - Labs CBC & Chem 7: 03/26/22 07:10 03/26/22 07:10 Labs: Abnormal Lab Results - Last 24 Hours (Table) 03/25/22 03/26/22 03/26/22 Range/Units 13:15 07:10 07:10 RBC (4.30-5.90) m/uL MCV (80.0-100.0) fL MCH (25.0-35.0) pg MCHC (31.0-37.0) g/dL RDW (11.5-15.5) % PT 28.9 H (9.0-12.0) sec INR 2.9 H (<1.2) Sodium 134 L (137-145) mmol/L Chloride 91 L (98-107) mmol/L Carbon Dioxide 32 H (22-30) mmol/L BUN 25 H (9-20) mg/dL Creatinine 1.54 H (0.66-1.25) mg/dL Calcium 12.0 H (8.4-10.2) mg/dL Total Bilirubin 1.4 H (0.2-1.3) mg/dL Lactate Dehydrogenase 714 H (313-618) U/L 03/26/22 Range/Units 07:10 RBC 6.60 H (4.30-5.90) m/uL MCV 79.8 L (80.0-100.0) fL MCH 24.1 L (25.0-35.0) pg MCHC 30.2 L (31.0-37.0) g/dL RDW 18.5 H (11.5-15.5) % PT (9.0-12.0) sec INR (<1.2) Sodium (137-145) mmol/L Chloride (98-107) mmol/L Carbon Dioxide (22-30) mmol/L BUN (9-20) mg/dL Creatinine (0.66-1.25) mg/dL Calcium (8.4-10.2) mg/dL Total Bilirubin (0.2-1.3) mg/dL Lactate Dehydrogenase (313-618) U/L
[2022-03-26] MEDS ORDERED: LEVOFLOXACIN 500 MG TAB PO SCH (16:00)
[2022-03-26] MEDS: LEVOFLOXACIN 250 MG TAB PO SCH (16:17)
[2022-03-26 16:41] LABS: Glucose,Whole Blood 88 mg/dL (70-110)
--- NOTE | 2022-03-26 17:30 | P.PN ---
Subjective Progress Note Date: 03/26/22 Hospital course: Patient is a very pleasant 61-year-old male with a past medical history of CLL on [place], chronic kidney stage III, and COPD. He presented to the emergency department on 03/18/22 with a chief complaint of left flank pain. Patient reported this pain began approximately a few weeks ago and significantly worsened over the past few days. He reported the pain still left flank and was accompanied by nausea. He underwent full evaluation in the emergency department. He was found to have significant leukocytosis with WBC count of 18.9 and an acute kidney injury with BUN 26, creatinine 1.72, and GFR 41. Urinalysis was negative for blood, protein, or infection. Covid PCR negative. CT abdomen and pelvis revealed a left perinephritic/retroperitoneal soft tissue suspicious for mass with overall worsening of previously known lymphadenopathy throughout the abdomen and ascending into the mediastinum with persistent splenomegaly consistent with his prior history of lymphoma along with increase and bilateral pleural effusions with left greater than right. Patient was admitted under our services with consultation to oncology, vascular surgery, nephrology, and urology. Abdominal ultrasound was completed revealing a left perinephritic complex vascular mass, recommending further evaluation with MRI. MRI with and without contrast revealed large posterior perinephrotic mass with massive retroperitoneal adenopathy and massive splenomegaly. Oncology consulted interventional radiology to perform biopsy of renal mass. INR remains elevated, unable to complete biopsy until INR has improved. Patient given vitamin K. On 03/23/22, patient was found to be hypoxic and had increasing oxygen needs. Repeat x-ray revealed increasing left lower lobe effusion. Pulmonology re-consulted at this time for evaluation. On 03/25/22 ultrasound of chest was completed which revealed an 11.8 cm pleural effusion pocket. Patient will likely need to u ndergo thoracentesis. However INR remains elevated at this time and patient given additional dose of vitamin K. Physical exam: Pt seen and fully evaluated at bedside this morning, he was slightly sedated secondary to recent administration of Dilaudid but sitting up and awake in bed and did respond reporting that his pain is better controlled. Oxygen needs have improved and patient is down to 6 L O2 via nasal cannula at time of assessment with SpO2 of 93% with respirations even, regular, and unlabored at this time. Morning labs revealed continued elevation of INR 2.9 despite a total of 3 doses of vitamin K. INR needs to be below 1.5 for cardiology to be able to perform thoracentesis in interventional radiology to be able to perform biopsy of mass. Pulmonary at bedside placing order for additional dose of vitamin K at this time. Vital signs reviewed and stable. General: Nontoxic, no distress and appears stated age. Thin, malnourished. Derm: Skin warm and dry, normal coloration for ethnicity. Head: Atraumatic, normocephalic and symmetric. Eyes: EOMs intact, no lid lag, and anicteric sclera Mouth: no lip lesions, mucus membranes moist Cardiovascular: regular rate and rhythm with normal S1S2, no murmur, positive posterior tibial pulses bilaterally, and cap refill < 2 seconds. Lungs: Respirations even, regular, and unlabored on 15 L O2 via venturi mask with FiO2 of 50%. Lungs diminished no rhonchi, rales, wheezes or crackles present, and no accessory muscle usage. Abdominal: soft, diffuse left-sided abdominal tenderness and left flank pain with guarding of left flank. Bowel sounds 4 quadrants. Ext: ROM intact. No gross muscle atrophy, no edema, no contractures Neuro: Speech clear, face symmetrical and CN II-XII grossly intact with no noted focal neuro deficits Psych: Alert and oriented to person, place, time, and situation. Appropriate and pleasant affect. Assessment and Plan of Care: Left flank pain Left perinephric complex mass -Computed tomography scan of the abdomen without contrast showed complex mass in the left perinephric area. -Abdominal ultrasound confirmed left. Nephritic complex vascular mass -MRI with and without contrast revealed large posterior perinephrotic mass with massive retroperitoneal adenopathy and massive splenomegaly. -Pain control with IV Dilaudid -Hematology/oncology following, appreciate recommendations -Nephrology following, appreciate recommendations -Urology following and awaiting further recommendations. Acute respiratory failure with hypoxia secondary to increasing left pleural effusion -Ultrasound chest completed revealing an 11.8 cm pleural effusion pocket -Chest x-ray revealing increasing left lower lobe opacity reflective of effusion and an additional infiltrate in right midlung. -Lasix 40 mg daily with strict monitoring of I's and O's. -Pulmonology following, planning for possible thoracentesis once INR has improved. Chronic coagulopathy Chronic anemia of chronic disease Lupus anticogulant -Likely secondary to CLL, hematology/oncology following. -Patient given vitamin K and hopes to obtain improvement of INR so renal biopsy and thoracentesis can be completed. Chronic lymphocytic leukemia Splenomegaly with lymphadenopathy throughout abdomen and ascending into mediastinum -Patient on [place] -Hematology/oncology following, appreciate recommendations. Acute kidney injury on stage III chronic kidney disease , resolved -Improving with IV fluid hydration. -Nephrology consulted started patient on bicarb. -Continue holding Lasix. -Avoid nephrotoxic agents. Mild Hypercalcemia -Improved with IV fluid hydration with current calcium of 11.3 with ionized calcium of 5.9. Hypomagnesemia, replaced COPD without acute exacerbation -Continue Symbicort 2 puffs twice daily along with PRN nebulizer treatments for shortness of breath and/or wheezing. CODE STATUS: Full code DVT prophylaxis: SCDs Discussed with: Patient, pulmonary and RN Anticipated discharge date: Clinical course to determine Anticipated discharge place: Home A total of 37 minutes was spent on the care of this complex patient more than 50% of the time was spent in counseling and care coordination. Objective - Vital Signs Vital signs: Vital Signs Temp 96.8 F L 03/26/22 04:00 Pulse 101 H 03/26/22 04:00 Resp 20 03/26/22 04:00 BP 140/90 03/26/22 04:00 Pulse Ox 91 L 03/26/22 04:00 FiO2 50 03/26/22 04:00 Intake & Output 03/25/22 03/26/22 03/26/22 18:59 06:59 18:59 Output Total 950 450 Balance -950 -450 Weight 56.5 kg Output: Urine 950 450 Other: Voiding Method Urinal Urinal - Labs CBC & Chem 7: 03/26/22 07:10 03/26/22 07:10 Labs: Abnormal Lab Results - Last 24 Hours (Table) 03/25/22 03/25/22 03/25/22 Range/Units 07:54 07:54 07:54 RBC 6.22 H (4.30-5.90) m/uL MCV 79.8 L (80.0-100.0) fL MCH 24.1 L (25.0-35.0) pg MCHC 30.2 L (31.0-37.0) g/dL RDW 18.3 H (11.5-15.5) % Lymphocytes # (Manual) 0.31 L (1.0-4.8) k/uL PT 27.8 H (9.0-12.0) sec INR 2.8 H (<1.2) APTT 71.2 H (22.0-30.0) sec Fibrinogen 148 L (200-500) mg/dL Sodium 133 L (137-145) mmol/L Chloride 93 L (98-107) mmol/L Carbon Dioxide 32 H (22-30) mmol/L BUN (9-20) mg/dL Creatinine 1.35 H (0.66-1.25) mg/dL Uric Acid 12.2 H (3.5-8.5) mg/dL Calcium 11.3 H (8.4-10.2) mg/dL Ionized Calcium Young 5.9 H (4.5-5.3) mg/dL Total Bilirubin (0.2-1.3) mg/dL Lactate Dehydrogenase 698 H (313-618) U/L Total Protein 6.2 L (6.3-8.2) g/dL 03/25/22 03/26/22 03/26/22 Range/Units 13:15 07:10 07:10 RBC (4.30-5.90) m/uL MCV (80.0-100.0) fL MCH (25.0-35.0) pg MCHC (31.0-37.0) g/dL RDW (11.5-15.5) % Lymphocytes # (Manual) (1.0-4.8) k/uL PT 28.9 H (9.0-12.0) sec INR 2.9 H (<1.2) APTT (22.0-30.0) sec Fibrinogen (200-500) mg/dL Sodium 134 L (137-145) mmol/L Chloride 91 L (98-107) mmol/L Carbon Dioxide 32 H (22-30) mmol/L BUN 25 H (9-20) mg/dL Creatinine 1.54 H (0.66-1.25) mg/dL Uric Acid (3.5-8.5) mg/dL Calcium 12.0 H (8.4-10.2) mg/dL Ionized Calcium Young (4.5-5.3) mg/dL Total Bilirubin 1.4 H (0.2-1.3) mg/dL Lactate Dehydrogenase 714 H (313-618) U/L Total Protein (6.3-8.2) g/dL 03/26/22 Range/Units 07:10 RBC 6.60 H (4.30-5.90) m/uL MCV 79.8 L (80.0-100.0) fL MCH 24.1 L (25.0-35.0) pg MCHC 30.2 L (31.0-37.0) g/dL RDW 18.5 H (11.5-15.5) % Lymphocytes # (Manual) (1.0-4.8) k/uL PT (9.0-12.0) sec INR (<1.2) APTT (22.0-30.0) sec Fibrinogen (200-500) mg/dL Sodium (137-145) mmol/L Chloride (98-107) mmol/L Carbon Dioxide (22-30) mmol/L BUN (9-20) mg/dL Creatinine (0.66-1.25) mg/dL Uric Acid (3.5-8.5) mg/dL Calcium (8.4-10.2) mg/dL Ionized Calcium Young (4.5-5.3) mg/dL Total Bilirubin (0.2-1.3) mg/dL Lactate Dehydrogenase (313-618) U/L Total Protein (6.3-8.2) g/dL
[2022-03-26] MEDS: ACETAMINOPHEN TAB 325 MG TAB PO PRN (19:51)
[2022-03-26] MEDS: PARoxetine 20 MG TAB PO SCH (19:53)
[2022-03-26 20:03] LABS: Glucose,Whole Blood 100 mg/dL (70-110)
[2022-03-26] MEDS: ALBUTEROL NEBULIZED 2.5 MG/3 ML INHALATION PRN (20:06)
[2022-03-27] MEDS: HYDROmorphone 1 MG/ML 1 ML SYRINGE IVP PRN ×7 (03:43→22:06)
[2022-03-27 06:05] LABS: Glucose,Whole Blood 90 mg/dL (70-110)
[2022-03-27] MEDS: PANTOPRAZOLE 40 MG TABLET PO SCH ×2 (06:16→17:55)
[2022-03-27 08:06] LABS: Anisocytosis Slight; HCT 51.5 % (39.0-53.0); HGB 15.8 gm/dL (13.0-17.5); Hypochromasia Marked; MCH 24.3 pg (25.0-35.0); MCHC 30.6 g/dL (31.0-37.0); MCV 79.3 fL (80.0-100.0); Mean Platelet Volume 7.6; Microcytosis Slight; Platelet Count 256 k/uL (150-450); RBC 6.49 m/uL (4.30-5.90); RDW 18.5 % (11.5-15.5); WBC 6.4 k/uL (3.8-10.6)
[2022-03-27 08:18] LABS: INR 3.3 (<1.2); Prothrombin Time 32.5 sec (9.0-12.0)
[2022-03-27 08:26] LABS: Albumin 4.1 g/dL (3.5-5.0); Potassium 3.8 mmol/L (3.5-5.1); Total Bilirubin 1.2 mg/dL (0.2-1.3); Total Protein 6.1 g/dL (6.3-8.2)
[2022-03-27] MEDS: SYMBICORT 80-4.5 MCG INHALER INHALATION SCH ×2 (08:34→20:12)
[2022-03-27] MEDS: IPRATROPIUM 0.5 MG/2.5 ML NEBU INHALATION SCH ×4 (08:34→20:11)
[2022-03-27 08:44] LABS: Calcium 13.2 mg/dL (8.4-10.2)
[2022-03-27] MEDS: SENNOSIDES-DOCUSATE SODIUM 1 EACH TAB PO SCH ×2 (08:51→20:13)
[2022-03-27] MEDS: GABAPENTIN 100 MG CAP PO SCH ×2 (08:51→20:13)
[2022-03-27] MEDS: FUROSEMIDE 10 MG/ML 4 ML VIAL IV SCH (08:51)
[2022-03-27 09:15] LABS: Cardiolipin Ab IgG Interp NEGATIVE (NEGATIVE); Cardiolipin IgA Antibody <2.0 U/mL
[2022-03-27 11:27] LABS: Glucose,Whole Blood 106 mg/dL (70-110)
--- NOTE | 2022-03-27 11:59 | P.PN ---
Subjective Progress Note Date: 03/27/22 Principal diagnosis: Pleural effusion. On 03/25/2022 we're asked to see the patient again in regards to increasing left-sided pleural effusion with associated mid to lower lung in filtrate/atelectasis. Right midlung acute infiltrate was noted to be improving. Patient is currently on 50% Ventimask, he states his breathing is about the same, however is having some left upper abdominal discomfort. Patient has not had his biopsy of his left kidney related to increased INR. He was given vitamin K, today's INR is 2.8. Patient is afebrile, overall does not appear to be in distress. An ultrasound the chest was obtained today showing left pleural effusion pocket measuring 11.8 cm. Progress note dated 03/26/2022. The patient does have a large left-sided pleural effusion. Unfortunately, his blood is too thin, for us to be able to safely perform thoracentesis. The pat ient's PT was 28.9 with an INR 0.9. White count 6.8, hemoglobin 15.9, hematocrit 52.7, with a normal platelet count. Sodium 134, potassium 4, chlorides 91, CO2 32, BUN 25, and creatinine 1.54. Calcium is 12. Ultrasound shows a left pleural effusion pocket size of 11.8 cm. Progress note dated 03/27/2022. 61-year-old male seen in room 375. The patient is currently on 9 L nasal cannula, high flow. Is getting saline at 20 mL an hour. Yesterday's INR was 2.9. Today it is 3.3. We see that there has been a palliative care consultation, which we think is very appropriate. The patient likely not able to tolerate a thoracentesis, though it is not safe to do it now given his coagulopathy. White count 6.4, and 15.8, hematocrit 51.5, platelet count 256,000. PTT is 32.5 with an INR 3.3. Sodium 134, potassium 3.8, chlorides 92, CO2 30, BUN 38, and creatinine 1.70. Calcium is 13.2. Chest x-ray, from March 24, and chest ultrasound from March 25, have been reviewed. Objective - Vital Signs Vital signs: Vital Signs Temp 97.7 F 03/27/22 03:37 Pulse 90 03/27/22 08:43 Resp 20 03/27/22 03:37 BP 152/86 03/27/22 03:37 Pulse Ox 94 L 03/27/22 03:37 FiO2 50 03/26/22 08:39 Intake & Output 03/26/22 03/27/22 03/27/22 18:59 06:59 18:59 Intake Total 250 Output Total 500 625 Balance -500 -375 Weight 56.5 kg 57.5 kg Intake: Oral 250 Output: Urine 500 625 Other: Voiding Method Urinal Urinal # Voids 1 - Exam No acute distress, oriented 3. Very thin and cachectic appearing. Currently on 9 L nasal O2. Saturations 92 %. No conversational dyspnea or use of accessory muscles. HEENT examination is grossly unremarkable. Neck supple. Full range of motion. No adenopathy thyromegaly or neck vein distention. Cardiovascular examination reveals regular rhythm rate. S1-S2 normal. No S3 or S4. No discernible murmur noted. Heart sounds are distant. Heart rate 90 bpm. Lungs reveal some diminished breath sounds at the left lung base. There is dullness on percussion on the left side. The right lung is essentially clear. Saturations are reasonable. Abdomen soft bowel sounds are heard. No masses or tenderness. Extremities are intact. No cyanosis clubbing or edema. Skin is without rash or lesion. Neurologic examination is brief but nonfocal. - Labs CBC & Chem 7: 03/27/22 07:36 03/27/22 07:36 Labs: Abnormal Lab Results - Last 24 Hours (Table) 03/23/22 03/23/22 03/27/22 Range/Units 15:07 15:07 07:36 RBC (4.30-5.90) m/uL MCV (80.0-100.0) fL MCH (25.0-35.0) pg MCHC (31.0-37.0) g/dL RDW (11.5-15.5) % PT 32.5 H (9.0-12.0) sec INR 3.3 H (<1.2) Lupus Anticoag aPTT 104 H (<43) Sec(s) Lupus Anticoag PTT Mix 69 H (<43) Sec(s) Dil Eric Viper Venom 55 H (<44) Sec(s) LA dRVVT Confirm Positive A (Negative) dRVVT 50:50 59 H (<44) Sec(s) Lupus Hexagonal Phase Positive A (Negative) Sodium (137-145) mmol/L Chloride (98-107) mmol/L BUN (9-20) mg/dL Creatinine (0.66-1.25) mg/dL Calcium (8.4-10.2) mg/dL Total Protein (6.3-8.2) g/dL Cardiolipin IgM Interp A (NEGATIVE) 03/27/22 03/27/22 Range/Units 07:36 07:36 RBC 6.49 H (4.30-5.90) m/uL MCV 79.3 L (80.0-100.0) fL MCH 24.3 L (25.0-35.0) pg MCHC 30.6 L (31.0-37.0) g/dL RDW 18.5 H (11.5-15.5) % PT (9.0-12.0) sec INR (<1.2) Lupus Anticoag aPTT (<43) Sec(s) Lupus Anticoag PTT Mix (<43) Sec(s) Dil Eric Viper Venom (<44) Sec(s) LA dRVVT Confirm (Negative) dRVVT 50:50 (<44) Sec(s) Lupus Hexagonal Phase (Negative) Sodium 134 L (137-145) mmol/L Chloride 92 L (98-107) mmol/L BUN 38 H (9-20) mg/dL Creatinine 1.70 H (0.66-1.25) mg/dL Calcium 13.2 H* (8.4-10.2) mg/dL Total Protein 6.1 L (6.3-8.2) g/dL Cardiolipin IgM Interp (NEGATIVE) Assessment and Plan Assessment: Left-sided pleural effusion, contributing to the patient's shortness of breath and hypoxemia. Left flank pain, likely due to enlarging complex mass in the left perinephric area. Chronic lymphocytic leukemia. History of COPD. Prior history of coronavirus infection, October 2020. History of chronic anemia. Coagulopathy. Hypercalcemia. Plan: Plan dated 03/26/2022. The patient's INR was 2.9, he will get some additional vitamin K. Once the INR is 1.5 or less, it would be safe to do a left-sided thoracentesis. We will continue to follow the patient and make recommendations were appropriate. His overall prognosis remains very guarded. He has severe anorexia/cachexia syndrome. Labs, x-rays, and medications are all reviewed. Prognosis is certainly guarded. Plan dated 03/27/2022. Despite vitamin K, the patient's INR actually went from 2.9 up to 3.3. It is unsafe in my opinion, to do a thoracentesis at this time. His overall prognosis is poor. He is on 9 L high flow nasal oxygen. I don't know that even if he did not have a coagulopathy, that he would be able to tolerate a thoracentesis. Lab s, x-rays, and medications are reviewed. Prognosis is certainly poor. We noticed, that the primary service to place a palliative care consultation, which we think is very appropriate in this patient. Time with Patient: Less than 30
[2022-03-27] MEDS: polyethylene glycoL 3350 17 GM POWD.PACK PO SCH (12:09)
[2022-03-27] MEDS: MEGESTROL 400 MG/10 ML CUP PO SCH (12:09)
[2022-03-27] MEDS: HYDROcodone/APAP 5-325MG 1 EACH TAB PO SCH ×3 (12:10→23:38)
--- NOTE | 2022-03-27 13:53 | P.PN ---
Subjective Patient is seen for follow-up for acute kidney injury, associated with NSAIDs, hypercalcemia and hypovolemia. Patient is maintained on IV Lasix Hypercalcemia is secondary to underlying lymphoma Serum creatinine increased to 1.7 today and calcium is up to 13.2. Patient received a dose of pamidronate yesterday. Urine output 1.1 L for 24 hours This morning patient is sleeping but arousable. Yesterday he had received Narcan for unresponsiveness associated with pain medications. Objective - Vital Signs Vital signs: Vital Signs Temp 97.9 F 03/27/22 08:00 Pulse 94 03/27/22 12:25 Resp 18 03/27/22 08:00 BP 158/77 03/27/22 08:00 Pulse Ox 92 L 03/27/22 08:00 FiO2 50 03/26/22 08:39 Intake & Output 03/26/22 03/27/22 03/27/22 18:59 06:59 18:59 Intake Total 250 Output Total 500 625 Balance -500 -375 Weight 56.5 kg 57.5 kg Intake: Oral 250 Output: Urine 500 625 Other: Voiding Method Urinal Urinal Urinal # Voids 1 - Exam Patient is lethargic, arousable, comfortable, not in any acute distress Infuse Examination of the heart S1 and S2 Examination lungs shows decreased breath sounds at the bases Abdomen is soft nontender Examination of the lower extremity shows no significant edema - Labs CBC & Chem 7: 03/27/22 07:36 03/27/22 07:36 Labs: Abnormal Lab Results - Last 24 Hours (Table) 03/23/22 03/27/22 03/27/22 Range/Units 15:07 07:36 07:36 RBC 6.49 H (4.30-5.90) m/uL MCV 79.3 L (80.0-100.0) fL MCH 24.3 L (25.0-35.0) pg MCHC 30.6 L (31.0-37.0) g/dL RDW 18.5 H (11.5-15.5) % PT 32.5 H (9.0-12.0) sec INR 3.3 H (<1.2) Sodium (137-145) mmol/L Chloride (98-107) mmol/L BUN (9-20) mg/dL Creatinine (0.66-1.25) mg/dL Calcium (8.4-10.2) mg/dL Total Protein (6.3-8.2) g/dL Cardiolipin IgM Interp A (NEGATIVE) 03/27/22 Range/Units 07:36 RBC (4.30-5.90) m/uL MCV (80.0-100.0) fL MCH (25.0-35.0) pg MCHC (31.0-37.0) g/dL RDW (11.5-15.5) % PT (9.0-12.0) sec INR (<1.2) Sodium 134 L (137-145) mmol/L Chloride 92 L (98-107) mmol/L BUN 38 H (9-20) mg/dL Creatinine 1.70 H (0.66-1.25) mg/dL Calcium 13.2 H* (8.4-10.2) mg/dL Total Protein 6.1 L (6.3-8.2) g/dL Cardiolipin IgM Interp (NEGATIVE) Assessment and Plan Assessment: 1. Acute kidney injury secondary to NSAIDs, hypercalcemia. Serum creatinine had improved to 1.3 from 1.7 on admission, but increased again secondary to worsening hypercalcemia and diuresis. UA is benign. No evidence of obstruction on CAT scan. Started on diuretics recently 2. CK D stage III a with baseline creatinine 1.2-1.3 secondary to nephrosclerosis 3. Hypercalcemia associated with lymphoma with elevated one 25-hydroxy vitamin D level at 98 and low PTH. 4. History of CLL 5. Metabolic acidosis associated with acute kidney injury and IV fluids, status post by mouth bicarb 6. Volume overload currently on IV Lasix, improved 7. Hyperuricemia questionable tumor lysis status post rasburicase 8. Left perinephric/retroperitoneal soft tissue mass likely related to the lymphoma with worsening lymphadenopathy noted on the CT Plan: Repeat dose of pamidronate Repeat chest x-ray Decrease IV Lasix Overall prognosis is guarded.
--- NOTE | 2022-03-27 14:10 | P.PN ---
Subjective Progress Note Date: 03/27/22 Principal diagnosis: Renal Mas The patient is a 61-year-old male patient, known history of CLL on [place], chronic kidney stage III, COPD. He presented to the [facility] on 03/18/22 with abdominal pain has been going on for few weeks with progressive worsening over the past few days. Patient is nauseous but no vomiting. No hematemesis. No hematuria. Patient was taken [id number]-nwhfcal naproxen and ibuprofen for his pain control for the past few days. He stated that he was supposed to follow-up with Dr. Faulkner from oncology last month but he canceled his appointment. Patient has a chronic exertional dyspnea, but it seems to be worsening. He is known to have COPD maintained on 3L home O2, and a combination of Advair and Spiriva on outpatient basis. He also carries a diagnosis of CLL that was followed up by Dr. Faulkner. He is known to have extensive lymphadenopathy related to his CLL. Based on the most recent oncology evaluation, there has been progression his CLL based on progression his lymphadenopathy. In the [facility], the patient was found to have a coagulation profile was abnormal, and the patient has been quite neuropathic even prior admissions. An abdominal CT of the abdomen and pelvis was done and it showed a left perinephric/retroperitoneal soft tissue density which is either a mass versus hematoma and this was not present on previous evaluation or there has been probably a subtle finding in 2020. There is also overall worsening in the lymphadenopathy about the abdomen and ascending into the mediastinum with splenomegaly. The patient also had small bilateral pleural effusions L>R. Abdominal ultrasound was then completed revealing a left perinephritic complex vascular mass, recommending further evaluation with MRI. MRI with and without c ontrast revealed large posterior perinephrotic mass with massive retroperitoneal adenopathy and massive splenomegaly. Oncology consulted interventional radiology to perform biopsy of renal mass. IN R remains elevated, unable to complete biopsy until INR has improved. Patient given vitamin K. On 03/23/22, patient was found to be hypoxic and had increasing oxygen needs. Repeat x-ray revealed increasing left lower lobe effusion. Pulmonology re-consulted at this time for evaluation. On 03/25/22 ultrasound of chest was completed which revealed an 11.8 cm pleural effusion pocket. Patient will likely need to undergo thoracentesis. However, INR still remains elevated at this time despite receiving multiple doses of Vitamin K. Oncology and interventional radiology continue to follow. The patient will also undergo biopsy of renal mass. Both the thoracentesis and the renal biopsy is on hold until the patient's INR is less than 1.5. 03/26 The patient was lethargic during examination. He was confused and unable to follow a conversation fully. He did state he still has lower left quadrant pain, but it is mild and much better today. He received Dilaudid prior to examination. Spoke with the patient's nephew, Dejon, via telephone. He states he is the patient's next of kin and would like to be updated regularly. He was told the patient's procedures are still on hold because his blood is too thin despite the vitamin K that was given. Awaiting oncology's recommendations. Dejon has never had conversations with the patient regarding his goals of care or wishes. Code status discussed at length. Dejon would like to wait for the renal biopsy and the thoracentesis before deciding on a plan of care moving forward. He would like the patient to remain a full code. Objective - Vital Signs Vital signs: Vital Signs Temp 97.7 F 03/27/22 03:37 Pulse 90 03/27/22 08:43 Resp 20 03/27/22 03:37 BP 152/86 03/27/22 03:37 Pulse Ox 94 L 03/27/22 03:37 FiO2 50 03/26/22 08:39 Intake & Output 03/26/22 03/27/22 03/27/22 18:59 06:59 18:59 Intake Total 250 Output Total 500 625 Balance -500 -375 Weight 56.5 kg 57.5 kg Intake: Oral 250 Output: Urine 500 625 Other: Voiding Method Urinal Urinal # Voids 1 - Exam General: Patient lethargic. No acute distress. Appears cachectic and older than stated age. HEENT: Head is atraumatic, normocephalic Sclerae are clear. Pupils equal, round and reactive to light bilaterally. CV: Heart regular in rate and rhythm positive S1 and S2. No clicks, rubs or m urmurs. Peripheral pulses equal. 2/4 Lungs: Diminished Left lower lobe. No wheezes rales or rhonchi. Respirations even and slightlyy llabored. 9L NC Abdomen/GI: Soft. Bowel sounds present in all 4 quadrants. Bowel sounds normoactive. + abdominal tenderness. Musculoskeletal/ Extremities: + generalized weakness Vascular: Radial pulses equal. 2/4. Skin: Warm and dry. No rash. Neurologic: Oriented times 2-3, confused and mumbles words. Psychiatric: Flat affect - Labs CBC & Chem 7: 03/27/22 07:36 03/27/22 07:36 Labs: Abnormal Lab Results - Last 24 Hours (Table) 03/23/22 03/27/22 03/27/22 Range/Units 15:07 07:36 07:36 RBC 6.49 H (4.30-5.90) m/uL MCV 79.3 L (80.0-100.0) fL MCH 24.3 L (25.0-35.0) pg MCHC 30.6 L (31.0-37.0) g/dL RDW 18.5 H (11.5-15.5) % PT 32.5 H (9.0-12.0) sec INR 3.3 H (<1.2) Lupus Anticoag aPTT 104 H (<43) Sec(s) Lupus Anticoag PTT Mix 69 H (<43) Sec(s) Dil Eric Viper Venom 55 H (<44) Sec(s) LA dRVVT Confirm Positive A (Negative) dRVVT 50:50 59 H (<44) Sec(s) Lupus Hexagonal Phase Positive A (Negative) Sodium (137-145) mmol/L Chloride (98-107) mmol/L BUN (9-20) mg/dL Creatinine (0.66-1.25) mg/dL Calcium (8.4-10.2) mg/dL Total Protein (6.3-8.2) g/dL 03/27/22 Range/Units 07:36 RBC (4.30-5.90) m/uL MCV (80.0-100.0) fL MCH (25.0-35.0) pg MCHC (31.0-37.0) g/dL RDW (11.5-15.5) % PT (9.0-12.0) sec INR (<1.2) Lupus Anticoag aPTT (<43) Sec(s) Lupus Anticoag PTT Mix (<43) Sec(s) Dil Eric Viper Venom (<44) Sec(s) LA dRVVT Confirm (Negative) dRVVT 50:50 (<44) Sec(s) Lupus Hexagonal Phase (Negative) Sodium 134 L (137-145) mmol/L Chloride 92 L (98-107) mmol/L BUN 38 H (9-20) mg/dL Creatinine 1.70 H (0.66-1.25) mg/dL Calcium 13.2 H* (8.4-10.2) mg/dL Total Protein 6.1 L (6.3-8.2) g/dL Assessment and Plan Assessment: Symptoms * Pain - 6/10 LLQ pain. continue Tyleonl, Neurotin, Flexeril, and Dilaudid. [place] added ATC. Fentanyl patch discontinued * Fatigue - Generalized weakness and fatigue * SOB - Yes - chronic dyspnea on exertion, Continue Symbicort, Albuterol, Atrovent and Lasix. On 9L NC. Thoracentesis when INR below 1.5. * Insomnia - Occasional, Continue Melatonin prn * N/V - Occasioal nausea, Continue Zofran prn * Anxiety - Yes, continue Ativan and Klonopin * Depression - No, Continue Paxil * Confusion - Yes 11/07 pain medication * Agitation - No * Hallucinations - No * Appetite/weight loss - + loss of appetite and recent weight loss, encourage PO intake, continue with regular diet and ensure TIDWM and magic cups. Megace QD added. 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 Miralax daily and Dulcolax suppository prn added. Continue Senokot--s * Incontinence - No, voids per urinal * Itch - No Plan: Summary/Goals - The patient is lying in bed and appears uncomfortable. He c/o LLQ pain. No family present at time of examination. Patient still slightly co nfused and has garbled speech.The patient's Fentanyl patch was discontinued yesterday. Per RN, the patient was barely responsive and Narcan had to be administered. Low dose [place] ATC was added to pain regimen in attempt to keep pain more controlled. Dilaudid IV still available prn for severe pain. Discussed pain medication plan with RN, requested she call with any issues. Patient will likely need anther adjustment in pain medication. The patient denies any nausea. He states he has not been eating much due to a loss of appetite. Wanda added. The patient is currently on 9L NC with slightly labored breathing. SPO2 94%. Awaiting pulmonary to determine if patient will be able to have a thoracentesis today, INR 3.3 today despite receiving vitamin K. 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 Oncology has left message for IR as a biopsy for possible transform ation of CLL is needed and per their message Saturday was holding off related to coagulopathy. Returned to patient's bedside to reassess pain. The patient woke up easily. He was a little confused as to where he was and what was going on. He reoriented easily. He stated his pain was "ok". The patient's nephew was present. Education was provided regarding the underlying conditions and poor prognosis. Code status was also addressed again. The patient's nephew is unsure about what to do. He would like to take some time to talk with the patient and his family. The patient is to remain a full code for now. The pulmonary service feels given the patients high INR, a thoracentesis would not be safe at this time. They do not feel like he would tolerate the procedure well. A lymph node biopsy is scheduled to be done later this afternoon. Advanced Directives - No, none on file Code Status - Full code Thank you for this consult Antonella Paz [facility] [id number] Email: [email or web address] Time with Patient: Less than 30
[2022-03-27] MEDS ORDERED: SODIUM CHLORIDE 0.9% 250 ML with PAMIDRONATE 30 MG IV ONE ×2 (15:00)
[2022-03-27] MEDS ORDERED: PHYTONADIONE ORAL 5 MG/5 ML ORAL.SYRG PO STA (16:01)
--- NOTE | 2022-03-27 16:20 | P.PN ---
Progress Note - Text Progress Note Date: 03/27/22 Mr. Cochran was seen and examined. His nephew is at bedside. Case discussed with nephrology and RN. He is still endorsing pain on the left side. He is on high flow nasal cannula and 9 L. Vitals: Reviewed General: Frail-appearing cachectic gentleman HEENT: neck supple Cardiovascular: RRR, S1-S2 Lungs: Breath sounds equal. Diminished, more so at the bases on the left side Abdomen: Soft, left sided tenderness , without guarding or rebound Extremities: No lower extremity edema Lab data reviewed Assessment and plan 1. Left flank pain secondary to left perinephritic complex mass Computed tomography scan of abdomen with complex mass in left perinephric area, this was confirmed on MRI revealing a large posterior nephritic mass with massive retroperitoneal adenopathy and massive splenomegaly. Supportive measures with pain control. It appears he has gone on for biopsy today. Supportive measures with pain control. 2. Left-sided pleural effusion Likely secondary to his malignancy. INR is too elevated for thoracentesis at this time. Repeat chest x-ray today. 3. Acute hypoxic respiratory failure Secondary to #2. He is on high flow nasal cannula. We will wean down as tolerated. 4. CLL He does have massive splenomegaly with retroperitoneal lymphadenopathy. It appears his malignancy has advanced. He appears very debilitated, frail and cachectic. He would be a good hospice candidate. Palliative care to evaluate. 5. Elevated INR Likely secondary to his malignancy. INR uptrending, give vitamin K today in case he does undergo thoracentesis. 6. KEERTHI on CKD Likely secondary to hypovolemia from hypercalcemia. Creatinine 1.7 today. Discussed with nephrology, we will restart normal saline. Lasix to facilitate calcium excretion. Avoid nephrotoxins. BMP next am. 7. Hypercalcemia Moderate, and related to his malignancy. Received bisphosphonate today. Restart IV fluids. Continue Lasix. Telemetry monitoring. 8. COPD Not in exacerbation. Continue with scheduled and as needed breathing treatments. Disposition: Unclear at this time. Poor prognosis overall. Goals of care to be addressed with family. CODE STATUS: Full code DVT prophylaxis: SCDs as INR elevated
[2022-03-27 16:28] LABS: Glucose,Whole Blood 94 mg/dL (70-110)
--- NOTE | 2022-03-27 16:36 | US ---
EXAMINATION TYPE: US biopsy abd/retroperi mass DATE OF EXAM: 03/27/2022 HISTORY: Retroperitoneal mass on the left. FINDINGS: Maximal barrier technique was utilized. Hand hygiene achieved with soap and water and alco hol-based hand rub. The skin overlying a suitable path to the patient's mass in the left retroperiton eum was localized with ultrasound and the overlying skin prepped and draped. Ultrasound was utilized with sterile technique. Lidocaine was used for local anesthesia. A skin parker was made with a scalp el. A 20-gauge needle was advanced under direct ultrasound guidance and core specimen obtained of th e mass. 2 passes were made. Specimen submitted in formalin to Pathology. Following the procedure, h emostasis achieved and the patient is discharged in stable condition without complication. IMPRESSION:STATUS POST ULTRASOUND GUIDED CORE BIOPSY OF left retroperitoneal MASS, PATHOLOGY IS PENDI NG. THIS PROCEDURE IS PERFORMED BY THE UNDERSIGNED.
--- NOTE | 2022-03-27 16:43 | XR ---
EXAMINATION TYPE: XR chest 1V portable DATE OF EXAM: 03/27/2022 4:21 PM COMPARISON: Chest radiographs from 03/24/2022 TECHNIQUE: XR chest 1V portable Portable AP radiograph of the chest. CLINICAL INDICATION:Male, 61 years old with history of hypoxia; FINDINGS: Lungs/Pleura: No evidence of focal consolidation or pneumothorax. Blunting of the costophrenic angles is present. Pulmonary vascularity: Pulmonary vascular congestion. Heart/mediastinum: Cardiomediastinal silhouette is enlarged and stable. Musculoskeletal: No acute osseous pathology. IMPRESSION: Cardiomegaly, pulmonary vascular congestion and bilateral pleural effusions. Correlate with BNP for c ongestive heart failure.
[2022-03-27] MEDS: LEVOFLOXACIN 250 MG TAB PO SCH (16:45)
[2022-03-27] MEDS: SODIUM CHLORIDE 0.9% 1,000 ML IV SCH (16:47)
--- NOTE | 2022-03-27 16:48 | P.PCN ---
Date of Procedure: 03/27/22 Preoperative Diagnosis: retroperitoneal mass Postoperative Diagnosis: same Procedure(s) Performed: u/s guide core biopsy retroperitoneal mass Anesthesia: local Estimated Blood Loss (ml): 2 Pathology: other (2 20 ga cores in formalin to path) Condition: stable Disposition: no change Description of Procedure: u/s guide left sided posterior biopsy
[2022-03-27] MEDS: DEXTROSE 10% IN WATER 500 ML in EMPTY BAG 1 BAG IV SCH ×2 (18:11→21:17)
[2022-03-27] MEDS: PARoxetine 20 MG TAB PO SCH (20:13)
[2022-03-27 20:50] LABS: Glucose,Whole Blood 85 mg/dL (70-110)
[2022-03-27] MEDS: clonazePAM 0.5 MG TAB PO PRN (22:06)
[2022-03-28] MEDS: HYDROmorphone 1 MG/ML 1 ML SYRINGE IVP PRN ×3 (02:18→10:09)
[2022-03-28 06:24] LABS: Glucose,Whole Blood 94 mg/dL (70-110)
[2022-03-28] MEDS: SODIUM CHLORIDE 0.9% 1,000 ML IV SCH ×2 (06:37→17:30)
[2022-03-28] MEDS: HYDROcodone/APAP 5-325MG 1 EACH TAB PO SCH (06:58)
[2022-03-28] MEDS: PANTOPRAZOLE 40 MG TABLET PO SCH ×2 (06:58→17:30)
[2022-03-28] MEDS: SYMBICORT 80-4.5 MCG INHALER INHALATION SCH ×2 (08:50→20:29)
[2022-03-28] MEDS: IPRATROPIUM 0.5 MG/2.5 ML NEBU INHALATION SCH ×4 (08:50→20:29)
[2022-03-28 08:59] LABS: INR 3.3 (<1.2); Prothrombin Time 32.5 sec (9.0-12.0)
[2022-03-28] MEDS ORDERED: FUROSEMIDE 10 MG/ML 4 ML VIAL IV SCH (09:00)
[2022-03-28 09:21] LABS: Calcium 13.4 mg/dL (8.4-10.2)
[2022-03-28 09:23] LABS: Anisocytosis Slight; Basophils # (A) 0.1 k/uL (0-0.2); Basophils % (A) 1 %; Eosinophils # (A) 0.1 k/uL (0-0.7); Eosinophils % (A) 2 %; HGB 15.5 gm/dL (13.0-17.5); Hypochromasia Marked; Lymphocytes # (A) 0.9 k/uL (1.0-4.8); Lymphocytes % (A) 13 %; MCHC 28.7 g/dL (31.0-37.0); Mean Platelet Volume 8.2; Microcytosis Slight; Monocytes # (A) 0.5 k/uL (0-1.0); Monocytes % (A) 8 %; Neutrophils # (A) 5.1 k/uL (1.3-7.7); Neutrophils % (A) 73 %; Platelet Count 229 k/uL (150-450); RBC 6.75 m/uL (4.30-5.90); RDW 18.6 % (11.5-15.5)
[2022-03-28] MEDS: polyethylene glycoL 3350 17 GM POWD.PACK PO SCH (09:57)
[2022-03-28] MEDS: GABAPENTIN 100 MG CAP PO SCH ×2 (09:57→20:56)
[2022-03-28] MEDS: bisacodyL 10 MG SUPP RECTAL PRN (09:57)
[2022-03-28] MEDS: SENNOSIDES-DOCUSATE SODIUM 1 EACH TAB PO SCH ×2 (09:57→20:56)
[2022-03-28] MEDS: MEGESTROL 400 MG/10 ML CUP PO SCH (09:57)
[2022-03-28 10:11] LABS: Albumin 3.9 g/dL (3.5-5.0); Magnesium 1.9 mg/dL (1.6-2.3); Total Protein 6.1 g/dL (6.3-8.2)
[2022-03-28 10:15] LABS: Calcium 13.4 mg/dL (8.4-10.2)
[2022-03-28 10:29] LABS: Anisocytosis Slight; Basophils # (A) 0.1 k/uL (0-0.2); Basophils % (A) 1 %; Eosinophils # (A) 0.1 k/uL (0-0.7); Eosinophils % (A) 2 %; HCT 54.3 % (39.0-53.0); HGB 15.7 gm/dL (13.0-17.5); Hypochromasia Marked; Lymphocytes # (A) 0.7 k/uL (1.0-4.8); Lymphocytes % (A) 12 %; MCH 23.3 pg (25.0-35.0); MCHC 28.9 g/dL (31.0-37.0); MCV 80.5 fL (80.0-100.0); Mean Platelet Volume 8.5; Microcytosis Slight; Monocytes # (A) 0.5 k/uL (0-1.0); Monocytes % (A) 9 %; Neutrophils # (A) 4.5 k/uL (1.3-7.7); Neutrophils % (A) 73 %; Platelet Count 215 k/uL (150-450); RBC 6.75 m/uL (4.30-5.90); RDW 18.6 % (11.5-15.5); WBC 6.1 k/uL (3.8-10.6)
--- NOTE | 2022-03-28 11:36 | P.PN ---
Subjective Progress Note Date: 03/28/22 Principal diagnosis: Renal mass The patient is a 61-year-old male patient, known history of CLL on [place], chronic kidney stage III, COPD. He presented to the [facility] on 03/18/22 with abdominal pain has been going on for few weeks with progressive worsening over the past fe w days. Patient is nauseous but no vomiting. No hematemesis. No hematuria. Patient was taken zeaf-vri-drrwwib naproxen and ibuprofen for his pain control for the past few days. He stated that he was supposed to follow-up with Dr. Faulkner from oncology last month but he canceled his appointment. Patient has a chronic exertional dyspnea, but it seems to be worsening. He is known to have COPD maintained on 3L home O2, and a combination of Advair and Spiriva on outpatient basis. He also carries a diagnosis of CLL that was followed up by Dr. Faulkner. He is known to have extensive lymphadenopathy related to his CLL. Based on the most recent oncology evaluation, there has been progression his CLL based on progression his lymphadenopathy. In the [facility], the patient was found to have a coagulation profile was abnormal, and the patient has been quite neuropathic even prior admissions. An abdominal CT of the abdomen and pelvis was done and it showed a left perinephric/retroperitoneal soft tissue density which is either a mass versus hematoma and this was not present on previous evaluation or there has been probably a subtle finding in 2020. There is also overall worsening in the lymphadenopathy about the abdomen and ascending into the mediastinum with splenomegaly. The patient also had small bilateral pleural effusions L>R. Abdominal ultrasound was then completed revealing a left perinephritic complex vascular mass, recommending further evaluation with MRI. MRI with and without contrast revealed large posterior perinephrotic mass with massive retroperitoneal adenopathy and massive splenomegaly. Oncology consulted interventional radiology to perform biopsy of renal mass. I NR remains elevated, unable to complete biopsy until INR has improved. Patient given vitamin K. On 03/23/22, patient was found to be hypoxic and had increasing oxygen needs. Repeat x-ray revealed increasing left lower lobe effusion. Pulmonology re-consulted at this time for evaluation. On 03/25/22 ultrasound of chest was completed which revealed an 11.8 cm pleural effusion pocket. Patient will likely need to undergo thoracentesis. However, INR still remains elevated at this time despite receiving multiple doses of Vitamin K. Oncology and interventional radiology continue to follow. The patient will also undergo biopsy of renal mass. Both the thoracentesis and the renal biopsy is on hold until the patient's INR is less than 1.5. 03/26 The patient was lethargic during examination. He was confused and unable to follow a conversation fully. He did state he still has lower left quadrant pain, but it is mild and much better today. He received Dilaudid prior to examination. Spoke with the patient's nephew, Dejon, via telephone. He states he is the patient's next of kin and would like to be updated regularly. He was told the patient's procedures are still on hold because his blood is too thin despite the vitamin K that was given. Awaiting oncology's recommendations. Dejon has never had conversations with the patient regarding his goals of care or wishes. Code status discussed at length. Dejon would like to wait for the renal biopsy and the thoracentesis before deciding on a plan of care moving forward. He would like the patient to remain a full code. 03/27 The patient is lying in bed and appears uncomfortable. He c/o LLQ pain. No family present at time of examination. Patient still slightly confused and has garbled speech.The patient's Fentanyl patch was discontinued yesterday. Per RN, the patient was barely responsive and Narcan had to be administered. Low d ose [place] ATC was added to pain regimen in attempt to keep pain more controlled. Dilaudid IV still available prn for severe pain. Discussed pain medication plan with RN, requested she call with any issues. Patient will likely need anther adjustment in pain medication. The patient denies any nausea. He states he has not been eating much due to a loss of appetite. Wanda added. The patient is currently on 9L NC with slightly labored breathing. SPO2 94%. Awaiting pulmonary to determine if patient will be able to have a thoracentesis today, INR 3.3 today despite receiving vitamin K. 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 Oncology has left message for IR as a biopsy for possible transformation of CLL is needed and per their message Saturday was holding off related to coagulopathy. Returned to patient's bedside to reassess pain. The patient woke up easily. He was a little confused as to where he was and what was going on. He reoriented easily. He stated his pain was "ok". The patient's nephew was present. Education was provided regarding the underlying conditions and poor prognosis. Code status was also addressed again. The patient's nephew is unsure about what to do. He would like to take some time to talk with the patient and his family. The patient is to remain a full code for now. The pulmonary service feels given the patients high INR, a thoracentesis would not be safe at this time. They do not feel like he would tolerate the procedure well. A lymph node biopsy is scheduled to be done later this afternoon. Objective - Vital Signs Vital signs: Vital Signs Temp 97.7 F 03/28/22 03:12 Pulse 90 03/28/22 09:00 Resp 14 03/28/22 03:12 BP 145/83 03/28/22 03:12 Pulse Ox 96 03/27/22 23:30 FiO2 50 03/26/22 08:39 Intake & Output 03/27/22 03/28/22 03/28/22 18:59 06:59 18:59 Intake Total 240 100 Output Total 400 Balance 240 -300 Weight 55 kg Intake: Oral 240 100 Output: Urine 400 Other: Voiding Method Urinal Urinal # Voids 1 - Exam General: Patient lethargic. No acute distress. Appears cachectic and older than stated age. HEENT: Head is atraumatic, normocephalic Sclerae are clear. Pupils equal, round and reactive to light bilaterally. CV: Heart regular in rate and rhythm positive S1 and S2. No clicks, rubs or murmurs. Peripheral pulses equal. 2/4 Lungs: Diminished bilateral bases. No wheezes rales or rhonchi. Respirations even and slightly labored. 9L NC Abdomen/GI: Soft. Bowel sounds present in all 4 quadrants. Bowel sounds normoactive. + abdominal tenderness. Musculoskeletal/ Extremities: + generalized weakness Vascular: Radial pulses equal. 2/4. Skin: Warm and dry. No rash. Neurologic: Oriented times 2-3, confused and mumbles words. Psychiatric: Flat affect - Labs CBC & Chem 7: 03/28/22 09:22 03/28/22 09:22 Labs: Abnormal Lab Results - Last 24 Hours (Table) 07/08/22 07/13/22 07/13/22 Range/Units 15:07 07:48 07:48 RBC (4.30-5.90) m/uL Hct (39.0-53.0) % MCH (25.0-35.0) pg MCHC (31.0-37.0) g/dL RDW (11.5-15.5) % Lymphocytes # (1.0-4.8) k/uL PT 32.5 H (9.0-12.0) sec INR 3.3 H (<1.2) Sodium 135 L (137-145) mmol/L Chloride 94 L (98-107) mmol/L Carbon Dioxide (22-30) mmol/L BUN 44 H (9-20) mg/dL Creatinine 1.83 H (0.66-1.25) mg/dL Calcium 13.4 H* (8.4-10.2) mg/dL Ionized Calcium Young (4.5-5.3) mg/dL Total Protein (6.3-8.2) g/dL Cardiolipin IgM Interp A (NEGATIVE) 03/28/22 03/28/22 03/28/22 Range/Units 07:48 09:22 09:22 RBC 6.75 H 6.75 H (4.30-5.90) m/uL Hct 54.0 H 54.3 H (39.0-53.0) % MCH 23.0 L 23.3 L (25.0-35.0) pg MCHC 28.7 L 28.9 L (31.0-37.0) g/dL RDW 18.6 H 18.6 H (11.5-15.5) % Lymphocytes # 0.9 L 0.7 L (1.0-4.8) k/uL PT (9.0-12.0) sec INR (<1.2) Sodium 135 L (137-145) mmol/L Chloride 93 L (98-107) mmol/L Carbon Dioxide 34 H (22-30) mmol/L BUN 44 H (9-20) mg/dL Creatinine 1.90 H (0.66-1.25) mg/dL Calcium 13.4 H* (8.4-10.2) mg/dL Ionized Calcium Young 7.0 H* (4.5-5.3) mg/dL Total Protein 6.1 L (6.3-8.2) g/dL Cardiolipin IgM Interp (NEGATIVE) Assessment and Plan Assessment: Symptoms * Pain - 4/10 LLQ pain. continue Tyleonl, Neurotin, Flexeril, and Dilaudid. Fentanyl patch discontinued. Increased [place] to 7.5 Q6H ATC * Fatigue - Generalized weakness and fatigue * SOB - Yes - chronic dyspnea on exertion, Continue Symbicort, Albuterol, Atrovent and Lasix. On 9L NC. Thoracentesis when INR below 1.5. * Insomnia - Occasional, Continue Melatonin prn * N/V - Occasional nausea, Continue Zofran prn * Anxiety - Yes, continue Ativan and Klonopin * Depression - No, Continue Paxil * Confusion - Yes * Agitation - No * Hallucinations - No * Appetite/weight loss - + loss of appetite and recent weight loss, encourage PO intake, continue with regular diet and ensure TIDWM and magic cups. Continue Megace. 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 Continue Miralax daily and Dulcolax suppository prn. Continue Senokot--s, asked RN to administer dulcolax supp * Incontinence - No, voids per urinal * Itch - No Plan: Summary/Goals - The patient is lethargic, but awakens easily. He c/o abdominal pain. [place] dose increased to 7.5/325mg. The patient is very weak and debilitated. Code status addressed with patient who stated "I don't know". He is confused and unable to follow a conversation fully. His insight and judgement is not intact at this time. Spoke to oncology CLINICAL TRIALS ASSISTANT via telephone. She is hoping the retroperitoneal mass biopsy results come back tomorrow. She stated if his lymphoma has transformed to [place], it is very treatable and even considered curable. Updated the patient's nephew (DPOA), Dejon, via telephone. He is agreeable in waiting for biopsy results before considering h ospice. However, Dejon did agree to make the patient a DNR. Advanced Directives - No, none on file Code Status - DNR Thank you for this consult Antonella BRENNER- Palliative Care [facility] [id number] Email: [email or web address] Time with Patient: Greater than 30
[2022-03-28 11:42] LABS: Glucose,Whole Blood 93 mg/dL (70-110)
[2022-03-28] MEDS ORDERED: PHYTONADIONE ORAL 5 MG/5 ML ORAL.SYRG PO STA (11:48)
--- NOTE | 2022-03-28 12:00 | P.PN ---
Subjective Progress Note Date: 03/28/22 Principal diagnosis: Pleural effusion. On 03/25/2022 we're asked to see the patient again in regards to increasing left-sided pleural effusion with associated mid to lower lung in filtrate/atelectasis. Right midlung acute infiltrate was noted to be improving. Patient is currently on 50% Ventimask, he states his breathing is about the same, however is having some left upper abdominal discomfort. Patient has not had his biopsy of his left kidney related to increased INR. He was given vitamin K, today's INR is 2.8. Patient is afebrile, overall does not appear to be in distress. An ultrasound the chest was obtained today showing left pleural effusion pocket measuring 11.8 cm. Progress note dated 03/26/2022. The patient does have a large left-sided pleural effusion. Unfortunately, his blood is too thin, for us to be able to safely perform thoracentesis. The pat ient's PT was 28.9 with an INR 0.9. White count 6.8, hemoglobin 15.9, hematocrit 52.7, with a normal platelet count. Sodium 134, potassium 4, chlorides 91, CO2 32, BUN 25, and creatinine 1.54. Calcium is 12. Ultrasound shows a left pleural effusion pocket size of 11.8 cm. Progress note dated 03/27/2022. 61-year-old male seen in room 375. The patient is currently on 9 L nasal cannula, high flow. Is getting saline at 20 mL an hour. Yesterday's INR was 2.9. Today it is 3.3. We see that there has been a palliative care consultation, which we think is very appropriate. The patient likely not able to tolerate a thoracentesis, though it is not safe to do it now given his coagulopathy. White count 6.4, and 15.8, hematocrit 51.5, platelet count 256,000. PTT is 32.5 with an INR 3.3. Sodium 134, potassium 3.8, chlorides 92, CO2 30, BUN 38, and creatinine 1.70. Calcium is 13.2. Chest x-ray, from March 24, and chest ultrasound from March 25, have been reviewed. Progress note dated 03/28/2022. 61-year-old male, who looks much older than his stated age, is seen today in room 375. Currently, the patient is on 9 L high flow oxygen. Is getting 10% dextrose at 20 mL an hour. His repeat INR is still 3.3. He underwent a biopsy by Dr. Pate yesterday. Pathology is currently pending. Currently labs include a white count 6.1, hemoglobin 15.7, hematocrit 54.3, and a platelet count of 215,000. Sodium 135, potassium 4, chlorides 93, CO2 34, anion gap 8, BUN 44, creatinine 1.90. The patient's calcium is 13.4. Ionized calcium is 7. Objective - Vital Signs Vital signs: Vital Signs Temp 98 F 03/28/22 09:57 Pulse 99 03/28/22 09:57 Resp 18 03/28/22 09:57 BP 129/73 03/28/22 09:57 Pulse Ox 92 L 03/28/22 09:57 FiO2 50 03/26/22 08:39 Intake & Output 03/27/22 03/28/22 03/28/22 18:59 06:59 18:59 Intake Total 240 100 180 Output Total 400 300 Balance 240 -300 -120 Weight 55 kg Intake: Intake, IV Titration 60 Amount Dextrose 10% in Water 500 60 ml In Empty Bag 1 bag @ 20 mls/hr IV .Q24H [facility] Rx #:[id number] Oral 240 100 120 Output: Urine 400 300 Other: Voiding Method Urinal Urinal Urinal # Voids 1 - Exam No acute distress, lethargic. Very thin and cachectic appearing. Currently on 9 L nasal O2. Saturations 92 %. No conversational dyspnea or use of accessory muscles. HEENT examination is grossly unremarkable. Neck supple. Full range of motion. No adenopathy thyromegaly or neck vein distention. Cardiovascular examination reveals regular rhythm rate. S1-S2 normal. No S3 or S4. No discernible murmur noted. Heart sounds are distant. Heart rate 99 bpm. Lungs reveal some diminished breath sounds at the left lung base. There is dullness on percussion on the left side. The right lung is essentially clear. Saturations are reasonable. Abdomen soft bowel sounds are heard. No masses or tenderness. Extremities are intact. No cyanosis clubbing or edema. Skin is without rash or lesion. Neurologic examination is brief but nonfocal. - Labs CBC & Chem 7: 03/28/22 09:22 03/28/22 09:22 Labs: Abnormal Lab Results - Last 24 Hours (Table) 03/28/22 03/28/22 03/28/22 Range/Units 07:48 07:48 07:48 RBC 6.75 H (4.30-5.90) m/uL Hct 54.0 H (39.0-53.0) % MCH 23.0 L (25.0-35.0) pg MCHC 28.7 L (31.0-37.0) g/dL RDW 18.6 H (11.5-15.5) % Lymphocytes # 0.9 L (1.0-4.8) k/uL PT 32.5 H (9.0-12.0) sec INR 3.3 H (<1.2) Sodium 135 L (137-145) mmol/L Chloride 94 L (98-107) mmol/L Carbon Dioxide (22-30) mmol/L BUN 44 H (9-20) mg/dL Creatinine 1.83 H (0.66-1.25) mg/dL Calcium 13.4 H* (8.4-10.2) mg/dL Ionized Calcium Young (4.5-5.3) mg/dL Total Protein (6.3-8.2) g/dL 03/28/22 03/28/22 Range/Units 09:22 09:22 RBC 6.75 H (4.30-5.90) m/uL Hct 54.3 H (39.0-53.0) % MCH 23.3 L (25.0-35.0) pg MCHC 28.9 L (31.0-37.0) g/dL RDW 18.6 H (11.5-15.5) % Lymphocytes # 0.7 L (1.0-4.8) k/uL PT (9.0-12.0) sec INR (<1.2) Sodium 135 L (137-145) mmol/L Chloride 93 L (98-107) mmol/L Carbon Dioxide 34 H (22-30) mmol/L BUN 44 H (9-20) mg/dL Creatinine 1.90 H (0.66-1.25) mg/dL Calcium 13.4 H* (8.4-10.2) mg/dL Ionized Calcium Young 7.0 H* (4.5-5.3) mg/dL Total Protein 6.1 L (6.3-8.2) g/dL Assessment and Plan Assessment: Left-sided pleural effusion, contributing to the patient's shortness of breath and hypoxemia. Left flank pain, likely due to enlarging complex mass in the left perinephric area, S/P biopsy by interventional radiology on March 27. Chronic lymphocytic leukemia. History of COPD. Prior history of coronavirus infection, October 2020. History of chronic anemia. Chronic coagulopathy. Hypercalcemia. Plan: Plan dated 03/26/2022. The patient's INR was 2.9, he will get some additional vitamin K. Once the INR is 1.5 or less, it would be safe to do a left-sided thoracentesis. We will continue to follow the patient and make recommendations were appropriate. His overall prognosis remains very guarded. He has severe anorexia/cachexia synd bautista. Labs, x-rays, and medications are all reviewed. Prognosis is certainly guarded. Plan dated 03/27/2022. Despite vitamin K, the patient's INR actually went from 2.9 up to 3.3. It is unsafe in my opinion, to do a thoracentesis at this time. His overall prognosis is poor. He is on 9 L high flow nasal oxygen. I don't know that even if he did not have a coagulopathy, that he would be able to tolerate a thoracentesis. Labs, x-rays, and medications are reviewed. Prognosis is certainly poor. We noticed, that the primary service to place a palliative care consultation, which we think is very appropriate in this patient. Plan dated 03/28/2022. The patient underwent a biopsy done by interventional radiology, yesterday, 03/27/2022. The patient currently remains on 9 L of oxygen, high flow nasal cannula. He is getting 10% dextrose at 20 mL an hour. Labs, x-rays, medications are reviewed. INR still 3.3. No additional recommendations are made. At this time, I do not feel comfortable doing a thoracentesis on this patient. Certainly you could ask interventional radiology if they would feel comfortable doing it. We will see the patient moving forward only as needed. Prognosis is obviously very poor. Time with Patient: Less than 30
--- NOTE | 2022-03-28 13:26 | P.PN ---
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 We are waiting on results and expecting a transformation. Objective - Vital Signs Vital signs: Vital Signs Temp 98 F 03/28/22 09:57 Pulse 99 03/28/22 09:57 Resp 18 03/28/22 09:57 BP 129/73 03/28/22 09:57 Pulse Ox 92 L 03/28/22 09:57 FiO2 50 03/26/22 08:39 Intake & Output 03/27/22 03/28/22 03/28/22 18:59 06:59 18:59 Intake Total 240 100 180 Output Total 400 Balance 240 -300 180 Weight 55 kg Intake: Intake, IV Titration 60 Amount Dextrose 10% in Water 500 60 ml In Empty Bag 1 bag @ 20 mls/hr IV .Q24H [facility] Rx #:[id number] Oral 240 100 120 Output: Urine 400 Other: Voiding Method Urinal Urinal Urinal # Voids 1 - Exam Gen.: NAD HEENT: Mucosa moist, no conjunctival pallor. Neck: Supple. Bilateral small cervical lymphadenopathy that are mobile however no bulky disease palpable. Lymph:Bilateral small cervical lymphadenopathy that are mobile however no bulky disease palpable. Lungs: No respiratory distress. Heart: Regular rate. Abdomen: Soft, nontender. MSK: Left flank tenderness. Neuro: Alert and oriented 3. Skin: No jaundice. Psych: Initially appropriate affect however he became highly anxious after I mentioned the recommendation of MRI stating his very claustrophobic. - Labs CBC & Chem 7: 03/28/22 09:22 03/28/22 09:22 Labs: Abnormal Lab Results - Last 24 Hours (Table) 03/23/22 03/28/22 03/28/22 Range/Units 15:07 07:48 07:48 RBC (4.30-5.90) m/uL Hct (39.0-53.0) % MCH (25.0-35.0) pg MCHC (31.0-37.0) g/dL RDW (11.5-15.5) % Lymphocytes # (1.0-4.8) k/uL PT 32.5 H (9.0-12.0) sec INR 3.3 H (<1.2) Sodium 135 L (137-145) mmol/L Chloride 94 L (98-107) mmol/L Carbon Dioxide (22-30) mmol/L BUN 44 H (9-20) mg/dL Creatinine 1.83 H (0.66-1.25) mg/dL Calcium 13.4 H* (8.4-10.2) mg/dL Ionized Calcium Young (4.5-5.3) mg/dL Total Protein (6.3-8.2) g/dL Cardiolipin IgM Interp A (NEGATIVE) 03/28/22 03/28/22 03/28/22 Range/Units 07:48 09:22 09:22 RBC 6.75 H 6.75 H (4.30-5.90) m/uL Hct 54.0 H 54.3 H (39.0-53.0) % MCH 23.0 L 23.3 L (25.0-35.0) pg MCHC 28.7 L 28.9 L (31.0-37.0) g/dL RDW 18.6 H 18.6 H (11.5-15.5) % Lymphocytes # 0.9 L 0.7 L (1.0-4.8) k/uL PT (9.0-12.0) sec INR (<1.2) Sodium 135 L (137-145) mmol/L Chloride 93 L (98-107) mmol/L Carbon Dioxide 34 H (22-30) mmol/L BUN 44 H (9-20) mg/dL Creatinine 1.90 H (0.66-1.25) mg/dL Calcium 13.4 H* (8.4-10.2) mg/dL Ionized Calcium Young 7.0 H* (4.5-5.3) mg/dL Total Protein 6.1 L (6.3-8.2) g/dL Cardiolipin IgM Interp (NEGATIVE) Assessment and Plan Plan: CT scan - abdomen: report reviewed US - abdomen: report reviewed Assessment and Plan Assessment: 1. Left flank pain - Significant not controlled - Add fentanyl and increase Dilaudid frequency 2. Left renal mass: - Likely related to CLL, concern of lymphatic transformation, await MRI for further evaluation - Biopsy ordered if transformed patient is very treatable and options to control quality and quanitity of life exist. - Have asked for comparision of PET cscan from September 18. CLL: - Calquence on hold until further evaluation of acute hospital proble 4. KEERTHI on CKD 5. Leukocytosis: - due to CLL 6. Chronic coagulopathy: - Due to lupus antocoagulation and antiphospholipid - This is not typically risk of increased bleeding and therefore reversile will not show in the numbers. - This should not be factor with biopsy needed, will discuss with IR saturday morning. 7. Hypoxia: - RLL developing pneumonia on admission -Pulm Following - Also high anxiety, espec with upcoming MRI, premed prior 8. Hypercalcemia: - Related to malignancy, status post aredia Plan: Uric acid 12.2 status post Rasburicase Primary oncologist April Gee in favor of biopsy for likely tranformation CLL Richkters Transformation is of concern. Feels options of treatment are still present that can increase quality of life and control disease, feels patient should hold off on Hospice care if he still wishes to. Status post biopsy await path to result Discussed gols of care given mr. Cochran current diagnosis and anticipated transformation.
[2022-03-28] MEDS: HYDROcodone/APAP 7.5-325MG 1 EACH TAB PO SCH ×3 (14:13→23:52)
--- NOTE | 2022-03-28 14:32 | P.PN ---
Subjective Patient is seen for follow-up for acute kidney injury, associated with NSAIDs, hypercalcemia and hypovolemia. Patient is maintained on IV Lasix Hypercalcemia is secondary to underlying lymphoma Serum creatinine increased to 1.9 today and calcium is up to 13.4 Patient received a dose of pamidronate yesterday. Urine output 1.1 L for 24 hours Oxygen requirement has increased with 9 L currently. CODE STATUS was discussed with the patient and he chooses to continue with aggressive care. IV fluids were started yesterday but held again as chest x-ray shows worsening pulmonary vascular congestion. Lasix dose was decreased yesterday Objective - Vital Signs Vital signs: Vital Signs Temp 98 F 03/28/22 09:57 Pulse 99 03/28/22 09:57 Resp 18 03/28/22 09:57 BP 129/73 03/28/22 09:57 Pulse Ox 92 L 03/28/22 09:57 FiO2 50 03/26/22 08:39 Intake & Output 03/27/22 03/28/22 03/28/22 18:59 06:59 18:59 Intake Total 240 100 180 Output Total 400 300 Balance 240 -300 -120 Weight 55 kg Intake: Intake, IV Titration 60 Amount Dextrose 10% in Water 500 60 ml In Empty Bag 1 bag @ 20 mls/hr IV .Q24H [facility] Rx #:[id number] Oral 240 100 120 Output: Urine 400 300 Other: Voiding Method Urinal Urinal Urinal # Voids 1 1 # Bowel Movements 2 - Exam Patient is lethargic, arousable, comfortable, not in any acute distress Infuse Examination of the heart S1 and S2 Examination lungs shows decreased breath sounds at the bases Abdomen is soft nontender Examination of the lower extremity shows no significant edema - Labs CBC & Chem 7: 03/28/22 09:22 03/28/22 09:22 Labs: Abnormal Lab Results - Last 24 Hours (Table) 03/28/22 03/28/22 03/28/22 Range/Units 07:48 07:48 07:48 RBC 6.75 H (4.30-5.90) m/uL Hct 54.0 H (39.0-53.0) % MCH 23.0 L (25.0-35.0) pg MCHC 28.7 L (31.0-37.0) g/dL RDW 18.6 H (11.5-15.5) % Lymphocytes # 0.9 L (1.0-4.8) k/uL PT 32.5 H (9.0-12.0) sec INR 3.3 H (<1.2) Sodium 135 L (137-145) mmol/L Chloride 94 L (98-107) mmol/L Carbon Dioxide (22-30) mmol/L BUN 44 H (9-20) mg/dL Creatinine 1.83 H (0.66-1.25) mg/dL Calcium 13.4 H* (8.4-10.2) mg/dL Ionized Calcium Young (4.5-5.3) mg/dL Total Protein (6.3-8.2) g/dL 03/28/22 03/28/22 Range/Units 09:22 09:22 RBC 6.75 H (4.30-5.90) m/uL Hct 54.3 H (39.0-53.0) % MCH 23.3 L (25.0-35.0) pg MCHC 28.9 L (31.0-37.0) g/dL RDW 18.6 H (11.5-15.5) % Lymphocytes # 0.7 L (1.0-4.8) k/uL PT (9.0-12.0) sec INR (<1.2) Sodium 135 L (137-145) mmol/L Chloride 93 L (98-107) mmol/L Carbon Dioxide 34 H (22-30) mmol/L BUN 44 H (9-20) mg/dL Creatinine 1.90 H (0.66-1.25) mg/dL Calcium 13.4 H* (8.4-10.2) mg/dL Ionized Calcium Young 7.0 H* (4.5-5.3) mg/dL Total Protein 6.1 L (6.3-8.2) g/dL Assessment and Plan Assessment: 1. Acute kidney injury secondary to NSAIDs, hypercalcemia. Serum creatinine had improved to 1.3 from 1.7 on admission, but increased again secondary to worsening hypercalcemia and diuresis. UA is benign. No evidence of obstruction on CAT scan. Started on diuretics recently. Dose was decreased yesterday. IV fluids were attempted but discontinued as chest x-ray shows significant pulmonary vascular congestion along with the left pleural effusion 2. CK D stage III a with baseline creatinine 1.2-1.3 secondary to nephroscler osis 3. Hypercalcemia associated with lymphoma with elevated one 25-hydroxy vitamin D level at 98 and low PTH. Status post Aredia multiple times 4. History of CLL 5. Metabolic acidosis associated with acute kidney injury and IV fluids, status post by mouth bicarb 6. Volume overload currently on IV Lasix, improved 7. Hyperuricemia questionable tumor lysis status post rasburicase 8. Left perinephric/retroperitoneal soft tissue mass likely related to the lymphoma with worsening lymphadenopathy noted on the CT Plan: Hold Lasix Challenge with IV fluids again Repeat labs in a.m. Poor prognosis
--- NOTE | 2022-03-28 15:19 | P.PN ---
Progress Note - Text Progress Note Date: 03/28/22 Mr. Cochran was seen and examined. He is still high flow nasal cannula. He is confused likely secondary to his hypercalcemia. Discussed care with his nephew who states he makes his uncle's medical decisions. States he has not the DPOA through the courts. Does not he states that family had a discussion and wish for the patient to not have compressions as they feel he is very frail and will likely severely debilitate him. Overall, he remains a poor prognosis due to his debilitated state. Vitals: Reviewed General: Frail-appearing cachectic gentleman HEENT: neck supple Cardiovascular: RRR, S1-S2 Lungs: Breath sounds equal. Diminished, more so at the bases on the left side Abdomen: Soft, left sided tenderness , without guarding or rebound Extremities: No lower extremity edema Lab data reviewed Assessment and plan 1. Left flank pain secondary to left perinephritic complex mass Computed tomography scan of abdomen with complex mass in left perinephric area, this was confirmed on MRI revealing a large posterior nephritic mass with massive retroperitoneal adenopathy and massive splenomegaly. Supportive measures with pain control. Biopsy report pending. Supportive measures with pain control. 2. Left-sided pleural effusion Likely secondary to his malignancy. INR is too elevated for thoracentesis at this time. 3. Acute hypoxic respiratory failure Secondary to #2. He is on high flow nasal cannula. We will wean down as tolerated. 4. CLL He does have massive splenomegaly with retroperitoneal lymphadenopathy. It appears his malignancy has advanced. He appears very debilitated, frail and cachectic. He would be a good hospice candidate. Palliative care to evaluate. 5. Elevated INR Likely secondary to his malignancy. INR uptrending, give vitamin K today in case he does undergo thoracentesis. 6. KEERTHI on CKD Likely secondary to hypovolemia from hypercalcemia. Lasix to facilitate calcium excretion. IV fluids started by nephrology, chest x-ray shows some congestion. We will discontinue fluids if respirations get worse. Avoid nephrotoxins. BMP next am. 7. Hypercalcemia Moderate, and related to his malignancy. Received bisphosphonate yesterday. Restarted on IV fluids. Continue Lasix. Telemetry monitoring. 8. COPD Not in exacerbation. Continue with scheduled and as needed breathing treatments. 9. Metabolic encephalopathy Likely secondary to hypercalcemia. Continue with treatment as above. Disposition: Unclear at this time. Poor prognosis overall. Goals of care to be addressed with family. CODE STATUS: No compressions, family okay with intubation DVT prophylaxis: SCDs as INR elevated
[2022-03-28 16:26] LABS: Glucose,Whole Blood 91 mg/dL (70-110)
[2022-03-28] MEDS: LEVOFLOXACIN 250 MG TAB PO SCH (17:30)
[2022-03-28] MEDS: clonazePAM 0.5 MG TAB PO PRN (18:21)
[2022-03-28 20:28] LABS: Glucose,Whole Blood 85 mg/dL (70-110)
[2022-03-28] MEDS: PARoxetine 20 MG TAB PO SCH (20:56)
[2022-03-29] MEDS: LORazepam 0.5 MG TAB PO PRN (00:38)
[2022-03-29] MEDS: HYDROmorphone 1 MG/ML 1 ML SYRINGE IVP PRN ×6 (01:33→23:30)
[2022-03-29] MEDS: SODIUM CHLORIDE 0.9% 1,000 ML IV SCH (04:32)
[2022-03-29 05:58] LABS: Glucose,Whole Blood 73 mg/dL (70-110)
[2022-03-29] MEDS: PANTOPRAZOLE 40 MG TABLET PO SCH (06:06)
[2022-03-29] MEDS: HYDROcodone/APAP 7.5-325MG 1 EACH TAB PO SCH (06:06)
[2022-03-29] MEDS: clonazePAM 0.5 MG TAB PO PRN (06:50)
[2022-03-29] MEDS: IPRATROPIUM 0.5 MG/2.5 ML NEBU INHALATION SCH ×4 (07:11→19:18)
[2022-03-29] MEDS: SYMBICORT 80-4.5 MCG INHALER INHALATION SCH ×2 (07:11→19:18)
[2022-03-29] MEDS: GABAPENTIN 100 MG CAP PO SCH ×2 (09:24→21:00)
[2022-03-29] MEDS: MEGESTROL 400 MG/10 ML CUP PO SCH (09:24)
[2022-03-29] MEDS: LEVOFLOXACIN 250 MG TAB PO SCH (09:24)
[2022-03-29] MEDS: SENNOSIDES-DOCUSATE SODIUM 1 EACH TAB PO SCH ×2 (09:24→21:00)
[2022-03-29] MEDS: polyethylene glycoL 3350 17 GM POWD.PACK PO SCH (09:25)
[2022-03-29] MEDS: bisacodyL 10 MG SUPP RECTAL PRN (09:25)
[2022-03-29 09:30] LABS: Calcium 12.8 mg/dL (8.4-10.2); Magnesium 1.9 mg/dL (1.6-2.3); Total Bilirubin 1.2 mg/dL (0.2-1.3); Total Protein 6.1 g/dL (6.3-8.2); Uric Acid 12.7 mg/dL (3.5-8.5)
[2022-03-29 09:48] LABS: INR 3.2 (<1.2); Prothrombin Time 31.9 sec (9.0-12.0)
[2022-03-29] MEDS: DEXTROSE 10% IN WATER 500 ML in EMPTY BAG 1 BAG IV SCH (10:15)
[2022-03-29 10:26] LABS: Anisocytosis Slight; Basophils # (A) 0.1 k/uL (0-0.2); Basophils % (A) 1 %; Eosinophils # (A) 0.1 k/uL (0-0.7); Eosinophils % (A) 1 %; HCT 54.6 % (39.0-53.0); HGB 15.7 gm/dL (13.0-17.5); Hypochromasia Marked; Lymphocytes # (A) 0.9 k/uL (1.0-4.8); Lymphocytes % (A) 15 %; MCH 23.1 pg (25.0-35.0); MCHC 28.8 g/dL (31.0-37.0); MCV 80.1 fL (80.0-100.0); Microcytosis Slight; Monocytes # (A) 0.4 k/uL (0-1.0); Monocytes % (A) 7 %; Neutrophils # (A) 4.2 k/uL (1.3-7.7); Neutrophils % (A) 71 %; Platelet Count 238 k/uL (150-450); RBC 6.81 m/uL (4.30-5.90); RDW 18.4 % (11.5-15.5); WBC 5.9 k/uL (3.8-10.6)
[2022-03-29 10:39] LABS: Ionized Calcium 6.9 mg/dL (4.5-5.3)
[2022-03-29] MEDS ORDERED: DEXTROSE 50% SYRINGE 50 ML IVP ONE (11:51)
[2022-03-29 11:59] LABS: Glucose,Whole Blood 68 mg/dL (70-110)
[2022-03-29 12:11] LABS: Glucose,Whole Blood 183 mg/dL (70-110)
--- NOTE | 2022-03-29 12:16 | P.PN ---
Subjective Progress Note Date: 03/29/22 Principal diagnosis: Concern of Renal Mass Patient seen and evaluated this am at bedside, he is comfortable, medicated for comfort, arousable to his name and stimulation, per pallaiaitive care answered questions appropriately. 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 Dexamethasone bolus 40mg 4 days on and 4 days off ordered, then will repeat. Path sent to [facility] to Dr. Branch in the interim for additional staining. Palliative care has been communicating with patients nephew, who is young, overwhelmed and scared. We are available if further discussion needs to be had with family and Palliative care has agreed to contact us if this is needed. Overall goals of care have been discussed, his overall picture is difficult as per nursing he is anxious and in pain, but then becomes too sedated with medications to a point they are concerned and feel he needs narcan reverse. As he did appear medicated today, if he is arousable and vitals are stable will monitor and allow comfort. If a definitive diagnosis results as a high grade lymphoma transformation Ruffin treatment options do exist to obtain quality and quantity of life. Patients nephew understands the critical period of waiting we are in and that we are focused on supportive care and quality of life in the interim. Prior to patients decline he was adamant about fighting for his nephew and niece, he has mentally declined the past couple days and this appears to be a combination of the rapidly progressing cancer and medication. Will continue with plan to wait on final pathology, allow palliative care to discuss status with patient's family as she has been the past 4 days and this will limit family confusion and unnecessary anxiety. Objective - Vital Signs Vital signs: Vital Signs Temp 98.2 F 03/29/22 08:51 Pulse 95 03/29/22 08:51 Resp 14 03/29/22 08:51 BP 158/81 03/29/22 08:51 Pulse Ox 94 L 03/29/22 08:51 FiO2 50 03/26/22 08:39 Intake & Output 03/28/22 03/29/22 03/29/22 18:59 06:59 18:59 Intake Total 260 0 Output Total 300 450 Balance -40 -450 0 Intake: Intake, IV Titration 60 Amount Dextrose 10% in Water 500 60 ml In Empty Bag 1 bag @ 20 mls/hr IV .Q24H [facility] Rx #:[id number] Oral 200 0 Output: Urine 300 450 Stool 0 Other: Voiding Method Urinal Urinal # Voids 1 0 # Bowel Movements 2 - Exam Gen.: NAD Lungs: shallow respirations Heart: Regular rate. Abdomen: Soft, nontender. MSK: Left flank tenderness. Neuro: Lethargic, medicated but awakens to stimuli Skin: No jaundice. - Labs CBC & Chem 7: 03/29/22 08:41 03/29/22 08:41 Labs: Abnormal Lab Results - Last 24 Hours (Table) 03/28/22 03/28/22 03/28/22 Range/Units 07:48 07:48 07:48 RBC 6.75 H (4.30-5.90) m/uL Hct 54.0 H (39.0-53.0) % MCH 23.0 L (25.0-35.0) pg MCHC 28.7 L (31.0-37.0) g/dL RDW 18.6 H (11.5-15.5) % Lymphocytes # 0.9 L (1.0-4.8) k/uL PT 32.5 H (9.0-12.0) sec INR 3.3 H (<1.2) Sodium 135 L (137-145) mmol/L Chloride 94 L (98-107) mmol/L Carbon Dioxide (22-30) mmol/L BUN 44 H (9-20) mg/dL Creatinine 1.83 H (0.66-1.25) mg/dL Calcium 13.4 H* (8.4-10.2) mg/dL Ionized Calcium Young (4.5-5.3) mg/dL Total Protein (6.3-8.2) g/dL 03/28/22 03/28/22 Range/Units :22 09:22 RBC 6.75 H (4.30-5.90) m/uL Hct 54.3 H (39.0-53.0) % MCH 23.3 L (25.0-35.0) pg MCHC 28.9 L (31.0-37.0) g/dL RDW 18.6 H (11.5-15.5) % Lymphocytes # 0.7 L (1.0-4.8) k/uL PT (9.0-12.0) sec INR (<1.2) Sodium 135 L (137-145) mmol/L Chloride 93 L (98-107) mmol/L Carbon Dioxide 34 H (22-30) mmol/L BUN 44 H (9-20) mg/dL Creatinine 1.90 H (0.66-1.25) mg/dL Calcium 13.4 H* (8.4-10.2) mg/dL Ionized Calcium Young 7.0 H* (4.5-5.3) mg/dL Total Protein 6.1 L (6.3-8.2) g/dL Assessment and Plan Plan: CT scan - abdomen: report reviewed US - abdomen: report reviewed Assessment and Plan Assessment: 1. Left flank pain - Palliaitive care has been assisting in pain management and disucssion with family - Palliative care to continue 2. Left renal mass: - DIscussed with pathology consistent with rapidly progressive richters transformation lymphoma which is highly treatment - Pathology has been sent out and will need final immuno stains before a finalized diagnosis can be made 3. CLL: - COncern of progressively rapid transformation richters - Dexamethasone 40mg IVPB 4 days, then off 4 days, then repeated ordered after speaking with pathology/PPI switched to IVP - Calquence discontinued 4. KEERTHI on CKD 5. Leukocytosis: - due to CLL with likely transformation 6. Chronic coagulopathy: - Due to lupus antocoagulation and antiphospholipid - Treatment for prolonged coags is not necessary unless evidence of bleeding 7. Hypoxia: - RLL developing pneumonia on admission -Pulm Following - Also high anxiety when awake 8. Hypercalcemia: - Related to malignancy, status post aredia Plan: Patient seen and evaluated this am at bedside, he is comfortable, medicated for comfort, arousable to his name and stimulation, per pallaiaitive care answered questions appropriately. 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 Dexamethasone bolus 40mg 4 days on and 4 days off ordered, then will repeat. Path sent to [facility] to Dr. Branch in the interim for additional staining. Palliative care has been communicating with patients nephew, who is young, overwhelmed and scared. We are available if further discussion needs to be had with family and Palliative care has agreed to contact us if this is needed. Overall goals of care have been discussed, his overall picture is difficult as per nursing he is anxious and in pain, but then becomes too sedated with medications to a point they are concerned and feel he needs narcan reverse. As he did appear medicated today, if he is arousable and vitals are stable will monitor and allow comfort. If a definitive diagnosis results as a high grade lymphoma transformation Ruffin treatment options do exist to obtain quality and quantity of life. Patients nephew understands the critical period of waiting we are in and that we are focused on supportive care and quality of life in the interim. Prior to patients decline he was adamant about fighting for his nephew and niece, he has mentally declined the past couple days and this appears to be a combination of the rapidly progressing cancer and medication. Will continue with plan to wait on final pathology, allow palliative care to discuss status with patient's family as she has been the past 4 days and this will limit family confusion and unnecessary anxiety. Dr. Majano: I have completed the full history and physical and eveloped the above impression and plan, agree with dictation, dictated as a scribe.
--- NOTE | 2022-03-29 12:33 | P.PN ---
Subjective Patient is seen for follow-up for acute kidney injury, associated with NSAIDs, hypercalcemia and hypovolemia. Hypercalcemia is secondary to underlying lymphoma Serum creatinine had increased to 1.9 and it is down to 1.7 today Patient received multiple doses of pamidronate. Oxygen requirement increased with 9 L currently CODE STATUS was discussed with the patient and he chooses to continue with aggressive care. Started on gentle IV hydration yesterday. O2 requirements are about the same. Objective - Vital Signs Vital signs: Vital Signs Temp 98.6 F 03/29/22 11:56 Pulse 96 03/29/22 11:56 Resp 12 03/29/22 11:56 BP 146/75 03/29/22 11:56 Pulse Ox 90 L 03/29/22 11:56 FiO2 50 03/26/22 08:39 Intake & Output 03/28/22 03/29/22 03/29/22 18:59 06:59 18:59 Intake Total 260 570 Output Total 300 450 Balance -40 -450 570 Intake: IV 570 Dextrose 10% in Water 500 160 ml In Empty Bag 1 bag @ 20 mls/hr IV .Q24H [facility] Rx #:[id number] Invasive Line 3 10 Sodium Chloride 0.9% 1, 400 000 ml @ 50 mls/hr IV . Q20H [facility] Rx#:[id number] Intake, IV Titration 60 Amount Dextrose 10% in Water 500 60 ml In Empty Bag 1 bag @ 20 mls/hr IV .Q24H [facility] Rx #:[id number] Oral 200 0 Output: Urine 300 450 Stool 0 Other: Voiding Method Urinal Urinal Diaper # Voids 1 0 # Bowel Movements 2 - Exam Patient is lethargic, arousable, comfortable, not in any acute distress Infuse Examination of the heart S1 and S2 Examination lungs shows decreased breath sounds at the bases Abdomen is soft nontender Examination of the lower extremity shows no significant edema - Labs CBC & Chem 7: 03/29/22 08:41 03/29/22 08:41 Labs: Abnormal Lab Results - Last 24 Hours (Table) 03/29/22 03/29/22 03/29/22 Range/Units 08:41 08:41 08:41 RBC 6.81 H (4.30-5.90) m/uL Hct 54.6 H (39.0-53.0) % MCH 23.1 L (25.0-35.0) pg MCHC 28.8 L (31.0-37.0) g/dL RDW 18.4 H (11.5-15.5) % Lymphocytes # 0.9 L (1.0-4.8) k/uL PT 31.9 H (9.0-12.0) sec INR 3.2 H (<1.2) Sodium 135 L (137-145) mmol/L Chloride 95 L (98-107) mmol/L BUN 51 H (9-20) mg/dL Creatinine 1.76 H (0.66-1.25) mg/dL Glucose 70 L (74-99) mg/dL POC Glucose (mg/dL) (70-110) mg/dL Uric Acid 12.7 H (3.5-8.5) mg/dL Calcium 12.8 H (8.4-10.2) mg/dL Ionized Calcium Young 6.9 H* (4.5-5.3) mg/dL Total Protein 6.1 L (6.3-8.2) g/dL 03/29/22 03/29/22 Range/Units 11:47 12:02 RBC (4.30-5.90) m/uL Hct (39.0-53.0) % MCH (25.0-35.0) pg MCHC (31.0-37.0) g/dL RDW (11.5-15.5) % Lymphocytes # (1.0-4.8) k/uL PT (9.0-12.0) sec INR (<1.2) Sodium (137-145) mmol/L Chloride (98-107) mmol/L BUN (9-20) mg/dL Creatinine (0.66-1.25) mg/dL Glucose (74-99) mg/dL POC Glucose (mg/dL) 68 L 183 H (70-110) mg/dL Uric Acid (3.5-8.5) mg/dL Calcium (8.4-10.2) mg/dL Ionized Calcium Young (4.5-5.3) mg/dL Total Protein (6.3-8.2) g/dL Assessment and Plan Assessment: 1. Acute kidney injury secondary to NSAIDs, hypercalcemia. Serum creatinine had improved to 1.3 from 1.7 on admission, but increased again secondary to worsening hypercalcemia and diuresis. UA is benign. No evidence of obstruction on CAT scan. Currently off of diuretics and started on gentle IV hydration. Chest x-ray shows bilateral pulmonary infiltrates suggestive of pulmonary vascular congestion however patient's respiratory status is currently stable. 2. CK D stage III a with baseline creatinine 1.2-1.3 secondary to nephros clerosis 3. Hypercalcemia associated with lymphoma with elevated one 25-hydroxy vitamin D level at 98 and low PTH. Status post Aredia multiple times 4. History of CLL 5. Metabolic acidosis associated with acute kidney injury and IV fluids, status post by mouth bicarb 6. Volume overload currently on IV Lasix, improved 7. Hyperuricemia questionable tumor lysis status post rasburicase 8. Left perinephric/retroperitoneal soft tissue mass likely related to the lymphoma with worsening lymphadenopathy noted on the CT Plan: Continue with normal saline at 50 mL an hour
--- NOTE | 2022-03-29 15:50 | P.PN ---
Subjective Progress Note Date: 03/29/22 Principal diagnosis: Renal mass The patient is a 61-year-old male patient, known history of CLL on Calquence, chronic kidney stage III, COPD. He presented to [facility] on 03/[facility]/22 with abdominal pain has been going on for few weeks with progressive worsening over the past fe w days. Patient is nauseous but no vomiting. No hematemesis. No hematuria. Patient was taken [id number] naproxen and ibuprofen for his pain control for the past few days. He stated that he was supposed to follow-up with Dr. Faulkner from oncology last month but he canceled his appointment. Patient has a chronic exertional dyspnea, but it seems to be worsening. He is known to have COPD maintained on 3L home O2, and a combination of Advair and Spiriva on outpatient basis. He also carries a diagnosis of CLL that was followed up by Dr. Faulkner. He is known to have extensive lymphadenopathy related to his CLL. Based on the most recent oncology evaluation, there has been progression his CLL based on progression his lymphadenopathy. In the [facility], the patient was found to have a coagulation profile was abnormal, and the patient has been quite neuropathic even prior admissions. An abdominal CT of the abdomen and pelvis was done and it showed a left perinephric/retroperitoneal soft tissue density which is either a mass versus hematoma and this was not present on previous evaluation or there has been probably a subtle finding in 2020. There is also overall worsening in the lymphadenopathy about the abdomen and ascending into the mediastinum with splenomegaly. The patient also had small bilateral pleural effusions L>R. Abdominal ultrasound was then completed revealing a left perinephritic complex vascular mass, recommending further evaluation with MRI. MRI with and without contrast revealed large posterior perinephrotic mass with massive retroperitoneal adenopathy and massive splenomegaly. Oncology consulted interventional radiology to perform biopsy of renal mass. I NR remains elevated, unable to complete biopsy until INR has improved. Patient given vitamin K. On 03/23/22, patient was found to be hypoxic and had increasing oxygen needs. Repeat x-ray revealed increasing left lower lobe effusion. Pulmonology re-consulted at this time for evaluation. On 03/25/22 ultrasound of chest was completed which revealed an 11.8 cm pleural effusion pocket. Patient will likely need to undergo thoracentesis. However, INR still remains elevated at this time despite receiving multiple doses of Vitamin K. Oncology and interventional radiology continue to follow. The patient will also undergo biopsy of renal mass. Both the thoracentesis and the renal biopsy is on hold until the patient's INR is less than 1.5. 03/26 The patient was lethargic during examination. He was confused and unable to follow a conversation fully. He did state he still has lower left quadrant pain, but it is mild and much better today. He received Dilaudid prior to examination. Spoke with the patient's nephew, Dejon, via telephone. He states he is the patient's next of kin and would like to be updated regularly. He was told the patient's procedures are still on hold because his blood is too thin despite the vitamin K that was given. Awaiting oncology's recommendations. Dejon has never had conversations with the patient regarding his goals of care or wishes. Code status discussed at length. Dejon would like to wait for the renal biopsy and the thoracentesis before deciding on a plan of care moving forward. He would like the patient to remain a full code. 03/27 The patient is lying in bed and appears uncomfortable. He c/o LLQ pain. No family present at time of examination. Patient still slightly confused and has garbled speech.The patient's Fentanyl patch was discontinued yesterday. Per RN, the patient was barely responsive and Narcan had to be administered. Low d ose Pacifica ATC was added to pain regimen in attempt to keep pain more controlled. Dilaudid IV still available prn for severe pain. Discussed pain medication plan with RN, requested she call with any issues. Patient will likely need anther adjustment in pain medication. The patient denies any nausea. He states he has not been eating much due to a loss of appetite. Wanda added. The patient is currently on 9L NC with slightly labored breathing. SPO2 94%. Awaiting pulmonary to determine if patient will be able to have a thoracentesis today, INR 3.3 today despite receiving vitamin K. 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 Oncology has left message for IR as a biopsy for possible transformation of CLL is needed and per their message Saturday was holding off related to coagulopathy. Returned to patient's bedside to reassess pain. The patient woke up easily. He was a little confused as to where he was and what was going on. He reoriented easily. He stated his pain was "ok". The patient's nephew was present. Education was provided regarding the underlying conditions and poor prognosis. Code status was also addressed again. The patient's nephew is unsure about what to do. He would like to take some time to talk with the patient and his family. The patient is to remain a full code for now. The pulmonary service feels given the patients high INR, a thoracentesis would not be safe at this time. They do not feel like he would tolerate the procedure well. A lymph node biopsy is scheduled to be done later this afternoon. 03/28 The patient is lethargic, but awakens easily. He c/o abdominal pain. Pacifica dose increased to 7.5/325mg. The patient is very weak and debilitated. Code status addressed with patient who stated "I don't know". He is confused and unable to follow a conversation fully. His insight and judgment is not intact at this time. Spoke to oncology [employer] via telephone. She is hoping the retroperitoneal mass biopsy results come back tomorrow. She stated if his lymphoma has transformed to Richters, it is very treatable and even considered curable. Updated the patient's nephew (DPOA), Dejon, via telephone. He is agreea ble in waiting for biopsy results before considering hospice. However, Dejon did agree to make the patient a DNR. Objective - Vital Signs Vital signs: Vital Signs Temp 98.6 F 03/29/22 11:56 Pulse 96 03/29/22 11:56 Resp 12 03/29/22 11:56 BP 146/75 03/29/22 11:56 Pulse Ox 90 L 03/29/22 11:56 FiO2 50 03/26/22 08:39 Intake & Output 03/28/22 03/29/22 03/29/22 18:59 06:59 18:59 Intake Total 260 570 Output Total 300 450 Balance -40 -450 570 Weight 55 kg Intake: IV 570 Dextrose 10% in Water 500 160 ml In Empty Bag 1 bag @ 20 mls/hr IV .Q24H [facility] Rx #:[id number] Invasive Line 3 10 Sodium Chloride 0.9% 1, 400 000 ml @ 50 mls/hr IV . Q20H [facility] Rx#:[id number] Intake, IV Titration 60 Amount Dextrose 10% in Water 500 60 ml In Empty Bag 1 bag @ 20 mls/hr IV .Q24H [facility] Rx #:[id number] Oral 200 0 Output: Urine 300 450 Stool 0 Other: Voiding Method Urinal Urinal Diaper # Voids 1 0 # Bowel Movements 2 - Exam General: Patient lethargic. No acute distress. Appears frail, cachectic, and older than stated age. HEENT: Head is atraumatic, normocephalic Sclerae are clear. Pupils equal, round and reactive to light bilaterally. CV: Heart regular in rate and rhythm positive S1 and S2. No clicks, rubs or murmurs. Peripheral pulses equal. 2/4 Lungs: Diminished bilateral bases. No wheezes rales or rhonchi. Respirations even and slightly labored. 9L NC Abdomen/GI: Soft. Bowel sounds present in all 4 quadrants. Bowel sounds normoactive. + abdominal tenderness. Musculoskeletal/ Extremities: DENNIS, + generalized weakness and muscle wasting Vascular: Radial pulses equal. 2/4. Skin: Warm and dry. No rash. Neurologic: Oriented times 2-3, confused and mumbles words. Follows commands. Psychiatric: Flat affect - Labs CBC & Chem 7: 03/29/22 08:41 03/29/22 08:41 Labs: Abnormal Lab Results - Last 24 Hours (Table) 03/29/22 03/29/22 03/29/22 Range/Units 08:41 08:41 08:41 RBC 6.81 H (4.30-5.90) m/uL Hct 54.6 H (39.0-53.0) % MCH 23.1 L (25.0-35.0) pg MCHC 28.8 L (31.0-37.0) g/dL RDW 18.4 H (11.5-15.5) % Lymphocytes # 0.9 L (1.0-4.8) k/uL PT 31.9 H (9.0-12.0) sec INR 3.2 H (<1.2) Sodium 135 L (137-145) mmol/L Chloride 95 L (98-107) mmol/L BUN 51 H (9-20) mg/dL Creatinine 1.76 H (0.66-1.25) mg/dL Glucose 70 L (74-99) mg/dL POC Glucose (mg/dL) (70-110) mg/dL Uric Acid 12.7 H (3.5-8.5) mg/dL Calcium 12.8 H (8.4-10.2) mg/dL Ionized Calcium Young 6.9 H* (4.5-5.3) mg/dL Total Protein 6.1 L (6.3-8.2) g/dL 03/29/22 03/29/22 Range/Units 11:47 12:02 RBC (4.30-5.90) m/uL Hct (39.0-53.0) % MCH (25.0-35.0) pg MCHC (31.0-37.0) g/dL RDW (11.5-15.5) % Lymphocytes # (1.0-4.8) k/uL PT (9.0-12.0) sec INR (<1.2) Sodium (137-145) mmol/L Chloride (98-107) mmol/L BUN (9-20) mg/dL Creatinine (0.66-1.25) mg/dL Glucose (74-99) mg/dL POC Glucose (mg/dL) 68 L 183 H (70-110) mg/dL Uric Acid (3.5-8.5) mg/dL Calcium (8.4-10.2) mg/dL Ionized Calcium Young (4.5-5.3) mg/dL Total Protein (6.3-8.2) g/dL Assessment and Plan Assessment: Symptoms * Pain - 4/10 LLQ pain. continue Tyleonl and Neurotin. Added low dose Fentanyl patch, Changed Pacifica and Dilaudid prn * Fatigue - Generalized weakness and fatigue * SOB - Yes - chronic dyspnea on exertion, Continue Symbicort, Albuterol, Atrovent and Lasix. On 9L NC. Thoracentesis when INR below 1.5. * Insomnia - Occasional, Continue Melatonin prn * N/V - Occasional nausea, Continue Zofran prn * Anxiety - Yes, continue Ativan and Klonopin * Depression - No, Continue Paxil * Confusion - Yes * Agitation - No * Hallucinations - No * Appetite/weight loss - + loss of appetite and recent weight loss, encourage PO intake, continue with regular diet and ensure TIDWM and magic cups. Continue Megace. * Dysphagia - No * Constipation - LBM 03/28 x 2. Continue Senokot -s and Miralax daily. Dulcolax suppository prn. * Incontinence - No, voids per urinal * Itch - No Plan: Summary/Goals - The patient was able to tell me he is in the hospital, the correct year, and his last name. He is lethargic, but wakens easily. Patient was receiving IV Dilaudid approximately every 2 hours despite scheduled Pacifica. Pain regimen changed to a low dose Fentanyl patch, and Pacifica and Dilaudid prn. Awaiting biopsy results for plan of care. Patient's nephew updated. Advanced Directives - No, none on file Code Status - DNR Thank you for this consult Antonella Paz [facility] [id number] Email: [email or web address] Time with Patient: Greater than 30
[2022-03-29 17:06] LABS: Glucose,Whole Blood 73 mg/dL (70-110)
[2022-03-29] MEDS: PANTOPRAZOLE 40 MG/10 ML VIAL IVP SCH ×2 (18:13→21:03)
--- NOTE | 2022-03-29 18:13 | P.PN ---
Subjective Progress Note Date: 03/29/22 Hospital course: Patient is a very pleasant 61-year-old male with a past medical history of CLL on Calquence, chronic kidney stage III, and COPD. He presented to the emergency department on 03/18/22 with a chief complaint of left flank pain. Patient reported this pain began approximately a few weeks ago and significantly worsened over the past few days. He reported the pain still left flank and was accompanied by nausea. He underwent full evaluation in the emergency department. He was found to have significant leukocytosis with WBC count of 18.9 and an acute kidney injury with BUN 26, creatinine 1.72, and GFR 41. Urinalysis was negative for blood, protein, or infection. Covid PCR negative. CT abdomen and pelvis revealed a left perinephritic/retroperitoneal soft tissue suspicious for mass with overall worsening of previously known lymphadenopathy throughout the abdomen and ascending into the mediastinum with persistent splenomegaly consistent with his prior history of lymphoma along with increase and bilateral pleural effusions with left greater than right. Patient was admitted under our services with consultation to oncology, vascular surgery, nephrology, and urology. Abdominal ultrasound was completed revealing a left perinephritic complex vascular mass, recommending further evaluation with MRI. MRI with and without contrast revealed large posterior perinephrotic mass with massive retroperitoneal adenopathy and massive splenomegaly. Oncology consulted interventional radiology to perform biopsy of renal mass. INR remains elevated, unable to complete biopsy until INR has improved. Patient given vitamin K. On 03/23/22, patient was found to be hypoxic and had increasing oxygen needs. Repeat x-ray revealed increasing left lower lobe effusion. Pulmonology re-consulted at this time for evaluation. On 03/25/22 ultrasound of chest was completed which revealed an 11.8 cm pleural effusion pocket. Patient will likely need to u ndergo thoracentesis, however due to persistently elevated INR it is deemed unsafe to perform at this time. Patient currently on palliative care and underwent renal mass biopsy on 03/27/22 and has been started on high-dose steroids by hematology/oncology team with plans to start chemotherapy on , 04/03/22. Physical exam: Pt seen and fully evaluated at bedside this morning, patient lethargic and arousable only via tactile/painful stimuli. He remains on 9 L O2 via high flow nasal cannula. Called and spoke with patient's family, nephew, Dejon regarding patient's lethargic state and at this time patient to continue with palliative treatment and current plan per their request. Overall poor prognosis secondary to debilitated state. . Vital signs reviewed and stable. General: Nontoxic, no distress and appears stated age. Thin, malnourished. Derm: Skin warm and dry, normal coloration for ethnicity. Head: Atraumatic, normocephalic and symmetric. Eyes: EOMs intact, no lid lag, and anicteric sclera Mouth: no lip lesions, mucus membranes moist Cardiovascular: regular rate and rhythm with normal S1S2, no murmur, positive posterior tibial pulses bilaterally, and cap refill < 2 seconds. Lungs: Respirations even, regular, and unlabored on 9 L O2 via venturi mask with FiO2 of 50%. Lungs diminished no rhonchi, rales, wheezes or crackles present, and no accessory muscle usage. Abdominal: soft, Bowel sounds 4 quadrants. Ext:No gross muscle atrophy, no edema, no contractures. Patient withdraws from pain. Neuro: Lethargic, sedated. Psych: Lethargic, sedated. Assessment and Plan of Care: CLL Left perinephric complex mass status post biopsy on 03/27/22 Massive splenomegaly - MRI with and without contrast revealed large posterior perinephrotic mass with massive retroperitoneal adenopathy and massive splenomegaly. -Pain control with IV Dilaudid and oncology added on fentanyl patch -Hematology/oncology following, started patient on high-dose steroids 4 days with plans to begin dose of chemotherapy on 04/03/22. KEERTHI on CKD Hypercalcemia secondary to underlying lymphoma -Nephrology following, appreciate recommendations -Continue with IV fluid hydration Acute respiratory failure with hypoxia secondary to increasing left pleural effusion -Ultrasound chest completed revealing an 11.8 cm pleural effusion pocket -Pulmonology following, recommending patient undergo thoracentesis, however due to persistently elevated INR it is deemed unsafe to perform at this time. -Continue with oxygen supplementation to maintain SpO2 equal to or greater than 90%. Chronic coagulopathy Chronic anemia of chronic disease Lupus anticogulant -Secondary to CLL, hematology/oncology following. Hypomagnesemia, replaced COPD without acute exacerbation -Continue Symbicort 2 puffs twice daily along with PRN nebulizer treatments for shortness of breath and/or wheezing. CODE STATUS: Full code DVT prophylaxis: SCDs Discussed with: Patient, pulmonary and RN Anticipated discharge date: Clinical course to determine Anticipated discharge place: Clinical course to determine A total of 39 minutes was spent on the care of this complex patient more than 50% of the time was spent in counseling and care coordination. I reviewed the documentation as provided by the CAYLA above, who is the original author of this note. I agree with the documented assessment and plan, with the following changes: none Objective - Vital Signs Vital signs: Vital Signs Temp 98.2 F 03/29/22 08:51 Pulse 95 03/29/22 08:51 Resp 14 03/29/22 08:51 BP 158/81 03/29/22 08:51 Pulse Ox 94 L 03/29/22 08:51 FiO2 50 03/26/22 08:39 Intake & Output 03/28/22 03/29/22 03/29/22 18:59 06:59 18:59 Intake Total 260 0 Output Total 300 450 Balance -40 -450 0 Intake: Intake, IV Titration 60 Amount Dextrose 10% in Water 500 60 ml In Empty Bag 1 bag @ 20 mls/hr IV .Q24H [facility] Rx #:[id number] Oral 200 0 Output: Urine 300 450 Stool 0 Other: Voiding Method Urinal Urinal # Voids 1 0 # Bowel Movements 2 - Labs CBC & Chem 7: 04/05/22 14:23 04/05/22 06:55 Labs: Abnormal Lab Results - Last 24 Hours (Table) 03/28/22 03/28/22 03/28/22 Range/Units 07:48 07:48 09:22 RBC 6.75 H 6.75 H (4.30-5.90) m/uL Hct 54.0 H 54.3 H (39.0-53.0) % MCH 23.0 L 23.3 L (25.0-35.0) pg MCHC 28.7 L 28.9 L (31.0-37.0) g/dL RDW 18.6 H 18.6 H (11.5-15.5) % Lymphocytes # 0.9 L 0.7 L (1.0-4.8) k/uL Sodium 135 L (137-145) mmol/L Chloride 94 L (98-107) mmol/L Carbon Dioxide (22-30) mmol/L BUN 44 H (9-20) mg/dL Creatinine 1.83 H (0.66-1.25) mg/dL Calcium 13.4 H* (8.4-10.2) mg/dL Ionized Calcium Young (4.5-5.3) mg/dL Total Protein (6.3-8.2) g/dL 03/28/22 Range/Units 09:22 RBC (4.30-5.90) m/uL Hct (39.0-53.0) % MCH (25.0-35.0) pg MCHC (31.0-37.0) g/dL RDW (11.5-15.5) % Lymphocytes # (1.0-4.8) k/uL Sodium 135 L (137-145) mmol/L Chloride 93 L (98-107) mmol/L Carbon Dioxide 34 H (22-30) mmol/L BUN 44 H (9-20) mg/dL Creatinine 1.90 H (0.66-1.25) mg/dL Calcium 13.4 H* (8.4-10.2) mg/dL Ionized Calcium Young 7.0 H* (4.5-5.3) mg/dL Total Protein 6.1 L (6.3-8.2) g/dL
[2022-03-29] MEDS: DEXAMETHASONE SOD PHOS (MDV) 100 MG/10 ML VIAL IVP SCH (19:36)
[2022-03-29 20:22] LABS: Glucose,Whole Blood 75 mg/dL (70-110)
[2022-03-29] MEDS: PARoxetine 20 MG TAB PO SCH (21:00)
[2022-03-30] MEDS: HYDROmorphone 1 MG/ML 1 ML SYRINGE IVP PRN ×5 (03:01→21:09)
[2022-03-30 06:02] LABS: Glucose,Whole Blood 71 mg/dL (70-110)
[2022-03-30] MEDS: DEXTROSE 10% IN WATER 500 ML in EMPTY BAG 1 BAG IV SCH (06:32)
[2022-03-30] MEDS: SODIUM CHLORIDE 0.9% 1,000 ML IV SCH (06:44)
[2022-03-30 08:22] LABS: Albumin 3.7 g/dL (3.5-5.0); Calcium 11.6 mg/dL (8.4-10.2); Magnesium 1.8 mg/dL (1.6-2.3); Phosphorus 2.7 mg/dL (2.5-4.5); Potassium 3.8 mmol/L (3.5-5.1); Total Bilirubin 1.1 mg/dL (0.2-1.3); Total Protein 5.7 g/dL (6.3-8.2)
[2022-03-30] MEDS: IPRATROPIUM 0.5 MG/2.5 ML NEBU INHALATION SCH ×4 (08:28→19:10)
[2022-03-30] MEDS: SYMBICORT 80-4.5 MCG INHALER INHALATION SCH ×2 (08:28→19:11)
--- NOTE | 2022-03-30 10:21 | P.PN ---
Subjective Patient is seen for follow-up for acute kidney injury, associated with NSAIDs, hypercalcemia and hypovolemia. Hypercalcemia is secondary to underlying lymphoma Serum creatinine had increased to 1.9 and it is down to 1.6 today Patient received multiple doses of pamidronate. Oxygen requirement increased with 9 L currently CODE STATUS was discussed with the patient and he chooses to continue with aggressive care. Started on gentle IV hydration . O2 requirements are about the same. Chest x- ray shows pulmonary vascular congestion with pleural effusions but patient's respiratory status is currently stable and renal function is improving with IV hydration. Calcium is also improved. Chest x-ray findings may be related to underlying lymphoma as well. Objective - Vital Signs Vital signs: Vital Signs Temp 97.6 F 03/30/22 03:00 Pulse 96 03/30/22 03:00 Resp 18 03/30/22 03:00 BP 128/71 03/30/22 03:00 Pulse Ox 95 03/30/22 03:00 FiO2 50 03/26/22 08:39 Intake & Output 03/29/22 03/30/22 03/30/22 18:59 06:59 18:59 Intake Total 580 1200 0 Balance 580 1200 0 Weight 55 kg Intake: IV 580 Dextrose 10% in Water 500 160 ml In Empty Bag 1 bag @ 20 mls/hr IV .Q24H [facility] Rx #:[id number] Invasive Line 3 20 Sodium Chloride 0.9% 1, 400 000 ml @ 50 mls/hr IV . Q20H [facility] Rx#:[id number] Intake, IV Titration 600 Amount Dextrose 10% in Water 500 240 ml In Empty Bag 1 bag @ 20 mls/hr IV .Q24H [facility] Rx #:[id number] Sodium Chloride 0.9% 1, 360 000 ml @ 50 mls/hr IV . Q20H [facility] Rx#:[id number] Oral 0 600 0 Other: Voiding Method Diaper Diaper # Voids 3 - Exam Patient is lethargic, arousable, comfortable, not in any acute distress Confused. Needing a sitter as he has been pulling on IVs and trying to get out of bed. Examination of the heart S1 and S2 Examination lungs shows decreased breath sounds at the bases Abdomen is soft nontender Examination of the lower extremity shows no significant edema - Labs CBC & Chem 7: 03/29/22 08:41 03/30/22 07:17 Labs: Abnormal Lab Results - Last 24 Hours (Table) 03/29/22 03/29/22 03/29/22 Range/Units 08:41 08:41 11:47 RBC 6.81 H (4.30-5.90) m/uL Hct 54.6 H (39.0-53.0) % MCH 23.1 L (25.0-35.0) pg MCHC 28.8 L (31.0-37.0) g/dL RDW 18.4 H (11.5-15.5) % Lymphocytes # 0.9 L (1.0-4.8) k/uL Carbon Dioxide (22-30) mmol/L BUN (9-20) mg/dL Creatinine (0.66-1.25) mg/dL Glucose (74-99) mg/dL POC Glucose (mg/dL) 68 L (70-110) mg/dL Calcium (8.4-10.2) mg/dL Ionized Calcium Young 6.9 H* (4.5-5.3) mg/dL Total Protein (6.3-8.2) g/dL 03/29/22 03/30/22 Range/Units 12:02 07:17 RBC (4.30-5.90) m/uL Hct (39.0-53.0) % MCH (25.0-35.0) pg MCHC (31.0-37.0) g/dL RDW (11.5-15.5) % Lymphocytes # (1.0-4.8) k/uL Carbon Dioxide 32 H (22-30) mmol/L BUN 45 H (9-20) mg/dL Creatinine 1.62 H (0.66-1.25) mg/dL Glucose 69 L (74-99) mg/dL POC Glucose (mg/dL) 183 H (70-110) mg/dL Calcium 11.6 H (8.4-10.2) mg/dL Ionized Calcium Young (4.5-5.3) mg/dL Total Protein 5.7 L (6.3-8.2) g/dL Assessment and Plan Assessment: 1. Acute kidney injury secondary to NSAIDs, hypercalcemia. Serum creatinine had improved to 1.3 from 1.7 on admission, but increased again secondary to worsening hypercalcemia and diuresis. UA is benign. No evidence of obstruction on CAT scan. Currently off of diuretics and started on gentle IV hydration. Chest x-ray shows bilateral pulmonary infiltrates suggestive of pulmonary vascular congestion however patient's respiratory status is currently stable. 2. CK D stage III a with baseline creatinine 1.2-1.3 secondary to nephrosclerosis 3. Hypercalcemia associated with lymphoma with elevated one 25-hydroxy vitamin D level at 98 and low PTH. Status post Aredia multiple times 4. History of CLL 5. Metabolic acidosis associated with acute kidney injury and IV fluids, status post by mouth bicarb 6. Volume overload currently on IV Lasix, improved 7. Hyperuricemia questionable tumor lysis status post rasburicase 8. Left perinephric/retroperitoneal soft tissue mass likely related to the lym phoma with worsening lymphadenopathy noted on the CT status post biopsy, awaiting pathology results. Oncology feels there is a possible high cure rate Plan: Continue gentle IV hydration Await pathology results Monitor electrolytes and renal function Avoid nephrotoxic agents
[2022-03-30] MEDS: polyethylene glycoL 3350 17 GM POWD.PACK PO SCH (10:34)
[2022-03-30] MEDS: MEGESTROL 400 MG/10 ML CUP PO SCH (10:34)
[2022-03-30] MEDS: GABAPENTIN 100 MG CAP PO SCH ×2 (10:34→22:36)
[2022-03-30] MEDS: SENNOSIDES-DOCUSATE SODIUM 1 EACH TAB PO SCH ×2 (10:35→22:36)
[2022-03-30] MEDS: bisacodyL 10 MG SUPP RECTAL PRN (10:46)
[2022-03-30] MEDS: PANTOPRAZOLE 40 MG/10 ML VIAL IVP SCH ×2 (10:46→21:05)
[2022-03-30 10:49] LABS: INR 3.8 (<1.2); Prothrombin Time 37.5 sec (9.0-12.0)
[2022-03-30 11:53] LABS: Glucose,Whole Blood 73 mg/dL (70-110)
[2022-03-30] MEDS ORDERED: MVI, ADULT NO.4 WITH VIT K 10 ML, TRACE (CONC-1ML/DOSE) 1 ML, SODIUM ACETATE 30 MEQ, PO... IV SCH ×7 (12:00)
[2022-03-30] MEDS ORDERED: HYDROmorphone 1 MG/ML 1 ML SYRINGE IVP STA (14:25)
[2022-03-30] MEDS: DEXAMETHASONE SOD PHOS (MDV) 100 MG/10 ML VIAL IVP SCH ×2 (14:36→17:34)
--- NOTE | 2022-03-30 15:04 | P.PN ---
Subjective Progress Note Date: 03/30/22 Principal diagnosis: Renal mass The patient is a 61-year-old male patient, known history of CLL on Calquence, chronic kidney stage III, COPD. He presented to the [facility] on 03/18/22 with abdominal pain has been going on for few weeks with progressive worsening over the past fe w days. Patient is nauseous but no vomiting. No hematemesis. No hematuria. Patient was taken [id number] naproxen and ibuprofen for his pain control for the past few days. He stated that he was supposed to follow-up with Dr. Faulkner from oncology last month but he canceled his appointment. Patient has a chronic exertional dyspnea, but it seems to be worsening. He is known to have COPD maintained on 3L home O2, and a combination of Advair and Spiriva on outpatient basis. He also carries a diagnosis of CLL that was followed up by Dr. Faulkner. He is known to have extensive lymphadenopathy related to his CLL. Based on the most recent oncology evaluation, there has been progression his CLL based on progression his lymphadenopathy. In the [facility], the patient was found to have a coagulation profile was abnormal, and the patient has been quite neuropathic even prior admissions. An abdominal CT of the abdomen and pelvis was done and it showed a left perinephric/retroperitoneal soft tissue density which is either a mass versus hematoma and this was not present on previous evaluation or there has been probably a subtle finding in 2020. There is also overall worsening in the lymphadenopathy about the abdomen and ascending into the mediastinum with splenomegaly. The patient also had small bilateral pleural effusions L>R. Abdominal ultrasound was then completed revealing a left perinephritic complex vascular mass, recommending further evaluation with MRI. MRI with and without contrast revealed large posterior perinephrotic mass with massive retroperitoneal adenopathy and massive splenomegaly. Oncology consulted interventional radiology to perform biopsy of renal mass. I NR remains elevated, unable to complete biopsy until INR has improved. Patient given vitamin K. On 03/23/22, patient was found to be hypoxic and had increasing oxygen needs. Repeat x-ray revealed increasing left lower lobe effusion. Pulmonology re-consulted at this time for evaluation. On 03/25/22 ultrasound of chest was completed which revealed an 11.8 cm pleural effusion pocket. Patient will likely need to undergo thoracentesis. However, INR still remains elevated at this time despite receiving multiple doses of Vitamin K. Oncology and interventional radiology continue to follow. The patient will also undergo biopsy of renal mass. Both the thoracentesis and the renal biopsy is on hold until the patient's INR is less than 1.5. 03/26 The patient was lethargic during examination. He was confused and unable to follow a conversation fully. He did state he still has lower left quadrant pain, but it is mild and much better today. He received Dilaudid prior to examination. Spoke with the patient's nephew, Dejon, via telephone. He states he is the patient's next of kin and would like to be updated regularly. He was told the patient's procedures are still on hold because his blood is too thin despite the vitamin K that was given. Awaiting oncology's recommendations. Dejon has never had conversations with the patient regarding his goals of care or wishes. Code status discussed at length. Dejon would like to wait for the renal biopsy and the thoracentesis before deciding on a plan of care moving forward. He would like the patient to remain a full code. 03/27 The patient is lying in bed and appears uncomfortable. He c/o LLQ pain. No family present at time of examination. Patient still slightly confused and has garbled speech.The patient's Fentanyl patch was discontinued yesterday. Per RN, the patient was barely responsive and Narcan had to be administered. Low d ose Jackson ATC was added to pain regimen in attempt to keep pain more controlled. Dilaudid IV still available prn for severe pain. Discussed pain medication plan with RN, requested she call with any issues. Patient will likely need anther adjustment in pain medication. The patient denies any nausea. He states he has not been eating much due to a loss of appetite. Wanda added. The patient is currently on 9L NC with slightly labored breathing. SPO2 94%. Awaiting pulmonary to determine if patient will be able to have a thoracentesis today, INR 3.3 today despite receiving vitamin K. 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 Oncology has left message for IR as a biopsy for possible transformation of CLL is needed and per their message Saturday was holding off related to coagulopathy. Returned to patient's bedside to reassess pain. The patient woke up easily. He was a little confused as to where he was and what was going on. He reoriented easily. He stated his pain was "ok". The patient's nephew was present. Education was provided regarding the underlying conditions and poor prognosis. Code status was also addressed again. The patient's nephew is unsure about what to do. He would like to take some time to talk with the patient and his family. The patient is to remain a full code for now. The pulmonary service feels given the patients high INR, a thoracentesis would not be safe at this time. They do not feel like he would tolerate the procedure well. A lymph node biopsy is scheduled to be done later this afternoon. 03/28 The patient is lethargic, but awakens easily. He c/o abdominal pain. Jackson dose increased to 7.5/325mg. The patient is very weak and debilitated. Code status addressed with patient who stated "I don't know". He is confused and unable to follow a conversation fully. His insight and judgment is not intact at this time. Spoke to oncology LAST PULLER via telephone. She is hoping the retroperitoneal mass biopsy results come back tomorrow. She stated if his lymphoma has transformed to [place], it is very treatable and even considered curable. Updated the patient's nephew (DPOA), Dejon, via telephone. He is agreea ble in waiting for biopsy results before considering hospice. However, Dejon did agree to make the patient a DNR. 03/29 The patient was able to tell me he is in the hospital, the correct year, and his last name. He is lethargic, but wakens easily. Patient was receiving IV Dilaudid approximately every 2 hours despite scheduled Jackson. Pain regimen changed to a low dose Fentanyl patch, and Jackson and Dilaudid prn. Awaiting biopsy results for plan of care. Patient's nephew updated. Objective - Vital Signs Vital signs: Vital Signs Temp 97.6 F 03/30/22 03:00 Pulse 96 03/30/22 03:00 Resp 18 03/30/22 03:00 BP 128/71 03/30/22 03:00 Pulse Ox 95 03/30/22 03:00 FiO2 50 03/26/22 08:39 Intake & Output 03/29/22 03/30/2222 18:59 06:59 18:59 Intake Total 580 1200 Balance 580 1200 Weight 55 kg Intake: IV 580 Dextrose 10% in Water 500 160 ml In Empty Bag 1 bag @ 20 mls/hr IV .Q24H [facility] Rx #:[id number] Invasive Line 3 20 Sodium Chloride 0.9% 1, 400 000 ml @ 50 mls/hr IV . Q20H [facility] Rx#:[id number] Intake, IV Titration 600 Amount Dextrose 10% in Water 500 240 ml In Empty Bag 1 bag @ 20 mls/hr IV .Q24H [facility] Rx #:[id number] Sodium Chloride 0.9% 1, 360 000 ml @ 50 mls/hr IV . Q20H [facility] Rx#:[id number] Oral 0 600 Other: Voiding Method Diaper Diaper # Voids 3 - Exam General: Patient lethargic. No acute distress. Appears frail, cachectic, and older than stated age. HEENT: Head is atraumatic, normocephalic Sclerae are clear. Pupils equal, round and reactive to light bilaterally. CV: Heart regular in rate and rhythm positive S1 and S2. No clicks, rubs or murmurs. Peripheral pulses equal. 2/4 Lungs: Diminished bilateral bases. No wheezes rales or rhonchi. Respirations e whitney and slightly labored. 9L NC Abdomen/GI: Soft. Bowel sounds present in all 4 quadrants. Bowel sounds normoactive. + abdominal tenderness. Musculoskeletal/ Extremities: DENNIS, + generalized weakness and muscle wasting Vascular: Radial pulses equal. 2/4. Skin: Warm and dry. No rash. Neurologic: Oriented times 2-3, confused and mumbles words. Follows commands. Psychiatric: Flat affect - Labs CBC & Chem 7: 03/29/22 08:41 03/30/22 07:17 Labs: Abnormal Lab Results - Last 24 Hours (Table) 03/29/22 03/29/22 03/29/22 Range/Units 08:41 08:41 08:41 RBC 6.81 H (4.30-5.90) m/uL Hct 54.6 H (39.0-53.0) % MCH 23.1 L (25.0-35.0) pg MCHC 28.8 L (31.0-37.0) g/dL RDW 18.4 H (11.5-15.5) % Lymphocytes # 0.9 L (1.0-4.8) k/uL PT 31.9 H (9.0-12.0) sec INR 3.2 H (<1.2) Sodium 135 L (137-145) mmol/L Chloride 95 L (98-107) mmol/L Carbon Dioxide (22-30) mmol/L BUN 51 H (9-20) mg/dL Creatinine 1.76 H (0.66-1.25) mg/dL Glucose 70 L (74-99) mg/dL POC Glucose (mg/dL) (70-110) mg/dL Uric Acid 12.7 H (3.5-8.5) mg/dL Calcium 12.8 H (8.4-10.2) mg/dL Ionized Calcium Young 6.9 H* (4.5-5.3) mg/dL Total Protein 6.1 L (6.3-8.2) g/dL 03/29/22 03/29/22 03/30/22 Range/Units 11:47 12:02 07:17 RBC (4.30-5.90) m/uL Hct (39.0-53.0) % MCH (25.0-35.0) pg MCHC (31.0-37.0) g/dL RDW (11.5-15.5) % Lymphocytes # (1.0-4.8) k/uL PT (9.0-12.0) sec INR (<1.2) Sodium (137-145) mmol/L Chloride (98-107) mmol/L Carbon Dioxide 32 H (22-30) mmol/L BUN 45 H (9-20) mg/dL Creatinine 1.62 H (0.66-1.25) mg/dL Glucose 69 L (74-99) mg/dL POC Glucose (mg/dL) 68 L 183 H (70-110) mg/dL Uric Acid (3.5-8.5) mg/dL Calcium 11.6 H (8.4-10.2) mg/dL Ionized Calcium Young (4.5-5.3) mg/dL Total Protein 5.7 L (6.3-8.2) g/dL Assessment and Plan Assessment: Symptoms * Pain - 4/10 LLQ pain. continue Tyleonl and Neurotin, and low dose Fentanyl patch, Jackson and Dilaudid available prn for breakthrough pain * Fatigue - Generalized weakness and fatigue, awaiting Picc line for TPN * SOB - Yes - chronic dyspnea on exertion, Continue Symbicort, Albuterol, Atrovent and Lasix. On 9L NC. Thoracentesis when INR below 1.5. * Insomnia - Occasional, Continue Melatonin prn * N/V - Occasional nausea, Continue Zofran prn * Anxiety - Yes, continue Ativan and Klonopin * Depression - No, Continue Paxil * Confusion - Yes * Agitation - Occasional, especially at night or with poor pain control * Hallucinations - No * Appetite/weight loss - + loss of appetite and recent weight loss, encourage PO intake, continue with regular diet and ensure TIDWM and magic cups. Continue Megace. Awaiting PICC line pacement to start TPN * Dysphagia - No * Constipation - LBM 03/28 x 2. Continue Senokot -s and Miralax daily. Dulcolax suppository prn. * Incontinence - Yes, has brie on * Itch - No Plan: Summary/Goals - Patient resting in bed with eyes closed, no distress noted. Awakens easily to verbal stimulus. Stated he is "alright", and his pain is "ok" right now. Patient safety investigator at bedside. Patient's nephew and sister is at the bedside. They stated they came early in hopes of talking to some of the physicians, especially oncology. Contacted oncology in attempt of getting a time frame for their patient rounds the family. LAST PULL[facility] stated they are in the clinic this morning and will start rounding approximately 1300. Family awaiting biopsy results to make decisions moving forward, hospice vs. aggressive treatment. They have multiple questions regarding treatment if the patient's lymphoma has in fact transformed to Ruffin's. Plans in place for PICC line placement and TPN. Education provided regarding pain medication regimen. They agree patient appears comfortable. 1500 Family awaiting oncology for update. Patient going to IR for PICC line placement. Spoke to RN and family, asked them to call if any questions or concerns. There is no palliative care coverage over the weekend. Family given personal cell phone number to call if needed. Advanced Directives - No, none on file Code Status - DNR Thank you for this consult Antonella Paz [facility] Palliative Care [facility] [id number] Email: [email or web address] Time with Patient: Greater than 30
[2022-03-30] MEDS ORDERED: LIDOCAINE 1% INJ 10MG/ML (5 ML VIAL-PF) SQ ONE (15:22)
--- NOTE | 2022-03-30 15:57 | IR ---
EXAMINATION TYPE: IR cvc insert >=5 years DATE OF EXAM: 03/30/2022 COMPARISON: NONE CLINICAL HISTORY: Metastatic disease Needs long-term intravenous access for therapy. PROCEDURE: Hand hygiene obtained with soap and water and alcohol-based hand rub. After informed consent, the skin overlying the right basilic vein was localized with ultrasound and n oted to be compressible and patent. An ultrasound image was obtained and submitted on the patient's chart. The overlying skin was prepped and draped and Lidocaine was used for local anesthesia. A ski n parker was made with a scalpel. Access was gained to the vein under ultrasound guidance with a 21 ga uge needle and a 0.018 inch wire was advanced. Access site was dilated with Peel-Away sheath and cat heter tailored to the appropriate length and advanced such that the distal tip is at the cavoatrial j unction. Spot image was obtained verifying placement. Catheter was fixed to the skin and a sterile dressing was placed following hemostasis. Catheter was aspirated and flushed with saline. Patient w as discharged in stable condition without complication. Maximal barrier technique is utilized. Ultra sound image is documented on the chart. Ultrasound used with sterile technique. Fluoro time and fluoroscopic images submitted to document procedure: 200 intraoperative C-arm images, 1.1 minutes fluoroscopy time IMPRESSION: STATUS POST ULTRASOUND AND FLUOROSCOPIC GUIDED PICC LINE PLACEMENT, READY FOR USE. THIS PROCEDURE WAS PERFORMED BY THE UNDERSIGNED.
[2022-03-30] MEDS ORDERED: DEXTROSE 50% SYRINGE 50 ML IVP ONE (16:36)
[2022-03-30 16:37] LABS: Glucose,Whole Blood 69 mg/dL (70-110)
[2022-03-30] MEDS: LEVOFLOXACIN 250 MG TAB PO SCH (16:52)
[2022-03-30 17:00] LABS: Glucose,Whole Blood 297 mg/dL (70-110)
--- NOTE | 2022-03-30 17:05 | P.PN ---
Subjective Progress Note Date: 03/30/22 Hospital course: Patient is a very pleasant 61-year-old male with a past medical history of CLL on [place], chronic kidney stage III, and COPD. He presented to the emergency department on 03/18/22 with a chief complaint of left flank pain. Patient reported this pain began approximately a few weeks ago and significantly worsened over the past few days. He reported the pain still left flank and was accompanied by nausea. He underwent full evaluation in the emergency department. He was found to have significant leukocytosis with WBC count of 18.9 and an acute kidney injury with BUN 26, creatinine 1.72, and GFR 41. Urinalysis was negative for blood, protein, or infection. Covid PCR negative. CT abdomen and pelvis revealed a left perinephritic/retroperitoneal soft tissue suspicious for mass with overall worsening of previously known lymphadenopathy throughout the abdomen and ascending into the mediastinum with persistent splenomegaly consistent with his prior history of lymphoma along with increase and bilateral pleural effusions with left greater than right. Patient was admitted under our services with consultation to oncology, vascular surgery, nephrology, and urology. Abdominal ultrasound was completed revealing a left perinephritic complex vascular mass, recommending further evaluation with MRI. MRI with and without contrast revealed large posterior perinephrotic mass with massive retroperitoneal adenopathy and massive splenomegaly. Oncology consulted interventional radiology to perform biopsy of renal mass. INR remains elevated, unable to complete biopsy until INR has improved. Patient given vitamin K. On 03/23/22, patient was found to be hypoxic and had increasing oxygen needs. Repeat x-ray revealed increasing left lower lobe effusion. Pulmonology re-consulted at this time for evaluation. On 03/25/22 ultrasound of chest was completed which revealed an 11.8 cm pleural effusion pocket. Patient will likely need to u ndergo thoracentesis, however due to persistently elevated INR it is deemed unsafe to perform at this time. Patient currently on palliative care and underwent renal mass biopsy on 03/27/22 and has been started on high-dose steroids by hematology/oncology team with plans to start chemotherapy on , 04/03/22. Physical exam: Pt seen and fully evaluated at bedside this morning, patient more awake than he was yesterday and upon physical examination he was alert and oriented to person, place, time, and situation and was answering questions appropriately. Patient did have reported fall yesterday evening and a CT head was ordered secondary to patient's chronically elevated INR. Per nursing staff patient was unable to tolerate head CT as he was unable to remain still throughout exam and would not complete. Patient still has no appetite and has not been eating. Order was placed for PICC line to be inserted yesterday for needed TPN as well as ch emotherapy that is reported to began on Saturday04/03/22. Palate of care following. Vital signs reviewed and stable. General: Nontoxic, no distress and appears stated age. Thin, malnourished. Derm: Skin warm and dry, normal coloration for ethnicity. Head: Atraumatic, normocephalic and symmetric. Eyes: EOMs intact, no lid lag, and anicteric sclera Mouth: no lip lesions, mucus membranes moist Cardiovascular: regular rate and rhythm with normal S1S2, no murmur, positive posterior tibial pulses bilaterally, and cap refill < 2 seconds. Lungs: Respirations even, regular, and unlabored on 11 L O2 via venturi mask with FiO2 of 50%. Lungs diminished no rhonchi, rales, wheezes or crackles pre sent, and no accessory muscle usage. Abdominal: soft, Bowel sounds 4 quadrants. Ext:No gross muscle atrophy, no edema, no contractures. Patient withdraws from pain. Neuro/Psych: Alert and oriented, GCS 15. No neurological deficits noted Assessment and Plan of Care: CLL Left perinephric complex mass status post biopsy on 03/27/22 Massive splenomegaly -MRI with and without contrast revealed large posterior perinephrotic mass with massive retroperitoneal adenopathy and massive splenomegaly. -Pain control with IV Dilaudid and oncology added on fentanyl patch -Hematology/oncology following, started patient on high-dose steroids 4 days with plans to begin dose of chemotherapy on 04/03/22. KEERTHI on CKD Hypercalcemia secondary to underlying lymphoma -Nephrology following, appreciate recommendations -Continue with IV fluid hydration Acute respiratory failure with hypoxia secondary to increasing left pleural effusion -Ultrasound chest completed revealing an 11.8 cm pleural effusion pocket -Pulmonology following, recommending patient undergo thoracentesis, however due to persistently elevated INR it is deemed unsafe to perform at this time. -Continue with oxygen supplementation to maintain SpO2 equal to or greater than 90%. Chronic coagulopathy Chronic anemia of chronic disease Lupus anticogulant -Secondary to CLL, hematology/oncology following. Hypomagnesemia, replaced COPD without acute exacerbation -Continue Symbicort 2 puffs twice daily along with PRN nebulizer treatments for shortness of breath and/or wheezing. CODE STATUS: Full code DVT prophylaxis: SCDs Discussed with: Patient, pulmonary and RN Anticipated discharge date: Clinical course to determine Anticipated discharge place: Clinical course to determine A total of 37 minutes was spent on the care of this complex patient more than 50% of the time was spent in counseling and care coordination. I reviewed the documentation as provided by the CAYLA above, who is the original author of this note. I agree with the documented assessment and plan, with the following changes: none Objective - Vital Signs Vital signs: Vital Signs Temp 97.6 F 03/30/22 03:00 Pulse 96 03/30/22 03:00 Resp 18 03/30/22 03:00 BP 128/71 03/30/22 03:00 Pulse Ox 95 03/30/22 03:00 FiO2 50 03/26/22 08:39 Intake & Output 03/29/22 03/30/22 03/30/22 18:59 06:59 18:59 Intake Total 580 1200 Balance 580 1200 Weight 55 kg Intake: IV 580 Dextrose 10% in Water 500 160 ml In Empty Bag 1 bag @ 20 mls/hr IV .Q24H [facility] Rx #:[id number] Invasive Line 3 20 Sodium Chloride 0.9% 1, 400 000 ml @ 50 mls/hr IV . Q20H [facility] Rx#:[id number] Intake, IV Titration 600 Amount Dextrose 10% in Water 500 240 ml In Empty Bag 1 bag @ 20 mls/hr IV .Q24H [facility] Rx #:[id number] Sodium Chloride 0.9% 1, 360 000 ml @ 50 mls/hr IV . Q20H [facility] Rx#:[id number] Oral 0 600 Other: Voiding Method Diaper Diaper # Voids 3 - Labs CBC & Chem 7: 03/29/22 08:41 03/30/22 07:17 Labs: Abnormal Lab Results - Last 24 Hours (Table) 03/29/22 03/29/22 03/29/22 Range/Units 08:41 08:41 08:41 RBC 6.81 H (4.30-5.90) m/uL Hct 54.6 H (39.0-53.0) % MCH 23.1 L (25.0-35.0) pg MCHC 28.8 L (31.0-37.0) g/dL RDW 18.4 H (11.5-15.5) % Lymphocytes # 0.9 L (1.0-4.8) k/uL PT 31.9 H (9.0-12.0) sec INR 3.2 H (<1.2) Sodium 135 L (137-145) mmol/L Chloride 95 L (98-107) mmol/L Carbon Dioxide (22-30) mmol/L BUN 51 H (9-20) mg/dL Creatinine 1.76 H (0.66-1.25) mg/dL Glucose 70 L (74-99) mg/dL POC Glucose (mg/dL) (70-110) mg/dL Uric Acid 12.7 H (3.5-8.5) mg/dL Calcium 12.8 H (8.4-10.2) mg/dL Ionized Calcium Young 6.9 H* (4.5-5.3) mg/dL Total Protein 6.1 L (6.3-8.2) g/dL 03/29/22 03/29/22 03/30/22 Range/Units 11:47 12:02 07:17 RBC (4.30-5.90) m/uL Hct (39.0-53.0) % MCH (25.0-35.0) pg MCHC (31.0-37.0) g/dL RDW (11.5-15.5) % Lymphocytes # (1.0-4.8) k/uL PT (9.0-12.0) sec INR (<1.2) Sodium (137-145) mmol/L Chloride (98-107) mmol/L Carbon Dioxide 32 H (22-30) mmol/L BUN 45 H (9-20) mg/dL Creatinine 1.62 H (0.66-1.25) mg/dL Glucose 69 L (74-99) mg/dL POC Glucose (mg/dL) 68 L 183 H (70-110) mg/dL Uric Acid (3.5-8.5) mg/dL Calcium 11.6 H (8.4-10.2) mg/dL Ionized Calcium Young (4.5-5.3) mg/dL Total Protein 5.7 L (6.3-8.2) g/dL
[2022-03-30] MEDS ORDERED: MVI, ADULT NO.4 WITH VIT K 10 ML, TRACE (CONC-1ML/DOSE) 1 ML, SODIUM CHLORIDE 4MEQ/ML V... IV SCH ×7 (18:00)
[2022-03-30] MEDS ORDERED: FAT EMULSION 20% 500 ML in EMPTY BAG 1 BAG IV SCH (18:00)
[2022-03-30 20:08] LABS: Glucose,Whole Blood 87 mg/dL (70-110)
[2022-03-30] MEDS: PARoxetine 20 MG TAB PO SCH (22:36)
[2022-03-30] MEDS: HYDROcodone/APAP 7.5-325MG 1 EACH TAB PO PRN (22:48)
[2022-03-30] MEDS: clonazePAM 0.5 MG TAB PO PRN (22:48)
[2022-03-31 00:05] LABS: Glucose,Whole Blood 156 mg/dL (70-110)
--- NOTE | 2022-03-31 00:16 | P.PN ---
Subjective Progress Note Date: 03/30/22 patient continues to have significant generalized weakness. He still confused. However he was awakened time of my evaluation, although with slowed affect and responses. Objective - Vital Signs Vital signs: Vital Signs Temp 97.1 F L 03/30/22 23:31 Pulse 92 03/30/22 19:21 Resp 20 03/30/22 23:31 BP 138/71 03/30/22 23:31 Pulse Ox 94 L 03/30/22 23:31 FiO2 50 03/26/22 08:39 Intake & Output 03/30/22 03/30/22 03/31/22 06:59 18:59 06:59 Intake Total 1200 40 120 Balance 1200 40 120 Weight 55 kg Intake: IV 20 Invasive Line 5 20 Intake, IV Titration 600 Amount Dextrose 10% in Water 500 240 ml In Empty Bag 1 bag @ 20 mls/hr IV .Q24H [facility] Rx #:[id number] Sodium Chloride 0.9% 1, 360 000 ml @ 50 mls/hr IV . Q20H [facility] Rx#:[id number] Oral 600 20 120 Other: Voiding Method Diaper Diaper # Voids 3 1 1 - Constitutional General appearance: Present: no acute distress - EENT Eyes: Present: EOMI ENT: Present: hearing grossly normal, normal oropharynx - Respiratory Respiratory: bilateral: CTA - Cardiovascular Rhythm: regular - Psychiatric Psychiatric Comment(s): confused. Slow affect and responses - Labs CBC & Chem 7: 03/29/22 08:41 03/30/22 07:17 Labs: Abnormal Lab Results - Last 24 Hours (Table) 03/30/22 03/30/22 03/30/22 Range/Units 07:17 10:33 16:22 PT 37.5 H (9.0-12.0) sec INR 3.8 H (<1.2) Carbon Dioxide 32 H (22-30) mmol/L BUN 45 H (9-20) mg/dL Creatinine 1.62 H (0.66-1.25) mg/dL Glucose 69 L (74-99) mg/dL POC Glucose (mg/dL) 69 L (70-110) mg/dL Calcium 11.6 H (8.4-10.2) mg/dL Total Protein 5.7 L (6.3-8.2) g/dL Triglycerides 303.00 H (0.00-149.00) mg/dL 03/30/22 Range/Units 16:42 PT (9.0-12.0) sec INR (<1.2) Carbon Dioxide (22-30) mmol/L BUN (9-20) mg/dL Creatinine (0.66-1.25) mg/dL Glucose (74-99) mg/dL POC Glucose (mg/dL) 297 H (70-110) mg/dL Calcium (8.4-10.2) mg/dL Total Protein (6.3-8.2) g/dL Triglycerides (0.00-149.00) mg/dL Assessment and Plan (1) Left kidney mass Narrative/Plan: the patient is status post kidney biopsy. He continues to do poorly overall at this time. he is status post biopsy with results pending. Case was discussed with pathology confirmed adequate sample. This has been sent to Hematopathogy at [facility]. - I had a long discussion with multiple family members and the patient. They were advised that clinically the patient is more likely to either progressive CLL, or transformation to a more aggressive lymphoproliferative malignancy subtype, with the latter being favored. You malignancy is also possible, but much less likely. - As most of lymphoproliferative malignancies are very treatable, but, specifically fast responses to treatment, it would be reasonable to continue aggressive supportive care with plan for active treatment, assuming pathology confirms a treatable. I'll awaiting the final pathology to decide for definitive regimen, it was recommended that the patient be treated with high- dose Decadron bolus, which is a standard regimen, with the potential for cytotoxicity to a broad range of lymphoproliferative malignancies, and thus potential for improving. His current performance status. - The rationale for the same was discussed in detail. It was again reiterated the rationale for recommending continued aggressive supportive measures was the potential for the strong as well as rapid responsiveness to treatment in case of lymphoproliferative malignancy. - The family were concerned about his ability to withstand treatment. They were advised that if the pathology showed a new, hard to treat malignancy, or a very aggressive lymphoid malignancy, requiring very high-dose regimens, it would be very reasonable to consider comfort care. In addition, the patient continued to decline, while on bolus Decadron, it would also be recommended to consider the same. - They had multiple questions which were answered in detail - at this time, they have decided to continue current aggressive medical management, including addition of bolus Decadron. The patient is status post PICC line placement, and TPN has been ordered. Continue to monitor and await pathology. Once pathology is finalized, prognosis, and appropriate management options will be discussed with the patient and family. - . We also discussed that given his current performance status, it would be very reasonable to consider no code no CPR, while continuing aggressive medical management. the rationale for the same was discussed in detail. They are agreeable, and orders will be placed. Current Visit: Yes Status: Acute Code(s): N28.89 - OTHER SPECIFIED DISORDERS OF KIDNEY AND URETER SNOMED Code(s): 177291055
[2022-03-31] MEDS: HYDROmorphone 1 MG/ML 1 ML SYRINGE IVP PRN ×7 (00:44→22:46)
[2022-03-31] MEDS: LORazepam 0.5 MG TAB PO PRN ×2 (03:09→22:47)
[2022-03-31] MEDS: SODIUM CHLORIDE 0.9% 1,000 ML IV SCH ×2 (04:12→23:19)
[2022-03-31] MEDS: HYDROcodone/APAP 7.5-325MG 1 EACH TAB PO PRN ×2 (05:35→20:01)
[2022-03-31 06:05] LABS: Glucose,Whole Blood 131 mg/dL (70-110)
[2022-03-31] MEDS: SYMBICORT 80-4.5 MCG INHALER INHALATION SCH ×2 (08:00→19:46)
[2022-03-31] MEDS: IPRATROPIUM 0.5 MG/2.5 ML NEBU INHALATION SCH ×4 (08:00→19:46)
[2022-03-31 08:30] LABS: Albumin 3.9 g/dL (3.5-5.0); Calcium 10.8 mg/dL (8.4-10.2); Magnesium 1.7 mg/dL (1.6-2.3); Phosphorus 3.2 mg/dL (2.5-4.5); Potassium 4.6 mmol/L (3.5-5.1); Total Bilirubin 1.2 mg/dL (0.2-1.3); Total Protein 6.1 g/dL (6.3-8.2)
[2022-03-31] MEDS: DEXAMETHASONE SOD PHOS (MDV) 100 MG/10 ML VIAL IVP SCH (09:08)
[2022-03-31] MEDS: GABAPENTIN 100 MG CAP PO SCH ×2 (09:37→21:18)
[2022-03-31] MEDS: DEXTROSE 10% IN WATER 500 ML in EMPTY BAG 1 BAG IV SCH (09:38)
[2022-03-31] MEDS: MEGESTROL 400 MG/10 ML CUP PO SCH (09:38)
[2022-03-31] MEDS: polyethylene glycoL 3350 17 GM POWD.PACK PO SCH (09:38)
[2022-03-31] MEDS: SENNOSIDES-DOCUSATE SODIUM 1 EACH TAB PO SCH ×2 (09:38→21:18)
[2022-03-31] MEDS: PANTOPRAZOLE 40 MG/10 ML VIAL IVP SCH ×2 (09:46→21:18)
--- NOTE | 2022-03-31 10:37 | P.PN ---
Subjective Progress Note Date: 03/31/22 The patient is awake, but quite lethargic. He is verbal but not coherent. He does follow simple commands. According to nursing he seems to have been somewhat more agitated. Objective - Vital Signs Vital signs: Vital Signs Temp 97.6 F 03/31/22 03:00 Pulse 99 03/31/22 08:11 Resp 26 H 03/31/22 07:00 BP 140/77 03/31/22 07:00 Pulse Ox 95 03/31/22 08:02 FiO2 50 03/26/22 08:39 Intake & Output 03/30/22 03/31/22 03/31/22 18:59 06:59 18:59 Intake Total 40 840 Output Total 300 Balance 40 840 -300 Weight 55 kg Intake: IV 20 Invasive Line 5 20 Intake, IV Titration 720 Amount Fat Emulsion 20% 500 ml 420 In Empty Bag 1 bag @ 42 mls/hr IV Fr [facility] Rx#: [id number] Mvi, Adult No.4 with Vit 300 K 10 ml Trace (Conc-1Ml/ Dose) 1 ml Sodium Chloride 4Meq/ml Vial 30 meq Potassium Chloride 20 meq Magnesium Sulfate gm 1 gm Sodium Phosphate 15 mmol In Amino Acids 5 %/ Dextrose 20 % 1,000 ml @ 30 mls/hr IV .Q24H [facility] Rx #:[id number] Oral 20 120 Output: Urine 300 Other: Voiding Method Diaper # Voids 1 1 1 - Constitutional General appearance: Present: no acute distress - EENT Eyes: Present: EOMI ENT: Present: hearing grossly normal - Respiratory Respiratory: bilateral: CTA - Cardiovascular Rhythm: regular Heart sounds: normal: S1, S2 - Gastrointestinal General gastrointestinal: Present: normal bowel sounds, soft - Integumentary Integumentary: Present: normal - Neurologic Neurologic Comment(s): Metastatic is as noted. Generalized weakness. No other focal deficits Neurologic: Present: CNII-XII intact - Musculoskeletal Musculoskeletal: Present: generalized weakness, strength equal bilaterally - Psychiatric Psychiatric Comment(s): Awake, but obtunded. Follow simple commands. Speech is not coherent. Not able to answer orientation questions appropriately - Labs CBC & Chem 7: 03/29/22 08:41 03/31/22 07:28 Labs: Abnormal Lab Results - Last 24 Hours (Table) 03/30/22 03/30/22 03/30/22 Range/Units 07:17 10:33 16:22 PT 37.5 H (9.0-12.0) sec INR 3.8 H (<1.2) Sodium (137-145) mmol/L BUN (9-20) mg/dL Creatinine (0.66-1.25) mg/dL Glucose (74-99) mg/dL POC Glucose (mg/dL) 69 L (70-110) mg/dL Calcium (8.4-10.2) mg/dL Total Protein (6.3-8.2) g/dL Triglycerides 303.00 H (0.00-149.00) mg/dL 03/30/22 03/31/22 03/31/22 Range/Units 16:42 00:03 06:02 PT (9.0-12.0) sec INR (<1.2) Sodium (137-145) mmol/L BUN (9-20) mg/dL Creatinine (0.66-1.25) mg/dL Glucose (74-99) mg/dL POC Glucose (mg/dL) 297 H 156 H 131 H (70-110) mg/dL Calcium (8.4-10.2) mg/dL Total Protein (6.3-8.2) g/dL Triglycerides (0.00-149.00) mg/dL 03/31/22 Range/Units 07:28 PT (9.0-12.0) sec INR (<1.2) Sodium 134 L (137-145) mmol/L BUN 46 H (9-20) mg/dL Creatinine 1.29 H (0.66-1.25) mg/dL Glucose 128 H (74-99) mg/dL POC Glucose (mg/dL) (70-110) mg/dL Calcium 10.8 H (8.4-10.2) mg/dL Total Protein 6.1 L (6.3-8.2) g/dL Triglycerides (0.00-149.00) mg/dL Assessment and Plan (1) Left kidney mass Narrative/Plan: Biopsy is pending at this time. Clinical suspicion is highest for progression of his underlying CLL/SLL or transformation to a more aggressive lymphoma. Patient has been started on high-dose pulse Decadron Current Visit: Yes Status: Acute Code(s): N28.89 - OTHER SPECIFIED DISORDERS OF KIDNEY AND URETER SNOMED Code(s): 358235864 (2) Neoplasm related pain Narrative/Plan: The patient's speech is not coherent, and therefore it is difficult to estimate his pain level accurately. Case was discussed with the nursing. Previously with 1 mg of Dilaudid IV, the patient for generally rest for about 2 hours or so. At this time the effect seems to be lasting between one and 2 hours. However it is not clear if this is because of pain, or some increased agitation due to the steroids. Continue current pain regimen , and monitor with ongoing steroids. Current Visit: Yes Status: Acute Code(s): G89.3 - NEOPLASM RELATED PAIN (ACUTE) (CHRONIC) SNOMED Code(s): 35843773898704 Plan: Patient has been initiated on TPN.
--- NOTE | 2022-03-31 11:01 | P.PN ---
Subjective Progress Note Date: 03/31/22 Principal diagnosis: This is a 61-year-old male seen in consultation because of acute kidney injury, secondary to hypercalcemia nonsteroidals as well as hypovolemia. Significantly he also has lymphoma, large mass in the left side of his abdomen which has been biopsied and results are pending. For his hypercalcemia received multiple doses of pamidronate, creatinine and calcium are improving. Patient remains obtunded and unable to answer any question but follows commands. Vital signs are stable urine output is. Not well documented Objective - Vital Signs Vital signs: Vital Signs Temp 97.6 F 03/31/22 03:00 Pulse 99 03/31/22 08:11 Resp 26 H 03/31/22 07:00 BP 140/77 03/31/22 07:00 Pulse Ox 95 03/31/22 08:02 FiO2 50 03/26/22 08:39 Intake & Output 03/30/22 03/31/22 03/31/22 18:59 06:59 18:59 Intake Total 40 840 Output Total 300 Balance 40 840 -300 Weight 55 kg Intake: IV 20 Invasive Line 5 20 Intake, IV Titration 720 Amount Fat Emulsion 20% 500 ml 420 In Empty Bag 1 bag @ 42 mls/hr IV Fr [facility] Rx#: [id number] Mvi, Adult No.4 with Vit 300 K 10 ml Trace (Conc-1Ml/ Dose) 1 ml Sodium Chloride 4Meq/ml Vial 30 meq Potassium Chloride 20 meq Magnesium Sulfate gm 1 gm Sodium Phosphate 15 mmol In Amino Acids 5 %/ Dextrose 20 % 1,000 ml @ 30 mls/hr IV .Q24H [facility] Rx #:[id number] Oral 20 120 Output: Urine 300 Other: Voiding Method Diaper # Voids 1 1 1 On examination somnolent but arousable follows some commands Somewhat restless A chin exam no JVP noted no nodes noted. No facial asymmetry Lungs are clear to auscultation with less than optimal air entry. Heart sounds unremarkable for any murmur rub gallop Abdomen is soft without masses felt in the left abdomen Extremities there was no edema. Neurologically obtunded but follows some commands - Labs CBC & Chem 7: 03/29/22 08:41 03/31/22 07:28 Labs: Abnormal Lab Results - Last 24 Hours (Table) 03/30/22 03/30/22 03/30/22 Range/Units 07:17 16:22 16:42 Sodium (137-145) mmol/L BUN (9-20) mg/dL Creatinine (0.66-1.25) mg/dL Glucose (74-99) mg/dL POC Glucose (mg/dL) 69 L 297 H (70-110) mg/dL Calcium (8.4-10.2) mg/dL Total Protein (6.3-8.2) g/dL Triglycerides 303.00 H (0.00-149.00) mg/dL 03/31/22 03/31/22 03/31/22 Range/Units 00:03 06:02 07:28 Sodium 134 L (137-145) mmol/L BUN 46 H (9-20) mg/dL Creatinine 1.29 H (0.66-1.25) mg/dL Glucose 128 H (74-99) mg/dL POC Glucose (mg/dL) 156 H 131 H (70-110) mg/dL Calcium 10.8 H (8.4-10.2) mg/dL Total Protein 6.1 L (6.3-8.2) g/dL Triglycerides (0.00-149.00) mg/dL Assessment and Plan Plan: 1. Acute kidney injury secondary to NSAIDs, hypercalcemia. Creatinine improved to 1.29 from a peak of 1.9 on 03/28/2022. Currently off of diuretics and started on gentle IV hydration. 2. CK D stage III a with baseline creatinine 1.2-1.3 secondary to nephrosclerosis 3. Hypercalcemia associated with lymphoma with elevated one 25-hydroxy vitamin D level at 98 and low PTH. Status post Aredia multiple times calcium is im proved to 10.8, peak was 13.4 4. History of CLL, large left abdominal mass status post biopsy 5. Hyperuricemia questionable tumor lysis status post rasburicase 6. Left perinephric/retroperitoneal soft tissue mass likely related to the lymphoma with worsening lymphadenopathy noted on the CT status post biopsy, awaiting pathology results. Oncology feels there is a possible high cure rate Plan: Continue gentle IV hydration, currently in 50 mL of normal saline Await pathology results Monitor electrolytes and renal function Avoid nephrotoxic agents
[2022-03-31 11:52] LABS: Glucose,Whole Blood 129 mg/dL (70-110)
[2022-03-31] MEDS ORDERED: 1: MVI, ADULT NO.4 WITH VIT K 10 ML, TRACE (CONC-1ML/DOSE) 1 ML, SODIUM ACETATE 30 MEQ, IV SCH ×7 (12:00)
--- NOTE | 2022-03-31 13:55 | P.PN ---
Subjective Progress Note Date: 03/31/22 Hospital course: Patient is a very pleasant 61-year-old male with a past medical history of CLL on [place], chronic kidney stage III, and COPD. He presented to the emergency department on 03/18/22 with a chief complaint of left flank pain. Patient reported this pain began approximately a few weeks ago and significantly worsened over the past few days. He reported the pain still left flank and was accompanied by nausea. He underwent full evaluation in the emergency department. He was found to have significant leukocytosis with WBC count of 18.9 and an acute kidney injury with BUN 26, creatinine 1.72, and GFR 41. Urinalysis was negative for blood, protein, or infection. Covid PCR negative. CT abdomen and pelvis revealed a left perinephritic/retroperitoneal soft tissue suspicious for mass with overall worsening of previously known lymphadenopathy throughout the abdomen and ascending into the mediastinum with persistent splenomegaly consistent with his prior history of lymphoma along with increase and bilateral pleural effusions with left greater than right. Patient was admitted under our services with consultation to oncology, vascular surgery, nephrology, and urology. Abdominal ultrasound was completed revealing a left perinephritic complex vascular mass, recommending further evaluation with MRI. MRI with and without contrast revealed large posterior perinephrotic mass with massive retroperitoneal adenopathy and massive splenomegaly. Oncology consulted interventional radiology to perform biopsy of renal mass. INR remains elevated, unable to complete biopsy until INR has improved. Patient given vitamin K. On 03/23/22, patient was found to be hypoxic and had increasing oxygen needs. Repeat x-ray revealed increasing left lower lobe effusion. Pulmonology re-consulted at this time for evaluation. On 03/25/22 ultrasound of chest was completed which revealed an 11.8 cm pleural effusion pocket. Patient will likely need to u ndergo thoracentesis, however due to persistently elevated INR it is deemed unsafe to perform at this time. Patient currently on palliative care and underwent renal mass biopsy on 03/27/22 and has been started on high-dose steroids by hematology/oncology team with plans to start chemotherapy on , 04/04/22. Physical exam: Pt seen and fully evaluated at bedside this morning, patient awake but disoriented. He was following commands and would answer some questions appropriately but quickly again becoming confused. Discussed with RN, increased confusion and agitation possibly side effect of steroids versus pain medications versus fall experienced on the evening of 03/29/22. A CT head was ordered at time of fall, however it was reported that patient was unable to tolerate due to pain or remain still for examination and patient refused. Now with increased confusion/agitation RN instructed patient will need to go down for head CT as it is unclear if this is resulting from medications, current condition, or previous fall. PICC line was placed and patient currently receiving TPN. Vital signs reviewed and stable. General: Nontoxic, no distress and appears stated age. Thin, malnourished. Derm: Skin warm and dry, normal coloration for ethnicity. Head: Atraumatic, normocephalic and symmetric. Eyes: EOMs intact, no lid lag, and anicteric sclera Mouth: no lip lesions, mucus membranes moist Cardiovascular: regular rate and rhythm with normal S1S2, no murmur, positive posterior tibial pulses bilaterally, and cap refill < 2 seconds. Lungs: Respirations even, regular, and unlabored on 11 L O2 via venturi mask with FiO2 of 50%. Lungs diminished no rhonchi, rales, wheezes or crackles present, and no accessory muscle usage. Abdominal: soft, Bowel sounds 4 quadrants. Ext:No gross muscle atrophy, no edema, no contractures. Patient withdraws from pain. Neuro/Psych: Alert and oriented, GCS 15. No neurological deficits noted Assessment and Plan of Care: CLL Left perinephric complex mass status post biopsy on 03/27/22 Massive splenomegaly -MRI with and without contrast revealed large posterior perinephrotic mass with massive retroperitoneal adenopathy and massive splenomegaly. -Pain control with IV Dilaudid and oncology added on fentanyl patch -Hematology/oncology following, started patient on high-dose steroids 4 days with reported plans to begin dose of chemotherapy on 04/04/22. -Biopsy pending. Acute encephalopathy -Likely secondary to delirium resulting from medication administration as patient on high-dose steroids as well as narcotics, however cannot rule out head injury resulting from fall that occurred on 03/29/22 (at time of fall, patient was not able to tolerate lying flat and refused CT). CT had ordered at this time -Neuro checks -Fall precautions -Sitter to remain at bedside to maintain patient's safety. -Safe and supportive care with redirection/reorientation as needed. KEERTHI on CKD Hypercalcemia secondary to underlying lymphoma -Nephrology following, appreciate recommendations -Continue with IV fluid hydration Acute respiratory failure with hypoxia secondary to increasing left pleural effusion -Ultrasound chest completed revealing an 11.8 cm pleural effusion pocket -Pulmonology following, recommending patient undergo thoracentesis, however due to persistently elevated INR it is deemed unsafe to perform at this time. -Continue with oxygen supplementation to maintain SpO2 equal to or greater than 90%. Chronic coagulopathy Chronic anemia of chronic disease Lupus anticogulant -Secondary to CLL, hematology/oncology following. Hypomagnesemia, replaced COPD without acute exacerbation -Continue Symbicort 2 puffs twice daily along with PRN nebulizer treatments for shortness of breath and/or wheezing. CODE STATUS: Full code DVT prophylaxis: SCDs Discussed with: Patient, pulmonary and RN Anticipated discharge date: Clinical course to determine Anticipated discharge place: Clinical course to determine A total of 39 minutes was spent on the care of this complex patient more than 50% of the time was spent in counseling and care coordination. Objective - Vital Signs Vital signs: Vital Signs Temp 97.6 F 03/31/22 03:00 Pulse 99 03/31/22 08:11 Resp 20 03/31/22 03:00 BP 149/72 03/31/22 03:00 Pulse Ox 95 03/31/22 08:02 FiO2 50 03/26/22 08:39 Intake & Output 03/30/22 03/31/22 03/31/22 18:59 06:59 18:59 Intake Total 40 840 Output Total 300 Balance 40 840 -300 Weight 55 kg Intake: IV 20 Invasive Line 5 20 Intake, IV Titration 720 Amount Fat Emulsion 20% 500 ml 420 In Empty Bag 1 bag @ 42 mls/hr IV Fr [facility] Rx#: [id number] Mvi, Adult No.4 with Vit 300 K 10 ml Trace (Conc-1Ml/ Dose) 1 ml Sodium Chloride 4Meq/ml Vial 30 meq Potassium Chloride 20 meq Magnesium Sulfate gm 1 gm Sodium Phosphate 15 mmol In Amino Acids 5 %/ Dextrose 20 % 1,000 ml @ 30 mls/hr IV .Q24H [facility] Rx #:[id number] Oral 20 120 Output: Urine 300 Other: Voiding Method Diaper # Voids 1 1 1 - Labs CBC & Chem 7: 03/29/22 08:41 03/31/22 07:28 Labs: Abnormal Lab Results - Last 24 Hours (Table) 03/30/22 03/30/22 03/30/22 Range/Units 07:17 10:33 16:22 PT 37.5 H (9.0-12.0) sec INR 3.8 H (<1.2) Carbon Dioxide 32 H (22-30) mmol/L BUN 45 H (9-20) mg/dL Creatinine 1.62 H (0.66-1.25) mg/dL Glucose 69 L (74-99) mg/dL POC Glucose (mg/dL) 69 L (70-110) mg/dL Calcium 11.6 H (8.4-10.2) mg/dL Total Protein 5.7 L (6.3-8.2) g/dL Triglycerides 303.00 H (0.00-149.00) mg/dL 03/30/22 03/31/22 03/31/22 Range/Units 16:42 00:03 06:02 PT (9.0-12.0) sec INR (<1.2) Carbon Dioxide (22-30) mmol/L BUN (9-20) mg/dL Creatinine (0.66-1.25) mg/dL Glucose (74-99) mg/dL POC Glucose (mg/dL) 297 H 156 H 131 H (70-110) mg/dL Calcium (8.4-10.2) mg/dL Total Protein (6.3-8.2) g/dL Triglycerides (0.00-149.00) mg/dL
[2022-03-31] MEDS: LEVOFLOXACIN 250 MG TAB PO SCH (14:41)
[2022-03-31] MEDS: ALBUTEROL NEBULIZED 2.5 MG/3 ML INHALATION PRN ×2 (16:18→19:47)
[2022-03-31] MEDS ORDERED: LORazepam 1 MG/0.5 ML VIAL IV STA (16:19)
[2022-03-31 17:57] LABS: Glucose,Whole Blood 154 mg/dL (70-110)
[2022-03-31] MEDS ORDERED: 1: MVI, ADULT NO.4 WITH VIT K 10 ML, TRACE (CONC-1ML/DOSE) 1 ML, SODIUM CHLORIDE 4MEQ/ML IV SCH ×7 (20:00)
[2022-03-31] MEDS: PARoxetine 20 MG TAB PO SCH (21:18)
[2022-03-31] MEDS: 1: MVI, ADULT NO.4 WITH VIT K 10 ML, TRACE (CONC-1ML/DOSE) 1 ML, SODIUM CHLORIDE 4MEQ/ML IV SCH ×7 (22:51)
[2022-04-01 01:01] LABS: Glucose,Whole Blood 109 mg/dL (70-110)
[2022-04-01] MEDS: HYDROmorphone 1 MG/ML 1 ML SYRINGE IVP PRN ×5 (02:00→16:29)
[2022-04-01] MEDS: HYDROcodone/APAP 7.5-325MG 1 EACH TAB PO PRN ×2 (02:01→19:02)
[2022-04-01] MEDS ORDERED: HALOPERIDOL LACTATE 5 MG/ML 1 ML VIAL IM STA (03:25)
[2022-04-01 06:50] LABS: Glucose,Whole Blood 91 mg/dL (70-110)
[2022-04-01 07:34] LABS: Albumin 4.1 g/dL (3.5-5.0); Calcium 10.8 mg/dL (8.4-10.2); Magnesium 1.9 mg/dL (1.6-2.3); Potassium 3.7 mmol/L (3.5-5.1); Total Bilirubin 0.9 mg/dL (0.2-1.3); Total Protein 6.2 g/dL (6.3-8.2)
[2022-04-01 07:37] LABS: Anisocytosis Slight; HCT 54.2 % (39.0-53.0); HGB 16.4 gm/dL (13.0-17.5); Hypochromasia Marked; MCH 24.2 pg (25.0-35.0); MCHC 30.3 g/dL (31.0-37.0); MCV 79.9 fL (80.0-100.0); Mean Platelet Volume 7.1; Microcytosis Slight; Platelet Count 272 k/uL (150-450); RBC 6.78 m/uL (4.30-5.90); RDW 18.5 % (11.5-15.5); WBC 15.3 k/uL (3.8-10.6)
[2022-04-01] MEDS: IPRATROPIUM 0.5 MG/2.5 ML NEBU INHALATION SCH ×4 (07:41→20:22)
[2022-04-01] MEDS: SYMBICORT 80-4.5 MCG INHALER INHALATION SCH ×2 (07:41→20:32)
[2022-04-01] MEDS: GABAPENTIN 100 MG CAP PO SCH ×2 (07:52→22:37)
[2022-04-01] MEDS: DEXTROSE 10% IN WATER 500 ML in EMPTY BAG 1 BAG IV SCH (07:53)
[2022-04-01] MEDS: MEGESTROL 400 MG/10 ML CUP PO SCH (07:53)
[2022-04-01] MEDS: SENNOSIDES-DOCUSATE SODIUM 1 EACH TAB PO SCH ×2 (07:53→22:37)
[2022-04-01] MEDS: polyethylene glycoL 3350 17 GM POWD.PACK PO SCH (07:53)
[2022-04-01] MEDS: DEXAMETHASONE SOD PHOS (MDV) 100 MG/10 ML VIAL IVP SCH (08:03)
[2022-04-01] MEDS: PANTOPRAZOLE 40 MG/10 ML VIAL IVP SCH ×2 (08:03→21:38)
[2022-04-01] MEDS: bisacodyL 10 MG SUPP RECTAL PRN (08:04)
--- NOTE | 2022-04-01 10:24 | P.PN ---
Subjective Progress Note Date: 04/01/22 Principal diagnosis: This is a 61-year-old male seen in consultation because of acute kidney injury, secondary to hypercalcemia nonsteroidals as well as hypovolemia. Significantly he also has lymphoma, large mass in the left side of his abdomen which has been biopsied and results are pending. For his hypercalcemia received multiple doses of pamidronate, creatinine and calcium are improving. Patient remains obtunded and unable to answer any question, somewhat restless and had a sitter. He is on IV TPN. Not eating at all.. Vital signs are stable urine output is. Not well documented Creatinine down to 1.26 calcium was 13.4 at peak and today is 10.8, stable since yesterday Objective - Vital Signs Vital signs: Vital Signs Temp 97.4 F L 04/01/22 04:10 Pulse 89 04/01/22 04:10 Resp 22 04/01/22 04:10 BP 132/82 04/01/22 04:10 Pulse Ox 94 L 04/01/22 04:10 FiO2 50 03/26/22 08:39 Intake & Output 03/31/22 04/01/22 04/01/22 18:59 06:59 18:59 Intake Total 30 570 Output Total 800 300 Balance -770 270 Intake: Intake, IV Titration 450 Amount Mvi, Adult No.4 with Vit 450 K 10 ml Trace (Conc-1Ml/ Dose) 1 ml Sodium Chloride 4Meq/ml Vial 30 meq Potassium Chloride 20 meq Magnesium Sulfate gm 1 gm Sodium Phosphate 15 mmol In Amino Acids 5 %/ Dextrose 20 % 1,000 ml @ 45 mls/hr IV .BY DURATION [facility] Rx#:[id number] Oral 30 120 Output: Urine 800 300 Other: Voiding Method Urinal Diaper # Voids 1 # Bowel Movements 1 On exam he is somewhat restless. No JVP neck is supple no facial asymmetry Lungs clear to auscultation fair air entry bilaterally Heart sounds unremarkable for any murmur rub gallop Abdomen soft nontender large mass felt on the left abdomen. Extremity exam was no edema Neurologically confused and disoriented and restless - Labs CBC & Chem 7: 04/01/22 06:58 04/01/22 06:58 Labs: Abnormal Lab Results - Last 24 Hours (Table) 07/16/22 07/16/22 07/17/22 Range/Units 11:50 17:56 06:58 WBC 15.3 H (3.8-10.6) k/uL RBC 6.78 H (4.30-5.90) m/uL Hct 54.2 H (39.0-53.0) % MCV 79.9 L (80.0-100.0) fL MCH 24.2 L (25.0-35.0) pg MCHC 30.3 L (31.0-37.0) g/dL RDW 18.5 H (11.5-15.5) % BUN (9-20) mg/dL Creatinine (0.66-1.25) mg/dL Glucose (74-99) mg/dL POC Glucose (mg/dL) 129 H 154 H (70-110) mg/dL Calcium (8.4-10.2) mg/dL Phosphorus (2.5-4.5) mg/dL Total Protein (6.3-8.2) g/dL 04/01/22 04/01/22 Range/Units 06:58 06:58 WBC (3.8-10.6) k/uL RBC (4.30-5.90) m/uL Hct (39.0-53.0) % MCV (80.0-100.0) fL MCH (25.0-35.0) pg MCHC (31.0-37.0) g/dL RDW (11.5-15.5) % BUN 49 H (9-20) mg/dL Creatinine 1.26 H (0.66-1.25) mg/dL Glucose 107 H (74-99) mg/dL POC Glucose (mg/dL) (70-110) mg/dL Calcium 10.8 H (8.4-10.2) mg/dL Phosphorus 2.4 L (2.5-4.5) mg/dL Total Protein 6.2 L (6.3-8.2) g/dL Assessment and Plan Plan: 1. Acute kidney injury secondary to NSAIDs, hypercalcemia. Creatinine improved to 1.26 from a peak of 1.9 on 03/28/2022. Currently off of diuretics and IV TPN 2. CK D stage III a with baseline creatinine 1.2-1.3 secondary to nephrosclerosis 3. Hypercalcemia associated with lymphoma with elevated one 25-hydroxy vitamin D level at 98 and low PTH. Status post Aredia multiple times calcium is improved to 10.8, peak was 13.4 4. History of CLL, large left abdominal mass status post biopsy 5. Hyperuricemia questionable tumor lysis status post rasburicase 6. Left perinephric/retroperitoneal soft tissue mass likely related to the lymphoma with worsening lymphadenopathy noted on the CT status post biopsy, awaiting pathology results. Oncology feels there is a possible high cure rate Plan: Because of persistent hypercalcemia albeit improved and mental status suggest starting steroids to reduce his calcium further. We'll start prednisone at 20 mg daily Continue TPN watch calcium phosphorus. Await pathology results Monitor electrolytes and renal function Avoid nephrotoxic agents
--- NOTE | 2022-04-01 10:48 | P.PN ---
Subjective Progress Note Date: 04/01/22 Hospital course: Patient is a very pleasant 61-year-old male with a past medical history of CLL on [place], chronic kidney stage III, and COPD. He presented to the emergency department on 03/18/22 with a chief complaint of left flank pain. Patient reported this pain began approximately a few weeks ago and significantly worsened over the past few days. He reported the pain still left flank and was accompanied by nausea. He underwent full evaluation in the emergency department. He was found to have significant leukocytosis with WBC count of 18.9 and an acute kidney injury with BUN 26, creatinine 1.72, and GFR 41. Urinalysis was negative for blood, protein, or infection. Covid PCR negative. CT abdomen and pelvis revealed a left perinephritic/retroperitoneal soft tissue suspicious for mass with overall worsening of previously known lymphadenopathy throughout the abdomen and ascending into the mediastinum with persistent splenomegaly consistent with his prior history of lymphoma along with increase and bilateral pleural effusions with left greater than right. Patient was admitted under our services with consultation to oncology, vascular surgery, nephrology, and urology. Abdominal ultrasound was completed revealing a left perinephritic complex vascular mass, recommending further evaluation with MRI. MRI with and without contrast revealed large posterior perinephrotic mass with massive retroperitoneal adenopathy and massive splenomegaly. Oncology consulted interventional radiology to perform biopsy of renal mass. INR remains elevated, unable to complete biopsy until INR has improved. Patient given vitamin K. On 03/23/22, patient was found to be hypoxic and had increasing oxygen needs. Repeat x-ray revealed increasing left lower lobe effusion. Pulmonology re-consulted at this time for evaluation. On 03/25/22 ultrasound of chest was completed which revealed an 11.8 cm pleural effusion pocket. Patient will likely need to u ndergo thoracentesis, however due to persistently elevated INR it is deemed unsafe to perform at this time. Patient currently on palliative care and underwent renal mass biopsy on 03/27/22 and has been started on high-dose steroids by hematology/oncology team with plans to start chemotherapy on , 04/04/22. Physical exam: Pt seen and fully evaluated at bedside this morning, patient awake and is slightly more oriented. Patient following commands and interacting appropriately. Patient stated he was in [facility] and was reoriented that he is in [facility]. Patient did not undergo CT head ordered again yesterday as RN reports he was again refusing and uncooperative despite attempts at medicating/sedating for examination. Today is day 3 of high-dose steroids ordered by oncology, pending the biopsy results, tentative plan is to administer dose of chemotherapy on Saturday04/04/22. Discussed plan with oncologist, Dr. Azar. Patient remains on 9 L O2 via high flow nasal cannula. Respirations even, regular, and unlabored. Vital signs reviewed and stable. General: Nontoxic, no distress and appears stated age. Thin, malnourished. Derm: Skin warm and dry, normal coloration for ethnicity. Head: Atraumatic, normocephalic and symmetric. Eyes: EOMs intact, no lid lag, and anicteric sclera Mouth: no lip lesions, mucus membranes moist Cardiovascular: regular rate and rhythm with normal S1S2, no murmur, positive p osterior tibial pulses bilaterally, and cap refill < 2 seconds. Lungs: Respirations even, regular, and unlabored on 9 L O2 via venturi mask with FiO2 of 50%. Lungs diminished with absent breath sounds in left mid and lower lung. No rhonchi, rales, wheezes or crackles present, and no accessory muscle usage. Abdominal: soft, Bowel sounds 4 quadrants. Ext:No gross muscle atrophy, no edema, no contractures. Patient withdraws from pain. Neuro/Psych: Alert and oriented, GCS 15. No neurological deficits noted Assessment and Plan of Care: CLL Left perinephric complex mass status post biopsy on 03/27/22 Massive splenomegaly -MRI with and without contrast revealed large posterior perinephrotic mass with massive retroperitoneal adenopathy and massive splenomegaly. -Pain control with IV Dilaudid and oncology added on fentanyl patch -Hematology/oncology following, started patient on high-dose steroids 4 days with reported plans to begin dose of chemotherapy on 04/04/22. -Biopsy pending. Acute encephalopathy, improving -Likely secondary to delirium resulting from medication administration as patient on high-dose steroids as well as narcotics -Neuro checks -Fall precautions -Sitter to remain at bedside to maintain patient's safety. -Safe and supportive care with redirection/reorientation as needed. Leukocytosis -Believed to be reactive secondary to high-dose steroid administration. -We will continue to monitor closely for any signs of infection and with repeat a.m. labs. KEERTHI on CKD, improving Hypercalcemia secondary to underlying lymphoma, improving -Nephrology following, appreciate recommendations -Continue with IV fluid hydration Acute respiratory failure with hypoxia secondary to large left pleural effusion -Ultrasound chest completed revealing an 11.8 cm pleural effusion pocket -Pulmonology following, recommending patient undergo thoracentesis, however due to persistently elevated INR it is deemed unsafe to perform at this time. -Continue with oxygen supplementation to maintain SpO2 equal to or greater than 90%. Chronic coagulopathy Chronic anemia of chronic disease Lupus anticogulant -Secondary to CLL, hematology/oncology following. Hypomagnesemia, replaced COPD without acute exacerbation -Continue Symbicort 2 puffs twice daily along with PRN nebulizer treatments for shortness of breath and/or wheezing. CODE STATUS: Full code DVT prophylaxis: SCDs Discussed with: Patient, pulmonary and RN Anticipated discharge date: Clinical course to determine Anticipated discharge place: Clinical course to determine A total of 39 minutes was spent on the care of this complex patient more than 50% of the time was spent in counseling and care coordination. Patient seen by nurse practitioner independently, I agree with assessment and plan as documented above Paolo Hicks MD [facility] Medicine Objective - Vital Signs Vital signs: Vital Signs Temp 97.4 F L 04/01/22 04:10 Pulse 89 04/01/22 04:10 Resp 22 04/01/22 04:10 BP 132/82 04/01/22 04:10 Pulse Ox 94 L 04/01/22 04:10 FiO2 50 03/26/22 08:39 Intake & Output 03/31/22 04/01/22 04/01/22 18:59 06:59 18:59 Intake Total 30 570 Output Total 800 300 Balance -770 270 Intake: Intake, IV Titration 450 Amount Mvi, Adult No.4 with Vit 450 K 10 ml Trace (Conc-1Ml/ Dose) 1 ml Sodium Chloride 4Meq/ml Vial 30 meq Potassium Chloride 20 meq Magnesium Sulfate gm 1 gm Sodium Phosphate 15 mmol In Amino Acids 5 %/ Dextrose 20 % 1,000 ml @ 45 mls/hr IV .BY DURATION [facility] Rx#:[id number] Oral 30 120 Output: Urine 800 300 Other: Voiding Method Urinal Diaper # Voids 1 # Bowel Movements 1 - Labs CBC & Chem 7: 04/01/22 06:58 04/01/22 06:58 Labs: Abnormal Lab Results - Last 24 Hours (Table) 03/31/22 03/31/22 03/31/22 Range/Units 07:28 11:50 17:56 WBC (3.8-10.6) k/uL RBC (4.30-5.90) m/uL Hct (39.0-53.0) % MCV (80.0-100.0) fL MCH (25.0-35.0) pg MCHC (31.0-37.0) g/dL RDW (11.5-15.5) % Sodium 134 L (137-145) mmol/L BUN 46 H (9-20) mg/dL Creatinine 1.29 H (0.66-1.25) mg/dL Glucose 128 H (74-99) mg/dL POC Glucose (mg/dL) 129 H 154 H (70-110) mg/dL Calcium 10.8 H (8.4-10.2) mg/dL Phosphorus (2.5-4.5) mg/dL Total Protein 6.1 L (6.3-8.2) g/dL 04/01/22 04/01/22 04/01/22 Range/Units 06:58 06:58 06:58 WBC 15.3 H (3.8-10.6) k/uL RBC 6.78 H (4.30-5.90) m/uL Hct 54.2 H (39.0-53.0) % MCV 79.9 L (80.0-100.0) fL MCH 24.2 L (25.0-35.0) pg MCHC 30.3 L (31.0-37.0) g/dL RDW 18.5 H (11.5-15.5) % Sodium (137-145) mmol/L BUN 49 H (9-20) mg/dL Creatinine 1.26 H (0.66-1.25) mg/dL Glucose 107 H (74-99) mg/dL POC Glucose (mg/dL) (70-110) mg/dL Calcium 10.8 H (8.4-10.2) mg/dL Phosphorus 2.4 L (2.5-4.5) mg/dL Total Protein 6.2 L (6.3-8.2) g/dL
--- NOTE | 2022-04-01 11:00 | P.PN ---
Subjective Progress Note Date: 04/01/22 Patient is significantly more awake and alert. He is following simple commands without difficulty. He was able to me the month, as well as the accurately. Speech is still unclear. He states that his pain appears to be better. Objective - Vital Signs Vital signs: Vital Signs Temp 97.6 F 04/01/22 07:51 Pulse 89 04/01/22 07:51 Resp 22 04/01/22 07:51 BP 156/79 04/01/22 07:51 Pulse Ox 94 L 04/01/22 07:51 FiO2 50 03/26/22 08:39 Intake & Output 03/31/22 04/01/22 04/01/22 18:59 06:59 18:59 Intake Total 30 570 Output Total 800 300 Balance -770 270 Intake: Intake, IV Titration 450 Amount Mvi, Adult No.4 with Vit 450 K 10 ml Trace (Conc-1Ml/ Dose) 1 ml Sodium Chloride 4Meq/ml Vial 30 meq Potassium Chloride 20 meq Magnesium Sulfate gm 1 gm Sodium Phosphate 15 mmol In Amino Acids 5 %/ Dextrose 20 % 1,000 ml @ 45 mls/hr IV .BY DURATION [facility] Rx#:[id number] Oral 30 120 Output: Urine 800 300 Other: Voiding Method Urinal Urinal Diaper Diaper # Voids 1 # Bowel Movements 1 - Constitutional General appearance: Present: no acute distress - EENT Eyes: Present: EOMI ENT: Present: hearing grossly normal, normal oropharynx - Respiratory Respiratory: bilateral: CTA - Cardiovascular Rhythm: regular Heart sounds: normal: S1, S2 - Gastrointestinal General gastrointestinal: Present: normal bowel sounds, soft - Integumentary Integumentary: Present: normal - Neurologic Neurologic: Present: CNII-XII intact - Musculoskeletal Musculoskeletal: Present: generalized weakness, strength equal bilaterally - Psychiatric Psychiatric Comment(s): Orientation improved - Labs CBC & Chem 7: 04/01/22 06:58 04/01/22 06:58 Labs: Abnormal Lab Results - Last 24 Hours (Table) 03/31/22 03/31/22 04/01/22 Range/Units 11:50 17:56 06:58 WBC 15.3 H (3.8-10.6) k/uL RBC 6.78 H (4.30-5.90) m/uL Hct 54.2 H (39.0-53.0) % MCV 79.9 L (80.0-100.0) fL MCH 24.2 L (25.0-35.0) pg MCHC 30.3 L (31.0-37.0) g/dL RDW 18.5 H (11.5-15.5) % BUN (9-20) mg/dL Creatinine (0.66-1.25) mg/dL Glucose (74-99) mg/dL POC Glucose (mg/dL) 129 H 154 H (70-110) mg/dL Calcium (8.4-10.2) mg/dL Phosphorus (2.5-4.5) mg/dL Total Protein (6.3-8.2) g/dL 04/01/22 04/01/22 Range/Units 06:58 06:58 WBC (3.8-10.6) k/uL RBC (4.30-5.90) m/uL Hct (39.0-53.0) % MCV (80.0-100.0) fL MCH (25.0-35.0) pg MCHC (31.0-37.0) g/dL RDW (11.5-15.5) % BUN 49 H (9-20) mg/dL Creatinine 1.26 H (0.66-1.25) mg/dL Glucose 107 H (74-99) mg/dL POC Glucose (mg/dL) (70-110) mg/dL Calcium 10.8 H (8.4-10.2) mg/dL Phosphorus 2.4 L (2.5-4.5) mg/dL Total Protein 6.2 L (6.3-8.2) g/dL Assessment and Plan (1) Left kidney mass Narrative/Plan: Biopsy is pending. Given the high clinical suspicion for either progressive CLL or transformation to a more aggressive lymphoproliferative condition, the timmy ent is currently on pulse Decadron as a bridging therapy to more definite regimen once the biopsy is available. The patient is improved on the same as noted in the HPI. - Case discussed with the admitting service. Completed 4 days of pulse Decadron. Hopefully we will have the result of the biopsy this coming week. Further recommendations will then be made appropriately. If the patient has a r esponsive and more treatable condition such as large B-cell lymphoma, it'll be reasonable to start him on specific treatment for that as long as his performance status is at least stable Current Visit: Yes Status: Acute Code(s): N28.89 - OTHER SPECIFIED DISORDERS OF KIDNEY AND URETER SNOMED Code(s): 582413699 (2) Neoplasm related pain Narrative/Plan: The patient is continuing on Dilaudid IV. Pain medication requirement does appear to be somewhat diminished since starting the steroids. Patient is definitely more alert. Current Visit: Yes Status: Acute Code(s): G89.3 - NEOPLASM RELATED PAIN (ACUTE) (CHRONIC) SNOMED Code(s): 86806083833005
[2022-04-01 12:07] LABS: Glucose,Whole Blood 117 mg/dL (70-110)
[2022-04-01] MEDS ORDERED: MAGNESIUM SULFATE-D5W PMX 1 GM in DEXTROSE/WATER 1 100ML.BAG IVPB ONE (13:30)
[2022-04-01] MEDS ORDERED: POTASSIUM PHOSPHATE 10 MMOL in SODIUM CHLORIDE 0.9% 100 ML IV ONE (13:30)
[2022-04-01] MEDS: bisacodyL 5 MG TABLET.DR PO SCH (14:16)
[2022-04-01] MEDS: LEVOFLOXACIN 250 MG TAB PO SCH (15:21)
[2022-04-01 18:17] LABS: Glucose,Whole Blood >600 mg/dL (70-110)
[2022-04-01 18:17] LABS: Glucose,Whole Blood 130 mg/dL (70-110)
[2022-04-01] MEDS ORDERED: KETOROLAC 15 MG/ML 1 ML VIAL IVP STA (18:50)
[2022-04-01] MEDS: clonazePAM 0.5 MG TAB PO PRN (19:02)
[2022-04-01] MEDS: LORazepam 0.5 MG TAB PO PRN (19:02)
[2022-04-01] MEDS: 1: MVI, ADULT NO.4 WITH VIT K 10 ML, TRACE (CONC-1ML/DOSE) 1 ML, SODIUM CHLORIDE 4MEQ/ML IV SCH ×7 (19:22)
[2022-04-01] MEDS ORDERED: HYDROmorphone 1 MG/ML 1 ML SYRINGE IVP STA (19:44)
[2022-04-01] MEDS: PARoxetine 20 MG TAB PO SCH (22:37)
[2022-04-02 00:25] LABS: Glucose,Whole Blood 111 mg/dL (70-110)
[2022-04-02] MEDS: HYDROmorphone 1 MG/ML 1 ML SYRINGE IVP PRN ×7 (00:25→23:42)
[2022-04-02] MEDS ORDERED: MORPHINE SULFATE 2 MG/ML SYRINGE IVP STA (02:24)
[2022-04-02] MEDS: LORazepam 0.5 MG TAB PO PRN ×3 (04:36→22:31)
[2022-04-02 06:09] LABS: Glucose,Whole Blood 83 mg/dL (70-110)
[2022-04-02] MEDS: IPRATROPIUM 0.5 MG/2.5 ML NEBU INHALATION SCH ×4 (07:42→19:19)
[2022-04-02] MEDS: SYMBICORT 80-4.5 MCG INHALER INHALATION SCH ×2 (07:43→19:19)
[2022-04-02] MEDS: bisacodyL 5 MG TABLET.DR PO SCH (07:53)
[2022-04-02] MEDS: PANTOPRAZOLE 40 MG/10 ML VIAL IVP SCH ×2 (07:53→20:06)
[2022-04-02] MEDS: MEGESTROL 400 MG/10 ML CUP PO SCH (07:53)
[2022-04-02] MEDS: GABAPENTIN 100 MG CAP PO SCH ×2 (07:53→20:06)
[2022-04-02] MEDS: polyethylene glycoL 3350 17 GM POWD.PACK PO SCH (07:54)
[2022-04-02] MEDS: SENNOSIDES-DOCUSATE SODIUM 1 EACH TAB PO SCH ×2 (07:57→20:06)
[2022-04-02] MEDS: clonazePAM 0.5 MG TAB PO PRN (07:58)
[2022-04-02] MEDS: DEXAMETHASONE SOD PHOS (MDV) 100 MG/10 ML VIAL IVP SCH (07:59)
[2022-04-02] MEDS: HYDROcodone/APAP 7.5-325MG 1 EACH TAB PO PRN ×2 (09:40→15:19)
[2022-04-02] MEDS: QUEtiapine 25 MG TAB PO SCH ×2 (09:40→20:06)
--- NOTE | 2022-04-02 10:50 | P.PN ---
Subjective Patient is seen in follow-up for acute kidney injury on chronic kidney disease. Renal function is stable - creatinine 1.26 yesterday. Calcium level 10.8 yesterday. Required straight catheterization yesterday. Nonoliguric. Quite lethargic. Family present at bedside. Vital signs are stable. General: Appears lethargic. HEENT: Head exam is unremarkable. LUNGS: Breath sounds decreased. HEART: Rate and Rhythm are regular. ABDOMEN: Soft, no distention. EXTREMITITES: No edema. Objective - Vital Signs Vital signs: Vital Signs Temp 98.2 F 04/02/22 04:00 Pulse 108 H 04/02/22 07:54 Resp 22 04/02/22 07:51 BP 164/79 04/02/22 07:51 Pulse Ox 98 04/02/22 07:51 FiO2 50 03/26/22 08:39 Intake & Output 04/01/22 04/02/22 04/02/22 18:59 06:59 18:59 Intake Total 40 Output Total 250 700 Balance -210 -700 Intake: IV 20 Invasive Line 7 20 Oral 20 Output: Urine 250 700 Straight 350 Other: Voiding Method Urinal Urinal Diaper Diaper # Bowel Movements 2 - Labs CBC & Chem 7: 04/01/22 06:58 04/01/22 06:58 Labs: Abnormal Lab Results - Last 24 Hours (Table) 04/01/22 04/01/22 04/01/22 Range/Units 12:04 18:08 18:11 POC Glucose (mg/dL) 117 H >600 H 130 H (70-110) mg/dL 04/02/22 Range/Units 00:23 POC Glucose (mg/dL) 111 H (70-110) mg/dL Assessment and Plan Plan: Assessment: 1. Acute kidney injury mostly prerenal secondary to nonsteroidals, hypovolemia and hypercalcemia. Creatinine peaked at 1.9 this admission - 1.26 yesterday. UA benign. No hydronephrosis noted on CAT scan. 2. Chronic kidney disease stage IIIA with baseline creatinine in the range of 1.2-1.3 secondary to nephrosclerosis. 3. Left lower quadrant abdominal pain. Left kidney mass versus hematoma noted on CAT scan. Oncology and urology following. MRI showed large posterior left perinephric mass related to lymphoma. Retroperitoneal adenopathy noted. 4. Hypercalcemia secondary to hypovolemia and lymphoma. Not on any vitamin D or calcium supplementation. Improved. PTH low at 2.3. Vitamin D level 43.6. BEATRICE 20. Serum immunofixation showed IgG Paraprotein. 1,25D3 high at 98. Oncology following. 5. History of CLL. Oncology following. Biopsy result pending. 6. Metabolic acidosis secondary to acute kidney injury and IV fluids. Status post po bicarb. Resolved. 7. Hypomagnesemia from poor intake and diuresis. Replaced. Better. 8. Volume overload. s/p Lasix. Improved. Plan: Patient has hypercalcemia with an elevated calcitriol level which is due to enhanced calcitriol production from the underlying malignancy - on steroids. If no improvement in calcium level, will repeat zoledronic acid. If refractory to zoledronic acid, will consider denosumab. Encouraged oral intake. Receiving TPN. Avoid nephrotoxins. Continue to monitor renal function and urine output. Follow-up morning labs.
[2022-04-02 10:59] LABS: Calcium 10.1 mg/dL (8.4-10.2); Total Bilirubin 1.3 mg/dL (0.2-1.3)
[2022-04-02 11:02] LABS: Magnesium 2.1 mg/dL (1.6-2.3); Phosphorus 2.6 mg/dL (2.5-4.5); Potassium 4.8 mmol/L (3.5-5.1); Total Protein 6.2 g/dL (6.3-8.2)
--- NOTE | 2022-04-02 13:22 | P.PN ---
Subjective Progress Note Date: 04/02/22 Principal diagnosis: Renal mass The patient is a 61-year-old male patient, known history of CLL on [place], chronic kidney stage III, COPD. He presented to the [facility] on 03/18/22 with abdominal pain has been going on for few weeks with progressive worsening over the past fe w days. Patient is nauseous but no vomiting. No hematemesis. No hematuria. Patient was taken [id number] naproxen and ibuprofen for his pain control for the past few days. He stated that he was supposed to follow-up with Dr. Faulkner from oncology last month but he canceled his appointment. Patient has a chronic exertional dyspnea, but it seems to be worsening. He is known to have COPD maintained on 3L home O2, and a combination of Advair and Spiriva on outpatient basis. He also carries a diagnosis of CLL that was followed up by Dr. Faulkner. He is known to have extensive lymphadenopathy related to his CLL. Based on the most recent oncology evaluation, there has been progression his CLL based on progression his lymphadenopathy. In the [facility], the patient was found to have a coagulation profile was abnormal, and the patient has been quite neuropathic even prior admissions. An abdominal CT of the abdomen and pelvis was done and it showed a left perinephric/retroperitoneal soft tissue density which is either a mass versus hematoma and this was not present on previous evaluation or there has been probably a subtle finding in 2020. There is also overall worsening in the lymphadenopathy about the abdomen and ascending into the mediastinum with splenomegaly. The patient also had small bilateral pleural effusions L>R. Abdominal ultrasound was then completed revealing a left perinephritic complex vascular mass, recommending further evaluation with MRI. MRI with and without contrast revealed large posterior perinephrotic mass with massive retroperitoneal adenopathy and massive splenomegaly. Oncology consulted interventional radiology to perform biopsy of renal mass. I NR remains elevated, unable to complete biopsy until INR has improved. Patient given vitamin K. On 03/23/22, patient was found to be hypoxic and had increasing oxygen needs. Repeat x-ray revealed increasing left lower lobe effusion. Pulmonology re-consulted at this time for evaluation. On 03/25/22 ultrasound of chest was completed which revealed an 11.8 cm pleural effusion pocket. Patient will likely need to undergo thoracentesis. However, INR still remains elevated at this time despite receiving multiple doses of Vitamin K. Oncology and interventional radiology continue to follow. The patient will also undergo biopsy of renal mass. Both the thoracentesis and the renal biopsy is on hold until the patient's INR is less than 1.5. 03/26 The patient was lethargic during examination. He was confused and unable to follow a conversation fully. He did state he still has lower left quadrant pain, but it is mild and much better today. He received Dilaudid prior to examination. Spoke with the patient's nephew, Dejon, via telephone. He states he is the patient's next of kin and would like to be updated regularly. He was told the patient's procedures are still on hold because his blood is too thin despite the vitamin K that was given. Awaiting oncology's recommendations. Dejon has never had conversations with the patient regarding his goals of care or wishes. Code status discussed at length. Dejon would like to wait for the renal biopsy and the thoracentesis before deciding on a plan of care moving forward. He would like the patient to remain a full code. 03/27 The patient is lying in bed and appears uncomfortable. He c/o LLQ pain. No family present at time of examination. Patient still slightly confused and has garbled speech.The patient's Fentanyl patch was discontinued yesterday. Per RN, the patient was barely responsive and Narcan had to be administered. Low d ose [place] ATC was added to pain regimen in attempt to keep pain more controlled. Dilaudid IV still available prn for severe pain. Discussed pain medication plan with RN, requested she call with any issues. Patient will likely need anther adjustment in pain medication. The patient denies any nausea. He states he has not been eating much due to a loss of appetite. Wanda added. The patient is currently on 9L NC with slightly labored breathing. SPO2 94%. Awaiting pulmonary to determine if patient will be able to have a thoracentesis today, INR 3.3 today despite receiving vitamin K. 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 Oncology has left message for IR as a biopsy for possible transformation of CLL is needed and per their message Saturday was holding off related to coagulopathy. Returned to patient's bedside to reassess pain. The patient woke up easily. He was a little confused as to where he was and what was going on. He reoriented easily. He stated his pain was "ok". The patient's nephew was present. Education was provided regarding the underlying conditions and poor prognosis. Code status was also addressed again. The patient's nephew is unsure about what to do. He would like to take some time to talk with the patient and his family. The patient is to remain a full code for now. The pulmonary service feels given the patients high INR, a thoracentesis would not be safe at this time. They do not feel like he would tolerate the procedure well. A lymph node biopsy is scheduled to be done later this afternoon. 03/28 The patient is lethargic, but awakens easily. He c/o abdominal pain. Fleming[place] dose increased to 7.5/325mg. The patient is very weak and debilitated. Code status addressed with patient who stated "I don't know". He is confused and unable to follow a conversation fully. His insight and judgment is not intact at this time. Spoke to oncology PLAN CONSULTANT via telephone. She is hoping the retroperitoneal mass biopsy results come back tomorrow. She stated if his lymphoma has transformed to [place], it is very treatable and even considered curable. Updated the patient's nephew (DPOA), Dejon, via telephone. He is agreea ble in waiting for biopsy results before considering hospice. However, Dejon did agree to make the patient a DNR. 03/29 The patient was able to tell me he is in the hospital, the correct year, and his last name. He is lethargic, but wakens easily. Patient was receiving IV Dilaudid approximately every 2 hours despite scheduled [place]. Pain regimen changed to a low dose Fentanyl patch, and [place] and Dilaudid prn. Awaiting biopsy results for plan of care. Patient's nephew updated. 03/30 Patient resting in bed with eyes closed, no distress noted. Awakens easily to verbal stimulus. Stated he is "alright", and his pain is "ok" right now. Patient regional safety manager at bedside. Patient's nephew and sister is at the bedside. They stated they came early in hopes of talking to some of the physic ians, especially oncology. Contacted oncology in attempt of getting a time frame for their patient rounds the family. PLAN CONSULTANT stated they are in the clinic this morning and will start rounding approximately 1300. Family awaiting biopsy results to make decisions moving forward, hospice vs. aggressive treatment. They have multiple questions regarding treatment if the patient's lymphoma has in fact transformed to Ruffin's. Plans in place for PICC line placement and TPN. Education provided regarding pain medication regimen. They agree patient appears comfortable. 1500 Family awaiting oncology for update. Patient going to IR for PICC line placement. Spoke to RN and family, asked them to call if any questions or concerns. There is no palliative care coverage over the weekend. Family given personal cell phone number to call if needed. Objective - Vital Signs Vital signs: Vital Signs Temp 98.2 F 04/02/22 04:00 Pulse 108 H 04/02/22 07:54 Resp 22 04/02/22 07:51 BP 164/79 04/02/22 07:51 Pulse Ox 98 04/02/22 07:51 FiO2 50 03/26/22 08:39 Intake & Output 04/01/22 04/02/22 04/02/22 18:59 06:59 18:59 Intake Total 40 Output Total 250 700 Balance -210 -700 Intake: IV 20 Invasive Line 7 20 Oral 20 Output: Urine 250 700 Straight 350 Other: Voiding Method Urinal Urinal Diaper Diaper # Bowel Movements 2 - Exam General: Patient lethargic. No acute distress. Appears frail, cachectic, and older than stated age. HEENT: Head is atraumatic, normocephalic Sclerae are clear. Pupils equal, round and reactive to light bilaterally. CV: Heart regular in rate and rhythm positive S1 and S2. No clicks, rubs or murmurs. Peripheral pulses equal. 2/4 Lungs: CTA No wheezes rales or rhonchi. Respirations even and slightly labored. 9L NC Abdomen/GI: Soft. Bowel sounds present in all 4 quadrants. Bowel sounds normoactive. + abdominal tenderness. Musculoskeletal/ Extremities: DENNIS, + generalized weakness Vascular: Radial pulses equal. 2/4, no peripheral edema Skin: Warm and dry. No rash. Neurologic: Oriented times 1-2, confused and mumbles words. Follows commands. Restless and fidgety Psychiatric: Anxious - Labs CBC & Chem 7: 04/01/22 06:58 04/02/22 10:18 Labs: Abnormal Lab Results - Last 24 Hours (Table) 04/01/22 04/01/22 04/01/22 Range/Units 12:04 18:08 18:11 POC Glucose (mg/dL) 117 H >600 H 130 H (70-110) mg/dL 04/02/22 Range/Units 00:23 POC Glucose (mg/dL) 111 H (70-110) mg/dL Assessment and Plan Assessment: Symptoms * Pain - "hurts a lot" pointing to abdomen. Continue Tylenol, Neurotin, [place], and Dilaudid. Fentanyl patch increased to 25mcgs Q72H * Fatigue - Generalized weakness and fatigue, continue TPN * SOB - Yes- chronic dyspnea on exertion, Continue Symbicort, Albuterol, Atrovent and Lasix. On 9L NC. * Insomnia - Occasional, Continue Melatonin prn * N/V - Occasional nausea, Continue Zofran prn * Anxiety - Yes, continue Ativan and Klonopin * Depression - No, Continue Paxil * Confusion - Yes, Seroquel added BID * Agitation - Occasional, especially at night or with poor pain control, Seroqul added * Hallucinations - No * Appetite/weight loss - + loss of appetite and recent weight loss, encourage PO intake, continue with regular diet and ensure TIDWM and magic cups. Continue Megace. Continue TPN * Dysphagia - No * Constipation - LBM 04/01 x 2. Continue Senokot -S and Miralax daily. Dulcolax suppository prn. * Incontinence - Yes, has brief on * Itch - No Plan: Summary/Goals - Patient confused, restless, and pulling at telemetry cables when examined. Nephew asleep at bedside. The patient states it is 2021 correctly, but when asked what month it is he states it is 2021 again. He stated he was in the [place], but did not know what building he was in when asked specifically. He does not know who the president is either. Seroquel added BID. He stated his abdomen hurts a lot, but was unable to give a number of severity on a scale of 1-10. Fentanyl patch dose increased. Spoke to RN regarding new pain regimen. Patient regional safety manager at bedside. The oncologist had a lengthy discussion with the family on Saturday. They were advised that clinically the patient is more likely to either progressive CLL, or transformation to a more aggressive lymphoproliferative malignancy subtype, with the latter being favored. As most of lymphoproliferative malignancies are very treatable, but, specifically fast responses to treatment, it would be reasonable to continue aggressive supportive care with plan for active treatment, assuming pathology confirms a treatable. Awaiting the final pathology to decide for definitive regimen, it was recommended that the patient be treated with high-dose Decadron. The family was also advised that if the pathology showed a new, hard to treat malignancy, or a very aggressive lymphoid malignancy, requiring very high-dose regimens, it would be very reasonable to consider comfort care. In addition, the patient continued to decline, while on high-dose Decadron, it would also be recommended to cons ider the same. They had decided to continue current aggressive medical management. Advanced Directives - No, none on file Code Status - DNR Thank you for this consult Antonella Paz [facility] [id number] Email: [email or web address] Time with Patient: Greater than 30
--- NOTE | 2022-04-02 15:05 | P.PN ---
Subjective Progress Note Date: 04/02/22 Principal diagnosis: Concern of Renal Mass More alert, improving renal function, and decreased oxygen need after 4 day pulse dose of Dexamethasone. Nephew Dejon and cousin at bedside this am during evaluation. We discussed the likelihood of High grade transformation and the plan likely for CHOP chemotherapy inpatient. ECHO has been ordered in anticipation of this. Objective - Vital Signs Vital signs: Vital Signs Temp 98.2 F 04/02/22 04:00 Pulse 102 H 04/02/22 12:28 Resp 13 04/02/22 12:28 BP 164/79 04/02/22 07:51 Pulse Ox 93 L 04/02/22 12:28 FiO2 50 03/26/22 08:39 Intake & Output 04/01/22 04/02/22 04/02/22 18:59 06:59 18:59 Intake Total 40 Output Total 250 700 0 Balance -210 -700 0 Weight 55 kg Intake: IV 20 Invasive Line 7 20 Oral 20 Output: Urine 250 700 Straight 350 Stool 0 Other: Voiding Method Urinal Urinal Urinal Diaper Diaper Diaper # Bowel Movements 2 - Exam Gen.: NAD HEENT: Mucosa moist, no conjunctival pallor. Lymph:Bilateral small cervical lymphadenopathy Lungs: No respiratory distress. Heart: Tachy Abdomen: Soft, nontender. 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 Pain medication requirement does appear to be somewhat diminished since starting the steroids. Patient is definitely more alert. Current Visit: Yes Status: Acute Code(s): G89.3 - NEOPLASM RELATED PAIN (ACUTE) (CHRONIC) SNOMED Code(s): 09976318482754
[2022-04-02] MEDS: LEVOFLOXACIN 250 MG TAB PO SCH (16:04)
--- NOTE | 2022-04-02 16:08 | P.PN ---
Subjective Progress Note Date: 04/02/22 Hospital course: Patient is a very pleasant 61-year-old male with a past medical history of CLL on Calquence, chronic kidney stage III, and COPD. He presented to the emergency department on 03/18/22 with a chief complaint of left flank pain. Patient reported this pain began approximately a few weeks ago and significantly worsened over the past few days. He reported the pain still left flank and was accompanied by nausea. He underwent full evaluation in the emergency department. He was found to have significant leukocytosis with WBC count of 18.9 and an acute kidney injury with BUN 26, creatinine 1.72, and GFR 41. Urinalysis was negative for blood, protein, or infection. Covid PCR negative. CT abdomen and pelvis revealed a left perinephritic/retroperitoneal soft tissue suspicious for mass with overall worsening of previously known lymphadenopathy throughout the abdomen and ascending into the mediastinum with persistent splenomegaly consistent with his prior history of lymphoma along with increase and bilateral pleural effusions with left greater than right. Patient was admitted under our services with consultation to oncology, vascular surgery, nephrology, and urology. Abdominal ultrasound was completed revealing a left perinephritic complex vascular mass, recommending further evaluation with MRI. MRI with and without contrast revealed large posterior perinephrotic mass with massive retroperitoneal adenopathy and massive splenomegaly. Oncology consulted interventional radiology to perform biopsy of renal mass. INR remains elevated, unable to complete biopsy until INR has improved. Patient given vitamin K. On 03/23/22, patient was found to be hypoxic and had increasing oxygen needs. Repeat x-ray revealed increasing left lower lobe effusion. Pulmonology re-consulted at this time for evaluation. On 03/25/22 ultrasound of chest was completed which revealed an 11.8 cm pleural effusion pocket. Patient will likely need to u ndergo thoracentesis, however due to persistently elevated INR it is deemed unsafe to perform at this time. Patient currently on palliative care and underwent renal mass biopsy on 03/27/22 and has been started on high-dose steroids by hematology/oncology team with plans to start CHOP chemotherapy on 04/03/22. Physical exam: Pt seen and fully evaluated at bedside this morning, patient awake and is slightly more oriented. He was interacting appropriately and even gave a fist bump. Patient's cousin and nephew are at bedside and updated on plan of care. Today patient is scheduled to receive day 4 of high-dose steroids ordered by oncology. 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 Called and reported results to Dr. Azar. Plans to continue with high-dose steroids followed by CHOP chemotherapy on Saturday04/04/22. Vital signs reviewed and stable. General: Nontoxic, no distress and appears stated age. Thin, malnourished. Derm: Skin warm and dry, normal coloration for ethnicity. Head: Atraumatic, normocephalic and symmetric. Eyes: EOMs intact, no lid lag, and anicteric sclera Mouth: no lip lesions, mucus membranes moist Cardiovascular: regular rate and rhythm with normal S1S2, no murmur, positive posterior tibial pulses bilaterally, and cap refill < 2 seconds. Lungs: Respirations even, regular, and unlabored on 9 L O2 via venturi mask with FiO2 of 50%. Lungs diminished with absent breath sounds in left mid and lower lung. No rhonchi, rales, wheezes or crackles present, and no accessory muscle usage. Abdominal: soft, Bowel sounds 4 quadrants. Ext:No gross muscle atrophy, no edema, no contractures. Patient withdraws from pain. Neuro/Psych: Alert and oriented, GCS 15. No neurological deficits noted Assessment and Plan of Care: CLL Left perinephric complex mass status post biopsy on 03/27/22 Massive splenomegaly -MRI with and without contrast revealed large posterior perinephrotic mass with massive retroperitoneal adenopathy and massive splenomegaly. -Pain control with IV Dilaudid and oncology added on fentanyl patch -Hematology/oncology following, started patient on high-dose steroids 4 days with reported plans to begin dose of CHOP chemotherapy on 04/03/22. -Biopsy has resulted and results revealing high-grade B- cell non-Hodgkin's lymphoma consistent with diffuse large B-cell lymphoma. Acute encephalopathy, improving -Likely multifactorial secondary to delirium resulting from medication administration as patient on high-dose steroids as well as narcotics -Neuro checks -Fall precautions -Sitter to remain at bedside to maintain patient's safety. -Safe and supportive care with redirection/reorientation as needed. Leukocytosis -Believed to be reactive secondary to high-dose steroid administration. -We will continue to monitor closely for any signs of infection and with repeat a.m. labs. KEERTHI on CKD, improving Hypercalcemia secondary to underlying lymphoma, improving -Nephrology following, appreciate recommendations -Improved with IV fluid hydration. Acute respiratory failure with hypoxia secondary to large left pleural effusion -Ultrasound chest completed revealing an 11.8 cm pleural effusion pocket -Pulmonology following, recommending patient undergo thoracentesis, however due to persistently elevated INR it is deemed unsafe to perform at this time. -Continue with oxygen supplementation to maintain SpO2 equal to or greater than 90%. Severe protein malnourishment -Continue TPN Chronic coagulopathy Chronic anemia of chronic disease Lupus anticogulant -Secondary to CLL, hematology/oncology following. Hypomagnesemia, replaced COPD without acute exacerbation -Continue Symbicort 2 puffs twice daily along with PRN nebulizer treatments for shortness of breath and/or wheezing. CODE STATUS: Full code DVT prophylaxis: SCDs Discussed with: Patient, patient's nephew, patient's cousin, hematology, and RN Anticipated discharge date: Clinical course to determine Anticipated discharge place: Clinical course to determine A total of 39 minutes was spent on the care of this complex patient more than 50% of the time was spent in counseling and care coordination. I reviewed the documentation as provided by the CAYLA above, who is the original author of this note. I agree with the documented assessment and plan, with the following changes: none Objective - Vital Signs Vital signs: Vital Signs Temp 98.2 F 04/02/22 04:00 Pulse 108 H 04/02/22 07:54 Resp 22 04/02/22 07:51 BP 164/79 04/02/22 07:51 Pulse Ox 98 04/02/22 07:51 FiO2 50 03/26/22 08:39 Intake & Output 04/01/22 04/02/22 04/02/22 18:59 06:59 18:59 Intake Total 40 Output Total 250 700 Balance -210 -700 Intake: IV 20 Invasive Line 7 20 Oral 20 Output: Urine 250 700 Straight 350 Other: Voiding Method Urinal Urinal Diaper Diaper # Bowel Movements 2 - Labs CBC & Chem 7: 04/05/22 14:23 04/05/22 06:55 Labs: Abnormal Lab Results - Last 24 Hours (Table) 04/01/22 04/01/22 04/01/22 Range/Units 12:04 18:08 18:11 POC Glucose (mg/dL) 117 H >600 H 130 H (70-110) mg/dL 04/02/22 Range/Units 00:23 POC Glucose (mg/dL) 111 H (70-110) mg/dL
[2022-04-02] MEDS: 1: MVI, ADULT NO.4 WITH VIT K 10 ML, TRACE (CONC-1ML/DOSE) 1 ML, SODIUM ACETATE 30 MEQ, IV SCH ×7 (17:03)
[2022-04-02] MEDS: PARoxetine 20 MG TAB PO SCH (20:28)
[2022-04-02] MEDS: ALBUTEROL NEBULIZED 2.5 MG/3 ML INHALATION PRN (23:10)
[2022-04-03 00:11] LABS: Glucose,Whole Blood 116 mg/dL (70-110)
[2022-04-03] MEDS: clonazePAM 0.5 MG TAB PO PRN (02:01)
[2022-04-03] MEDS: HYDROmorphone 1 MG/ML 1 ML SYRINGE IVP PRN ×2 (03:04→06:09)
[2022-04-03 06:17] LABS: Glucose,Whole Blood 82 mg/dL (70-110)
--- NOTE | 2022-04-03 07:31 | CA ---
Transthoracic Echo Report Name: Zana Cochran Age: 61 Gender: M : 1960 Exam Date: 04/02/2022 16:32 Exam Location: [facility] Ht (in): 66 Wt (lb): 121 Ordering Physician: Kemi Zapien Attending/Referring Phys: Loan Clerk Shae Frederick RDCS Procedure CPT: Indications: chemotherapy Cardiac Hx: Technical Quality: Fair Contrast 1: Total Dose (mL): Contrast 2: Total Dose (mL): MEASUREMENTS (Male / Female) Normal Values 2D ECHO LV Diastolic Diameter PLAX 3.5 cm 4.2 - 5.9 / 3.9 - 5.3 cm LV Systolic Diameter PLAX 2.2 cm IVS Diastolic Thickness 0.9 cm 0.6 - 1.0 / 0.6 - 0.9 cm LVPW Diastolic Thickness 0.9 cm 0.6 - 1.0 / 0.6 - 0.9 cm LV Relative Wall Thickness 0.5 RV Internal Dim ED PLAX 4.1 cm M-MODE Aortic Root Diameter MM 3.8 cm DOPPLER AV Peak Velocity 174.3 cm/s AV Peak Gradient 12.2 mmHg LVOT Peak Velocity 97.3 cm/s LVOT Peak Gradient 3.8 mmHg MV Area PHT 4.8 cm??? Mitral E Point Velocity 77.1 cm/s Mitral A Point Velocity 114.4 cm/s Mitral E to A Ratio 0.7 MV Deceleration Time 157.8 ms TR Peak Velocity 258.2 cm/s TR Peak Gradient 26.7 mmHg Right Ventricular Systolic Press 30.7 mmHg FINDINGS Left Ventricle Normal Left ventricular size, wall thickness, systolic function with no obvious regional wall motion abnormalities. Normal Left ventricular diastolic filling pattern. Left ventricular ejection fraction is estimated at 55-60 %. Right Ventricle Mild right ventricular dilatation. Right ventricular systolic pressure within normal limits. Right Atrium Normal right atrial size. Left Atrium Normal left atrial size. No evidence for an atrial septal defect. Mitral Valve No mitral stenosis, regurgitation or prolapse. Aortic Valve No aortic valve stenosis or regurgitation. Tricuspid Valve Structurally normal tricuspid valve. Mild tricuspid regurgitation. Pulmonic Valve Trace pulmonic regurgitation. Pericardium Pleural effusion. No pericardial effusion. Aorta Normal size aortic root and proximal ascending aorta. CONCLUSIONS Normal left ventricular ejection fraction 55-60% Mild tricuspid regurgitation Pleural effusion noted No pericardial effusion Previewed by: Dr. Domo Leon DO (Electronically Signed) Final Date: 03 April 2022 07:30
[2022-04-03 07:43] LABS: AST 41 U/L (17-59); African American GFR (CKD) 80 (>60 ml/min/1.73 sqM); Albumin 3.9 g/dL (3.5-5.0); Albumin/Globulin Ratio 1.9; Alkaline Phosphatase 64 U/L (38-126); Anion Gap 14 mmol/L; Blood Urea Nitrogen 47 mg/dL (9-20); Calcium 9.8 mg/dL (8.4-10.2); Carbon Dioxide 20 mmol/L (22-30); Chloride 105 mmol/L (98-107); Globulin 2.1 g/dL; Glucose 80 mg/dL (74-99); Non-African American GFR(CKD) 69 (>60 ml/min/1.73 sqM); Phosphorus 3.2 mg/dL (2.5-4.5); Potassium 3.8 mmol/L (3.5-5.1); Sodium 139 mmol/L (137-145)
[2022-04-03 07:48] LABS: ALT 17 U/L (4-49)
[2022-04-03] MEDS: SYMBICORT 80-4.5 MCG INHALER INHALATION SCH ×2 (08:11→21:19)
[2022-04-03] MEDS: IPRATROPIUM 0.5 MG/2.5 ML NEBU INHALATION SCH ×4 (08:11→21:19)
[2022-04-03] MEDS: QUEtiapine 25 MG TAB PO SCH (08:22)
[2022-04-03] MEDS: GABAPENTIN 100 MG CAP PO SCH ×2 (08:22→21:46)
[2022-04-03] MEDS: bisacodyL 5 MG TABLET.DR PO SCH (08:22)
[2022-04-03] MEDS: SENNOSIDES-DOCUSATE SODIUM 1 EACH TAB PO SCH ×2 (08:22→22:09)
[2022-04-03] MEDS: LORazepam 0.5 MG TAB PO PRN (08:22)
[2022-04-03] MEDS: polyethylene glycoL 3350 17 GM POWD.PACK PO SCH (08:22)
[2022-04-03] MEDS: DEXAMETHASONE SOD PHOS (MDV) 100 MG/10 ML VIAL IVP SCH (08:23)
[2022-04-03] MEDS: PANTOPRAZOLE 40 MG/10 ML VIAL IVP SCH ×2 (08:23→22:10)
[2022-04-03] MEDS: HYDROcodone/APAP 7.5-325MG 1 EACH TAB PO PRN (08:34)
--- NOTE | 2022-04-03 09:35 | P.PN ---
Subjective Progress Note Date: 04/03/22 Principal diagnosis: Renal mass The patient is a 61-year-old male patient, known history of CLL on Calquence, chronic kidney stage III, COPD. He presented to the [facility] on 03/18/22 with abdominal pain has been going on for few weeks with progressive worsening over the past fe w days. Patient is nauseous but no vomiting. No hematemesis. No hematuria. Patient was taken [id number] naproxen and ibuprofen for his pain control for the past few days. He stated that he was supposed to follow-up with Dr. Faulkner from oncology last month but he canceled his appointment. Patient has a chronic exertional dyspnea, but it seems to be worsening. He is known to have COPD maintained on 3L home O2, and a combination of Advair and Spiriva on outpatient basis. He also carries a diagnosis of CLL that was followed up by Dr. Faulkner. He is known to have extensive lymphadenopathy related to his CLL. Based on the most recent oncology evaluation, there has been progression his CLL based on progression his lymphadenopathy. In the [facility], the patient was found to have a coagulation profile was abnormal, and the patient has been quite neuropathic even prior admissions. An abdominal CT of the abdomen and pelvis was done and it showed a left perinephric/retroperitoneal soft tissue density which is either a mass versus hematoma and this was not present on previous evaluation or there has been probably a subtle finding in 2020. There is also overall worsening in the lymphadenopathy about the abdomen and ascending into the mediastinum with splenomegaly. The patient also had small bilateral pleural effusions L>R. Abdominal ultrasound was then completed revealing a left perinephritic complex vascular mass, recommending further evaluation with MRI. MRI with and without contrast revealed large posterior perinephrotic mass with massive retroperitoneal adenopathy and massive splenomegaly. Oncology consulted interventional radiology to perform biopsy of renal mass. I NR remains elevated, unable to complete biopsy until INR has improved. Patient given vitamin K. On 03/23/22, patient was found to be hypoxic and had increasing oxygen needs. Repeat x-ray revealed increasing left lower lobe effusion. Pulmonology re-consulted at this time for evaluation. On 03/25/22 ultrasound of chest was completed which revealed an 11.8 cm pleural effusion pocket. Patient will likely need to undergo thoracentesis. However, INR still remains elevated at this time despite receiving multiple doses of Vitamin K. Oncology and interventional radiology continue to follow. The patient will also undergo biopsy of renal mass. Both the thoracentesis and the renal biopsy is on hold until the patient's INR is less than 1.5. 03/26 The patient was lethargic during examination. He was confused and unable to follow a conversation fully. He did state he still has lower left quadrant pain, but it is mild and much better today. He received Dilaudid prior to examination. Spoke with the patient's nephew, Dejon, via telephone. He states he is the patient's next of kin and would like to be updated regularly. He was told the patient's procedures are still on hold because his blood is too thin despite the vitamin K that was given. Awaiting oncology's recommendations. Dejon has never had conversations with the patient regarding his goals of care or wishes. Code status discussed at length. Dejon would like to wait for the renal biopsy and the thoracentesis before deciding on a plan of care moving forward. He would like the patient to remain a full code. 03/27 The patient is lying in bed and appears uncomfortable. He c/o LLQ pain. No family present at time of examination. Patient still slightly confused and has garbled speech.The patient's Fentanyl patch was discontinued yesterday. Per RN, the patient was barely responsive and Narcan had to be administered. Low d ose Dwarf ATC was added to pain regimen in attempt to keep pain more controlled. Dilaudid IV still available prn for severe pain. Discussed pain medication plan with RN, requested she call with any issues. Patient will likely need anther adjustment in pain medication. The patient denies any nausea. He states he has not been eating much due to a loss of appetite. Wanda added. The patient is currently on 9L NC with slightly labored breathing. SPO2 94%. Awaiting pulmonary to determine if patient will be able to have a thoracentesis today, INR 3.3 today despite receiving vitamin K. 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 Oncology has left message for IR as a biopsy for possible transformation of CLL is needed and per their message Saturday was holding off related to coagulopathy. Returned to patient's bedside to reassess pain. The patient woke up easily. He was a little confused as to where he was and what was going on. He reoriented easily. He stated his pain was "ok". The patient's nephew was present. Education was provided regarding the underlying conditions and poor prognosis. Code status was also addressed again. The patient's nephew is unsure about what to do. He would like to take some time to talk with the patient and his family. The patient is to remain a full code for now. The pulmonary service feels given the patients high INR, a thoracentesis would not be safe at this time. They do not feel like he would tolerate the procedure well. A lymph node biopsy is scheduled to be done later this afternoon. 03/28 The patient is lethargic, but awakens easily. He c/o abdominal pain. Dwarf dose increased to 7.5/325mg. The patient is very weak and debilitated. Code status addressed with patient who stated "I don't know". He is confused and unable to follow a conversation fully. His insight and judgment is not intact at this time. Spoke to oncology LAYBOY OPERATOR via telephone. She is hoping the retroperitoneal mass biopsy results come back tomorrow. She stated if his lymphoma has transformed to [place], it is very treatable and even considered curable. Updated the patient's nephew (DPOA), Dejon, via telephone. He is agreea ble in waiting for biopsy results before considering hospice. However, Dejon did agree to make the patient a DNR. 03/29 The patient was able to tell me he is in the hospital, the correct year, and his last name. He is lethargic, but wakens easily. Patient was receiving IV Dilaudid approximately every 2 hours despite scheduled Dwarf. Pain regimen changed to a low dose Fentanyl patch, and Dwarf and Dilaudid prn. Awaiting biopsy results for plan of care. Patient's nephew updated. 03/30 Patient resting in bed with eyes closed, no distress noted. Awakens easily to verbal stimulus. Stated he is "alright", and his pain is "ok" right now. Patient process safety engineer at bedside. Patient's nephew and sister is at the bedside. They stated they came early in hopes of talking to some of the physic ians, especially oncology. Contacted oncology in attempt of getting a time frame for their patient rounds the family. LAYBOY OPERATOR stated they are in the clinic this morning and will start rounding approximately 1300. Family awaiting biopsy results to make decisions moving forward, hospice vs. aggressive treatment. They have multiple questions regarding treatment if the patient's lymphoma has in fact transformed to Ruffin's. Plans in place for PICC line placement and TPN. Education provided regarding pain medication regimen. They agree patient appears comfortable. 1500 Family awaiting oncology for update. Patient going to IR for PICC line placement. Spoke to RN and family, asked them to call if any questions or concerns. There is no palliative care coverage over the weekend. Family given personal cell phone number to call if needed. 04/02 Patient confused, restless, and pulling at telemetry cables when examined. Nephew asleep at bedside. The patient states it is 2021 correctly, but when asked what month it is he states it is 2021 again. He stated he was in the [facility], but did not know what building he was in when asked specifically. He does not know who the president is either. Seroquel added BID. He stated his abdomen hurts a lot, but was unable to give a number of severity on a scale of 1-10. Fentanyl patch dose increased. Spoke to RN regarding new pain regimen. Patient process safety engineer at bedside. The oncologist had a lengthy discussion with the family on Saturday. They were advised that clinically the patient is more likely to either progressive CLL, or transformation to a more aggressive lymphoproliferative malignancy subtype, with the latter being favored. As most of lymphoproliferative malignancies are very treatable, but, specifically fast responses to treatment, it would be reasonable to continue aggressive supportive care with plan for active treatment, assuming pathology confirms a treatable. Awaiting the final pathology to decide for definitive regimen, it was recommended that the patient be treated with high-dose Decadron. The family was also advised that if the pathology showed a new, hard to treat malignancy, or a very aggressive lymphoid malignancy, requiring very high-dose regimens, it would be very reasonable to consider comfort care. In addition, the patient continued to decline, while on high-dose Decadron, it would also be recommended to consider the same. They had decided to continue current aggressive medical management. Objective - Vital Signs Vital signs: Vital Signs Temp 97.8 F 07/19/22 05:07 Pulse 111 H 04/03/22 05:07 Resp 12 04/03/22 05:07 BP 127/78 04/03/22 05:07 Pulse Ox 94 L 04/03/22 05:07 FiO2 50 03/26/22 08:39 Intake & Output 04/02/22 04/03/22 04/03/22 18:59 06:59 18:59 Intake Total 798 Output Total 0 500 Balance 0 298 Weight 55 kg Intake: Intake, IV Titration 648 Amount Fat Emulsion 20% 500 ml 648 In Empty Bag 1 bag @ 42 mls/hr IV Fr PRIMO Rx#: [id number] Oral 150 Output: Urine 500 Stool 0 Other: Voiding Method Urinal Diaper - Exam General: Patient lethargic. No acute distress. Appears frail, cachectic, and older than stated age. HEENT: Head is atraumatic, normocephalic Sclerae are clear. Pupils equal, round and reactive to light bilaterally. CV: Heart regular in rate and rhythm positive S1 and S2. No clicks, rubs or murmurs. Peripheral pulses equal. 2/4 Lungs: CTA No wheezes rales or rhonchi. Respirations even and slightly labored. 7L NC Abdomen/GI: Soft. Bowel sounds present in all 4 quadrants. Bowel sounds normoactive. + abdominal tenderness. : Owen catheter in place draining clear, yellow urine Musculoskeletal/ Extremities: DENNIS, + generalized weakness Vascular: Radial pulses equal. 2/4, no peripheral edema Skin: Warm and dry. No rash. Neurologic: Oriented times 1-2, confused and mumbles words. Follows commands. Restless and fidgety Psychiatric: Anxious - Labs CBC & Chem 7: 04/01/22 06:58 04/03/22 06:22 Labs: Abnormal Lab Results - Last 24 Hours (Table) 04/02/22 04/03/22 04/03/22 Range/Units 10:18 00:10 06:22 Carbon Dioxide 18 L 20 L (22-30) mmol/L BUN 47 H 47 H (9-20) mg/dL POC Glucose (mg/dL) 116 H (70-110) mg/dL Total Protein 6.2 L 6.0 L (6.3-8.2) g/dL Assessment and Plan Assessment: Symptoms * Pain - "hurts a lot" pointing to abdomen. Continue Tylenol, Neurotin, Fentanyl patch and Dilaudid. Dwarf changed to Q6H ATC * Fatigue - Generalized weakness and fatigue, continue TPN * SOB - Yes- chronic dyspnea on exertion, Continue Symbicort, Albuterol, Atrovent and Lasix. On 7L NC. * Insomnia - Occasional, Continue Melatonin prn * N/V - Occasional nausea, Continue Zofran prn * Anxiety - Yes, continue Ativan and Klonopin * Depression - No, Continue Paxil * Confusion - Yes, Seroquel added BID * Agitation - Occasional, especially at night or with poor pain control, Seroquel increased to 50mg BID * Hallucinations - No * Appetite/weight loss - + loss of appetite and recent weight loss, encourage PO intake, continue with regular diet and ensure TIDWM and magic cups. Continue Megace. Continue TPN * Dysphagia - No * Constipation - LBM 04/01 x 2. Continue Senokot -S and Miralax daily. Dulcolax suppository prn. * Incontinence - Owen catheter in place * Itch - No Plan: Summary/Goals - The patient is restless and confused. He is awake,alert, and oriented to self. He stated he is in [facility]. When asked the month and year he answered 2021 for both questions. No family present at time of e xamination. He c/o abdominal pain. Nursing staff does not seem to be utilizing the prn Dwarf, but is giving the IV Dilaudid. Dwarf changed to Q6H ATC. Continue Fentanyl patch. 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 Spoke with patient's nephew, Dejon, via telephone and reviewed the plan to start chemo today and the revised pain regimen. All questions answered Advanced Directives - No, none on file Code Status - DNR Thank you for this consult Antonella Paz [facility]- Palliative Care Spectralink [id number] Email: [email or web address] Time with Patient: Less than 30
[2022-04-03 10:53] LABS: HGB 16.1 g/dL (13.0-17.0); MCHC 28.2 g/dL (32.0-37.0); Mean Platelet Volume 9.2 fL (9.5-12.2); NRBC Per 100 WBC 0.3 /100 WBCS (0.0-0.0); Platelet Count 333 X 10*3/uL (140-440); RBC 7.31 X 10*6/uL (4.40-5.60); RDW 21.9 % (11.5-14.5); WBC 15.39 X 10*3/uL (4.50-10.00)
[2022-04-03 11:29] LABS: Glucose,Whole Blood 95 mg/dL (70-110)
--- NOTE | 2022-04-03 11:31 | P.PN ---
Subjective Progress Note Date: 04/03/22 Hospital course: Patient is a very pleasant 61-year-old male with a past medical history of CLL on [place], chronic kidney stage III, and COPD. He presented to the emergency department on 03/18/22 with a chief complaint of left flank pain. Patient reported this pain began approximately a few weeks ago and significantly worsened over the past few days. He reported the pain still left flank and was accompanied by nausea. He underwent full evaluation in the emergency department. He was found to have significant leukocytosis with WBC count of 18.9 and an acute kidney injury with BUN 26, creatinine 1.72, and GFR 41. Urinalysis was negative for blood, protein, or infection. Covid PCR negative. CT abdomen and pelvis revealed a left perinephritic/retroperitoneal soft tissue suspicious for mass with overall worsening of previously known lymphadenopathy throughout the abdomen and ascending into the mediastinum with persistent splenomegaly consistent with his prior history of lymphoma along with increase and bilateral pleural effusions with left greater than right. Patient was admitted under our services with consultation to oncology, vascular surgery, nephrology, and urology. Abdominal ultrasound was completed revealing a left perinephritic complex vascular mass, recommending further evaluation with MRI. MRI with and without contrast revealed large posterior perinephrotic mass with massive retroperitoneal adenopathy and massive splenomegaly. Oncology consulted interventional radiology to perform biopsy of renal mass. INR remains elevated, unable to complete biopsy until INR has improved. Patient given vitamin K. On 03/23/22, patient was found to be hypoxic and had increasing oxygen needs. Repeat x-ray revealed increasing left lower lobe effusion. Pulmonology re-consulted at this time for evaluation. On 03/25/22 ultrasound of chest was completed which revealed an 11.8 cm pleural effusion pocket. Patient will likely need to u ndergo thoracentesis, however due to persistently elevated INR it was deemed unsafe to perform at this time. Patient currently on palliative care and underwent renal mass biopsy on 03/27/22. He was started on high-dose steroids, pending biopsy results. 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 Patient to receive the fifth dose of steroids and to be started on CHOP chemotherapy later today. and has been started on high-dose steroids by hematology/oncology team with plans to start CHOP chemotherapy on 04/03/22. Physical exam: Pt seen and fully evaluated at bedside this morning, patient awake and appeared to be slightly agitated. Patient reports feeling hot. Sitter is at bedside. RN reports intermittent agitation and confusion. Patient does have episodes of confusion but also does answer questions appropriately when specifically asked. Patient is scheduled to receive fifth dose of high-dose steroids followed by CHOP chemotherapy later today. Plans discussed with oncology, hopeful to see improvement in the next 24-48 hours. Vital signs reviewed and stable. General: Nontoxic, no distress and appears stated age. Thin, malnourished. Derm: Skin warm and dry, normal coloration for ethnicity. Head: Atraumatic, normocephalic and symmetric. Eyes: EOMs intact, no lid lag, and anicteric sclera Mouth: no lip lesions, mucus membranes moist Cardiovascular: regular rate and rhythm with normal S1S2, no murmur, positive posterior tibial pulses bilaterally, and cap refill < 2 seconds. Lungs: Respirations even, regular, and unlabored on 9 L O2 via venturi mask with FiO2 of 50%. Lungs diminished with absent breath sounds in left mid and lower lung. No rhonchi, rales, wheezes or crackles present, and no accessory muscle usage. Abdominal: soft, Bowel sounds 4 quadrants. Ext:No gross muscle atrophy, no edema, no contractures. Patient withdraws from pain. Neuro/Psych: Alert and oriented, GCS 15. No neurological deficits noted Assessment and Plan of Care: CLL Left perinephric complex mass status post biopsy on 03/27/22 Massive splenomegaly -MRI with and without contrast revealed large posterior perinephrotic mass with massive retroperitoneal adenopathy and massive splenomegaly. -Pain control with IV Dilaudid and oncology added on fentanyl patch -Hematology/oncology following, started patient on high-dose steroids 5 days with plans to begin dose of CHOP chemotherapy later today. -Biopsy has resulted and results revealing high-grade B- cell non-Hodgkin's lymphoma consistent with diffuse large B-cell lymphoma. Acute encephalopathy, improving -Likely multifactorial secondary to delirium resulting from medication administration as patient on high-dose steroids as well as narcotics -Neuro checks -Fall precautions -Sitter to remain at bedside to maintain patient's safety. -Safe and supportive care with redirection/reorientation as needed. Leukocytosis -Believed to be reactive secondary to high-dose steroid administration. -We will continue to monitor closely for any signs of infection and with repeat a.m. labs. KEERTHI on CKD, improving Hypercalcemia secondary to underlying lymphoma, improving -Nephrology following, appreciate recommendations -Improved with IV fluid hydration. Acute respiratory failure with hypoxia secondary to large left pleural effusion -Ultrasound chest completed revealing an 11.8 cm pleural effusion pocket -Pulmonology following, recommending patient undergo thoracentesis, however due to persistently elevated INR it is deemed unsafe to perform at this time. -Continue with oxygen supplementation to maintain SpO2 equal to or greater than 90%. Severe protein malnourishment -Continue TPN Chronic coagulopathy Chronic anemia of chronic disease Lupus anticogulant -Secondary to CLL, hematology/oncology following. Hypomagnesemia, replaced COPD without acute exacerbation -Continue Symbicort 2 puffs twice daily along with PRN nebulizer treatments for shortness of breath and/or wheezing. CODE STATUS: Full code DVT prophylaxis: SCDs Discussed with: Patient, RN and hematology Anticipated discharge date: Clinical course to determine Anticipated discharge place: Clinical course to determine A total of 39 minutes was spent on the care of this complex patient more than 50% of the time was spent in counseling and care coordination. Eliseo Sanon NP rendered care for this patient independently, reviewed the findings and plan as documented in the note above. I did not physically speak with or examine the patient on this date. Objective - Vital Signs Vital signs: Vital Signs Temp 97.8 F 04/03/22 05:07 Pulse 111 H 04/03/22 05:07 Resp 12 04/03/22 05:07 BP 127/78 04/03/22 05:07 Pulse Ox 94 L 04/03/22 05:07 FiO2 50 03/26/22 08:39 Intake & Output 04/02/22 04/03/22 04/03/22 18:59 06:59 18:59 Intake Total 798 Output Total 0 500 Balance 0 298 Weight 55 kg Intake: Intake, IV Titration 648 Amount Fat Emulsion 20% 500 ml 648 In Empty Bag 1 bag @ 42 mls/hr IV Fr PRIMO Rx#: [id number] Oral 150 Output: Urine 500 Stool 0 Other: Voiding Method Urinal Diaper - Labs CBC & Chem 7: 04/03/22 06:22 04/03/22 06:22 Labs: Abnormal Lab Results - Last 24 Hours (Table) 07/04/03/22 04/03/22 Range/Units 10:18 00:10 06:22 Carbon Dioxide 18 L 20 L (22-30) mmol/L BUN 47 H 47 H (9-20) mg/dL POC Glucose (mg/dL) 116 H (70-110) mg/dL Total Protein 6.2 L 6.0 L (6.3-8.2) g/dL
[2022-04-03 11:51] LABS: LDH 877 U/L (313-618)
[2022-04-03] MEDS: 1: MVI, ADULT NO.4 WITH VIT K 10 ML, TRACE (CONC-1ML/DOSE) 1 ML, SODIUM ACETATE 30 MEQ, IV SCH ×7 (12:07)
[2022-04-03] MEDS: MEGESTROL 400 MG/10 ML CUP PO SCH (12:08)
[2022-04-03] MEDS ORDERED: HYDROcodone/APAP 7.5-325MG 1 EACH TAB PO SCH (13:00)
[2022-04-03] MEDS: predniSONE 50 MG TAB PO SCH (13:38)
[2022-04-03] MEDS ORDERED: DEXAMETHASONE SOD PHOSPHATE 10 MG/ML 1 ML VIAL IV ONE (14:00)
[2022-04-03] MEDS ORDERED: ONDANSETRON 16 MG in SODIUM CHLORIDE 0.9% 50 ML IVPB ONE (14:00)
[2022-04-03] MEDS ORDERED: APREPITANT 130 MG/18 ML VIAL IV ONE (14:00)
[2022-04-03] MEDS ORDERED: FAMOTIDINE 20 MG/2 ML VIAL IV ONE (14:00)
--- NOTE | 2022-04-03 14:19 | P.PN ---
Subjective Patient is seen in follow-up for acute kidney injury on chronic kidney disease. Renal function fairly stable. Calcium level 9.8. Calcium level 10.8 yesterday. Has Mays catheter for retention. Nonoliguric. More awake today. Family present at bedside. Vital signs are stable. General: Appears lethargic. HEENT: Head exam is unremarkable. LUNGS: Breath sounds decreased. HEART: Rate and Rhythm are regular. ABDOMEN: Soft, no distention. EXTREMITITES: No edema. Objective - Vital Signs Vital signs: Vital Signs Temp 97.7 F 04/03/22 11:16 Pulse 114 H 04/03/22 11:16 Resp 10 L 04/03/22 11:16 BP 132/79 04/03/22 11:16 Pulse Ox 90 L 04/03/22 11:16 FiO2 50 03/26/22 08:39 Intake & Output 04/02/22 04/03/22 04/03/22 18:59 06:59 18:59 Intake Total 798 Output Total 0 500 Balance 0 298 Weight 55 kg 55 kg Intake: Intake, IV Titration 648 Amount Fat Emulsion 20% 500 ml 648 In Empty Bag 1 bag @ 42 mls/hr IV Fr PRIMO Rx#: [id number] Oral 150 Output: Urine 500 Stool 0 Other: Voiding Method Urinal Indwelling Catheter Diaper - Labs CBC & Chem 7: 04/03/22 06:22 04/03/22 06:22 Labs: Abnormal Lab Results - Last 24 Hours (Table) 04/03/22 04/03/22 04/03/22 Range/Units 00:10 06:22 06:22 WBC 15.39 H (4.50-10.00) X 10*3/uL RBC 7.31 H (4.40-5.60) X 10*6/uL Hct 57.0 H (39.6-50.0) % MCV 78.0 L (80.0-97.0) fL MCH 22.0 L (27.0-32.0) pg MCHC 28.2 L (32.0-37.0) g/dL RDW 21.9 H (11.5-14.5) % MPV 9.2 L (9.5-12.2) fL Absolute Nucleated RBC 0.04 H (0.00-0.00) X 10*3/uL NRBC/100 WBC Diff 0.3 H (0.0-0.0) /100 WBCS Carbon Dioxide 20 L (22-30) mmol/L BUN 47 H (9-20) mg/dL POC Glucose (mg/dL) 116 H (70-110) mg/dL Uric Acid 11.0 H (3.5-8.5) mg/dL Lactate Dehydrogenase 877 H (313-618) U/L Total Protein 6.0 L (6.3-8.2) g/dL Assessment and Plan Plan: Assessment: 1. Acute kidney injury mostly prerenal secondary to nonsteroidals, hypovolemia and hypercalcemia. Creatinine peaked at 1.9 this admission - 1.13 today. UA b enign. No hydronephrosis noted on CAT scan. 2. Chronic kidney disease stage IIIA with baseline creatinine in the range of 1.2-1.3 secondary to nephrosclerosis. 3. Left lower quadrant abdominal pain. Left kidney mass versus hematoma noted on CAT scan. Oncology and urology following. MRI showed large posterior left perinephric mass related to lymphoma. Retroperitoneal adenopathy noted. Biopsy positive for high-grade lymphoma. 4. Hypercalcemia secondary to hypovolemia and lymphoma. Calcium level trending down. Not on any vitamin D or calcium supplementation. Improved. PTH low at 2.3. Vitamin D level 43.6. BEATRICE 20. Serum immunofixation showed IgG Paraprotein. 1,25D3 high at 98. Oncology following. 5. History of CLL. Oncology following. 6. Metabolic acidosis secondary to acute kidney injury and IV fluids. Status post po bicarb. 7. Hypomagnesemia from poor intake and diuresis. Replaced. Better. 8. Volume overload. s/p Lasix. Improved. Plan: Patient has hypercalcemia with an elevated calcitriol level which is due to enhanced calcitriol production from the underlying malignancy - on steroids. If no improvement in calcium level, will repeat zoledronic acid. If refractory to zoledronic acid, will consider denosumab. Encouraged oral intake. Receiving TPN. Avoid nephrotoxins. Continue to monitor renal function and urine output. Started on chemotherapy per oncology today.
[2022-04-03] MEDS ORDERED: DOXORUBICIN HCL IV ONE ×2 (15:00)
[2022-04-03] MEDS ORDERED: SODIUM CHLORIDE 0.9% IV ONE (15:00)
[2022-04-03] MEDS ORDERED: CYCLOPHOSPHAMIDE IV ONE (15:00)
[2022-04-03] MEDS ORDERED: SALT AND SODA MOUTHWASH 1,000 ML PO PRN (15:56)
--- NOTE | 2022-04-03 16:32 | P.PN ---
Subjective Progress Note Date: 04/03/22 Principal diagnosis: Ricters Transformation IN f/u pt is still weak, fair oral intake, mouth is irritated. Objective - Vital Signs Vital signs: Vital Signs Temp 97.7 F 04/03/22 11:16 Pulse 96 04/03/22 16:20 Resp 10 L 04/03/22 11:16 BP 132/79 04/03/22 11:16 Pulse Ox 90 L 04/03/22 11:16 FiO2 50 03/26/22 08:39 Intake & Output 04/02/22 04/03/22 04/03/22 18:59 06:59 18:59 Intake Total 798 Output Total 0 500 Balance 0 298 Weight 55 kg 55 kg Intake: Intake, IV Titration 648 Amount Fat Emulsion 20% 500 ml 648 In Empty Bag 1 bag @ 42 mls/hr IV Fr PRIMO Rx#: [id number] Oral 150 Output: Urine 500 Stool 0 Other: Voiding Method Urinal Indwelling Catheter Diaper - Constitutional General appearance: Present: average body habitus, cooperative, no acute distress - EENT EENT Comment(s): mod/severe oral irritation Eyes: Present: anicteric sclerae, EOMI - Respiratory Respiratory: bilateral: CTA - Cardiovascular Heart sounds: normal: S1, S2 - Peripheral edema leg Peripheral Edema: bilateral: None - Gastrointestinal General gastrointestinal: Present: normal bowel sounds, soft - Musculoskeletal Musculoskeletal: Present: generalized weakness - Labs CBC & Chem 7: 04/03/22 06:22 04/03/22 06:22 Labs: Abnormal Lab Results - Last 24 Hours (Table) 04/03/22 04/03/22 04/03/22 Range/Units 00:10 06:22 06:22 WBC 15.39 H (4.50-10.00) X 10*3/uL RBC 7.31 H (4.40-5.60) X 10*6/uL Hct 57.0 H (39.6-50.0) % MCV 78.0 L (80.0-97.0) fL MCH 22.0 L (27.0-32.0) pg MCHC 28.2 L (32.0-37.0) g/dL RDW 21.9 H (11.5-14.5) % MPV 9.2 L (9.5-12.2) fL Absolute Nucleated RBC 0.04 H (0.00-0.00) X 10*3/uL NRBC/100 WBC Diff 0.3 H (0.0-0.0) /100 WBCS Carbon Dioxide 20 L (22-30) mmol/L BUN 47 H (9-20) mg/dL POC Glucose (mg/dL) 116 H (70-110) mg/dL Uric Acid 11.0 H (3.5-8.5) mg/dL Lactate Dehydrogenase 877 H (313-618) U/L Total Protein 6.0 L (6.3-8.2) g/dL Assessment and Plan (1) DLBCL (diffuse large B cell lymphoma) Current Visit: Yes Status: Acute Priority: High Code(s): C83.30 - DIFFUSE LARGE B-CELL LYMPHOMA, UNSPECIFIED SITE SNOMED Code(s): 453842352 (2) Mucositis Current Visit: Yes Status: Acute Priority: High Code(s): K12.30 - ORAL MUCOSITIS (ULCERATIVE), UNSPECIFIED SNOMED Code(s): 12801701 Plan: 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 Cycle #1 CHOP. Cont supportive care Oral meds for mucositis Daily f/u attests: I have seen pt, performed H&P, developed impression and plan of care. Discussed with dictator. Agree with dictation, documented as a scribe.
[2022-04-03 17:12] LABS: Glucose,Whole Blood 157 mg/dL (70-110)
[2022-04-03] MEDS: HYDROcodone/APAP 7.5-325MG 1 EACH TAB PO SCH ×2 (17:19→23:43)
[2022-04-03] MEDS: DRY MOUTH SPRAY 44.3 SPRAY/44.3 ML SPRAY MUCOUS MEM SCH ×3 (17:27→23:43)
[2022-04-03] MEDS: MAG HYDROX/AL HYDROX/SIMETH 30 ML, LIDOCAINE VISCOUS 2% 30 ML, diphenhydrAMINE ELIXIR 7... PO SCH ×10 (17:27→22:10)
[2022-04-03] MEDS ORDERED: RASBURICASE 6 MG in SODIUM CHLORIDE 0.9% 46 ML IV ONE (20:00)
[2022-04-03] MEDS: SALT AND SODA MOUTHWASH 1,000 ML PO SCH (20:19)
[2022-04-03] MEDS: QUEtiapine 50 MG TAB PO SCH (22:10)
[2022-04-03] MEDS: PARoxetine 20 MG TAB PO SCH (22:10)
[2022-04-03 23:45] LABS: Glucose,Whole Blood 137 mg/dL (70-110)
[2022-04-04] MEDS: 1: MVI, ADULT NO.4 WITH VIT K 10 ML, TRACE (CONC-1ML/DOSE) 1 ML, SODIUM ACETATE 30 MEQ, IV SCH ×14 (05:01→18:01)
[2022-04-04] MEDS: DRY MOUTH SPRAY 44.3 SPRAY/44.3 ML SPRAY MUCOUS MEM SCH ×6 (05:06→23:30)
[2022-04-04 06:13] LABS: Glucose,Whole Blood 166 mg/dL (70-110)
[2022-04-04] MEDS: IPRATROPIUM 0.5 MG/2.5 ML NEBU INHALATION SCH ×4 (07:19→19:04)
[2022-04-04] MEDS: SYMBICORT 80-4.5 MCG INHALER INHALATION SCH ×2 (07:20→19:04)
[2022-04-04] MEDS: MAG HYDROX/AL HYDROX/SIMETH 30 ML, LIDOCAINE VISCOUS 2% 30 ML, diphenhydrAMINE ELIXIR 7... PO SCH ×15 (08:14→20:57)
[2022-04-04] MEDS: predniSONE 50 MG TAB PO SCH (08:15)
[2022-04-04] MEDS: SENNOSIDES-DOCUSATE SODIUM 1 EACH TAB PO SCH ×2 (08:15→20:40)
[2022-04-04] MEDS: MEGESTROL 400 MG/10 ML CUP PO SCH (08:15)
[2022-04-04] MEDS: HYDROcodone/APAP 7.5-325MG 1 EACH TAB PO SCH ×3 (08:16→23:30)
[2022-04-04] MEDS: bisacodyL 5 MG TABLET.DR PO SCH (08:16)
[2022-04-04] MEDS: GABAPENTIN 100 MG CAP PO SCH ×2 (08:16→20:40)
[2022-04-04] MEDS: QUEtiapine 50 MG TAB PO SCH ×2 (08:16→20:41)
[2022-04-04] MEDS: polyethylene glycoL 3350 17 GM POWD.PACK PO SCH (08:17)
[2022-04-04] MEDS: PANTOPRAZOLE 40 MG/10 ML VIAL IVP SCH ×2 (08:17→20:41)
[2022-04-04] MEDS: SALT AND SODA MOUTHWASH 1,000 ML PO SCH ×3 (08:18→17:17)
[2022-04-04 09:44] LABS: Basophils # (A) 0.03 X 10*3/uL (0.00-0.10); Basophils % (A) 0.2 %; Eosinophils # (A) 0 X 10*3/uL (0.04-0.35); Eosinophils % (A) 0 %; HCT 50.4 % (39.6-50.0); HGB 14.2 g/dL (13.0-17.0); Immature Grans, Automated 1.5 %; Lymphocytes # (A) 3.92 X 10*3/uL (0.90-5.00); Lymphocytes % (A) 29.9 %; MCH 22.2 pg (27.0-32.0); MCHC 28.2 g/dL (32.0-37.0); MCV 78.9 fL (80.0-97.0); Mean Platelet Volume 9.5 fL (9.5-12.2); Monocytes % (A) 4.6 %; NRBC Per 100 WBC 0.2 /100 WBCS (0.0-0.0); Neutrophils # (A) 8.38 X 10*3/uL (1.80-7.70); Neutrophils % (A) 63.8 %; Platelet Count 298 X 10*3/uL (140-440); RBC 6.39 X 10*6/uL (4.40-5.60); RDW 21.1 % (11.5-14.5); WBC 13.13 X 10*3/uL (4.50-10.00)
[2022-04-04 09:51] LABS: African American GFR (CKD) 74.1 (60.0-200.0); Albumin 3.6 g/dL (3.8-4.9); Albumin/Globulin Ratio 2.4 (1.60-3.17); Anion Gap 17.5 mmol/L (10.00-18.00); BUN/Creat Ratio 47.58 Ratio (12.00-20.00); Blood Urea Nitrogen 57.1 mg/dL (9.0-27.0); Calcium 9.1 mg/dL (8.7-10.3); Carbon Dioxide 18.5 mmol/L (20.0-27.5); Globulin 1.5 g/dL (1.6-3.3); Magnesium 2.4 mg/dL (1.5-2.4); Potassium 4.5 mmol/L (3.5-5.5); Total Bilirubin 0.6 mg/dL (0.30-1.20); Total Protein 5.1 g/dL (6.2-8.2); Uric Acid 8.7 mg/dL (3.7-8.7)
--- NOTE | 2022-04-04 09:56 | P.PN ---
Subjective Progress Note Date: 04/04/22 Principal diagnosis: Renal mass The patient is a 61-year-old male patient, known history of CLL on [place], chronic kidney stage III, COPD. He presented to the [facility] on 03/18/22 with abdominal pain has been going on for few weeks with progressive worsening over the past fe w days. Patient is nauseous but no vomiting. No hematemesis. No hematuria. Patient was taken [id number] naproxen and ibuprofen for his pain control for the past few days. He stated that he was supposed to follow-up with Dr. Faulkner from oncology last month but he canceled his appointment. Patient has a chronic exertional dyspnea, but it seems to be worsening. He is known to have COPD maintained on 3L home O2, and a combination of Advair and Spiriva on outpatient basis. He also carries a diagnosis of CLL that was followed up by Dr. Faulkner. He is known to have extensive lymphadenopathy related to his CLL. Based on the most recent oncology evaluation, there has been progression his CLL based on progression his lymphadenopathy. In the [facility], the patient was found to have a coagulation profile was abnormal, and the patient has been quite neuropathic even prior admissions. An abdominal CT of the abdomen and pelvis was done and it showed a left perinephric/retroperitoneal soft tissue density which is either a mass versus hematoma and this was not present on previous evaluation or there has been probably a subtle finding in 2020. There is also overall worsening in the lymphadenopathy about the abdomen and ascending into the mediastinum with splenomegaly. The patient also had small bilateral pleural effusions L>R. Abdominal ultrasound was then completed revealing a left perinephritic complex vascular mass, recommending further evaluation with MRI. MRI with and without contrast revealed large posterior perinephrotic mass with massive retroperitoneal adenopathy and massive splenomegaly. Oncology consulted interventional radiology to perform biopsy of renal mass. I NR remains elevated, unable to complete biopsy until INR has improved. Patient given vitamin K. On 03/23/22, patient was found to be hypoxic and had increasing oxygen needs. Repeat x-ray revealed increasing left lower lobe effusion. Pulmonology re-consulted at this time for evaluation. On 03/25/22 ultrasound of chest was completed which revealed an 11.8 cm pleural effusion pocket. Patient will likely need to undergo thoracentesis. However, INR still remains elevated at this time despite receiving multiple doses of Vitamin K. Oncology and interventional radiology continue to follow. The patient will also undergo biopsy of renal mass. Both the thoracentesis and the renal biopsy is on hold until the patient's INR is less than 1.5. 03/26 The patient was lethargic during examination. He was confused and unable to follow a conversation fully. He did state he still has lower left quadrant pain, but it is mild and much better today. He received Dilaudid prior to examination. Spoke with the patient's nephew, Dejon, via telephone. He states he is the patient's next of kin and would like to be updated regularly. He was told the patient's procedures are still on hold because his blood is too thin despite the vitamin K that was given. Awaiting oncology's recommendations. Dejon has never had conversations with the patient regarding his goals of care or wishes. Code status discussed at length. Dejon would like to wait for the renal biopsy and the thoracentesis before deciding on a plan of care moving forward. He would like the patient to remain a full code. 03/27 The patient is lying in bed and appears uncomfortable. He c/o LLQ pain. No family present at time of examination. Patient still slightly confused and has garbled speech.The patient's Fentanyl patch was discontinued yesterday. Per RN, the patient was barely responsive and Narcan had to be administered. Low d ose Atkinson ATC was added to pain regimen in attempt to keep pain more controlled. Dilaudid IV still available prn for severe pain. Discussed pain medication plan with RN, requested she call with any issues. Patient will likely need anther adjustment in pain medication. The patient denies any nausea. He states he has not been eating much due to a loss of appetite. Wanda added. The patient is currently on 9L NC with slightly labored breathing. SPO2 94%. Awaiting pulmonary to determine if patient will be able to have a thoracentesis today, INR 3.3 today despite receiving vitamin K. 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 Oncology has left message for IR as a biopsy for possible transformation of CLL is needed and per their message Saturday was holding off related to coagulopathy. Returned to patient's bedside to reassess pain. The patient woke up easily. He was a little confused as to where he was and what was going on. He reoriented easily. He stated his pain was "ok". The patient's nephew was present. Education was provided regarding the underlying conditions and poor prognosis. Code status was also addressed again. The patient's nephew is unsure about what to do. He would like to take some time to talk with the patient and his family. The patient is to remain a full code for now. The pulmonary service feels given the patients high INR, a thoracentesis would not be safe at this time. They do not feel like he would tolerate the procedure well. A lymph node biopsy is scheduled to be done later this afternoon. 03/28 The patient is lethargic, but awakens easily. He c/o abdominal pain. Atkinson dose increased to 7.5/325mg. The patient is very weak and debilitated. Code status addressed with patient who stated "I don't know". He is confused and unable to follow a conversation fully. His insight and judgment is not intact at this time. Spoke to oncology REGULATORY SCIENTIST via telephone. She is hoping the retroperitoneal mass biopsy results come back tomorrow. She stated if his lymphoma has transformed to [place], it is very treatable and even considered curable. Updated the patient's nephew (DPOA), Dejon, via telephone. He is agreea ble in waiting for biopsy results before considering hospice. However, Dejon did agree to make the patient a DNR. 03/29 The patient was able to tell me he is in the hospital, the correct year, and his last name. He is lethargic, but wakens easily. Patient was receiving IV Dilaudid approximately every 2 hours despite scheduled Atkinson. Pain regimen changed to a low dose Fentanyl patch, and Atkinson and Dilaudid prn. Awaiting biopsy results for plan of care. Patient's nephew updated. 03/30 Patient resting in bed with eyes closed, no distress noted. Awakens easily to verbal stimulus. Stated he is "alright", and his pain is "ok" right now. Patient drug safety scientist at bedside. Patient's nephew and sister is at the bedside. They stated they came early in hopes of talking to some of the physic ians, especially oncology. Contacted oncology in attempt of getting a time frame for their patient rounds the family. REGULATORY SCIENTIST stated they are in the clinic this morning and will start rounding approximately 1300. Family awaiting biopsy results to make decisions moving forward, hospice vs. aggressive treatment. They have multiple questions regarding treatment if the patient's lymphoma has in fact transformed to Ruffin's. Plans in place for PICC line placement and TPN. Education provided regarding pain medication regimen. They agree patient appears comfortable. 1500 Family awaiting oncology for update. Patient going to IR for PICC line placement. Spoke to RN and family, asked them to call if any questions or concerns. There is no palliative care coverage over the weekend. Family given personal cell phone number to call if needed. 04/02 Patient confused, restless, and pulling at telemetry cables when examined. Nephew asleep at bedside. The patient states it is 2021 correctly, but when asked what month it is he states it is 2021 again. He stated he was in the [facility], but did not know what building he was in when asked specifically. He does not know who the president is either. Seroquel added BID. He stated his abdomen hurts a lot, but was unable to give a number of severity on a scale of 1-10. Fentanyl patch dose increased. Spoke to RN regarding new pain regimen. Patient drug safety scientist at bedside. The oncologist had a lengthy discussion with the family on Saturday. They were advised that clinically the patient is more likely to either progressive CLL, or transformation to a more aggressive lymphoproliferative malignancy subtype, with the latter being favored. As most of lymphoproliferative malignancies are very treatable, but, specifically fast responses to treatment, it would be reasonable to continue aggressive supportive care with plan for active treatment, assuming pathology confirms a treatable. Awaiting the final pathology to decide for definitive regimen, it was recommended that the patient be treated with high-dose Decadron. The family was also advised that if the pathology showed a new, hard to treat malignancy, or a very aggressive lymphoid malignancy, requiring very high-dose regimens, it would be very reasonable to consider comfort care. In addition, the patient continued to decline, while on high-dose Decadron, it would also be recommended to consider the same. They had decided to continue current aggressive medical management. 04/03 The patient is restless and confused. He is awake,alert, and oriented to self. He stated he is in [facility]. When asked the month and year he answered 2021 for both questions. No family present at time of examination. He c/o abdominal pain. Nursing staff does not seem to be utilizing the prn Atkinson, but is giving the IV Dilaudid. Atkinson changed to Q6H ATC. Continue Fentanyl patch. 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 Spoke with patient's nephew, Dejon, via telephone and reviewed the plan to start chemo today and the revised pain regimen. All questions answered Objective - Vital Signs Vital signs: Vital Signs Temp 97.3 F L 04/04/22 07:57 Pulse 99 04/04/22 07:57 Resp 18 04/04/22 07:57 BP 125/67 04/04/22 07:57 Pulse Ox 90 L 04/04/22 07:57 FiO2 50 03/26/22 08:39 Intake & Output 04/03/22 04/04/22 04/04/22 18:59 06:59 18:59 Intake Total 2162 1039 Output Total 850 600 Balance 1312 439 Weight 55 kg Intake: Intake, IV Titration 2162 1039 Amount Cyclophosphamide 1,000 mg 250 Cyclophosphamide 200 mg In Sodium Chloride 0.9% 250 ml @ 512 mls/hr IV ONCE ONE Rx#:[id number] DOXOrubicin HCL 50 mg 40 DOXOrubicin HCL 30 mg In Empty Syringe 1 syr @ 240 mls/hr IV ONCE ONE Rx#: [id number] Mvi, Adult No.4 with Vit 744 1039 K 10 ml Trace (Conc-1Ml/ Dose) 1 ml Sodium Acetate 30 meq Potassium Chloride 10 meq Magnesium Sulfate gm 1 gm Sodium Phosphate 18 mmol In Amino Acids 5 %/Dextrose 20 % 1,000 ml @ 62 mls/hr IV .BY DURATION [facility] Rx#: [id number] Ondansetron 16 mg In 50 Sodium Chloride 0.9% 50 ml @ 232 mls/hr IVPB ONCE ONE Rx#:[id number] Sodium Acetate 30 meq 1028 Potassium Chloride 10 meq Magnesium Sulfate gm 1 gm Sodium Phosphate 18 mmol In Amino Acids 5 %/ Dextrose 20 % 1,000 ml @ 62 mls/hr IV .BY DURATION [facility] Rx#:[id number] vinCRIStine SULFATE 2 mg 50 In Sodium Chloride 0.9% 50 ml @ 312 mls/hr IV ONCE ONE Rx#:[id number] Output: Urine 850 600 Other: Voiding Method Indwelling Catheter Indwelling Catheter - Exam General: Patient awake and alert. No acute distress. Appears frail and older than stated age. HEENT: Head is atraumatic, normocephalic Sclerae are clear. Pupils equal, round and reactive to light bilaterally. Mouth red and sore. CV: Heart regular in rate and rhythm positive S1 and S2. No clicks, rubs or murmurs. Peripheral pulses equal. 2/4 Lungs: CTA, No wheezes rales or rhonchi. Respirations even and unlabored. 9L NC Abdomen/GI: Soft. Bowel sounds present in all 4 quadrants. Bowel sounds normoactive. + abdominal tenderness. : Mays catheter in place draining clear, yellow urine Musculoskeletal/ Extremities: DENNIS, + generalized weakness, cachectic Vascular: Radial pulses equal. 2/4, no peripheral edema Skin: Warm and dry. No rash. Neurologic: Oriented times 1-2, more alert today. Less agitated/restless. Speech clearer. Follows commands. Still impulsive. Psychiatric: normal affect - Labs CBC & Chem 7: 04/03/22 06:22 04/03/22 06:22 Labs: Abnormal Lab Results - Last 24 Hours (Table) 04/03/22 04/03/22 04/03/22 Range/Units 06:22 06:22 17:04 WBC 15.39 H (4.50-10.00) X 10*3/uL RBC 7.31 H (4.40-5.60) X 10*6/uL Hct 57.0 H (39.6-50.0) % MCV 78.0 L (80.0-97.0) fL MCH 22.0 L (27.0-32.0) pg MCHC 28.2 L (32.0-37.0) g/dL RDW 21.9 H (11.5-14.5) % MPV 9.2 L (9.5-12.2) fL Absolute Nucleated RBC 0.04 H (0.00-0.00) X 10*3/uL NRBC/100 WBC Diff 0.3 H (0.0-0.0) /100 WBCS Carbon Dioxide 20 L (22-30) mmol/L BUN 47 H (9-20) mg/dL POC Glucose (mg/dL) 157 H (70-110) mg/dL Uric Acid 11.0 H (3.5-8.5) mg/dL Lactate Dehydrogenase 877 H (313-618) U/L Total Protein 6.0 L (6.3-8.2) g/dL 04/03/22 04/04/22 Range/Units 23:43 06:12 WBC (4.50-10.00) X 10*3/uL RBC (4.40-5.60) X 10*6/uL Hct (39.6-50.0) % MCV (80.0-97.0) fL MCH (27.0-32.0) pg MCHC (32.0-37.0) g/dL RDW (11.5-14.5) % MPV (9.5-12.2) fL Absolute Nucleated RBC (0.00-0.00) X 10*3/uL NRBC/100 WBC Diff (0.0-0.0) /100 WBCS Carbon Dioxide (22-30) mmol/L BUN (9-20) mg/dL POC Glucose (mg/dL) 137 H 166 H (70-110) mg/dL Uric Acid (3.5-8.5) mg/dL Lactate Dehydrogenase (313-618) U/L Total Protein (6.3-8.2) g/dL Assessment and Plan Assessment: Symptoms * Pain - "hurts a lot" pointing to abdomen. Continue Tylenol, Neurotin, Fentanyl patch and Dilaudid. Atkinson changed to Q8H ATC * Fatigue - Generalized weakness and fatigue, continue TPN * SOB - Yes- chronic dyspnea on exertion, Continue Symbicort, Albuterol, Atrovent and Lasix. On 9L NC. * Insomnia - Occasional, Continue Melatonin prn * N/V - Occasional nausea, Continue Zofran prn * Anxiety - Yes, continue Ativan and Klonopin * Depression - No, Continue Paxil * Confusion - Yes, Seroquel added BID * Agitation - Occasional, especially at night or with poor pain control, Seroquel increased to 50mg BID * Hallucinations - No * Appetite/weight loss - + loss of appetite and recent weight loss, encourage PO intake, continue with regular diet and ensure TIDWM and magic cups. Continue Megace. Continue TPN * Dysphagia - No * Constipation - LBM 04/01 x 2. Continue Senokot -S and Miralax daily. Dulcolax suppository prn. * Incontinence - Mays catheter in place for urinary retention * Itch - No * Mucoitis - good oral hygiene, continue swish and swallow, mouthkote, and salt and soda mouthwash Plan: Summary/Goals - Patient resting in bed with drug safety scientist at bedside. Patient more alert today. He is less restless and does not appear agitated. However, he is still confused and impulsive at times. His speech is clearer and easier to understand. He states he is still having abdominal pain, but it has improved. He is cracking jokes and smiling today. He is scheduled for day 2 of his chemo regimen today. Spoke to Dejon via telephone and updated him. He states he will not be here today to visit, but several other family members will be. Advanced Directives - No, none on file Code Status - DNR Thank you for this consult Antonella Paz [facility] Palliative Care [facility] [id number] Email: [email or web address] Time with Patient: Less than 30
--- NOTE | 2022-04-04 10:30 | P.PN ---
Subjective Patient is seen in follow-up for acute kidney injury on chronic kidney disease. Renal function fairly stable. Calcium level 9.1. Has Mays catheter for retention. Nonoliguric. Await. Somewhat confused. Vital signs are stable. General: Appears lethargic. HEENT: Head exam is unremarkable. LUNGS: Breath sounds decreased. HEART: Rate and Rhythm are regular. ABDOMEN: Soft, no distention. EXTREMITITES: No edema. Objective - Vital Signs Vital signs: Vital Signs Temp 97.3 F L 04/04/22 07:57 Pulse 99 04/04/22 07:57 Resp 18 04/04/22 07:57 BP 125/67 04/04/22 07:57 Pulse Ox 90 L 04/04/22 07:57 FiO2 50 03/26/22 08:39 Intake & Output 04/03/22 04/04/22 04/04/22 18:59 06:59 18:59 Intake Total 2162 1039 Output Total 850 600 Balance 1312 439 Weight 55 kg Intake: Intake, IV Titration 2162 1039 Amount Cyclophosphamide 1,000 mg 250 Cyclophosphamide 200 mg In Sodium Chloride 0.9% 250 ml @ 512 mls/hr IV ONCE ONE Rx#:[id number] DOXOrubicin HCL 50 mg 40 DOXOrubicin HCL 30 mg In Empty Syringe 1 syr @ 240 mls/hr IV ONCE ONE Rx#: [id number] Mvi, Adult No.4 with Vit 744 1039 K 10 ml Trace (Conc-1Ml/ Dose) 1 ml Sodium Acetate 30 meq Potassium Chloride 10 meq Magnesium Sulfate gm 1 gm Sodium Phosphate 18 mmol In Amino Acids 5 %/Dextrose 20 % 1,000 ml @ 62 mls/hr IV .BY DURATION [facility] Rx#: [id number] Ondansetron 16 mg In 50 Sodium Chloride 0.9% 50 ml @ 232 mls/hr IVPB ONCE ONE Rx#:[id number] Sodium Acetate 30 meq 1028 Potassium Chloride 10 meq Magnesium Sulfate gm 1 gm Sodium Phosphate 18 mmol In Amino Acids 5 %/ Dextrose 20 % 1,000 ml @ 62 mls/hr IV .BY DURATION [facility] Rx#:[id number] vinCRIStine SULFATE 2 mg 50 In Sodium Chloride 0.9% 50 ml @ 312 mls/hr IV ONCE ONE Rx#:[id number] Output: Urine 850 600 Other: Voiding Method Indwelling Catheter Indwelling Catheter - Labs CBC & Chem 7: 04/04/22 04:58 04/04/22 04:58 Labs: Abnormal Lab Results - Last 24 Hours (Table) 04/03/22 04/03/22 04/03/22 Range/Units 06:22 06:22 17:04 WBC 15.39 H (4.50-10.00) X 10*3/uL RBC 7.31 H (4.40-5.60) X 10*6/uL Hct 57.0 H (39.6-50.0) % MCV 78.0 L (80.0-97.0) fL MCH 22.0 L (27.0-32.0) pg MCHC 28.2 L (32.0-37.0) g/dL RDW 21.9 H (11.5-14.5) % MPV 9.2 L (9.5-12.2) fL Absolute Nucleated RBC 0.04 H (0.00-0.00) X 10*3/uL Immature Gran # (0.00-0.04) X 10*3/uL Neutrophils # (1.80-7.70) X 10*3/uL Eosinophils # (0.04-0.35) X 10*3/uL NRBC/100 WBC Diff 0.3 H (0.0-0.0) /100 WBCS Carbon Dioxide 20 L (22-30) mmol/L BUN 47 H (9-20) mg/dL BUN/Creatinine Ratio (12.00-20.00) Ratio Glucose (70-110) mg/dL POC Glucose (mg/dL) 157 H (70-110) mg/dL Uric Acid 11.0 H (3.5-8.5) mg/dL Lactate Dehydrogenase 877 H (313-618) U/L Total Protein 6.0 L (6.3-8.2) g/dL Albumin (3.8-4.9) g/dL Globulin (1.6-3.3) g/dL 04/03/22 04/04/22 04/04/22 Range/Units 23:43 04:58 04:58 WBC 13.13 H (4.50-10.00) X 10*3/uL RBC 6.39 H (4.40-5.60) X 10*6/uL Hct 50.4 H (39.6-50.0) % MCV 78.9 L (80.0-97.0) fL MCH 22.2 L (27.0-32.0) pg MCHC 28.2 L (32.0-37.0) g/dL RDW 21.1 H (11.5-14.5) % MPV (9.5-12.2) fL Absolute Nucleated RBC 0.02 H (0.00-0.00) X 10*3/uL Immature Gran # 0.20 H (0.00-0.04) X 10*3/uL Neutrophils # 8.38 H (1.80-7.70) X 10*3/uL Eosinophils # 0 L (0.04-0.35) X 10*3/uL NRBC/100 WBC Diff 0.2 H (0.0-0.0) /100 WBCS Carbon Dioxide 18.5 L (22-30) mmol/L BUN 57.1 H (9-20) mg/dL BUN/Creatinine Ratio 47.58 H (12.00-20.00) Ratio Glucose 160 H (70-110) mg/dL POC Glucose (mg/dL) 137 H (70-110) mg/dL Uric Acid (3.5-8.5) mg/dL Lactate Dehydrogenase 339 H (313-618) U/L Total Protein 5.1 L (6.3-8.2) g/dL Albumin 3.6 L (3.8-4.9) g/dL Globulin 1.5 L (1.6-3.3) g/dL 04/04/22 Range/Units 06:12 WBC (4.50-10.00) X 10*3/uL RBC (4.40-5.60) X 10*6/uL Hct (39.6-50.0) % MCV (80.0-97.0) fL MCH (27.0-32.0) pg MCHC (32.0-37.0) g/dL RDW (11.5-14.5) % MPV (9.5-12.2) fL Absolute Nucleated RBC (0.00-0.00) X 10*3/uL Immature Gran # (0.00-0.04) X 10*3/uL Neutrophils # (1.80-7.70) X 10*3/uL Eosinophils # (0.04-0.35) X 10*3/uL NRBC/100 WBC Diff (0.0-0.0) /100 WBCS Carbon Dioxide (22-30) mmol/L BUN (9-20) mg/dL BUN/Creatinine Ratio (12.00-20.00) Ratio Glucose (70-110) mg/dL POC Glucose (mg/dL) 166 H (70-110) mg/dL Uric Acid (3.5-8.5) mg/dL Lactate Dehydrogenase (313-618) U/L Total Protein (6.3-8.2) g/dL Albumin (3.8-4.9) g/dL Globulin (1.6-3.3) g/dL Assessment and Plan Plan: Assessment: 1. Acute kidney injury mostly prerenal secondary to nonsteroidals, hypovolemia and hypercalcemia. Creatinine peaked at 1.9 this admission - stable at 1.2 today. UA benign. No hydronephrosis noted on CAT scan. 2. Chronic kidney disease stage IIIA with baseline creatinine in the range of 1.2-1.3 secondary to nephrosclerosis. 3. Left lower quadrant abdominal pain. Left kidney mass versus hematoma noted on CAT scan. Oncology and urology following. MRI showed large posterior left p erinephric mass related to lymphoma. Retroperitoneal adenopathy noted. Biopsy positive for high-grade lymphoma. 4. Hypercalcemia secondary to hypovolemia and lymphoma. Calcium level trending down. Not on any vitamin D or calcium supplementation. Improved. PTH low at 2.3. Vitamin D level 43.6. BEATRICE 20. Serum immunofixation showed IgG Paraprotein. 1,25D3 high at 98. Oncology following. 5. History of CLL. Oncology following. 6. Metabolic acidosis secondary to acute kidney injury and IV fluids. 7. Hypomagnesemia from poor intake and diuresis. Replaced. Better. 8. Volume overload. s/p Lasix. Improved. Plan: Patient has hypercalcemia with an elevated calcitriol level which is due to enhanced calcitriol production from the underlying malignancy - on steroids. If no improvement in calcium level, will repeat zoledronic acid. If refractory to zoledronic acid, will consider denosumab. Encouraged oral intake. Receiving TPN. Avoid nephrotoxins. Continue to monitor renal function and urine output. Started on chemotherapy per oncology 04/03/2022. Add oral bicarbonate.
--- NOTE | 2022-04-04 10:47 | P.PN ---
Subjective Progress Note Date: 04/04/22 Principal diagnosis: Concern of Renal Mass Agitated this am, although alert and easily reoriented. He is looking overall improved after cycle one of chemo Objective - Vital Signs Vital signs: Vital Signs Temp 97.3 F L 04/04/22 07:57 Pulse 99 04/04/22 07:57 Resp 18 04/04/22 07:57 BP 125/67 04/04/22 07:57 Pulse Ox 90 L 04/04/22 07:57 FiO2 50 03/26/22 08:39 Intake & Output 04/03/22 04/04/22 04/04/22 18:59 06:59 18:59 Intake Total 2162 1039 Output Total 850 600 Balance 1312 439 Weight 55 kg Intake: Intake, IV Titration 2162 1039 Amount Cyclophosphamide 1,000 mg 250 Cyclophosphamide 200 mg In Sodium Chloride 0.9% 250 ml @ 512 mls/hr IV ONCE ONE Rx#:[id number] DOXOrubicin HCL 50 mg 40 DOXOrubicin HCL 30 mg In Empty Syringe 1 syr @ 240 mls/hr IV ONCE ONE Rx#: [id number] Mvi, Adult No.4 with Vit 744 1039 K 10 ml Trace (Conc-1Ml/ Dose) 1 ml Sodium Acetate 30 meq Potassium Chloride 10 meq Magnesium Sulfate gm 1 gm Sodium Phosphate 18 mmol In Amino Acids 5 %/Dextrose 20 % 1,000 ml @ 62 mls/hr IV .BY DURATION [facility] Rx#: [id number] Ondansetron 16 mg In 50 Sodium Chloride 0.9% 50 ml @ 232 mls/hr IVPB ONCE ONE Rx#:[id number] Sodium Acetate 30 meq 1028 Potassium Chloride 10 meq Magnesium Sulfate gm 1 gm Sodium Phosphate 18 mmol In Amino Acids 5 %/ Dextrose 20 % 1,000 ml @ 62 mls/hr IV .BY DURATION [facility] Rx#:[id number] vinCRIStine SULFATE 2 mg 50 In Sodium Chloride 0.9% 50 ml @ 312 mls/hr IV ONCE ONE Rx#:[id number] Output: Urine 850 600 Other: Voiding Method Indwelling Catheter Indwelling Catheter - Exam Gen.: NAD HEENT: Mucosa moist, no conjunctival pallor. Lymph:Bilateral small cervical lymphadenopathy Lungs: No respiratory distress. Heart: Tachy Abdomen: Soft, nontender. Awake, intermittent confusion ALert - Labs CBC & Chem 7: 04/04/22 04:58 04/04/22 04:58 Labs: Abnormal Lab Results - Last 24 Hours (Table) 04/03/22 04/03/22 04/03/22 Range/Units 06:22 06:22 17:04 WBC 15.39 H (4.50-10.00) X 10*3/uL RBC 7.31 H (4.40-5.60) X 10*6/uL Hct 57.0 H (39.6-50.0) % MCV 78.0 L (80.0-97.0) fL MCH 22.0 L (27.0-32.0) pg MCHC 28.2 L (32.0-37.0) g/dL RDW 21.9 H (11.5-14.5) % MPV 9.2 L (9.5-12.2) fL Absolute Nucleated RBC 0.04 H (0.00-0.00) X 10*3/uL Immature Gran # (0.00-0.04) X 10*3/uL Neutrophils # (1.80-7.70) X 10*3/uL Eosinophils # (0.04-0.35) X 10*3/uL NRBC/100 WBC Diff 0.3 H (0.0-0.0) /100 WBCS Carbon Dioxide 20 L (22-30) mmol/L BUN 47 H (9-20) mg/dL BUN/Creatinine Ratio (12.00-20.00) Ratio Glucose (70-110) mg/dL POC Glucose (mg/dL) 157 H (70-110) mg/dL Uric Acid 11.0 H (3.5-8.5) mg/dL Lactate Dehydrogenase 877 H (313-618) U/L Total Protein 6.0 L (6.3-8.2) g/dL Albumin (3.8-4.9) g/dL Globulin (1.6-3.3) g/dL 04/03/22 04/04/22 04/04/22 Range/Units 23:43 04:58 04:58 WBC 13.13 H (4.50-10.00) X 10*3/uL RBC 6.39 H (4.40-5.60) X 10*6/uL Hct 50.4 H (39.6-50.0) % MCV 78.9 L (80.0-97.0) fL MCH 22.2 L (27.0-32.0) pg MCHC 28.2 L (32.0-37.0) g/dL RDW 21.1 H (11.5-14.5) % MPV (9.5-12.2) fL Absolute Nucleated RBC 0.02 H (0.00-0.00) X 10*3/uL Immature Gran # 0.20 H (0.00-0.04) X 10*3/uL Neutrophils # 8.38 H (1.80-7.70) X 10*3/uL Eosinophils # 0 L (0.04-0.35) X 10*3/uL NRBC/100 WBC Diff 0.2 H (0.0-0.0) /100 WBCS Carbon Dioxide 18.5 L (22-30) mmol/L BUN 57.1 H (9-20) mg/dL BUN/Creatinine Ratio 47.58 H (12.00-20.00) Ratio Glucose 160 H (70-110) mg/dL POC Glucose (mg/dL) 137 H (70-110) mg/dL Uric Acid (3.5-8.5) mg/dL Lactate Dehydrogenase 339 H (313-618) U/L Total Protein 5.1 L (6.3-8.2) g/dL Albumin 3.6 L (3.8-4.9) g/dL Globulin 1.5 L (1.6-3.3) g/dL 04/04/22 Range/Units 06:12 WBC (4.50-10.00) X 10*3/uL RBC (4.40-5.60) X 10*6/uL Hct (39.6-50.0) % MCV (80.0-97.0) fL MCH (27.0-32.0) pg MCHC (32.0-37.0) g/dL RDW (11.5-14.5) % MPV (9.5-12.2) fL Absolute Nucleated RBC (0.00-0.00) X 10*3/uL Immature Gran # (0.00-0.04) X 10*3/uL Neutrophils # (1.80-7.70) X 10*3/uL Eosinophils # (0.04-0.35) X 10*3/uL NRBC/100 WBC Diff (0.0-0.0) /100 WBCS Carbon Dioxide (22-30) mmol/L BUN (9-20) mg/dL BUN/Creatinine Ratio (12.00-20.00) Ratio Glucose (70-110) mg/dL POC Glucose (mg/dL) 166 H (70-110) mg/dL Uric Acid (3.5-8.5) mg/dL Lactate Dehydrogenase (313-618) U/L Total Protein (6.3-8.2) g/dL Albumin (3.8-4.9) g/dL Globulin (1.6-3.3) g/dL Assessment and Plan Plan: CT scan - abdomen: report reviewed US - abdomen: report reviewed Assessment and Plan (1) Left kidney mass Narrative/Plan: Biopsy is consistent with high grade lymphoma Status Post Day One CHOP chemo Current Visit: Yes Status: Acute Code(s): N28.89 - OTHER SPECIFIED DISORDERS OF KIDNEY AND URETER SNOMED Code(s): 576666733 (2) Neoplasm related pain Narrative/Plan: Continue regimen and Bowel protocol Current Visit: Yes Status: Acute Code(s): G89.3 - NEOPLASM RELATED PAIN (ACUTE) (CHRONIC) SNOMED Code(s): 71857921811123
--- NOTE | 2022-04-04 11:05 | P.PN ---
Subjective Progress Note Date: 04/04/22 Hospital course: Patient is a very pleasant 61-year-old male with a past medical history of CLL on Calquence, chronic kidney stage III, and COPD. He presented to the emergency department on 03/18/22 with a chief complaint of left flank pain. Patient reported this pain began approximately a few weeks ago and significantly worsened over the past few days. He reported the pain still left flank and was accompanied by nausea. He underwent full evaluation in the emergency department. He was found to have significant leukocytosis with WBC count of 18.9 and an acute kidney injury with BUN 26, creatinine 1.72, and GFR 41. Urinalysis was negative for blood, protein, or infection. Covid PCR negative. CT abdomen and pelvis revealed a left perinephritic/retroperitoneal soft tissue suspicious for mass with overall worsening of previously known lymphadenopathy throughout the abdomen and ascending into the mediastinum with persistent splenomegaly consistent with his prior history of lymphoma along with increase and bilateral pleural effusions with left greater than right. Patient was admitted under our services with consultation to oncology, vascular surgery, nephrology, and urology. Abdominal ultrasound was completed revealing a left perinephritic complex vascular mass, recommending further evaluation with MRI. MRI with and without contrast revealed large posterior perinephrotic mass with massive retroperitoneal adenopathy and massive splenomegaly. Oncology consulted interventional radiology to perform biopsy of renal mass. INR remains elevated, unable to complete biopsy until INR has improved. Patient given vitamin K. On 03/23/22, patient was found to be hypoxic and had increasing oxygen needs. Repeat x-ray revealed increasing left lower lobe effusion. Pulmonology re-consulted at this time for evaluation. On 03/25/22 ultrasound of chest was completed which revealed an 11.8 cm pleural effusion pocket. Patient will likely need to u ndergo thoracentesis, however due to persistently elevated INR it was deemed unsafe to perform at this time. Patient currently on palliative care and underwent renal mass biopsy on 03/27/22. He was started on high-dose steroids, pending biopsy results. 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 Patient received fifth dose of steroids and CHOP chemotherapy treatment 04/03/22. Physical exam: Pt seen and fully evaluated at bedside this morning, patient awake and more alert and oriented this morning. He continues to be agitated requiring sitter at bedside but definitely responding more appropriately and is alert to person, place, and situation. Patient's cousin also at bedside and updated on plan of care. We discussed placement once patient is stable and plan is for patient to be evaluated for inpatient rehabilitation facility. We will continue to monitor closely for continued improvement. Patient received dose of Elitek overnight for elevated uric acid levels. Repeat labs this morning revealed normal uric acid level of 8.7. LDH improving from 877 down to 339. O2 decreased from 9 L down to 6 L and patient maintaining oxygen saturations 90-92% with no signs of respiratory distress. Vital signs otherwise stable. Consult being placed to Dr. Powell for evaluation for inpatient rehab as patient is stable for discharge. Vital signs reviewed and stable. General: Nontoxic, no distress and appears stated age. Thin, malnourished. Derm: Skin warm and dry, normal coloration for ethnicity. Head: Atraumatic, normocephalic and symmetric. Eyes: EOMs intact, no lid lag, and anicteric sclera Mouth: no lip lesions, mucus membranes moist Cardiovascular: regular rate and rhythm with normal S1S2, no murmur, positive posterior tibial pulses bilaterally, and cap refill < 2 seconds. Lungs: Respirations even, regular, and unlabored on 6 L O2 via nasal cannula. Lungs diminished with absent breath sounds in left mid and lower lung. No rhonchi, rales, wheezes or crackles present, and no accessory muscle usage. Abdominal: soft, Bowel sounds 4 quadrants. Ext: No gross muscle atrophy, no edema, no contractures. Patient moving all extremities without any difficulties. Patient sitting up in bed and following commands without any noted problems at this time. Neuro/Psych: Alert and oriented, GCS 14. No neurological deficits noted Assessment and Plan of Care: CLL Left perinephric complex mass status post biopsy on 03/27/22 Massive splenomegaly -MRI with and without contrast revealed large posterior perinephrotic mass with massive retroperitoneal adenopathy and massive splenomegaly. 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 Acute encephalopathy, improving -Likely multifactorial secondary to delirium resulting from medication administration as patient on high-dose steroids as well as narcotics -Neuro checks -Fall precautions -Sitter to remain at bedside to maintain patient's safety. -Safe and supportive care with redirection/reorientation as needed. Leukocytosis -Believed to be reactive secondary to high-dose steroid administration. -We will continue to monitor closely for any signs of infection and with repeat a.m. labs. KEERTHI on CKD, renal function stable Hypercalcemia secondary to underlying lymphoma, improving -Nephrology following, appreciate recommendations -Improved after IV fluid hydration and administration of zoledronic acid. -Patient has Mays catheter in place secondary to urinary retention. Acute respiratory failure with hypoxia secondary to large left pleural effusion -Ultrasound chest completed revealing an 11.8 cm pleural effusion pocket -Pulmonology following, recommending patient undergo thoracentesis, however due to persistently elevated INR it is deemed unsafe to perform at this time. -Continue with oxygen supplementation to maintain SpO2 equal to or greater than 90%. Severe protein malnourishment -Continue TPN Chronic coagulopathy Chronic anemia of chronic disease Lupus anticogulant -Secondary to CLL, hematology/oncology following. Hypomagnesemia, replaced COPD without acute exacerbation -Continue Symbicort 2 puffs twice daily along with PRN nebulizer treatments for shortness of breath and/or wheezing. CODE STATUS: Full code DVT prophylaxis: SCDs Discussed with: Patient, patient's cousin RN and hematology Anticipated discharge date: Clinical course to determine Anticipated discharge place: Clinical course to determine A total of 41 minutes was spent on the care of this complex patient more than 50% of the time was spent in counseling and care coordination. Eliseo Sanon NP rendered care for this patient independently, reviewed the findings and plan as documented in the note above. I did not physically speak with or examine the patient on this date. Objective - Vital Signs Vital signs: Vital Signs Temp 97.3 F L 04/04/22 07:57 Pulse 99 04/04/22 07:57 Resp 18 04/04/22 07:57 BP 125/67 04/04/22 07:57 Pulse Ox 90 L 04/04/22 07:57 FiO2 50 03/26/22 08:39 Intake & Output 04/03/22 04/04/22 04/04/22 18:59 06:59 18:59 Intake Total 2162 1039 Output Total 850 600 Balance 1312 439 Weight 55 kg 55 kg Intake: Intake, IV Titration 2162 1039 Amount Cyclophosphamide 1,000 mg 250 Cyclophosphamide 200 mg In Sodium Chloride 0.9% 250 ml @ 512 mls/hr IV ONCE ONE Rx#:[id number] DOXOrubicin HCL 50 mg 40 DOXOrubicin HCL 30 mg In Empty Syringe 1 syr @ 240 mls/hr IV ONCE ONE Rx#: [id number] Mvi, Adult No.4 with Vit 744 1039 K 10 ml Trace (Conc-1Ml/ Dose) 1 ml Sodium Acetate 30 meq Potassium Chloride 10 meq Magnesium Sulfate gm 1 gm Sodium Phosphate 18 mmol In Amino Acids 5 %/Dextrose 20 % 1,000 ml @ 62 mls/hr IV .BY DURATION [facility] Rx#: [id number] Ondansetron 16 mg In 50 Sodium Chloride 0.9% 50 ml @ 232 mls/hr IVPB ONCE ONE Rx#:[id number] Sodium Acetate 30 meq 1028 Potassium Chloride 10 meq Magnesium Sulfate gm 1 gm Sodium Phosphate 18 mmol In Amino Acids 5 %/ Dextrose 20 % 1,000 ml @ 62 mls/hr IV .BY DURATION [facility] Rx#:[id number] vinCRIStine SULFATE 2 mg 50 In Sodium Chloride 0.9% 50 ml @ 312 mls/hr IV ONCE ONE Rx#:[id number] Output: Urine 850 600 Other: Voiding Method Indwelling Catheter Indwelling Catheter - Labs CBC & Chem 7: 04/04/22 04:58 04/04/22 04:58 Labs: Abnormal Lab Results - Last 24 Hours (Table) 04/03/22 04/03/22 04/03/22 Range/Units 06:22 17:04 23:43 WBC (4.50-10.00) X 10*3/uL RBC (4.40-5.60) X 10*6/uL Hct (39.6-50.0) % MCV (80.0-97.0) fL MCH (27.0-32.0) pg MCHC (32.0-37.0) g/dL RDW (11.5-14.5) % Absolute Nucleated RBC (0.00-0.00) X 10*3/uL Immature Gran # (0.00-0.04) X 10*3/uL Neutrophils # (1.80-7.70) X 10*3/uL Eosinophils # (0.04-0.35) X 10*3/uL NRBC/100 WBC Diff (0.0-0.0) /100 WBCS Carbon Dioxide (20.0-27.5) mmol/L BUN (9.0-27.0) mg/dL BUN/Creatinine Ratio (12.00-20.00) Ratio Glucose (70-110) mg/dL POC Glucose (mg/dL) 157 H 137 H (70-110) mg/dL Uric Acid 11.0 H (3.5-8.5) mg/dL Lactate Dehydrogenase 877 H (313-618) U/L Total Protein (6.2-8.2) g/dL Albumin (3.8-4.9) g/dL Globulin (1.6-3.3) g/dL 04/04/22 04/04/22 04/04/22 Range/Units 04:58 04:58 06:12 WBC 13.13 H (4.50-10.00) X 10*3/uL RBC 6.39 H (4.40-5.60) X 10*6/uL Hct 50.4 H (39.6-50.0) % MCV 78.9 L (80.0-97.0) fL MCH 22.2 L (27.0-32.0) pg MCHC 28.2 L (32.0-37.0) g/dL RDW 21.1 H (11.5-14.5) % Absolute Nucleated RBC 0.02 H (0.00-0.00) X 10*3/uL Immature Gran # 0.20 H (0.00-0.04) X 10*3/uL Neutrophils # 8.38 H (1.80-7.70) X 10*3/uL Eosinophils # 0 L (0.04-0.35) X 10*3/uL NRBC/100 WBC Diff 0.2 H (0.0-0.0) /100 WBCS Carbon Dioxide 18.5 L (20.0-27.5) mmol/L BUN 57.1 H (9.0-27.0) mg/dL BUN/Creatinine Ratio 47.58 H (12.00-20.00) Ratio Glucose 160 H (70-110) mg/dL POC Glucose (mg/dL) 166 H (70-110) mg/dL Uric Acid (3.5-8.5) mg/dL Lactate Dehydrogenase 339 H (313-618) U/L Total Protein 5.1 L (6.2-8.2) g/dL Albumin 3.6 L (3.8-4.9) g/dL Globulin 1.5 L (1.6-3.3) g/dL
[2022-04-04 11:59] LABS: Glucose,Whole Blood 185 mg/dL (70-110)
[2022-04-04] MEDS ORDERED: PEGFILGRASTIM-CBQV 6 MG/0.6 ML SYRINGE SQ ONE (12:00)
[2022-04-04] MEDS: DEXAMETHASONE SOD PHOS (MDV) 100 MG/10 ML VIAL IVP SCH ×2 (12:24→12:27)
[2022-04-04] MEDS: SODIUM BICARBONATE TAB 650 MG TAB PO SCH ×2 (12:24→20:41)
--- NOTE | 2022-04-04 16:17 | P.CONS ---
History of Present Illness - Chief Complaint Medical debility - History of Present Illness I had the opportunity to see patient for inpatient rehab consultation with regard to medical debility. [facility], diarrhea, shortness of breath, to Dr. Trivedi. Patient noted Dr. Chen for left renal mass, CLL. Seen by Dr. Mays. Seen by Dr. Vigil for acut e on chronic kidney disease. Seen by surgery, Dr. Adair. Seen by palliative care for pain management. I'm diagnostic tests chest x-ray cardiomegaly, congestion and effusions. Cardiac ultrasound for effusions and thoracentesis. Abdominal MRI perinephric mass consistent with lymphoma and effusions. Computed tomography scan abdomen pelvis demonstrates left perinephric mass, increase lifting adenopathy and effusions. Has started therapies. PT reports moderate assistance for bed mobility and minimal assistance to stand transfer. Tolerates 5 minute activity. OT reports supervision for feeding, minimal assistance upper dressing and grooming, maximal assistance lower dressing, moderate assistance for bathing. Minimal assistance functional debility and transfer. Previous functional history as listed from patient: Nelson he was 89, actually 61-year-old right-handed white male who is single lives in a first-floor apartment alone. Works full-time. Patient previously independent with own cooking, laundry, driving, standing shower and gait without device. PCP Dr. Masters. Has a history smoking does not drink. Patient was seen with a niece and sister and sitter. Review of Systems Review of systems: ENT: Denies sneezes or discharge. Eyes: Denies discharge or photophobia. Cardiac: Denies chest pain or palpitation. Pulmonary: Denies cough or shortness of breath. Gastrointestinal: Denies nausea, emesis, constipation, diarrhea. Genitourinary: Denies discharge or frequency. Musculoskeletal: Denies muscle or bone aches. Neurologic: Some confusion at least mild generalized weakness. Endocrine: Denies shakes or sweats. Oncology: Denies cancers. Dermatologic: Denies rash, itching, pruritus. ALLERGY/immunology: Denies sneezes, rashes. Past Medical History Past Medical History: Cancer, COPD Additional Past Medical History / Comment(s): Chronic lymphocytic leukemia, emphysema, plueral effusion 09/23/2020, covid 10/2020, lupus anticoagulant History of Any Multi-Drug Resistant Organisms: None Reported Past Surgical History: Appendectomy, Orthopedic Surgery Additional Past Surgical History / Comment(s): rt knee Past Anesthesia/Blood Transfusion Reactions: No Reported Reaction Past Psychological History: Anxiety, Depression Smoking Status: Former smoker Past Alcohol Use History: None Reported Past Drug Use History: None Reported - Past Family History Family Family Medical History: Hypertension Medications and Allergies Home Medications Medication Instructions Recorded Confirmed Type Albuterol Sulfate [Proair Hfa] 2 puff INHALATION RT-Q6H PRN 09/23/20 03/18/22 History Cyclobenzaprine [Flexeril] 10 mg PO HS PRN 09/23/20 03/18/22 History Fluticasone Propion/Salmeterol 1 puff INHALATION RT-BID 09/23/20 03/18/22 History [Advair 250-50 Diskus] Omeprazole 20 mg PO BID 09/23/20 03/18/22 History PARoxetine [Paxil] 20 mg PO HS 09/23/20 03/18/22 History Tiotropium Fifield [Spiriva] 1 cap INHALATION RT-DAILY 09/23/20 03/18/22 History Aspirin 325 mg PO DAILY #30 tab 09/27/20 03/18/22 Rx Ascorbic Acid [Vitamin C] 1,000 mg PO DAILY 04/24/21 03/18/22 History Albuterol Nebulized [Ventolin 2.5 mg INHALATION RT-QID PRN 07/18/21 03/18/22 History Nebulized] Ferrous Sulfate [Iron (65 MG 325 mg PO DAILY 07/18/21 03/18/22 History Elemental)] Gabapentin [Neurontin] 100 mg PO BID 07/18/21 03/18/22 History [place]-3 Fatty Acids/Fish Oil [Fish 1 cap PO DAILY 07/21/21 03/18/22 History Oil 1,000 mg Softgel] Vitamin B Complex 1 cap PO DAILY 07/21/21 03/18/22 History Acalabrutinib [Calquence] 100 mg PO BID 03/18/22 03/18/22 History Furosemide [Lasix] 20 mg PO DAILY 03/18/22 03/18/22 History clonazePAM [KlonoPIN] 0.5 mg PO BID PRN 03/18/22 03/18/22 History ondansetron HCL [Zofran] 8 mg PO TID PRN 03/18/22 03/18/22 History Allergies Allergy/AdvReac Type Severity Reaction Status Date / Time Penicillins Allergy Unknown Verified 03/18/22 12:06 Childhood Physical Exam Vitals: Vital Signs Temp Pulse Pulse Resp BP BP Pulse Ox 04/04/22 15:16 97 16 04/04/22 15:04 94 16 92 L 04/04/22 12:00 97.3 F L 87 18 112/70 93 L 04/04/22 07:57 97.3 F L 99 18 125/67 90 L 04/04/22 07:30 101 H 04/04/22 07:20 101 H 91 L 04/04/22 04:00 97.7 F 97 16 119/72 90 L 04/04/22 00:13 97.6 F 103 H 16 113/41 92 L 04/03/22 21:29 95 04/03/22 21:19 93 04/03/22 20:15 16 04/03/22 20:00 97.8 F 100 12 113/67 92 L 04/03/22 16:20 96 Intake and Output 04/04/22 04/04/22 04/04/22 06:59 14:59 22:59 Intake Total 1039 Output Total 600 Balance 439 Intake: Intake, IV Titration 1039 Amount Mvi, Adult No.4 with Vit 1039 K 10 ml Trace (Conc-1Ml/ Dose) 1 ml Sodium Acetate 30 meq Potassium Chloride 10 meq Magnesium Sulfate gm 1 gm Sodium Phosphate 18 mmol In Amino Acids 5 %/Dextrose 20 % 1,000 ml @ 62 mls/hr IV .BY [facility] Rx#: [id number] Output: Urine 600 Other: Voiding Method Indwelling Catheter Weight 55 kg Skin: Good color, texture, turgor. General: Thin build and comfortable appearance. Head: Normocephalic, atraumatic. Eyes: Symmetric. Pupils equal round. Ears: Symmetric. Hearing within normal limits. Mouth: Clear. Neck: Supple. Carotid without bruit. Cardiac: Regular rate and rhythm. Lungs: Clear anteriorly and posteriorly. Abdomen: Soft active nontender. Extremities: Normal tone. Neurological: Mental status: Alert, cooperative, pleasant but pleasantly confused. Cranial nerves: Symmetric facial tone and trapezius. Motor: Active movement all 4 limbs but at best antigravity. Sensation: Intact throughout. DTRs: Symmetric and equal throughout. Mobility: Requires physical assist for bed mobility. Results CBC & Chem 7: 04/04/22 04:58 04/04/22 04:58 Labs: Abnormal Lab Results - Last 24 Hours (Table) 04/03/22 04/03/22 04/04/22 Range/Units 17:04 23:43 04:58 WBC (4.50-10.00) X 10*3/uL RBC (4.40-5.60) X 10*6/uL Hct (39.6-50.0) % MCV (80.0-97.0) fL MCH (27.0-32.0) pg MCHC (32.0-37.0) g/dL RDW (11.5-14.5) % Absolute Nucleated RBC (0.00-0.00) X 10*3/uL Immature Gran # (0.00-0.04) X 10*3/uL Neutrophils # (1.80-7.70) X 10*3/uL Eosinophils # (0.04-0.35) X 10*3/uL NRBC/100 WBC Diff (0.0-0.0) /100 WBCS Carbon Dioxide 18.5 L (20.0-27.5) mmol/L BUN 57.1 H (9.0-27.0) mg/dL BUN/Creatinine Ratio 47.58 H (12.00-20.00) Ratio Glucose 160 H (70-110) mg/dL POC Glucose (mg/dL) 157 H 137 H (70-110) mg/dL Lactate Dehydrogenase 339 H (120-246) U/L Total Protein 5.1 L (6.2-8.2) g/dL Albumin 3.6 L (3.8-4.9) g/dL Globulin 1.5 L (1.6-3.3) g/dL 04/04/22 04/04/22 04/04/22 Range/Units 04:58 06:12 11:56 WBC 13.13 H (4.50-10.00) X 10*3/uL RBC 6.39 H (4.40-5.60) X 10*6/uL Hct 50.4 H (39.6-50.0) % MCV 78.9 L (80.0-97.0) fL MCH 22.2 L (27.0-32.0) pg MCHC 28.2 L (32.0-37.0) g/dL RDW 21.1 H (11.5-14.5) % Absolute Nucleated RBC 0.02 H (0.00-0.00) X 10*3/uL Immature Gran # 0.20 H (0.00-0.04) X 10*3/uL Neutrophils # 8.38 H (1.80-7.70) X 10*3/uL Eosinophils # 0 L (0.04-0.35) X 10*3/uL NRBC/100 WBC Diff 0.2 H (0.0-0.0) /100 WBCS Carbon Dioxide (20.0-27.5) mmol/L BUN (9.0-27.0) mg/dL BUN/Creatinine Ratio (12.00-20.00) Ratio Glucose (70-110) mg/dL POC Glucose (mg/dL) 166 H 185 H (70-110) mg/dL Lactate Dehydrogenase (120-246) U/L Total Protein (6.2-8.2) g/dL Albumin (3.8-4.9) g/dL Globulin (1.6-3.3) g/dL Assessment and Plan (1) Chronic lymphocytic leukemia Current Visit: Yes Status: Acute Code(s): C91.10 - CHRONIC LYMPHOCYTIC LEUK OF B-CELL TYPE NOT ACHIEVE REMIS SNOMED Code(s): 42976536 (2) DLBCL (diffuse large B cell lymphoma) Current Visit: Yes Status: Acute Priority: High Code(s): C83.30 - DIFFUSE LARGE B-CELL LYMPHOMA, UNSPECIFIED SITE SNOMED Code(s): 889789000 (3) Left kidney mass Current Visit: Yes Status: Acute Code(s): N28.89 - OTHER SPECIFIED DISORDERS OF KIDNEY AND URETER SNOMED Code(s): 989310110 Plan: Comments and plan: At this time safety concerns are noted. Patient however significant endurance issues and do not believe could tolerate a full inpatient rehab program, 3 hours per day. Also discussed case with family members present there does not appear to be or for return to home other than patient returning to home alone. At this time should begin to consider alternative discharge plan, i.e. subacute rehab.
[2022-04-04] MEDS: PARoxetine 20 MG TAB PO SCH (20:41)
[2022-04-05 00:19] LABS: Glucose,Whole Blood 210 mg/dL (70-110)
[2022-04-05] MEDS: DRY MOUTH SPRAY 44.3 SPRAY/44.3 ML SPRAY MUCOUS MEM SCH ×6 (04:03→23:53)
[2022-04-05 06:09] LABS: Glucose,Whole Blood 180 mg/dL (70-110)
[2022-04-05] MEDS: 1: MVI, ADULT NO.4 WITH VIT K 10 ML, TRACE (CONC-1ML/DOSE) 1 ML, SODIUM ACETATE 30 MEQ, IV SCH ×7 (06:18)
[2022-04-05] MEDS: SODIUM BICARBONATE TAB 650 MG TAB PO SCH ×2 (07:31→20:20)
[2022-04-05] MEDS: predniSONE 50 MG TAB PO SCH (07:31)
[2022-04-05] MEDS: GABAPENTIN 100 MG CAP PO SCH ×2 (07:31→20:20)
[2022-04-05] MEDS: SENNOSIDES-DOCUSATE SODIUM 1 EACH TAB PO SCH ×2 (07:32→20:20)
[2022-04-05] MEDS: polyethylene glycoL 3350 17 GM POWD.PACK PO SCH (07:32)
[2022-04-05] MEDS: QUEtiapine 50 MG TAB PO SCH ×2 (07:32→20:20)
[2022-04-05] MEDS: MAG HYDROX/AL HYDROX/SIMETH 30 ML, LIDOCAINE VISCOUS 2% 30 ML, diphenhydrAMINE ELIXIR 7... PO SCH ×15 (07:32→21:11)
[2022-04-05] MEDS: HYDROcodone/APAP 7.5-325MG 1 EACH TAB PO SCH ×3 (07:32→23:52)
[2022-04-05] MEDS: PANTOPRAZOLE 40 MG/10 ML VIAL IVP SCH ×2 (07:33→20:20)
[2022-04-05] MEDS: MEGESTROL 400 MG/10 ML CUP PO SCH (07:33)
[2022-04-05] MEDS: DEXAMETHASONE SOD PHOS (MDV) 100 MG/10 ML VIAL IVP SCH (07:33)
[2022-04-05] MEDS: bisacodyL 5 MG TABLET.DR PO SCH (07:33)
[2022-04-05] MEDS: SALT AND SODA MOUTHWASH 1,000 ML PO SCH ×3 (07:34→17:25)
[2022-04-05] MEDS: IPRATROPIUM 0.5 MG/2.5 ML NEBU INHALATION SCH ×4 (08:07→19:16)
[2022-04-05] MEDS: SYMBICORT 80-4.5 MCG INHALER INHALATION SCH ×2 (08:07→19:16)
[2022-04-05 08:27] LABS: Ionized Calcium 5.3 mg/dL (4.5-5.3)
[2022-04-05 08:50] LABS: ALT 12 U/L (4-49); AST 28 U/L (17-59); African American GFR (CKD) >90 (>60 ml/min/1.73 sqM); Albumin 3.1 g/dL (3.5-5.0); Albumin/Globulin Ratio 1.7; Alkaline Phosphatase 56 U/L (38-126); Anion Gap 7 mmol/L; Blood Urea Nitrogen 58 mg/dL (9-20); Calcium 8.7 mg/dL (8.4-10.2); Carbon Dioxide 23 mmol/L (22-30); Chloride 111 mmol/L (98-107); Globulin 1.8 g/dL; Glucose 159 mg/dL (74-99); Magnesium 2.4 mg/dL (1.6-2.3); Non-African American GFR(CKD) >90 (>60 ml/min/1.73 sqM); Phosphorus 3.5 mg/dL (2.5-4.5); Potassium 3.8 mmol/L (3.5-5.1); Sodium 141 mmol/L (137-145); Total Bilirubin 0.9 mg/dL (0.2-1.3); Total Protein 4.9 g/dL (6.3-8.2)
--- NOTE | 2022-04-05 09:28 | P.PN ---
Subjective Progress Note Date: 04/05/22 Principal diagnosis: Renal mass The patient is a 61-year-old male patient, known history of CLL on [place], chronic kidney stage III, COPD. He presented to the [facility] on 03/18/22 with abdominal pain has been going on for few weeks with progressive worsening over the past fe w days. Patient is nauseous but no vomiting. No hematemesis. No hematuria. Patient was taken [id number] naproxen and ibuprofen for his pain control for the past few days. He stated that he was supposed to follow-up with Dr. Faulkner from oncology last month but he canceled his appointment. Patient has a chronic exertional dyspnea, but it seems to be worsening. He is known to have COPD maintained on 3L home O2, and a combination of Advair and Spiriva on outpatient basis. He also carries a diagnosis of CLL that was followed up by Dr. Faulkner. He is known to have extensive lymphadenopathy related to his CLL. Based on the most recent oncology evaluation, there has been progression his CLL based on progression his lymphadenopathy. In the [facility], the patient was found to have a coagulation profile was abnormal, and the patient has been quite neuropathic even prior admissions. An abdominal CT of the abdomen and pelvis was done and it showed a left perinephric/retroperitoneal soft tissue density which is either a mass versus hematoma and this was not present on previous evaluation or there has been probably a subtle finding in 2020. There is also overall worsening in the lymphadenopathy about the abdomen and ascending into the mediastinum with splenomegaly. The patient also had small bilateral pleural effusions L>R. Abdominal ultrasound was then completed revealing a left perinephritic complex vascular mass, recommending further evaluation with MRI. MRI with and without contrast revealed large posterior perinephrotic mass with massive retroperitoneal adenopathy and massive splenomegaly. Oncology consulted interventional radiology to perform biopsy of renal mass. I NR remains elevated, unable to complete biopsy until INR has improved. Patient given vitamin K. On 03/23/22, patient was found to be hypoxic and had increasing oxygen needs. Repeat x-ray revealed increasing left lower lobe effusion. Pulmonology re-consulted at this time for evaluation. On 03/25/22 ultrasound of chest was completed which revealed an 11.8 cm pleural effusion pocket. Patient will likely need to undergo thoracentesis. However, INR still remains elevated at this time despite receiving multiple doses of Vitamin K. Oncology and interventional radiology continue to follow. The patient will also undergo biopsy of renal mass. Both the thoracentesis and the renal biopsy is on hold until the patient's INR is less than 1.5. 03/26 The patient was lethargic during examination. He was confused and unable to follow a conversation fully. He did state he still has lower left quadrant pain, but it is mild and much better today. He received Dilaudid prior to examination. Spoke with the patient's nephew, Dejon, via telephone. He states he is the patient's next of kin and would like to be updated regularly. He was told the patient's procedures are still on hold because his blood is too thin despite the vitamin K that was given. Awaiting oncology's recommendations. Dejon has never had conversations with the patient regarding his goals of care or wishes. Code status discussed at length. Dejon would like to wait for the renal biopsy and the thoracentesis before deciding on a plan of care moving forward. He would like the patient to remain a full code. 03/27 The patient is lying in bed and appears uncomfortable. He c/o LLQ pain. No family present at time of examination. Patient still slightly confused and has garbled speech.The patient's Fentanyl patch was discontinued yesterday. Per RN, the patient was barely responsive and Narcan had to be administered. Low d ose York ATC was added to pain regimen in attempt to keep pain more controlled. Dilaudid IV still available prn for severe pain. Discussed pain medication plan with RN, requested she call with any issues. Patient will likely need anther adjustment in pain medication. The patient denies any nausea. He states he has not been eating much due to a loss of appetite. Wanda added. The patient is currently on 9L NC with slightly labored breathing. SPO2 94%. Awaiting pulmonary to determine if patient will be able to have a thoracentesis today, INR 3.3 today despite receiving vitamin K. 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 Oncology has left message for IR as a biopsy for possible transformation of CLL is needed and per their message Saturday was holding off related to coagulopathy. Returned to patient's bedside to reassess pain. The patient woke up easily. He was a little confused as to where he was and what was going on. He reoriented easily. He stated his pain was "ok". The patient's nephew was present. Education was provided regarding the underlying conditions and poor prognosis. Code status was also addressed again. The patient's nephew is unsure about what to do. He would like to take some time to talk with the patient and his family. The patient is to remain a full code for now. The pulmonary service feels given the patients high INR, a thoracentesis would not be safe at this time. They do not feel like he would tolerate the procedure well. A lymph node biopsy is scheduled to be done later this afternoon. 03/28 The patient is lethargic, but awakens easily. He c/o abdominal pain. York dose increased to 7.5/325mg. The patient is very weak and debilitated. Code status addressed with patient who stated "I don't know". He is confused and unable to follow a conversation fully. His insight and judgment is not intact at this time. Spoke to oncology CLERK SECRETARY via telephone. She is hoping the retroperitoneal mass biopsy results come back tomorrow. She stated if his lymphoma has transformed to [place], it is very treatable and even considered curable. Updated the patient's nephew (DPOA), Dejon, via telephone. He is agreea ble in waiting for biopsy results before considering hospice. However, Dejon did agree to make the patient a DNR. 03/29 The patient was able to tell me he is in the hospital, the correct year, and his last name. He is lethargic, but wakens easily. Patient was receiving IV Dilaudid approximately every 2 hours despite scheduled York. Pain regimen changed to a low dose Fentanyl patch, and York and Dilaudid prn. Awaiting biopsy results for plan of care. Patient's nephew updated. 03/30 Patient resting in bed with eyes closed, no distress noted. Awakens easily to verbal stimulus. Stated he is "alright", and his pain is "ok" right now. Patient industrial safety engineer at bedside. Patient's nephew and sister is at the bedside. They stated they came early in hopes of talking to some of the physic ians, especially oncology. Contacted oncology in attempt of getting a time frame for their patient rounds the family. CLERK SECRETARY stated they are in the clinic this morning and will start rounding approximately 1300. Family awaiting biopsy results to make decisions moving forward, hospice vs. aggressive treatment. They have multiple questions regarding treatment if the patient's lymphoma has in fact transformed to Ruffin's. Plans in place for PICC line placement and TPN. Education provided regarding pain medication regimen. They agree patient appears comfortable. 1500 Family awaiting oncology for update. Patient going to IR for PICC line placement. Spoke to RN and family, asked them to call if any questions or concerns. There is no palliative care coverage over the weekend. Family given personal cell phone number to call if needed. 04/02 Patient confused, restless, and pulling at telemetry cables when examined. Nephew asleep at bedside. The patient states it is 2021 correctly, but when asked what month it is he states it is 2021 again. He stated he was in the [facility], but did not know what building he was in when asked specifically. He does not know who the president is either. Seroquel added BID. He stated his abdomen hurts a lot, but was unable to give a number of severity on a scale of 1-10. Fentanyl patch dose increased. Spoke to RN regarding new pain regimen. Patient industrial safety engineer at bedside. The oncologist had a lengthy discussion with the family on Saturday. They were advised that clinically the patient is more likely to either progressive CLL, or transformation to a more aggressive lymphoproliferative malignancy subtype, with the latter being favored. As most of lymphoproliferative malignancies are very treatable, but, specifically fast responses to treatment, it would be reasonable to continue aggressive supportive care with plan for active treatment, assuming pathology confirms a treatable. Awaiting the final pathology to decide for definitive regimen, it was recommended that the patient be treated with high-dose Decadron. The family was also advised that if the pathology showed a new, hard to treat malignancy, or a very aggressive lymphoid malignancy, requiring very high-dose regimens, it would be very reasonable to consider comfort care. In addition, the patient continued to decline, while on high-dose Decadron, it would also be recommended to consider the same. They had decided to continue current aggressive medical management. 04/03 The patient is restless and confused. He is awake,alert, and oriented to self. He stated he is in [facility]. When asked the month and year he answered 2021 for both questions. No family present at time of examination. He c/o abdominal pain. Nursing staff does not seem to be utilizing the prn York, but is giving the IV Dilaudid. York changed to Q6H ATC. Continue Fentanyl patch. 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 Spoke with patient's nephew, Dejon, via telephone and reviewed the plan to start chemo today and the revised pain regimen. All questions answered. 04/04 Patient resting in bed with industrial safety engineer at bedside. Patient more alert today. He is less restless and does not appear agitated. However, he is still confused and impulsive at times. His speech is clearer and easier to understand. He states he is still having abdominal pain, but it has improved. He is cracking jokes and smiling today. He is scheduled for day 2 of his chemo regimen today. Spoke to Dejon via telephone and updated him. He states he will not be here today to visit, but several other family members will be. Objective - Vital Signs Vital signs: Vital Signs Temp 97.8 F 04/05/22 04:00 Pulse 87 04/05/22 04:00 Resp 16 04/05/22 04:47 BP 139/72 04/05/22 04:00 Pulse Ox 94 L 04/05/22 04:47 FiO2 50 03/26/22 08:39 Intake & Output 04/04/22 04/05/22 04/05/22 18:59 06:59 18:59 Intake Total 696 1500 Output Total 1000 Balance 696 500 Weight 55 kg 56 kg Intake: Intake, IV Titration 696 900 Amount Mvi, Adult No.4 with Vit 76 900 K 10 ml Trace (Conc-1Ml/ Dose) 1 ml Sodium Acetate 30 meq Potassium Chloride 10 meq Magnesium Sulfate gm 0.5 gm Sodium Phosphate 9 mmol In Amino Acids 5 %/Dextrose 20 % 1,000 ml @ 76 mls/hr IV .BY DURATION PRIMO Rx#: [id number] Sodium Acetate 30 meq 620 Potassium Chloride 10 meq Magnesium Sulfate gm 0.5 gm Sodium Phosphate 9 mmol In Amino Acids 5 %/ Dextrose 20 % 1,000 ml @ 76 mls/hr IV .BY DURATION PRIMO Rx#:[id number] Oral 600 Output: Urine 1000 Other: Voiding Method Indwelling Catheter Indwelling Catheter - Exam General: Patient awake and alert. No acute distress. Appears frail and older than stated age. HEENT: Head is atraumatic, normocephalic Sclerae are clear. Pupils equal, round and reactive to light bilaterally. . CV: Heart regular in rate and rhythm positive S1 and S2. No clicks, rubs or murmurs. Peripheral pulses equal. 2/4 Lungs: CTA, No wheezes rales or rhonchi. Respirations even and unlabored. 6L NC Abdomen/GI: Soft. Bowel sounds present in all 4 quadrants. Bowel sounds normoactive. + abdominal tenderness. : Mays catheter in place draining clear, yellow urine Musculoskeletal/ Extremities: DENNIS, + generalized weakness, cachectic Vascular: Radial pulses equal. 2/4, no peripheral edema Skin: Warm and dry. No rash. Neurologic: Oriented times 2-3, more alert today. Less agitated/restless. Speech clearer. Follows commands. Psychiatric: normal affect - Labs CBC & Chem 7: 04/04/22 04:58 04/05/22 06:55 Labs: Abnormal Lab Results - Last 24 Hours (Table) 04/04/22 04/04/22 04/04/22 Range/Units 04:58 04:58 11:56 WBC 13.13 H (4.50-10.00) X 10*3/uL RBC 6.39 H (4.40-5.60) X 10*6/uL Hct 50.4 H (39.6-50.0) % MCV 78.9 L (80.0-97.0) fL MCH 22.2 L (27.0-32.0) pg MCHC 28.2 L (32.0-37.0) g/dL RDW 21.1 H (11.5-14.5) % Absolute Nucleated RBC 0.02 H (0.00-0.00) X 10*3/uL Immature Gran # 0.20 H (0.00-0.04) X 10*3/uL Neutrophils # 8.38 H (1.80-7.70) X 10*3/uL Eosinophils # 0 L (0.04-0.35) X 10*3/uL NRBC/100 WBC Diff 0.2 H (0.0-0.0) /100 WBCS Chloride (98-107) mmol/L Carbon Dioxide 18.5 L (20.0-27.5) mmol/L BUN 57.1 H (9.0-27.0) mg/dL BUN/Creatinine Ratio 47.58 H (12.00-20.00) Ratio Glucose 160 H (70-110) mg/dL POC Glucose (mg/dL) 185 H (70-110) mg/dL Magnesium (1.6-2.3) mg/dL Lactate Dehydrogenase 339 H (120-246) U/L Total Protein 5.1 L (6.2-8.2) g/dL Albumin 3.6 L (3.8-4.9) g/dL Globulin 1.5 L (1.6-3.3) g/dL 04/05/22 04/05/22 04/05/22 Range/Units 00:06 06:03 06:55 WBC (4.50-10.00) X 10*3/uL RBC (4.40-5.60) X 10*6/uL Hct (39.6-50.0) % MCV (80.0-97.0) fL MCH (27.0-32.0) pg MCHC (32.0-37.0) g/dL RDW (11.5-14.5) % Absolute Nucleated RBC (0.00-0.00) X 10*3/uL Immature Gran # (0.00-0.04) X 10*3/uL Neutrophils # (1.80-7.70) X 10*3/uL Eosinophils # (0.04-0.35) X 10*3/uL NRBC/100 WBC Diff (0.0-0.0) /100 WBCS Chloride 111 H (98-107) mmol/L Carbon Dioxide (20.0-27.5) mmol/L BUN 58 H (9.0-27.0) mg/dL BUN/Creatinine Ratio (12.00-20.00) Ratio Glucose 159 H (70-110) mg/dL POC Glucose (mg/dL) 210 H 180 H (70-110) mg/dL Magnesium 2.4 H (1.6-2.3) mg/dL Lactate Dehydrogenase (120-246) U/L Total Protein 4.9 L (6.2-8.2) g/dL Albumin 3.1 L (3.8-4.9) g/dL Globulin (1.6-3.3) g/dL Assessment and Plan Assessment: Symptoms * Pain - "pain is pretty good today"". Continue Tylenol, Neurotin, Fentanyl patch and Dilaudid. York changed to Q8H ATC * Fatigue - Generalized weakness and fatigue, continue TPN and PT * SOB - Yes- chronic dyspnea on exertion, Continue Symbicort, Albuterol, Atrovent and Lasix. On 6L NC. * Insomnia - Occasional, Continue Melatonin prn * N/V - Occasional nausea, Continue Zofran prn * Anxiety - No, continue Ativan and Klonopin prn * Depression - No, Continue Paxil * Confusion - Yes, Continue Seroquel * Agitation - No,continue Seroquel * Hallucinations - No * Appetite/weight loss - + loss of appetite and recent weight loss, encourage PO intake, continue with regular diet and ensure TIDWM and magic cups. Continue Megace. Continue TPN * Dysphagia - No * Constipation - LBM 04/01 x 2. Continue Senokot -S and Miralax daily. Dulcolax suppository prn. * Incontinence - Mays catheter in place for urinary retention * Itch - No * Mucoitis - needs good oral hygiene, continue swish and swallow, mouthkote, and salt and soda mouthwash Plan: Summary/Goals - The patient is alert and oriented x 2-3. He knows he's in the [facility], but continues to think he is in [facility]. reorients easily. He is aware of his condition and why he is here. He knows the year, but was not sure if it was still the end of March or beginning of April. His speech is more comprehensible today. He reports that his pain is "pretty good today". He has not received any Dilaudid, Ativan, or Klonopin in the last 24 hours. He also states that his mouth is better and is aware that he needs to try and eat more. He says that he has been forcing himself to eat because he knows how important it is. He was evaluated by [facility] yesterday for IP rehab. Unfortunately, the patient has endurance issues and will not tolerate 3 hours a day of rehab. They recommend [facility]. Per oncology, he is done with this cycle of chemotherapy and will follow up on an outpatient basis. Plan - Discharge to [facility] when medically cleared Advanced Directives - No, none on file Code Status - DNR Thank you for this consult Antonella Paz [facility] Palliative Care [facility] [id number] Email: [email or web address] Time with Patient: Less than 30
--- NOTE | 2022-04-05 10:54 | P.PN ---
Subjective Progress Note Date: 04/05/22 Hospital course: Patient is a very pleasant 61-year-old male with a past medical history of CLL on [place], chronic kidney stage III, and COPD. He presented to the emergency department on 03/18/22 with a chief complaint of left flank pain. Patient reported this pain began approximately a few weeks ago and significantly worsened over the past few days. He reported the pain still left flank and was accompanied by nausea. He underwent full evaluation in the emergency department. He was found to have significant leukocytosis with WBC count of 18.9 and an acute kidney injury with BUN 26, creatinine 1.72, and GFR 41. Urinalysis was negative for blood, protein, or infection. Covid PCR negative. CT abdomen and pelvis revealed a left perinephritic/retroperitoneal soft tissue suspicious for mass with overall worsening of previously known lymphadenopathy throughout the abdomen and ascending into the mediastinum with persistent splenomegaly consistent with his prior history of lymphoma along with increase and bilateral pleural effusions with left greater than right. Patient was admitted under our services with consultation to oncology, vascular surgery, nephrology, and urology. Abdominal ultrasound was completed revealing a left perinephritic complex vascular mass, recommending further evaluation with MRI. MRI with and without contrast revealed large posterior perinephrotic mass with massive retroperitoneal adenopathy and massive splenomegaly. Oncology consulted interventional radiology to perform biopsy of renal mass. INR remains elevated, unable to complete biopsy until INR has improved. Patient given vitamin K. On 03/23/22, patient was found to be hypoxic and had increasing oxygen needs. Repeat x-ray revealed increasing left lower lobe effusion. Pulmonology re-consulted at this time for evaluation. On 03/25/22 ultrasound of chest was completed which revealed an 11.8 cm pleural effusion pocket. Patient will likely need to u ndergo thoracentesis, however due to persistently elevated INR it was deemed unsafe to perform at this time. Patient currently on palliative care and underwent renal mass biopsy on 03/27/22. He was started on high-dose steroids, pending biopsy results. 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 Patient received fifth dose of steroids and CHOP chemotherapy treatment 04/03/22. Patient has made complete turnaround after receiving CHOP chemotherapy. Pulmonary reconsulted and planning to do thoracentesis for drainage of pleural effusion pocket on 04/06/22. Patient is working with PT/OT and current target discharge plan is for patient to be discharged home with nephew and his along with home care. Physical exam: Pt seen and fully evaluated at bedside this morning, patient sitting up in bed and is alert and oriented to person, time, place, and situation.he remains on 6 L O2 via nasal cannula and turned down to 4 at this time with SPO2 90%. Pt's mentation has improved significatntly. He ate his entire breakfast this morning and had no difficulties swallowing. TPN discontinued. Pt placed on protein supplements 3x daily between meals. Discussed positive turnaround with oncologist, Dr. Azar and discuss possibility of drainage of large left pleural effusion now the patient's condition has improved. Dr. Azar states INR will always remain elevated despite treatment of chemo but recommending to continue with reconsultation of pulmonary for drainage of effusion. Recommend to give FFP just prior to thorascentesis. Discussed with Dr. Sevilla, Charge Rn and they reevaluated and plan for thoracentesis tomorrow morning. Vital signs reviewed and stable. General: Nontoxic, no distress and appears stated age. Thin, malnourished. Derm: Skin warm and dry, normal coloration for ethnicity. Head: Atraumatic, normocephalic and symmetric. Eyes: EOMs intact, no lid lag, and anicteric sclera Mouth: no lip lesions, mucus membranes moist Cardiovascular: regular rate and rhythm with normal S1S2, no murmur, positive posterior tibial pulses bilaterally, and cap refill < 2 seconds. Lungs: Respirations even, regular, and unlabored on 6 L O2 via nasal cannula. Lungs diminished with absent breath sounds in left mid and lower lung. No rhonchi, rales, wheezes or crackles present, and no accessory muscle usage. Abdominal: soft, Bowel sounds 4 quadrants. Ext: No gross muscle atrophy, no edema, no contractures. Patient moving all extremities without any difficulties. Patient sitting up in bed and following commands without any noted problems at this time. Neuro/Psych: Alert and oriented, GCS 14. No neurological deficits noted Assessment and Plan of Care: CLL Left perinephric complex mass status post biopsy on 03/27/22 Massive splenomegaly -MRI with and without contrast revealed large posterior perinephrotic mass with massive retroperitoneal adenopathy and massive splenomegaly. 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 Acute encephalopathy, improving -Likely multifactorial secondary to delirium resulting from medication administration as patient on high-dose steroids as well as narcotics -Neuro checks -Fall precautions -Sitter to remain at bedside to maintain patient's safety. -Safe and supportive care with redirection/reorientation as needed. Leukocytosis -Believed to be reactive secondary to high-dose steroid administration. -We will continue to monitor closely for any signs of infection and with repeat a.m. labs. KEERTHI on CKD, renal function stable Hypercalcemia secondary to underlying lymphoma, improving -Nephrology following, appreciate recommendations -Improved after IV fluid hydration and administration of zoledronic acid. -Patient has M[place] catheter in place secondary to urinary retention. Acute respiratory failure with hypoxia secondary to large left pleural effusion -Ultrasound chest completed revealing an 11.8 cm pleural effusion pocket -Pulmonology was following, and plans for thoracentesis tomorrow morning. -Continue with oxygen supplementation to maintain SpO2 equal to or greater than 90%. Severe protein malnourishment -TPN discontinued as patient is now eating and drinking without any difficulties. Patient to receive supplemental protein drinks 3 times daily between meals. Chronic coagulopathy Chronic anemia of chronic disease Lupus anticogulant -Secondary to CLL, hematology/oncology following. Hypomagnesemia, replaced COPD without acute exacerbation -Continue Symbicort 2 puffs twice daily along with PRN nebulizer treatments for shortness of breath and/or wheezing. CODE STATUS: Full code DVT prophylaxis: SCDs Discussed with: Patient, patient's cousin RN and hematology Anticipated discharge date: Likely sometime between 04/07/22 and 04/08/22 pending outcome of thoracentesis being completed on 04/06/22.. Anticipated discharge place: Home with nephew and his with home care A total of 39 minutes was spent on the care of this complex patient more than 50% of the time was spent in counseling and care coordination. I reviewed the documentation as provided by the CAYLA above, who is the original author of this note. I agree with the documented assessment and plan, with the following changes: none Objective - Vital Signs Vital signs: Vital Signs Temp 97.8 F 04/05/22 04:00 Pulse 87 04/05/22 04:00 Resp 16 04/05/22 04:47 BP 139/72 04/05/22 04:00 Pulse Ox 94 L 04/05/22 04:47 FiO2 50 03/26/22 08:39 Intake & Output 04/04/22 04/05/22 04/05/22 18:59 06:59 18:59 Intake Total 696 1500 Output Total 1000 Balance 696 500 Weight 55 kg 56 kg Intake: Intake, IV Titration 696 900 Amount Mvi, Adult No.4 with Vit 76 900 K 10 ml Trace (Conc-1Ml/ Dose) 1 ml Sodium Acetate 30 meq Potassium Chloride 10 meq Magnesium Sulfate gm 0.5 gm Sodium Phosphate 9 mmol In Amino Acids 5 %/Dextrose 20 % 1,000 ml @ 76 mls/hr IV .BY DURATION ON LICENSE OF [facility] Rx#: [id number] Sodium Acetate 30 meq 620 Potassium Chloride 10 meq Magnesium Sulfate gm 0.5 gm Sodium Phosphate 9 mmol In Amino Acids 5 %/ Dextrose 20 % 1,000 ml @ 76 mls/hr IV .BY DURATION ON LICENSE OF [facility] Rx#:[id number] Oral 600 Output: Urine 1000 Other: Voiding Method Indwelling Catheter Indwelling Catheter Indwelling Catheter - Labs CBC & Chem 7: 04/05/22 14:23 04/05/22 06:55 Labs: Abnormal Lab Results - Last 24 Hours (Table) 04/04/22 04/05/22 04/05/22 Range/Units 11:56 00:06 06:03 Chloride (98-107) mmol/L BUN (9-20) mg/dL Glucose (74-99) mg/dL POC Glucose (mg/dL) 185 H 210 H 180 H (70-110) mg/dL Magnesium (1.6-2.3) mg/dL Total Protein (6.3-8.2) g/dL Albumin (3.5-5.0) g/dL 04/05/22 Range/Units 06:55 Chloride 111 H (98-107) mmol/L BUN 58 H (9-20) mg/dL Glucose 159 H (74-99) mg/dL POC Glucose (mg/dL) (70-110) mg/dL Magnesium 2.4 H (1.6-2.3) mg/dL Total Protein 4.9 L (6.3-8.2) g/dL Albumin 3.1 L (3.5-5.0) g/dL
[2022-04-05 11:03] LABS: Glucose,Whole Blood 233 mg/dL (70-110)
[2022-04-05 11:06] VITALS: BMI 19.9
--- NOTE | 2022-04-05 13:38 | P.PN ---
Subjective Patient is seen for follow-up for acute kidney injury, associated with NSAIDs, hypercalcemia and hypovolemia. Hypercalcemia is secondary to underlying lymphoma Currently maintained on chemotherapy including steroids. Renal function has improved with creatinine now at 0.8 mg/dL. Calcium is 8.7 mg/dL. Patient has had good urine output He is currently with a sitter Objective - Vital Signs Vital signs: Vital Signs Temp 98 F 04/05/22 11:15 Pulse 92 04/05/22 11:36 Resp 20 04/05/22 11:15 BP 131/70 04/05/22 11:15 Pulse Ox 90 L 04/05/22 11:15 FiO2 50 03/26/22 08:39 Intake & Output 04/04/22 04/05/22 04/05/22 18:59 06:59 18:59 Intake Total 696 1500 Output Total 1000 Balance 696 500 Weight 55 kg 56 kg 56 kg Intake: Intake, IV Titration 696 900 Amount Mvi, Adult No.4 with Vit 76 900 K 10 ml Trace (Conc-1Ml/ Dose) 1 ml Sodium Acetate 30 meq Potassium Chloride 10 meq Magnesium Sulfate gm 0.5 gm Sodium Phosphate 9 mmol In Amino Acids 5 %/Dextrose 20 % 1,000 ml @ 76 mls/hr IV .BY DURATION [facility] Rx#: [id number] Sodium Acetate 30 meq 620 Potassium Chloride 10 meq Magnesium Sulfate gm 0.5 gm Sodium Phosphate 9 mmol In Amino Acids 5 %/ Dextrose 20 % 1,000 ml @ 76 mls/hr IV .BY DURATION [facility] Rx#:[id number] Oral 600 Output: Urine 1000 Other: Voiding Method Indwelling Catheter Indwelling Catheter Indwelling Catheter - Exam Patient is awake, comfortable, not in any acute distress. Patient is confused at times. Needing a sitter Examination of the heart S1 and S2 Examination lungs shows decreased breath sounds at the bases Abdomen is soft nontender Examination of the lower extremity shows no significant edema - Labs CBC & Chem 7: 04/04/22 04:58 04/05/22 06:55 Labs: Abnormal Lab Results - Last 24 Hours (Table) 04/05/22 04/05/22 04/05/22 Range/Units 00:06 06:03 06:55 Chloride 111 H (98-107) mmol/L BUN 58 H (9-20) mg/dL Glucose 159 H (74-99) mg/dL POC Glucose (mg/dL) 210 H 180 H (70-110) mg/dL Magnesium 2.4 H (1.6-2.3) mg/dL Total Protein 4.9 L (6.3-8.2) g/dL Albumin 3.1 L (3.5-5.0) g/dL 04/05/22 Range/Units 11:00 Chloride (98-107) mmol/L BUN (9-20) mg/dL Glucose (74-99) mg/dL POC Glucose (mg/dL) 233 H (70-110) mg/dL Magnesium (1.6-2.3) mg/dL Total Protein (6.3-8.2) g/dL Albumin (3.5-5.0) g/dL Assessment and Plan Assessment: 1. Acute kidney injury secondary to NSAIDs, hypercalcemia. Currently improved. 2. CK D stage III a with baseline creatinine 1.2-1.3 secondary to nep hrosclerosis 3. Hypercalcemia associated with lymphoma with elevated one 25-hydroxy vitamin D level at 98 and low PTH. Status post A[place] multiple times. Improved with initiation of steroids and chemotherapy. 4. History of CLL 5. Metabolic acidosis associated with acute kidney injury and IV fluids, status post by mouth bicarb 6. Volume overload currently on IV Lasix, improved 7. Hyperuricemia questionable tumor lysis status post rasburicase 8. Left perinephric/retroperitoneal soft tissue mass likely related to the lymphoma with worsening lymphadenopathy noted on the CT status post biopsy, which showed high-grade lymphoma, currently on chemotherapy Plan: We'll see patient on an as-needed basis.
--- NOTE | 2022-04-05 14:20 | P.PN ---
Subjective Progress Note Date: 04/05/22 Principal diagnosis: Concern of Renal Mass COntinues to improve, with some agitation. Maintained on 4L of 02 NC today Objective - Vital Signs Vital signs: Vital Signs Temp 98 F 04/05/22 11:15 Pulse 92 04/05/22 11:36 Resp 20 04/05/22 11:15 BP 131/70 04/05/22 11:15 Pulse Ox 90 L 04/05/22 11:15 FiO2 50 03/26/22 08:39 Intake & Output 04/04/22 04/05/22 04/05/22 18:59 06:59 18:59 Intake Total 696 1500 Output Total 1000 Balance 696 500 Weight 55 kg 56 kg 56 kg Intake: Intake, IV Titration 696 900 Amount Mvi, Adult No.4 with Vit 76 900 K 10 ml Trace (Conc-1Ml/ Dose) 1 ml Sodium Acetate 30 meq Potassium Chloride 10 meq Magnesium Sulfate gm 0.5 gm Sodium Phosphate 9 mmol In Amino Acids 5 %/Dextrose 20 % 1,000 ml @ 76 mls/hr IV .BY DURATION [facility] Rx#: [id number] Sodium Acetate 30 meq 620 Potassium Chloride 10 meq Magnesium Sulfate gm 0.5 gm Sodium Phosphate 9 mmol In Amino Acids 5 %/ Dextrose 20 % 1,000 ml @ 76 mls/hr IV .BY DURATION [facility] Rx#:[id number] Oral 600 Output: Urine 1000 Other: Voiding Method Indwelling Catheter Indwelling Catheter Indwelling Catheter - Exam Gen.: NAD HEENT: Mucosa moist, no conjunctival pallor. Lymph:Bilateral small cervical lymphadenopathy Lungs: No respiratory distress. Heart: Tachy Abdomen: Soft, nontender. Awake, intermittent confusion ALert - Labs CBC & Chem 7: 04/04/22 04:58 04/05/22 06:55 Labs: Abnormal Lab Results - Last 24 Hours (Table) 04/05/22 04/05/22 04/05/22 Range/Units 00:06 06:03 06:55 Chloride 111 H (98-107) mmol/L BUN 58 H (9-20) mg/dL Glucose 159 H (74-99) mg/dL POC Glucose (mg/dL) 210 H 180 H (70-110) mg/dL Magnesium 2.4 H (1.6-2.3) mg/dL Total Protein 4.9 L (6.3-8.2) g/dL Albumin 3.1 L (3.5-5.0) g/dL 04/05/22 Range/Units 11:00 Chloride (98-107) mmol/L BUN (9-20) mg/dL Glucose (74-99) mg/dL POC Glucose (mg/dL) 233 H (70-110) mg/dL Magnesium (1.6-2.3) mg/dL Total Protein (6.3-8.2) g/dL Albumin (3.5-5.0) g/dL Assessment and Plan Plan: CT scan - abdomen: report reviewed US - abdomen: report reviewed Assessment and Plan (1) Left kidney mass Narrative/Plan: Biopsy is consistent with high grade lymphoma transformation - Status Post Day One CHOP chemo on 04/03/22 - Status Post GCSF - Daily CBC w/diff, CMP, MAg, Phos, Uric Acid, and LDH - Monitor closely for TLS Current Visit: Yes Status: Acute Code(s): N28.89 - OTHER SPECIFIED DISORDERS OF KIDNEY AND URETER SNOMED Code(s): 513870456 (2) Neoplasm related pain Narrative/Plan: - Continue regimen and Bowel protocol Current Visit: Yes Status: Acute Code(s): G89.3 - NEOPLASM RELATED PAIN (ACUTE) (CHRONIC) SNOMED Code(s): 23223706122506 Dr. Majano: I have completed the full history and physical and developed the above impression and plan, agree with dictation dictated as a scribe
[2022-04-05 14:38] LABS: Anisocytosis Slight; Basophils # (A) 0.1 k/uL (0-0.2); Basophils % (A) 0 %; Eosinophils # (A) 0.2 k/uL (0-0.7); Eosinophils % (A) 1 %; HCT 45.1 % (39.0-53.0); Hypochromasia Marked; Lymphocytes # (A) 2.6 k/uL (1.0-4.8); Lymphocytes % (A) 9 %; MCH 22.5 pg (25.0-35.0); MCHC 28.6 g/dL (31.0-37.0); MCV 78.8 fL (80.0-100.0); Mean Platelet Volume 8.4; Microcytosis Slight; Monocytes # (A) 0.3 k/uL (0-1.0); Monocytes % (A) 1 %; Neutrophils # (A) 27.3 k/uL (1.3-7.7); Neutrophils % (A) 89 %; Platelet Count 322 k/uL (150-450); RBC 5.72 m/uL (4.30-5.90); RDW 18.2 % (11.5-15.5); WBC 30.6 k/uL (3.8-10.6)
[2022-04-05 14:47] LABS: HGB 12.9 gm/dL (13.0-17.5)
[2022-04-05 14:49] LABS: Magnesium 2.3 mg/dL (1.6-2.3); Phosphorus 3.3 mg/dL (2.5-4.5); Uric Acid 7.9 mg/dL (3.5-8.5)
[2022-04-05] MEDS: ALBUTEROL NEBULIZED 2.5 MG/3 ML INHALATION PRN ×2 (15:24→19:16)
[2022-04-05 17:11] LABS: Glucose,Whole Blood 133 mg/dL (70-110)
[2022-04-05 17:14] LABS: Triglycerides 66.8 mg/dL (0.00-149.00)
--- NOTE | 2022-04-05 18:30 | P.PN ---
Subjective Progress Note Date: 04/05/22 This is a 61-year-old male patient, known history of COPD, coming in with a left flank pain has been going on for few weeks with progressive worsening over the past few days. . He is known to have COPD maintained on a combination of Advair and Spiriva on outpatient basis. He also carries a diagnosis of CLL that was followed up by Dr. Faulkner. He is known to have extensive lymphadenopathy related to his CLL I was asked to reevaluate this patient regarding the pleural effusion. This patient is currently postop systemic chemotherapy for an underlying diffuse large B-cell lymphoma. The patient received systemic chemotherapy and the patient completed CHOP regimen. The patient is feeling better. Less lethargic and more alert and awake and communicating. The same time, the patient is expressing some shortness of breath and his chest x-ray has revealed a large left-sided pleural effusion. I was forced to perform a thoracentesis on this patient for symptomatic relief. Noted the patient's PT/INR is chronically elevated related to previous hematologic abnormalities related to lupus antico agulant. He is known to have COPD. On his blood work today, the patient is a white cell count of 30.6 and hemoglobin 12.9 and platelet count of 22. Electrolytes are essentially within normal limits. Objective - Vital Signs Vital signs: Vital Signs Temp 98 F 04/05/22 11:15 Pulse 92 04/05/22 15:45 Resp 20 04/05/22 11:15 BP 131/70 04/05/22 11:15 Pulse Ox 90 L 04/05/22 11:15 FiO2 50 03/26/22 08:39 Intake & Output 04/04/22 04/05/22 04/05/22 18:59 06:59 18:59 Intake Total 696 1500 912 Output Total 1000 350 Balance 696 500 562 Weight 55 kg 56 kg 56 kg Intake: Intake, IV Titration 696 900 912 Amount Mvi, Adult No.4 with Vit 76 900 912 K 10 ml Trace (Conc-1Ml/ Dose) 1 ml Sodium Acetate 30 meq Potassium Chloride 10 meq Magnesium Sulfate gm 0.5 gm Sodium Phosphate 9 mmol In Amino Acids 5 %/Dextrose 20 % 1,000 ml @ 76 mls/hr IV .BY DURATION [facility] Rx#: [id number] Sodium Acetate 30 meq 620 Potassium Chloride 10 meq Magnesium Sulfate gm 0.5 gm Sodium Phosphate 9 mmol In Amino Acids 5 %/ Dextrose 20 % 1,000 ml @ 76 mls/hr IV .BY DURATION [facility] Rx#:[id number] Oral 600 Output: Urine 1000 350 Other: Voiding Method Indwelling Catheter Indwelling Catheter Indwelling Catheter - Exam Vital signs reviewed and stable. the patient is currently on 6 L of O2 nasal cannula and the patient has a BMI of 19.9. General: non toxic, no distress, appears at stated age Derm: warm, dry, diffuse maculopapular rash with convolesence on the abdomen Head: atraumatic, normocephalic, symmetric Eyes: EOMI, no lid lag, anicteric sclera Mouth: no lip lesion, mucus membranes moist Cardiovascular: S1S2 reg, no murmur, positive posterior tibial pulse bilateral, Lungs: Decreased bs bilateral, no rhonchi, no rales , no accessory muscle use, diminished breath sound left lung base along with dullness to percussion consistent with pleural effusion. Abdominal: soft, nontender to palpation, no guarding, no appreciable organomegaly Ext: no gross muscle atrophy, no edema, no contractures Neuro: CN II-XI grossly intact, no focal neuro deficits Psych: Alert, oriented, appropriate affect - Labs CBC & Chem 7: 04/05/22 14:23 04/05/22 06:55 Labs: Abnormal Lab Results - Last 24 Hours (Table) 04/05/22 04/05/22 04/05/22 Range/Units 00:06 06:03 06:55 WBC (3.8-10.6) k/uL Hgb (13.0-17.5) gm/dL MCV (80.0-100.0) fL MCH (25.0-35.0) pg MCHC (31.0-37.0) g/dL RDW (11.5-15.5) % Neutrophils # (1.3-7.7) k/uL Chloride 111 H (98-107) mmol/L BUN 58 H (9-20) mg/dL Glucose 159 H (74-99) mg/dL POC Glucose (mg/dL) 210 H 180 H (70-110) mg/dL Magnesium 2.4 H (1.6-2.3) mg/dL Lactate Dehydrogenase (313-618) U/L Total Protein 4.9 L (6.3-8.2) g/dL Albumin 3.1 L (3.5-5.0) g/dL 04/05/22 04/05/22 04/05/22 Range/Units 11:00 14:23 14:23 WBC 30.6 H (3.8-10.6) k/uL Hgb 12.9 L D (13.0-17.5) gm/dL MCV 78.8 L (80.0-100.0) fL MCH 22.5 L (25.0-35.0) pg MCHC 28.6 L (31.0-37.0) g/dL RDW 18.2 H (11.5-15.5) % Neutrophils # 27.3 H (1.3-7.7) k/uL Chloride (98-107) mmol/L BUN (9-20) mg/dL Glucose (74-99) mg/dL POC Glucose (mg/dL) 233 H (70-110) mg/dL Magnesium (1.6-2.3) mg/dL Lactate Dehydrogenase 698 H (313-618) U/L Total Protein (6.3-8.2) g/dL Albumin (3.5-5.0) g/dL 04/05/22 Range/Units 17:07 WBC (3.8-10.6) k/uL Hgb (13.0-17.5) gm/dL MCV (80.0-100.0) fL MCH (25.0-35.0) pg MCHC (31.0-37.0) g/dL RDW (11.5-15.5) % Neutrophils # (1.3-7.7) k/uL Chloride (98-107) mmol/L BUN (9-20) mg/dL Glucose (74-99) mg/dL POC Glucose (mg/dL) 133 H (70-110) mg/dL Magnesium (1.6-2.3) mg/dL Lactate Dehydrogenase (313-618) U/L Total Protein (6.3-8.2) g/dL Albumin (3.5-5.0) g/dL Assessment and Plan Plan: Acute dyspnea/hypoxic respiratory failure, multifactorial. There is obvious contribution related to the large pleural effusion as noted on the chest x-ray. Ultrasound the chest was done on 03/25/2022 and the patient was found to have a large 11 7 to be active pocket of pleural fluid on the left. Chronic lymphocytic leukemia/CLL with history of disease progression with extensive abdominal and mediastinal lymphadenopathy consistent with large diffuse B-cell lymphoma the patient was treated with CHOP chemotherapy on 04/03/2022. Encephalopathy, improving Lupus anticoagulant with underlying abnormal correlation profile on blood work COPD maintained on examination of Advair and Luiva on outpatient basis Previous history of COVID 19 infection in October 2020 Chronic anemia Coagulopathy, likely secondary to a positive lupus anticoagulant mild hypercalcemia, recovered Severe protein malnutrition and the patient was taken off the TPN and he is eating and drinking for now. Plan We'll plan for thoracentesis in a.m. this will be done for for symptomatic relief and the fluid was sent for analysis.
[2022-04-05] MEDS ORDERED: 1: MVI, ADULT NO.4 WITH VIT K 10 ML, TRACE (CONC-1ML/DOSE) 1 ML, SODIUM ACETATE 30 MEQ, IV SCH ×7 (20:00)
[2022-04-05] MEDS: PARoxetine 20 MG TAB PO SCH (20:20)
[2022-04-05 23:58] LABS: Glucose,Whole Blood 164 mg/dL (70-110)
[2022-04-06] MEDS: DRY MOUTH SPRAY 44.3 SPRAY/44.3 ML SPRAY MUCOUS MEM SCH ×5 (03:21→21:59)
[2022-04-06 05:49] LABS: Glucose,Whole Blood 103 mg/dL (70-110)
[2022-04-06] MEDS: SENNOSIDES-DOCUSATE SODIUM 1 EACH TAB PO SCH ×2 (08:13→22:00)
[2022-04-06] MEDS: HYDROcodone/APAP 7.5-325MG 1 EACH TAB PO SCH ×3 (08:14→23:06)
[2022-04-06] MEDS: GABAPENTIN 100 MG CAP PO SCH ×2 (08:14→22:00)
[2022-04-06] MEDS: bisacodyL 5 MG TABLET.DR PO SCH (08:14)
[2022-04-06] MEDS: SODIUM BICARBONATE TAB 650 MG TAB PO SCH ×2 (08:14→22:00)
[2022-04-06] MEDS: MAG HYDROX/AL HYDROX/SIMETH 30 ML, LIDOCAINE VISCOUS 2% 30 ML, diphenhydrAMINE ELIXIR 7... PO SCH ×15 (08:17→22:00)
[2022-04-06] MEDS: IPRATROPIUM 0.5 MG/2.5 ML NEBU INHALATION SCH ×4 (08:25→19:27)
[2022-04-06] MEDS: SYMBICORT 80-4.5 MCG INHALER INHALATION SCH ×2 (08:25→19:27)
[2022-04-06] MEDS: QUEtiapine 50 MG TAB PO SCH ×2 (08:26→22:00)
[2022-04-06] MEDS: predniSONE 50 MG TAB PO SCH (08:26)
[2022-04-06] MEDS: PANTOPRAZOLE 40 MG/10 ML VIAL IVP SCH ×2 (08:26→22:00)
[2022-04-06] MEDS: MEGESTROL 400 MG/10 ML CUP PO SCH (08:27)
[2022-04-06] MEDS: polyethylene glycoL 3350 17 GM POWD.PACK PO SCH (08:29)
[2022-04-06 08:55] LABS: HCT 43.5 % (39.6-50.0); HGB 12.8 g/dL (13.0-17.0); MCH 22.5 pg (27.0-32.0); MCHC 29.4 g/dL (32.0-37.0); MCV 76.3 fL (80.0-97.0); Mean Platelet Volume 9.3 fL (9.5-12.2); NRBC Per 100 WBC 0 /100 WBCS (0.0-0.0); Platelet Count 313 X 10*3/uL (140-440); RDW 20.9 % (11.5-14.5); WBC 22.02 X 10*3/uL (4.50-10.00)
[2022-04-06 09:11] LABS: LDH 269 U/L (120-246); Magnesium 2.2 mg/dL (1.5-2.4); Uric Acid 7.2 mg/dL (3.7-8.7)
[2022-04-06 09:24] LABS: ALT <5 U/L (10-49); AST 9 U/L (14-35); Albumin 3.4 g/dL (3.8-4.9); Albumin/Globulin Ratio 2.43 (1.60-3.17); Alkaline Phosphatase 65 U/L (41-126); BUN/Creat Ratio 58.33 Ratio (12.00-20.00); Blood Urea Nitrogen 52.5 mg/dL (9.0-27.0); Calcium 9.3 mg/dL (8.7-10.3); Carbon Dioxide 21.7 mmol/L (20.0-27.5); Chloride 113 mmol/L (96-109); Globulin 1.4 g/dL (1.6-3.3); Glucose 107 mg/dL (70-110); Non-African American GFR(CKD) 90.6 (60.0-200.0); Phosphorus 3.4 mg/dL (2.4-5.1); Potassium 4.6 mmol/L (3.5-5.5); Sodium 144 mmol/L (135-145); Total Protein 4.8 g/dL (6.2-8.2)
[2022-04-06 09:45] LABS: Basophils # (M) 0 X 10*3/uL (0.00-0.10); Eosinophils # (M) 0 X 10*3/uL (0.04-0.35); Lymphocytes # (M) 3.96 X 10*3/uL (0.90-5.00); Monocytes # (M) 0.22 X 10*3/uL (0.20-1.00); Neutrophils # (M) 17.84 X 10*3/uL (2.00-8.90); Neutrophils % (M) 81 %
--- NOTE | 2022-04-06 10:17 | P.PN ---
Subjective Progress Note Date: 04/06/22 Principal diagnosis: Renal mass The patient is a 61-year-old male patient, known history of CLL on [place], chronic kidney stage III, COPD. He presented to the [facility] on 03/18/22 with abdominal pain has been going on for few weeks with progressive worsening over the past fe w days. Patient is nauseous but no vomiting. No hematemesis. No hematuria. Patient was taken [id number] naproxen and ibuprofen for his pain control for the past few days. He stated that he was supposed to follow-up with Dr. Faulkner from oncology last month but he canceled his appointment. Patient has a chronic exertional dyspnea, but it seems to be worsening. He is known to have COPD maintained on 3L home O2, and a combination of Advair and Spiriva on outpatient basis. He also carries a diagnosis of CLL that was followed up by Dr. Faulkner. He is known to have extensive lymphadenopathy related to his CLL. Based on the most recent oncology evaluation, there has been progression his CLL based on progression his lymphadenopathy. In the [facility], the patient was found to have a coagulation profile was abnormal, and the patient has been quite neuropathic even prior admissions. An abdominal CT of the abdomen and pelvis was done and it showed a left perinephric/retroperitoneal soft tissue density which is either a mass versus hematoma and this was not present on previous evaluation or there has been probably a subtle finding in 2020. There is also overall worsening in the lymphadenopathy about the abdomen and ascending into the mediastinum with splenomegaly. The patient also had small bilateral pleural effusions L>R. Abdominal ultrasound was then completed revealing a left perinephritic complex vascular mass, recommending further evaluation with MRI. MRI with and without contrast revealed large posterior perinephrotic mass with massive retroperitoneal adenopathy and massive splenomegaly. Oncology consulted interventional radiology to perform biopsy of renal mass. I NR remains elevated, unable to complete biopsy until INR has improved. Patient given vitamin K. On 03/23/22, patient was found to be hypoxic and had increasing oxygen needs. Repeat x-ray revealed increasing left lower lobe effusion. Pulmonology re-consulted at this time for evaluation. On 03/25/22 ultrasound of chest was completed which revealed an 11.8 cm pleural effusion pocket. Patient will likely need to undergo thoracentesis. However, INR still remains elevated at this time despite receiving multiple doses of Vitamin K. Oncology and interventional radiology continue to follow. The patient will also undergo biopsy of renal mass. Both the thoracentesis and the renal biopsy is on hold until the patient's INR is less than 1.5. 03/26 The patient was lethargic during examination. He was confused and unable to follow a conversation fully. He did state he still has lower left quadrant pain, but it is mild and much better today. He received Dilaudid prior to examination. Spoke with the patient's nephew, Dejon, via telephone. He states he is the patient's next of kin and would like to be updated regularly. He was told the patient's procedures are still on hold because his blood is too thin despite the vitamin K that was given. Awaiting oncology's recommendations. Dejon has never had conversations with the patient regarding his goals of care or wishes. Code status discussed at length. Dejon would like to wait for the renal biopsy and the thoracentesis before deciding on a plan of care moving forward. He would like the patient to remain a full code. 03/27 The patient is lying in bed and appears uncomfortable. He c/o LLQ pain. No family present at time of examination. Patient still slightly confused and has garbled speech.The patient's Fentanyl patch was discontinued yesterday. Per RN, the patient was barely responsive and Narcan had to be administered. Low d ose Avon ATC was added to pain regimen in attempt to keep pain more controlled. Dilaudid IV still available prn for severe pain. Discussed pain medication plan with RN, requested she call with any issues. Patient will likely need anther adjustment in pain medication. The patient denies any nausea. He states he has not been eating much due to a loss of appetite. Wanda added. The patient is currently on 9L NC with slightly labored breathing. SPO2 94%. Awaiting pulmonary to determine if patient will be able to have a thoracentesis today, INR 3.3 today despite receiving vitamin K. 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 Oncology has left message for IR as a biopsy for possible transformation of CLL is needed and per their message Saturday was holding off related to coagulopathy. Returned to patient's bedside to reassess pain. The patient woke up easily. He was a little confused as to where he was and what was going on. He reoriented easily. He stated his pain was "ok". The patient's nephew was present. Education was provided regarding the underlying conditions and poor prognosis. Code status was also addressed again. The patient's nephew is unsure about what to do. He would like to take some time to talk with the patient and his family. The patient is to remain a full code for now. The pulmonary service feels given the patients high INR, a thoracentesis would not be safe at this time. They do not feel like he would tolerate the procedure well. A lymph node biopsy is scheduled to be done later this afternoon. 03/28 The patient is lethargic, but awakens easily. He c/o abdominal pain. Avon dose increased to 7.5/325mg. The patient is very weak and debilitated. Code status addressed with patient who stated "I don't know". He is confused and unable to follow a conversation fully. His insight and judgment is not intact at this time. Spoke to oncology [employer] via telephone. She is hoping the retroperitoneal mass biopsy results come back tomorrow. She stated if his lymphoma has transformed to [place], it is very treatable and even considered curable. Updated the patient's nephew (DPOA), Dejon, via telephone. He is agreea ble in waiting for biopsy results before considering hospice. However, Dejon did agree to make the patient a DNR. 03/29 The patient was able to tell me he is in the hospital, the correct year, and his last name. He is lethargic, but wakens easily. Patient was receiving IV Dilaudid approximately every 2 hours despite scheduled Avon. Pain regimen changed to a low dose Fentanyl patch, and Avon and Dilaudid prn. Awaiting biopsy results for plan of care. Patient's nephew updated. 03/30 Patient resting in bed with eyes closed, no distress noted. Awakens easily to verbal stimulus. Stated he is "alright", and his pain is "ok" right now. Patient consumer safety officer at bedside. Patient's nephew and sister is at the bedside. They stated they came early in hopes of talking to some of the physic ians, especially oncology. Contacted oncology in attempt of getting a time frame for their patient rounds the family. U[employer] stated they are in the clinic this morning and will start rounding approximately 1300. Family awaiting biopsy results to make decisions moving forward, hospice vs. aggressive treatment. They have multiple questions regarding treatment if the patient's lymphoma has in fact transformed to Ruffin's. Plans in place for PICC line placement and TPN. Education provided regarding pain medication regimen. They agree patient appears comfortable. 1500 Family awaiting oncology for update. Patient going to IR for PICC line placement. Spoke to RN and family, asked them to call if any questions or concerns. There is no palliative care coverage over the weekend. Family given personal cell phone number to call if needed. 04/02 Patient confused, restless, and pulling at telemetry cables when examined. Nephew asleep at bedside. The patient states it is 2021 correctly, but when asked what month it is he states it is 2021 again. He stated he was in the [facility], but did not know what building he was in when asked specifically. He does not know who the president is either. Seroquel added BID. He stated his abdomen hurts a lot, but was unable to give a number of severity on a scale of 1-10. Fentanyl patch dose increased. Spoke to RN regarding new pain regimen. Patient consumer safety officer at bedside. The oncologist had a lengthy discussion with the family on Saturday. They were advised that clinically the patient is more likely to either progressive CLL, or transformation to a more aggressive lymphoproliferative malignancy subtype, with the latter being favored. As most of lymphoproliferative malignancies are very treatable, but, specifically fast responses to treatment, it would be reasonable to continue aggressive supportive care with plan for active treatment, assuming pathology confirms a treatable. Awaiting the final pathology to decide for definitive regimen, it was recommended that the patient be treated with high-dose Decadron. The family was also advised that if the pathology showed a new, hard to treat malignancy, or a very aggressive lymphoid malignancy, requiring very high-dose regimens, it would be very reasonable to consider comfort care. In addition, the patient continued to decline, while on high-dose Decadron, it would also be recommended to consider the same. They had decided to continue current aggressive medical management. 04/03 The patient is restless and confused. He is awake,alert, and oriented to self. He stated he is in [facility]. When asked the month and year he answered 2021 for both questions. No family present at time of examination. He c/o abdominal pain. Nursing staff does not seem to be utilizing the prn Avon, but is giving the IV Dilaudid. Avon changed to Q6H ATC. Continue Fentanyl patch. 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 Spoke with patient's nephew, Dejon, via telephone and reviewed the plan to start chemo today and the revised pain regimen. All questions answered. 04/04 Patient resting in bed with consumer safety officer at bedside. Patient more alert today. He is less restless and does not appear agitated. However, he is still confused and impulsive at times. His speech is clearer and easier to understand. He states he is still having abdominal pain, but it has improved. He is cracking jokes and smiling today. He is scheduled for day 2 of his chemo regimen today. Spoke to Dejon via telephone and updated him. He states he will not be here today to visit, but several other family members will be. 04/05 The patient is alert and oriented x 2-3. He knows he's in the hospital, but continues to think he is in [facility]. He reorients easily. He is aware of his condition and why he is here. He knows the year, but was not sure if it was still the end of March or beginning of April. His speech is more comprehensible today. He reports that his pain is "pretty good today". He has not received any Dilaudid, Ativan, or Klonopin in the last 24 hours. He also states that his mouth is better and is aware that he needs to try and eat more. He says that he has been forcing himself to eat because he knows how important it is. He was evaluated by PM&R yesterday for IP rehab. Unfortunately, the patient has endurance issues and will not tolerate 3 hours a day of rehab. They recommend SWETA. Per oncology, he is done with this cycle of chemotherapy and will follow up on an outpatient basis. Dejon updated on patient's plan of care via telephone. He stated he would be up to visit this evening,. Objective - Vital Signs Vital signs: Vital Signs Temp 98.3 F 04/06/22 05:48 Pulse 75 04/06/22 08:37 Resp 18 04/06/22 05:48 BP 148/82 04/06/22 05:48 Pulse Ox 94 L 04/06/22 05:48 FiO2 50 03/26/22 08:39 Intake & Output 04/05/22 04/06/22 04/06/22 18:59 06:59 18:59 Intake Total 912 590 Output Total 350 800 Balance 562 -210 Weight 56 kg 56.1 kg Intake: Intake, IV Titration 912 Amount Mvi, Adult No.4 with Vit 912 K 10 ml Trace (Conc-1Ml/ Dose) 1 ml Sodium Acetate 30 meq Potassium Chloride 10 meq Magnesium Sulfate gm 0.5 gm Sodium Phosphate 9 mmol In Amino Acids 5 %/Dextrose 20 % 1,000 ml @ 76 mls/hr IV .BY DURATION [facility] Rx#: [id number] Oral 590 Output: Urine 350 800 Straight 800 Other: Voiding Method Indwelling Catheter Indwelling Catheter Indwelling Catheter # Bowel Movements 1 - Exam General: Patient awake and alert. No acute distress. Appears frail. HEENT: Head is atraumatic, normocephalic Sclerae are clear. Pupils equal, round and reactive to light bilaterally. . CV: Heart regular in rate and rhythm positive S1 and S2. No clicks, rubs or murmurs. Peripheral pulses equal. 2/4 Lungs: CTA, No wheezes rales or rhonchi. Respirations even and unlabored. 6L NC Abdomen/GI: Soft. Bowel sounds present in all 4 quadrants. Bowel sounds norm oactive. + abdominal tenderness. : Mays catheter in place draining clear, yellow urine Musculoskeletal/ Extremities: DENNIS, + generalized weakness, cachectic Vascular: Radial pulses equal. 2/4, no peripheral edema Skin: Warm and dry. No rash. Neurologic: Oriented times 2-3, more alert today. Less agitated/restless. Speech clearer. Follows commands. Psychiatric: normal affect - Labs CBC & Chem 7: 04/06/22 06:00 04/06/22 06:00 Labs: Abnormal Lab Results - Last 24 Hours (Table) 04/05/22 04/05/22 04/05/22 Range/Units 11:00 14:23 14:23 WBC 30.6 H (3.8-10.6) k/uL RBC (4.40-5.60) X 10*6/uL Hgb 12.9 L D (13.0-17.5) gm/dL MCV 78.8 L (80.0-100.0) fL MCH 22.5 L (25.0-35.0) pg MCHC 28.6 L (31.0-37.0) g/dL RDW 18.2 H (11.5-15.5) % MPV (9.5-12.2) fL Neutrophils # 27.3 H (1.3-7.7) k/uL Neutrophils # (Manual) (2.00-8.90) X 10*3/uL Eosinophils # (Manual) (0.04-0.35) X 10*3/uL Chloride (96-109) mmol/L Anion Gap (10.00-18.00) mmol/L BUN (9.0-27.0) mg/dL BUN/Creatinine Ratio (12.00-20.00) Ratio POC Glucose (mg/dL) 233 H (70-110) mg/dL AST (14-35) U/L ALT (10-49) U/L Lactate Dehydrogenase 698 H (313-618) U/L Total Protein (6.2-8.2) g/dL Albumin (3.8-4.9) g/dL Globulin (1.6-3.3) g/dL 04/05/22 04/05/22 04/06/22 Range/Units 17:07 23:52 06:00 WBC 22.02 H (3.8-10.6) k/uL RBC 5.70 H (4.40-5.60) X 10*6/uL Hgb 12.8 L (13.0-17.5) gm/dL MCV 76.3 L (80.0-100.0) fL MCH 22.5 L (25.0-35.0) pg MCHC 29.4 L (31.0-37.0) g/dL RDW 20.9 H (11.5-15.5) % MPV 9.3 L (9.5-12.2) fL Neutrophils # (1.3-7.7) k/uL Neutrophils # (Manual) 17.84 H (2.00-8.90) X 10*3/uL Eosinophils # (Manual) 0 L (0.04-0.35) X 10*3/uL Chloride (96-109) mmol/L Anion Gap (10.00-18.00) mmol/L BUN (9.0-27.0) mg/dL BUN/Creatinine Ratio (12.00-20.00) Ratio POC Glucose (mg/dL) 133 H 164 H (70-110) mg/dL AST (14-35) U/L ALT (10-49) U/L Lactate Dehydrogenase (313-618) U/L Total Protein (6.2-8.2) g/dL Albumin (3.8-4.9) g/dL Globulin (1.6-3.3) g/dL 04/06/22 Range/Units 06:00 WBC (3.8-10.6) k/uL RBC (4.40-5.60) X 10*6/uL Hgb (13.0-17.5) gm/dL MCV (80.0-100.0) fL MCH (25.0-35.0) pg MCHC (31.0-37.0) g/dL RDW (11.5-15.5) % MPV (9.5-12.2) fL Neutrophils # (1.3-7.7) k/uL Neutrophils # (Manual) (2.00-8.90) X 10*3/uL Eosinophils # (Manual) (0.04-0.35) X 10*3/uL Chloride 113 H (96-109) mmol/L Anion Gap 9.30 L (10.00-18.00) mmol/L BUN 52.5 H (9.0-27.0) mg/dL BUN/Creatinine Ratio 58.33 H (12.00-20.00) Ratio POC Glucose (mg/dL) (70-110) mg/dL AST 9 L (14-35) U/L ALT <5 L (10-49) U/L Lactate Dehydrogenase 269 H (313-618) U/L Total Protein 4.8 L (6.2-8.2) g/dL Albumin 3.4 L (3.8-4.9) g/dL Globulin 1.4 L (1.6-3.3) g/dL Assessment and Plan Assessment: Symptoms * Pain - "pain is good". Continue Tylenol, Neurotin, Fentanyl patch, Avon, and Dilaudid. * Fatigue - Generalized weakness and fatigue, continue TPN and PT * SOB - Yes- Improving. Continue Symbicort, Albuterol, Atrovent and Lasix. Uses 3L home O2. Currently on 6L NC. * Insomnia - Occasional, Continue Melatonin prn * N/V - No, Continue Zofran prn * Anxiety - No, continue Ativan and Klonopin prn * Depression - No, Continue Paxil * Confusion - Yes, Continue Seroquel - improving * Agitation - No,continue Seroquel * Hallucinations - No * Appetite/weight loss - + loss of appetite and recent weight loss, encourage PO intake, continue with regular diet and ensure TIDWM and magic cups. Continue Megace. Continue TPN * Dysphagia - No * Constipation - LBM 04/06. Continue Senokot -S and Miralax daily. Dulcolax suppository prn. * Incontinence - Mays catheter in place for urinary retention * Itch - No * Mucoitis - needs good oral hygiene, continue swish and swallow, mouthkote, and salt and soda mouthwash - Improving Plan: Summary/Goals - The patient is very talkative today. He is knows he is in [facility] today and why he is here. He states it is May 2022, but reorients to time easily. He is aware that Leonard Lucas is the president. He state s that he is "doing fine and anxious to go home". He reports his pain is well controlled and requests to changes be made to the regimen at this time. He is currently on a Fentanyl 25mg patch and Avon 7.5/325 mg Q8H ATC. He has Dilaudid prn breakthrough pain, but has not needed any in approx 48 hrs. When asked what his goal is, he stated "I want it all". He states he has know doubt he can get stronger/better. He also stated "I don't know how much health I can achieve, but it is up to me to put in the work". He is agreeable to return home with his nephew, Dejon, with [facility] and PT/OT services. The patient is to have a left-sided thoracentesis by the pulmonary service today to optimize his breathing before discharge. Plan - Discharge home with nephew, HHC, and PT/OT when cleared medically Advanced Directives - No, none on file Code Status - DNR Thank you for this consult Antonella Paz [facility] Palliative Care [facility] [address] Email: [email or web address] Time with Patient: Less than 30
[2022-04-06] MEDS: DEXAMETHASONE SOD PHOS (MDV) 100 MG/10 ML VIAL IVP SCH (10:53)
--- NOTE | 2022-04-06 13:18 | XR ---
EXAMINATION TYPE: XR chest 1V portable DATE OF EXAM: 04/06/2022 HISTORY: Post left sided thoracentesis COMPARISON: 03/27/2022 TECHNIQUE: Single view of the chest is submitted. FINDINGS: Demonstrated are scattered senescent parenchymal change. Basilar infiltrates and/or atelectasis with bilateral pleural effusions. Diminution in left-sided eff usion. No evidence for pneumothorax. The heart is stable. Hilar and mediastinal structures are within normal limits. Degenerative changes are seen of the dorsal spine. IMPRESSION: 1. Diminution in left-sided effusion. No evidence for pneumothorax.
--- NOTE | 2022-04-06 13:55 | P.PN ---
Subjective Progress Note Date: 04/06/22 This is a 61-year-old male patient, known history of COPD, coming in with a left flank pain has been going on for few weeks with progressive worsening over the past few days. . He is known to have COPD maintained on a combination of Advair and Spiriva on outpatient basis. He also carries a diagnosis of CLL that was followed up by Dr. Faulkner. He is known to have extensive lymphadenopathy related to his CLL We were asked to reevaluate this patient regarding the pleural effusion. This patient is currently postop systemic chemotherapy for an underlying diffuse large B-cell lymphoma. The patient received systemic chemotherapy and the patient completed CHOP regimen. The patient is feeling better. Less lethargic and more alert and awake and communicating. The same time, the patient is expressing some shortness of breath and his chest x-ray has revealed a large left-sided pleural effusion. I was forced to perform a thoracentesis on this patient for symptomatic relief. Noted the patient's PT/INR is chronically elevated related to previous hematologic abnormalities related to lupus antic oagulant. He is known to have COPD. On his blood work today, the patient is a white cell count of 30.6 and hemoglobin 12.9 and platelet count of 22. Electrolytes are essentially within normal limits. The patient is seen today 04/06/2022 in follow-up on the regular medical floor. He is currently sitting up in bed. Awake and alert in no acute distress. He denies any worsening shortness of breath, cough or congestion. He is currently maintaining good O2 saturations in the 90s on 6 L high flow nasal cannula. He's been afebrile. Hemodynamically stable. The cultures revealed no growth. White count 20.0. Hemoglobin 12.8. Platelets 313. Sodium 134. Potassium 4.6. BUN was 52. Creatinine 0.9. AST 9. ALT less than 5. LDH 269. He did undergo a left-sided thoracentesis today by Dr. Sevilla. 1.6 L of yellow fluid removed. Fluid analysis and cytology are pending. Post procedure chest x-ray revealed significant improvement in the left-sided effusion. No evidence of pneumotho rax. He continues tolerating his meals. Remains on bronchodilators. Currently on prednisone 100 mg daily for 5 doses. Objective - Vital Signs Vital signs: Vital Signs Temp 98.3 F 04/06/22 05:48 Pulse 75 04/06/22 08:37 Resp 18 04/06/22 05:48 BP 148/82 04/06/22 05:48 Pulse Ox 94 L 04/06/22 05:48 FiO2 50 03/26/22 08:39 Intake & Output 04/05/22 04/06/22 04/06/22 18:59 06:59 18:59 Intake Total 912 590 Output Total 350 800 Balance 562 -210 Weight 56 kg 56.1 kg Intake: Intake, IV Titration 912 Amount Mvi, Adult No.4 with Vit 912 K 10 ml Trace (Conc-1Ml/ Dose) 1 ml Sodium Acetate 30 meq Potassium Chloride 10 meq Magnesium Sulfate gm 0.5 gm Sodium Phosphate 9 mmol In Amino Acids 5 %/Dextrose 20 % 1,000 ml @ 76 mls/hr IV .BY DURATION [facility] Rx#: [id number] Oral 590 Output: Urine 350 800 Straight 800 Other: Voiding Method Indwelling Catheter Indwelling Catheter Indwelling Catheter # Bowel Movements 1 - Exam The patient is currently on 6 L of O2 nasal cannula and the patient has a BMI of 20. General: Alert, pleasant 61-year-old male patient, non toxic, no distress, appears at stated age Derm: warm, dry, diffuse maculopapular rash with convolesence on the abdomen Head: atraumatic, normocephalic, symmetric Eyes: EOMI, no lid lag, anicteric sclera Mouth: no lip lesion, mucus membranes moist Cardiovascular: S1S2 reg, no murmur, positive posterior tibial pulse bilateral, Lungs: Decreased bs bilateral, no rhonchi, no rales , no accessory muscle use, diminished breath sound left lung base along with dullness to percussion consistent with pleural effusion. Abdominal: soft, nontender to palpation, no guarding, no appreciable organomegaly Ext: no gross muscle atrophy, no edema, no contractures Neuro: CN II-XI grossly intact, no focal neuro deficits Psych: Alert, oriented, appropriate affect - Labs CBC & Chem 7: 04/06/22 06:00 04/06/22 06:00 Labs: Abnormal Lab Results - Last 24 Hours (Table) 04/05/22 04/05/22 04/05/22 Range/Units 14:23 14:23 17:07 WBC 30.6 H (3.8-10.6) k/uL RBC (4.40-5.60) X 10*6/uL Hgb 12.9 L D (13.0-17.5) gm/dL MCV 78.8 L (80.0-100.0) fL MCH 22.5 L (25.0-35.0) pg MCHC 28.6 L (31.0-37.0) g/dL RDW 18.2 H (11.5-15.5) % MPV (9.5-12.2) fL Neutrophils # 27.3 H (1.3-7.7) k/uL Neutrophils # (Manual) (2.00-8.90) X 10*3/uL Eosinophils # (Manual) (0.04-0.35) X 10*3/uL Chloride (96-109) mmol/L Anion Gap (10.00-18.00) mmol/L BUN (9.0-27.0) mg/dL BUN/Creatinine Ratio (12.00-20.00) Ratio POC Glucose (mg/dL) 133 H (70-110) mg/dL AST (14-35) U/L ALT (10-49) U/L Lactate Dehydrogenase 698 H (313-618) U/L Total Protein (6.2-8.2) g/dL Albumin (3.8-4.9) g/dL Globulin (1.6-3.3) g/dL 04/05/22 04/06/22 04/06/22 Range/Units 23:52 06:00 06:00 WBC 22.02 H (3.8-10.6) k/uL RBC 5.70 H (4.40-5.60) X 10*6/uL Hgb 12.8 L (13.0-17.5) gm/dL MCV 76.3 L (80.0-100.0) fL MCH 22.5 L (25.0-35.0) pg MCHC 29.4 L (31.0-37.0) g/dL RDW 20.9 H (11.5-15.5) % MPV 9.3 L (9.5-12.2) fL Neutrophils # (1.3-7.7) k/uL Neutrophils # (Manual) 17.84 H (2.00-8.90) X 10*3/uL Eosinophils # (Manual) 0 L (0.04-0.35) X 10*3/uL Chloride 113 H (96-109) mmol/L Anion Gap 9.30 L (10.00-18.00) mmol/L BUN 52.5 H (9.0-27.0) mg/dL BUN/Creatinine Ratio 58.33 H (12.00-20.00) Ratio POC Glucose (mg/dL) 164 H (70-110) mg/dL AST 9 L (14-35) U/L ALT <5 L (10-49) U/L Lactate Dehydrogenase 269 H (313-618) U/L Total Protein 4.8 L (6.2-8.2) g/dL Albumin 3.4 L (3.8-4.9) g/dL Globulin 1.4 L (1.6-3.3) g/dL Assessment and Plan Assessment: Acute dyspnea/hypoxic respiratory failure, multifactorial. Ultrasound the chest was done on 03/25/2022 and the patient was found to have a large pocket of pleural fluid on the left. Status post left-sided thoracentesis on 04/06/2022 with 1.6 L of fluid removed. Fluid analysis and cytology pending. Chronic lymphocytic leukemia/CLL with history of disease progression with extensive abdominal and mediastinal lymphadenopathy consistent with large diffuse B-cell lymphoma the patient was treated with CHOP chemotherapy on 04/03/2022. Encephalopathy, improving Lupus anticoagulant with underlying abnormal correlation profile on blood work COPD maintained on examination of Advair and Spiriva on outpatient basis Previous history of COVID 19 infection in October 2020 Chronic anemia Coagulopathy, likely secondary to a positive lupus anticoagulant Mild hypercalcemia, recovered Severe protein malnutrition and the patient was taken off the TPN and he is eating and drinking for now. Plan: The patient was seen and evaluated Left-sided thoracentesis performed with 1.6 L of yellow fluid removed Fluid analysis and cytology pending Follow-up chest x-ray shows improvement, no evidence of pneumothorax Continue the current treatment plan for now We'll continue to follow I have personally seen and examined the patient, performed the documentation and the assessment and plan as written. I have personally seen and examined the patient and reviewed the documentation. I performed a joint evaluation with the nurse practitioner in this evaluation was done more than 20 minutes. I fully agree with the documentation above and the plan of care. Procedure was done without any complications. No evidence of any pneumothorax. Clinically improved. We'll continue to follow.
--- NOTE | 2022-04-06 15:05 | P.PN ---
Progress Note - Text Asked to review patient progress. PT reports superrvision for bed mobility, minimal assist for gait 175 ft roller walker. OT reports supervision of feed, upper dress, toilet. Moderate assist for lower dress and minimal assist for bathing and functional mobility/transfers. Did make dramatic improvement and has PT/OT physical assist needs. IPR unable to accept patient today. Will review Saturday a.m.
--- NOTE | 2022-04-06 15:08 | P.PCN ---
Date of Procedure: 04/06/22 Preoperative Diagnosis: Pleural effusion, left-sided Postoperative Diagnosis: Pleural effusion, left-sided Procedure(s) Performed: Thoracentesis, left-sided Anesthesia: local Surgeon: Clari Sevilla Pathology: none sent Condition: stable Disposition: floor Operative Findings: A time out was performed and the chest x-ray was reviewed, the appropriate side was confirmed and marked. My hands were washed immediately prior to the procedure. I wore a surgical cap, mask with protective eyewear, sterile gown and sterile gloves throughout the procedure. The patient was prepped and draped in a sterile manner using chlorhexidine scrub after the appropriate level was percussed and confirmed by ultrasound. 1% lidocaine was used to anesthesize the skin, subcutaneous tissue, superior aspect of the rib periosteum and parietal pleura. A finder needle was then introduced over the superior aspect of the rib to locate the pleural fluid; 2colored fluid was aspirated at a depth of approximately 2 cm. A 10-blade scalpel was used to parker the skin at the insertion site. The [id number]-Piptapyc needle was then introduced through the skin incision into the pleural space using negative aspiration pressure and the red colometric indicator to confirm appropriate positioning of the needle. The thoracentesis catheter was then threaded without difficulty.1800 ml of turbid colored fluid was removed without difficulty. The catheter was then removed. No immediate complications were noted during the procedure. A post-procedure chest x-ray is pending at the time of this note. The fluid will be sent for studies. Estimated blood loss is 0cc
[2022-04-06] MEDS: SALT AND SODA MOUTHWASH 1,000 ML PO SCH ×3 (15:25→18:05)
--- NOTE | 2022-04-06 15:27 | P.PN ---
Subjective Progress Note Date: 04/06/22 Hospital course: Patient is a very pleasant 61-year-old male with a past medical history of CLL on [place], chronic kidney stage III, and COPD. He presented to the emergency department on 03/18/22 with a chief complaint of left flank pain. Patient reported this pain began approximately a few weeks ago and significantly worsened over the past few days. He reported the pain still left flank and was accompanied by nausea. He underwent full evaluation in the emergency department. He was found to have significant leukocytosis with WBC count of 18.9 and an acute kidney injury with BUN 26, creatinine 1.72, and GFR 41. Urinalysis was negative for blood, protein, or infection. Covid PCR negative. CT abdomen and pelvis revealed a left perinephritic/retroperitoneal soft tissue suspicious for mass with overall worsening of previously known lymphadenopathy throughout the abdomen and ascending into the mediastinum with persistent splenomegaly consistent with his prior history of lymphoma along with increase and bilateral pleural effusions with left greater than right. Patient was admitted under our services with consultation to oncology, vascular surgery, nephrology, and urology. Abdominal ultrasound was completed revealing a left perinephritic complex vascular mass, recommending further evaluation with MRI. MRI with and without contrast revealed large posterior perinephrotic mass with massive retroperitoneal adenopathy and massive splenomegaly. Oncology consulted interventional radiology to perform biopsy of renal mass. INR remains elevated, unable to complete biopsy until INR has improved. Patient given vitamin K. On 03/23/22, patient was found to be hypoxic and had increasing oxygen needs. Repeat x-ray revealed increasing left lower lobe effusion. Pulmonology re-consulted at this time for evaluation. On 03/25/22 ultrasound of chest was completed which revealed an 11.8 cm pleural effusion pocket. Patient will likely need to u ndergo thoracentesis, however due to persistently elevated INR it was deemed unsafe to perform at this time. Patient currently on palliative care and underwent renal mass biopsy on 03/27/22. He was started on high-dose steroids, pending biopsy results. 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 Patient received fifth dose of steroids and CHOP chemotherapy treatment 04/03/22. Patient has made complete turnaround after receiving CHOP chemotherapy. Pulmonary reconsulted and completed thoracentesis for drainage of pleural effusion pocket on 04/06/22 removing 1800 mL of turbid colored fluid. Patient is working with PT/OT and current target discharge plan is for patient to be discharged home with nephew and his along with home care. Physical exam: Pt seen and fully evaluated at bedside this morning, patient sitting up in bed and is alert and oriented to person, time, place, and situation. He appears to be doing well. Patient states he feels great and looking forward to going home. He is preparing to undergo thoracentesis with pulmonology. Secondary to patient's significant improvement he is being reevaluated by inpatient rehab to determine if he qualifies. Vital signs reviewed and stable. General: Nontoxic, no distress and appears stated age. Thin, malnourished. Derm: Skin warm and dry, normal coloration for ethnicity. Head: Atraumatic, normocephalic and symmetric. Eyes: EOMs intact, no lid lag, and anicteric sclera Mouth: no lip lesions, mucus membranes moist Cardiovascular: regular rate and rhythm with normal S1S2, no murmur, positive posterior tibial pulses bilaterally, and cap refill < 2 seconds. Lungs: Respirations even, regular, and unlabored on 6 L O2 via nasal cannula. Lungs diminished with absent breath sounds in left mid and lower lung. No rhonchi, rales, wheezes or crackles present, and no accessory muscle usage. Abdominal: soft, Bowel sounds 4 quadrants. Ext: No gross muscle atrophy, no edema, no contractures. Patient moving all extremities without any difficulties. Patient sitting up in bed and following commands without any noted problems at this time. Neuro/Psych: Alert and oriented, GCS 14. No neurological deficits noted Assessment and Plan of Care: CLL Left perinephric complex mass status post biopsy on 03/27/22 Massive splenomegaly -MRI with and without contrast revealed large posterior perinephrotic mass with massive retroperitoneal adenopathy and massive splenomegaly. 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 Acute encephalopathy, improving -Likely multifactorial secondary to delirium resulting from medication administration as patient on high-dose steroids as well as narcotics -Neuro checks -Fall precautions -Sitter to remain at bedside to maintain patient's safety. -Safe and supportive care with redirection/reorientation as needed. Leukocytosis -Believed to be reactive secondary to high-dose steroid administration. -We will continue to monitor closely for any signs of infection and with repeat a.m. labs. KEERTHI on CKD, renal function stable Hypercalcemia secondary to underlying lymphoma, improving -Nephrology following, appreciate recommendations -Improved after IV fluid hydration and administration of zoledronic acid. -Patient has [place] catheter in place secondary to urinary retention. Acute respiratory failure with hypoxia secondary to large left pleural effusion -Ultrasound chest completed revealing an 11.8 cm pleural effusion pocket -Pulmonology was following, and plans for thoracentesis tomorrow morning. -Continue with oxygen supplementation to maintain SpO2 equal to or greater than 90%. Severe protein malnourishment -TPN discontinued as patient is now eating and drinking without any difficulties. Patient to receive supplemental protein drinks 3 times daily between meals. Chronic coagulopathy Chronic anemia of chronic disease Lupus anticogulant -Secondary to CLL, hematology/oncology following. Hypomagnesemia, replaced COPD without acute exacerbation -Continue Symbicort 2 puffs twice daily along with PRN nebulizer treatments for shortness of breath and/or wheezing. CODE STATUS: Full code DVT prophylaxis: SCDs Discussed with: Patient, patient's cousin RN and hematology Anticipated discharge date: Likely sometime between 04/07/22 and 04/08/22 pending outcome of thoracentesis being completed on 04/06/22.. Anticipated discharge place: Home with nephew and his with home care A total of 39 minutes was spent on the care of this complex patient more than 50% of the time was spent in counseling and care coordination. Objective - Vital Signs Vital signs: Vital Signs Temp 98.3 F 04/06/22 05:48 Pulse 75 04/06/22 08:37 Resp 18 04/06/22 05:48 BP 148/82 04/06/22 05:48 Pulse Ox 94 L 04/06/22 05:48 FiO2 50 03/26/22 08:39 Intake & Output 04/05/22 04/06/22 04/06/22 18:59 06:59 18:59 Intake Total 912 590 Output Total 350 800 Balance 562 -210 Weight 56 kg 56.1 kg Intake: Intake, IV Titration 912 Amount Mvi, Adult No.4 with Vit 912 K 10 ml Trace (Conc-1Ml/ Dose) 1 ml Sodium Acetate 30 meq Potassium Chloride 10 meq Magnesium Sulfate gm 0.5 gm Sodium Phosphate 9 mmol In Amino Acids 5 %/Dextrose 20 % 1,000 ml @ 76 mls/hr IV .BY DURATION [facility] Rx#: [id number] Oral 590 Output: Urine 350 800 Straight 800 Other: Voiding Method Indwelling Catheter Indwelling Catheter Indwelling Catheter # Bowel Movements 1 - Labs CBC & Chem 7: 04/06/22 06:00 04/06/22 06:00 Labs: Abnormal Lab Results - Last 24 Hours (Table) 04/05/22 04/05/22 04/05/22 Range/Units 11:00 14:23 14:23 WBC 30.6 H (3.8-10.6) k/uL RBC (4.40-5.60) X 10*6/uL Hgb 12.9 L D (13.0-17.5) gm/dL MCV 78.8 L (80.0-100.0) fL MCH 22.5 L (25.0-35.0) pg MCHC 28.6 L (31.0-37.0) g/dL RDW 18.2 H (11.5-15.5) % MPV (9.5-12.2) fL Neutrophils # 27.3 H (1.3-7.7) k/uL Neutrophils # (Manual) (2.00-8.90) X 10*3/uL Eosinophils # (Manual) (0.04-0.35) X 10*3/uL Chloride (96-109) mmol/L Anion Gap (10.00-18.00) mmol/L BUN (9.0-27.0) mg/dL BUN/Creatinine Ratio (12.00-20.00) Ratio POC Glucose (mg/dL) 233 H (70-110) mg/dL AST (14-35) U/L ALT (10-49) U/L Lactate Dehydrogenase 698 H (313-618) U/L Total Protein (6.2-8.2) g/dL Albumin (3.8-4.9) g/dL Globulin (1.6-3.3) g/dL 04/05/22 04/05/22 04/06/22 Range/Units 17:07 23:52 06:00 WBC 22.02 H (3.8-10.6) k/uL RBC 5.70 H (4.40-5.60) X 10*6/uL Hgb 12.8 L (13.0-17.5) gm/dL MCV 76.3 L (80.0-100.0) fL MCH 22.5 L (25.0-35.0) pg MCHC 29.4 L (31.0-37.0) g/dL RDW 20.9 H (11.5-15.5) % MPV 9.3 L (9.5-12.2) fL Neutrophils # (1.3-7.7) k/uL Neutrophils # (Manual) 17.84 H (2.00-8.90) X 10*3/uL Eosinophils # (Manual) 0 L (0.04-0.35) X 10*3/uL Chloride (96-109) mmol/L Anion Gap (10.00-18.00) mmol/L BUN (9.0-27.0) mg/dL BUN/Creatinine Ratio (12.00-20.00) Ratio POC Glucose (mg/dL) 133 H 164 H (70-110) mg/dL AST (14-35) U/L ALT (10-49) U/L Lactate Dehydrogenase (313-618) U/L Total Protein (6.2-8.2) g/dL Albumin (3.8-4.9) g/dL Globulin (1.6-3.3) g/dL 04/06/22 Range/Units 06:00 WBC (3.8-10.6) k/uL RBC (4.40-5.60) X 10*6/uL Hgb (13.0-17.5) gm/dL MCV (80.0-100.0) fL MCH (25.0-35.0) pg MCHC (31.0-37.0) g/dL RDW (11.5-15.5) % MPV (9.5-12.2) fL Neutrophils # (1.3-7.7) k/uL Neutrophils # (Manual) (2.00-8.90) X 10*3/uL Eosinophils # (Manual) (0.04-0.35) X 10*3/uL Chloride 113 H (96-109) mmol/L Anion Gap 9.30 L (10.00-18.00) mmol/L BUN 52.5 H (9.0-27.0) mg/dL BUN/Creatinine Ratio 58.33 H (12.00-20.00) Ratio POC Glucose (mg/dL) (70-110) mg/dL AST 9 L (14-35) U/L ALT <5 L (10-49) U/L Lactate Dehydrogenase 269 H (313-618) U/L Total Protein 4.8 L (6.2-8.2) g/dL Albumin 3.4 L (3.8-4.9) g/dL Globulin 1.4 L (1.6-3.3) g/dL
[2022-04-06 17:39] LABS: Glucose,Whole Blood 137 mg/dL (70-110)
--- NOTE | 2022-04-06 20:12 | P.PN ---
Subjective Progress Note Date: 04/06/22 Principal diagnosis: Concern of Renal Mass Renal function has improved, CBC is stable. He is 3 days post chemotherapy. Objective - Vital Signs Vital signs: Vital Signs Temp 98.3 F 04/06/22 05:48 Pulse 75 04/06/22 08:37 Resp 18 04/06/22 05:48 BP 148/82 04/06/22 05:48 Pulse Ox 94 L 04/06/22 05:48 FiO2 50 03/26/22 08:39 Intake & Output 04/05/22 04/06/22 04/06/22 18:59 06:59 18:59 Intake Total 912 590 Output Total 350 800 Balance 562 -210 Weight 56 kg 56.1 kg Intake: Intake, IV Titration 912 Amount Mvi, Adult No.4 with Vit 912 K 10 ml Trace (Conc-1Ml/ Dose) 1 ml Sodium Acetate 30 meq Potassium Chloride 10 meq Magnesium Sulfate gm 0.5 gm Sodium Phosphate 9 mmol In Amino Acids 5 %/Dextrose 20 % 1,000 ml @ 76 mls/hr IV .BY DURATION [facility] Rx#: [id number] Oral 590 Output: Urine 350 800 Straight 800 Other: Voiding Method Indwelling Catheter Indwelling Catheter Indwelling Catheter # Bowel Movements 1 - Exam Gen.: NAD HEENT: Mucosa moist, no conjunctival pallor. Lymph:Bilateral small cervical lymphadenopathy Lungs: No respiratory distress. Heart: Tachy Abdomen: Soft, nontender. Awake, intermittent confusion ALert - Labs CBC & Chem 7: 04/06/22 06:00 04/06/22 06:00 Labs: Abnormal Lab Results - Last 24 Hours (Table) 04/05/22 04/05/22 04/05/22 Range/Units 11:00 14:23 14:23 WBC 30.6 H (3.8-10.6) k/uL RBC (4.40-5.60) X 10*6/uL Hgb 12.9 L D (13.0-17.5) gm/dL MCV 78.8 L (80.0-100.0) fL MCH 22.5 L (25.0-35.0) pg MCHC 28.6 L (31.0-37.0) g/dL RDW 18.2 H (11.5-15.5) % MPV (9.5-12.2) fL Neutrophils # 27.3 H (1.3-7.7) k/uL Neutrophils # (Manual) (2.00-8.90) X 10*3/uL Eosinophils # (Manual) (0.04-0.35) X 10*3/uL Chloride (96-109) mmol/L Anion Gap (10.00-18.00) mmol/L BUN (9.0-27.0) mg/dL BUN/Creatinine Ratio (12.00-20.00) Ratio POC Glucose (mg/dL) 233 H (70-110) mg/dL AST (14-35) U/L ALT (10-49) U/L Lactate Dehydrogenase 698 H (313-618) U/L Total Protein (6.2-8.2) g/dL Albumin (3.8-4.9) g/dL Globulin (1.6-3.3) g/dL 04/05/22 04/05/22 04/06/22 Range/Units 17:07 23:52 06:00 WBC 22.02 H (3.8-10.6) k/uL RBC 5.70 H (4.40-5.60) X 10*6/uL Hgb 12.8 L (13.0-17.5) gm/dL MCV 76.3 L (80.0-100.0) fL MCH 22.5 L (25.0-35.0) pg MCHC 29.4 L (31.0-37.0) g/dL RDW 20.9 H (11.5-15.5) % MPV 9.3 L (9.5-12.2) fL Neutrophils # (1.3-7.7) k/uL Neutrophils # (Manual) 17.84 H (2.00-8.90) X 10*3/uL Eosinophils # (Manual) 0 L (0.04-0.35) X 10*3/uL Chloride (96-109) mmol/L Anion Gap (10.00-18.00) mmol/L BUN (9.0-27.0) mg/dL BUN/Creatinine Ratio (12.00-20.00) Ratio POC Glucose (mg/dL) 133 H 164 H (70-110) mg/dL AST (14-35) U/L ALT (10-49) U/L Lactate Dehydrogenase (313-618) U/L Total Protein (6.2-8.2) g/dL Albumin (3.8-4.9) g/dL Globulin (1.6-3.3) g/dL 04/06/22 Range/Units 06:00 WBC (3.8-10.6) k/uL RBC (4.40-5.60) X 10*6/uL Hgb (13.0-17.5) gm/dL MCV (80.0-100.0) fL MCH (25.0-35.0) pg MCHC (31.0-37.0) g/dL RDW (11.5-15.5) % MPV (9.5-12.2) fL Neutrophils # (1.3-7.7) k/uL Neutrophils # (Manual) (2.00-8.90) X 10*3/uL Eosinophils # (Manual) (0.04-0.35) X 10*3/uL Chloride 113 H (96-109) mmol/L Anion Gap 9.30 L (10.00-18.00) mmol/L BUN 52.5 H (9.0-27.0) mg/dL BUN/Creatinine Ratio 58.33 H (12.00-20.00) Ratio POC Glucose (mg/dL) (70-110) mg/dL AST 9 L (14-35) U/L ALT <5 L (10-49) U/L Lactate Dehydrogenase 269 H (313-618) U/L Total Protein 4.8 L (6.2-8.2) g/dL Albumin 3.4 L (3.8-4.9) g/dL Globulin 1.4 L (1.6-3.3) g/dL Assessment and Plan Plan: CT scan - abdomen: report reviewed US - abdomen: report reviewed Assessment and Plan (1) Left kidney mass Narrative/Plan: Biopsy is consistent with high grade lymphoma transformation - Status Post Day One CHOP chemo on 04/03/22 - Status Post GCSF - Daily CBC w/diff, CMP, MAg, Phos, Uric Acid, and LDH - Monitor closely for TLS - No transfusions needed today - LDH and TLS are improving overall Current Visit: Yes Status: Acute Code(s): N28.89 - OTHER SPECIFIED DISORDERS OF KIDNEY AND URETER SNOMED Code(s): 530862363 (2) Neoplasm related pain Narrative/Plan: - Continue regimen and Bowel protocol Current Visit: Yes Status: Acute Code(s): G89.3 - NEOPLASM RELATED PAIN (ACUTE) (CHRONIC) SNOMED Code(s): 21445294153827 Dr. Majano: I have completed the full history and physical and developed the above impression and plan, agree with dictation dictated as a scribe
[2022-04-06] MEDS: PARoxetine 20 MG TAB PO SCH (22:00)
[2022-04-07 01:06] LABS: Glucose,Whole Blood 105 mg/dL (70-110)
[2022-04-07] MEDS: DRY MOUTH SPRAY 44.3 SPRAY/44.3 ML SPRAY MUCOUS MEM SCH ×6 (01:18→20:51)
[2022-04-07 02:14] LABS: Appearance,BF Clear
[2022-04-07 02:38] LABS: Glucose, BF Source Pleural Fluid; Glucose, Body Fluid 125 mg/dL; T. Protein, Body Fluid Source Pleural Fluid; Total Protein, Body Fluid 2620 mg/dL
[2022-04-07 05:58] LABS: Glucose,Whole Blood 79 mg/dL (70-110)
[2022-04-07 06:17] LABS: Anisocytosis Slight; Basophils # (A) 0.1 k/uL (0-0.2); Basophils % (A) 1 %; Eosinophils % (A) 0 %; HCT 44.3 % (39.0-53.0); HGB 12.9 gm/dL (13.0-17.5); Hypochromasia Marked; Lymphocytes # (A) 2.1 k/uL (1.0-4.8); Lymphocytes % (A) 15 %; MCH 22.9 pg (25.0-35.0); MCHC 29.1 g/dL (31.0-37.0); MCV 78.7 fL (80.0-100.0); Mean Platelet Volume 8.6; Microcytosis Slight; Monocytes # (A) 0.1 k/uL (0-1.0); Monocytes % (A) 1 %; Neutrophils # (A) 11.3 k/uL (1.3-7.7); Neutrophils % (A) 83 %; Platelet Count 272 k/uL (150-450); RBC 5.62 m/uL (4.30-5.90); RDW 18.2 % (11.5-15.5); WBC 13.7 k/uL (3.8-10.6)
[2022-04-07 06:49] LABS: ALT 14 U/L (4-49); AST 16 U/L (17-59); African American GFR (CKD) >90 (>60 ml/min/1.73 sqM); Albumin 2.9 g/dL (3.5-5.0); Albumin/Globulin Ratio 1.5; Alkaline Phosphatase 55 U/L (38-126); Anion Gap 4 mmol/L; Blood Urea Nitrogen 44 mg/dL (9-20); Calcium 9.2 mg/dL (8.4-10.2); Carbon Dioxide 21 mmol/L (22-30); Chloride 113 mmol/L (98-107); Globulin 1.9 g/dL; Glucose 88 mg/dL (74-99); LDH 487 U/L (313-618); Magnesium 1.9 mg/dL (1.6-2.3); Non-African American GFR(CKD) >90 (>60 ml/min/1.73 sqM); Phosphorus 3.2 mg/dL (2.5-4.5); Potassium 4.6 mmol/L (3.5-5.1); Sodium 138 mmol/L (137-145); Total Bilirubin 0.8 mg/dL (0.2-1.3); Total Protein 4.8 g/dL (6.3-8.2); Uric Acid 6.9 mg/dL (3.5-8.5)
[2022-04-07] MEDS: IPRATROPIUM 0.5 MG/2.5 ML NEBU INHALATION SCH ×4 (07:28→19:33)
[2022-04-07] MEDS: SYMBICORT 80-4.5 MCG INHALER INHALATION SCH ×2 (07:28→19:33)
[2022-04-07] MEDS: polyethylene glycoL 3350 17 GM POWD.PACK PO SCH (08:45)
[2022-04-07] MEDS: bisacodyL 5 MG TABLET.DR PO SCH (08:46)
[2022-04-07] MEDS: HYDROcodone/APAP 7.5-325MG 1 EACH TAB PO SCH ×2 (08:47→16:50)
[2022-04-07] MEDS: SODIUM BICARBONATE TAB 650 MG TAB PO SCH ×2 (08:47→20:50)
[2022-04-07] MEDS: MEGESTROL 400 MG/10 ML CUP PO SCH (08:47)
[2022-04-07] MEDS: predniSONE 50 MG TAB PO SCH (08:48)
[2022-04-07] MEDS: QUEtiapine 50 MG TAB PO SCH ×2 (08:48→20:49)
[2022-04-07] MEDS: GABAPENTIN 100 MG CAP PO SCH ×2 (08:48→20:50)
[2022-04-07] MEDS: PANTOPRAZOLE 40 MG/10 ML VIAL IVP SCH ×2 (08:48→20:50)
[2022-04-07] MEDS: SALT AND SODA MOUTHWASH 1,000 ML PO SCH ×3 (08:48→16:55)
[2022-04-07] MEDS: SENNOSIDES-DOCUSATE SODIUM 1 EACH TAB PO SCH ×2 (08:49→20:49)
[2022-04-07] MEDS: MAG HYDROX/AL HYDROX/SIMETH 30 ML, LIDOCAINE VISCOUS 2% 30 ML, diphenhydrAMINE ELIXIR 7... PO SCH ×15 (08:51→20:48)
[2022-04-07 11:36] LABS: Glucose,Whole Blood 89 mg/dL (70-110)
[2022-04-07] MEDS: DEXAMETHASONE SOD PHOS (MDV) 100 MG/10 ML VIAL IVP SCH (11:56)
--- NOTE | 2022-04-07 12:05 | P.PN ---
Subjective Progress Note Date: 04/07/22 This is a 61-year-old male patient, known history of COPD, coming in with a left flank pain has been going on for few weeks with progressive worsening over the past few days. . He is known to have COPD maintained on a combination of Advair and Spiriva on outpatient basis. He also carries a diagnosis of CLL that was followed up by Dr. Faulkner. He is known to have extensive lymphadenopathy related to his CLL We were asked to reevaluate this patient regarding the pleural effusion. This patient is currently postop systemic chemotherapy for an underlying diffuse large B-cell lymphoma. The patient received systemic chemotherapy and the patient completed CHOP regimen. The patient is feeling better. Less lethargic and more alert and awake and communicating. The same time, the patient is expressing some shortness of breath and his chest x-ray has revealed a large left-sided pleural effusion. I was forced to perform a thoracentesis on this patient for symptomatic relief. Noted the patient's PT/INR is chronically elevated related to previous hematologic abnormalities related to lupus antic oagulant. He is known to have COPD. On his blood work today, the patient is a white cell count of 30.6 and hemoglobin 12.9 and platelet count of 22. Electrolytes are essentially within normal limits. The patient is seen today 04/06/2022 in follow-up on the regular medical floor. He is currently sitting up in bed. Awake and alert in no acute distress. He denies any worsening shortness of breath, cough or congestion. He is currently maintaining good O2 saturations in the 90s on 6 L high flow nasal cannula. He's been afebrile. Hemodynamically stable. The cultures revealed no growth. White count 20.0. Hemoglobin 12.8. Platelets 313. Sodium 134. Potassium 4.6. BUN was 52. Creatinine 0.9. AST 9. ALT less than 5. LDH 269. He did undergo a left-sided thoracentesis today by Dr. Sevilla. 1.6 L of yellow fluid removed. Fluid analysis and cytology are pending. Post procedure chest x-ray revealed significant improvement in the left-sided effusion. No evidence of pneumotho rax. He continues tolerating his meals. Remains on bronchodilators. Currently on prednisone 100 mg daily for 5 doses. 04/04/2022, the patient is feeding well. Thoracentesis was done. The pleural fluid on the left was drained and the fluid is a exudate based on the protein criteria and the serum protein was at 4.8 and the fluid protein was at 2.5. Also, the fluid cytology still pending for now. Fluid LDH is still pending. The patient has no specific complaints. Blood work from today shows a white count of 13.7 with hemoglobin 12.9. Sodium is at 138 with a BUN of 44 and creatinine 0.8. Objective - Vital Signs Vital signs: Vital Signs Temp 98.3 F 04/07/22 11:23 Pulse 88 04/07/22 11:25 Resp 16 04/07/22 11:23 BP 110/58 04/07/22 11:23 Pulse Ox 95 04/07/22 11:23 FiO2 50 03/26/22 08:39 Intake & Output 04/06/22 04/07/22 04/07/22 18:59 06:59 18:59 Intake Total 500 Output Total 600 1000 500 Balance -600 -500 -500 Weight 56.1 kg 53 kg Intake: Oral 500 Output: Urine 600 1000 500 Other: Voiding Method Indwelling Catheter Indwelling Catheter Indwelling Catheter # Bowel Movements 1 - Exam The patient is currently on 6 L of O2 nasal cannula and the patient has a BMI of 20. General: Alert, pleasant 61-year-old male patient, non toxic, no distress, appears at stated age Derm: warm, dry, diffuse maculopapular rash with convolesence on the abdomen Head: atraumatic, normocephalic, symmetric Eyes: EOMI, no lid lag, anicteric sclera Mouth: no lip lesion, mucus membranes moist Cardiovascular: S1S2 reg, no murmur, positive posterior tibial pulse bilateral, Lungs: Decreased bs bilateral, no rhonchi, no rales , no accessory muscle use, improvement in aeration of the left lung base Abdominal: soft, nontender to palpation, no guarding, no appreciable organomegaly Ext: no gross muscle atrophy, no edema, no contractures Neuro: CN II-XI grossly intact, no focal neuro deficits Psych: Alert, oriented, appropriate affect - Labs CBC & Chem 7: 04/07/22 05:58 04/07/22 05:58 Labs: Abnormal Lab Results - Last 24 Hours (Table) 04/06/22 04/07/22 04/07/22 Range/Units 17:36 05:58 05:58 WBC 13.7 H (3.8-10.6) k/uL Hgb 12.9 L (13.0-17.5) gm/dL MCV 78.7 L (80.0-100.0) fL MCH 22.9 L (25.0-35.0) pg MCHC 29.1 L (31.0-37.0) g/dL RDW 18.2 H (11.5-15.5) % Neutrophils # 11.3 H (1.3-7.7) k/uL Chloride 113 H (98-107) mmol/L Carbon Dioxide 21 L (22-30) mmol/L BUN 44 H (9-20) mg/dL POC Glucose (mg/dL) 137 H (70-110) mg/dL AST 16 L (17-59) U/L Total Protein 4.8 L (6.3-8.2) g/dL Albumin 2.9 L (3.5-5.0) g/dL Microbiology - Last 24 Hours (Table) 04/06/22 15:42 Gram Stain - Preliminary Pleural Fluid Body Fluid Culture - Preliminary 04/06/22 15:42 Acid Fast Bacilli Culture - Preliminary Pleural Fluid Assessment and Plan Plan: Acute dyspnea/hypoxic respiratory failure, multifactorial. The patient is feeling better post thoracentesis. The patient large left-sided pleural effusion that was drained Left-sided exudative pleural effusion, post drainage and a total of 1.8 L of fluid was removed without any complications. Awaiting fluid cytology Chronic lymphocytic leukemia/CLL with history of disease progression with extensive abdominal and mediastinal lymphadenopathy consistent with large diffuse B-cell lymphoma the patient was treated with CHOP chemotherapy on 04/03/2022. Encephalopathy, improving Lupus anticoagulant with underlying abnormal correlation profile on blood work COPD maintained on examination of Advair and Spiriva on outpatient basis Previous history of COVID 19 infection in October 2020 Chronic anemia Coagulopathy, likely secondary to a positive lupus anticoagulant mild hypercalcemia, recovered Severe protein malnutrition and the patient was taken off the TPN and he is eating and drinking for now. Plan Clinically stable Thoracentesis was done Awaiting pleural fluid cytology We'll continue to follow
--- NOTE | 2022-04-07 14:06 | P.PN ---
Subjective Progress Note Date: 04/07/22 No new complaints today. Pleural fluid studies pending. Gen: awake, alert HEENT: normocephalic, atraumatic, good hearing acuity, moist mucous membranes Resp: good air exchange, breathing comfortably with no accessory muscle use CVS: good distal perfusion x 4, GI: soft, NTTP, ND : no SPT, no CVAT, goel catheter not present MSK: no pitting edema, no clubbing Neuro: non-focal, moving all extremities Psych: cooperative, euthymic mood Assessment and Plan of Care: Left flank pain Left perinephric complex mass -Computed tomography scan of the abdomen without contrast showed complex mass in the left perinephric area. -Abdominal ultrasound confirmed left. Nephritic complex vascular mass -MRI abdomen with and with contrast pending completion, patient to be medicated with Ativan secondary to his reports of severe claustrophobia. -Pain control with IV Dilaudid -Hematology/oncology following, appreciate recommendations -Nephrology following, appreciate recommendations -Urology following in agreement with recommendation of MRI and reports further recommendations based on MRI findings. Chronic coagulopathy Chronic anemia of chronic disease Lupus anticogulant -Likely secondary to CLL, hematology/oncology following Chronic lymphocytic leukemia Splenomegaly with lymphadenopathy throughout abdomen and ascending into mediastinum -Patient on Calquence -Hematology/oncology following, appreciate recommendations. Acute kidney injury on stage III chronic kidney disease , improving -Could be secondary prerenal azotemia secondary to hypercalcemia and dehydration in the setting of NSAIDs for pain control use or prerenal as a ISA -Improving with IV fluid hydration -Nephrology consulted started patient on bicarb -Continue holding Lasix -Avoid nephrotoxic agents Mild Hypercalcemia -Improved with IV fluid hydration Bilateral pleural effusions, no evidence of pneumonia COPD without acute exacerbation -Supplemental oxygen to be provided as needed to maintain SpO2 equal to or greater than 92%. -Continue Symbicort 2 puffs twice daily along with PRN nebulizer treatments for shortness of breath and/or wheezing. CODE STATUS: Full code DVT prophylaxis: SCDs Anticipated discharge date: Clinical course to determine Anticipated discharge place: Home Objective - Vital Signs Vital signs: Vital Signs Temp 98.3 F 04/07/22 11:23 Pulse 88 04/07/22 11:25 Resp 16 04/07/22 11:23 BP 110/58 04/07/22 11:23 Pulse Ox 95 04/07/22 11:23 FiO2 50 03/26/22 08:39 Intake & Output 04/06/22 04/07/22 04/07/22 18:59 06:59 18:59 Intake Total 500 Output Total 600 1000 500 Balance -600 -500 -500 Weight 56.1 kg 53 kg Intake: Oral 500 Output: Urine 600 1000 500 Other: Voiding Method Indwelling Catheter Indwelling Catheter Indwelling Catheter # Bowel Movements 1 - Labs CBC & Chem 7: 04/07/22 05:58 04/07/22 05:58 Labs: Abnormal Lab Results - Last 24 Hours (Table) 04/06/22 04/07/22 04/07/22 Range/Units 17:36 05:58 05:58 WBC 13.7 H (3.8-10.6) k/uL Hgb 12.9 L (13.0-17.5) gm/dL MCV 78.7 L (80.0-100.0) fL MCH 22.9 L (25.0-35.0) pg MCHC 29.1 L (31.0-37.0) g/dL RDW 18.2 H (11.5-15.5) % Neutrophils # 11.3 H (1.3-7.7) k/uL Chloride 113 H (98-107) mmol/L Carbon Dioxide 21 L (22-30) mmol/L BUN 44 H (9-20) mg/dL POC Glucose (mg/dL) 137 H (70-110) mg/dL AST 16 L (17-59) U/L Total Protein 4.8 L (6.3-8.2) g/dL Albumin 2.9 L (3.5-5.0) g/dL Microbiology - Last 24 Hours (Table) 04/06/22 15:42 Gram Stain - Preliminary Pleural Fluid Body Fluid Culture - Preliminary 04/06/22 15:42 Acid Fast Bacilli Culture - Preliminary Pleural Fluid
[2022-04-07 17:16] LABS: Glucose,Whole Blood 158 mg/dL (70-110)
[2022-04-07] MEDS: PARoxetine 20 MG TAB PO SCH (20:50)
[2022-04-07] MEDS: ONDANSETRON 4 MG/2 ML VIAL IVP PRN (22:52)
[2022-04-08] MEDS: DRY MOUTH SPRAY 44.3 SPRAY/44.3 ML SPRAY MUCOUS MEM SCH ×7 (00:57→23:40)
[2022-04-08] MEDS: HYDROcodone/APAP 7.5-325MG 1 EACH TAB PO SCH ×4 (00:58→23:40)
[2022-04-08] MEDS: ACETAMINOPHEN TAB 325 MG TAB PO PRN (01:53)
[2022-04-08] MEDS: ONDANSETRON 4 MG/2 ML VIAL IVP PRN (04:57)
[2022-04-08] MEDS: IPRATROPIUM 0.5 MG/2.5 ML NEBU INHALATION SCH ×4 (08:13→19:15)
[2022-04-08] MEDS: SYMBICORT 80-4.5 MCG INHALER INHALATION SCH ×2 (08:13→19:15)
--- NOTE | 2022-04-08 08:49 | P.PN ---
Subjective Progress Note Date: 04/08/22 No new complaints today. Pleural fluid studies pending. Pt is tolerating diet, no longer on TPN. Discharge planning in progress. Gen: awake, alert HEENT: normocephalic, atraumatic, good hearing acuity, moist mucous membranes Resp: good air exchange, breathing comfortably with no accessory muscle use CVS: good distal perfusion x 4, GI: soft, NTTP, ND : no SPT, no CVAT, goel catheter not present MSK: no pitting edema, no clubbing Neuro: non-focal, moving all extremities Psych: cooperative, euthymic mood Assessment and Plan of Care: Left flank pain Left perinephric complex mass -Computed tomography scan of the abdomen without contrast showed complex mass in the left perinephric area. -Abdominal ultrasound confirmed left. Nephritic complex vascular mass -MRI abdomen with and with contrast pending completion, patient to be medicated with Ativan secondary to his reports of severe claustrophobia. -Pain control with IV Dilaudid -Hematology/oncology following, appreciate recommendations -Nephrology following, appreciate recommendations -Urology following in agreement with recommendation of MRI and reports further recommendations based on MRI findings. Chronic coagulopathy Chronic anemia of chronic disease Lupus anticogulant -Likely secondary to CLL, hematology/oncology following Chronic lymphocytic leukemia Splenomegaly with lymphadenopathy throughout abdomen and ascending into mediastinum -Patient on Calquence -Hematology/oncology following, appreciate recommendations. Acute kidney injury on stage III chronic kidney disease , improving -Could be secondary prerenal azotemia secondary to hypercalcemia and dehydration in the setting of NSAIDs for pain control use or prerenal as a ISA -Improving with IV fluid hydration -Nephrology consulted started patient on bicarb -Continue holding Lasix -Avoid nephrotoxic agents Mild Hypercalcemia -Improved with IV fluid hydration Bilateral pleural effusions, no evidence of pneumonia COPD without acute exacerbation -Supplemental oxygen to be provided as needed to maintain SpO2 equal to or greater than 92%. -Continue Symbicort 2 puffs twice daily along with PRN nebulizer treatments for shortness of breath and/or wheezing. CODE STATUS: Full code DVT prophylaxis: SCDs Anticipated discharge date: Clinical course to determine Anticipated discharge place: Home Objective - Vital Signs Vital signs: Vital Signs Temp 97.8 F 04/08/22 05:00 Pulse 72 04/08/22 08:25 Resp 20 04/08/22 05:00 BP 152/72 07/24/22 05:00 Pulse Ox 100 04/08/22 05:00 FiO2 50 03/26/22 08:39 Intake & Output 04/07/22 04/08/22 04/08/22 18:59 06:59 18:59 Intake Total 350 Output Total 1300 1000 Balance -1300 -650 Weight 54 kg Intake: Oral 350 Output: Urine 1300 1000 Stool 0 Other: Voiding Method Indwelling Catheter Indwelling Catheter # Bowel Movements 1 - Labs CBC & Chem 7: 04/07/22 05:58 04/07/22 05:58 Labs: Abnormal Lab Results - Last 24 Hours (Table) 04/07/22 Range/Units 17:02 POC Glucose (mg/dL) 158 H (70-110) mg/dL Microbiology - Last 24 Hours (Table) 04/06/22 15:42 Acid Fast Bacilli Smear - Final Pleural Fluid Acid Fast Bacilli Culture - Preliminary 04/06/22 15:42 Gram Stain - Preliminary Pleural Fluid Body Fluid Culture - Preliminary
[2022-04-08] MEDS: GABAPENTIN 100 MG CAP PO SCH ×2 (09:19→21:16)
[2022-04-08] MEDS: MEGESTROL 400 MG/10 ML CUP PO SCH (09:19)
[2022-04-08] MEDS: DEXAMETHASONE SOD PHOS (MDV) 100 MG/10 ML VIAL IVP SCH (09:19)
[2022-04-08] MEDS: polyethylene glycoL 3350 17 GM POWD.PACK PO SCH (09:19)
[2022-04-08] MEDS: PANTOPRAZOLE 40 MG/10 ML VIAL IVP SCH ×2 (09:20→21:17)
[2022-04-08] MEDS: SENNOSIDES-DOCUSATE SODIUM 1 EACH TAB PO SCH ×2 (09:20→21:20)
[2022-04-08] MEDS: QUEtiapine 50 MG TAB PO SCH ×2 (09:20→21:16)
[2022-04-08] MEDS: SODIUM BICARBONATE TAB 650 MG TAB PO SCH ×2 (09:20→21:16)
[2022-04-08] MEDS: bisacodyL 5 MG TABLET.DR PO SCH (09:20)
[2022-04-08] MEDS: SALT AND SODA MOUTHWASH 1,000 ML PO SCH ×3 (09:20→17:34)
[2022-04-08] MEDS: MAG HYDROX/AL HYDROX/SIMETH 30 ML, LIDOCAINE VISCOUS 2% 30 ML, diphenhydrAMINE ELIXIR 7... PO SCH ×15 (09:21→21:18)
[2022-04-08 12:00] VITALS: RESP 18
--- NOTE | 2022-04-08 18:06 | P.PN ---
Subjective Progress Note Date: 04/08/22 Principal diagnosis: Transformation High Grade B Cell Lymphoma Labwork remains stable Objective - Vital Signs Vital signs: Vital Signs Temp 97.8 F 04/08/22 05:00 Pulse 72 04/08/22 11:42 Resp 20 04/08/22 05:00 BP 152/72 04/08/22 05:00 Pulse Ox 100 04/08/22 05:00 FiO2 50 03/26/22 08:39 Intake & Output 04/07/22 04/08/22 04/08/22 18:59 06:59 18:59 Intake Total 350 Output Total 1300 1000 Balance -1300 -650 Weight 54 kg Intake: Oral 350 Output: Urine 1300 1000 Stool 0 Other: Voiding Method Indwelling Catheter Indwelling Catheter Indwelling Catheter # Bowel Movements 1 - Exam Gen.: NAD HEENT: Mucosa moist, no conjunctival pallor. Lymph:Bilateral small cervical lymphadenopathy Lungs: No respiratory distress. Heart: Tachy Abdomen: Soft, nontender. 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 Narrative/Plan: Biopsy is consistent with high grade lymphoma transformation - Status Post Day One CHOP chemo on 04/03/22 - Status Post GCSF - Daily CBC w/diff, CMP, MAg, Phos, Uric Acid, and LDH - Monitor closely for TLS - No transfusions needed today - LDH and TLS are improving overall Current Visit: Yes Status: Acute Code(s): N28.89 - OTHER SPECIFIED DISORDERS OF KIDNEY AND URETER SNOMED Code(s): 863730454 (2) Neoplasm related pain Narrative/Plan: - Continue regimen and Bowel protocol Current Visit: Yes Status: Acute Code(s): G89.3 - NEOPLASM RELATED PAIN (ACUTE) (CHRONIC) SNOMED Code(s): 19665195471253 (3) Persistent anxiety/Confusion - If continues imaging of brain is warranted for LM involvement, however he is going to require MRI with probable anesthesia or sedation as unlikely to tolerate (4) Acute Hypoxic Respiratory Failure - Initially improved, The past few days increased effort increased - Status post Thoracentesis - Monitor closely - Likely etiology of anxiety (5) Antiphospholipid Antibodies with Chronic appearance Coagulopathy - Note INR and PT will be chronically prolonged, which is unlikely to increased risk of bleeding in picture of chronic prolongation from APL PLAN: - COntinue PT/OT - COntinue daily lab monitoring - Pulm followig - Once stable discharge to [facility] versus short term rehab for improved performance - PLan for results of double and triple hit markers to determine next treatment per Dr. Chen, will see Dr. Chen after discharge in office to discuss further
[2022-04-08] MEDS: PARoxetine 20 MG TAB PO SCH (21:16)
[2022-04-09] MEDS: DRY MOUTH SPRAY 44.3 SPRAY/44.3 ML SPRAY MUCOUS MEM SCH ×4 (06:08→16:08)
[2022-04-09] MEDS: SYMBICORT 80-4.5 MCG INHALER INHALATION SCH (07:54)
[2022-04-09] MEDS: IPRATROPIUM 0.5 MG/2.5 ML NEBU INHALATION SCH ×3 (07:54→15:28)
[2022-04-09] MEDS: GABAPENTIN 100 MG CAP PO SCH (09:22)
[2022-04-09] MEDS: HYDROcodone/APAP 7.5-325MG 1 EACH TAB PO SCH ×2 (09:22→16:07)
[2022-04-09] MEDS: QUEtiapine 50 MG TAB PO SCH (09:22)
[2022-04-09] MEDS: SENNOSIDES-DOCUSATE SODIUM 1 EACH TAB PO SCH (09:23)
[2022-04-09] MEDS: MAG HYDROX/AL HYDROX/SIMETH 30 ML, LIDOCAINE VISCOUS 2% 30 ML, diphenhydrAMINE ELIXIR 7... PO SCH ×10 (09:23→16:43)
[2022-04-09] MEDS: SODIUM BICARBONATE TAB 650 MG TAB PO SCH (09:23)
[2022-04-09 09:26] LABS: Magnesium 1.9 mg/dL (1.5-2.4); Phosphorus 3.3 mg/dL (2.4-5.1); Uric Acid 5.5 mg/dL (3.7-8.7)
[2022-04-09 09:32] LABS: African American GFR (CKD) 116.4 (60.0-200.0); Albumin 3.5 g/dL (3.8-4.9); Albumin/Globulin Ratio 2.69 (1.60-3.17); Anion Gap 12.1 mmol/L (10.00-18.00); BUN/Creat Ratio 57.29 Ratio (12.00-20.00); Blood Urea Nitrogen 40.1 mg/dL (9.0-27.0); Calcium 9.1 mg/dL (8.7-10.3); Carbon Dioxide 18.9 mmol/L (20.0-27.5); Globulin 1.3 g/dL (1.6-3.3); Non-African American GFR(CKD) 100.4 (60.0-200.0); Potassium 4.8 mmol/L (3.5-5.5); Total Bilirubin 0.7 mg/dL (0.30-1.20); Total Protein 4.8 g/dL (6.2-8.2)
[2022-04-09] MEDS: polyethylene glycoL 3350 17 GM POWD.PACK PO SCH (09:36)
[2022-04-09] MEDS: bisacodyL 5 MG TABLET.DR PO SCH (09:36)
[2022-04-09] MEDS: MEGESTROL 400 MG/10 ML CUP PO SCH (09:37)
[2022-04-09] MEDS: DEXAMETHASONE SOD PHOS (MDV) 100 MG/10 ML VIAL IVP SCH ×2 (09:38→09:40)
[2022-04-09] MEDS: PANTOPRAZOLE 40 MG/10 ML VIAL IVP SCH (09:39)
[2022-04-09 10:34] LABS: HCT 41.5 % (39.6-50.0); HGB 12.8 g/dL (13.0-17.0); MCH 22.9 pg (27.0-32.0); MCHC 30.8 g/dL (32.0-37.0); MCV 74.1 fL (80.0-97.0); Mean Platelet Volume 9.2 fL (9.5-12.2); NRBC Per 100 WBC 0 /100 WBCS (0.0-0.0); Platelet Count 260 X 10*3/uL (140-440); RDW 19.9 % (11.5-14.5); WBC 4.55 X 10*3/uL (4.50-10.00)
[2022-04-09 10:35] LABS: Basophils # (M) 0 X 10*3/uL (0.00-0.10); Eosinophils # (M) 0 X 10*3/uL (0.04-0.35); Lymphocytes # (M) 1.77 X 10*3/uL (0.90-5.00); Monocytes # (M) 0 X 10*3/uL (0.20-1.00); Neutrophils # (M) 2.78 X 10*3/uL (2.00-8.90); Neutrophils % (M) 61 %
--- NOTE | 2022-04-09 10:59 | P.PN ---
Subjective Progress Note Date: 04/09/22 Principal diagnosis: Renal mass The patient is a 61-year-old male patient, known history of CLL on [place], chronic kidney stage III, COPD. He presented to the [facility] on 03/18/22 with abdominal pain has been going on for few weeks with progressive worsening over the past fe w days. Patient is nauseous but no vomiting. No hematemesis. No hematuria. Patient was taken [id number] naproxen and ibuprofen for his pain control for the past few days. He stated that he was supposed to follow-up with Dr. Faulkner from oncology last month but he canceled his appointment. Patient has a chronic exertional dyspnea, but it seems to be worsening. He is known to have COPD maintained on 3L home O2, and a combination of Advair and Spiriva on outpatient basis. He also carries a diagnosis of CLL that was followed up by Dr. Faulkner. He is known to have extensive lymphadenopathy related to his CLL. Based on the most recent oncology evaluation, there has been progression his CLL based on progression his lymphadenopathy. In the [facility], the patient was found to have a coagulation profile was abnormal, and the patient has been quite neuropathic even prior admissions. An abdominal CT of the abdomen and pelvis was done and it showed a left perinephric/retroperitoneal soft tissue density which is either a mass versus hematoma and this was not present on previous evaluation or there has been probably a subtle finding in 2020. There is also overall worsening in the lymphadenopathy about the abdomen and ascending into the mediastinum with splenomegaly. The patient also had small bilateral pleural effusions L>R. Abdominal ultrasound was then completed revealing a left perinephritic complex vascular mass, recommending further evaluation with MRI. MRI with and without contrast revealed large posterior perinephrotic mass with massive retroperitoneal adenopathy and massive splenomegaly. Oncology consulted interventional radiology to perform biopsy of renal mass. I NR remains elevated, unable to complete biopsy until INR has improved. Patient given vitamin K. On 03/23/22, patient was found to be hypoxic and had increasing oxygen needs. Repeat x-ray revealed increasing left lower lobe effusion. Pulmonology re-consulted at this time for evaluation. On 03/25/22 ultrasound of chest was completed which revealed an 11.8 cm pleural effusion pocket. Patient will likely need to undergo thoracentesis. However, INR still remains elevated at this time despite receiving multiple doses of Vitamin K. Oncology and interventional radiology continue to follow. The patient will also undergo biopsy of renal mass. Both the thoracentesis and the renal biopsy is on hold until the patient's INR is less than 1.5. 03/26 The patient was lethargic during examination. He was confused and unable to follow a conversation fully. He did state he still has lower left quadrant pain, but it is mild and much better today. He received Dilaudid prior to examination. Spoke with the patient's nephew, Dejon, via telephone. He states he is the patient's next of kin and would like to be updated regularly. He was told the patient's procedures are still on hold because his blood is too thin despite the vitamin K that was given. Awaiting oncology's recommendations. Dejon has never had conversations with the patient regarding his goals of care or wishes. Code status discussed at length. Dejon would like to wait for the renal biopsy and the thoracentesis before deciding on a plan of care moving forward. He would like the patient to remain a full code. 03/27 The patient is lying in bed and appears uncomfortable. He c/o LLQ pain. No family present at time of examination. Patient still slightly confused and has garbled speech.The patient's Fentanyl patch was discontinued yesterday. Per RN, the patient was barely responsive and Narcan had to be administered. Low d ose [place] ATC was added to pain regimen in attempt to keep pain more controlled. Dilaudid IV still available prn for severe pain. Discussed pain medication plan with RN, requested she call with any issues. Patient will likely need anther adjustment in pain medication. The patient denies any nausea. He states he has not been eating much due to a loss of appetite. Wanda added. The patient is currently on 9L NC with slightly labored breathing. SPO2 94%. Awaiting pulmonary to determine if patient will be able to have a thoracentesis today, INR 3.3 today despite receiving vitamin K. 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 Oncology has left message for IR as a biopsy for possible transformation of CLL is needed and per their message Saturday was holding off related to coagulopathy. Returned to patient's bedside to reassess pain. The patient woke up easily. He was a little confused as to where he was and what was going on. He reoriented easily. He stated his pain was "ok". The patient's nephew was present. Education was provided regarding the underlying conditions and poor prognosis. Code status was also addressed again. The patient's nephew is unsure about what to do. He would like to take some time to talk with the patient and his family. The patient is to remain a full code for now. The pulmonary service feels given the patients high INR, a thoracentesis would not be safe at this time. They do not feel like he would tolerate the procedure well. A lymph node biopsy is scheduled to be done later this afternoon. 03/28 The patient is lethargic, but awakens easily. He c/o abdominal pain. [place] dose increased to 7.5/325mg. The patient is very weak and debilitated. Code status addressed with patient who stated "I don't know". He is confused and unable to follow a conversation fully. His insight and judgment is not intact at this time. Spoke to oncology HAMMER ADJUSTER via telephone. She is hoping the retroperitoneal mass biopsy results come back tomorrow. She stated if his lymphoma has transformed to [place], it is very treatable and even considered curable. Updated the patient's nephew (DPOA), Dejon, via telephone. He is agreea ble in waiting for biopsy results before considering hospice. However, Dejon did agree to make the patient a DNR. 03/29 The patient was able to tell me he is in the hospital, the correct year, and his last name. He is lethargic, but wakens easily. Patient was receiving IV Dilaudid approximately every 2 hours despite scheduled [place]. Pain regimen changed to a low dose Fentanyl patch, and [place] and Dilaudid prn. Awaiting biopsy results for plan of care. Patient's nephew updated. 03/30 Patient resting in bed with eyes closed, no distress noted. Awakens easily to verbal stimulus. Stated he is "alright", and his pain is "ok" right now. Patient environmental safety specialist at bedside. Patient's nephew and sister is at the bedside. They stated they came early in hopes of talking to some of the physic ians, especially oncology. Contacted oncology in attempt of getting a time frame for their patient rounds the family. HAMMER ADJUSTER stated they are in the clinic this morning and will start rounding approximately 1300. Family awaiting biopsy results to make decisions moving forward, hospice vs. aggressive treatment. They have multiple questions regarding treatment if the patient's lymphoma has in fact transformed to Ruffin's. Plans in place for PICC line placement and TPN. Education provided regarding pain medication regimen. They agree patient appears comfortable. 1500 Family awaiting oncology for update. Patient going to IR for PICC line placement. Spoke to RN and family, asked them to call if any questions or concerns. There is no palliative care coverage over the weekend. Family given personal cell phone number to call if needed. 04/02 Patient confused, restless, and pulling at telemetry cables when examined. Nephew asleep at bedside. The patient states it is 2021 correctly, but when asked what month it is he states it is 2021 again. He stated he was in the [facility], but did not know what building he was in when asked specifically. He does not know who the president is either. Seroquel added BID. He stated his abdomen hurts a lot, but was unable to give a number of severity on a scale of 1-10. Fentanyl patch dose increased. Spoke to RN regarding new pain regimen. Patient environmental safety specialist at bedside. The oncologist had a lengthy discussion with the family on Saturday. They were advised that clinically the patient is more likely to either progressive CLL, or transformation to a more aggressive lymphoproliferative malignancy subtype, with the latter being favored. As most of lymphoproliferative malignancies are very treatable, but, specifically fast responses to treatment, it would be reasonable to continue aggressive supportive care with plan for active treatment, assuming pathology confirms a treatable. Awaiting the final pathology to decide for definitive regimen, it was recommended that the patient be treated with high-dose Decadron. The family was also advised that if the pathology showed a new, hard to treat malignancy, or a very aggressive lymphoid malignancy, requiring very high-dose regimens, it would be very reasonable to consider comfort care. In addition, the patient continued to decline, while on high-dose Decadron, it would also be recommended to consider the same. They had decided to continue current aggressive medical management. 04/03 The patient is restless and confused. He is awake,alert, and oriented to self. He stated he is in [facility]. When asked the month and year he answered 2021 for both questions. No family present at time of examination. He c/o abdominal pain. Nursing staff does not seem to be utilizing the prn [place], but is giving the IV Dilaudid. [place] changed to Q6H ATC. Continue Fentanyl patch. 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 Spoke with patient's nephew, Dejon, via telephone and reviewed the plan to start chemo today and the revised pain regimen. All questions answered. 04/04 Patient resting in bed with environmental safety specialist at bedside. Patient more alert today. He is less restless and does not appear agitated. However, he is still confused and impulsive at times. His speech is clearer and easier to understand. He states he is still having abdominal pain, but it has improved. He is cracking jokes and smiling today. He is scheduled for day 2 of his chemo regimen today. Spoke to Dejon via telephone and updated him. He states he will not be here today to visit, but several other family members will be. 04/05 The patient is alert and oriented x 2-3. He knows he's in the hospital, but continues to think he is in [facility]. He reorients easily. He is aware of his condition and why he is here. He knows the year, but was not sure if it was still the end of March or beginning of April. His speech is more comprehensible today. He reports that his pain is "pretty good today". He has not received any Dilaudid, Ativan, or Klonopin in the last 24 hours. He also states that his mouth is better and is aware that he needs to try and eat more. He says that he has been forcing himself to eat because he knows how important it is. He was evaluated by PM&R yesterday for IP rehab. Unfortunately, the patient has endurance issues and will not tolerate 3 hours a day of rehab. They recommend [facility]. Per oncology, he is done with this cycle of chemotherapy and will follow up on an outpatient basis. Dejon updated on patient's plan of care via telephone. He stated he would be up to visit this evening. 04/06 The patient is very talkative today. He is knows he is in [facility] today and why he is here. He states it is May 2022, but reorients to time easily. He is aware that Leonard Lucas is the president. He states that he is "doing fine and anxious to go home". He reports his pain is well controlled and requests to changes be made to the regimen at this time. He is currently on a Fentanyl 25mg patch and [place] 7.5/325 mg Q8H ATC. He has Dilaudid prn breakthrough pain, but has not needed any in approx 48 hrs. When asked what his goal is, he stated "I want it all". He states he has know doubt he can get stronger/better. He also stated "I don't know how much health I can achieve, but it is up to me to put in the work". He is agreeable to return home with his nephew, Dejon, with [facility] and PT/OT services. The patient is to have a left-sided thoracentesis by the pulmonary service today to optimize his breathing before discharge. Objective - Vital Signs Vital signs: Vital Signs Temp 97.6 F 04/09/22 05:00 Pulse 72 04/09/22 08:05 Resp 18 04/09/22 05:00 BP 136/77 04/09/22 05:00 Pulse Ox 95 04/09/22 05:00 FiO2 50 03/26/22 08:39 Intake & Output 04/08/22 04/09/22 04/09/22 18:59 06:59 18:59 Intake Total 300 Output Total 1300 1401 Balance -1300 -1101 Weight 53 kg Intake: Oral 300 Output: Urine 1300 1400 Stool 1 Other: Voiding Method Indwelling Catheter Indwelling Catheter # Bowel Movements 1 - Exam General: Patient awake and alert. No acute distress. Appears frail. HEENT: Head is atraumatic, normocephalic Sclerae are clear. Pupils equal, round and reactive to light bilaterally. . CV: Heart regular in rate and rhythm positive S1 and S2. No clicks, rubs or murmurs. Peripheral pulses equal. 2/4 Lungs: CTA, No wheezes rales or rhonchi. Respirations even and unlabored. 6L NC Abdomen/GI: Soft. Bowel sounds present in all 4 quadrants. Bowel sounds normoactive. + mild abdominal tenderness improving Musculoskeletal/ Extremities: DENNIS, + generalized weakness, cachectic Vascular: Radial pulses equal. 2/4, no peripheral edema Skin: Warm and dry. No rash. Neurologic: A&O times 3. confused at times, No agitation/restlessness. Speech clear. Follows commands. Psychiatric: normal affect - Labs CBC & Chem 7: 04/09/22 05:27 04/09/22 05:27 Labs: Abnormal Lab Results - Last 24 Hours (Table) 04/09/22 04/09/22 Range/Units 05:27 05:27 Hgb 12.8 L (13.0-17.0) g/dL MCV 74.1 L (80.0-97.0) fL MCH 22.9 L (27.0-32.0) pg MCHC 30.8 L (32.0-37.0) g/dL RDW 19.9 H (11.5-14.5) % MPV 9.2 L (9.5-12.2) fL Monocytes # (Manual) 0 L (0.20-1.00) X 10*3/uL Eosinophils # (Manual) 0 L (0.04-0.35) X 10*3/uL Sodium 134 L (135-145) mmol/L Carbon Dioxide 18.9 L (20.0-27.5) mmol/L BUN 40.1 H (9.0-27.0) mg/dL BUN/Creatinine Ratio 57.29 H (12.00-20.00) Ratio Glucose 122 H (70-110) mg/dL AST 8 L (14-35) U/L Total Protein 4.8 L (6.2-8.2) g/dL Albumin 3.5 L (3.8-4.9) g/dL Globulin 1.3 L (1.6-3.3) g/dL Microbiology - Last 24 Hours (Table) 04/06/22 15:42 Gram Stain - Preliminary Pleural Fluid Body Fluid Culture - Preliminary Assessment and Plan Assessment: Symptoms * Pain - "very little pain". Continue Tylenol, Neurotin, Fentanyl patch, [place], and Dilaudid. * Fatigue - Generalized weakness and fatigue, PT/OT * SOB - Yes- Improving. Continue Symbicort, Albuterol, Atrovent and Lasix. Uses 3L home O2. Currently on 6L NC. * Insomnia - Occasional, Continue Melatonin prn * N/V - No, Continue Zofran prn * Anxiety - No, continue Ativan and Klonopin prn * Depression - No, Continue Paxil * Confusion - Yes, Continue Seroquel - improving * Agitation - No,continue Seroquel * Hallucinations - No * Appetite/weight loss - + loss of appetite and recent weight loss, encourage PO intake, continue with regular diet and ensure TIDWM and magic cups. Continue Megace. TPN discontinued * Dysphagia - No * Constipation - LBM 04/08. Continue Senokot -S and Miralax daily. Dulcolax suppository prn. * Incontinence - Mays catheter discontinued. DTV * Itch - No * Mucoitis - needs good oral hygiene, continue swish and swallow, mouthkote, and salt and soda mouthwash - Improving Plan: Summary/Goals - Patient alert and oriented x 3. Mildly confused at times and patient aware of it. States he's "loopy" sometimes. Easily reoriented. He states his breathing feels better since his thoracentesis on Saturday. Pulmonary was able to remove 1.8L of fluid off the left side. His sister is at the bedside. Patient states it is "now time to get working" to get better. He is motivated to get more physically active. PT states they will take him for a walk this morning. The patient is also requesting a shower. assistant professor of education notified. store loss prevention manager currently working on rehab placement and insurance authorization. Plan - [facility] Advanced Directives - No, none on file Code Status - DNR Thank you for this consult Antonella Paz [facility] Palliative Care [place] [phone] Email: [email or web address] Time with Patient: Less than 30
[2022-04-09 11:34] VITALS: BP 127/70; TEMP 98.1
[2022-04-09] MEDS: SALT AND SODA MOUTHWASH 1,000 ML PO SCH ×2 (15:15→16:08)
[2022-04-09 15:41] VITALS: PULSE 74
--- NOTE | 2022-04-09 16:09 | P.PN ---
Subjective Progress Note Date: 04/09/22 Principal diagnosis: Ricters Transformation In f/u pt is feeling better, more alert and interactive, less confusion. Tolerating oral intake, is wanting to get moving around, still weak though. Objective - Vital Signs Vital signs: Vital Signs Temp 98.1 F 04/09/22 11:23 Pulse 86 04/09/22 11:23 Resp 18 04/09/22 11:23 BP 127/70 04/09/22 11:23 Pulse Ox 97 04/09/22 11:23 FiO2 50 03/26/22 08:39 Intake & Output 04/08/22 04/09/22 04/09/22 18:59 06:59 18:59 Intake Total 300 Output Total 1300 1401 1 Balance -7134 -1101 -1 Weight 53 kg Intake: Oral 300 Output: Urine 1300 1400 Stool 1 1 Other: Voiding Method Indwelling Catheter Indwelling Catheter Indwelling Catheter # Voids 1 # Bowel Movements 1 - Constitutional General appearance: Present: average body habitus, cooperative, no acute distress - EENT Eyes: Present: anicteric sclerae, EOMI ENT: Present: hearing grossly normal, normal oropharynx - Respiratory Respiratory: bilateral: CTA - Cardiovascular Rhythm: regular Heart sounds: normal: S1, S2 Abnormal Heart Sounds: Absent: systolic murmur, diastolic murmur, rub, S3 Gal lop, S4 Gallop, click, other - Peripheral edema leg Peripheral Edema: bilateral: None - Gastrointestinal General gastrointestinal: Present: normal bowel sounds, soft - Neurologic Neurologic: Present: CNII-XII intact - Musculoskeletal Musculoskeletal: Present: generalized weakness, strength equal bilaterally - Psychiatric Psychiatric: Present: A&O x's 3, appropriate affect, intact judgment & insight - Labs CBC & Chem 7: 04/09/22 05:27 04/09/22 05:27 Labs: Abnormal Lab Results - Last 24 Hours (Table) 04/09/22 04/09/22 Range/Units 05:27 05:27 Hgb 12.8 L (13.0-17.0) g/dL MCV 74.1 L (80.0-97.0) fL MCH 22.9 L (27.0-32.0) pg MCHC 30.8 L (32.0-37.0) g/dL RDW 19.9 H (11.5-14.5) % MPV 9.2 L (9.5-12.2) fL Monocytes # (Manual) 0 L (0.20-1.00) X 10*3/uL Eosinophils # (Manual) 0 L (0.04-0.35) X 10*3/uL Sodium 134 L (135-145) mmol/L Carbon Dioxide 18.9 L (20.0-27.5) mmol/L BUN 40.1 H (9.0-27.0) mg/dL BUN/Creatinine Ratio 57.29 H (12.00-20.00) Ratio Glucose 122 H (70-110) mg/dL AST 8 L (14-35) U/L Total Protein 4.8 L (6.2-8.2) g/dL Albumin 3.5 L (3.8-4.9) g/dL Globulin 1.3 L (1.6-3.3) g/dL Microbiology - Last 24 Hours (Table) 04/06/22 15:42 Gram Stain - Preliminary Pleural Fluid Body Fluid Culture - Preliminary Assessment and Plan (1) DLBCL (diffuse large B cell lymphoma) Current Visit: Yes Status: Acute Priority: High Code(s): C83.30 - DIFFUSE LARGE B-CELL LYMPHOMA, UNSPECIFIED SITE SNOMED Code(s): 856191121 (2) Mucositis Current Visit: Yes Status: Acute Priority: High Code(s): K12.30 - ORAL MUCOSITIS (ULCERATIVE), UNSPECIFIED SNOMED Code(s): 41000365 Plan: 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 S/P cycle #1 CHOP. Pt is doing well post chemo, no significant side effects or heme toxicities. Oral meds for mucositis cont. Subacute rehab on D/C. F/U in ofc next week if pt can come in from rehab. Pt family has requested referral to [facility] as that is the facility pt will be closer to as he moves to live with family. Will get referral made. Cont f/u here until complete. attests: I have seen pt, performed H&P, developed impression and plan of care. Discussed with dictator. Agree with dictation, documented as a scribe.
--- NOTE | 2022-04-09 17:16 | P.DS ---
Providers Date of admission: 03/18/22 10:02 Expected date of discharge: 04/09/22 Attending physician: Geneva Puente MD Consults: 03/18/22 09:44 Consult Physician Routine Consulting Provider: Teri Chen Consult Reason/Comments: CLL Do you want consulting provider notified?: Yes, Notify in am 03/18/22 09:56 Consult Physician Routine Consulting Provider: Edson Swift Consult Reason/Comments: LEFT KIDNEY MASS Do you want consulting provider notified?: Yes 03/18/22 10:31 Consult Physician Routine Consulting Provider: Abbey Mack Consult Reason/Comments: KEERTHI Do you want consulting provider notified?: Yes 03/22/22 16:13 Consult to Palliative Care Stat Consulting Provider: Antonella Paz Consult Reason/Comments: CLL- kidney mass, multiple masses Do you want consulting provider notified?: Yes 03/23/22 14:16 Consult Physician Routine Consulting Provider: Ector Florez Consult Reason/Comments: Increasing left lower lobe opacity, increase need for oxygen Do you want consulting provider notified?: Yes 04/04/22 14:26 Consult Physician Routine Consulting Provider: Damien Graham Consult Reason/Comments: in pt rehab Do you want consulting provider notified?: Yes Primary care physician: Mikhail Masters Hospital Course: Left flank pain Left perinephric complex mass Chronic coagulopathy Chronic anemia of chronic disease Lupus anticogulant Chronic lymphocytic leukemia Splenomegaly with lymphadenopathy throughout abdomen and ascending into mediastinum Acute kidney injury on stage III chronic kidney disease , improving Mild Hypercalcemia Bilateral pleural effusions, no evidence of pneumonia COPD without acute exacerbation Pt is a 61-year-old male patient, [facility], chronic k idney stage III, COPD, who presented with a left flank pain for a few weeks with progressive worsening. In the ED, the patient was found to have a hemoglobin of 14.1 with a white cell count of 18.9. Coagulation profile was abnormal and the patient has been quite neuropathic even prior admissions. He has chronic kidney disease in the creatinine is at 1.7 with a BUN of 26 and creatinine of 1.7. Sodium is at 137. COVID 19 testing is negative. Electrolytes are normal. Calcium level was 11.7. A CAT scan of the abdomen and pelvis was done and it showed a left perinephric/retroperitoneal soft tissue density which is either a mass versus hematoma and this was not present on previous evaluation or there has been probably a subtle finding in 202. There is also overall worsening in the lymphadenopathy about the abdomen and ascending into the mediastinum with splenomegaly. The patient also has small bilateral pleural effusions. The patient is currently on room air oxygen. . Patient was admitted under our services with consultation to oncology, vascular surgery, nephrology, and urology. Abdominal ultrasound was completed revealing a left perinephritic complex vascular mass, recommending further evaluation with MRI. MRI with and without contrast revealed large posterior perinephrotic mass with massive retroperitoneal adenopathy and massive splenomegaly. Oncology consulted interventional radiology to perform biopsy of renal mass. Patient given vitamin K. On 03/23/22, patient was found to be hypoxic and had increasing oxygen needs. Repeat x-ray revealed increasing left lower lobe effusion. Pulmonology re- consulted at this time for evaluation. On 03/25/22 ultrasound of chest was completed which revealed an 11.8 cm pleural effusion pocket. Patient will likely need to undergo thoracentesis, however due to persistently elevated INR it was deemed unsafe to perform at this time. Patient currently on palliative care and underwent renal mass biopsy on 03/27/22. He was started on high-dose steroids, pending biopsy results. 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 Patient received fifth dose of steroids and CHOP chemotherapy treatment 04/03/22. Patient has made complete turnaround after receiving CHOP chemotherapy. Pulmonary reconsulted and completed thoracentesis for drainage of pleural effusion pocket on 04/06/22 removing 1800 mL of turbid colored fluid. Patient worked with PT/OT and target discharge plan is for patient to be discharged home with nephew and his along with home care. I spent 49 minutes coordinating this complex discharge. Gen: awake, alert HEENT: normocephalic, atraumatic, good hearing acuity, moist mucous membranes Resp: good air exchange, breathing comfortably with no accessory muscle use CVS: good distal perfusion x 4, GI: soft, NTTP, ND : no SPT, no CVAT, goel catheter not present MSK: no pitting edema, no clubbing Neuro: non-focal, moving all extremities Psych: cooperative, euthymic mood Patient Condition at Discharge: Fair Plan - Discharge Summary Discharge Rx Participant: No New Discharge Prescriptions: New bisacodyL [Dulcolax] 5 mg PO DAILY #30 tab polyethylene glycoL 3350 [Miralax] 17 gm PO DAILY #30 packet Sennosides-Docusate Sodium [Senokot-S] 2 each PO BID #120 tab QUEtiapine [SEROquel] 50 mg PO BID #60 tab Acetaminophen Tab [Tylenol] 650 mg PO Q6HR PRN tab PRN Reason: Mild Pain Or Fever > 100.5 Sodium Bicarbonate Tab 650 mg PO BID #60 tab Continue Tiotropium [place] [Spiriva] 1 cap INHALATION RT-DAILY PARoxetine [Paxil] 20 mg PO HS Albuterol Sulfate [Proair Hfa] 2 puff INHALATION RT-Q6H PRN PRN Reason: Shortness Of Breath Omeprazole 20 mg PO BID Fluticasone Propion/Salmeterol [Advair 250-50 Diskus] 1 puff INHALATION RT- BID Cyclobenzaprine [Flexeril] 10 mg PO HS PRN PRN Reason: Muscle Pain Albuterol Nebulized [Ventolin Nebulized] 2.5 mg INHALATION RT-QID PRN PRN Reason: Shortness Of Breath Ferrous Sulfate [Iron (65 MG Elemental)] 325 mg PO DAILY [place]-3 Fatty Acids/Fish Oil [Fish Oil 1,000 mg Softgel] 1 cap PO DAILY clonazePAM [KlonoPIN] 0.5 mg PO BID PRN PRN Reason: Anxiety Ascorbic Acid [Vitamin C] 1,000 mg PO DAILY Gabapentin [Neurontin] 100 mg PO BID Vitamin B Complex 1 cap PO DAILY ondansetron HCL [Zofran] 8 mg PO TID PRN PRN Reason: Nausea Changed Aspirin 81 mg PO DAILY #30 tab Discontinued Furosemide [Lasix] 20 mg PO DAILY Acalabrutinib [Calquence] 100 mg PO BID Discharge Medication List Albuterol Sulfate [Proair Hfa] 2 puff INHALATION RT-Q6H PRN 09/23/20 [History] Cyclobenzaprine [Flexeril] 10 mg PO HS PRN 09/23/20 [History] Fluticasone Propion/Salmeterol [Advair 250-50 Diskus] 1 puff INHALATION RT-BID 09/23/20 [History] Omeprazole 20 mg PO BID 09/23/20 [History] PARoxetine [Paxil] 20 mg PO HS 09/23/20 [History] Tiotropium [place] [Spiriva] 1 cap INHALATION RT-DAILY 09/23/20 [History] Ascorbic Acid [Vitamin C] 1,000 mg PO DAILY 04/24/21 [History] Albuterol Nebulized [Ventolin Nebulized] 2.5 mg INHALATION RT-QID PRN 07/18/21 [History] Ferrous Sulfate [Iron (65 MG Elemental)] 325 mg PO DAILY 07/18/21 [History] Gabapentin [Neurontin] 100 mg PO BID 07/18/21 [History] [place]-3 Fatty Acids/Fish Oil [Fish Oil 1,000 mg Softgel] 1 cap PO DAILY 07/21/21 [History] Vitamin B Complex 1 cap PO DAILY 07/21/21 [History] clonazePAM [KlonoPIN] 0.5 mg PO BID PRN 03/18/22 [History] ondansetron HCL [Zofran] 8 mg PO TID PRN 03/18/22 [History] Acetaminophen Tab [Tylenol] 650 mg PO Q6HR PRN tab 04/09/22 [Rx] Aspirin 81 mg PO DAILY #30 tab 04/09/22 [Rx] QUEtiapine [SEROquel] 50 mg PO BID #60 tab 04/09/22 [Rx] Sennosides-Docusate Sodium [Senokot-S] 2 each PO BID #120 tab 04/09/22 [Rx] Sodium Bicarbonate Tab 650 mg PO BID #60 tab 04/09/22 [Rx] bisacodyL [Dulcolax] 5 mg PO DAILY #30 tab 04/09/22 [Rx] polyethylene glycoL 3350 [Miralax] 17 gm PO DAILY #30 packet 04/09/22 [Rx] Follow up Appointment(s)/Referral(s): Mikhail Masters MD [Primary Care Provider] - 1-2 days Kemi Zapien ANPBC [Nurse Practitioner] - 04/16/22 3:30 pm (At [facility] [address] [facility], [place], [address]) [employer] [facility] [NON-STAFF] - 1 Week
== END 2022-04-09 18:47 | disposition home health service (06) | DRG 840 ==
LOC: EC 04:51 → 5NMEDONC 10:02 → 3SCARD 10:38 → 5NMEDONC 04-02 18:36
PROVIDERS: ADMIT Hospitalist; ATTEND Hospitalist
PROC: 0WBH3ZX Excision of Retroperitoneum, Percutaneous Approach, Diagnostic (ICD-10-PCS; 2022-03-27)
PROC: 02HV33Z Insertion of Infusion Device into Superior Vena Cava, Percutaneous Approach (ICD-10-PCS; 2022-03-30)
PROC: 3E0436Z Introduction of Nutritional Substance into Central Vein, Percutaneous Approach (ICD-10-PCS; principal; 2022-03-30 07:30)
PROC: 3E04305 Introduction of Other Antineoplastic into Central Vein, Percutaneous Approach (ICD-10-PCS; 2022-04-03)
PROC: 0W9B3ZX Drainage of Left Pleural Cavity, Percutaneous Approach, Diagnostic (ICD-10-PCS; 2022-04-06)
DX: C83.38 Diffuse large B-cell lymphoma, lymph nodes of multiple sites (principal); E43 Unspecified severe protein-calorie malnutrition; J96.01 Acute respiratory failure with hypoxia; G93.41 Metabolic encephalopathy; R64 Cachexia; D68.62 Lupus anticoagulant syndrome; Z68.1 Body mass index [BMI] 19.9 or less, adult; N17.9 Acute kidney failure, unspecified; E87.2 Acidosis; J90 Pleural effusion, not elsewhere classified; J98.11 Atelectasis; D63.1 Anemia in chronic kidney disease; J43.9 Emphysema, unspecified; N18.31 Chronic kidney disease, stage 3a; Z66 Do not resuscitate; Z20.822 Contact with and (suspected) exposure to COVID-19; K12.30 Oral mucositis (ulcerative), unspecified; E86.1 Hypovolemia; E86.0 Dehydration; D63.0 Anemia in neoplastic disease; E83.52 Hypercalcemia; T39.395A Adverse effect of other nonsteroidal anti-inflammatory drugs [NSAID], initial encounter; G89.3 Neoplasm related pain (acute) (chronic); I12.9 Hypertensive chronic kidney disease with stage 1 through stage 4 chronic kidney disease, or unspecified chronic kidney disease; E83.42 Hypomagnesemia; E79.0 Hyperuricemia without signs of inflammatory arthritis and tophaceous disease; E87.70 Fluid overload, unspecified; F41.9 Anxiety disorder, unspecified; F40.240 Claustrophobia; F32.A Depression, unspecified; G47.00 Insomnia, unspecified; K59.00 Constipation, unspecified; R16.1 Splenomegaly, not elsewhere classified; I89.0 Lymphedema, not elsewhere classified; D75.839 Thrombocytosis, unspecified; R33.9 Retention of urine, unspecified; R32 Unspecified urinary incontinence; D72.829 Elevated white blood cell count, unspecified; T38.0X5A Adverse effect of glucocorticoids and synthetic analogues, initial encounter; Z79.82 Long term (current) use of aspirin; Z79.51 Long term (current) use of inhaled steroids; Z79.899 Other long term (current) drug therapy; Z60.2 Problems related to living alone; Z85.6 Personal history of leukemia; Z74.1 Need for assistance with personal care; Z86.16 Personal history of COVID-19; Z87.891 Personal history of nicotine dependence; Z71.3 Dietary counseling and surveillance; Z88.0 Allergy status to penicillin; Z82.49 Family history of ischemic heart disease and other diseases of the circulatory system
CPT/HCPCS: 36415; 36573; 49180; 71045; 71046; 74176; 74183; 76604; 76705; 80048; 80053; 81003; 82150; 82164; 82306; 82330; 82652; 82784; 82945; 83010; 83519; 83605; 83615; 83690; 83735; 83883; 83970; 84100; 84145; 84155; 84157; 84165; 84439; 84443; 84478; 84484; 84550; 85025; 85027; 85379; 85384; 85598; 85610; 85613; 85652; 85730; 85732; 86140; 86147; 86334; 86335; 86850; 86900; 86901; 87040; 87070; 87116; 87205; 87206; 87635; 88108; 88305; 88341; 88342; 89050; 93005; 93306; 94640; 94760; 96361; 96365; 96375; 96376; 99285